=== PATIENT | female | born 1955 | race Caucasian/White ===

== ENCOUNTER → 2018-09-20 10:39 | Outpatient (CLI) | payer OTHER, SELFPAY ==
[2018-09-20 10:47] LABS: Bacteria 0 SEEN /hpf (None Seen); Mucous, Urine 0 SEEN /hpf (<or=2+); Red Blood Cells-Urine 0 SEEN /hpf (0-5); Squamous Epithelial Cells - UA 0 SEEN /hpf (5-10); White Blood Cells 0 SEEN /hpf (0-5)
[2018-09-20 12:37] LABS: Absolute Lymphocyte Count 2.64 X10^3/ul (0.83-4.51); Absolute Neutrophil Count 4.2 X10^3/uL (2.0-7.7); Basophil# 0.04 X10^3/uL; Basophil% 0.5 % (0-1); Eosinophil# 0.14 X10^3/uL; Eosinophils% 1.8 % (0-5); Hematocrit 36.3 % (37-47); Hemoglobin 11.7 g/dl (12.0-15.0); Lymphocyte # 2.64 X10^3/ul (4.0); Lymphocyte % 34.2 % (19-41); Mean Corp Hgb Conc 32.2 g/gl (32-36); Mean Corpuscular Hgb 26.8 pg (27.0-32.0); Mean Corpuscular Volume 83.3 fL (81-99); Mean Platelet Vol. 11.6 fl (6.2-12.0); Monocyte# 0.72 X10^3/uL; Monocyte% 9.3 % (0-10); Neutrophil # 4.15 X10^3/uL (2.7-7.7); Neutrophil % 53.8 % (47-70); Platelet Count 331 K/mm3 (150-450); RBC Distribution Width CV 14.8 % (11.6-14.6); RBC Distribution Width SD 44.4 fl (35.1-43.9); Red Blood Count 4.36 M/mm3 (4.2-5.4); White Blood Count 7.7 K/mm3 (4.4-11.0)
[2018-09-20 12:39] LABS: Color, Urine Yellow (Yellow); Glucose, Dipstick Normal (Normal); Ketone-Dipstick Negative (Negative); Leukocyte Esterase-Dipstick 25 /ul (Negative); Nitrite-Dipstick Negative (Negative); Occult Blood-Urine Negative /ul (Negative); Protein-Dipstick Negative (Negative); Specific Gravity, Urine 1.015 (1.002-1.030); Urine Bilirubin Dipstick Negative (Negative); Urine Clarity Clear (Clear); Urine Urobilinogen Normal (Normal)
[2018-09-20 12:41] LABS: POSITIVE COUNT NO; POSITIVE DIFFERENTIAL NO; POSITIVE MORPHOLOGY NO
[2018-09-20 12:50] LABS: Microalbumin,Random Urine 5.3 mg/L (NO RANGE EST.)
[2018-09-20 13:09] LABS: Hemoglobin A1c 6.9 % (4.2-6.3)
[2018-09-20 13:16] LABS: ALB/GLOB Ratio 1.2 RATIO (0.9-2.4); AST(SGOT) 19 U/L (15-37); Alanine Aminotransfer ALT/SGPT 30 U/L (13-56); Albumin, Serum 4.3 g/dL (3.2-5.0); Alkaline Phosphatase 41 U/L (45-117); Anion Gap 8 (5-15); BUN 19 mg/dL (7-18); BUN/Creat Ratio 22.9 RATIO (10-20); CPK Total, Creatine Kinase 103 U/L (26-192); Calcium,Total 9.3 mg/dL (8.5-10.1); Chloride 103 mmol/L (98-107); Cholesterol 169 mg/dL (200); Creatinine, Serum 0.83 mg/dL (0.55-1.02); EST Glomerular Filtration Rate 74 mL/min (>60); Est Glom Filt Rate - Afr Amer 90 mL/min (>60); Ferritin 6 ng/mL (8-252); Globulin 3.6 g/dL (2.2-4.2); Glucose 88 mg/dL (74-106); High Density Lipoprotein 55 mg/dL; Magnesium 1.6 mg/dL (1.6-2.6); Potassium 3.9 mmol/L (3.5-5.1); Protein, Total 7.9 g/dL (6.4-8.2); Sodium Level 137 mmol/L (136-145); T4 Free Direct 0.96 ng/dL (0.76-1.46); Thyroid Stim Hormone (TSH) 2.35 uIU/mL (0.358-3.74); Triglycerides 165 mg/dL; Very Low Density Lipoprotein 33 mg/dL (5-40)
[2018-09-20 14:16] LABS: Vitamin D,25 Hydroxy 43.2 ng/mL (29.95-100.01)
[2018-09-21 11:44] LABS: Iron 34 ug/dL (50-170); Iron Binding Capacity,Total 368 ug/dL (250-450); PERCENT IRON SATURATION 9.2 % (15.0-55.0)
== END ==
PROVIDERS: Family Provider Family Medicine; PCP Family Medicine; Referring Provider Family Medicine; Visit Provider Family Medicine
DX: I10 Essential (primary) hypertension (principal); E78.5 Hyperlipidemia, unspecified; E11.9 Type 2 diabetes mellitus without complications; E04.1 Nontoxic single thyroid nodule; D64.9 Anemia, unspecified; E55.9 Vitamin D deficiency, unspecified; R25.2 Cramp and spasm
CPT/HCPCS: 36415; 80053; 80061; 81001; 82043; 82306; 82550; 82570; 82728; 83036; 83540; 83550; 83735; 84439; 84443; 85025

== ENCOUNTER → 2018-10-11 10:19 | Outpatient (CLI) | payer OTHER, SELFPAY ==
[2018-10-11 12:39] LABS: Absolute Lymphocyte Count 2.48 X10^3/ul (0.83-4.51); Absolute Neutrophil Count 4.7 X10^3/uL (2.0-7.7); Basophil# 0.05 X10^3/uL; Basophil% 0.6 % (0-1); Eosinophil# 0.13 X10^3/uL; Eosinophils% 1.6 % (0-5); Hematocrit 35.5 % (37-47); Hemoglobin 11.4 g/dl (12.0-15.0); Lymphocyte # 2.48 X10^3/ul (4.0); Lymphocyte % 30.8 % (19-41); Mean Corp Hgb Conc 32.1 g/gl (32-36); Mean Corpuscular Hgb 27.1 pg (27.0-32.0); Mean Corpuscular Volume 84.3 fL (81-99); Mean Platelet Vol. 10.9 fl (6.2-12.0); Monocyte# 0.67 X10^3/uL; Monocyte% 8.3 % (0-10); Neutrophil % 58.6 % (47-70); Platelet Count 333 K/mm3 (150-450); RBC Distribution Width SD 46.3 fl (35.1-43.9); Red Blood Count 4.21 M/mm3 (4.2-5.4)
[2018-10-11 12:44] LABS: POSITIVE COUNT NO; POSITIVE DIFFERENTIAL NO; POSITIVE MORPHOLOGY NO
[2018-10-11 13:01] LABS: Ferritin 9 ng/mL (8-252); Iron 62 ug/dL (50-170); Iron Binding Capacity,Total 368 ug/dL (250-450)
== END ==
PROVIDERS: Family Provider Family Medicine; PCP Family Medicine; Referring Provider Family Medicine; Visit Provider Family Medicine
DX: D50.9 Iron deficiency anemia, unspecified (principal)
CPT/HCPCS: 36415; 82728; 83540; 83550; 85025

== ENCOUNTER → 2018-10-12 13:12 | Outpatient (CLI) | payer OTHER, SELFPAY ==
--- NOTE | 2018-10-12 13:18 | ECHOD_ITS ---
Reason For Study: Murmur Procedure This was a 2D Doppler, Color Flow transthoracic echocardiogram. Exam performed in department. Left Ventricle Normal size and thickness. Left ventricular systolic function is normal. The estimated ejection fraction is 60 %. No evidence for diastolic dysfunction. No regional wall motion abnormalities noted. Right Ventricle Normal RV size. Normal systolic function. Atria Normal left atrium. Normal right atrium. No doppler evidence for ASD. Mitral Valve Anterior leaflet diffuse mitral valve thickening. There is no mitral valve stenosis. No mitral valve insufficiency. Tricuspid Valve There is no tricuspid stenosis. Unable to estimate RV systolic pressure due to insufficient tricuspid regurgitant envelope. No tricuspid valve insufficiency. Aortic Valve Trisinus/trileaflet aortic valve. Mild diffuse aortic valve thickening. There is no aortic stenosis. No aortic valve insufficiency. Pulmonic Valve There is no pulmonic valvular stenosis. No pulmonic valve insufficiency. Great Vessels Normal aortic root. Pericardium/Pleural No pericardial effusion. MMode/2D Measurements & Calculations LVIDd: 4.4 cm IVSd: 0.84 cm LVOT diam: 2.1 cm LVIDs: 2.6 cm LVPWd: 0.99 cm LVOT area: 3.5 cm2 RVDd: 3.1 cm FS: 40.8 % Ao root diam: 3.4 cm LAV(MOD-bp): 28.2 ml LA A4 area: 11.9 cm2 LAV(MOD-bp) Indexed: 15.8 ml/m2 LAV(MOD-sp2): 31.7 ml LAV(MOD-sp4): 26.1 ml RA A4 area: 11.9 cm2 Doppler Measurements & Calculations MV E max anibal: 80.4 cm/sec Lat Peak E' Anibal: 11.7 cm/sec Med Peak E' Anibal: 8.9 cm/sec MV A max anibal: 92.3 cm/sec E/E' lat: 6.9 E/E' med: 9.1 MV E/A: 0.87 Ao V2 max: 201.5 cm/sec LV V1 max: 133.3 cm/sec SV(LVOT): 86.0 ml Ao max P.3 mmHg LV V1 max P.1 mmHg Ao V2 mean: 130.2 cm/sec LV V1 mean P.5 mmHg Ao mean P.7 mmHg LV V1 mean: 88.2 cm/sec Ao V2 VTI: 34.3 cm LV V1 VTI: 24.4 cm JOS(I,D): 2.5 cm2 JOS(V,D): 2.3 cm2 PA V2 max: 99.1 cm/sec Interpretation Summary Left ventricular systolic function is normal. The estimated ejection fraction is 60 %. No evidence for diastolic dysfunction. Mild diffuse aortic valve thickening. Anterior leaflet diffuse mitral valve thickening. Ordering Physician: Marcel Marina Referring Physician: Marcel Marina Performed By: Opal Gentile SURENDRA
--- NOTE | 2018-10-12 14:31 | US_ITS ---
STUDY: THYROID ULTRASOUND REASON FOR EXAM: Female, 63 years old. Thyroid nodules TECHNIQUE: Ultrasound evaluation of the thyroid was performed with real-time and static wallace-scale imaging. COMPARISON: None. FINDINGS: RIGHT LOBE: The right lobe of the thyroid gland measures 3.9 x 1.6 x 1.5 cm. There is a homogeneous echotexture. There are multiple solid nodules within the right lobe. The 3 largest measure. 5 x 3 x 4.4 mm. There is additional solid nodule measuring 1.1 x 0.76 x 0.7 cm. There is a third solid nodule measuring 3.8 x 2.7 x 3.4 mm. LEFT LOBE: The left lobe of the thyroid gland measures 3.3 x 1.2 x 1.6 cm. There is a homogeneous echotexture. There are multiple solid thyroid nodules. The largest 3 nodules measure. 6.3 x 4.7 x 6.6 mm. 5.7 x 3.6 x 6.3 mm. 4.8 x 3.6 x 3.3 mm. ISTHMUS: The isthmus measures 3 mm . The regional lymph nodes are normal. US/Thyroid IMPRESSION: Multinodular goiter, ultrasound follow-up in 6 months is recommended. Electronically Signed: Hamzah Braxton, at 22:18 EDT Tel , Service support ,
== END ==
PROVIDERS: Family Provider Family Medicine; PCP Family Medicine; Referring Provider Family Medicine; Visit Provider Family Medicine
DX: R01.1 Cardiac murmur, unspecified (principal); E04.1 Nontoxic single thyroid nodule
CPT/HCPCS: 76536; 93306

== ENCOUNTER → 2018-10-23 16:26 | Outpatient (CLI) | payer OTHER, SELFPAY ==
--- NOTE | 2018-10-23 09:00 | ASPS_PTH ---
PATIENT: MARTHA FABIAN [facility][id number] AGE/SX: 69/F ROOM: RE10/23/[address]: Dr. Deon Keita MD : 1955 BED: DIS: SPEC #: [id number] RECD: 10/23/18 15:10 STATUS: KATERYNA ANGELA #: [id number] MIKA: 10/23/18 09:[address]: Deon Kieta DEPT: CYTOLOGY RECD BY: Glo Stanley ENTERED: 10/24/18 10:07 SP TYPE: ASPIRATION OTHR DR: Dr. Marcel Marina MD Tissues: Thyroid gland, NOS Procedures: Special Stain Group II Cytology Other HEADER OPERATION: Ultrasound guided fine needle aspiration, right thyroid PRE-OP DIAGNOSIS: Multinodular goiter EO9.2 TISSUE SUBMITTED: Fine needle aspiration, right thyroid DIAGNOSIS CYTOLOGY Right thyroid, ultrasound-guided fine needle aspiration (smears): Consistent with benign follicular nodule. Adequate for evaluation. SJ:neeta 10/25/18 COMMENT Immediate cytologic evaluation to determine adequacy is not applicable. Correlation with clinical, radiologic findings and appropriate follow up are necessary. CYTOLOGY STUDY Slides are reviewed. CYTOLOGY GROSS Received are 12 smears labeled with the patient's name and designated per the requisition as FNA right thyroid. Submitted for staining. / CC:cc 10/24/18 TC:5 CPT: 41363
[2018-10-23 09:11] VITALS: BMI 31.1
== END ==
PROVIDERS: Family Provider Family Medicine; PCP Family Medicine; Referring Provider Surgery; Visit Provider Surgery
DX: E04.2 Nontoxic multinodular goiter (principal)
CPT/HCPCS: 88161; 88313

== ENCOUNTER 2018-12-10 10:00 | Outpatient (RCR) | payer OTHER, SELFPAY ==
[2018-10-23 09:11] VITALS: BMI 31.1
== END 2018-12-19 23:59 ==
LOC: DC 10:00
PROVIDERS: Family Provider Family Medicine; PCP Family Medicine; Visit Provider Family Medicine
DX: Z71.3 Dietary counseling and surveillance (principal); E11.9 Type 2 diabetes mellitus without complications
CPT/HCPCS: 97802; G0108

== ENCOUNTER → 2019-01-04 09:13 | Outpatient (CLI) | payer OTHER, SELFPAY ==
[2018-10-23 09:11] VITALS: BMI 31.1
[2019-01-04 10:19] LABS: Absolute Lymphocyte Count 1.94 X10^3/uL (0.83-4.51); Absolute Neutrophil Count 3.5 X10^3/uL (2.0-7.7); Basophil# 0.06 X10^3/uL; Eosinophil# 0.15 X10^3/uL; Eosinophils% 2.4 % (0-5); Hematocrit 35.2 % (37-47); Hemoglobin 11.3 g/dL (12.0-15.0); Lymphocyte # 1.94 X10^3/ul (4.0); Lymphocyte % 31.5 % (19-41); Mean Corp Hgb Conc 32.1 g/dL (32-36); Mean Corpuscular Volume 87.3 fL (81-99); Mean Platelet Vol. 11.2 fl (6.2-12.0); Monocyte# 0.46 X10^3/uL; Monocyte% 7.5 % (0-10); NRBC Flagged by Analyzer 0 % (0-5); Neutrophil # 3.53 X10^3/uL (2.7-7.7); Neutrophil % 57.3 % (47-70); Platelet Count 260 K/mm3 (150-450); RBC Distribution Width CV 14.3 % (11.6-14.6); RBC Distribution Width SD 46.2 fl (35.1-43.9); Red Blood Count 4.03 M/mm3 (4.2-5.4); White Blood Count 6.2 K/mm3 (4.4-11.0)
[2019-01-04 11:42] LABS: Ferritin 11 ng/mL (8-252); Iron 43 ug/dL (50-170); Iron Binding Capacity,Total 327 ug/dL (250-450); PERCENT IRON SATURATION 13.1 % (15.0-55.0)
== END ==
PROVIDERS: Family Provider Family Medicine; PCP Family Medicine; Referring Provider Family Medicine; Visit Provider Family Medicine
DX: D50.9 Iron deficiency anemia, unspecified (principal)
CPT/HCPCS: 36415; 82728; 83540; 83550; 85025

== ENCOUNTER → 2019-01-11 10:09 | Outpatient (CLI) | payer OTHER, SELFPAY ==
[2018-10-23 09:11] VITALS: BMI 31.1
[2019-01-11 12:39] LABS: Absolute Lymphocyte Count 2.09 X10^3/uL (0.83-4.51); Absolute Neutrophil Count 4.4 X10^3/uL (2.0-7.7); Basophil# 0.07 X10^3/uL; Basophil% 0.9 % (0-1); Eosinophil# 0.18 X10^3/uL; Eosinophils% 2.4 % (0-5); Hematocrit 35.3 % (37-47); Hemoglobin 11.2 g/dL (12.0-15.0); Lymphocyte # 2.09 X10^3/ul (4.0); Lymphocyte % 28.2 % (19-41); Mean Corp Hgb Conc 31.7 g/dL (32-36); Mean Corpuscular Hgb 27.7 pg (27.0-32.0); Mean Corpuscular Volume 87.2 fL (81-99); Mean Platelet Vol. 11.6 fl (6.2-12.0); Monocyte# 0.63 X10^3/uL; Monocyte% 8.5 % (0-10); NRBC Flagged by Analyzer 0 % (0-5); Neutrophil # 4.42 X10^3/uL (2.7-7.7); Neutrophil % 59.6 % (47-70); Platelet Count 284 K/mm3 (150-450); RBC Distribution Width CV 14.5 % (11.6-14.6); RBC Distribution Width SD 46.3 fl (35.1-43.9); Red Blood Count 4.05 M/mm3 (4.2-5.4); White Blood Count 7.4 K/mm3 (4.4-11.0)
[2019-01-11 12:52] LABS: ALB/GLOB Ratio 1.1 RATIO (0.9-2.4); AST(SGOT) 16 U/L (15-37); Alanine Aminotransfer ALT/SGPT 27 U/L (13-56); Albumin, Serum 4.1 g/dL (3.2-5.0); Alkaline Phosphatase 33 U/L (45-117); Anion Gap 9 (5-15); BUN 23 mg/dL (7-18); BUN/Creat Ratio 23.6 RATIO (10-20); Calcium,Total 9.4 mg/dL (8.5-10.1); Chloride 105 mmol/L (98-107); Cholesterol 147 mg/dL (200); Creatinine, Serum 0.98 mg/dL (0.55-1.02); EST Glomerular Filtration Rate 62 mL/min (>60); Est Glom Filt Rate - Afr Amer 75 mL/min (>60); Globulin 3.9 g/dL (2.2-4.2); Glucose 90 mg/dL (74-106); High Density Lipoprotein 45 mg/dL; Potassium 4.2 mmol/L (3.5-5.1); Sodium Level 140 mmol/L (136-145); Triglycerides 175 mg/dL; Very Low Density Lipoprotein 35 mg/dL (5-40)
[2019-01-11 13:01] LABS: Vitamin D,25 Hydroxy 50.8 ng/mL (29.95-100.01)
[2019-01-11 13:03] LABS: Hemoglobin A1c 6.3 % (4.2-6.3)
== END ==
PROVIDERS: Family Provider Family Medicine; PCP Family Medicine; Referring Provider Family Medicine; Visit Provider Family Medicine
DX: E11.9 Type 2 diabetes mellitus without complications (principal); I10 Essential (primary) hypertension; E78.5 Hyperlipidemia, unspecified; E55.9 Vitamin D deficiency, unspecified
CPT/HCPCS: 36415; 80053; 80061; 82306; 83036; 85025

== ENCOUNTER 2019-01-17 10:00 | Outpatient (RCR) | payer OTHER, SELFPAY ==
[2018-10-23 09:11] VITALS: BMI 31.1
== END 2019-01-19 23:59 ==
LOC: DC 10:00
PROVIDERS: Family Provider Family Medicine; PCP Family Medicine; Visit Provider Family Medicine
DX: E11.9 Type 2 diabetes mellitus without complications (principal); Z71.3 Dietary counseling and surveillance
CPT/HCPCS: 97803; G0108

== ENCOUNTER 2019-02-04 09:23 | Outpatient (RCR) | payer OTHER, SELFPAY ==
[2018-10-23 09:11] VITALS: BMI 31.1
[2019-01-22 13:06] VITALS: BMI 31.1
== END 2019-02-04 13:18 | disposition home or self-care (01) ==
LOC: DC 09:23
PROVIDERS: Family Provider Family Medicine; PCP Family Medicine; Visit Provider Family Medicine
DX: E11.9 Type 2 diabetes mellitus without complications (principal); Z71.3 Dietary counseling and surveillance
CPT/HCPCS: 97803

== ENCOUNTER 2019-02-06 07:13 | Day surgery (SDC) | payer OTHER, SELFPAY ==
--- NOTE | 2019-01-22 01:07 | HP_ITS ---
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 Required: No Is patient in pain?: No Allergies No Known Allergies Allergy (Unverified 01/22/19 13:04) Medications aspirin 81 mg tablet,delayed release 81 mg PO DAILY 10/19/18 [History Confirmed 01/22/19] lisinopril 5 mg tablet 5 mg PO DAILY 10/19/18 [History Confirmed 01/22/19] lovastatin 40 mg tablet 40 mg PO DAILY 10/19/18 [History Confirmed 01/22/19] metformin 500 mg tablet 500 mg PO BID 10/19/18 [History Confirmed 01/22/19] niacin 50 mg tablet 50 mg PO .qid tab 10/19/18 [History Confirmed 01/22/19] verapamil 40 mg tablet 40 mg PO BID 10/19/18 [History Confirmed 01/22/19] omeprazole 40 mg capsule,delayed release 40 mg PO DAILY 01/22/19 [History Confirmed 01/22/19] [facility] Medical History Anemia (Acute) Constipation (Acute) Diarrhea (Acute) Hemorrhoids (Acute) Nausea (Acute) Abdominal pain (Acute) Anxiety (Acute) Heart murmur (Acute) Arthritis (Acute) Rash (Acute) Thyroid disease (Acute) Fatigue (Acute) Multinodular goiter (Acute) Hypercholesterolemia (Acute) Hypertension (Chronic) Diabetes (Acute) Surgical History Hx of colonoscopy (Acute) Hx of biopsy (Acute) History of hysterectomy (Acute) History of (Acute) Family History Mother Cancer Hypertension Hypercholesterolemia CVA (cerebral vascular accident) Father Heart disease Hypercholesterolemia Hypertension Kidney disease Social History (Updated 01/22/19 @ 13:08 by Deon Keita MD) Smoking Status: Never smoker alcohol intake: never substance use type: does not use caffeine: Yes what type of physical activity do you participate in: walking frequency: 1-2 times per week HPI HPI HPI: MARTHA FABIAN, is a 63 F who presents to the office today for HPI HPI Surgical H&P: Yes HPI: MARTHA FABIAN, is a 63 F who presents to the office today for Evaluation for anemia. Patient has been started on Iron by her primary care physician, She had a Hemoccult test this past September which was negative. She is complaining of intermittent diarrhea off and on with constipation she also has epigastric discomfort and heartburn and the sensation of water brash taste in her mouth in the mornings particularly. Patient has had a colonoscopy back in 2013 which was negative. ROS General General: Yes fatigue; no weight change, appetite, colon cancer, breast cancer or weakness HEENT HEENT: No difficulty swallowing, eye injury, eye surgery, swollen glands or hoarseness Endo Endocrine: Yes thyroid disease and diabetes mellitus; no thyroid cancer, Hair loss, heat intolerance or cold intolerance Skin Skin: Yes rash; no changing moles Musc Musculoskeletal: Yes back problems and arthritis; no rheumatoid arthritis, gout or joint pain Cardio Cardiovascular: Yes murmur and high blood pressure; no pacemaker, heart disease, atrial fibrillation, heart attack, heart stent, palpitations, shortness of breat with exertion or chest pain Psych Psychiatric: Yes anxiety; no depression or hearing voices Resp Respiratory: No shortness of breath, No sleep apnea, No cough, No COPD, No asthma, No emphysema, No wheezing Gastro Gastrointestinal: Yes abdominal pain, Yes nausea or vomiting, Yes diarrhea, Yes constipation, No blood in stool, No acid reflux, Yes hemorrhoids, No ulcers, No gallbladder problem, No black,tarry stools [place]idal Hematologic: Yes blood thinners, No blood disorders, No bleeding, Yes anemia, No blood clots Neuro Neurologic: No system reviewed and no additional complaints, except as docu, No as per HPI, No abnormal walking, No abnormal hearing, No abnormal movements, No abnormal speech, No behavioral changes, No burning sensations, No confusion, No seizure-like activity, No unsteadiness, No dizziness, No localized weakness, No frequent falls, No headache(s), No lack of coordination, No loss of vision, No memory loss, No numbness, No other visual disturbances, No radiating pain, No restless legs, No sensory deficit, No fainting, No tingling, No tremor(s), No weakness, No other Exam Const General: no acute distress, well developed, well hydrated Orientation: oriented to person, oriented to place, oriented to time [facility] Head: normocephalic, atraumatic Ears: external ears normal Mouth: moist mucous membranes Eyes Sclera: sclerae normal Pupils: normal by confrontation Neck Neck: no lymphadenopathy noted Neck mass: No Thyroid: thyroid normal, symmetrical Chest Chest palpation & inspection: normal inspection of the chest Resp Effort & Inspection: normal respiratory effort Auscultation: clear to auscultation bilaterally Percussion: percussion normal Cardio Rate: regular rate Rhythm: regular rhythm Heart Sounds: murmur GI Palpation: soft, no hepatosplenomegaly, no masses, nontender Rectal Exam: other Other: Rectal exam deferred. Extrem General: normal to inspection, no clubbing, cyanosis or edema Assessment & Plan Problems 1. Iron deficiency anemia, unspecified iron deficiency anemia type D50.9 2. Heartburn R12 3. Epigastric pain R10.13 4. Diarrhea, unspecified type R19.7 Plan I have discussed the above with the patient. I have offered the patient colonoscopy As well as an EGD for evaluation. I have explained the risks/benefits of the procedure and described the procedure. I have discussed the risks with the patient, including but not limited to: infection, bleeding, perforation of the GI tract requiring emergency surgery, inability to complete the procedure, injury to any internal organs, complications of anesthesia, etc. - the patient understands and agrees to proceed. I have answered all the patient's questions to the patient's satisfaction and the patient has no further questions. The patient has been given instructions for the colon cleansing preparation. We will be doing random colon biopsies Coding Level of Care Code Off vis,est,level 3 Diagnoses Iron deficiency anemia, unspecified iron deficiency anemia type D50.9 ??Iron deficiency anemia type: unspecified iron deficiency Heartburn R12 Epigastric pain R10.13 Diarrhea, unspecified type R19.7 ??Diarrhea type: unspecified type 01/22/19 1308 <Electronically signed by Deon buckner MD> Date _ Deon Keita MD I have re-examined the patient. There are no clinical changes since date of exam.
[2019-01-22 13:06] VITALS: BMI 31.1
[2019-02-06 07:30] VITALS: BP 138/71; PULSE 68; RESP 16; TEMP 36.4; O2SAT 100; BMI 29.2
[2019-02-06] MEDS: Lactated Ringers 1,000 ML 75 ML IV (08:15)
--- NOTE | 2019-02-06 08:30 | IMM_PTH ---
PATIENT: MARTHA FABIAN LOC: [facility] U#:[id number] AGE/SX: 63/F ROOM: RE02/06/[address]: Dr. Deon Keita MD : 1955 BED: DIS: 02/06/2019 SPEC #: [id number] RECD: 02/06/19 12:53 STATUS: KATERYNA REMia #: [id number] MIKA: 02/06/19 08:[address]: Deon Keita DEPT: IMMUNOHISTOCHEMISTRY RECD BY: Mohini Alvarez ENTERED: 02/06/19 12:54 SP TYPE: IMMUNO OTHR DR: Dr. Marcel Marina MD Tissues: A - Stomach, NOS Procedures: H Pylori (initial) PHYSICIAN & INSTITUTION [place] [address] SPECIMEN INFORMATION: Tissue Source: A - Antral biopsy Clinical Info: Diarrhea, anemia, heartburn, epigastric pain Specimen Number: [id number] CPT code: 15481 METHODOLOGY: Deparaffinized sections of prefer/formalin-fixed tissue or PAP/DQ stained slides are incubated with monoclonal/polyclonal antibodies/oligonucleotide probes. Localization is made via biotin free immunoperoxidase method. Appropriate controls are performed and reacted as expected. Results on target cell population are indicated in the following table: RESULTS: ANTIBODY / CLONE RESULT Block A H Pylori (polyclonal) negative These tests were developed and their performance characteristics determined by [facility]. They may not have been cleared or approved by the U.S. Food and Drug Administration. The FDA has determined that such clearance or approval is not necessary. INTERPRETATION: A. Antral biopsy: Negative for Helicobacter pylori organisms. AM:neeta 02/07/19
--- NOTE | 2019-02-06 08:30 | EGD_PTH ---
PATIENT: MARTHA FABIAN LOC: [facility] U#:[id number] AGE/SX: 63/F ROOM: RE02/06/[address]: Dr. Deon Keita MD : 1955 BED: DIS: 02/06/2019 SPEC #: [id number] RECD: 02/06/19 10:44 STATUS: KATERYNA ANGELA #: [id number] MIKA: 02/06/19 08:[address]: Deon Keita DEPT: SURGICAL PATHOLOGY RECD BY: Glo Stanley ENTERED: 02/06/19 11:34 SP TYPE: EGD BIOPSY [facility] DR: Dr. Marcel Marina MD Tissues: A - Gastric mucous membrane B - COLON BIOPSY C - Cecum, NOS Procedures: Surgery Specimen Level IV HEADER OPERATION: Colonoscopy, EGD ([facility] [place]) PRE-OP DIAGNOSIS: Diarrhea, anemia, heartburn, epigastric pain TISSUE SUBMITTED: A. Antral biopsy for H. pylori, B. Random colonic biopsies, C. Cecal polyp MICROSCOPIC DIAGNOSIS A. Gastric antrum, biopsy: Mild chronic gastritis. See comment. B. Colon, random biopsy: No pathologic change. C. Cecal polyp, biopsy: Focal ulceration with associated granulation and acute and chronic inflammation. See comment. AM:neeta 02/07/19 COMMENT A. The results of immunohistochemistry for Helicobacter pylori will be reported separately ([id number]). C. Changes of inflammatory bowel disease are not present. Clinical correlation is suggested. MICROSCOPIC DESCRIPTION Slides are reviewed. GROSS DESCRIPTION A - Received in fixative is one container labeled with the patient's name and designated antral biopsy. The specimen consists of one irregular fragment of light otero soft tissue that measures 0.6 x 0.3 x 0.1 cm. The specimen is totally submitted in one cassette. B - Received in fixative is one container labeled with the patient's name and designated random colon biopsy. The specimen consists of multiple irregular fragments of light otero soft tissue that in aggregate measure 2 x 0.6 x 0.1 cm. The specimen is totally submitted in one cassette. C - Received in fixative is one container labeled with the patient's name and designated cecal polyp. The specimen consists of two irregular fragments of light otero soft tissue that in aggregate measure 0.6 x 0.3 x 0.1 cm. The specimen is totally submitted in one cassette. / SJ:rg 02/06/19 TC:2 CPT: 66086 x3
[2019-02-06 08:31] LABS: Bedside Glucose 117 mg/dL (70-110)
[2019-02-06 08:58] VITALS: BP 138/71; BP 99/60; PULSE 62; RESP 18; TEMP 36.3; O2SAT 95
[2019-02-06 09:05] VITALS: BP 107/60; BP 138/71; PULSE 64; RESP 18; O2SAT 95
[2019-02-06 09:10] VITALS: BP 138/71; BP 98/53; PULSE 60; RESP 17; O2SAT 96
--- NOTE | 2019-02-06 09:10 | OP.ENDO_ITS ---
02/06/2019 Marcel Marina [address] [place] [address] Re : Upper GI endoscopy procedure for Gayle Singh Dear Dr. Marina This procedure was performed on Wednesday, February 06, 2019. My impressions and recommendations are as follows: Impressions : - Normal esophagus. - Z-line regular, 37 cm from the incisors. - Erythematous mucosa in the prepyloric region of the stomach. Biopsied. - Normal examined duodenum. No specimens collected. Recommendations : - Discharge patient to home. - Resume previous diet. - Continue present medications. - Await pathology results. - Repeat upper endoscopy. - Return to my office in 1 week. My findings are described in the full procedure note, which is enclosed. If I can be of further assistance, please feel free to contact me at Doctor phone number(s): , Fax: [phone], Work: . Sincerely, MD Deon Romero MD 02/06/2019 9:09:38 AM This report has been signed electronically.
--- NOTE | 2019-02-06 09:12 | OP.ENDO_ITS ---
02/06/2019 Marcel Marina [address] [place] [address] Re : Colonoscopy procedure for Gayle Singh Dear Dr. Marina This procedure was performed on Wednesday, February 06, 2019. My impressions and recommendations are as follows: Impressions : - One 4 mm polyp in the cecum, removed with a jumbo cold forceps. Resected and retrieved. - The entire examined colon is normal. Biopsied. - The examination was otherwise normal. Recommendations : - Discharge patient to home. - Resume previous diet. - Continue present medications. - Await pathology results. - Repeat colonoscopy in 5 years for surveillance based on pathology results. - Return to my office in 1 week. My findings are described in the full procedure note, which is enclosed. If I can be of further assistance, please feel free to contact me at Doctor phone number(s): , Fax: [phone], Work: . Sincerely, MD Deon Romero MD 02/06/2019 9:12:29 AM This report has been signed electronically.
[2019-02-06 09:15] VITALS: BP 110/56; BP 138/71; PULSE 60; RESP 18; TEMP 36.5; O2SAT 99
[2019-02-06 09:46] VITALS: BP 138/71
== END 2019-02-06 09:47 | disposition home or self-care (01) ==
LOC: EN 07:13 → AC 07:14
PROVIDERS: Family Provider Family Medicine; PCP Family Medicine; Referring Provider Family Medicine; Visit Provider Surgery
PROC: 0DJD8ZZ Inspection of Lower Intestinal Tract, Via Natural or Artificial Opening Endoscopic (ICD-10-PCS; CPT 45378; principal; 2019-02-06 08:25)
DX: D12.0 Benign neoplasm of cecum (principal); D50.9 Iron deficiency anemia, unspecified; K29.50 Unspecified chronic gastritis without bleeding; K59.00 Constipation, unspecified; R19.7 Diarrhea, unspecified; E11.9 Type 2 diabetes mellitus without complications; E04.2 Nontoxic multinodular goiter; E78.00 Pure hypercholesterolemia, unspecified; M19.90 Unspecified osteoarthritis, unspecified site; F32.9 Major depressive disorder, single episode, unspecified; F41.9 Anxiety disorder, unspecified; K21.9 Gastro-esophageal reflux disease without esophagitis; Z78.0 Asymptomatic menopausal state; Z79.84 Long term (current) use of oral hypoglycemic drugs; Z79.82 Long term (current) use of aspirin; Z79.899 Other long term (current) drug therapy
CPT/HCPCS: 43239; 45380; 82962; 88305; 88342; J7120; J1610

== ENCOUNTER → 2019-04-04 10:26 | Outpatient (CLI) | payer OTHER, SELFPAY ==
[2019-04-04 12:29] LABS: Hemoglobin A1c 6.5 % (4.2-6.3)
[2019-04-04 12:30] LABS: Absolute Lymphocyte Count 2.61 X10^3/uL (0.83-4.51); Absolute Neutrophil Count 4.4 X10^3/uL (2.0-7.7); Basophil# 0.06 X10^3/uL; Basophil% 0.8 % (0-1); Eosinophil# 0.12 X10^3/uL; Eosinophils% 1.5 % (0-5); Hematocrit 41.7 % (37-47); Hemoglobin 13.2 g/dL (12.0-15.0); Lymphocyte # 2.61 X10^3/ul (4.0); Lymphocyte % 33.6 % (19-41); Mean Corp Hgb Conc 31.7 g/dL (32-36); Mean Corpuscular Hgb 27.7 pg (27.0-32.0); Mean Corpuscular Volume 87.4 fL (81-99); Mean Platelet Vol. 11.3 fl (6.2-12.0); Monocyte# 0.54 X10^3/uL; Monocyte% 6.9 % (0-10); NRBC Flagged by Analyzer 0 % (0-5); Neutrophil # 4.41 X10^3/uL (2.7-7.7); Neutrophil % 56.8 % (47-70); Platelet Count 320 K/mm3 (150-450); RBC Distribution Width CV 13.5 % (11.6-14.6); Red Blood Count 4.77 M/mm3 (4.2-5.4); White Blood Count 7.8 K/mm3 (4.4-11.0)
[2019-04-04 12:34] LABS: Vitamin D,25 Hydroxy 65.9 ng/mL (29.95-100.01)
[2019-04-04 12:46] LABS: AST(SGOT) 18 U/L (15-37); Alanine Aminotransfer ALT/SGPT 24 U/L (13-56); Albumin, Serum 4.3 g/dL (3.2-5.0); Alkaline Phosphatase 37 U/L (45-117); Anion Gap 9 (5-15); BUN 19 mg/dL (7-18); BUN/Creat Ratio 22.2 RATIO (10-20); Calcium,Total 9.5 mg/dL (8.5-10.1); Chloride 102 mmol/L (98-107); Cholesterol 178 mg/dL (200); Creatinine, Serum 0.86 mg/dL (0.55-1.02); EST Glomerular Filtration Rate 72 mL/min (>60); Est Glom Filt Rate - Afr Amer 87 mL/min (>60); Ferritin 14 ng/mL (8-252); Globulin 4.1 g/dL (2.2-4.2); Glucose 105 mg/dL (74-106); High Density Lipoprotein 45 mg/dL; Iron 49 ug/dL (50-170); Iron Binding Capacity,Total 343 ug/dL (250-450); Protein, Total 8.4 g/dL (6.4-8.2); Sodium Level 137 mmol/L (136-145); Triglycerides 141 mg/dL; Very Low Density Lipoprotein 28 mg/dL (5-40)
== END ==
PROVIDERS: Family Provider Family Medicine; PCP Family Medicine; Referring Provider Family Medicine; Visit Provider Family Medicine
DX: I10 Essential (primary) hypertension (principal); D50.9 Iron deficiency anemia, unspecified; E11.9 Type 2 diabetes mellitus without complications; E78.5 Hyperlipidemia, unspecified; E55.9 Vitamin D deficiency, unspecified
CPT/HCPCS: 36415; 80053; 80061; 82306; 82728; 83036; 83540; 83550; 85025

== ENCOUNTER → 2019-07-03 09:13 | Outpatient (CLI) | payer OTHER, SELFPAY ==
[2019-07-03 10:30] LABS: Absolute Lymphocyte Count 2.81 X10^3/uL (0.83-4.51); Absolute Neutrophil Count 4.3 X10^3/uL (2.0-7.7); Basophil# 0.06 X10^3/uL; Basophil% 0.8 % (0-1); Eosinophil# 0.15 X10^3/uL; Eosinophils% 1.9 % (0-5); Hematocrit 39.6 % (37-47); Hemoglobin 12.4 g/dL (12.0-15.0); Lymphocyte # 2.81 X10^3/ul (4.0); Lymphocyte % 35.9 % (19-41); Mean Corp Hgb Conc 31.3 g/dL (32-36); Mean Corpuscular Hgb 27.8 pg (27.0-32.0); Mean Corpuscular Volume 88.8 fL (81-99); Monocyte% 6.4 % (0-10); NRBC Flagged by Analyzer 0 % (0-5); Neutrophil # 4.27 X10^3/uL (2.7-7.7); Neutrophil % 54.6 % (47-70); Platelet Count 272 K/mm3 (150-450); RBC Distribution Width CV 14.3 % (11.6-14.6); RBC Distribution Width SD 46.1 fl (35.1-43.9); Red Blood Count 4.46 M/mm3 (4.2-5.4); White Blood Count 7.8 K/mm3 (4.4-11.0)
[2019-07-03 10:50] LABS: ALB/GLOB Ratio 1.1 RATIO (0.9-2.4); AST(SGOT) 18 U/L (15-37); Alanine Aminotransfer ALT/SGPT 27 U/L (13-56); Albumin, Serum 4.2 g/dL (3.2-5.0); Alkaline Phosphatase 37 U/L (45-117); Anion Gap 4 (5-15); BUN 16 mg/dL (7-18); BUN/Creat Ratio 18.1 RATIO (10-20); Calcium,Total 9.4 mg/dL (8.5-10.1); Chloride 103 mmol/L (98-107); Cholesterol 145 mg/dL (200); Creatinine, Serum 0.88 mg/dL (0.55-1.02); EST Glomerular Filtration Rate 69 mL/min (>60); Est Glom Filt Rate - Afr Amer 84 mL/min (>60); Ferritin 12 ng/mL (8-252); Globulin 3.8 g/dL (2.2-4.2); Glucose 125 mg/dL (74-106); High Density Lipoprotein 64 mg/dL; Iron 46 ug/dL (50-170); Iron Binding Capacity,Total 340 ug/dL (250-450); Potassium 4.2 mmol/L (3.5-5.1); Sodium Level 137 mmol/L (136-145); Triglycerides 95 mg/dL; Very Low Density Lipoprotein 19 mg/dL (5-40)
[2019-07-03 10:53] LABS: Vitamin D,25 Hydroxy 55.7 ng/mL (29.95-100.01)
== END ==
PROVIDERS: PCP Family Medicine; Referring Provider Family Medicine; Visit Provider Family Medicine
DX: I10 Essential (primary) hypertension (principal); D50.9 Iron deficiency anemia, unspecified; E78.5 Hyperlipidemia, unspecified; E11.9 Type 2 diabetes mellitus without complications; E55.9 Vitamin D deficiency, unspecified
CPT/HCPCS: 36415; 80053; 80061; 82306; 82728; 83036; 83540; 83550; 85025

== ENCOUNTER → 2019-08-06 11:34 | Outpatient (CLI) | payer OTHER, SELFPAY ==
[2019-08-06 15:46] LABS: CRP < 2.90 mg/L (0.0-3.0)
[2019-08-06 15:56] LABS: Erythrocyte Sedimentation Rate 12 mm/hr (0-30)
[2019-08-08 16:39] LABS: ANTINUCLEAR ANTIBODIES DIRECT Negative (Negative); Anti-dsDNA Ab <1 IU/mL (0-9)
[2019-08-08 16:41] LABS: Anti-Cardiolipin Ab, IgA, Qn < 9 APL U/mL (0-11); Anti-Cardiolipin Ab, IgG, Qn < 9 GPL U/mL (0-14); Anti-Cardiolipin Ab, IgM, Qn 30 MPL U/mL (0-12)
== END ==
PROVIDERS: PCP Family Medicine; Referring Provider Family Medicine; Visit Provider Family Medicine
DX: R21 Rash and other nonspecific skin eruption (principal)
CPT/HCPCS: 36415; 85652; 86038; 86140; 86147; 86225

== ENCOUNTER → 2019-11-29 09:11 | Outpatient (CLI) | payer OTHER, SELFPAY ==
[2019-11-29 10:01] LABS: Absolute Lymphocyte Count 2.61 X10^3/uL (0.83-4.51); Absolute Neutrophil Count 3.4 X10^3/uL (2.0-7.7); Basophil# 0.07 X10^3/uL; Eosinophils% 1.5 % (0-5); Hematocrit 39.8 % (37-47); Hemoglobin 12.9 g/dL (12.0-15.0); Lymphocyte # 2.61 X10^3/ul (4.0); Lymphocyte % 38.7 % (19-41); Mean Corp Hgb Conc 32.4 g/dL (32-36); Mean Corpuscular Hgb 29.1 pg (27.0-32.0); Mean Corpuscular Volume 89.8 fL (81-99); Mean Platelet Vol. 11.2 fl (6.2-12.0); Monocyte# 0.58 X10^3/uL; Monocyte% 8.6 % (0-10); NRBC Flagged by Analyzer 0 % (0-5); Neutrophil # 3.36 X10^3/uL (2.7-7.7); Neutrophil % 49.9 % (47-70); Platelet Count 261 K/mm3 (150-450); RBC Distribution Width CV 13.7 % (11.6-14.6); RBC Distribution Width SD 45.1 fl (35.1-43.9); Red Blood Count 4.43 M/mm3 (4.2-5.4); White Blood Count 6.7 K/mm3 (4.4-11.0)
[2019-11-29 10:32] LABS: Microalbumin,Random Urine 13.3 mg/L (NO RANGE EST.); Microalbumin:Creatinine Ratio 11.9 mg/g CRE (<30 mg/g CRE)
[2019-11-29 10:34] LABS: ALB/GLOB Ratio 1.1 RATIO (0.9-2.4); AST(SGOT) 17 U/L (15-37); Alanine Aminotransfer ALT/SGPT 26 U/L (13-56); Albumin, Serum 4.2 g/dL (3.2-5.0); Alkaline Phosphatase 35 U/L (45-117); Anion Gap 6 (5-15); BUN 14 mg/dL (7-18); Calcium,Total 9.2 mg/dL (8.5-10.1); Chloride 105 mmol/L (98-107); Cholesterol 143 mg/dL (200); Creatinine, Serum 0.82 mg/dL (0.55-1.02); EST Glomerular Filtration Rate 75 mL/min (>60); Est Glom Filt Rate - Afr Amer 90 mL/min (>60); Ferritin 17 ng/mL (8-252); Globulin 3.8 g/dL (2.2-4.2); Glucose 136 mg/dL (74-106); High Density Lipoprotein 53 mg/dL; Iron 76 ug/dL (50-170); Iron Binding Capacity,Total 335 ug/dL (250-450); Potassium 4.1 mmol/L (3.5-5.1); Sodium Level 140 mmol/L (136-145); Triglycerides 116 mg/dL; Very Low Density Lipoprotein 23 mg/dL (5-40)
== END ==
PROVIDERS: PCP Family Medicine; Referring Provider Family Medicine; Visit Provider Family Medicine
DX: I10 Essential (primary) hypertension (principal); D50.9 Iron deficiency anemia, unspecified; E11.9 Type 2 diabetes mellitus without complications; E78.5 Hyperlipidemia, unspecified; E55.9 Vitamin D deficiency, unspecified
CPT/HCPCS: 36415; 80053; 80061; 82043; 82306; 82570; 82728; 83036; 83540; 83550; 85025

== ENCOUNTER → 2019-12-09 09:33 | Outpatient (CLI) | payer OTHER, SELFPAY ==
--- NOTE | 2019-12-09 09:36 | BI_ITS ---
MAMMOGRAPHY - BILATERAL SCREENING 3-D TOMOSYNTHESIS REASON FOR EXAM: Female, 64 years old. Routine screening PERTINENT HISTORY: NO FM HX ,NO SURG ,GAIN 12#, BILAT AXILLARY SKIN TAGS MARKED. TECHNIQUE: 2-D mammograms and 3-D Tomosynthesis of the breast (s) were performed. CAD was performed. COMPARISON: 2018 FINDINGS: The breast composition is almost entirely fat. Scattered benign calcifications are seen. No dense spiculated masses or suspicious microcalcifications are identified. No architectural distortion is identified. There is no skin thickening or retraction. There has been no significant change since the prior study. BI/SCREEN MAMM (CAD) W/MONA BILAT IMPRESSION: No mammographic signs of malignancy. Routine yearly mammograms recommended. ASSESSMENT CATEGORY: BIRADS Category 1: Negative. A letter regarding these results will be sent to the patient by the facility within 30 days. FOLLOW UP RECOMMENDATION: Yearly follow up mammogram recommended. (A) Approximately 10% of breast cancers are not detected by mammography. A normal mammogram should not delay biopsy of a clinically suspicious abnormality. Electronically Signed: Miguel Guevara MD at 11:03 EDT , Service support ,
--- NOTE | 2019-12-09 09:43 | US_ITS ---
STUDY: THYROID ULTRASOUND REASON FOR EXAM: Female, 64 years old. Nodules TECHNIQUE: Ultrasound evaluation of the thyroid was performed with real-time and static wallace-scale imaging. COMPARISON: 10/12/2018 FINDINGS: RIGHT LOBE: The right lobe of the thyroid gland measures 4.3 x 1.6 x 1.3 cm. There is a homogeneous echotexture. 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 All have decreased in size since the previous study. LEFT LOBE: The left lobe of the thyroid gland measures 3.6 x 1.5 x 1.3 cm. There is a homogeneous echotexture. Multiple solid nodules again identified, largest 3 were measured, the largest measures 0.9 x 0.6 x 0.5 cm, all are essentially unchanged from the previous study. ISTHMUS: The isthmus measures 0.3 cm. The regional lymph nodes are normal. US/Thyroid IMPRESSION: Normal sized homogeneous thyroid gland with bilateral solid nodules. Nodules in the right lobe and decrease in size while nodules in the left lobe have remained stable. Findings are again suggestive of goiter. 6 month follow-up again recommended to assure stability Electronically Signed: Miguel Guevara MD at 11:37 EDT , Service support ,
== END ==
PROVIDERS: PCP Family Medicine; Referring Provider Family Medicine; Visit Provider Family Medicine
DX: Z12.31 Encounter for screening mammogram for malignant neoplasm of breast (principal); E04.2 Nontoxic multinodular goiter
CPT/HCPCS: 76536; 77063; 77067

== ENCOUNTER → 2020-03-30 09:27 | Outpatient (CLI) | payer OTHER, SELFPAY ==
[2020-03-30 10:10] LABS: Mucous, Urine 0 SEEN /hpf (<or=2+); Red Blood Cells-Urine 0 SEEN /hpf (0-5); Squamous Epithelial Cells - UA 0 SEEN /hpf (5-10); White Blood Cells 0 SEEN /hpf (0-5)
[2020-03-30 12:24] LABS: Absolute Lymphocyte Count 2.28 X10^3/uL (0.83-4.51); Absolute Neutrophil Count 4.3 X10^3/uL (2.0-7.7); Basophil# 0.04 X10^3/uL; Basophil% 0.5 % (0-1); Eosinophil# 0.13 X10^3/uL; Eosinophils% 1.8 % (0-5); Hematocrit 37.2 % (37-47); Hemoglobin 12.1 g/dL (12.0-15.0); Lymphocyte # 2.28 X10^3/ul (4.0); Lymphocyte % 31.1 % (19-41); Mean Corp Hgb Conc 32.5 g/dL (32-36); Mean Corpuscular Hgb 29.2 pg (27.0-32.0); Mean Corpuscular Volume 89.9 fL (81-99); Mean Platelet Vol. 11.8 fl (6.2-12.0); Monocyte# 0.56 X10^3/uL; Monocyte% 7.7 % (0-10); NRBC Flagged by Analyzer 0 % (0-5); Neutrophil # 4.28 X10^3/uL (2.7-7.7); Neutrophil % 58.5 % (47-70); Platelet Count 265 K/mm3 (150-450); RBC Distribution Width CV 13.3 % (11.6-14.6); RBC Distribution Width SD 43.7 fl (35.1-43.9); Red Blood Count 4.14 M/mm3 (4.2-5.4); White Blood Count 7.3 K/mm3 (4.4-11.0)
[2020-03-30 12:40] LABS: Vitamin D,25 Hydroxy 67.5 ng/mL
[2020-03-30 12:50] LABS: Hemoglobin A1c 7.6 % (3.8-5.6)
[2020-03-30 13:18] LABS: ALB/GLOB Ratio 1.1 RATIO (0.9-2.4); AST(SGOT) 21 U/L (15-37); Alanine Aminotransfer ALT/SGPT 36 U/L (13-56); Albumin, Serum 3.9 g/dL (3.2-5.0); Alkaline Phosphatase 36 U/L (45-117); Anion Gap 7 (5-15); BUN 11 mg/dL (7-18); BUN/Creat Ratio 12.5 RATIO (10-20); Calcium,Total 9.4 mg/dL (8.5-10.1); Chloride 105 mmol/L (98-107); Cholesterol 118 mg/dL (200); Color, Urine Yellow (Yellow); Creatinine, Serum 0.88 mg/dL (0.55-1.02); EST Glomerular Filtration Rate 69 mL/min (>60); Est Glom Filt Rate - Afr Amer 83 mL/min (>60); Ferritin 18 ng/mL (8-252); Globulin 3.7 g/dL (2.2-4.2); Glucose 139 mg/dL (74-106); Glucose, Dipstick Normal (Normal); High Density Lipoprotein 53 mg/dL; Iron 41 ug/dL (50-170); Iron Binding Capacity,Total 300 ug/dL (250-450); Ketone-Dipstick Negative (Negative); Leukocyte Esterase-Dipstick Negative /ul (Negative); Nitrite-Dipstick Negative (Negative); Occult Blood-Urine 10 /ul (Negative); Potassium 3.8 mmol/L (3.5-5.1); Protein, Total 7.6 g/dL (6.4-8.2); Protein-Dipstick Negative (Negative); Sodium Level 142 mmol/L (136-145); Triglycerides 93 mg/dL; Urine Bilirubin Dipstick Negative (Negative); Urine Clarity Clear (Clear); Urine Urobilinogen Normal (Normal); Urine pH 6.5 (5.0 - 8.0); Very Low Density Lipoprotein 19 mg/dL (5-40)
[2020-03-30 13:32] LABS: Bacteria RARE /hpf (None Seen)
== END ==
PROVIDERS: PCP Family Medicine; Referring Provider Family Medicine; Visit Provider Family Medicine
DX: D50.9 Iron deficiency anemia, unspecified (principal); E55.9 Vitamin D deficiency, unspecified; I10 Essential (primary) hypertension; E78.5 Hyperlipidemia, unspecified; E11.9 Type 2 diabetes mellitus without complications
CPT/HCPCS: 36415; 80053; 80061; 81001; 82306; 82728; 83036; 83540; 83550; 85025

== ENCOUNTER → 2020-07-22 09:27 | Outpatient (CLI) | payer OTHER, SELFPAY ==
[2020-07-22 12:17] LABS: Absolute Lymphocyte Count 2.58 X10^3/uL (0.83-4.51); Absolute Neutrophil Count 5.1 X10^3/uL (2.0-7.7); Basophil# 0.08 X10^3/uL; Basophil% 0.9 % (0-1); Eosinophil# 0.08 X10^3/uL; Eosinophils% 0.9 % (0-5); Hematocrit 40.1 % (37-47); Hemoglobin 12.6 g/dL (12.0-15.0); Lymphocyte # 2.58 X10^3/ul (4.0); Lymphocyte % 30.4 % (19-41); Mean Corp Hgb Conc 31.4 g/dL (32-36); Mean Corpuscular Hgb 28.1 pg (27.0-32.0); Mean Corpuscular Volume 89.5 fL (81-99); Mean Platelet Vol. 11.3 fl (6.2-12.0); Monocyte# 0.58 X10^3/uL; Monocyte% 6.8 % (0-10); NRBC Flagged by Analyzer 0 % (0-5); Neutrophil # 5.14 X10^3/uL (2.7-7.7); Neutrophil % 60.8 % (47-70); Platelet Count 283 K/mm3 (150-450); RBC Distribution Width CV 13.5 % (11.6-14.6); RBC Distribution Width SD 44.3 fl (35.1-43.9); Red Blood Count 4.48 M/mm3 (4.2-5.4); White Blood Count 8.5 K/mm3 (4.4-11.0)
[2020-07-22 12:45] LABS: Vitamin D,25 Hydroxy 74.6 ng/mL
[2020-07-22 12:47] LABS: ALB/GLOB Ratio 1.1 RATIO (0.9-2.4); AST(SGOT) 15 U/L (15-37); Alanine Aminotransfer ALT/SGPT 22 U/L (13-56); Albumin, Serum 4.1 g/dL (3.2-5.0); Alkaline Phosphatase 42 U/L (45-117); Anion Gap 8 (5-15); BUN 16 mg/dL (7-18); BUN/Creat Ratio 18.8 RATIO (10-20); Calcium,Total 9.3 mg/dL (8.5-10.1); Chloride 103 mmol/L (98-107); Cholesterol 138 mg/dL (200); Creatinine, Serum 0.85 mg/dL (0.55-1.02); EST Glomerular Filtration Rate 72 mL/min (>60); Est Glom Filt Rate - Afr Amer 87 mL/min (>60); Ferritin 19 ng/mL (8-252); Globulin 3.8 g/dL (2.2-4.2); Glucose 108 mg/dL (74-106); High Density Lipoprotein 54 mg/dL; Iron 49 ug/dL (50-170); Iron Binding Capacity,Total 326 ug/dL (250-450); Protein, Total 7.9 g/dL (6.4-8.2); Sodium Level 138 mmol/L (136-145); Triglycerides 122 mg/dL; Very Low Density Lipoprotein 24 mg/dL (5-40)
[2020-07-22 12:49] LABS: Microalbumin,Random Urine 11.5 mg/L (NO RANGE EST.); Microalbumin:Creatinine Ratio 12.5 mg/g CRE (<30 mg/g CRE)
[2020-07-22 13:03] LABS: Hemoglobin A1c 6.9 % (3.8-5.6)
== END ==
PROVIDERS: PCP Family Medicine; Referring Provider Family Medicine; Visit Provider Family Medicine
DX: E61.1 Iron deficiency (principal); E55.9 Vitamin D deficiency, unspecified; I10 Essential (primary) hypertension; E78.5 Hyperlipidemia, unspecified; E11.9 Type 2 diabetes mellitus without complications
CPT/HCPCS: 36415; 80053; 80061; 82043; 82306; 82570; 82728; 83036; 83540; 83550; 85025

== ENCOUNTER → 2020-11-03 09:24 | Outpatient (CLI) | payer OTHER, SELFPAY ==
[2020-11-03 10:24] LABS: Absolute Lymphocyte Count 2.45 X10^3/uL (0.83-4.51); Absolute Neutrophil Count 4.6 X10^3/uL (2.0-7.7); Basophil# 0.06 X10^3/uL; Basophil% 0.8 % (0-1); Eosinophils% 1.3 % (0-5); Hematocrit 38.9 % (37-47); Hemoglobin 12.6 g/dL (12.0-15.0); Lymphocyte # 2.45 X10^3/ul (0.83-4.51); Lymphocyte % 31.1 % (19-41); Mean Corp Hgb Conc 32.4 g/dL (32-36); Mean Corpuscular Hgb 28.8 pg (27.0-32.0); Mean Corpuscular Volume 88.8 fL (81-99); Mean Platelet Vol. 11.1 fl (6.2-12.0); Monocyte# 0.59 X10^3/uL; Monocyte% 7.5 % (0-10); NRBC Flagged by Analyzer 0 % (0-5); Neutrophil # 4.64 X10^3/uL (2.7-7.7); Neutrophil % 58.9 % (47-70); Platelet Count 298 K/mm3 (150-450); RBC Distribution Width CV 13.7 % (11.6-14.6); RBC Distribution Width SD 44.5 fl (35.1-43.9); Red Blood Count 4.38 M/mm3 (4.2-5.4); White Blood Count 7.9 K/mm3 (4.4-11.0)
[2020-11-03 10:52] LABS: Hemoglobin A1c 6.9 % (3.8-5.6)
[2020-11-03 11:15] LABS: Cholesterol 135 mg/dL (200); High Density Lipoprotein 53 mg/dL; Iron 69 ug/dL (50-170); Triglycerides 128 mg/dL; Very Low Density Lipoprotein 26 mg/dL (5-40)
== END ==
PROVIDERS: PCP Family Medicine; Referring Provider Family Medicine; Visit Provider Family Medicine
DX: E11.69 Type 2 diabetes mellitus with other specified complication (principal)
CPT/HCPCS: 36415; 80061; 83036; 83540; 85025

== ENCOUNTER → 2020-12-11 09:48 | Outpatient (CLI) | payer OTHER, SELFPAY ==
--- NOTE | 2020-12-11 09:51 | BI_ITS ---
MAMMOGRAPHY - BILATERAL SCREENING REASON FOR EXAM: Female, 65 years old. Routine annual screening examination. PERTINENT HISTORY: Non-contributory. TECHNIQUE: Digital bilateral breast mona (3D mammographic acquisition) in the CC and MLO projections. 2-D mediolateral oblique (MLO) and craniocaudad (CC) views of both breasts were obtained. CAD: Full Field Digital Mammography with Computer Added Detection was performed. COMPARISON: Comparison is made with prior study dated 12/09/2019. FINDINGS: Breast Composition: The breasts are almost entirely fatty. There are no dominant masses or suspicious calcifications. Stable benign-appearing bilateral axillary lymph nodes. No other significant abnormalities are identified. There has been no significant change since the prior study. BI/SCRN MAMM (CAD)W/MONA BILAT IMPRESSION: Stable bilateral screening mammogram. Yearly follow-up mammogram recommended. (A) ASSESSMENT CATEGORY: BIRADS Category 2: Benign. A letter regarding these results will be sent to the patient by the facility within 30 days. Approximately 10% of breast cancers are not detected by mammography. A normal mammogram should not delay biopsy of a clinically suspicious abnormality. [id number] Electronically Signed: Guero Whelan MD at 12:08 EDT , Service support ,
== END ==
PROVIDERS: PCP Family Medicine; Referring Provider Family Medicine; Visit Provider Family Medicine
DX: Z12.31 Encounter for screening mammogram for malignant neoplasm of breast (principal)
CPT/HCPCS: 77063; 77067

== ENCOUNTER → 2021-02-04 09:01 | Outpatient (CLI) | payer OTHER, SELFPAY ==
[2021-02-04 10:19] LABS: Absolute Lymphocyte Count 2.81 X10^3/uL (0.83-4.51); Absolute Neutrophil Count 5.6 X10^3/uL (2.0-7.7); Basophil# 0.07 X10^3/uL; Basophil% 0.7 % (0-1); Eosinophil# 0.16 X10^3/uL; Eosinophils% 1.7 % (0-5); Hematocrit 40.6 % (37-47); Hemoglobin 13.1 g/dL (12.0-15.0); Lymphocyte # 2.81 X10^3/ul (0.83-4.51); Mean Corp Hgb Conc 32.3 g/dL (32-36); Mean Corpuscular Hgb 28.9 pg (27.0-32.0); Mean Corpuscular Volume 89.6 fL (81-99); Mean Platelet Vol. 11.6 fl (6.2-12.0); Monocyte# 0.69 X10^3/uL; Monocyte% 7.4 % (0-10); NRBC Flagged by Analyzer 0 % (0-5); Neutrophil # 5.62 X10^3/uL (2.7-7.7); Neutrophil % 59.9 % (47-70); Platelet Count 279 K/mm3 (150-450); RBC Distribution Width CV 13.3 % (11.6-14.6); RBC Distribution Width SD 43.8 fl (35.1-43.9); Red Blood Count 4.53 M/mm3 (4.2-5.4); White Blood Count 9.4 K/mm3 (4.4-11.0)
[2021-02-04 10:47] LABS: AST(SGOT) 14 U/L (15-37); Alanine Aminotransfer ALT/SGPT 27 U/L (13-56); Alkaline Phosphatase 37 U/L (45-117); Anion Gap 6 (5-15); BUN 19 mg/dL (7-18); BUN/Creat Ratio 19.5 RATIO (10-20); Calcium,Total 9.3 mg/dL (8.5-10.1); Chloride 102 mmol/L (98-107); Cholesterol 145 mg/dL (200); Creatinine, Serum 0.97 mg/dL (0.55-1.02); EST Glomerular Filtration Rate 61 mL/min (>60); Est Glom Filt Rate - Afr Amer 74 mL/min (>60); Glucose 143 mg/dL (74-106); High Density Lipoprotein 53 mg/dL; Iron 56 ug/dL (50-170); Potassium 4.1 mmol/L (3.5-5.1); Sodium Level 138 mmol/L (136-145); Thyroid Stim Hormone (TSH) 2.14 uIU/mL (0.358-3.74); Triglycerides 164 mg/dL; Very Low Density Lipoprotein 33 mg/dL (5-40)
[2021-02-04 10:52] LABS: Hemoglobin A1c 6.8 % (3.8-5.6)
[2021-02-04 10:57] LABS: Vitamin D,25 Hydroxy 80.2 ng/mL
== END ==
PROVIDERS: PCP Family Medicine; Referring Provider Family Medicine; Visit Provider Family Medicine
DX: E11.69 Type 2 diabetes mellitus with other specified complication (principal); E55.9 Vitamin D deficiency, unspecified; E61.1 Iron deficiency
CPT/HCPCS: 36415; 80053; 80061; 82306; 83036; 83540; 84443; 85025

== ENCOUNTER → 2021-05-03 09:41 | Outpatient (CLI) | payer OTHER, SELFPAY ==
[2021-05-03 12:39] LABS: Absolute Lymphocyte Count 3.05 X10^3/uL (0.83-4.51); Absolute Neutrophil Count 7.2 X10^3/uL (2.0-7.7); Basophil# 0.08 X10^3/uL; Basophil% 0.7 % (0-1); Eosinophil# 0.17 X10^3/uL; Eosinophils% 1.5 % (0-5); Hematocrit 39.2 % (37-47); Hemoglobin 12.5 g/dL (12.0-15.0); Lymphocyte # 3.05 X10^3/ul (0.83-4.51); Lymphocyte % 27.2 % (19-41); Mean Corp Hgb Conc 31.9 g/dL (32-36); Mean Corpuscular Volume 87.9 fL (81-99); Mean Platelet Vol. 10.9 fl (6.2-12.0); Monocyte% 6.2 % (0-10); NRBC Flagged by Analyzer 0 % (0-5); Neutrophil # 7.17 X10^3/uL (2.7-7.7); Platelet Count 324 K/mm3 (150-450); RBC Distribution Width CV 14.2 % (11.6-14.6); Red Blood Count 4.46 M/mm3 (4.2-5.4); White Blood Count 11.2 K/mm3 (4.4-11.0)
[2021-05-03 12:54] LABS: Vitamin D,25 Hydroxy 88.8 ng/mL
[2021-05-03 13:01] LABS: Hemoglobin A1c 6.8 % (3.8-5.6)
[2021-05-03 13:03] LABS: ALB/GLOB Ratio 1.1 RATIO (0.9-2.4); AST(SGOT) 15 U/L (15-37); Alanine Aminotransfer ALT/SGPT 26 U/L (13-56); Alkaline Phosphatase 36 U/L (45-117); Anion Gap 7 (5-15); BUN 13 mg/dL (7-18); BUN/Creat Ratio 15.3 RATIO (10-20); Calcium,Total 9.7 mg/dL (8.5-10.1); Chloride 103 mmol/L (98-107); Cholesterol 104 mg/dL (200); Creatinine, Serum 0.85 mg/dL (0.55-1.02); EST Glomerular Filtration Rate 71 mL/min (>60); Est Glom Filt Rate - Afr Amer 86 mL/min (>60); Globulin 3.8 g/dL (2.2-4.2); Glucose 128 mg/dL (74-106); High Density Lipoprotein 46 mg/dL; Potassium 4.4 mmol/L (3.5-5.1); Protein, Total 7.8 g/dL (6.4-8.2); Sodium Level 137 mmol/L (136-145); Triglycerides 89 mg/dL; Very Low Density Lipoprotein 18 mg/dL (5-40)
[2021-05-03 13:11] LABS: Microalbumin,Random Urine 28.3 mg/L (NO RANGE EST.); Microalbumin:Creatinine Ratio 10.8 mg/g CRE (<30 mg/g CRE)
== END ==
PROVIDERS: PCP Family Medicine; Visit Provider Family Medicine
DX: E11.9 Type 2 diabetes mellitus without complications (principal); E55.9 Vitamin D deficiency, unspecified
CPT/HCPCS: 36415; 80053; 80061; 82043; 82306; 82570; 83036; 85025

== ENCOUNTER 2021-05-27 19:51 | Outpatient (CLI) | payer OTHER, SELFPAY | END 2021-05-27 23:59 | disposition short-term general hospital (02) | PROVIDERS: PCP Family Medicine; Visit Provider Internal Medicine Pulmonary Disease | DX: G47.10 Hypersomnia, unspecified (principal) | CPT/HCPCS: 95810 ==

== ENCOUNTER 2021-07-22 20:38 | Outpatient (CLI) | payer OTHER, SELFPAY | END 2021-07-22 23:59 | disposition home or self-care (01) | PROVIDERS: PCP Family Medicine; Visit Provider Internal Medicine Pulmonary Disease | DX: G47.33 Obstructive sleep apnea (adult) (pediatric) (principal) | CPT/HCPCS: 95811 ==

== ENCOUNTER 2021-08-27 10:37 | Outpatient (CLI) | payer OTHER, SELFPAY ==
[2021-08-27 12:17] LABS: Absolute Lymphocyte Count 2.66 X10^3/uL (0.83-4.51); Absolute Neutrophil Count 5.1 X10^3/uL (2.0-7.7); Basophil# 0.06 X10^3/uL; Basophil% 0.7 % (0-1); Eosinophil# 0.11 X10^3/uL; Eosinophils% 1.3 % (0-5); Hematocrit 38.3 % (37-47); Hemoglobin 12.3 g/dL (12.0-15.0); Lymphocyte # 2.66 X10^3/ul (0.83-4.51); Lymphocyte % 30.7 % (19-41); Mean Corp Hgb Conc 32.1 g/dL (32-36); Mean Corpuscular Hgb 27.5 pg (27.0-32.0); Mean Corpuscular Volume 85.7 fL (81-99); Mean Platelet Vol. 10.9 fl (6.2-12.0); Monocyte# 0.64 X10^3/uL; Monocyte% 7.4 % (0-10); NRBC Flagged by Analyzer 0 % (0-5); Neutrophil # 5.14 X10^3/uL (2.7-7.7); Neutrophil % 59.3 % (47-70); Platelet Count 344 K/mm3 (150-450); RBC Distribution Width CV 13.8 % (11.6-14.6); RBC Distribution Width SD 43.3 fl (35.1-43.9); Red Blood Count 4.47 M/mm3 (4.2-5.4); White Blood Count 8.7 K/mm3 (4.4-11.0)
[2021-08-27 12:41] LABS: Microalbumin,Random Urine 11.7 mg/L (NO RANGE EST.); Microalbumin:Creatinine Ratio 21.4 mg/g CRE (<30 mg/g CRE)
[2021-08-27 12:49] LABS: ALB/GLOB Ratio 1.1 RATIO (0.9-2.4); AST(SGOT) 16 U/L (15-37); Alanine Aminotransfer ALT/SGPT 26 U/L (13-56); Albumin, Serum 4.1 g/dL (3.2-5.0); Alkaline Phosphatase 39 U/L (45-117); Anion Gap 5 (5-15); BUN 20 mg/dL (7-18); BUN/Creat Ratio 21.1 RATIO (10-20); Calcium,Total 9.1 mg/dL (8.5-10.1); Chloride 104 mmol/L (98-107); Cholesterol 176 mg/dL (200); Creatinine, Serum 0.95 mg/dL (0.55-1.02); EST Glomerular Filtration Rate 63 mL/min (>60); Est Glom Filt Rate - Afr Amer 77 mL/min (>60); Globulin 3.8 g/dL (2.2-4.2); Glucose 139 mg/dL (74-106); High Density Lipoprotein 63 mg/dL; Potassium 4.3 mmol/L (3.5-5.1); Protein, Total 7.9 g/dL (6.4-8.2); Sodium Level 136 mmol/L (136-145); Triglycerides 127 mg/dL; Very Low Density Lipoprotein 25 mg/dL (5-40)
[2021-08-27 12:56] LABS: Hemoglobin A1c 7.4 % (3.8-5.6)
[2021-08-27 13:11] LABS: Vitamin D,25 Hydroxy 65.8 ng/mL
== END 2021-08-27 23:59 | disposition home or self-care (01) ==
LOC: MFPLAB 10:39
PROVIDERS: PCP Family Medicine; Referring Provider Family Medicine; Visit Provider Family Medicine
DX: E11.9 Type 2 diabetes mellitus without complications (principal); E55.9 Vitamin D deficiency, unspecified
CPT/HCPCS: 36415; 80053; 80061; 82043; 82306; 82570; 83036; 85025

== ENCOUNTER → 2021-09-09 | Outpatient (CLI) | payer OTHER, SELFPAY ==
--- NOTE | 2021-09-09 12:19 | US_ITS ---
INDICATION: MULTIPLE THYROID NODULES EXAMINATION: Ultrasound US Thyroid (eg thyroid, parathyroid, parotid) TECHNIQUE: Sesay scale and color doppler imaging was performed of the thyroid gland. COMPARISON: None. FINDINGS: RIGHT THYROID LOBE: The right lobe of the thyroid gland is prominent in size demonstrates homogeneous echogenicity is unremarkable vascularity, The right lobe of the thyroid gland measures 4.7 x 1.6 x 1.3 cm 2 nodules are visualized in the right lobe of the thyroid gland. #1- Location: Upper pole Size: 0.6 x 0.5 x 0.4 cm Composition: 2 Echogenicity: 2 Shape: 0 Margins: 0 Echogenic Foci: 0 Total points 4, TIRADS level TR4 #2- Location: Midpole Size: 1.3 x 1.0 x 0.8 cm Composition: 2 Echogenicity: 1 Shape: 0 Margins: 0 Echogenic Foci: 0 Total points 3, TIRADS level TR3 LEFT THYROID LOBE: The left lobe of the thyroid gland is unremarkable in size demonstrating homogenous echogenicity and unremarkable vascularity. The left lobe of the thyroid gland measures 4.7 x 1.6 x 1.1 cm. 3 nodules are visualized within the left lobe. #3- Location: Upper pole Size: 0.7 x 0.6 x 0.5 cm Composition: 2 Echogenicity: 1 Shape: 0 Margins: 0 Echogenic Foci: 0 Total points 3, TIRADS level TR3 #4- Location: Mid pole this nodule is visualized along the posterior aspect of the midpole dose could also represent a parathyroid gland Size: 0.6 x 0.6 x 0.6 cm Composition: 2 Echogenicity: 1 Shape: 0 Margins: 0 Echogenic Foci: 0 Total points 3, TIRADS level TR3 #5- Location: Lower pole Size: 0.6 x 0.5 x 0.4 cm Composition: 2 Echogenicity: 2 Shape: 0 Margins: 0 Echogenic Foci: 0 Total points 4, TIRADS level TR4 ISTHMUS: The isthmus demonstrates homogenous echogenicity and measures 0.2 cm in AP diameter. No evidence of nodules within the isthmus. IMPRESSION: Unremarkable size and echogenicity of the thyroid gland. 0.6 cm TR 4 nodule visualized in the upper pole of the right lobe. 1.3 cm TR 3 nodule visualized in the midpole of the right lobe. 0.7 cm TR 3 nodule visualized in the upper pole of the left lobe. 0.6 cm TR 3 nodule visualized in the midpole, this could represent a parathyroid gland. 0.6 cm TR 4 nodule visualized in the lower pole of the left lobe. TI-RADS follow up recommendations: TR1: Benign (0pts) No FNA biopsy. TR2: Not suspicious (2 pts) No FNA biopsy. TR3: Mildly suspicious (3 pts) FNA biopsy if nodule at least 2.5cm; follow if at least 1.5cm. TR4: Moderately suspicious (4-6 pts) FNA biopsy if nodule at least 1.5cm; follow if at least 1 cm. TR5: Highly suspicious (at least 7 pts) FNA if nodule at least 1cm; follow if at least 0.5cm. . Homogeneous echotexture with normal vascularity. [No thyroid nodules are present. LEFT THYROID LOBE: . Homogeneous echotexture with normal vascularity. [No thyroid nodules are present. ISTHMUS: . No thyroid nodules are present. US/Thyroid IMPRESSION: Negative thyroid ultrasound examination. Electronically Signed: Samson Navarro MD at 7:49 EDT ,
== END | disposition home or self-care (01) ==
PROVIDERS: PCP Family Medicine; Visit Provider Family Medicine
DX: E04.2 Nontoxic multinodular goiter (principal)
CPT/HCPCS: 76536

== ENCOUNTER → 2021-11-30 | Outpatient (CLI) | payer OTHER, SELFPAY ==
[2021-11-30 12:46] LABS: Microalbumin,Random Urine 15.9 mg/L (NO RANGE EST.); Microalbumin:Creatinine Ratio 22.8 mg/g CRE (<30 mg/g CRE)
[2021-11-30 13:17] LABS: ALB/GLOB Ratio 1.1 RATIO (0.9-2.4); AST(SGOT) 16 U/L (15-37); Alanine Aminotransfer ALT/SGPT 25 U/L (13-56); Albumin, Serum 4.2 g/dL (3.2-5.0); Alkaline Phosphatase 39 U/L (45-117); Anion Gap 9 (5-15); BUN 21 mg/dL (7-18); BUN/Creat Ratio 22.7 RATIO (10-20); Calcium,Total 9.7 mg/dL (8.5-10.1); Chloride 101 mmol/L (98-107); Cholesterol 149 mg/dL (200); Creatinine, Serum 0.92 mg/dL (0.55-1.02); EST Glomerular Filtration Rate 65 mL/min (>60); Est Glom Filt Rate - Afr Amer 79 mL/min (>60); Globulin 3.8 g/dL (2.2-4.2); Glucose 128 mg/dL (74-106); High Density Lipoprotein 57 mg/dL; Potassium 4.1 mmol/L (3.5-5.1); Sodium Level 135 mmol/L (136-145); Triglycerides 111 mg/dL; Very Low Density Lipoprotein 22 mg/dL (5-40)
[2021-11-30 14:36] LABS: Vitamin D,25 Hydroxy 64.1 ng/mL
[2021-11-30 21:16] LABS: Hemoglobin A1c 8.1 % (3.8-5.6)
== END | disposition home or self-care (01) ==
LOC: MFPLAB 10:07
PROVIDERS: PCP Family Medicine; Referring Provider Family Medicine; Visit Provider Family Medicine
DX: E11.69 Type 2 diabetes mellitus with other specified complication (principal); E55.9 Vitamin D deficiency, unspecified
CPT/HCPCS: 36415; 80053; 80061; 82043; 82306; 82570; 83036

== ENCOUNTER → 2022-01-19 | Outpatient (CLI) | payer OTHER, SELFPAY ==
--- NOTE | 2022-01-19 09:54 | BI_ITS ---
MAMMOGRAPHY - BILATERAL SCREENING REASON FOR EXAM: Female, 66 years old. Routine annual screening examination. PERTINENT HISTORY: Non-contributory. TECHNIQUE: Digital bilateral breast mona (3D mammographic acquisition) in the CC and MLO projections. 2-D mediolateral oblique (MLO) and craniocaudad (CC) views of both breasts were obtained. CAD: Full Field Digital Mammography with Computer Added Detection was performed. COMPARISON: Comparison is made with prior study dated 12/11/2020 and 12/09/2019. FINDINGS: Breast Composition: The breasts are almost entirely fatty. There are no dominant masses or suspicious calcifications. Stable small benign-appearing bilateral axillary lymph nodes. No other significant abnormalities are identified. There has been no significant change since the prior study. BI/SCRN MAMM (CAD)W/MONA BILAT IMPRESSION: Stable bilateral screening mammogram. Yearly follow-up mammogram recommended. (A) ASSESSMENT CATEGORY: BIRADS Category 2: Benign. A letter regarding these results will be sent to the patient by the facility within 30 days. Approximately 10% of breast cancers are not detected by mammography. A normal mammogram should not delay biopsy of a clinically suspicious abnormality. [id number] Electronically Signed: Guero Whelan MD at 10:53 EDT ,
== END | disposition home or self-care (01) ==
LOC: OPBI 09:52
PROVIDERS: PCP Family Medicine; Visit Provider Nurse Practitioner Family
DX: Z12.31 Encounter for screening mammogram for malignant neoplasm of breast (principal)
CPT/HCPCS: 77063; 77067

== ENCOUNTER → 2022-03-09 | Outpatient (CLI) | payer OTHER, SELFPAY ==
[2022-03-09 12:04] LABS: Absolute Lymphocyte Count 2.29 X10^3/uL (0.83-4.51); Absolute Neutrophil Count 5.7 X10^3/uL (2.0-7.7); Basophil# 0.07 X10^3/uL; Basophil% 0.8 % (0-1); Eosinophil# 0.17 X10^3/uL; Eosinophils% 1.9 % (0-5); Hematocrit 36.1 % (37-47); Hemoglobin 11.5 g/dL (12.0-15.0); Lymphocyte # 2.29 X10^3/ul (0.83-4.51); Lymphocyte % 25.6 % (19-41); Mean Corp Hgb Conc 31.9 g/dL (32-36); Mean Corpuscular Hgb 26.9 pg (27.0-32.0); Mean Corpuscular Volume 84.5 fL (81-99); Mean Platelet Vol. 10.7 fl (6.2-12.0); Monocyte# 0.72 X10^3/uL; NRBC Flagged by Analyzer 0 % (0-5); Neutrophil # 5.65 X10^3/uL (2.7-7.7); Neutrophil % 63.1 % (47-70); Platelet Count 399 K/mm3 (150-450); RBC Distribution Width CV 15.5 % (11.6-14.6); Red Blood Count 4.27 M/mm3 (4.2-5.4)
[2022-03-09 12:35] LABS: AST(SGOT) 16 U/L (15-37); Alanine Aminotransfer ALT/SGPT 22 U/L (13-56); Albumin, Serum 3.8 g/dL (3.2-5.0); Alkaline Phosphatase 42 U/L (45-117); Anion Gap 10 (5-15); BUN 17 mg/dL (7-18); BUN/Creat Ratio 16.5 RATIO (10-20); Calcium,Total 9.4 mg/dL (8.5-10.1); Chloride 103 mmol/L (98-107); Cholesterol 99 mg/dL (200); Creatinine, Serum 1.03 mg/dL (0.55-1.02); EST Glomerular Filtration Rate 57 mL/min (>60); Est Glom Filt Rate - Afr Amer 69 mL/min (>60); Globulin 3.9 g/dL (2.2-4.2); Glucose 123 mg/dL (74-106); High Density Lipoprotein 39 mg/dL; Potassium 4.3 mmol/L (3.5-5.1); Protein, Total 7.7 g/dL (6.4-8.2); Sodium Level 138 mmol/L (136-145); Triglycerides 158 mg/dL; Very Low Density Lipoprotein 32 mg/dL (5-40)
[2022-03-09 13:32] LABS: Hemoglobin A1c 7.4 % (3.8-5.6)
[2022-03-10 15:18] LABS: Ferritin 17 ng/mL (8-252); Iron 33 ug/dL (50-170); Iron Binding Capacity,Total 323 ug/dL (250-450); PERCENT IRON SATURATION 10.2 % (15.0-55.0)
[2022-03-10 15:19] LABS: Vitamin B12 202 pg/mL (211-911)
== END | disposition home or self-care (01) ==
LOC: MFPLAB 10:46
PROVIDERS: PCP Family Medicine; Referring Provider Family Medicine; Visit Provider Family Medicine
DX: E11.69 Type 2 diabetes mellitus with other specified complication (principal); E55.9 Vitamin D deficiency, unspecified
CPT/HCPCS: 36415; 80053; 80061; 82306; 82607; 82728; 83036; 83540; 83550; 85025

== ENCOUNTER → 2022-03-15 | Outpatient (CLI) | payer OTHER, SELFPAY ==
[2022-03-15 12:26] LABS: Anion Gap 6 (5-15); BUN 16 mg/dL (7-18); BUN/Creat Ratio 15.4 RATIO (10-20); Calcium,Total 9.8 mg/dL (8.5-10.1); Chloride 104 mmol/L (98-107); Creatinine, Serum 1.04 mg/dL (0.55-1.02); EST Glomerular Filtration Rate 57 mL/min (>60); Est Glom Filt Rate - Afr Amer 69 mL/min (>60); Glucose 179 mg/dL (74-106); Potassium 4.4 mmol/L (3.5-5.1); Sodium Level 136 mmol/L (136-145)
== END | disposition home or self-care (01) ==
LOC: MFPLAB 09:53
PROVIDERS: PCP Family Medicine; Referring Provider Family Medicine; Visit Provider Family Medicine
DX: D64.9 Anemia, unspecified (principal)
CPT/HCPCS: 36415; 80048

== ENCOUNTER → 2022-05-17 | Outpatient (CLI) | payer OTHER, SELFPAY ==
[2022-05-17 15:07] LABS: Absolute Lymphocyte Count 2.47 X10^3/uL (0.83-4.51); Absolute Neutrophil Count 4.7 X10^3/uL (2.0-7.7); Basophil# 0.07 X10^3/uL; Basophil% 0.9 % (0-1); Eosinophil# 0.18 X10^3/uL; Eosinophils% 2.2 % (0-5); Hematocrit 35.3 % (37-47); Hemoglobin 10.9 g/dL (12.0-15.0); Lymphocyte # 2.47 X10^3/ul (0.83-4.51); Lymphocyte % 30.1 % (19-41); Mean Corp Hgb Conc 30.9 g/dL (32-36); Mean Corpuscular Hgb 25.3 pg (27.0-32.0); Mean Corpuscular Volume 81.9 fL (81-99); Mean Platelet Vol. 11.3 fl (6.2-12.0); Monocyte# 0.77 X10^3/uL; Monocyte% 9.4 % (0-10); NRBC Flagged by Analyzer 0 % (0-5); Neutrophil # 4.66 X10^3/uL (2.7-7.7); Neutrophil % 56.7 % (47-70); Platelet Count 329 K/mm3 (150-450); RBC Distribution Width CV 15.9 % (11.6-14.6); RBC Distribution Width SD 47.2 fl (35.1-43.9); Red Blood Count 4.31 M/mm3 (4.2-5.4); White Blood Count 8.2 K/mm3 (4.4-11.0)
[2022-05-17 15:37] LABS: Anion Gap 8 (5-15); BUN 13 mg/dL (7-18); Calcium,Total 9.7 mg/dL (8.5-10.1); Chloride 101 mmol/L (98-107); EST Glomerular Filtration Rate 59 mL/min (>60); Est Glom Filt Rate - Afr Amer 72 mL/min (>60); Glucose 140 mg/dL (74-106); Potassium 4.4 mmol/L (3.5-5.1); Sodium Level 137 mmol/L (136-145)
[2022-05-19 14:09] LABS: QNTFERON TB Mitogen Value > 10.00 IU/mL (.); QNTFERON TB Nil Value 0.03 IU/mL (.); QNTFERON TB1+ Ag Value 0.02 IU/mL (.); QNTFERON TB2+ Ag Value 0.04 IU/mL (.)
[2022-05-19 21:04] LABS: Hepatitis B Core Ab Total Negative (Negative); QNTIFERON TB Positive Criteria Negative (Negative)
== END | disposition home or self-care (01) ==
LOC: MTLAB 14:00
PROVIDERS: PCP Family Medicine; Referring Provider Physician Assistant Medical; Visit Provider Physician Assistant Medical
DX: L40.0 Psoriasis vulgaris (principal)
CPT/HCPCS: 36415; 80048; 85025; 86480; 86704

== ENCOUNTER → 2022-06-20 | Outpatient (CLI) | payer OTHER, SELFPAY ==
[2022-06-20 15:37] LABS: Absolute Neutrophil Count 4.7 X10^3/uL (2.0-7.7); Basophil# 0.06 X10^3/uL; Basophil% 0.8 % (0-1); Eosinophil# 0.15 X10^3/uL; Eosinophils% 1.9 % (0-5); Hematocrit 35.7 % (37-47); Hemoglobin 10.9 g/dL (12.0-15.0); Lymphocyte % 28.2 % (19-41); Mean Corp Hgb Conc 30.5 g/dL (32-36); Mean Corpuscular Hgb 25.1 pg (27.0-32.0); Mean Corpuscular Volume 82.1 fL (81-99); Mean Platelet Vol. 11.8 fl (6.2-12.0); Monocyte# 0.64 X10^3/uL; Monocyte% 8.2 % (0-10); NRBC Flagged by Analyzer 0 % (0-5); Neutrophil # 4.73 X10^3/uL (2.7-7.7); Neutrophil % 60.5 % (47-70); Platelet Count 314 K/mm3 (150-450); RBC Distribution Width SD 48.1 fl (35.1-43.9); Red Blood Count 4.35 M/mm3 (4.2-5.4); White Blood Count 7.8 K/mm3 (4.4-11.0)
[2022-06-20 15:50] LABS: Anion Gap 12 (5-15); BUN 14 mg/dL (7-18); BUN/Creat Ratio 12.4 RATIO (10-20); Calcium,Total 9.3 mg/dL (8.5-10.1); Chloride 102 mmol/L (98-107); Creatinine, Serum 1.13 mg/dL (0.55-1.02); EST Glomerular Filtration Rate 51 mL/min (>60); Est Glom Filt Rate - Afr Amer 62 mL/min (>60); Glucose 256 mg/dL (74-106); Potassium 4.4 mmol/L (3.5-5.1); Sodium Level 138 mmol/L (136-145)
[2022-06-22 11:08] LABS: QNTFERON TB Mitogen Value > 10.00 IU/mL (.); QNTFERON TB Nil Value 0.03 IU/mL (.); QNTFERON TB1+ Ag Value 0.04 IU/mL (.); QNTFERON TB2+ Ag Value 0.03 IU/mL (.)
[2022-06-22 16:45] LABS: Hepatitis B Core Ab Total Negative (Negative); QNTIFERON TB Positive Criteria Negative (Negative)
== END | disposition home or self-care (01) ==
PROVIDERS: PCP Family Medicine; Referring Provider Physician Assistant; Visit Provider Physician Assistant
DX: L40.0 Psoriasis vulgaris (principal); L40.59 Other psoriatic arthropathy; I89.0 Lymphedema, not elsewhere classified; Z79.899 Other long term (current) drug therapy
CPT/HCPCS: 36415; 80048; 85025; 86480; 86704

== ENCOUNTER → 2022-07-28 | Outpatient (CLI) | payer MEDICARE, OTHER, SELFPAY ==
[2022-07-28 09:57] LABS: Absolute Lymphocyte Count 2.07 X10^3/uL (0.83-4.51); Absolute Neutrophil Count 3.5 X10^3/uL (2.0-7.7); Basophil# 0.07 X10^3/uL; Basophil% 1.1 % (0-1); Eosinophils% 1.6 % (0-5); Hematocrit 36.5 % (37-47); Hemoglobin 11.4 g/dL (12.0-15.0); Lymphocyte # 2.07 X10^3/ul (0.83-4.51); Lymphocyte % 32.2 % (19-41); Mean Corp Hgb Conc 31.2 g/dL (32-36); Mean Corpuscular Hgb 25.3 pg (27.0-32.0); Mean Corpuscular Volume 80.9 fL (81-99); Mean Platelet Vol. 11.1 fl (6.2-12.0); Monocyte% 9.3 % (0-10); NRBC Flagged by Analyzer 0 % (0-5); Neutrophil # 3.54 X10^3/uL (2.7-7.7); Platelet Count 283 K/mm3 (150-450); RBC Distribution Width CV 16.4 % (11.6-14.6); RBC Distribution Width SD 47.8 fl (35.1-43.9); Red Blood Count 4.51 M/mm3 (4.2-5.4); White Blood Count 6.4 K/mm3 (4.4-11.0)
[2022-07-28 10:31] LABS: Vitamin D,25 Hydroxy 55.9 ng/mL
[2022-07-28 10:46] LABS: ALB/GLOB Ratio 1.1 RATIO (0.9-2.4); AST(SGOT) 20 U/L (15-37); Alanine Aminotransfer ALT/SGPT 33 U/L (13-56); Albumin, Serum 3.9 g/dL (3.2-5.0); Alkaline Phosphatase 42 U/L (45-117); Anion Gap 9 (5-15); BUN 17 mg/dL (7-18); BUN/Creat Ratio 16.7 RATIO (10-20); Calcium,Total 9.4 mg/dL (8.5-10.1); Chloride 99 mmol/L (98-107); Cholesterol 129 mg/dL (200); Creatinine, Serum 1.02 mg/dL (0.55-1.02); EST Glomerular Filtration Rate 58 mL/min (>60); Est Glom Filt Rate - Afr Amer 70 mL/min (>60); Globulin 3.6 g/dL (2.2-4.2); Glucose 265 mg/dL (74-106); High Density Lipoprotein 49 mg/dL; Potassium 4.2 mmol/L (3.5-5.1); Protein, Total 7.5 g/dL (6.4-8.2); Sodium Level 134 mmol/L (136-145); Triglycerides 128 mg/dL; Very Low Density Lipoprotein 26 mg/dL (5-40)
[2022-07-28 10:48] LABS: Microalbumin,Random Urine 50.5 mg/L (NO RANGE EST.); Microalbumin:Creatinine Ratio 45.5 mg/g CRE (<30 mg/g CRE)
== END | disposition home or self-care (01) ==
LOC: MTLAB 09:06
PROVIDERS: PCP Family Medicine; Referring Provider Family Medicine; Visit Provider Family Medicine
DX: E11.69 Type 2 diabetes mellitus with other specified complication (principal); E55.9 Vitamin D deficiency, unspecified
CPT/HCPCS: 36415; 80053; 80061; 82043; 82306; 82570; 83036; 85025

== ENCOUNTER → 2022-09-15 | Outpatient (CLI) | payer MEDICARE, OTHER, SELFPAY ==
[2022-09-15 12:53] LABS: Anion Gap 6 (5-15); BUN 19 mg/dL (7-18); BUN/Creat Ratio 19.6 RATIO (10-20); Calcium,Total 9.9 mg/dL (8.5-10.1); Chloride 104 mmol/L (98-107); Creatinine, Serum 0.97 mg/dL (0.55-1.02); EST Glomerular Filtration Rate 61 mL/min (>60); Est Glom Filt Rate - Afr Amer 74 mL/min (>60); Ferritin 12 ng/mL (8-252); Glucose 111 mg/dL (74-106); Iron 36 ug/dL (50-170); Iron Binding Capacity,Total 354 ug/dL (250-450); Sodium Level 135 mmol/L (136-145)
[2022-09-15 12:56] LABS: Vitamin B12 317 pg/mL (211-911)
== END | disposition home or self-care (01) ==
LOC: MFPLAB 09:19
PROVIDERS: PCP Family Medicine; Visit Provider Family Medicine
DX: D64.9 Anemia, unspecified (principal)
CPT/HCPCS: 36415; 80048; 82607; 82728; 83540; 83550

== ENCOUNTER → 2022-09-21 | Outpatient (CLI) | payer MEDICARE, OTHER, SELFPAY ==
[2022-09-21 12:21] LABS: Absolute Lymphocyte Count 1.99 X10^3/uL (0.83-4.51); Absolute Neutrophil Count 4.8 X10^3/uL (2.0-7.7); Basophil# 0.05 X10^3/uL; Basophil% 0.7 % (0-1); Eosinophil# 0.08 X10^3/uL; Eosinophils% 1.1 % (0-5); Hemoglobin 11.5 g/dL (12.0-15.0); Lymphocyte # 1.99 X10^3/ul (0.83-4.51); Lymphocyte % 26.4 % (19-41); Mean Corp Hgb Conc 31.1 g/dL (32-36); Mean Corpuscular Hgb 26.1 pg (27.0-32.0); Mean Corpuscular Volume 83.9 fL (81-99); Mean Platelet Vol. 10.9 fl (6.2-12.0); Monocyte# 0.56 X10^3/uL; Monocyte% 7.4 % (0-10); NRBC Flagged by Analyzer 0 % (0-5); Neutrophil # 4.82 X10^3/uL (2.7-7.7); Platelet Count 311 K/mm3 (150-450); RBC Distribution Width CV 16.2 % (11.6-14.6); RBC Distribution Width SD 49.4 fl (35.1-43.9); Red Blood Count 4.41 M/mm3 (4.2-5.4); White Blood Count 7.5 K/mm3 (4.4-11.0)
[2022-09-21 12:40] LABS: Hemoglobin A1c 7.9 % (3.8-5.6)
[2022-09-21 12:50] LABS: Vitamin B12 284 pg/mL (211-911)
[2022-09-21 13:39] LABS: ALB/GLOB Ratio 1.1 RATIO (0.9-2.4); AST(SGOT) 20 U/L (15-37); Alanine Aminotransfer ALT/SGPT 29 U/L (13-56); Albumin, Serum 4.1 g/dL (3.2-5.0); Alkaline Phosphatase 41 U/L (45-117); Anion Gap 12 (5-15); BUN 19 mg/dL (7-18); BUN/Creat Ratio 18.8 RATIO (10-20); Calcium,Total 9.6 mg/dL (8.5-10.1); Chloride 105 mmol/L (98-107); Creatinine, Serum 1.01 mg/dL (0.55-1.02); EST Glomerular Filtration Rate 58 mL/min (>60); Est Glom Filt Rate - Afr Amer 71 mL/min (>60); Ferritin 10 ng/mL (8-252); Globulin 3.6 g/dL (2.2-4.2); Glucose 103 mg/dL (74-106); Iron 32 ug/dL (50-170); Iron Binding Capacity,Total 368 ug/dL (250-450); Potassium 4.3 mmol/L (3.5-5.1); Protein, Total 7.7 g/dL (6.4-8.2); Sodium Level 139 mmol/L (136-145)
== END | disposition home or self-care (01) ==
LOC: MFPLAB 10:24
PROVIDERS: PCP Family Medicine; Visit Provider Family Medicine
DX: D64.9 Anemia, unspecified (principal); E11.59 Type 2 diabetes mellitus with other circulatory complications
CPT/HCPCS: 36415; 80053; 82607; 82728; 82746; 83036; 83540; 83550; 85025

== ENCOUNTER → 2022-12-16 | Outpatient (CLI) | payer MEDICARE, OTHER, SELFPAY ==
[2022-12-16 12:22] LABS: Color, Urine Yellow (Yellow); Glucose, Dipstick 1000 mg/dl (Normal); Ketone-Dipstick Negative (Negative); Leukocyte Esterase-Dipstick Negative /ul (Negative); Nitrite-Dipstick Negative (Negative); Occult Blood-Urine Negative /ul (Negative); Protein-Dipstick Negative (Negative); Specific Gravity, Urine 1.015 (1.002-1.030); Urine Bilirubin Dipstick Negative (Negative); Urine Clarity Clear (Clear); Urine Urobilinogen Normal (Normal)
[2022-12-16 12:24] LABS: Absolute Lymphocyte Count 2.18 X10^3/uL (0.83-4.51); Absolute Neutrophil Count 5.5 X10^3/uL (2.0-7.7); Basophil# 0.05 X10^3/uL; Basophil% 0.6 % (0-1); Eosinophil# 0.11 X10^3/uL; Eosinophils% 1.3 % (0-5); Hematocrit 40.8 % (37-47); Hemoglobin 12.7 g/dL (12.0-15.0); Lymphocyte # 2.18 X10^3/ul (0.83-4.51); Lymphocyte % 25.9 % (19-41); Mean Corp Hgb Conc 31.1 g/dL (32-36); Mean Corpuscular Hgb 27.1 pg (27.0-32.0); Mean Corpuscular Volume 87.2 fL (81-99); Mean Platelet Vol. 11.7 fl (6.2-12.0); Monocyte# 0.61 X10^3/uL; Monocyte% 7.2 % (0-10); NRBC Flagged by Analyzer 0 % (0-5); Neutrophil # 5.45 X10^3/uL (2.7-7.7); Neutrophil % 64.6 % (47-70); Platelet Count 325 K/mm3 (150-450); RBC Distribution Width SD 50.5 fl (35.1-43.9); Red Blood Count 4.68 M/mm3 (4.2-5.4); White Blood Count 8.4 K/mm3 (4.4-11.0)
[2022-12-16 12:39] LABS: Bacteria 0 SEEN /hpf (None Seen); Mucous, Urine 0 SEEN /hpf (<or=2+); Red Blood Cells-Urine 0 SEEN /hpf (0-5); White Blood Cells 0 SEEN /hpf (0-5)
[2022-12-16 12:40] LABS: Squamous Epithelial Cells - UA 0-5 SEEN /hpf (5-10)
[2022-12-16 12:45] LABS: Microalbumin:Creatinine Ratio 12.9 mg/g CRE (<30 mg/g CRE); Protein, Urine (Random) < 6.0 mg/dL (<11.9)
[2022-12-16 12:54] LABS: Vitamin B12 289 pg/mL (211-911); Vitamin D,25 Hydroxy 67.9 ng/mL
[2022-12-16 12:55] LABS: Hemoglobin A1c 6.4 % (3.8-5.6)
[2022-12-16 13:47] LABS: AST(SGOT) 20 U/L (15-37); Alanine Aminotransfer ALT/SGPT 26 U/L (13-56); Alkaline Phosphatase 41 U/L (45-117); Anion Gap 7 (5-15); BUN 20 mg/dL (7-18); BUN/Creat Ratio 22.2 RATIO (10-20); Calcium,Total 9.7 mg/dL (8.5-10.1); Chloride 103 mmol/L (98-107); Cholesterol 143 mg/dL (200); EST Glomerular Filtration Rate 67 mL/min (>60); Est Glom Filt Rate - Afr Amer 81 mL/min (>60); Ferritin 17 ng/mL (8-252); Glucose 101 mg/dL (74-106); High Density Lipoprotein 54 mg/dL; Iron 38 ug/dL (50-170); Iron Binding Capacity,Total 360 ug/dL (250-450); Phosphorus 3.9 mg/dL (2.5-4.9); Potassium 4.4 mmol/L (3.5-5.1); Sodium Level 137 mmol/L (136-145); Triglycerides 157 mg/dL; Very Low Density Lipoprotein 31 mg/dL (5-40)
== END | disposition home or self-care (01) ==
LOC: MFPLAB 10:33
PROVIDERS: PCP Family Medicine; Visit Provider Family Medicine
DX: E11.22 Type 2 diabetes mellitus with diabetic chronic kidney disease (principal); N18.9 Chronic kidney disease, unspecified; D63.1 Anemia in chronic kidney disease
CPT/HCPCS: 36415; 80053; 80061; 81001; 82043; 82306; 82570; 82607; 82728; 82746; 83036; 83540; 83550; 84100; 84156; 85025

== ENCOUNTER → 2023-03-21 | Outpatient (CLI) | payer MEDICARE, OTHER, SELFPAY ==
[2023-03-21 10:43] LABS: Hemoglobin A1c 5.6 % (3.8-5.6)
[2023-03-21 10:49] LABS: Cholesterol 137 mg/dL (200); High Density Lipoprotein 54 mg/dL; Rheumatoid Factor < 10.0 IU/mL (<15); Triglycerides 95 mg/dL; Very Low Density Lipoprotein 19 mg/dL (5-40)
[2023-03-21 11:23] LABS: Hepatitis C Antibody Non-Reactive (Nonreactive)
[2023-03-23 13:07] LABS: Anti-Nuclear Antibody Test Negative (.)
[2023-03-24 17:07] LABS: Hepatitis A IgM Antibody Negative (Negative); Hepatitis B Core Ab Total Negative (Negative); Immunoglobulin A 199 mg/dL (87-352); Immunoglobulin E 30 IU/mL (6-495); Immunoglobulin G 806 mg/dL (586-1602); Immunoglobulin M 584 mg/dL (26-217); Thyroid Peroxidase AB 10 IU/mL (0-34)
== END | disposition home or self-care (01) ==
LOC: MFPLAB 08:36
PROVIDERS: PCP Family Medicine; Visit Provider Physician Assistant
DX: L92.0 Granuloma annulare (principal); L40.59 Other psoriatic arthropathy; L40.0 Psoriasis vulgaris; Z79.899 Other long term (current) drug therapy
CPT/HCPCS: 36415; 80061; 82784; 82785; 83036; 86038; 86376; 86431; 86704; 86709; 86803

== ENCOUNTER → 2023-04-21 | Outpatient (CLI) | payer MEDICARE, OTHER, SELFPAY ==
[2023-04-21 09:04] LABS: Bacteria 0 SEEN /hpf (None Seen); Mucous, Urine 0 SEEN /hpf (<or=2+); Red Blood Cells-Urine 0 SEEN /hpf (0-5); Squamous Epithelial Cells - UA 0 SEEN /hpf (5-10); White Blood Cells 0 SEEN /hpf (0-5)
[2023-04-21 10:16] LABS: Absolute Neutrophil Count 5.9 X10^3/uL (2.0-7.7); Basophil# 0.07 X10^3/uL; Basophil% 0.8 % (0-1); Eosinophils% 1.2 % (0-5); Hematocrit 41.2 % (37-47); Hemoglobin 13.2 g/dL (12.0-15.0); Mean Corpuscular Hgb 28.2 pg (27.0-32.0); Mean Platelet Vol. 10.8 fl (6.2-12.0); Monocyte# 0.61 X10^3/uL; Monocyte% 7.1 % (0-10); NRBC Flagged by Analyzer 0 % (0-5); Neutrophil # 5.94 X10^3/uL (2.7-7.7); Neutrophil % 68.6 % (47-70); Platelet Count 300 K/mm3 (150-450); RBC Distribution Width SD 47.7 fl (35.1-43.9); Red Blood Count 4.68 M/mm3 (4.2-5.4); White Blood Count 8.7 K/mm3 (4.4-11.0)
[2023-04-21 10:17] LABS: Color, Urine Yellow (Yellow); Glucose, Dipstick 1000 mg/dl (Normal); Ketone-Dipstick Negative (Negative); Leukocyte Esterase-Dipstick Negative /ul (Negative); Nitrite-Dipstick Negative (Negative); Occult Blood-Urine Negative /ul (Negative); Protein-Dipstick Negative (Negative); Specific Gravity, Urine 1.015 (1.002-1.030); Urine Bilirubin Dipstick Negative (Negative); Urine Clarity Clear (Clear); Urine Urobilinogen Normal (Normal)
[2023-04-21 10:45] LABS: Hemoglobin A1c 5.8 % (3.8-5.6); Vitamin B12 252 pg/mL (211-911); Vitamin D,25 Hydroxy 66.6 ng/mL
[2023-04-21 10:55] LABS: Hepatitis B Surface Antibody Non-Reactive; Hepatitis B Surface Antigen Non-Reactive (Nonreactive)
[2023-04-21 11:09] LABS: Microalbumin,Random Urine 10.1 mg/L (NO RANGE EST.); Microalbumin:Creatinine Ratio 19.7 mg/g CRE (<30 mg/g CRE); Protein, Urine (Random) < 6.0 mg/dL (<11.9); Protein:Creat Ratio 100 mg/g CRE (0-200)
[2023-04-21 12:01] LABS: AST(SGOT) 17 U/L (15-37); Alanine Aminotransfer ALT/SGPT 23 U/L (13-56); Albumin, Serum 3.9 g/dL (3.2-5.0); Alkaline Phosphatase 34 U/L (45-117); Anion Gap 8 (5-15); BUN 23 mg/dL (7-18); BUN/Creat Ratio 26.4 RATIO (10-20); Chloride 102 mmol/L (98-107); Cholesterol 134 mg/dL (200); Creatinine, Serum 0.87 mg/dL (0.55-1.02); EST Glomerular Filtration Rate 69 mL/min (>60); Est Glom Filt Rate - Afr Amer 84 mL/min (>60); Ferritin 23 ng/mL (8-252); Globulin 4.1 g/dL (2.2-4.2); Glucose 109 mg/dL (74-106); High Density Lipoprotein 57 mg/dL; Iron 49 ug/dL (50-170); Iron Binding Capacity,Total 329 ug/dL (250-450); Potassium 4.1 mmol/L (3.5-5.1); Sodium Level 136 mmol/L (136-145); Triglycerides 108 mg/dL; Very Low Density Lipoprotein 22 mg/dL (5-40)
[2023-04-22 06:08] LABS: Hepatitis B Core AB IgM Negative (Negative); Hepatitis B Core Ab Total Negative (Negative)
== END | disposition home or self-care (01) ==
LOC: MFPLAB 09:01
PROVIDERS: Physician Assistant; PCP Family Medicine; Visit Provider Family Medicine
DX: L40.0 Psoriasis vulgaris (principal); E11.22 Type 2 diabetes mellitus with diabetic chronic kidney disease; E55.9 Vitamin D deficiency, unspecified; E53.8 Deficiency of other specified B group vitamins; E61.1 Iron deficiency
CPT/HCPCS: 36415; 80053; 80061; 81001; 82043; 82306; 82570; 82607; 82728; 82746; 83036; 83540; 83550; 84100; 84156; 85025; 86704; 86705; 86706; 87340

== ENCOUNTER → 2023-06-13 | Outpatient (CLI) | payer MEDICARE, OTHER, SELFPAY ==
--- NOTE | 2023-06-13 10:02 | BI_ITS ---
MAMMOGRAPHY - BILATERAL SCREENING REASON FOR EXAM: Female, 67 years old. Routine annual screening examination. PERTINENT HISTORY: Non-contributory. TECHNIQUE: Digital bilateral breast mona (3D mammographic acquisition) in the CC and MLO projections. 2-D mediolateral oblique (MLO) and craniocaudad (CC) views of both breasts were obtained. CAD: Full Field Digital Mammography with Computer Added Detection was performed. COMPARISON: Comparison is made with prior study January 19, 2022 and December 11, 2020. FINDINGS: Breast Composition: The breasts are almost entirely fatty. There are no dominant masses or suspicious calcifications. Stable small bilateral axillary lymph nodes. No other significant abnormalities are identified. There has been no significant change since the prior study. BI/SCRN MAMM (CAD)W/MONA BILAT IMPRESSION: Stable bilateral screening mammogram. Yearly follow-up mammogram recommended. (A) ASSESSMENT CATEGORY: BIRADS Category 2: Benign. A letter regarding these results will be sent to the patient by the facility within 30 days. Approximately 10% of breast cancers are not detected by mammography. A normal mammogram should not delay biopsy of a clinically suspicious abnormality. [id number] Electronically Signed: Guero Whelan MD at 11:09 EST ,
--- NOTE | 2023-06-13 10:20 | BD_ITS ---
STUDY: DUAL ENERGY X-RAY ABSORPTIOMETRY / DXA REASON FOR EXAM: Female, 67 years old. [id number] TECHNIQUE: Bone Mineral Density (BMD) measurements of lumbar spine and bilateral hips were obtained. COMPARISON: None. FINDINGS: Lumbar Spine (L1-L4): g/cm2 (0.871) / T-score (-1.6) / Z-score (0.2) Findings are suggestive of osteopenia with a moderate fracture risk. Left Femur Total: g/cm2 (0.845) / T-score (-0.8) / Z-score (0.5) Left Femoral Neck: g/cm2 (0.678) / T-score (-1.5) / Z-score (0.0) Right Femur Total: g/cm2 (0.676) / T-score (-2.2) / Z-score (-0.9) Right Femoral Neck: g/cm2 (0.698) / T-score (-1.4) / Z-score (0.2) BD/Dexa Bone Density Study IMPRESSION: The patient is considered osteopenic as outlined below according to World Stan Organization (WHO) criteria with a high fracture risk. Reference Information: The T-score is the number of standard deviations above or below the standard which is normal for young adults at their peak bone mineral density. The World Health Organization (WHO) interprets the T-scores as follows: Above -1 Normal bone density Between -1 and -2.5 Osteopenia Equal to / or below -2.5 Osteoporosis As a practical clinical guideline, osteopenia may be graded as follows: Mild -1 through -1.5 Moderate -1.6 through -2.0 Severe -2.1 through -2.4 The Z-score is the number of standard deviations above or below age-matched controls. A Z-score of less than -1.5 would be considered abnormal. References: 1. NIH Osteoporosis and Related Bone Diseases www osteo.org 2. International Society for Clinical Densitometry www iscd.org 3. National Osteoporosis Foundation www nof.org Electronically Signed: Guero Whelan MD at 16:13 EST ,
== END | disposition home or self-care (01) ==
PROVIDERS: PCP Family Medicine; Referring Provider Family Medicine; Visit Provider Family Medicine
DX: Z12.31 Encounter for screening mammogram for malignant neoplasm of breast (principal); Z78.0 Asymptomatic menopausal state
CPT/HCPCS: 77063; 77067; 77080

== ENCOUNTER → 2023-08-23 | Outpatient (CLI) | payer MEDICARE, OTHER, SELFPAY ==
[2023-08-23 08:38] LABS: Bacteria 0 SEEN /hpf (None Seen); Mucous, Urine 0 SEEN /hpf (<or=2+); Red Blood Cells-Urine 0 SEEN /hpf (0-5); White Blood Cells 0 SEEN /hpf (0-5)
[2023-08-23 10:23] LABS: Absolute Lymphocyte Count 2.13 X10^3/uL (0.83-4.51); Absolute Neutrophil Count 5.5 X10^3/uL (2.0-7.7); Basophil# 0.09 X10^3/uL; Eosinophil# 0.14 X10^3/uL; Eosinophils% 1.6 % (0-5); Hematocrit 41.9 % (37-47); Hemoglobin 13.5 g/dL (12.0-15.0); Lymphocyte # 2.13 X10^3/ul (0.83-4.51); Lymphocyte % 24.7 % (19-41); Mean Corp Hgb Conc 32.2 g/dL (32-36); Mean Corpuscular Hgb 28.7 pg (27.0-32.0); Mean Platelet Vol. 12.2 fl (6.2-12.0); Monocyte# 0.74 X10^3/uL; Monocyte% 8.6 % (0-10); NRBC Flagged by Analyzer 0 % (0-5); Neutrophil # 5.48 X10^3/uL (2.7-7.7); Neutrophil % 63.6 % (47-70); Platelet Count 231 K/mm3 (150-450); RBC Distribution Width CV 14.2 % (11.6-14.6); RBC Distribution Width SD 45.9 fl (35.1-43.9); Red Blood Count 4.71 M/mm3 (4.2-5.4); White Blood Count 8.6 K/mm3 (4.4-11.0)
[2023-08-23 10:28] LABS: Color, Urine Straw (Yellow); Glucose, Dipstick 1000 mg/dl (Normal); Ketone-Dipstick Negative (Negative); Leukocyte Esterase-Dipstick Negative /ul (Negative); Nitrite-Dipstick Negative (Negative); Occult Blood-Urine Negative /ul (Negative); Protein-Dipstick Negative (Negative); Specific Gravity, Urine 1.005 (1.002-1.030); Urine Bilirubin Dipstick Negative (Negative); Urine Clarity Clear (Clear); Urine Urobilinogen Normal (Normal)
[2023-08-23 10:36] LABS: Squamous Epithelial Cells - UA 0-5 SEEN /hpf (5-10)
[2023-08-23 10:50] LABS: Hemoglobin A1c 5.7 % (3.8-5.6)
[2023-08-23 10:52] LABS: Creatinine, Urine (random) < 13.00 mg/dL (NO RANGE EST.); Protein, Urine (Random) < 6.0 mg/dL (<11.9)
[2023-08-23 10:54] LABS: Vitamin B12 288 pg/mL (211-911); Vitamin D,25 Hydroxy 70.6 ng/mL
[2023-08-23 10:57] LABS: AST(SGOT) 21 U/L (15-37); Alanine Aminotransfer ALT/SGPT 22 U/L (13-56); Albumin, Serum 4.1 g/dL (3.2-5.0); Alkaline Phosphatase 36 U/L (45-117); Anion Gap 6 (5-15); BUN 20 mg/dL (7-18); BUN/Creat Ratio 21.5 RATIO (10-20); Chloride 102 mmol/L (98-107); Cholesterol 151 mg/dL (200); Creatinine, Serum 0.93 mg/dL (0.55-1.02); EST Glomerular Filtration Rate 64 mL/min (>60); Est Glom Filt Rate - Afr Amer 78 mL/min (>60); Ferritin 23 ng/mL (8-252); Glucose 110 mg/dL (74-106); High Density Lipoprotein 66 mg/dL; Iron 62 ug/dL (50-170); Iron Binding Capacity,Total 373 ug/dL (250-450); Potassium 4.3 mmol/L (3.5-5.1); Protein, Total 8.1 g/dL (6.4-8.2); Sodium Level 136 mmol/L (136-145); Triglycerides 101 mg/dL; Very Low Density Lipoprotein 20 mg/dL (5-40)
== END | disposition home or self-care (01) ==
LOC: MFPLAB 08:35
PROVIDERS: PCP Family Medicine; Visit Provider Family Medicine
DX: E11.69 Type 2 diabetes mellitus with other specified complication (principal); E11.22 Type 2 diabetes mellitus with diabetic chronic kidney disease; E53.8 Deficiency of other specified B group vitamins; E55.9 Vitamin D deficiency, unspecified; E61.1 Iron deficiency; N18.9 Chronic kidney disease, unspecified
CPT/HCPCS: 36415; 80053; 80061; 81001; 82306; 82570; 82607; 82728; 83036; 83540; 83550; 84156; 85025

== ENCOUNTER → 2023-12-13 | Outpatient (CLI) | payer MEDICARE, OTHER, SELFPAY ==
[2023-12-13 10:15] LABS: Absolute Lymphocyte Count 1.94 X10^3/uL (0.83-4.51); Absolute Neutrophil Count 4.2 X10^3/uL (2.0-7.7); Basophil# 0.07 X10^3/uL; Eosinophil# 0.08 X10^3/uL; Eosinophils% 1.2 % (0-5); Hematocrit 40.5 % (37-47); Hemoglobin 12.8 g/dL (12.0-15.0); Lymphocyte # 1.94 X10^3/ul (0.83-4.51); Lymphocyte % 28.5 % (19-41); Mean Corp Hgb Conc 31.6 g/dL (32-36); Mean Corpuscular Hgb 28.1 pg (27.0-32.0); Mean Corpuscular Volume 88.8 fL (81-99); Mean Platelet Vol. 10.3 fl (6.2-12.0); Monocyte# 0.48 X10^3/uL; Monocyte% 7.1 % (0-10); NRBC Flagged by Analyzer 0 % (0-5); Neutrophil % 61.8 % (47-70); Platelet Count 295 K/mm3 (150-450); RBC Distribution Width CV 13.8 % (11.6-14.6); RBC Distribution Width SD 44.7 fl (35.1-43.9); Red Blood Count 4.56 M/mm3 (4.2-5.4); White Blood Count 6.8 K/mm3 (4.4-11.0)
[2023-12-13 11:46] LABS: Hemoglobin A1c 5.3 % (3.8-5.6)
[2023-12-13 12:33] LABS: Vitamin B12 216 pg/mL (211-911)
[2023-12-13 13:10] LABS: AST(SGOT) 19 U/L (15-37); Alanine Aminotransfer ALT/SGPT 17 U/L (13-56); Albumin, Serum 3.9 g/dL (3.2-5.0); Alkaline Phosphatase 35 U/L (45-117); Anion Gap 8 (5-15); BUN 12 mg/dL (7-18); BUN/Creat Ratio 14.1 RATIO (10-20); Calcium,Total 9.6 mg/dL (8.5-10.1); Chloride 103 mmol/L (98-107); Cholesterol 133 mg/dL (200); Creatinine, Serum 0.85 mg/dL (0.55-1.02); EST Glomerular Filtration Rate 71 mL/min (>60); Est Glom Filt Rate - Afr Amer 86 mL/min (>60); Ferritin 20 ng/mL (8-252); Glucose 90 mg/dL (74-106); High Density Lipoprotein 62 mg/dL; Iron 44 ug/dL (50-170); Iron Binding Capacity,Total 356 ug/dL (250-450); Protein, Total 7.9 g/dL (6.4-8.2); Sodium Level 139 mmol/L (136-145); Triglycerides 70 mg/dL; Very Low Density Lipoprotein 14 mg/dL (5-40)
== END | disposition home or self-care (01) ==
LOC: MFPLAB 09:30
PROVIDERS: PCP Family Medicine; Visit Provider Family Medicine
DX: E61.1 Iron deficiency (principal); E11.8 Type 2 diabetes mellitus with unspecified complications; E53.8 Deficiency of other specified B group vitamins; E55.9 Vitamin D deficiency, unspecified
CPT/HCPCS: 36415; 80053; 80061; 82306; 82607; 82728; 82746; 83036; 83540; 83550; 85025

== ENCOUNTER → 2024-03-12 | Outpatient (CLI) | payer MEDICARE, OTHER, SELFPAY ==
[2024-03-12 10:25] LABS: Ferritin 28 ng/mL (8-252); Iron 52 ug/dL (50-170)
[2024-03-13 12:09] LABS: Immunoglobulin M 559 mg/dL (26-217); PROEL- A/G Ratio 1.4 (0.7-1.7); PROEL- Albumin 4.4 g/dL (2.9-4.4); PROEL- Alpha-1 Globulin 0.2 g/dL (0.0-0.4); PROEL- Alpha-2 Globulin 0.8 g/dL (0.4-1.0); PROEL- Beta Globulin 0.9 g/dL (0.7-1.3); PROEL- Gamma Globulin 1.1 g/dL (0.4-1.8); PROEL- Globulin, Total 3.1 g/dL (2.2-3.9); PROEL- TOTAL PROTEIN 7.5 g/dL (6.0-8.5); PROEL-M-Spike 0.4 g/dL (Not Observed)
[2024-03-18 01:06] LABS: Immunoglobulin A 186 mg/dL (87-352); Immunoglobulin E 41 IU/mL (6-495); Immunoglobulin G 785 mg/dL (586-1602)
== END | disposition home or self-care (01) ==
LOC: MTLAB 09:11
PROVIDERS: Physician Assistant; PCP Family Medicine; Referring Provider Internal Medicine Pulmonary Disease; Visit Provider Internal Medicine Pulmonary Disease
DX: L92.0 Granuloma annulare (principal); G25.81 Restless legs syndrome; M12.9 Arthropathy, unspecified; Z79.899 Other long term (current) drug therapy
CPT/HCPCS: 36415; 82728; 82784; 82785; 83540; 84165

== ENCOUNTER → 2024-04-30 | Outpatient (CLI) | payer MEDICARE, OTHER, SELFPAY ==
[2024-04-30 09:21] LABS: Mucous, Urine 0 SEEN /hpf (<or=2+); Red Blood Cells-Urine 0 SEEN /hpf (0-5); Squamous Epithelial Cells - UA 0 SEEN /hpf (5-10)
[2024-04-30 10:10] LABS: Absolute Lymphocyte Count 2.03 X10^3/uL (0.83-4.51); Absolute Neutrophil Count 4.4 X10^3/uL (2.0-7.7); Basophil# 0.06 X10^3/uL; Basophil% 0.8 % (0-1); Eosinophil# 0.09 X10^3/uL; Eosinophils% 1.2 % (0-5); Hematocrit 41.1 % (37-47); Hemoglobin 13.2 g/dL (12.0-15.0); Lymphocyte # 2.03 X10^3/ul (0.83-4.51); Lymphocyte % 28.1 % (19-41); Mean Corp Hgb Conc 32.1 g/dL (32-36); Mean Corpuscular Hgb 28.4 pg (27.0-32.0); Mean Corpuscular Volume 88.6 fL (81-99); Mean Platelet Vol. 10.9 fl (6.2-12.0); Monocyte# 0.61 X10^3/uL; Monocyte% 8.4 % (0-10); NRBC Flagged by Analyzer 0 % (0-5); Neutrophil # 4.38 X10^3/uL (2.7-7.7); Neutrophil % 60.8 % (47-70); Platelet Count 288 K/mm3 (150-450); RBC Distribution Width CV 14.7 % (11.6-14.6); Red Blood Count 4.64 M/mm3 (4.2-5.4); White Blood Count 7.2 K/mm3 (4.4-11.0)
[2024-04-30 10:14] LABS: Color, Urine Straw (Yellow); Glucose, Dipstick 1000 mg/dl (Normal); Ketone-Dipstick Negative (Negative); Leukocyte Esterase-Dipstick 25 /ul (Negative); Nitrite-Dipstick Negative (Negative); Occult Blood-Urine Negative /ul (Negative); Protein-Dipstick Negative (Negative); Urine Bilirubin Dipstick Negative (Negative); Urine Clarity Clear (Clear); Urine Urobilinogen Normal (Normal); Urine pH 6.5 (5.0 - 8.0)
[2024-04-30 10:30] LABS: Bacteria RARE /hpf (None Seen); White Blood Cells 0-5 SEEN /hpf (0-5)
[2024-04-30 10:38] LABS: ALB/GLOB Ratio 1.1 RATIO (0.9-2.4); AST(SGOT) 16 U/L (15-37); Alanine Aminotransfer ALT/SGPT 25 U/L (13-56); Alkaline Phosphatase 34 U/L (45-117); Anion Gap 7 (5-15); BUN 17 mg/dL (7-18); Calcium,Total 9.7 mg/dL (8.5-10.1); Chloride 106 mmol/L (98-107); Cholesterol 156 mg/dL (200); Creatinine, Serum 0.77 mg/dL (0.55-1.02); EST Glomerular Filtration Rate 79 mL/min (>60); Est Glom Filt Rate - Afr Amer 96 mL/min (>60); Ferritin 15 ng/mL (8-252); Globulin 3.6 g/dL (2.2-4.2); Glucose 110 mg/dL (74-106); High Density Lipoprotein 76 mg/dL; Iron 59 ug/dL (50-170); Iron Binding Capacity,Total 340 ug/dL (250-450); Potassium 4.2 mmol/L (3.5-5.1); Protein, Total 7.6 g/dL (6.4-8.2); Sodium Level 140 mmol/L (136-145); Triglycerides 64 mg/dL; Very Low Density Lipoprotein 13 mg/dL (5-40)
[2024-04-30 11:11] LABS: Microalbumin,Random Urine 8.7 mg/L (NO RANGE EST.)
[2024-04-30 11:50] LABS: Hemoglobin A1c 5.9 % (3.8-5.6)
[2024-04-30 12:55] LABS: Vitamin B12 431 pg/mL (211-911); Vitamin D,25 Hydroxy 52.6 ng/mL
== END | disposition home or self-care (01) ==
PROVIDERS: PCP Family Medicine; Referring Provider Family Medicine; Visit Provider Family Medicine
DX: E61.1 Iron deficiency (principal); E11.8 Type 2 diabetes mellitus with unspecified complications; E55.9 Vitamin D deficiency, unspecified; E53.8 Deficiency of other specified B group vitamins
CPT/HCPCS: 36415; 80053; 80061; 81001; 82043; 82306; 82570; 82607; 82728; 83036; 83540; 83550; 85025

== ENCOUNTER 2024-09-04 09:16 | Day surgery (SDC) | payer MEDICARE, OTHER, SELFPAY ==
[2024-09-04] VITALS (8 sets, daily range): BP systolic 111–162; BP diastolic 58–74; PULSE 50–72; RESP 14–18; TEMP 36.3–37.6; O2SAT 94–99; BMI 29.2
--- NOTE | 2024-09-04 09:18 | PCM.PRE.AN2 ---
ASA Classification* ASA Classification ASA Classification: 2 Assessment & Plan Anesthesia* Anesthesia Assessment Anesthesia Assessment: Discussed sedation and/or anesthesia options, risks, benefits, and alternatives with patient/parents/legal guardian/POA. Questions invited. The patient/parents/legal guardian/POA seems to understand and agrees to proceed with anesthesia plan. Reviewed the physical assessment, medical history, allergy history and patient home medications list prior to surgery/procedure/anesthetic and documented any changes. Performed airway and anesthesia risk assessments. Anesthesia Type Anesthesia Type: MAC Anesthesia Focused Assessment* Airway Assessment Mouth opens: >3 cm Mallampati Score: II Focused Labs Anesthesia Preop lab: CBC WBC 7.2 K/mm3 (4.4-11.0) 04/30/24 09:17 04/30/24 RBC 4.64 M/mm3 (4.2-5.4) 04/30/24 09:17 04/30/24 Hgb 13.2 g/dL (12.0-15.0) 04/30/24 09:17 04/30/24 Hct 41.1 % (37-47) 04/30/24 09:17 04/30/24 Plt Count 288 K/mm3 (150-450) 04/30/24 09:17 04/30/24 CHEMISTRY Potassium 4.2 mmol/L (3.5-5.1) 04/30/24 09:17 04/30/24 Sodium 140 mmol/L (136-145) 04/30/24 09:17 04/30/24 Magnesium 1.6 mg/dL (1.6-2.6) 09/20/18 10:44 09/20/18 Phosphorus 4.0 mg/dL (2.5-4.9) 04/21/23 09:02 04/21/23 BUN 17 mg/dL (7-18) 04/30/24 09:17 04/30/24 Creatinine 0.77 mg/dL (0.55-1.02) 04/30/24 09:17 04/30/24 Glucose 110 mg/dL (74-106) H 04/30/24 09:17 04/30/24 POC Glucose 117 mg/dL (70-110) H 02/06/19 08:06 02/06/19 TSH 2.14 uIU/mL (0.358-3.74) 02/04/21 09:07 02/04/21 COAG Pre-Assessment Diagnosis/Proposed Procedure Planned Operative Procedure(s): COLONOSCOPY Anesthesia History 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 When Was Last Pacemaker Check QUESTION #4 FULL TEXT: You/Your Family Experience fever (hyperthermia) with Anesthesia Last Oral Intake Last Oral intake: Last Oral Intake NPO since Meds taken in AM with sips of water? Meds patient instructed to take am of surgery PONV PONV - server administrator: PONV - server administrator Female Yes 08/29/24 14:31 HX of Motion Sickness No 08/29/24 14:31 HX of N/V After Surgery Yes 08/29/24 14:31 Non-Smoker Yes 08/29/24 14:31 Duration of Surgery greater No 08/29/24 14:31 than 60 minutes Number of Risk Factors 3 08/29/24 14:31 PONV Score Moderate Risk 08/29/24 14:31 Respiratory Assessment Respiratory Assessment - server administrator: Respiratory Tract Infection Hx - server administrator Hx Respiratory Tract Infection No 08/29/24 14:31 STOP Sleep Apnea STOP Sleep Apnea - server administrator: STOP Sleep Apnea - server administrator Hx Hypertension Yes 08/29/24 14:31 Hx Sleep Apnea Yes 08/29/24 14:31 CPAP No 08/29/24 14:31 BIPAP No 08/29/24 14:31 Do you snore loudly (louder than talking or can be heard Do you often feel tired/ fatigued/ sleepy during daytime? Has anyone observed you stop breathing during sleep? STOP Results Positive 08/29/24 14:31 QUESTION #5 FULL TEXT : Do you snore loudly (louder than talking or can be heard through closed doors)? 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 Specify any problems FACE SWELLED WITH 2ND UNIT ( 08/29/24 14:31 40+ YRS AGO) Hx of Preganancy in last 3 No 08/29/24 14:31 Months Nurse Filling Out Transfusion [email or web address] 08/29/24 14:31 & Questions: Date: 08/29/24 08/29/24 14:31 Time: 14:40 08/29/24 14:31 Patient unable to answer at this time (ie. confused, unrespo /Reproduction History /Reproductive History - server administrator: /Reproductive Hx- server administrator Hx Now No 08/29/24 14:31 Gestational Age (in weeks): EDC: Hx Hx Para Hx Section SAB PFSH Medical History Wears dentures Wears glasses Cancer Walker as ambulation aid Low iron High cholesterol Back pain History of hiatal hernia Gastric reflux Non-smoker CPAP (continuous positive airway pressure) dependence Sleep apnea History of edema History of echocardiogram Anemia Constipation Diarrhea Hemorrhoids Nausea Abdominal pain Anxiety Heart murmur Arthritis Rash Thyroid disease Fatigue Multinodular goiter Hypercholesterolemia Hypertension Diabetes Home Medications ?Medication ?Instructions ?Recorded ?Last Taken ?Type aspirin 81 mg tablet,delayed 81 mg PO DAILY 10/19/18 Unknown History release (Adult Low Dose Aspirin) lisinopril 5 mg tablet 5 mg PO QHS 10/19/18 Unknown History metformin 500 mg tablet 500 mg PO BID 10/19/18 Unknown History omeprazole 40 mg capsule,delayed 40 mg PO DAILY 01/22/19 Unknown History release calcium carbonate 600 mg PO DAILY 02/05/19 Unknown History cholecalciferol (vitamin D3) 50 2,000 unit PO DAILY 02/05/19 Unknown History mcg (2,000 unit) capsule multivitamin with minerals 1 ea PO DAILY 02/05/19 Unknown History dapagliflozin propanediol 10 mg 10 mg PO QAM 06/28/24 Unknown History tablet (Farxiga) rosuvastatin 20 mg tablet 20 mg PO QDAY 06/28/24 Unknown History verapamil 40 mg tablet 40 mg PO DAILY 06/28/24 Unknown History Allergy/AdvReac Type Severity Reaction Status Date / Time No Known Allergies Allergy Verified 08/29/24 14:25 Family History Mother Cancer Hypertension Hypercholesterolemia CVA (cerebral vascular accident) Father Heart disease Hypercholesterolemia Hypertension Kidney disease Surgical History Hx of colonoscopy Hx of biopsy History of hysterectomy History of Social History Smoking Status: Never smoker alcohol intake: never substance use type: does not use caffeine: Yes what type of physical activity do you participate in: walking frequency: 1-2 times per week Review of Systems (Anesthesia) ROS Narrative System reviewed and no additional complaints, except as documented.
[2024-09-04 09:56] LABS: Bedside Glucose 117 mg/dL (74-106)
--- NOTE | 2024-09-04 10:43 | PCM.HP.STD ---
HPI - General General Date of Admission: 09/04/24 Date of Service: 09/04/24 Chief Complaint: Screening colonoscopy HPI Narrative MARTHA FABIAN, is a 68 F who presents today for screening colonoscopy. 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 This is caused her to have a macrocytic anemia. She arrives here for a screening colonoscopy. *BGI established 2.7.25 oscopy. She was explained alternatives, risk and benefits include not withstanding bleeding, infection, sepsis, perforation, need for emergent surgery and . She will have an ASA of 3. Coding [facility] Medical History Wears dentures Wears glasses Cancer Walker as ambulation aid Low iron High cholesterol Back pain History of hiatal hernia Gastric reflux Non-smoker CPAP (continuous positive airway pressure) dependence Sleep apnea History of edema History of echocardiogram Anemia Constipation Diarrhea Hemorrhoids Nausea Abdominal pain Anxiety Heart murmur Arthritis Rash Thyroid disease Fatigue Multinodular goiter Hypercholesterolemia Hypertension Diabetes Home Medications ?Medication ?Instructions ?Recorded ?Last Taken ?Type aspirin 81 mg tablet,delayed 81 mg PO DAILY 10/19/18 09/01/24 History release (Adult Low Dose Aspirin) lisinopril 5 mg tablet 5 mg PO QHS 10/19/18 09/03/24 History metformin 500 mg tablet 500 mg PO BID 10/19/18 09/03/24 History omeprazole 40 mg capsule,delayed 40 mg PO DAILY 01/22/19 09/04/24 History release calcium carbonate 600 mg PO DAILY 02/05/19 09/03/24 History cholecalciferol (vitamin D3) 50 2,000 unit PO DAILY 02/05/19 09/03/24 History mcg (2,000 unit) capsule multivitamin with minerals 1 ea PO DAILY 02/05/19 09/03/24 History dapagliflozin propanediol 10 mg 10 mg PO QAM 06/28/24 08/31/24 History tablet (Farxiga) rosuvastatin 20 mg tablet 20 mg PO QDAY 06/28/24 09/03/24 History verapamil 40 mg tablet 120 mg PO DAILY 06/28/24 09/04/24 History Allergy/AdvReac Type Severity Reaction Status Date / Time No Known Allergies Allergy Verified 09/04/24 09:27 Family History Mother Cancer Hypertension Hypercholesterolemia CVA (cerebral vascular accident) Father Heart disease Hypercholesterolemia Hypertension Kidney disease Surgical History Hx of colonoscopy Hx of biopsy History of hysterectomy History of Social History Smoking Status: Never smoker alcohol intake: never substance use type: does not use caffeine: Yes what type of physical activity do you participate in: walking frequency: 1-2 times per week ROS Constitutional Constitutional: Denies fatigue, fever(s), poor appetite, weight gain or weight loss Gastrointestinal Gastrointestinal: Denies belching, bloating, change in bowel habits, change in stool character, chewing difficulty, coffee ground emesis, constipation, cramping, diarrhea, dyspepsia, dysphagia, early satiety, excessive flatus, fecal incontinence, heartburn, hematemesis, hematochezia, hemorrhoids, loose stools, melena, nausea, odynophagia, rectal bleeding, tenesmus, vomiting or weight changes Vital Signs Vital Signs Vital Signs: 09/04/24 09:30 09/04/24 09:30 Temperature 97.4 F L Temperature Source Temporal Pulse Rate 72 Respiratory Rate 18 Respiratory Pattern Normal Blood Pressure 162/74 H Blood Pressure Mean 103 Blood Pressure Source Monitor Blood Pressure Position Semi-Fowlers Blood Pressure Location Left Arm Pulse Ox 99 Oxygen Delivery Method Room Air Weight Weight: 165 lb 5.547 oz Body Mass Index (BMI) 29.2 Physical Exam Const alert, oriented x3, no apparent distress and healthy appearing General Appearance: cooperative GI normal to inspection, nondistended, normoactive bowel sounds, soft to palpation, non-tender and non-distended Percussion: normal to percussion Rectal Exam: deferred Results Lab / Micro Data Labs: Laboratory Results - last 24 hr 09/04/24 09:31: POC Glucose 117 H Assessment & Plan Assessment/Plan (1) Encounter for screening colonoscopy: PLAN: Assessment and Plan Assessment and Plan (1) Encounter for screening colonoscopy: Status: Acute Plan: She will undergo screening colon. She was explained alternatives, risk and benefits include, study bleeding, infection, sepsis, perforation, need for emergent urgent . She will have an ASA of 3.
--- NOTE | 2024-09-04 11:08 | OP.COLON_ITS ---
Patient Name: Gayle Singh Procedure Date: 09/04/2024 10:46 AM Date of : 1955 Age: 69 Procedure: Colonoscopy Indications: Screening for colorectal malignant neoplasm Providers: Karri Banegas DO Medicines: Monitored Anesthesia Care Patient Profile: This is a 69 year old female. Refer to note in patient chart for documentation of history and physical. Last Colonoscopy: 5 years ago. Complications: No immediate complications. Procedure: Pre-Anesthesia Assessment: - Prior to the procedure, a History and Physical was performed, and patient medications and allergies were reviewed. The patient is competent. The risks and benefits of the procedure and the sedation options and risks were discussed with the patient. All questions were answered and informed consent was obtained. Patient identification and proposed procedure were verified by the physician in the pre-procedure area. Mental Status Examination: alert and oriented. Airway Examination: normal oropharyngeal airway and neck mobility. Respiratory Examination: clear to auscultation. CV Examination: normal. Prophylactic Antibiotics: The patient does not require prophylactic antibiotics. Prior Anticoagulants: The patient has taken no anticoagulant or antiplatelet agents except for NSAID medication. ASA Grade Assessment: II - A patient with mild systemic disease. After reviewing the risks and benefits, the patient was deemed in satisfactory condition to undergo the procedure. The anesthesia plan was to use monitored anesthesia care (MAC). Immediately prior to administration of medications, the patient was re-assessed for adequacy to receive sedatives. The heart rate, respiratory rate, oxygen saturations, blood pressure, adequacy of pulmonary ventilation, and response to care were monitored throughout the procedure. The physical status of the patient was re-assessed after the procedure. After I obtained informed consent, the scope was passed under direct vision. Throughout the procedure, the patient's blood pressure, pulse, and oxygen saturations were monitored continuously. The Colonoscope was introduced through the anus with the intention of advancing to the cecum. The scope was advanced to the splenic flexure before the procedure was aborted. Medications were given. The colonoscopy was performed without difficulty. The patient tolerated the procedure well. The quality of the bowel preparation was 90 percent obscured. The rectum, hepatic flexure and sigmoid colon were photographed. Scope In: 11:01:09 AM Scope Out: 11:02:57 AM Total Procedure Duration Time 0 hours 1 minute 48 seconds Findings: The perianal and digital rectal examinations were normal. Multiple small and large-mouthed diverticula were found in the recto-sigmoid colon, sigmoid colon and descending colon. Copious quantities of stool was found in the entire colon, precluding visualization. Impression: - Diverticulosis in the recto-sigmoid colon, in the sigmoid colon and in the descending colon. - Stool in the entire examined colon. - No specimens collected. Recommendation: - Discharge patient to home. - Resume previous diet. - Continue present medications. - Repeat colonoscopy because the bowel preparation was poor. Procedure Code(s): --- Professional --- 97754, 53, Colonoscopy, flexible; diagnostic, including collection of specimen(s) by brushing or washing, when performed (separate procedure) CPT copyright 2021 [employer]. All rights reserved. The codes documented in this report are preliminary and upon licensed mental health professional review may be revised to meet current compliance requirements. Karri Banegas DO 09/04/2024 11:08:30 AM This report has been signed electronically. Number of Addenda: 0 Note Initiated On: 09/04/2024 10:46 AM
--- NOTE | 2024-09-04 11:09 | OP.CCLET_ITS ---
09/04/2024 Marcel Marina [address] [place] [address] Re : Colonoscopy procedure for Gayle Singh Dear Dr. Marina This procedure was performed on Wednesday, September 04, 2024. My impressions and recommendations are as follows: Impressions : - Diverticulosis in the recto-sigmoid colon, in the sigmoid colon and in the descending colon. - Stool in the entire examined colon. - No specimens collected. Recommendations : - Discharge patient to home. - Resume previous diet. - Continue present medications. - Repeat colonoscopy because the bowel preparation was poor. My findings are described in the full procedure note, which is enclosed. If I can be of further assistance, please feel free to contact me at . Sincerely, Karri Banegas, 09/04/2024 11:08:30 AM This report has been signed electronically.
--- NOTE | 2024-09-04 11:12 | PCM.POST.ANE ---
Anesthesia: Postop Eval I Current Vital Signs Temperature: 98.7 F Pulse Rate: 51 Blood Pressure: 111/62 Respiratory Rate: 16 Pulse Ox: 95 Oxygen Delivery Method: Room Air Assessment Airway patent: Yes Spontaneous unlabored respirations: Yes Mental status: Asleep nausea: No Vomiting: No Anesthesia Complication: No Fluid Hydration Crystalloid volume administer (ml): 30 Total IV fluid infused: 30 Progress Note Anesthesia document: Postop Eval 1 completed: Yes
--- NOTE | 2024-09-04 11:26 | PCM.POSTANE2 ---
Anesthesia Postop Eval I Sum Postop Eval Completion status Anesthesia document: Postop Eval 1 completed: Yes Anesthesia Postop Eval I Summary Anesthesia Postop Eval I Summary: Anesthesia Postop Eval I: Assessment Summary Airway patent Yes 09/04/24 11:14 [email or web address] Spontaneous unlabored Yes 09/04/24 11:14 [email or web address] respirations Mental status Asleep 09/04/24 11:14 [email or web address] nausea No 09/04/24 11:14 [email or web address] Vomiting No 09/04/24 11:14 [email or web address] Anesthesia Postop Eval I: Fluid Summary Crystalloid volume administer 30 09/04/24 11:14 [email or web address] (ml) Colloids volume administered ( ml) Blood Product volume administered (ml) Total IV fluid infused 30 09/04/24 11:14 [email or web address] Anesthesia Postop Eval I: Summary Notes Anesthesia Complication No 09/04/24 11:14 [email or web address] Anesthesia Complication Comment: Post-operative progress note Anesthesia: Postop Eval II Evaluation Mental status: Awake Pain Level: 0 nausea: No Vomiting: No
== END 2024-09-04 12:16 | disposition home or self-care (01) ==
LOC: EN 09:17 → AC 09:18
PROVIDERS: PCP Family Medicine; Referring Provider Family Medicine; Visit Provider Internal Medicine Gastroenterology
PROC: 0DJD8ZZ Inspection of Lower Intestinal Tract, Via Natural or Artificial Opening Endoscopic (ICD-10-PCS; CPT 45378; principal; 2024-09-04 10:10)
DX: Z12.11 Encounter for screening for malignant neoplasm of colon (principal); E11.9 Type 2 diabetes mellitus without complications; K57.30 Diverticulosis of large intestine without perforation or abscess without bleeding; E78.00 Pure hypercholesterolemia, unspecified; K21.9 Gastro-esophageal reflux disease without esophagitis; I10 Essential (primary) hypertension; Z79.82 Long term (current) use of aspirin; Z79.84 Long term (current) use of oral hypoglycemic drugs; Z79.899 Other long term (current) drug therapy
CPT/HCPCS: 45378; 82962; A4216; J2405

== ENCOUNTER → 2024-10-09 | Outpatient (CLI) | payer MEDICARE, OTHER, SELFPAY ==
[2024-10-09 13:11] LABS: Hemoglobin A1c 6.8 % (<=5.6)
[2024-10-09 13:13] LABS: Microalbumin,Random Urine < 12.0 mg/L (NO RANGE EST.); Microalbumin:Creatinine Ratio UNABLE TO CALCULATE mg/g CRE
[2024-10-09 13:53] LABS: ALB/GLOB Ratio 1.4 RATIO (0.9-2.4); AST(SGOT) 23 U/L (<=31); Alanine Aminotransfer ALT/SGPT 18 U/L (<=34); Albumin, Serum 4.9 g/dL (3.4-4.8); Alkaline Phosphatase 42 U/L (35-104); Anion Gap 14 (5-15); BUN 17 mg/dL (4-19); BUN/Creat Ratio 19.5 RATIO (10-20); Calcium,Total 10.2 mg/dL (7.6-11.0); Carbon Dioxide 25.7 mmol/L (21.0-32.0); Chloride 102 mmol/L (98-108); Cholesterol 158 mg/dL (<=200); Creatinine, Serum 0.86 mg/dL (0.70-1.20); EST Glomerular Filtration Rate 74 (>60); Ferritin 20 ng/mL (22-378); Globulin 3.4 g/dL (2.2-4.2); Glucose 99 mg/dL (70-99); High Density Lipoprotein 64 mg/dL; Low Density Lipoprotein Calc. 72 mg/dL; Potassium 4.3 mmol/L (3.3-5.1); Protein, Total 8.3 g/dL (5.9-8.4); Sodium Level 141 mmol/L (133-145); Total Bilirubin 0.37 mg/dL (0.00-1.30); Triglycerides 106 mg/dL; Very Low Density Lipoprotein 21 mg/dL (5-40); Vitamin B12 561 pg/mL (180-914); cholesterol:hdl ratio screen 2.45
[2024-10-09 14:07] LABS: Iron 47 ug/dL (50-170); Iron Binding Capacity,Total 335 ug/dL (250-450); Iron Binding Capacity,Unsat 288 ug/dL (228-428)
[2024-10-12 11:08] LABS: Vitamin D 1,25-Dihydroxy 49.8 pg/mL (24.8-81.5)
== END | disposition home or self-care (01) ==
LOC: MFPLAB 10:30
PROVIDERS: PCP Family Medicine; Referring Provider Family Medicine; Visit Provider Family Medicine
DX: E11.8 Type 2 diabetes mellitus with unspecified complications (principal); E55.9 Vitamin D deficiency, unspecified; E53.8 Deficiency of other specified B group vitamins; E61.1 Iron deficiency
CPT/HCPCS: 36415; 80053; 80061; 82043; 82570; 82607; 82652; 82728; 83036; 83540; 83550

== ENCOUNTER → 2024-10-25 | Outpatient (CLI) | payer MEDICARE, OTHER, SELFPAY ==
--- NOTE | 2024-10-25 09:13 | RAD_ITS ---
EXAM: XR Right Hip With Pelvis When Performed, 2 or 3 Views CLINICAL INDICATION: PAIN TECHNIQUE: Two or three views of the right hip with pelvis when performed. COMPARISON: No relevant prior studies available. FINDINGS: BONES/JOINTS: Severe degenerative changes of the right hip joint with suggestion of avascular necrosis. No acute fracture. No dislocation. SOFT TISSUES: Soft tissue swelling. RAD/Hips B/L min 2 views w/ Pelvis IMPRESSION: Severe degenerative changes of the right hip joint with suggestion of avascular necrosis. Reading Location: [id number]
--- NOTE | 2024-10-25 09:13 | RAD_ITS ---
EXAM: XR Lumbosacral Spine, 2 or 3 Views CLINICAL INDICATION: PAIN TECHNIQUE: Frontal and lateral views of the lumbar spine and sacrum. COMPARISON: No relevant prior studies available. FINDINGS: VERTEBRAE: Mild multilevel endplate degenerative changes of L1-S1. Mild facet arthropathy of L3-S1. No acute fracture. Normal alignment. SACRUM/COCCYX: Unremarkable as visualized. No acute fracture. DISC SPACES: No acute findings. No significant narrowing. SOFT TISSUES: Unremarkable. RAD/Lumbar Spine 2 or 3 Views IMPRESSION: Degenerative changes as above. Reading Location: [id number]
== END | disposition home or self-care (01) ==
LOC: MTRAD 08:58
PROVIDERS: PCP Family Medicine; Referring Provider Family Medicine; Visit Provider Family Medicine
DX: M16.11 Unilateral primary osteoarthritis, right hip (principal); M54.50 Low back pain, unspecified
CPT/HCPCS: 72100; 73521

== ENCOUNTER → 2024-11-06 | Outpatient (CLI) | payer MEDICARE, OTHER, SELFPAY | END | disposition home or self-care (01) | LOC: LABSPEC 08:22 | PROVIDERS: PCP Family Medicine; Referring Provider Internal Medicine Medical Oncology; Visit Provider Internal Medicine Medical Oncology | DX: E61.1 Iron deficiency (principal); C88.00 Waldenstrom 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 | CPT/HCPCS: 82274 ==

== ENCOUNTER → 2024-11-12 | Outpatient (CLI) | payer MEDICARE, OTHER, SELFPAY ==
--- NOTE | 2024-11-12 09:30 | RAD_ITS ---
PROCEDURE: BONE SURVEY COMP(AXIAL APPEND) 11/12/2024 REASON FOR EXAM: MACROGLOBULINEMIA F, age 69 y/o . TECHNIQUE: BONE SURVEY COMP(AXIAL APPEND) COMPARISON: Radiographs on 10/25/2024. FINDINGS: No fracture or dislocation is seen. No lytic or blastic bone lesion is noted. No periosteal reaction is identified. Unremarkable lungs. Degenerative joint disease of the hips, more prominent on the right side. 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 RAD/Bone Survey Comp(Axial&Append) IMPRESSION: No suspicious bone lesion is identified. Reading [facility]
--- OUTSIDE RECORDS SUMMARY | 2024-11-12 20:42 | XMS RPT_ITS | CCD ---
[facility] Organization [facility] [place] [facility] Team Providers Care Trap Operator Name Role Phone Scott Steele MD Primary Care Provider Juan Ramon Purcell MD Unavailable Laina GREY, Dr. Scott Crump Primary Care Provider Dr. Scott Steele MD Referring Provider [phone] Dr. Karri Banegas DO Attending Provider Dr. Karri Banegas DO Other Provider [phone] Dr. Scott Steele MD Attending Provider SCOTT STEELE Primary Care Unavailable JUAN RAMON PURCELL Attending Unavailable JUAN RAMON PURCELL Referring Unavailable SCOTT STEELE Primary Care Unavailable JUAN RAMON PURCELL Referring Unavailable SCOTT STEELE Primary Care Unavailable Dr. Scott Steele MD Primary Care Provider Dr. Scott Steele MD Referring Provider [phone] Dr. Karri Banegas DO Attending Provider Theresa Serna Attending Provider Unavailable Dr. Kong Vieira MD Attending Provider Dr. Kong Vieira MD Referring Provider Scott Steele Primary Care Unavailable Scott Steele Attending Unavailable Scott Steele Referring Unavailable Scott Steele Primary Care Unavailable Karri Banegas Attending Unavailable Scott Steele Referring Unavailable Kong Vieira Referring Unavailable Kong Vieira Attending Unavailable Scott Steele Primary Care Unavailable Kong Vieira Attending Unavailable Kong Vieira Referring Unavailable Scott Steele Primary Care Unavailable Scott Steele Attending Unavailable Scott Steele Referring Unavailable Scott Steele Primary Care Unavailable Scott Steele Primary Care Unavailable Friend, Karri Attending Unavailable Scott Steele Referring Unavailable Kong Vieira Attending Unavailable Scott Steele Referring Unavailable Scott Steele Primary Care Unavailable Theresa Serna Attending Unavailable Scott Steele Primary Care Unavailable Scott Steele Primary Care Unavailable Friend, Karri Consulting Unavailable Friend, Karri Attending Unavailable Scott Steele Referring Unavailable Scott Steele Attending Unavailable Scott Steele Referring Unavailable Scott Steele Primary Care Unavailable Kong Vieira Referring Unavailable Kong Vieira Attending Unavailable Scott Steele Primary Care Unavailable Scott Steele Primary Care Unavailable Hamzah Guzman V Attending Unavailable Hamzah Guzman V Referring Unavailable Kiara Yarbrough Consulting Unavailable Scott Steele Primary Care Unavailable Scott Steele Attending Unavailable Allergies Allergy Classification Reported Allergen(s) Allergy Type Date of Onset Reaction(s) Facility (6 sources) empagliflozin; Translations: [EMPAGLIFLOZIN] Drug Allergy 4 Other: See Comments [facility] (1 source) empagliflozin Drug Allergy 5 [facility] Medications Current Medications Medication Drug Class(es) Dates Sig (Normalized) Sig (Original) acetaminophen 500 mg oral tablet (2 sources) take 2 tablets by mouth every eight hours as needed acetaminophen (TYLENOL EXTRA STRENGTH) 500 mg tablet Take 1,000 mg by mouth every 8 hours as needed. Active aspirin 81 mg delayed release oral tablet (20 sources) Platelet Aggregation Inhibitor, Nonsteroidal Anti-inflammatory Drug Start: 10-19-2018 Aspirin (Adult Low Dose Aspirin) 81 mg tablet,delayed release (DR/EC) Active 81 mg PO DAILY October 19, 2018 12:00am Start: 09-05-2013 take 1 tablet by noemi th once daily at mealtime Aspirin 81 mg tab Take 1 tablet by mouth once daily. Take with food. 30 tablet 11 09/05/2013 Active calcium carbonate 1500 mg oral tablet (20 sources) Start: 02-05-2019 take 1 tablet by mouth once daily Calcium Carbonate 600 MG tablet Active 600 mg PO DAILY February 05, 2019 12:00am Calcium Carbonate / vitamin D3 (2 sources) take 1 tablet by mouth twice daily calcium carbonate/vitamin D3 (CALCIUM + D ORAL) Take 1 tablet by mouth two times a day. Active cholecalciferol 0.05 mg oral capsule (20 sources) Vitamin D Start: 02-05-2019 take 1 capsule by mouth once daily Cholecalciferol (Vitamin D3) 2,000 UNIT capsule Active 2000 U PO DAILY February 05, 2019 12:00am Start: 08-30-2016 take 1 capsule by [facility] once daily Cholecalciferol, Vitamin D3, 5,000 unit cap Take 1 capsule by mouth once daily. 0 08/30/2016 Active take 2 tablets by [facility] once daily cholecalciferol (VITAMIN D) 1,000 unit tab tablet Take two tablets by mouth once daily. Active clobetasol propionate 0.0005 mg/mg topical ointment (2 sources) Corticosteroid Start: 02-22-2024 clobetasol (TEMOVATE) 0.05 % ointment Apply 1 application to affected area two times a day as needed. 02/22/2024 Active dapagliflozin 10 mg oral tablet (7 sources) Sodium-Glucose Cotransporter 2 Inhibitor Start: 06-28-2024 take 1 tablet by mouth once daily in the morning Dapagliflozin Propanediol (Farxiga) 10 mg tablet Active 10 mg PO EVERY MORNING June 28, 2024 1:00am take 1 tablet by mouth once christian y FARXIGA 10 mg tablet Take 10 mg by mouth once daily. Active ferrous sulfate 325 mg oral tablet (5 sources) Start: 10-17-2024 take 1 tablet by mouth once daily Ferrous Sulfate 325 mg (65 mg iron) tablet Active 325 mg PO daily October 17, 2024 12:00am take 1 tablet by mouth twice sukhdeep ly ferrous sulfate (IRON) 325 mg (65 mg iron) tablet Take 325 mg by mouth two times a day. Active lisinopril 20 mg oral tablet (20 sources) Angiotensin Converting Enzyme Inhibitor Start: 10-17-2024 take 1 tablet by mouth once daily Lisinopril 20 mg tablet Active 20 mg PO daily October 17, 2024 12:00am Start: 10-19-2018 End: 10-17-2024 take 1 tablet by mouth at bedtime Lisinopril 5 mg tablet Discontinued 5 mg PO AT BEDTIME October 19, 2018 12:00am October 17, 2024 10:29am Start: 08-09-2018 take 1 tablet by noemi th once daily lisinopril (ZESTRIL, PRINIVIL) 20 mg tablet Indications: Essential hypertension Take 1 tablet by mouth once daily. 90 tablet 1 08/09/2018 Active mecobalamin (3 sources) Start: 10-17-2024 Mecobalamin (V itamin B12) 500 mcg tablet,chewable Active ug PO October 17, 2024 12:00am metFORMIN hydrochloride 1000 mg oral tablet (20 sources) Biguanide Start: 10-17-2024 take 1 tablet by mouth twice daily Metformin 1,000 mg tablet Active 1000 mg PO TWICE A DAY October 17, 2024 12:00am Start: 10-19-2018 End: 10-17-2024 take 1 tablet by mouth twice daily Metformin 500 mg tablet Discontinued 500 mg PO TWICE A DAY October 19, 2018 12:00am October 17, 2024 10:29am Start: 05-07-2018 take 1 tablet by noemi th twice daily at mealtime metFORMIN (GLUCOPHAGE) 1,000 mg tablet Indications: Type 2 diabetes mellitus without complication, without long-term current use of insulin (HCC) Take 1 tablet by mouth twice daily with meals. 180 tablet 1 05/07/2018 Active multivitamin tablet (2 sources) Start: 08-30-2016 take 1 tablet by mouth once daily multivitamin tablet Take 1 tablet by mouth once daily. 0 08/30/2016 Active Multivitamin With Minerals (15 sources) Start: 02-05-2019 Multivitamin W ith Minerals Active 1 EACH PO DAILY February 05, 2019 10:46am Start: 02-05-2019 Multivitamin W ith Minerals Active 1 EACH PO DAILY February 04, 2019 11:00pm Start: 02-05-2019 Multivitamin W ith Minerals Active 1 EACH PO DAILY February 05, 2019 12:00am Multivitamin With Minerals 1 EACH tablet (5 sources) Start: 02-05-2019 take 1 tablet by mouth once daily Multivitamin With Minerals 1 EACH tablet Active 1 NMA PO DAILY February 05, 2019 12:00am omeprazole 20 mg delayed release oral capsule (20 sources) Proton Pump Inhibitor Start: 02-13-2024 take 1 capsule by mouth once daily omeprazole (PRILOSEC) 20 mg capsule Take 20 mg by mouth once daily. 02/13/2024 Active Start: 01-22-2019 take 1 capsule by mo [facility] once daily Omeprazole 40 mg capsule,delayed release(DR/EC) Active 40 mg PO DAILY January 22, 2019 12:00am rosuvastatin calcium 20 mg oral tablet (7 sources) HMG-CoA Reductase Inhibitor Start: 06-28-2024 take 1 tablet by mouth once daily Rosuvastatin 20 mg tablet Active 20 mg PO daily June 28, 2024 1:00am take 1 tablet by mouth once christian y rosuvastatin (CRESTOR) 20 mg tablet Take 20 mg by mouth once daily. Active urea 400 mg/ml topical cream (2 sources) Start: 05-31-2018 urea (CARMOL) 40 % crea Apply 1 application to affected area as needed. 1 Tube 5 05/31/2018 Active verapamil hydrochloride 40 mg oral tablet (20 sources) Calcium Channel Sergio Start: 06-28-2024 Verapamil 40 mg tabl et Active 120 mg PO DAILY June 28, 2024 11:19am 240 orally daily IN AM; 120 MG IN PM Start: 10-19-2018 End: 06-28-2024 take 1 tablet by mouth twice daily Verapamil 40 mg tablet Discontinued 40 mg PO TWICE A DAY October 19, 2018 12:00am June 28, 2024 11:19am Start: 05-07-2018 take 1 tablet by noemi th twice daily verapamil (CALAN, ISOPTIN) 120 mg tablet Indications: Essential hypertension Take 1 tablet by mouth twice daily. 180 tablet 1 05/07/2018 Active Completed/Discontinued Medications Medication Drug Class(es) Dates Sig (Normalized) Sig (Original) diclofenac sodium 25 mg delayed release oral tablet (20 sources) Nonsteroidal Anti-inflammatory Drug Start: 10-19-2018 End: 01-22-2019 take 1 tablet by mouth twice daily Diclofenac Sodium 25 mg tablet,delayed release (DR/EC) Discontinued 25 mg PO TWICE A DAY October 19, 2018 12:00am January 22, 2019 1:04pm Start: 08-09-2018 take 1 tablet by noemi th twice daily for pain diclofenac, EC, (VOLTAREN) 75 mg EC tablet Indications: Pain in right hip Take 1 tablet by mouth twice daily. For pain/inflammation. Take with food. 60 tablet 2 08/09/2018 Active lovastatin 40 mg oral tablet (20 sources) HMG-CoA Reductase Inhibitor Start: 08-09-2018 End: 06-28-2024 take 1 tablet by mouth once daily Lovastatin 40 mg tablet Discontinued 40 mg PO DAILY October 19, 2018 12:00am June 28, 2024 11:14am niacin 50 mg oral tablet (20 sources) Nicotinic Acid Start: 10-19-2018 End: 08-29-2024 take 1 tablet by mouth four times daily Niacin 50 mg tablet Discontinued 50 mg PO .qid October 19, 2018 12:00am August 29, 2024 2:27pm Start: 09-05-2013 take 1 tablet by noemi th twice daily niacin sustained release (NIASPAN) 1,000 mg CR tablet Take 1 tablet by mouth twice daily. 09/05/2013 Active Problems Active Problems Problem Classification Problem Date Documented Da te Episodic/Chronic Abdominal pain (20 sources) Abdominal pain; Translations: [Unspecified abdominal pain] 01-22-2019 Episodic Anxiety disorders (20 sources) Anxiety; Translations: [Anxiety disorder, unspecified] 01-22-2019 Chronic Deficiency and other anemia (20 sources) Anemia; Translations: [Anemia, unspecified] 01-22-2019 Episodic Diabetes mellitus with complications (1 source) Type 2 diabetes mellitus with unspecified complications; Translations: [Type 2 diabetes mellitus with unspecified complications] Onset: 5 Chronic Diabetes mellitus without complication (20 sources) Diabetes mellitus; Translations: [Type 2 diabetes mellitus without complications] Onset: 6 10-30-2018 Chronic Disorders of lipid metabolism (20 sources) Hypercholesterolemia; Translations: [Pure hypercholesterolemia, unspecified] Onset: 4 10-30-2018 Chronic Essential hypertension (20 sources) Hypertensive disorder; Translations: [Essential (primary) hypertension] Onset: 5 10-30-2018 Chronic Heart valve disorders (20 sources) Heart murmur; Translations: [Cardiac murmur, unspecified] 01-22-2019 Episodic Hemorrhoids (20 sources) Hemorrhoids; Translations: [Unspecified hemorrhoids] 01-22-2019 Episodic Malaise and fatigue (20 sources) Fatigue; Translations: [Other fatigue] 01-22-2019 Episodic Nausea and vomiting (20 sources) Nausea; Translations: [Nausea] 01-22-2019 Episodic Neoplasms of unspecified nature or uncertain behavior (3 sources) Monoclonal gammopathy (clinical); Translations: [Monoclonal gammopathy] Onset: 4 04-05-2024 Chronic Nutritional deficiencies (7 sources) Iron deficiency; Translations: [Iron deficiency] Onset: 5 10-28-2024 Episodic Comment on above: Has created history of chronic iron deficiency, has been taking iron for over 2 years, Osteoarthritis (20 sources) Arthritis; Translations: [Unspecified osteoarthritis, unspecified site] 01-22-2019 Chronic Other gastrointestinal disorders (20 sources) Diarrhea; Translations: [Diarrhea, unspecified] 01-22-2019 Episodic Other gastrointestinal disorders (20 sources) Constipation; Translations: [Constipation, unspecified] 01-22-2019 Episodic Other inflammatory condition of skin (2 sources) Psoriasis; Translations: [Psoriasis, unspecified] Onset: 4 12-08-2015 Chronic Other non-traumatic joint disorders (1 source) Pain in right hip; Translations: [Pain in right hip] Onset: 5 Episodic Other nutritional; endocrine; and metabolic disorders (6 sources) Macroglobulinemia; Translations: [Macroglobulinemia] 10-28-2024 Chronic Comment on above: Discussed causes of high IgM level including Lymphoma. Pt wants to continue with work up. Discussed causes of high IgM level including Lymphoma. Pt wants to continue with work up.She does not want to go back to [facility]. Other screening for suspected conditions (not mental disorders or infectious disease) (18 sources) Patient encounter status; Translations: [Encounter for screening for malignant neoplasm of colon] Onset: 6 Resolved: 7 08-30-2016 Episodic Other skin disorders (20 sources) Eruption; Translations: [Rash and other nonspecific skin eruption] 01-22-2019 Episodic Comment on above: PSORASIS RASH ON ELB OW Residual codes; unclassified (20 sources) History of colonoscopy; Translations: [Other specified postprocedural states] 01-22-2019 Episodic Comment on above: 2014 Residual codes; unclassified (20 sources) Past history of procedure; Translations: [Other specified postprocedural states] 10-30-2018 Episodic Comment on above: FNA Right thyroid- 0 10/23/18 Thyroid disorders (20 sources) Multinodular goiter; Translations: [Nontoxic multinodular goiter] 10-30-2018 Chronic Thyroid disorders (20 sources) Disorder of thyroid gland; Translations: [Disorder of thyroid, unspecified] 01-22-2019 Episodic Unclassified (1 source) Waldenstrom 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; Translations: [Waldenstrom 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] Onset: Past or Other Problems Problem Classification Problem Date Documented Da te Episodic/Chronic Diseases of mouth; excluding dental (2 sources) Angular cheilitis; Translations: [Diseases of lips] Onset: 04-19-2016 04-19-2016 Episodic Genitourinary symptoms and ill-defined conditions (2 sources) Blood in urine; Translations: [Hematuria, unspecified] Onset: 09-06-2013 Resolved: 06-08-2016 05-17-2021 Episodic Other connective tissue disease (2 sources) Triggering of digit; Translations: [Trigger finger, left middle finger] Onset: 01-19-2017 01-19-2017 Episodic Other inflammatory condition of skin (2 sources) Rosacea; Translations: [Rosacea, unspecified] Onset: 09-05-2013 Resolved: 06-08-2016 06-08-2016 Chronic Other inflammatory condition of skin (2 sources) Granuloma annulare; Translations: [Granuloma annulare] Onset: 09-05-2013 12-08-2015 Episodic Other inflammatory condition of skin (1 source) Granuloma annulare; Translations: [Granuloma annulare] Onset: 04-02-2024 Episodic Other non-traumatic joint disorders (2 sources) Pain in right knee; Translations: [Pain in joint, lower leg] Onset: 12-08-2015 04-19-2016 Episodic Other non-traumatic joint disorders (2 sources) Hip pain; Translations: [Pain in right hip] Onset: 12-08-2015 04-19-2016 Episodic Other skin disorders (4 sources) Callosity; Translations: [Corns and callosities] Onset: 07-22-2015 Resolved: 06-08-2016 08-30-2016 Episodic Results Test Name Value Interpretation Reference Range Facility Stool Occult Blood iFOBon STOB Negative Normal [facility] Comment on above: Performed By: #### L 503.3724, L501.9985, L506.1000, L503.0105, L500.4050, L500.4100, L100.0100, L503.6550, L502.0250, L503.6150 #### [facility] [address] [place], [place], [id number] Stool gastrointestinal hemog lobin detection by immunologic methodOrdered By: Kong Vieira on 11-06-2024 Lower GI hemoglobin IA Ql (Stl) [facility] Celiac AB,Comprehensiveon ANTIGLIADIN IGA 3 units Normal 0-19 [facility] Comment on above: Result Comment: Nega tive 0 - 19 Weak Positive 20 - 30 Moderate to Strong Positive >30 Performed By: #### L 503.6075, L501.9985, L506.1000, L503.0105, L500.4050, L500.4100, L100.0100, L503.6550, L502.0250, L503.6150 #### [facility] [address] [place], [address] ANTIGLIADIN IGG 1 units Normal 0-19 [facility] Comment on above: Result Comment: Nega tive 0 - 19 Weak Positive 20 - 30 Moderate to Strong Positive >30 Performed By: #### L 503.6075, L501.9985, L506.1000, L503.0105, L500.4050, L500.4100, L100.0100, L503.6550, L502.0250, L503.6150 #### [facility] [address] [place], [place], [id number] ENDOMYSIAL IGA Negative Normal Negative [facility] Comment on above: Performed By: #### L 503.6075, L501.9985, L506.1000, L503.0105, L500.4050, L500.4100, L100.0100, L503.6550, L502.0250, L503.6150 #### [facility] [address] [place], [place], [id number] tTG IGA <2 Normal 0-3 [facility] Comment on above: Result Comment: Nega tive 0 - 3 Weak Positive 4 - 10 Positive >10 Tissue Transglutaminase (tTG) has been identified as the endomysial antigen. Studies have demonstr- ated that endomysial IgA antibodies have over 99% specificity for gluten sensitive enteropathy. Performed By: #### L 503.6075, L501.9985, L506.1000, L503.0105, L500.4050, L500.4100, L100.0100, L503.6550, L502.0250, L503.6150 #### [facility] [address] [place], [place], [id number] tTG IGG <2 Normal 0-5 [facility] Comment on above: Result Comment: Nega tive 0 - 5 Weak Positive 6 - 9 Positive >9 Performed By: #### L 503.6075, L501.9985, L506.1000, L503.0105, L500.4050, L500.4100, L100.0100, L503.6550, L502.0250, L503.6150 #### [facility] [address] [place], [place], [id number] DEE + Protein Elect, Serumon 10-31-2024 Albumin [Mass/Vol] 4.1 g/dL Normal 2.9-4.4 [facility] Comment on above: Order Comment: Order Date: 01/18/24 Order Info: [id number] - CMP Order Info: [id number] - LIPID Order Info: [id number] - TIBC Order Info: [id number] - FE Order Info: [id number] - DARRYL Performed By: #### L 503.6075, L501.9985, L506.1000, L503.0105, L500.4050, L500.4100, L100.0100, L503.6550, L502.0250, L503.6150 #### [facility] [address] [place], [place], [id number] Albumin/Globulin [Mass ratio] 1.3 {ratio} Normal 0.7-1.7 [facility] Comment on above: Order Comment: Order Date: 01/18/24 Order Info: [id number] - CMP Order Info: - LIPID Order Info: [id number] TIBC Order Info: [id number] FE Order Info: [id number] - DARRYL Performed By: #### L 503.6075, L501.9985, L506.1000, L503.0105, L500.4050, L500.4100, L100.0100, L503.6550, L502.0250, L503.6150 #### [facility] [address] [place], [place], [id number] (400) [id number] 0.2 g/dL Normal 0.0-0.4 [facility] Comment on above: Order Comment: Order Date: 01/18/24 Order Info: [id number] - CMP Order Info: - LIPID Order Info: [id number] TIBC Order Info: [id number] FE Order Info: [id number] - DARRYL Performed By: #### L 503.6075, L501.9985, L506.1000, L503.0105, L500.4050, L500.4100, L100.0100, L503.6550, L502.0250, L503.6150 #### [facility] [address] [facility] [place], [place], [id number] (446) [id number] 0.9 g/dL Normal 0.4-1.0 [facility] Comment on above: Order Comment: Order Date: 01/18/24 Order Info: [id number] - CMP Order Info: - LIPID Order Info: [id number] TIBC Order Info: 2497-08 FE Order Info: [id number] - DARRYL Performed By: #### L 503.6075, L501.9985, L506.1000, L503.0105, L500.4050, L500.4100, L100.0100, L503.6550, L502.0250, L503.6150 #### [facility] [address] [facility] [place], [place], [id number] BETA GLOBULIN 1.0 g/dL Normal 0.7-1.3 [facility] Comment on above: Order Comment: Order Date: 01/18/24 Order Info: [id number] - CMP Order Info: - LIPID Order Info: [id number] TIBC Order Info: 2497-08 Order Info: [id number] - DARRYL Performed By: #### L 503.6075, L501.9985, L506.1000, L503.0105, L500.4050, L500.4100, L100.0100, L503.6550, L502.0250, L503.6150 #### [facility] [address] [place], [address] GAMMA GLOBULIN 1.1 g/dL Normal 0.4-1.8 [facility] Comment on above: Order Comment: Order Date: 01/18/24 Order Info: [id number] - CMP Order Info: - LIPID Order Info: [id number] TIBC Order Info: 2497-08 Order Info: [id number] - DARRYL Performed By: #### L 503.6075, L501.9985, L506.1000, L503.0105, L500.4050, L500.4100, L100.0100, L503.6550, L502.0250, L503.6150 #### [facility] [address] [place], [address] Globulin (S) [Mass/Vol] 3.3 g/dL Normal 2.2-3.9 [facility] Comment on above: Order Comment: Order Date: 01/18/24 Order Info: [id number] - CMP Order Info: - LIPID Order Info: [id number] TIBC Order Info: 2497-08 Order Info: [id number] - DARRYL Performed By: #### L 503.6075, L501.9985, L506.1000, L503.0105, L500.4050, L500.4100, L100.0100, L503.6550, L502.0250, L503.6150 #### [facility] [address] [place], [address] DEE RESULT,S Comment: Normal . [facility] Comment on above: Order Comment: Order Date: 01/18/24 Order Info: 07- - CMP Order Info: - LIPID Order Info: [id number] - TIBC Order Info: 2497-08 - FE Order Info: [id number] - DARRYL Result Comment: Pres ence of monoclonal protein is unclear at this time. Suggest repeat in 3 to 6 months if clinically indicated. Performed By: #### L 503.6075, L501.9985, L506.1000, L503.0105, L500.4050, L500.4100, L100.0100, L503.6550, L502.0250, L503.6150 #### [facility] [address] [place], [address] IMMUNOGLOB A QN 178 mg/dL Normal 87-352 [facility] Comment on above: Order Comment: Order Date: 01/18/24 Order Info: 785-05 - CMP Order Info: - LIPID Order Info: [id number] TIBC Order Info: 2497-08 FE Order Info: [id number] - DARRYL Performed By: #### L 503.6075, L501.9985, L506.1000, L503.0105, L500.4050, L500.4100, L100.0100, L503.6550, L502.0250, L503.6150 #### [facility] [address] [place], [address] IMMUNOGLOB G QN 772 mg/dL Normal 586-1602 [facility] Comment on above: Order Comment: Order Date: 01/18/24 Order Info: 785-05 - CMP Order Info: - LIPID Order Info: [id number] - TIBC Order Info: 2497-08 - FE Order Info: [id number] - DARRYL Performed By: #### L 503.6075, L501.9985, L506.1000, L503.0105, L500.4050, L500.4100, L100.0100, L503.6550, L502.0250, L503.6150 #### [facility] [address] [place], [place], [address] IMMUNOGLOB M QN 603 mg/dL High 26-217 [facility] Comment on above: Order Comment: Order Date: 01/18/24 Order Info: 785- - CMP Order Info: - LIPID Order Info: [id number] - TIBC Order Info: 2497-08 - FE Order Info: [id number] - DARRYL Performed By: #### L 503.6075, L501.9985, L506.1000, L503.0105, L500.4050, L500.4100, L100.0100, L503.6550, L502.0250, L503.6150 #### [facility] [address] [place], [place], [id number] M-Kris Comment: Normal Not Observed [facility] Comment on above: Order Comment: Order Date: 01/18/24 Order Info: 785-05 - CMP Order Info: - LIPID Order Info: [id number] TIBC Order Info: 2497-08 FE Order Info: [id number] - DARRYL Result Comment: ASYM METRICAL GAMMA Performed By: #### L 503.6075, L501.9985, L506.1000, L503.0105, L500.4050, L500.4100, L100.0100, L503.6550, L502.0250, L503.6150 #### [facility] [address] [place], [place], [id number] NOTE: Comment Normal . [facility] Comment on above: Order Comment: Order Date: 01/18/24 Order Info: 785- - CMP Order Info: - LIPID Order Info: [id number] - TIBC Order Info: 2497-08 - FE Order Info: [id number] - DARRYL Result Comment: Prot ein electrophoresis scan will follow via computer, mail, or options advisor delivery. Performed By: #### L 503.6075, L501.9985, L506.1000, L503.0105, L500.4050, L500.4100, L100.0100, L503.6550, L502.0250, L503.6150 #### [facility] [address] [place], [place], [id number] Protein [Mass/Vol] 7.4 g/dL Normal 6.0-8.5 [facility] [facility] Comment on above: Order Comment: Order Date: 01/18/24 Order Info: [id number] - CMP Order Info: [id number] - LIPID Order Info: [id number] - TIBC Order Info: [id number] - FE Order Info: [id number] - DARRYL Performed By: #### L 503.6075, L501.9985, L506.1000, L503.0105, L500.4050, L500.4100, L100.0100, L503.6550, L502.0250, L503.6150 #### [facility] [address] [place], [place], [id number] [phone] L501.5101on 10-31-2024 GGTP 18 IU/L Normal 0-60 [facility] Comment on above: Result Comment: Perf ormed at: [facility] [address] [id number] [employer] Worker: Han Das PhD, Phone: [phone] Performed By: #### L 503.6075, L501.9985, L506.1000, L503.0105, L500.4050, L500.4100, L100.0100, L503.6550, L502.0250, L503.6150 #### [facility] [address] [place], [place], [address] Immunoglobulins G/A/Mon 06- 0-2024 IMMUNOGLOB A QN 176 mg/dL Normal 87-352 [facility] Comment on above: Order Comment: Order Date: 01/18/24 Order Info: [id number] - CMP Order Info: - LIPID Order Info: [id number] TIBC Order Info: [id number] FE Order Info: [id number] - DARRYL Performed By: #### L 503.6075, L501.9985, L506.1000, L503.0105, L500.4050, L500.4100, L100.0100, L503.6550, L502.0250, L503.6150 #### [facility] [address] [place], [address] IMMUNOGLOB G QN 789 mg/dL Normal 586-1602 [facility] Comment on above: Order Comment: Order Date: 01/18/24 Order Info: [id number] - CMP Order Info: - LIPID Order Info: [id number] TIBC Order Info: [id number] Order Info: [id number] - DARRYL Performed By: #### L 503.6075, L501.9985, L506.1000, L503.0105, L500.4050, L500.4100, L100.0100, L503.6550, L502.0250, L503.6150 #### [facility] [address] [place], [address] IMMUNOGLOB M QN 598 mg/dL High 26-217 [facility] Comment on above: Order Comment: Order Date: 01/18/24 Order Info: [id number] - CMP Order Info: - LIPID Order Info: [id number] TIBC Order Info: [id number] FE Order Info: [id number] - DARRYL Performed By: #### L 503.6075, L501.9985, L506.1000, L503.0105, L500.4050, L500.4100, L100.0100, L503.6550, L502.0250, L503.6150 #### [facility] [address] [place], [address] Decordova Lambda Light Chainson 10-29-2024 FR KAPPA LT CHN 30.9 mg/L Abnormal 3.3-19.4 [facility] Comment on above: Performed By: #### L 503.6075, L501.9985, L506.1000, L503.0105, L500.4050, L500.4100, L100.0100, L503.6550, L502.0250, L503.6150 #### [facility] [address] [place], [place], [id number] FR LAMBDA LT CH 29.9 mg/L Abnormal 5.7-26.3 [facility] Comment on above: Performed By: #### L 503.6075, L501.9985, L506.1000, L503.0105, L500.4050, L500.4100, L100.0100, L503.6550, L502.0250, L503.6150 #### [facility] [address] [place], [place], [id number] KAPPA/LAMBDA % 1.03 Normal 0.26-1.65 [facility] Comment on above: Result Comment: Perf ormed at: - [facility] [address] [id number] Or[employer] Worker: Han Das PhD, Phone: [phone] Performed By: #### L 503.6075, L501.9985, L506.1000, L503.0105, L500.4050, L500.4100, L100.0100, L503.6550, L502.0250, L503.6150 #### [facility] [address] [place], [place], [id number] L3410.9992on 10-29-2024 [facility]. COMMENT Normal . [facility] Comment on above: Order Comment: Order Date: 01/18/24 Order Info: [id number] - CMP Order Info: [id number] - LIPID Order Info: [id number] - TIBC Order Info: [id number] - FE Order Info: [id number] - DARRYL Result Comment: Perf ormed at: CB - [facility] [address], [place], [place] [id number] Or[employer] Worker: Han Das PhD, Phone: [phone] Performed By: #### L 503.3977, L501.9985, L506.1000, L503.0105, L500.4050, L500.4100, L100.0100, L503.6550, L502.0250, L503.6150 #### [facility] [address] [place], [place], [id number] Absolute lymphocyte countOrd ered By: Kong Vieira on 10-28-2024 Lymphocytes Auto (Unsp spec) [#/Vol] 2.15 10*3/uL 0.83-4.51 [facility] Absolute neutrophil countOrd ered By: Kong Vieira on 10-28-2024 Neutrophils (Bld) [#/Vol] 6.5 10*3/uL 2.0-7.7 [facility] Albumin Elph [Mass/Vol]Order ed By: Kong Vieira on 10-28-2024 Albumin [Mass/Vol] 4.1 g/dL 2.9-4.4 [facility] Anion gap in Serum or Plasma Ordered By: Kong Vieira on 10-28-2024 Anion gap [Moles/Vol] 16 mmol/L High 5-15 [facility] Comment on above: Previous reported re sult: 15 Edited by: CELIO on 10/28/24:1215 AMENDED REPORT 10/28/24 1215 GAP previously reported as: 15 Automated lymphocyte count a s percentage of total leukocytesOrdered By: Kong Vieira on 10-28-2024 Lymphocytes/100 WBC Auto (Unsp spec) 22.7 % 19-41 [facility] BUN/creatinine ratioOrdered By: Kong Vieira on 10-28-2024 Urea nitrogen/Creatinine [Mass ratio] 19.6 mg/mg 10-20 [facility] Comment on above: Previous reported re sult: 20.3 RATIOEdited by: CELIO on 10/28/24:1215 AMENDED REPORT 10/28/24 1215 BUN/CRE previously reported as: 20.3 H RATIO Basophil percentageOrdered B y: Kong Vieira on 10-28-2024 Basophils/100 WBC (Bld) 0.6 % 0-1 [facility] Bilirubin, totalOrdered By: Kong Vieira on 10-28-2024 Bilirubin [Mass/Vol] 0.26 mg/dL 0.00-1.30 [facility] Comment on above: Previous reported re sult: 0.28 mg/dLEdited by: AUTOINS on 10/28/24:1215 AMENDED REPORT 10/28/24 1215 T BILI previously reported as: 0.28 mg/dL CBC W/Diff, Automatedon Absolute Lymph 2.15 X10 3/uL Normal 0.83-4.51 [facility] Comment on above: Performed By: #### L 503.6075, L501.9985, L506.1000, L503.0105, L500.4050, L500.4100, L100.0100, L503.6550, L502.0250, L503.6150 #### [facility] [address] [place], [address] Absolute Neut 6.5 X10 3/uL Normal 2.0-7.7 [facility] Comment on above: Performed By: #### L 503.6075, L501.9985, L506.1000, L503.0105, L500.4050, L500.4100, L100.0100, L503.6550, L502.0250, L503.6150 #### [facility] [address] [place], [address] Basophils/100 WBC (Bld) 0.6 % Normal 0-1 [facility] Comment on above: Performed By: #### L 503.6075, L501.9985, L506.1000, L503.0105, L500.4050, L500.4100, L100.0100, L503.6550, L502.0250, L503.6150 #### [facility] [address] [place], [address] Eosinophils/100 WBC (Bld) 0.4 % Normal 0-5 [facility] Comment on above: Performed By: #### L 503.6075, L501.9985, L506.1000, L503.0105, L500.4050, L500.4100, L100.0100, L503.6550, L502.0250, L503.6150 #### [facility] [address] [place], [address] Erythrocyte distribution width (RBC) [Ratio] 14.5 % Normal 11.6-14.6 [facility] Comment on above: Performed By: #### L 503.6075, L501.9985, L506.1000, L503.0105, L500.4050, L500.4100, L100.0100, L503.6550, L502.0250, L503.6150 #### [facility] [address] [place], [address] Hematocrit (Bld) [Volume fraction] 38.5 % Normal 37-47 [facility] Comment on above: Performed By: #### L 503.6075, L501.9985, L506.1000, L503.0105, L500.4050, L500.4100, L100.0100, L503.6550, L502.0250, L503.6150 #### [facility] [address] [place], [address] Hemoglobin (Bld) [Mass/Vol] 12.6 g/dL Normal 12.0-15.0 [facility] Comment on above: Performed By: #### L 503.6075, L501.9985, L506.1000, L503.0105, L500.4050, L500.4100, L100.0100, L503.6550, L502.0250, L503.6150 #### [facility] [address] [place], [address] IG% 0.400 Normal 0.0-0.9 [facility] Comment on above: Result Comment: IG% - Immature Granulocytes (promyelocytes, myelocytes and metamyelocytes) > 1% indicates that a LEFT SHIFT is Present. Performed By: #### L 503.6075, L501.9985, L506.1000, L503.0105, L500.4050, L500.4100, L100.0100, L503.6550, L502.0250, L503.6150 #### [facility] [address] [place], [address] Lymphocytes/100 WBC (Bld) 22.7 % Normal 19-41 [facility] Comment on above: Performed By: #### L 503.6075, L501.9985, L506.1000, L503.0105, L500.4050, L500.4100, L100.0100, L503.6550, L502.0250, L503.6150 #### [facility] [address] [place], [address] MCH (RBC) [Entitic mass] 28.9 pg Normal 27.0-32.0 [facility] Comment on above: Performed By: #### L 503.6075, L501.9985, L506.1000, L503.0105, L500.4050, L500.4100, L100.0100, L503.6550, L502.0250, L503.6150 #### [facility] [address] [place], [address] MCHC (RBC) [Mass/Vol] 32.7 g/dL Normal 32-36 [facility] Comment on above: Performed By: #### L 503.6075, L501.9985, L506.1000, L503.0105, L500.4050, L500.4100, L100.0100, L503.6550, L502.0250, L503.6150 #### [facility] [address] [place], [address] MCV (RBC) [Entitic vol] 88.3 fL Normal 81-99 [facility] Comment on above: Performed By: #### L 503.6075, L501.9985, L506.1000, L503.0105, L500.4050, L500.4100, L100.0100, L503.6550, L502.0250, L503.6150 #### [facility] [address] [place], [address] Monocytes/100 WBC (Bld) 7.7 % Normal 0-10 [facility] Comment on above: Performed By: #### L 503.6075, L501.9985, L506.1000, L503.0105, L500.4050, L500.4100, L100.0100, L503.6550, L502.0250, L503.6150 #### [facility] [address] [place], [address] Neutrophils/100 WBC (Bld) 68.2 % Normal 47-70 [facility] Comment on above: Performed By: #### L 503.6075, L501.9985, L506.1000, L503.0105, L500.4050, L500.4100, L100.0100, L503.6550, L502.0250, L503.6150 #### [facility] [address] [place], [address] Nucleated RBC (Bld) [#/Vol] 0 10*3/uL Normal 0-5 [facility] Comment on above: Performed By: #### L 503.6075, L501.9985, L506.1000, L503.0105, L500.4050, L500.4100, L100.0100, L503.6550, L502.0250, L503.6150 #### [facility] [address] [place], [address] Platelet mean volume (Bld) [Entitic vol] 10.5 fL Normal 6.2-12.0 [facility] Comment on above: Performed By: #### L 503.6075, L501.9985, L506.1000, L503.0105, L500.4050, L500.4100, L100.0100, L503.6550, L502.0250, L503.6150 #### [facility] [address] [place], [address] Platelets (Bld) [#/Vol] 300 10*3/uL Normal 150-450 [facility] Comment on above: Performed By: #### L 503.6075, L501.9985, L506.1000, L503.0105, L500.4050, L500.4100, L100.0100, L503.6550, L502.0250, L503.6150 #### [facility] [address] [place], [address] RBC (Bld) [#/Vol] 4.36 10*6/uL Normal 4.2-5.4 [facility] Comment on above: Performed By: #### L 503.6075, L501.9985, L506.1000, L503.0105, L500.4050, L500.4100, L100.0100, L503.6550, L502.0250, L503.6150 #### [facility] [address] [place], [address] RDW SD 46.7 fl High 35.1-43.9 [facility] Comment on above: Performed By: #### L 503.6075, L501.9985, L506.1000, L503.0105, L500.4050, L500.4100, L100.0100, L503.6550, L502.0250, L503.6150 #### [facility] [address] [place], [place], [address] WBC (Bld) [#/Vol] 9.5 10*3/uL Normal 4.4-11.0 [facility] Comment on above: Performed By: #### L 503.6075, L501.9985, L506.1000, L503.0105, L500.4050, L500.4100, L100.0100, L503.6550, L502.0250, L503.6150 #### [facility] [address] [place], [place], [id number] CRPon 10-28-2024 C-REACTIVE PROT < 3.00 Normal 0.0-3.0 [facility] Comment on above: Performed By: #### L 503.6075, L501.9985, L506.1000, L503.0105, L500.4050, L500.4100, L100.0100, L503.6550, L502.0250, L503.6150 #### [facility] [address] [place], [place], [phone] Carbon dioxide, total [Moles /volume] in Central venous bloodOrdered By: Kong Vieira on 10-28-2024 CO2 [Moles/Vol] 21.1 mmol/L 21.0-32.0 [facility] Comment on above: Previous reported re sult: 22.7 mmol/LEdited by: CELIO on 10/28/24:1215 AMENDED REPORT 10/28/24 1215 CO2 previously reported as: 22.7 mmol/L Chloride assayOrdered By: Kanwal Vieira on 10-28-2024 Chloride [Moles/Vol] 103 mmol/L 98-108 [facility] Comprehensive Metabolic Prof ilon 10-28-2024 Albumin [Mass/Vol] 4.6 g/dL Normal 3.4-4.8 [facility] Comment on above: Performed By: #### L 503.6075, L501.9985, L506.1000, L503.0105, L500.4050, L500.4100, L100.0100, L503.6550, L502.0250, L503.6150 #### [facility] [address] [place], [place], [id number] Albumin/Globulin [Mass ratio] 1.5 {ratio} Normal 0.9-2.4 [facility] Comment on above: Performed By: #### L 503.6075, L501.9985, L506.1000, L503.0105, L500.4050, L500.4100, L100.0100, L503.6550, L502.0250, L503.6150 #### [facility] [address] [place], [place], [id number] ALK PHOS 41 U/L Normal 35-104 [facility] Comment on above: Result Comment: AMENDED REPORT 10/28/24 1215 ALK P previously reported as: 42 U/L Performed By: #### L 503.6075, L501.9985, L506.1000, L503.0105, L500.4050, L500.4100, L100.0100, L503.6550, L502.0250, L503.6150 #### [facility] [address] [place], [address] ALT [Catalytic activity/Vol] 18 U/L Normal <=34 [facility] Comment on above: Performed By: #### L 503.6075, L501.9985, L506.1000, L503.0105, L500.4050, L500.4100, L100.0100, L503.6550, L502.0250, L503.6150 #### [facility] [address] [place], [place], [id number] AST [Catalytic activity/Vol] 22 U/L Normal <=31 [facility] Comment on above: Performed By: #### L 503.6075, L501.9985, L506.1000, L503.0105, L500.4050, L500.4100, L100.0100, L503.6550, L502.0250, L503.6150 #### [facility] [address] [place], [place], [address] Bilirubin [Mass/Vol] 0.26 mg/dL Normal 0.00-1.30 [facility] Comment on above: Result Comment: AMENDED REPORT 10/28/241214 T BILI previously reported as: 0.28 mg/dL Performed By: #### L 503.6075, L501.9985, L506.1000, L503.0105, L500.4050, L500.4100, L100.0100, L503.6550, L502.0250, L503.6150 #### [facility] [address] [place], [place], [id number] BUN/CRE 19.6 RATIO Normal 10-20 [facility] Comment on above: Result Comment: AMENDED REPORT 10/28/241214 BUN/CRE previously reported as: 20.3 H RATIO Performed By: #### L 503.6075, L501.9985, L506.1000, L503.0105, L500.4050, L500.4100, L100.0100, L503.6550, L502.0250, L503.6150 #### [facility] [address] [place], [place], [address] Calcium [Mass/Vol] 10.0 mg/dL Normal 7.6-11.0 [facility] Comment on above: Result Comment: AMENDED REPORT 10/28/241214 CA previously reported as: 10.2 mg/dL Performed By: #### L 503.6075, L501.9985, L506.1000, L503.0105, L500.4050, L500.4100, L100.0100, L503.6550, L502.0250, L503.6150 #### [facility] [address] [place], [address] Chloride [Moles/Vol] 103 mmol/L Normal 98-108 [facility] Comment on above: Performed By: #### L 503.6075, L501.9985, L506.1000, L503.0105, L500.4050, L500.4100, L100.0100, L503.6550, L502.0250, L503.6150 #### [facility] [address] [place], [address] CO2 [Moles/Vol] 21.1 mmol/L Normal 21.0-32.0 [facility] Comment on above: Result Comment: AMENDED REPORT 10/28/241214 CO2 previously reported as: 22.7 mmol/L Performed By: #### L 503.6075, L501.9985, L506.1000, L503.0105, L500.4050, L500.4100, L100.0100, L503.6550, L502.0250, L503.6150 #### [facility] [address] [place], [place], [phone] (412) Creatinine [Mass/Vol] 0.96 mg/dL Normal 0.70-1.20 [facility] Comment on above: Result Comment: AMENDED REPORT 10/28/241214 CREAT,SERUM previously reported as: 0.92 mg/dL Performed By: #### L 503.6075, L501.9985, L506.1000, L503.0105, L500.4050, L500.4100, L100.0100, L503.6550, L502.0250, L503.6150 #### [facility] [address] [place], [address] GAP 16 High 5-15 [facility] Comment on above: Result Comment: AMENDED REPORT 10/28/241214 GAP previously reported as: 15 Performed By: #### L 503.6075, L501.9985, L506.1000, L503.0105, L500.4050, L500.4100, L100.0100, L503.6550, L502.0250, L503.6150 #### [facility] [address] [place], [address] Globulin (S) [Mass/Vol] 3.1 g/dL Normal 2.2-4.2 [facility] Comment on above: Performed By: #### L 503.6075, L501.9985, L506.1000, L503.0105, L500.4050, L500.4100, L100.0100, L503.6550, L502.0250, L503.6150 #### [facility] [address] [place], [address] Glucose [Mass/Vol] 148 mg/dL High 70-99 [facility] Comment on above: Performed By: #### L 503.6075, L501.9985, L506.1000, L503.0105, L500.4050, L500.4100, L100.0100, L503.6550, L502.0250, L503.6150 #### [facility] [address] [place], [address] Potassium [Moles/Vol] 4.5 mmol/L Normal 3.3-5.1 [facility] Comment on above: Performed By: #### L 503.6075, L501.9985, L506.1000, L503.0105, L500.4050, L500.4100, L100.0100, L503.6550, L502.0250, L503.6150 #### [facility] [address] [place], [address] Sodium [Moles/Vol] 140 mmol/L Normal 133-145 [facility] Comment on above: Performed By: #### L 503.6075, L501.9985, L506.1000, L503.0105, L500.4050, L500.4100, L100.0100, L503.6550, L502.0250, L503.6150 #### [facility] [address] [place], [place], [phone] (667) T PROT 7.7 g/dL Normal 5.9-8.4 [facility] Comment on above: Performed By: #### L 503.6075, L501.9985, L506.1000, L503.0105, L500.4050, L500.4100, L100.0100, L503.6550, L502.0250, L503.6150 #### [facility] [address] [place], [address] Urea nitrogen [Mass/Vol] 19 mg/dL Normal 4-19 [facility] Comment on above: Performed By: #### L 503.6075, L501.9985, L506.1000, L503.0105, L500.4050, L500.4100, L100.0100, L503.6550, L502.0250, L503.6150 #### [facility] [address] [place], [place], [phone] (129) Eosinophil percentageOrdered By: Kong Vieira on 10-28-2024 Eosinophils/100 WBC (Bld) 0.4 % 0-5 [facility] Erythrocyte Sed Rateon 10-28 SED RATE 22 mm/hr Normal 0-30 [facility] Comment on above: Performed By: #### L 503.6075, L501.9985, L506.1000, L503.0105, L500.4050, L500.4100, L100.0100, L503.6550, L502.0250, L503.6150 #### [facility] [address] [place], [place], [id number] Erythrocyte distribution wid th ratioOrdered By: Kong Vieira on 10-28-2024 Erythrocyte distribution width (RBC) [Ratio] 14.5 % 11.6-14.6 [facility] Erythrocyte distribution wid th standard deviationOrdered By: Kong Vieira on 10-28-2024 Erythrocyte distribution width (RBC) [Ratio] 46.7 fl High 35.1-43.9 [facility] Erythrocyte sedimentation ra teOrdered By: Kong Vieira on 10-28-2024 ESR (Bld) [Velocity] 22 mm/h 0-30 [facility] Ferritinon 10-28-2024 Ferritin [Mass/Vol] 21 ng/mL Low 22-378 [facility] Comment on above: Performed By: #### L 503.6075, L501.9985, L506.1000, L503.0105, L500.4050, L500.4100, L100.0100, L503.6550, L502.0250, L503.6150 #### [facility] [address] [place] [address], [address] Gamma glutamyl transferase ( GGT) measurementOrdered By: Kong Vieira on 10-28-2024 Amylase [Catalytic activity/Vol] 18 U/L 0-60 [facility] Comment on above: Performed at: [address] [id number] Director: Han Das PhD, Phone: [phone] Glomerular filtration rate ( GFR) estimation/1.73 sq m using serum, plasma, or whole bOrdered By: Kong Vieira on 10-28-2024 GFR/1.73 sq M.predicted among non-blacks MDRD (S/P/Bld) [Vol rate/Area] 68 mL/min/{1.73_m2} >60 [facility] Comment on above: mL/min/1.73m2 CKD-EP I Creatinine Equation (2020) Hematocrit Auto (Bld) [Volum e fraction]Ordered By: Kong Vieira on 10-28-2024 Hematocrit (Bld) [Volume fraction] 38.5 % 37-47 [facility] Hemoglobin measurementOrdere d By: Kong Vieira on 10-28-2024 Hemoglobin (Bld) [Mass/Vol] 12.6 g/dL 12.0-15.0 [facility] Immature granulocytes/100 WB C Auto (Bld)Ordered By: Kong Vieira on 10-28-2024 Immature granulocytes/100 WBC (Bld) 0.400 % 0.0-0.9 [facility] Comment on above: IG% - Immature Granu locytes (promyelocytes, myelocytes and metamyelocytes) > 1% indicates that a LEFT SHIFT is Present. Interpretation of serum or p lasma protein pattern by immunofixation (narrative resultOrdered By: Kong Vieira on 10-28-2024 Protein Fractions Immunofixation Jose [Interp] Comment: g/dL Not Observed [facility] Comment on above: ASYMMETRICAL GAMMA Iron measurement (mass/mass) Ordered By: Kong Vieira on 10-28-2024 Iron (Unsp spec) [Mass/Mass] 37 ug/dL Low 50-170 [facility] Iron+Iron Binding Capacityon 10-28-2024 Iron [Mass/Vol] 37 ug/dL Low 50-170 [facility] Comment on above: Performed By: #### L 503.6075, L501.9985, L506.1000, L503.0105, L500.4050, L500.4100, L100.0100, L503.6550, L502.0250, L503.6150 #### [facility] [address] [place], [address] UIBC 276 ug/dL Normal 228-428 [facility] Comment on above: Performed By: #### L 503.6075, L501.9985, L506.1000, L503.0105, L500.4050, L500.4100, L100.0100, L503.6550, L502.0250, L503.6150 #### [facility] [address] [place], [address] LDHon 10-28-2024 LDH 158 U/L Normal 84-246 [facility] Comment on above: Order Comment: Order Date: 01/18/24 Order Info: [id number] - CMP Order Info: [id number] - LIPID Order Info: [id number] - TIBC Order Info: [id number] - FE Order Info: [id number] - DARRYL Performed By: #### L 503.6075, L501.9985, L506.1000, L503.0105, L500.4050, L500.4100, L100.0100, L503.6550, L502.0250, L503.6150 #### [facility] [address] [place], [place], [id number] Laboratory - Chemistry and C hemistry - challengeOrdered By: [facility] on 10-28-2024 AST [Catalytic activity/Vol] 22 U/L <32 [facility] Lactate dehydrogenase (LDH) measurementOrdered By: [facility] LDH [Catalytic activity/Vol] 158 U/L 84-246 [facility] MCV (mean corpuscular volume ) determinationOrdered By: Kong Vieira on 10-28-2024 MCV (RBC) [Entitic vol] 88.3 fL 81-99 [facility] Magnesiumon 10-28-2024 Magnesium [Mass/Vol] 1.9 mg/dL Normal 1.5-2.2 [facility] Comment on above: Performed By: #### L 503.6075, L501.9985, L506.1000, L503.0105, L500.4050, L500.4100, L100.0100, L503.6550, L502.0250, L503.6150 #### [facility] [address] [place], [place], [address] Magnesium measurement (mass/ volume)Ordered By: [facility] Magnesium (Unsp spec) [Mass/Vol] 1.9 mg/dL 1.5-2.2 [facility] Mean corpuscular hemoglobin (MCH) determinationOrdered By: Kong Vieira on 10-28-2024 MCH (RBC) [Entitic mass] 28.9 pg 27.0-32.0 [facility] Mean corpuscular hemoglobin concentration (MCHC) determinationOrdered By: Kong Vieira on 10-28-2024 MCHC (RBC) [Mass/Vol] 32.7 g/dL 32-36 [facility] Mean platelet volume determi nationOrdered By: Kong Vieira on 10-28-2024 Platelet mean volume (Bld) [Entitic vol] 10.5 fL 6.2-12.0 [facility] Monocyte percentageOrdered B y: Kong Vieira on 10-28-2024 Monocytes/100 WBC (Bld) 7.7 % 0-10 [facility] Neutrophil percentageOrdered By: Kong Vieira on 10-28-2024 Neutrophils/100 WBC (Bld) 68.2 % 47-70 [facility] No Panel InformationOrdered By: Kong Vieira on 10-28-2024 Addendum Document Comment . [facility] Comment on above: Protein electrophore sis scan will follow via computer,mail, or options advisor delivery. Tissue Transglutaminase IgG Ab <2 U/mL 0-5 [facility] Comment on above: Negative 0 - 5 Weak Positive 6 - 9 Positive >9 Unsaturated Iron Binding Capacity 276 ug/dL 228-428 [facility] Nucleated red blood cell per centageOrdered By: Kong Vieira on 10-28-2024 Nucleated RBC/100 WBC (Bld) [Ratio] 0 % 0-5 [facility] Oncology Visit Reporton Oncology Visit Report [facility] [place] [address] OFFICE VISIT Date of Service: 10/28/24 0900 MR#: [id number] Acct: [id number] Name: CARENMARTHA K Rep #: [id number] : 1955 From: Kong Vieira MD Age/Sex: 69/F Location: [facility] [place] Status: Signed HPI Subjective Date of Service 10/28/24 Chief Complaint Wants evaluation for abnormal serum protein. History of Present Illness 69-year-old woman was found to have high IgM level with Slight increase in IgG serum light chains at [facility]. She does not want to go back to [facility] so comes in for further evaluation. She denies pain, fever, weight loss or night sweats. She has been found to have iron deficiency and currently taking oral iron. She had colonoscopy on 09/04/2024 which showed diverticulosis with stool in the colon. REPLACED BY [facility] Medical History (Updated 10/31/24 @ 14:[address] Kong Vieira MD) Vitamin D deficiency Vitamin B deficiency CKD (chronic kidney disease) Iron deficiency MGUS (monoclonal gammopathy of unknown significance) Wears dentures Wears glasses Cancer Walker as ambulation aid Low iron High cholesterol Back pain History of hiatal hernia Gastric reflux Non-smoker CPAP (continuous positive airway pressure) dependence Sleep apnea History of edema History of echocardiogram Anemia Constipation Diarrhea Hemorrhoids Nausea Abdominal pain Anxiety Heart murmur Arthritis Rash Thyroid disease Fatigue Multinodular goiter Hypercholesterolemia Hypertension Diabetes Surgical History Hx of cataract extraction Hx of colonoscopy Hx of biopsy History of hysterectomy History of Family History Mother Cancer Hypertension Hypercholesterolemia CVA (cerebral vascular accident) Father Heart disease Hypercholesterolemia Hypertension Kidney disease Social History Smoking Status: Never smoker alcohol intake: never substance use type: does not use caffeine: Yes what type of physical activity do you participate in: walking frequency: 1-2 times per week ROS Constitutional Constitutional: Reports systems reviewed and no addt'l complaints, except as documented Eyes Eyes: Reports systems reviewed and no addt'l complaints, except as documented ENT HEENT: Reports systems reviewed and no addt'l complaints, except as documented Cardiovascular Cardiovascular: Reports systems reviewed and no addt'l complaints, except as documented Respiratory/Chest Respiratory/Chest: Reports systems reviewed and no addt'l complaints, except as documented Gastrointestinal Gastrointestinal: Reports systems reviewed and no addt'l complaints, except as documented Genitourinary Genitourinary: Reports systems reviewed and no addt'l complaints, except as documented Musculoskeletal Musculoskeletal: Reports systems reviewed and no addt'l complaints, except as documented Integumentary Integumentary: Reports systems reviewed and no addt'l complaints, except as documented Neurologic Neurologic: Reports systems reviewed and no addt'l complaints, except as documented Psychiatric Psychiatric: Reports systems reviewed and no addt'l complaints, except as documented Endocrine Endocrinology: Reports systems reviewed and no addt'l complaints, except as documented Hematologic/Lymphatic Hematologic/Lymphatic: Reports systems reviewed and no addt'l complaints, except as documented Allergic/Immunologic Allergic/Immunologic: Reports systems reviewed and no addt'l complaints, except as documented Intake Vital Signs 09/04/24 09:30 10/28/24 09:04 10/28/24 09:05 Height 5 ft 3 in 5 ft 3 in 5 ft 3 in Weight: 79.634 kg BMI 31.1 BP 135/74 H Blood Pressure Location Lt brachial Position Sitting Respiration 18 Pulse 73 Pulse Source Monitor Temp 98.7 F Temperature Source Temporal Artery Pulse Oximetry (%) 98 Oxygen Delivery Method room air Intake Is patient in pain?: Yes (back and hip) Pain scale (1-10): 5 Allergies empagliflozin (From Jardiance) Adverse Reaction (Unknown, Verified 10/28/24 09:02) yeast infection Medications ???Medication ???Instructions ???Recorded ???Confirmed ???Type aspirin 81 mg tablet,delayed 81 mg PO DAILY 10/19/18 10/28/24 H istory release (Adult Low Dose Aspirin) omeprazole 40 mg capsule,delayed 40 mg PO DAILY 01/22/19 10/28/24 H istory release calcium carbonate 600 mg PO DAILY 02/05/19 10/28/24 History cholecalciferol (vitamin D3) 50 2,000 unit PO DAILY 02/05/1910/28 History mcg (2,000 unit) capsule multivitamin with minerals 1 ea PO DAILY 02/05/19 10/28/24 Hi story dapagliflozin (more content not included)... Normal [facility] Phosphoruson 10-28-2024 Phosphate [Mass/Vol] 3.4 mg/dL Normal 2.7-4.5 [facility] Comment on above: Performed By: #### L 503.6075, L501.9985, L506.1000, L503.0105, L500.4050, L500.4100, L100.0100, L503.6550, L502.0250, L503.6150 #### [facility] [address] [place], [address] Platelet countOrdered By: Kanwal Vieira on 10-28-2024 Platelets (Bld) [#/Vol] 300 10*3/uL 150-450 [facility] Potassium measurement (mass/ volume)Ordered By: Kong Vieira on 10-28-2024 Potassium (Unsp spec) [Mass/Vol] 4.5 mmol/L 3.3-5.1 [facility] RBC Auto (Bld) [#/Vol]Ordere d By: Kong Vieira on 10-28-2024 RBC (Bld) [#/Vol] 4.36 10*6/uL 4.2-5.4 [facility] Retic Panelon 10-28-2024 IM RET FRACTION 13.60 Normal 3.00-15.90 [facility] Comment on above: Performed By: #### L 503.6075, L501.9985, L506.1000, L503.0105, L500.4050, L500.4100, L100.0100, L503.6550, L502.0250, L503.6150 #### [facility] [address] [place], [place], [id number] RET-HE 33.2 pg Normal 30-35 [facility] Comment on above: Performed By: #### L 503.6075, L501.9985, L506.1000, L503.0105, L500.4050, L500.4100, L100.0100, L503.6550, L502.0250, L503.6150 #### [facility] [address] [place], [address] Retic Count 1.75 High 0.5-1.5 [facility] Comment on above: Performed By: #### L 503.6075, L501.9985, L506.1000, L503.0105, L500.4050, L500.4100, L100.0100, L503.6550, L502.0250, L503.6150 #### [facility] [address] [place], [address] Reticulocyte hemoglobin equi valent (RET-He) measurementOrdered By: Kong Vieira on 10-28-2024 Hemoglobin (Reticulocytes) [Entitic mass] 33.2 pg 30-35 [facility] Reticulocytes Auto (Bld) [#/ Vol]Ordered By: Kong Vieira on 10-28-2024 Reticulocytes/100 RBC (Bld) 1.75 % High 0.5-1.5 [facility] Serum creatinine measurement (mass/volume)Ordered By: Kong Vieira on 10-28-2024 Creatinine [Mass/Vol] 0.96 mg/dL 0.70-1.20 [facility] Comment on above: Previous reported re sult: 0.92 mg/dLEdited by: AUTOINBrown on 10/28/24:1215 AMENDED REPORT 10/28/24 1215 CREAT,SERUM previously reported as: 0.92 mg/dL Serum globulin measurementOr dered By: Kong Vieira on 10-28-2024 Globulin (S) [Mass/Vol] 3.1 g/dL 2.2-4.2 [facility] Serum globulin measurement ( mass/volume)Ordered By: Kong Vieira on 10-28-2024 Globulin (S) [Mass/Vol] 3.3 g/dL 2.2-3.9 [facility] Serum glucose measurement (m ass/volume)Ordered By: Kong Vieira on 10-28-2024 Glucose [Mass/Vol] 148 mg/dL High 70-99 [facility] Serum immunoglobulin kappa l ight chains/immunoglobulin lambda light chains mass ratioOrdered By: Kong Vieira on 10-28-2024 Immunoglobulin light chains.kappa/Immunoglobul in light chains.lambda (S) [Mass ratio] 1.03 0.26-1.65 [facility] Comment on above: Performed at: - [place] [id number] Director: Han Das PhD, Phone: [phone] Serum or plasma C reactive p rotein measurement (mass/volume)Ordered By: Kong Vieira on 10-28-2024 CRP [Mass/Vol] mg/L 0.0-3.0 [facility] Serum or plasma IgA measurem ent (mass/volume)Ordered By: Knog Vieira on 10-28-2024 IgA [Mass/Vol] 176 mg/dL 87-352 [facility] IgA [Mass/Vol] 178 mg/dL 87-352 [facility] Serum or plasma IgG measurem ent (mass/volume)Ordered By: Kong Vieira on 10-28-2024 IgG [Mass/Vol] 789 mg/dL 586-1602 [facility] IgG [Mass/Vol] 772 mg/dL 586-1602 [facility] Serum or plasma alanine zhang otransferase (ALT) measurementOrdered By: Kong Vieira on 10-28-2024 ALT [Catalytic activity/Vol] 18 U/L <35 [facility] Serum or plasma albumin charlotte urement (mass/volume)Ordered By: Kong Vieira on 10-28-2024 Albumin [Mass/Vol] 4.6 g/dL 3.4-4.8 [facility] Serum or plasma albumin/glob ulin mass ratioOrdered By: Kong Vieira on 10-28-2024 Albumin/Globulin [Mass ratio] 1.5 {ratio} 0.9-2.4 [facility] Serum or plasma alkaline diana sphatase measurementOrdered By: Kong Vieira on 10-28-2024 ALP [Catalytic activity/Vol] 41 U/L 35-104 [facility] Comment on above: Previous reported re sult: 42 U/LEdited by: CELIO on 10/28/24:1215 AMENDED REPORT 10/28/24 1215 ALK P previously reported as: 42 U/L Serum or plasma alpha 1 glob ulin measurement by electrophoresis (mass/volume)Ordered By: Kong Vieira on 10-28-2024 Alpha 1 globulin Elph [Mass/Vol] 0.2 g/dL 0.0-0.4 [facility] Alpha 1 globulin Elph [Mass/Vol] 0.9 g/dL 0.4-1.0 [facility] Serum or plasma beta globuli n measurement by electrophoresis (mass/volume)Ordered By: Kong Vieira on 10-28-2024 Beta globulin Elph [Mass/Vol] 1.0 g/dL 0.7-1.3 [facility] Serum or plasma calcium charlotte urement (mass/volume)Ordered By: Kong Vieira on 06-09-2025 Calcium [Mass/Vol] 10.0 mg/dL 7.6-11.0 [facility] Comment on above: Previous reported re sult: 10.2 mg/dLEdited by: CELIO on 10/28/24:1215 AMENDED REPORT 10/28/24 1215 CA previously reported as: 10.2 mg/dL Serum or plasma ferritin mitzy surement (mass/volume)Ordered By: Kong Vieira on 10-28-2024 Ferritin [Mass/Vol] 21 ng/mL Low 22-378 [facility] Serum or plasma gamma globul in measurement by electrophoresis (mass/volume)Ordered By: Kong Vieira on 10-28-2024 Gamma globulin Elph [Mass/Vol] 1.1 g/dL 0.4-1.8 [facility] Serum or plasma immunoelectr ophoresis interpretation (nominal result)Ordered By: Kong Vieira on 10-28-2024 Interpretation IEP [Interp] Comment: . [facility] Comment on above: Presence of monoclon al protein is unclear at this time. Suggestrepeat in 3 to 6 months if clinically indicated. Serum or plasma immunoglobul in kappa light chains measurement (mass/volume)Ordered By: Kong Vieira on 10-28-2024 Immunoglobulin light chains.kappa [Mass/Vol] 30.9 mg/L High 3.3-19.4 [facility] Serum or plasma iron saturat ion measurement (mass fraction)Ordered By: Kong Vieira on 10-28-2024 Iron saturation [Mass fraction] 11.8 % Low 13-59 [facility] Comment on above: Previous reported re sult: 12.0 %Edited by: CELIO on 10/28/24:1218 AMENDED REPORT 10/28/24 1218 IRON SATURATION previously reported as: 12.0 L % Serum or plasma protein charlotte urement (mass/volume)Ordered By: Kong Vieira on 10-28-2024 Protein [Mass/Vol] 7.4 g/dL 6.0-8.5 [facility] Serum or plasma urea nitroge n measurement (mass/volume)Ordered By: Kong Vieira on 10-28-2024 Urea nitrogen [Mass/Vol] 19 mg/dL 4-19 [facility] Serum or plasma uric acid me asurement (mass/volume)Ordered By: Kong Vieira on 10-28-2024 Urate [Mass/Vol] 3.8 mg/dL 2.6-6.0 [facility] Comment on above: The drugs N-Acetylcy steine and Metamizole may falsely depress this assay. Serum tissue transglutaminas e (tTG) IgA antibody assay (units/volume)Ordered By: Kong Vieira on 10-28-2024 tTG IgA Qn (S) <2 U/mL 0-3 [facility] Comment on above: Negative 0 - 3 Weak Positive 4 - 10 Positive >10 Tissue Transglutaminase (tTG) has been identified as the endomysial antigen. Studies have demonstr- ated that endomysial IgA antibodies have over 99% specificity for gluten sensitive enteropathy. Sodium levelOrdered By: Chaim Vieira on 10-28-2024 Sodium [Moles/Vol] 140 mmol/L 133-145 [facility] Total proteinOrdered By: Temo Vieira on 10-28-2024 Protein [Mass/Vol] 7.7 g/dL 5.9-8.4 [facility] Uric Acidon 10-28-2024 URIC 3.8 mg/dL Normal 2.6-6.0 [facility] Comment on above: Result Comment: The drugs N-Acetylcysteine and Metamizole may falsely depress this assay. Performed By: #### L 503.6075, L501.9985, L506.1000, L503.0105, L500.4050, L500.4100, L100.0100, L503.6550, L502.0250, L503.6150 #### [facility] [address] [place], [address] Vitamin B12on 10-28-2024 Cobalamin (Vitamin B12) [Mass/Vol] 622 pg/mL Normal 180-914 [facility] Comment on above: Performed By: #### L 503.6075, L501.9985, L506.1000, L503.0105, L500.4050, L500.4100, L100.0100, L503.6550, L502.0250, L503.6150 #### [facility] [address] [place], [address] Vitamin B12 ser/plasOrdered By: Kong Vieira on 10-28-2024 Cobalamin (Vitamin B12) [Mass/Vol] 622 pg/mL 180-914 [facility] White blood cell (WBC) count Ordered By: Kong Vieira on 10-28-2024 WBC (Bld) [#/Vol] 9.5 10*3/uL 4.4-11.0 [facility] Hips B/L min 2 views w/ Pelv jennifer 10-25-2024 Hips B/L min 2 views w/ Pelvis [facility] [address] [place] [address] Hips B/L min 2 views w/ Pelvis MR#: [id number] Acct: [id number] Name: MARTHA FABIAN Rep #: [id number] : 1955 F 69 From: Jaydon Zarate MD PCP: Dr. Scott Steele MD Status: REG CLI Study: Hips B/L min 2 views w/ Pelvis Date of Exam: 0 10/25/24 Exam# [id number] Ordering Dr: Scott Steele MD EXAM: XR Right Hip With Pelvis When Performed, 2 or 3 Views CLINICAL INDICATION: PAIN TECHNIQUE: Two or three views of the right hip with pelvis when performed. COMPARISON: No relevant prior studies available. FINDINGS: BONES/JOINTS: Severe degenerative changes of the right hip joint with suggestion of avascular necrosis. No acute fracture. No dislocation. SOFT TISSUES: Soft tissue swelling. RAD/Hips B/L min 2 views w/ Pelvis IMPRESSION: Severe degenerative changes of the right hip joint with suggestion of avascular necrosis. Reading Location: [id number] CC: Dr. Scott Steele MD Brush Maker Machine: Signed Normal [facility] Lumbar Spine 2 or 3 Viewson 10-25-2024 Lumbar Spine 2 or 3 Views [facility] Services [address] [place] [address] Lumbar Spine 2 or 3 Views MR#: [id number] Acct: [id number] Name: MARTHA FABIAN Rep #: [id number] : 1955 F 69 From: Jaydon Zarate MD PCP: Dr. Scott Steele MD Status: REG CLI Study: Lumbar Spine 2 or 3 Views Date of Exam: Exam# [id number] Ordering Dr: Scott Steele MD EXAM: XR Lumbosacral Spine, 2 or 3 Views CLINICAL INDICATION: PAIN TECHNIQUE: Frontal and lateral views of the lumbar spine and sacrum. COMPARISON: No relevant prior studies available. FINDINGS: VERTEBRAE: Mild multilevel endplate degenerative changes of L1-S1. Mild facet arthropathy of L3- S1. No acute fracture. Normal alignment. SACRUM/COCCYX: Unremarkable as visualized. No acute fracture. DISC SPACES: No acute findings. No significant narrowing. SOFT TISSUES: Unremarkable. RAD/Lumbar Spine 2 or 3 Views IMPRESSION: Degenerative changes as above. Reading Location: [id number] CC: Dr. Scott Steele MD Brush Maker Machine: Signed Normal [facility] Vitamin D 1,25-Dihydroxyon 0 10-12-2024 VIT D 1,25 DIHY 49.8 pg/mL Normal 24.8-81.5 [facility] Comment on above: Result Comment: Perf ormed at: - [facility] [id number] Ornamental Metal Worker: Melissa Benavides MD, Phone: [phone] Performed By: #### L 503.1294, L501.9985, L506.1000, L503.0105, L500.4050, L500.4100, L100.0100, L503.6550, L502.0250, L503.6150 #### [facility] [address] [place], [address] Anion gap in Serum or Plasma Ordered By: Scott Steele on 10-09-2024 Anion gap [Moles/Vol] 14 mmol/L 10-03 [facility] BUN/creatinine ratioOrdered By: Scott Steele on 10-09-2024 Urea nitrogen/Creatinine [Mass ratio] 19.5 mg/mg 10-20 [facility] Bilirubin, totalOrdered By: Scott Steele on 10-09-2024 Bilirubin [Mass/Vol] 0.37 mg/dL 0.00-1.30 [facility] Calculated very low density lipoprotein (VLDL) cholesterol measurementOrdered By: Scott Steele on 10-09-2024 Calculated very low density lipoprotein (VLDL) cholesterol measurement 21 mg/dL 5-40 [facility] Carbon dioxide, total [Moles /volume] in Central venous bloodOrdered By: Scott Steele on 10-09-2024 CO2 [Moles/Vol] 25.7 mmol/L 21.0-32.0 [facility] Chloride assayOrdered By: Kanwal Steele on 10-09-2024 Chloride [Moles/Vol] 102 mmol/L 98-108 [facility] Comprehensive Metabolic Prof ilon 10-09-2024 Albumin [Mass/Vol] 4.9 g/dL High 3.4-4.8 [facility] Comment on above: Order Comment: Order Date: 01/18/24 Order Info: [id number] - CMP Order Info: [id number] - LIPID Order Info: 2499-11 TIBC Order Info: 2497-08 Order Info: [id number] - DARRYL Performed By: #### L 503.6075, L501.9985, L506.1000, L503.0105, L500.4050, L500.4100, L100.0100, L503.6550, L502.0250, L503.6150 #### [facility] [address] [facility] [place], [place], [id number] Albumin/Globulin [Mass ratio] 1.4 {ratio} Normal 0.9-2.4 [facility] Comment on above: Order Comment: Order Date: 01/18/24 Order Info: [id number] - CMP Order Info: [id number] - LIPID Order Info: 2499-11 - TIBC Order Info: 2497-08 - FE Order Info: 2275-08 - DARRYL Performed By: #### L 503.6075, L501.9985, L506.1000, L503.0105, L500.4050, L500.4100, L100.0100, L503.6550, L502.0250, L503.6150 #### [facility] [address] [place], [address] ALK PHOS 42 U/L Normal 35-104 [facility] Comment on above: Order Comment: Order Date: 01/18/24 Order Info: [id number] - CMP Order Info: - LIPID Order Info: 2499-11 TIBC Order Info: 2497-08 Order Info: [id number] - DARRYL Performed By: #### L 503.6075, L501.9985, L506.1000, L503.0105, L500.4050, L500.4100, L100.0100, L503.6550, L502.0250, L503.6150 #### [facility] [address] [place], [address] ALT [Catalytic activity/Vol] 18 U/L Normal <=34 [facility] Comment on above: Order Comment: Order Date: 01/18/24 Order Info: 785-05 - CMP Order Info: - LIPID Order Info: 2499-11 TIBC Order Info: 2497-08 Order Info: 2275-08 - DARRYL Performed By: #### L 503.6075, L501.9985, L506.1000, L503.0105, L500.4050, L500.4100, L100.0100, L503.6550, L502.0250, L503.6150 #### [facility] [address] [place], [address] AST [Catalytic activity/Vol] 23 U/L Normal <=31 [facility] Comment on above: Order Comment: Order Date: 01/18/24 Order Info: 785-05 - CMP Order Info: - LIPID Order Info: 2499-11 TIBC Order Info: 2497-08 Order Info: [id number] - DARRYL Performed By: #### L 503.6075, L501.9985, L506.1000, L503.0105, L500.4050, L500.4100, L100.0100, L503.6550, L502.0250, L503.6150 #### [facility] [address] [place], [place], [address] Bilirubin [Mass/Vol] 0.37 mg/dL Normal 0.00-1.30 [facility] Comment on above: Order Comment: Order Date: 01/18/24 Order Info: 0786 - CMP Order Info: [id number] - LIPID Order Info: 2499-11 TIBC Order Info: 2497-08 Order Info: [id number] - DARRYL Performed By: #### L 503.6075, L501.9985, L506.1000, L503.0105, L500.4050, L500.4100, L100.0100, L503.6550, L502.0250, L503.6150 #### [facility] [address] [place], [address] (237) BUN/CRE 19.5 RATIO Normal 10-20 [facility] Comment on above: Order Comment: Order Date: 01/18/24 Order Info: 0786- - CMP Order Info: [id number] - LIPID Order Info: 2499-11 TIBC Order Info: 2497-08 Order Info: 2275-08 - DARRYL Performed By: #### L 503.6075, L501.9985, L506.1000, L503.0105, L500.4050, L500.4100, L100.0100, L503.6550, L502.0250, L503.6150 #### [facility] [address] [place], [address] Calcium [Mass/Vol] 10.2 mg/dL Normal 7.6-11.0 [facility] Comment on above: Order Comment: Order Date: 01/18/24 Order Info: 785-05 - CMP Order Info: - LIPID Order Info: 2499-11 TIBC Order Info: 2497-08 FE Order Info: 2275-08 - DARRYL Performed By: #### L 503.6075, L501.9985, L506.1000, L503.0105, L500.4050, L500.4100, L100.0100, L503.6550, L502.0250, L503.6150 #### [facility] [address] [place], [place], [id number] (416) Chloride [Moles/Vol] 102 mmol/L Normal 98-108 [facility] Comment on above: Order Comment: Order Date: 01/18/24 Order Info: 785-05 - CMP Order Info: - LIPID Order Info: 2499-11 TIBC Order Info: 2497-08 FE Order Info: 2275-08 - DARRYL Performed By: #### L 503.6075, L501.9985, L506.1000, L503.0105, L500.4050, L500.4100, L100.0100, L503.6550, L502.0250, L503.6150 #### [facility] [address] [place], [place], [id number] (517) CO2 [Moles/Vol] 25.7 mmol/L Normal 21.0-32.0 [facility] Comment on above: Order Comment: Order Date: 01/18/24 Order Info: 785-05 - CMP Order Info: - LIPID Order Info: 2499-11 - TIBC Order Info: 2497-08 - FE Order Info: 2275-08 - DARRYL Performed By: #### L 503.6075, L501.9985, L506.1000, L503.0105, L500.4050, L500.4100, L100.0100, L503.6550, L502.0250, L503.6150 #### [facility] [address] [place], [place], [id number] (940) Creatinine [Mass/Vol] 0.86 mg/dL Normal 0.70-1.20 [facility] Comment on above: Order Comment: Order Date: 01/18/24 Order Info: 785-05 - CMP Order Info: - LIPID Order Info: 2499-11 - TIBC Order Info: 2497-08 Order Info: 2275-08 - DARRYL Performed By: #### L 503.6075, L501.9985, L506.1000, L503.0105, L500.4050, L500.4100, L100.0100, L503.6550, L502.0250, L503.6150 #### [facility] [address] [place], [address] GAP 14 Normal 5-15 [facility] Comment on above: Order Comment: Order Date: 01/18/24 Order Info: 785-05 - CMP Order Info: - LIPID Order Info: 2499-11 TIBC Order Info: 2497-08 Order Info: [id number] - DARRYL Performed By: #### L 503.6075, L501.9985, L506.1000, L503.0105, L500.4050, L500.4100, L100.0100, L503.6550, L502.0250, L503.6150 #### [facility] [address] [place], [address] GFR/1.73 sq M.predicted among non-blacks MDRD (S/P/Bld) [Vol rate/Area] 74 mL/min/{1.73_m2} Normal >60 [facility] Comment on above: Order Comment: Order Date: 01/18/24 Order Info: 785-05 - CMP Order Info: - LIPID Order Info: 2499-11 TIBC Order Info: 2497-08 FE Order Info: 2275-08 - DARRYL Result Comment: mL/m in/1.73m2 CKD-EPI Creatinine Equation (2020) Performed By: #### L 503.6075, L501.9985, L506.1000, L503.0105, L500.4050, L500.4100, L100.0100, L503.6550, L502.0250, L503.6150 #### [facility] [address] [place], [address] Globulin (S) [Mass/Vol] 3.4 g/dL Normal 2.2-4.2 [facility] Comment on above: Order Comment: Order Date: 01/18/24 Order Info: 785- - CMP Order Info: - LIPID Order Info: 2499-11 - TIBC Order Info: 2497-08 Order Info: 2275-08 - DARRYL Performed By: #### L 503.6075, L501.9985, L506.1000, L503.0105, L500.4050, L500.4100, L100.0100, L503.6550, L502.0250, L503.6150 #### [facility] [address] [place], [address] Glucose [Mass/Vol] 99 mg/dL Normal 70-99 [facility] Comment on above: Order Comment: Order Date: 01/18/24 Order Info: 785-05 - CMP Order Info: - LIPID Order Info: 2499-11 TIBC Order Info: 2497-08 Order Info: [id number] - DARRYL Performed By: #### L 503.6075, L501.9985, L506.1000, L503.0105, L500.4050, L500.4100, L100.0100, L503.6550, L502.0250, L503.6150 #### [facility] [address] [place], [address] Potassium [Moles/Vol] 4.3 mmol/L Normal 3.3-5.1 [facility] Comment on above: Order Comment: Order Date: 01/18/24 Order Info: [id number] - CMP Order Info: - LIPID Order Info: [id number] - TIBC Order Info: [id number] Order Info: [id number] - DARRYL Performed By: #### L 503.6075, L501.9985, L506.1000, L503.0105, L500.4050, L500.4100, L100.0100, L503.6550, L502.0250, L503.6150 #### [facility] [address] [place], [place], [id number] Sodium [Moles/Vol] 141 mmol/L Normal 133-145 [facility] Comment on above: Order Comment: Order Date: 01/18/24 Order Info: [id number] - CMP Order Info: [id number] - LIPID Order Info: [id number] Order Info: [id number] Order Info: [id number] - DARRYL Performed By: #### L 503.6075, L501.9985, L506.1000, L503.0105, L500.4050, L500.4100, L100.0100, L503.6550, L502.0250, L503.6150 #### [facility] [address] [place], [place], [id number] T PROT 8.3 g/dL Normal 5.9-8.4 [facility] Comment on above: Order Comment: Order Date: 01/18/24 Order Info: [id number] - CMP Order Info: [id number] - LIPID Order Info: [id number] Order Info: [id number] Order Info: [id number] - DARRYL Performed By: #### L 503.6075, L501.9985, L506.1000, L503.0105, L500.4050, L500.4100, L100.0100, L503.6550, L502.0250, L503.6150 #### [facility] [address] [place], [place], [id number] Urea nitrogen [Mass/Vol] 17 mg/dL Normal 4-19 [facility] Comment on above: Order Comment: Order Date: 01/18/24 Order Info: [id number] - CMP Order Info: [id number] - LIPID Order Info: [id number] - TIBC Order Info: [id number] - FE Order Info: [id number] - DARRYL Performed By: #### L 503.6075, L501.9985, L506.1000, L503.0105, L500.4050, L500.4100, L100.0100, L503.6550, L502.0250, L503.6150 #### [facility] [address] [place], [place], [id number] Ferritinon 10-09-2024 Ferritin [Mass/Vol] 20 ng/mL Low 22-378 [facility] Comment on above: Performed By: #### L 503.6075, L501.9985, L506.1000, L503.0105, L500.4050, L500.4100, L100.0100, L503.6550, L502.0250, L503.6150 #### [facility] [address] [place], [place], [id number] Glomerular filtration rate ( GFR) estimation/1.73 sq m using serum, plasma, or whole bOrdered By: Scott Steele on 10-09-2024 GFR/1.73 sq M.predicted among non-blacks MDRD (S/P/Bld) [Vol rate/Area] 74 mL/min/{1.73_m2} >60 [facility] Comment on above: mL/min/1.73m2 CKD-EP I Creatinine Equation (2020) Hemoglobin A1con 10-09-2024 HbA1c (Bld) [Mass fraction] 6.8 % High <=5.6 [facility] Comment on above: Result Comment: Norm al < 5.7 % Prediabetic 5.7 - 6.4 % Diabetic >or= 6.5 % Please note range changes. Performed By: #### L 503.6075, L501.9985, L506.1000, L503.0105, L500.4050, L500.4100, L100.0100, L503.6550, L502.0250, L503.6150 #### [facility] [address] [place], [address] Hemoglobin A1c percentageOrd ered By: Scott Steele on 10-09-2024 HbA1c (Bld) [Mass fraction] 6.8 % High <5.7 [facility] Comment on above: Normal < 5.7 % Predi abetic 5.7 - 6.4 % Diabetic >or= 6.5 % Please note range changes. Iron measurement (mass/mass) Ordered By: Scott Steele on 10-09-2024 Iron (Unsp spec) [Mass/Mass] 47 ug/dL Low 50-170 [facility] Iron+Iron Binding Capacityon 10-09-2024 Iron [Mass/Vol] 47 ug/dL Low 50-170 [facility] Comment on above: Order Comment: Order Date: 01/18/24 Order Info: [id number] - MIACRE Performed By: #### L 503.6075, L501.9985, L506.1000, L503.0105, L500.4050, L500.4100, L100.0100, L503.6550, L502.0250, L503.6150 #### [facility] [address] [place], [address] IRON SATURATION 14.0 Normal 13-59 [facility] Comment on above: Order Comment: Order Date: 01/18/24 Order Info: [id number] - MIACRE Performed By: #### L 503.6075, L501.9985, L506.1000, L503.0105, L500.4050, L500.4100, L100.0100, L503.6550, L502.0250, L503.6150 #### [facility] [address] [place], [address] TIBC 335 ug/dL Normal 250-450 [facility] Comment on above: Order Comment: Order Date: 01/18/24 Order Info: [id number] - MIACRE Performed By: #### L 503.6075, L501.9985, L506.1000, L503.0105, L500.4050, L500.4100, L100.0100, L503.6550, L502.0250, L503.6150 #### [facility] [address] [place], [address] UIBC 288 ug/dL Normal 228-428 [facility] Comment on above: Order Comment: Order Date: 01/18/24 Order Info: [id number] - MIACRE Performed By: #### L 503.6075, L501.9985, L506.1000, L503.0105, L500.4050, L500.4100, L100.0100, L503.6550, L502.0250, L503.6150 #### [facility] [address] [place], [address] LDL calc ser/plasOrdered By: Scott Steele on 10-09-2024 Cholesterol in LDL [Mass/Vol] 72 mg/dL [facility] Comment on above: Skhnfokrdk=305-729 m g/dL & Higher Udcp=537 mg/dL or greater Laboratory - Chemistry and C hemistry - challengeOrdered By: Scott Steele on 10-09-2024 AST [Catalytic activity/Vol] 23 U/L <32 [facility] Lipid Profileon 10-09-2024 CHOL:HDL 2.45 Normal [facility] Comment on above: Performed By: #### L 503.6075, L501.9985, L506.1000, L503.0105, L500.4050, L500.4100, L100.0100, L503.6550, L502.0250, L503.6150 #### [facility] [address] [place], [place], [id number] Cholesterol [Mass/Vol] 158 mg/dL Normal <=200 [facility] Comment on above: Result Comment: Chol esterol level, Desirable <200 mg/dL Borderline high cholesterol 200-239 mg/dL High cholesterol >=240 mg/dL Recommendations of the NCEP Adult Treatment Panel for the following risk-cutoff thresholds for the [place] population. Performed By: #### L 503.6075, L501.9985, L506.1000, L503.0105, L500.4050, L500.4100, L100.0100, L503.6550, L502.0250, L503.6150 #### [facility] [address] [place], [address] Cholesterol in HDL [Mass/Vol] 64 mg/dL Normal [facility] Comment on above: Result Comment: Mehreen onal Cholesterol Education Program (NCEP) guidelines: <40 mg/dL: Low HDL-cholesterol (major risk factor for CHD) >= 60 mg/dL: High HDL-cholesterol (negative risk factor for CHD) HDL-cholesterol is affected by a number of factors, e.g. smoking, exercise, hormones, sex and age. Performed By: #### L 503.6075, L501.9985, L506.1000, L503.0105, L500.4050, L500.4100, L100.0100, L503.6550, L502.0250, L503.6150 #### [facility] [address] [place], [address] Cholesterol in LDL [Mass/Vol] 72 mg/dL Normal [facility] Comment on above: Result Comment: Bord ogqnvx=205-271 mg/dL Higher Aouu=207 mg/dL or greater Performed By: #### L 503.6075, L501.9985, L506.1000, L503.0105, L500.4050, L500.4100, L100.0100, L503.6550, L502.0250, L503.6150 #### [facility] [address] [place], [address] Cholesterol in VLDL [Mass/Vol] 21 mg/dL Normal 5-40 [facility] Comment on above: Performed By: #### L 503.6075, L501.9985, L506.1000, L503.0105, L500.4050, L500.4100, L100.0100, L503.6550, L502.0250, L503.6150 #### [facility] [address] [place], [address] Triglyceride [Mass/Vol] 106 mg/dL Normal [facility] Comment on above: Result Comment: The drugs N-Acetylcysteine and Metamizole may falsely depress this assay. Normal range: <150 mg/dL Borderline High: 150-199 mg/dL High: 200-499 mg/dL Very High: >500 mg/dL Performed By: #### L 503.6075, L501.9985, L506.1000, L503.0105, L500.4050, L500.4100, L100.0100, L503.6550, L502.0250, L503.6150 #### [facility] [address] [place], [address] Microalb:Creat Ratio,Random URon 10-09-2024 Creatinine [Mass/Vol] 33.70 mg/dL Normal 28.00-217.00 [facility] Comment on above: Performed By: #### L 503.6075, L501.9985, L506.1000, L503.0105, L500.4050, L500.4100, L100.0100, L503.6550, L502.0250, L503.6150 #### [facility] [address] [place], [place], [id number] MALB:CREAT UNABLE TO CALCULATE Normal [facility] Comment on above: Performed By: #### L 503.6075, L501.9985, L506.1000, L503.0105, L500.4050, L500.4100, L100.0100, L503.6550, L502.0250, L503.6150 #### [facility] [address] [place], [place], [id number] MICROALBUMIN,UR < 12.0 Normal NO RANGE EST. [facility] Comment on above: Performed By: #### L 503.6075, L501.9985, L506.1000, L503.0105, L500.4050, L500.4100, L100.0100, L503.6550, L502.0250, L503.6150 #### [facility] [place], [address] Microalbumin/creat ratio urO rdered By: Scott Steele on 10-09-2024 Urine microalbumin/creatinine ratio measurement UNABLE TO CALCULATE mg/g CRE [facility] No Panel InformationOrdered By: Scott Steele on 10-09-2024 Unsaturated Iron Binding Capacity 288 ug/dL 228-428 [facility] Potassium measurement (mass/ volume)Ordered By: Scott Steele on 10-09-2024 Potassium (Unsp spec) [Mass/Vol] 4.3 mmol/L 3.3-5.1 [facility] Random urine creatinine charlotte urement (mass/volume)Ordered By: Scott Steele on 10-09-2024 Creatinine Unsp time (U) [Mass/Vol] 33.70 mg/dL 28.00-217.00 [facility] Screening total cholesterol/ high density lipoprotein (HDL) cholesterol ratioOrdered By: Scott Steele on 10-09-2024 Cholesterol.total/Cholest anila in HDL [Mass ratio] 2.45 {ratio} [facility] Serum creatinine measurement (mass/volume)Ordered By: Scott Steele on 10-09-2024 Creatinine [Mass/Vol] 0.86 mg/dL 0.70-1.20 [facility] Serum globulin measurementOr dered By: Scott Steele on 10-09-2024 Globulin (S) [Mass/Vol] 3.4 g/dL 2.2-4.2 [facility] Serum glucose measurement (m ass/volume)Ordered By: Scott Steele on 10-09-2024 Glucose [Mass/Vol] 99 mg/dL 70-99 [facility] Serum or plasma alanine zhang otransferase (ALT) measurementOrdered By: Scott Steele on 10-09-2024 ALT [Catalytic activity/Vol] 18 U/L <35 [facility] Serum or plasma albumin charlotte urement (mass/volume)Ordered By: Scott Steele on 10-09-2024 Albumin [Mass/Vol] 4.9 g/dL High 3.4-4.8 [facility] Serum or plasma albumin/glob ulin mass ratioOrdered By: Scott Steele on 10-09-2024 Albumin/Globulin [Mass ratio] 1.4 {ratio} 0.9-2.4 [facility] Serum or plasma alkaline diana sphatase measurementOrdered By: Scott Steele on 10-09-2024 ALP [Catalytic activity/Vol] 42 U/L 35-104 [facility] Serum or plasma calcitriol m easurement (mass/volume)Ordered By: Scott Steele on 10-09-2024 1,25-dihydroxyvitamin D3 [Mass/Vol] 49.8 pg/mL 24.8-81.5 [facility] Comment on above: Performed at: [address] [id number] Director: Melissa Benavides MD, Phone: [phone] Serum or plasma calcium charlotte urement (mass/volume)Ordered By: Scott Steele on 10-09-2024 Calcium [Mass/Vol] 10.2 mg/dL 7.6-11.0 [facility] Serum or plasma cholesterol in HDL measurement (mass/volume)Ordered By: Scott Steele on 10-09-2024 Cholesterol in HDL [Mass/Vol] 64 mg/dL >40 [facility] Comment on above: National Cholesterol Education Program (NCEP) guidelines:<40 mg/dL: Low HDL-cholesterol (major risk factor for CHD)>= 60 mg/dL: High HDL-cholesterol (negative risk factor for CHD)HDL-cholesterol is affected by a number of factors, e.g. smoking, exercise, hormones, sex and age. Serum or plasma cholesterol measurement (mass/volume)Ordered By: Scott Steele on 10-09-2024 Cholesterol [Mass/Vol] 158 mg/dL <201 [facility] Comment on above: Cholesterol level, D esirable <200 mg/dLBorderline high cholesterol 200-239 mg/dLHigh cholesterol >=240 mg/dLRecommendations of the NCEP Adult Treatment Panel for the following risk-cutoff thresholds for the [place] population. Serum or plasma ferritin mitzy surement (mass/volume)Ordered By: Scott Steele on 10-09-2024 Ferritin [Mass/Vol] 20 ng/mL Low 22-378 [facility] Serum or plasma iron saturat ion measurement (mass fraction)Ordered By: Scott Steele on 10-09-2024 Iron saturation [Mass fraction] 14.0 % 13-59 [facility] Serum or plasma urea nitroge n measurement (mass/volume)Ordered By: Scott Steele on 10-09-2024 Urea nitrogen [Mass/Vol] 17 mg/dL 4-19 [facility] Sodium levelOrdered By: Scott Steele on 10-09-2024 Sodium [Moles/Vol] 141 mmol/L 133-145 [facility] Total proteinOrdered By: Syed Steele on 10-09-2024 Protein [Mass/Vol] 8.3 g/dL 5.9-8.4 [facility] Triglycerides measurementOrd ered By: Scott Steele on 10-09-2024 Triglyceride [Mass/Vol] 106 mg/dL <199 [facility] Comment on above: The drugs N-Acetylcy steine and Metamizole may falsely depress this assay. Normal range: <150 mg/dLBorderline High: 150-199 mg/dLHigh: 200-499 mg/dLVery High: >500 mg/dL Urine albumin measurement wi th detection limit of 20 mg/L or less (mass/volume)Ordered By: Scott Steele on 10-09-2024 Albumin DL <= 20 mg/L (U) [Mass/Vol] < 12.0 mg/L NO RANGE EST. [facility] Vitamin B12on 10-09-2024 Cobalamin (Vitamin B12) [Mass/Vol] 561 pg/mL Normal 180-914 [facility] Comment on above: Performed By: #### L 503.6075, L501.9985, L506.1000, L503.0105, L500.4050, L500.4100, L100.0100, L503.6550, L502.0250, L503.6150 #### [facility] [address] [place] [id number] Vitamin B12 ser/plasOrdered By: Scott Steele on 10-09-2024 Cobalamin (Vitamin B12) [Mass/Vol] 561 pg/mL 180-914 [facility] Basic metabolic 2000 panelon 10-04-2024 Anion gap [Moles/Vol] 14 mmol/L Normal 8-15 [facility] Comment on above: Order Comment: Speci men Type: BLOOD SPECIMEN Ordering Facility: [facility] Address: [address] [place] [address] Performed By: #### 2 4321-2 #### [facility] CLIA [id number] [address] [place] [address] [place] Calcium [Mass/Vol] 9.7 mg/dL Normal 8.5-10.2 [facility] Comment on above: Order Comment: Speci men Type: BLOOD SPECIMEN Ordering Facility: [facility] Address: [address] [place] [address] Performed By: #### 2 4321-2 #### [facility] CLIA [id number] [address] [place] [address] [place] Chloride [Moles/Vol] 101 mmol/L Normal 98-107 [facility] Comment on above: Order Comment: Speci men Type: BLOOD SPECIMEN Ordering Facility: [facility] Address: [address] [place] [address] Performed By: #### 2 4321-2 #### [facility] CLIA [id number] [address] [place] [address] [place] CO2 [Moles/Vol] 23 mmol/L Normal 22-30 [facility] Comment on above: Order Comment: Speci men Type: BLOOD SPECIMEN Ordering Facility: [facility] Address: [address] [place] [address] Performed By: #### 2 4321-2 #### [facility] CLIA [id number] [address] [place], [place] [address] [place] Creatinine [Mass/Vol] 0.90 mg/dL Normal 0.58-0.96 [facility] Comment on above: Order Comment: Sulma ho Type: BLOOD SPECIMEN Ordering Facility: [facility] Address: [address] [place] [address] Performed By: #### 2 4321-2 #### [facility] [id number] [address] [place] [address] [place] Creatinine and Glomerular filtration rate.predicted panel (S/P/Bld) 70 mL/min/1.73m??? Normal >=60 [facility] Comment on above: Order Comment: Sulma ho Type: BLOOD SPECIMEN Ordering Facility: [facility] Address: [address] [place] [address] Result Comment: Keke mated Glomerular Filtration Rate (eGFR) is calculated using the 2020 CKD-EPI creatinine equation. This equation utilizes serum creatinine, sex, and age as parameters. The creatinine assay has traceable calibration to isotope dilution-mass spectrometry. Refer to KDIGO guidelines for clinical interpretation. In patients with unstable renal function, e.g. those with acute kidney injury, the eGFR may not accurately reflect actual GFR. Performed By: #### 2 4321-2 #### [facility] [id number] [address] [place] [address] [place] Glucose [Mass/Vol] 111 mg/dL High 74-99 [facility] Comment on above: Order Comment: Sulma ho Type: BLOOD SPECIMEN Ordering Facility: [facility] Address: [address] [place] [address] Result Comment: The [place] Diabetes Association (ADA) provides guidance for cutoff values for fasting glucose and random glucose. The ADA defines fasting as no caloric intake for at least 8 hours. Fasting plasma glucose results between 100 to 125 mg/dL indicate increased risk for diabetes (prediabetes). Fasting plasma glucose results greater than or equal to 126 mg/dL meet the criteria for diagnosis of diabetes. In the absence of unequivocal hyperglycemia, results should be confirmed by repeat testing. In a patient with classic symptoms of hyperglycemia or hyperglycemic crisis, random plasma glucose results greater than or equal to 200 mg/dL meet the criteria for diagnosis of diabetes. Reference: Standards of Medical Care in Diabetes 2016, [place] [employer]. Diabetes Care. 2016.39(Suppl 1). Performed By: #### 2 4321-2 #### [facility] CLIA [id number] [address] [place] [address] [place] Potassium [Moles/Vol] 4.2 mmol/L Normal 3.7-5.1 [facility] Comment on above: Order Comment: Speci men Type: BLOOD SPECIMEN Ordering Facility: [facility] Address: [address] [place] [address] Performed By: #### 2 4321-2 #### [facility] [id number] [address] [place] [address] [place] Sodium [Moles/Vol] 138 mmol/L Normal 136-144 [facility] Comment on above: Order Comment: Speci men Type: BLOOD SPECIMEN Ordering Facility: [facility] Address: [address] [place] [address] Performed By: #### 2 4321-2 #### [facility] [id number] [address] [place] [address] [place] Urea nitrogen [Mass/Vol] 17 mg/dL Normal 7-21 [facility] Comment on above: Order Comment: Speci men Type: BLOOD SPECIMEN Ordering Facility: [facility] Address: [address] [place] [address] Performed By: #### 2 4321-2 #### [facility] [id number] [address] [place] [address] [place] CBC W Auto Differential pane l (Bld)on 10-04-2024 Basophils (Bld) [#/Vol] 0.06 10*3/uL Normal <0.11 [facility] Comment on above: Order Comment: Speci men Type: URINE SPECIMEN Ordering Facility: [facility] Address: [address] [place] [address] Performed By: #### L [id number] #### [facility] CLIA [id number] [address] [place] [address] [place] Basophils/100 WBC (Bld) 0.9 % Normal [facility] Comment on above: Order Comment: Speci men Type: URINE SPECIMEN Ordering Facility: [facility] Address: [address] [place] [address] Performed By: #### L [id number] #### [facility] CLIA [id number] [address] [place] [address] [place] Differential cell count method Nom (Bld) Auto Normal [facility] Comment on above: Order Comment: Speci men Type: URINE SPECIMEN Ordering Facility: [facility] Address: [address] [place] [address] Performed By: #### L [id number] #### [facility] CLIA [id number] [address] [place] [address] [place] Eosinophils (Bld) [#/Vol] 0.09 10*3/uL Normal <0.46 [facility] Comment on above: Order Comment: Speci men Type: URINE SPECIMEN Ordering Facility: [facility] Address: [address] [place] [address] Performed By: #### L [id number] #### [facility] CLIA [id number] [address] [place] [address] [place] Eosinophils/100 WBC (Bld) 1.4 % Normal [facility] Comment on above: Order Comment: Speci men Type: URINE SPECIMEN Ordering Facility: [facility] Address: [address] [place] [address] Performed By: #### L [id number] #### [facility] CLIA [id number] [address] [place] [address] [place] Erythrocyte distribution width (RBC) [Ratio] 14.4 % Normal 11.5-15.0 [facility] Comment on above: Order Comment: Speci men Type: URINE SPECIMEN Ordering Facility: [facility] Address: [address] [place] [address] Performed By: #### L [id number] #### [facility] CLIA [id number] [address] [place] [address] [place] Hematocrit (Bld) [Volume fraction] 37.7 % Normal 36.0-46.0 [facility] Comment on above: Order Comment: Speci men Type: URINE SPECIMEN Ordering Facility: [facility] Address: [address] [place] [address] Performed By: #### L [id number] #### [facility] CLIA [id number] [address] [place] [address] [place] Hemoglobin (Bld) [Mass/Vol] 12.3 g/dL Normal 11.5-15.5 [facility] Comment on above: Order Comment: Speci men Type: URINE SPECIMEN Ordering Facility: [facility] Address: [address] [place] [address] Performed By: #### L [id number] #### [facility] CLIA [id number] [address] [place] [address] [place] Immature granulocytes (Bld) [#/Vol] 0.03 10*3/uL Normal <0.10 [facility] Comment on above: Order Comment: Speci men Type: URINE SPECIMEN Ordering Facility: [facility] Address: [address] [place] [address] Performed By: #### L [id number] #### [facility] CLIA [id number] [address] [place] [address] [place] Immature granulocytes/100 WBC (Bld) 0.5 % Normal [facility] Comment on above: Order Comment: Speci men Type: URINE SPECIMEN Ordering Facility: [facility] Address: [address] [place] [address] Performed By: #### L [id number] #### [facility] CLIA [id number] [address] [place] [address] [place] Lymphocytes (Bld) [#/Vol] 2.31 10*3/uL Normal 1.00-4.0 0 [facility] Comment on above: Order Comment: Speci men Type: URINE SPECIMEN Ordering Facility: [facility] Address: [address] [place] [address] Performed By: #### L [id number] #### [facility] CLIA [id number] [address] [place] [address] [place] Lymphocytes/100 WBC (Bld) 34.7 % Normal [facility] Comment on above: Order Comment: Speci men Type: URINE SPECIMEN Ordering Facility: [facility] Address: [address] [place] [address] Performed By: #### L [id number] #### [facility] CLIA [id number] [address] [place] [address] [place] MCH (RBC) [Entitic mass] 28.7 pg Normal 26.0-34.0 [facility] Comment on above: Order Comment: Speci men Type: URINE SPECIMEN Ordering Facility: [facility] Address: [address] [place] [address] Performed By: #### L [id number] #### [facility] CLIA [id number] [address] [place] [address] [place] MCHC (RBC) [Mass/Vol] 32.6 g/dL Normal 30.5-36.0 [facility] Comment on above: Order Comment: Speci men Type: URINE SPECIMEN Ordering Facility: [facility] Address: [address] [place] [address] Performed By: #### L [id number] #### [facility] CLIA [id number] [address] [place] [address] [place] MCV (RBC) [Entitic vol] 88.1 fL Normal 80.0-100.0 C [facility] Comment on above: Order Comment: Speci men Type: URINE SPECIMEN Ordering Facility: [facility] Address: [address] [place] [address] Performed By: #### L [id number] #### [facility] CLIA [id number] [address] [place] [address] [place] Monocytes (Bld) [#/Vol] 0.56 10*3/uL Normal <0.87 [facility] Comment on above: Order Comment: Speci men Type: URINE SPECIMEN Ordering Facility: [facility] Address: [address] [place] [address] Performed By: #### L [id number] #### [facility] CLIA [id number] [address] [place] [address] [place] Monocytes/100 WBC (Bld) 8.4 % Normal C [facility] Comment on above: Order Comment: Speci men Type: URINE SPECIMEN Ordering Facility: [facility] Address: [address] [place] [address] Performed By: #### L [id number] #### [facility] CLIA [id number] [address] [place] [address] [place] Neutrophils (Bld) [#/Vol] 3.60 10*3/uL Normal 1.45-7.5 0 [facility] Comment on above: Order Comment: Speci men Type: URINE SPECIMEN Ordering Facility: [facility] Address: [address] [place] [address] Performed By: #### L [id number] #### [facility] CLIA [id number] [address] [place] [address] [place] Neutrophils/100 WBC (Bld) 54.1 % Normal [facility] Comment on above: Order Comment: Speci men Type: URINE SPECIMEN Ordering Facility: [facility] Address: [address] [place] [address] Performed By: #### L [id number] #### [facility] CLIA [id number] [address] [place] [address] [place] Nucleated RBC (Bld) [#/Vol] 10*3/uL Normal <0.01 [facility] Comment on above: Order Comment: Speci men Type: URINE SPECIMEN Ordering Facility: [facility] Address: [address] [place] [address] Performed By: #### L [id number] #### [facility] CLIA [id number] [address] [place] [address] [place] Nucleated RBC/100 WBC (Bld) [Ratio] 0.0 /100 WBC Normal [facility] Comment on above: Order Comment: Speci men Type: URINE SPECIMEN Ordering Facility: [facility] Address: [address] [place] [address] Performed By: #### L [id number] #### [facility] CLIA [id number] [address] [place] [address] [place] Platelet mean volume (Bld) [Entitic vol] 10.6 fL Normal 9.0-12.7 [facility] Comment on above: Order Comment: Speci men Type: URINE SPECIMEN Ordering Facility: [facility] Address: [address] [place] [address] Performed By: #### L [id number] #### [facility] CLIA [id number] [address] [place] [address] [place] Platelets (Bld) [#/Vol] 253 10*3/uL Normal 150-400 [facility] Comment on above: Order Comment: Speci men Type: URINE SPECIMEN Ordering Facility: [facility] Address: [address] [place] [address] Performed By: #### L [id number] #### [facility] CLIA [id number] [address] [place] [address] [place] RBC (Bld) [#/Vol] 4.28 10*6/uL Normal 3.90-5.20 [facility] Comment on above: Order Comment: Speci men Type: URINE SPECIMEN Ordering Facility: [facility] Address: [address] [place] [address] Performed By: #### L [id number] #### [facility] CLIA [id number] [address] [place] [address] [place] WBC (Bld) [#/Vol] 6.65 10*3/uL Normal 3.70-11.00 [facility] Comment on above: Order Comment: Speci men Type: URINE SPECIMEN Ordering Facility: [facility] Address: [address] [place] [address] Performed By: #### L [id number] #### [facility] CLIA [id number] [address] [place] [address] [place] IMMUNOFIXATION SCREEN, SERUM on 10-04-2024 INTERPRETATION (MPA) Poorly defined agnes on of restricted mobility in IgG and kappa lanes. Pattern is less well defined or fainter than typically seen in monoclonal gammopathy. This could represent either an atypical presentation of polyclonal immunoglobulins or the presence of a low level IgG kappa monoclonal gammopathy. If clinically indicated, urine monoclonal protein analysis and serum free light chain measurements are recommended to evaluate further for monoclonal gammopathy. Clinical correlation is necessary. Normal [facility] Comment on above: Order Comment: Speci men Type: BLOOD SPECIMEN Ordering Facility: [facility] Address: [address] [place] [address] Performed By: #### I FESC #### [facility] CLIA [id number] [address] [place] [address] [place] MPA RESULT A poorly defined reg ion of restricted mobility is present that may represent an M protein. Abnormal No M protein is identified. [facility] Comment on above: Order Comment: Speci men Type: BLOOD SPECIMEN Ordering Facility: [facility] Address: [address] [place] [address] Performed By: #### I FESC #### [facility] CLIA [id number] [address] [place], [place] [id number] [place] STAFF REVIEW (MPA) Reviewed by Zulma Hugo MD Normal [facility] Comment on above: Order Comment: Speci men Type: BLOOD SPECIMEN Ordering Facility: [facility] Address: [address] [place] [address] Performed By: #### I [facility] #### [facility] CLIA [id number] [address] [place], [place] [address] [place] IMMUNOGLOBULINS,IGG,IGA,IGMo n 10-04-2024 IgA [Mass/Vol] 174 mg/dL Normal 70-400 [facility] Comment on above: Order Comment: Speci men Type: BLOOD SPECIMEN Ordering Facility: [facility] Address: [address] [place] [address] Performed By: #### S ERIMM #### [facility] CLIA [id number] [address] [place] [address] [place] IgG [Mass/Vol] 804 mg/dL Normal 700-1600 [facility] Comment on above: Order Comment: Speci men Type: BLOOD SPECIMEN Ordering Facility: [facility] Address: [address] [place] [address] Performed By: #### S ERIMM #### [facility] CLIA [id number] [address] [place] [address] [place] IgM [Mass/Vol] 602 mg/dL High 40-230 [facility] Comment on above: Order Comment: Speci men Type: BLOOD SPECIMEN Ordering Facility: [facility] Address: [address] [place] [address] Performed By: #### S ERIMM #### [facility] CLIA [id number] [address] [place], [place] [address] [place] KAPPA/LA,FREE,SERon 2024 Immunoglobulin light chains.kappa.free (S) [Mass/Vol] 37.5 mg/L High 3.3-19.4 [facility] Comment on above: Order Comment: Speci men Type: URINE SPECIMEN Ordering Facility: [facility] Address: [address] [place] [address] Result Comment: Rare ly, increased serum free light chains levels may not be detected or accurately quantified due to prozone phenomenon or in high viscosity samples using this immunoturbidimetric assay. Correlation with other laboratory results and clinical findings is recommended. The Decordova Free Light Chain was performed using the Binding Site Optilite immunoturbidimetric method. Result obtained with different assay methods or kits cannot be used interchangeably. Performed By: #### L [id number] #### [facility] CLIA [id number] [address] [place] [address] [place] Immunoglobulin light chains.kappa/Immunoglobul in light chains.lambda (S) [Mass ratio] 1.38 Normal 0.26-1.65 [facility] Comment on above: Order Comment: Speci men Type: URINE SPECIMEN Ordering Facility: [facility] Address: [address] [place] [address] Performed By: #### L [id number] #### [facility] CLIA [id number] [address] [place] [address] [place] Immunoglobulin light chains.lambda.free [Mass/Vol] 27.1 mg/L High 5.7-26.3 [facility] Comment on above: Order Comment: Speci men Type: URINE SPECIMEN Ordering Facility: [facility] Address: [address] [place] [address] Result Comment: Rare ly, increased serum free light chains levels may not be detected or accurately quantified due to prozone phenomenon or in high viscosity samples using this immunoturbidimetric assay. Correlation with other laboratory results and clinical findings is recommended. The Lambda Free Light Chain was performed using the Binding Site Optilite immunoturbidimetric method. Result obtained with different assay methods or kits cannot be used interchangeably. Performed By: #### L [id number] #### [facility] CLIA [id number] [address] [place] [address] [place] PROTEIN ELECTROPHORESIS SERU M (P)on 10-04-2024 Albumin [Mass/Vol] 4.59 g/dL Normal 3.43-5.41 [facility] Comment on above: Order Comment: Speci men Type: BLOOD SPECIMEN Ordering Facility: [facility] Address: [address] [place] [address] Performed By: #### L [id number] #### [facility] CLIA [id number] [address] [place] [address] [place] Alpha 1 globulin Elph [Mass/Vol] 0.27 g/dL Normal 0.18-0.43 [facility] Comment on above: Order Comment: Speci men Type: BLOOD SPECIMEN Ordering Facility: [facility] Address: [address] [place] [address] Performed By: #### L [id number] #### [facility] CLIA [id number] [address] [place] [address] [place] Alpha 2 globulin Elph [Mass/Vol] 0.74 g/dL Normal 0.42-0.98 [facility] Comment on above: Order Comment: Speci men Type: BLOOD SPECIMEN Ordering Facility: [facility] Address: [address] [place] [address] Performed By: #### L [id number] #### [facility] CLIA [id number] [address] [place] [address] [place] Beta globulin Elph [Mass/Vol] 0.87 g/dL Normal 0.61-1.17 [facility] Comment on above: Order Comment: Speci men Type: BLOOD SPECIMEN Ordering Facility: [facility] Address: [address] [place] [address] Performed By: #### L [id number] #### [facility] CLIA [id number] [address] [place] [address] [place] Gamma globulin Elph [Mass/Vol] 0.94 g/dL Normal 0.53-1.51 [facility] Comment on above: Order Comment: Speci men Type: BLOOD SPECIMEN Ordering Facility: [facility] Address: [address] [place] [address] Performed By: #### L [id number] #### [facility] CLIA [id number] [address] [place] [address] [place] M-PROTEIN LOCATION Normal [facility] Comment on above: Order Comment: Speci men Type: BLOOD SPECIMEN Ordering Facility: [facility] Address: [address] [place] [address] Result Comment: Not Applicable. Performed By: #### L [id number] #### [facility] CLIA [id number] [address] [place] [address] [place] Protein Fractions [Interp] No definitive M protein is identified on protein electrophoresis. Normal No definitive M protein is identified on protein electrophore sis. [facility] Comment on above: Order Comment: Speci men Type: BLOOD SPECIMEN Ordering Facility: [facility] Address: [address] [place] [address] Performed By: #### L [id number] #### [facility] CLIA [id number] [address] [place] [address] [place] Protein.monoclonal Elph [Mass/Vol] 0.00 g/dL Normal <=0.00 [facility] Comment on above: Order Comment: Speci men Type: BLOOD SPECIMEN Ordering Facility: [facility] Address: [address] [place], [place] [id number] Performed By: #### L [id number] #### [facility] CLIA [id number] [address] [place] [address] [place] SPE STAFF REVIEW Reviewed by Zulma Hugo MD Normal [facility] Comment on above: Order Comment: Speci men Type: BLOOD SPECIMEN Ordering Facility: [facility] Address: [address] [place] [address] Performed By: #### L [id number] #### [facility] CLIA [id number] [address] [place] [address] [place] [address] [place] Prot SerPl-mCncon 10-04-2024 Protein [Mass/Vol] 7.4 g/dL Normal 6.3-8.0 [facility] Comment on above: Order Comment: Speci men Type: BLOOD SPECIMEN Ordering Facility: [facility] Address: [address] [place] [address] Performed By: #### 2 [id number] #### [facility] CLIA [id number] [address] [place] [address] [place] [address] [place] Bedside Glucoseon 09-04-2024 FINGERSTICK GLU 117 mg/dL High 74-106 [facility] Comment on above: Result Comment: MARC GEMENT OF PATIENT CARE PER NURSING PROTOCOL Performed By: #### L 503.6075, L501.9985, L506.1000, L503.0105, L500.4050, L500.4100, L100.0100, L503.6550, L502.0250, L503.6150 #### [facility] [address] [place], [address] Colonoscopy Reporton 025 Colonoscopy Report [facility] Medical Records Department [address] [place] [address] Colonoscopy Report MR#: [id number] Acct: [id number] Name: MARTHA FABIAN Rep #: [id number] : 1955 69 From: Karri Banegas DO PCP: Dr. Scott Steele MD Status:[facility] Patient Name: Martha Fabian Procedure Date: 09/04/2024 10:46 AM Date of : 1955 Age: 69 Procedure: Colonoscopy Indications: Screening for colorectal malignant neoplasm Providers: Karri Banegas DO Medicines: Monitored Anesthesia Care Patient Profile: This is a 69 year old female. Refer to note in patient chart for documentation of history and physical. Last Colonoscopy: 5 years ago. Complications: No immediate complications. Procedure: Pre-Anesthesia Assessment: - Prior to the procedure, a History and Physical was performed, and patient medications and allergies were reviewed. The patient is competent. The risks and benefits of the procedure and the sedation options and risks were discussed with the patient. All questions were answered and informed consent was obtained. Patient identification and proposed procedure were verified by the physician in the pre-procedure area. Mental Status Examination: alert and oriented. Airway Examination: normal oropharyngeal airway and neck mobility. Respiratory Examination: clear to auscultation. CV Examination: normal. Prophylactic Antibiotics: The patient does not require prophylactic antibiotics. Prior Anticoagulants: The patient has taken no anticoagulant or antiplatelet agents except for NSAID medication. ASA Grade Assessment: II - A patient with mild systemic disease. After reviewing the risks and benefits, the patient was deemed in satisfactory condition to undergo the procedure. The anesthesia plan was to use monitored anesthesia care (MAC). Immediately prior to administration of medications, the patient was re-assessed for adequacy to receive sedatives. The heart rate, respiratory rate, oxygen saturations, blood pressure, adequacy of pulmonary ventilation, and response to care were monitored throughout the procedure. The physical status of the patient was re-assessed after the procedure. After I obtained informed consent, the scope was passed under direct vision. Throughout the procedure, the patient's blood pressure, pulse, and oxygen saturations were monitored continuously. The Colonoscope was introduced through the anus with the intention of advancing to the cecum. The scope was advanced to the splenic flexure before the procedure was aborted. Medications were given. The colonoscopy was performed without difficulty. The patient tolerated the procedure well. The quality of the bowel preparation was 90 percent obscured. The rectum, hepatic flexure and sigmoid colon were photographed. Scope In: 11:01:09 AM Scope Out: 11:02:57 AM Total Procedure Duration Time 0 hours 1 minute 48 seconds Findings: The perianal and digital rectal examinations were normal. Multiple small and large-mouthed diverticula were found in the recto-sigmoid colon, sigmoid colon and descending colon. Copious quantities of stool was found in the entire colon, precluding visualization. Impression: - Diverticulosis in the recto-sigmoid colon, in the sigmoid colon and in the descending colon. - Stool in the entire examined colon. - No specimens collected. Recommendation: - Discharge patient to home. - Resume previous diet. - Continue present medications. - Repeat colonoscopy because the bowel preparation was poor. Procedure Code(s): --- Professional --- 72234, 53, Colonoscopy, flexible; diagnostic, including collection of specimen(s) by brushing or washing, when performed (separate procedure) CPT copyright 2021 [employer]. All rights reserved. The codes documented in this report are preliminary and upon tank welder review may be revised to meet current compliance requirements. Karri Banegas DO 09/04/2024 11:08:30 AM This report has been signed electronically. Number of Addenda: 0 Note Initiated On: 09/04/2024 10:46 AM 09/04/24 1108 Date Karri Banegas DO Cosigner Signature: Date (if indicated) CC: Dr. Scott Steele MD; Karri Banegas DO Date Dictated: 09/04/24 1046 Date Transcribed: Brush Maker Machine: DOROTHEA Signed [facility] Glucose measurement at [facility] deOrdered By: Karri Banegas on 09-04-2024 Bedside Glucose (Misc Panel) 117 mg/dL High 74-106 [facility] Comment on above: MANAGEMENT OF PATIEN T CARE PER NURSING PROTOCOL Glucose [Mass/Vol] 117 mg/dL High 74-106 [facility] Comment on above: MANAGEMENT OF PATIEN T CARE PER NURSING PROTOCOL MR/POSTOP.ANEon 09-04-2024 MR/POSTOP.[facility] Medical Records Department [address] [place] [address] Anesthesia Postop Eval I 09/04/24 1112 MR#: [id number] Acct: [id number] Name: MARTHA FABIAN Rep #: [id number] : 1955 69 From: Tab Interiano PCP: Dr. Scott Steele MD Status:REG SD Y Race: C Location: [place] [address] Anesthesia: Postop Eval I Current Vital Signs Temperature: 98.7 F Pulse Rate: 51 Blood Pressure: 111/62 Respiratory Rate: 16 Pulse Ox: 95 Oxygen Delivery Method: Room Air Assessment Airway patent: Yes Spontaneous unlabored respirations: Yes Mental status: Asleep nausea: No Vomiting: No Anesthesia Complication: No Fluid Hydration Crystalloid volume administer (ml): 30 Total IV fluid infused: 30 Progress Note Anesthesia document: Postop Eval 1 completed: Yes 09/04/24 1114 Date Tab Branch Signature: Date CC: Signed Normal [facility] MR/[id number] 09-04-2024 [facility] Medical Records Department [address] [place] [address] Anesthesia Postop Eval II 09/04/24 1126 MR#: [id number] Acct: [id number] Name: MARTHA FABIAN Rep #: [id number] : 1955 69 From: Dennis Chandler MD PCP: Dr. Scott Steele MD Status:REG [facility] [place] Y Race: C Location: [place] [address] Anesthesia Postop Eval I Sum Postop Eval Completion status Anesthesia document: Postop Eval 1 completed: Yes Anesthesia Postop Eval I Summary Anesthesia Postop Eval I Summary: Anesthesia Postop Eval I: Assessment Summary Airway patent Yes 09/04/24 11:14 [email or web address] Spontaneous unlabored Yes 09/04/24 11:14 [email or web address] respirations Mental status Asleep 09/04/24 11:14 [email or web address] nausea No 09/04/24 11:14 [email or web address] Vomiting No 09/04/24 11:14 [email or web address] Anesthesia Postop Eval I: Fluid Summary Crystalloid volume administer 30 09/04/24 11:14 [email or web address] (ml) Colloids volume administered ( ml) Blood Product volume administered (ml) Total IV fluid infused 30 09/04/24 11:14 [email or web address] Anesthesia Postop Eval I: Summary Notes Anesthesia Complication No 09/04/24 11:14 [email or web address] Anesthesia Complication Comment: Post-operative progress note Anesthesia: Postop Eval II Evaluation Mental status: Awake Pain Level: 0 nausea: No Vomiting: No 09/04/24 1126 Date Dennis Branch Signature: Date CC: Signed Normal [facility] Gastroenterology Visit Repor ton 06-28-2024 Gastroenterology Visit Report [facility] Gastroenterology [address] [place] [address] OFFICE VISIT Date of Service: 06/28/24 MR#: [id number] Acct: [id number] Name: MARTHA FABIAN Sarthak Rep #: [id number] : 1955 Provider: Karri Banegas DO Age/Sex: 68/F Location: [facility] [place] [facility] Status: Signed Intake Intake Visit Reasons: PRE COLON Allergies No Known Allergies Allergy (Unverified 02/05/19 10:46) Medications ???Medication ???Instructions ???Recorded ???Confirmed ???Type aspirin 81 mg tablet,delayed 81 mg PO DAILY 10/19/18 06/28/24 H istory release (Adult Low Dose Aspirin) lisinopril 5 mg tablet 5 mg PO QHS 10/19/18 06/28/24 Hist ory metformin 500 mg tablet 500 mg PO BID 10/19/18 06/28/24 Hi story niacin 50 mg tablet 50 mg PO .qid 10/19/18 06/28/24 Hi story omeprazole 40 mg capsule,delayed 40 mg PO DAILY 01/22/19 06/28/24 H istory release calcium carbonate 600 mg PO DAILY 02/05/19 06/28/24 History cholecalciferol (vitamin D3) 50 2,000 unit PO DAILY 02/05/1906/28 History mcg (2,000 unit) capsule multivitamin with minerals 1 ea PO DAILY 02/05/19 06/28/24 Hi story dapagliflozin propanediol 10 mg 10 mg PO QAM 06/28/24 06/28/24 His tory tablet (Farxiga) rosuvastatin 20 mg tablet 20 mg PO QDAY 06/28/24 06/28/24 Hi story verapamil 40 mg tablet 120 mg PO BID 06/28/24 06/28/24 Hi story Have you fallen in the past year?: No PFSH Medical History (Updated 06/28/24 @ 12:[address] Zeng Friend, DO) Anemia Constipation Diarrhea Hemorrhoids Nausea Abdominal pain Anxiety Heart murmur Arthritis Rash Thyroid disease Fatigue Multinodular goiter Hypercholesterolemia Hypertension Diabetes Surgical History Hx of colonoscopy Hx of biopsy History of hysterectomy History of Family History Mother Cancer Hypertension Hypercholesterolemia CVA (cerebral vascular accident) Father Heart disease Hypercholesterolemia Hypertension Kidney disease Social History (Updated 02/20/19 @ 09:[address] Deon Keita MD) Smoking Status: Never smoker alcohol intake: never substance use type: does not use caffeine: Yes what type of physical activity do you participate in: walking frequency: 1-2 times per week HPI HPI Details: MARTHA FABIAN, is a 68 F who presents to the office today for initial consult. 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 This is caused her to have a macrocytic anemia. She arrives here for a screening colonoscopy. *BGI established 2.7.25 ROS Const Constitutional: Positive for weakness and weight change (weight gain); No fatigue or fever(s) ENT ENT: No difficulty swallowing Cardio Cardiology: Positive for leg pain with exertion Gastro GI: Positive for abdominal pain, bloating, constipation, diarrhea, heartburn and excessive flatus; No belching, change in bowel habits, change in stool character, coffee ground emesis, cramping, difficulty swallowing, feeling full early, incontinent of stools, Vomiting blood/hematemesis, Blood in stool, loose stools, Black,tarry stools, nausea/dyspepsia, pain with swallowing, vomiting or other Musc Musculoskeletal: Positive for abnormal gait, joint pain, back pain, joint swelling, numbness, stiffness, tingling, Arthritis and leg pain with exertion Skin Skin: Positive for dry skin and itchy eyes; No yellowing of the eye Neuro Neurology: Positive for abnormal gait, weakness, numbness and tingling Psych Psychiatric: Positive for anxiety and No depression Endo Endocrine: Positive for weight change (weight gain); No fatigue Aller/Imm Allergy/Immunologic: Positive for itchy eyes Vidal/Lymp Hematologic/Lymphatic: No easy bleeding or easy bruising Exam Const General: cooperative, healthy appearing and comfortable Nutritional Appearance: average body habitus Orientation: alert, awake and oriented x3 HENMT Head: normal to inspection Ears: hearing grossly normal bilaterally Nose: external nose normal Face and sinus: normal facial exam Mouth: oral mucosae normal Eyes General: appearance normal, both eyes and all related structures Neck Neck: normal visual inspection Chest Chest palpation inspection: normal inspection of the chest Resp Effort Inspection: normal respiratory effort Auscultation: Bilateral: Clear to Auscultation Cardio Palpation: normal PMI Rate: regular rate Rhythm: regular rhythm GI Inspection: normal to inspection Auscultation: normal bowel sounds Percussion: normal to percussion Palpation: soft Rectal Exam: visual inspection normal Assessment and Plan Assessment and Plan (1) Encounter for screening colonoscopy: Status: Acute Plan: She (more content not included)... Normal [facility] CBC W/Diff, Automatedon 12- 0-2023 Absolute Lymph 2.03 X10 3/uL Normal 0.83-4.51 [facility] Comment on above: Order Comment: Order Date: 01/18/24 Order Info: 0184-1 - CBCD Performed By: #### L 503.7585, L501.9985, L506.1000, L503.0105, L500.4050, L500.4100, L100.0100, L503.6550, L502.0250, L503.6150 #### [facility] [address] [place], [address] Absolute Neut 4.4 X10 3/uL Normal 2.0-7.7 [facility] Comment on above: Order Comment: Order Date: 01/18/24 Order Info: 018- - CBCD Performed By: #### L 503.6075, L501.9985, L506.1000, L503.0105, L500.4050, L500.4100, L100.0100, L503.6550, L502.0250, L503.6150 #### [facility] [address] [place], [address] Basophils/100 WBC (Bld) 0.8 % Normal 0-1 [facility] Comment on above: Order Comment: Order Date: 01/18/24 Order Info: 018- - CBCD Performed By: #### L 503.6075, L501.9985, L506.1000, L503.0105, L500.4050, L500.4100, L100.0100, L503.6550, L502.0250, L503.6150 #### [facility] [address] [place], [address] Eosinophils/100 WBC (Bld) 1.2 % Normal 0-5 [facility] Comment on above: Order Comment: Order Date: 01/18/24 Order Info: 0184- - CBCD Performed By: #### L 503.6075, L501.9985, L506.1000, L503.0105, L500.4050, L500.4100, L100.0100, L503.6550, L502.0250, L503.6150 #### [facility] [address] [place], [address] Erythrocyte distribution width (RBC) [Ratio] 14.7 % High 11.6-14.6 [facility] Comment on above: Order Comment: Order Date: 01/18/24 Order Info: 018- - CBCD Performed By: #### L 503.6075, L501.9985, L506.1000, L503.0105, L500.4050, L500.4100, L100.0100, L503.6550, L502.0250, L503.6150 #### [facility] [address] [place], [place], [phone] (366) Hematocrit (Bld) [Volume fraction] 41.1 % Normal 37-47 [facility] Comment on above: Order Comment: Order Date: 01/18/24 Order Info: 0184-1 - CBCD Performed By: #### L 503.6075, L501.9985, L506.1000, L503.0105, L500.4050, L500.4100, L100.0100, L503.6550, L502.0250, L503.6150 #### [facility] [address] [place], [place], [phone] (355) Hemoglobin (Bld) [Mass/Vol] 13.2 g/dL Normal 12.0-15.0 [facility] Comment on above: Order Comment: Order Date: 01/18/24 Order Info: 0184-1 - CBCD Performed By: #### L 503.6075, L501.9985, L506.1000, L503.0105, L500.4050, L500.4100, L100.0100, L503.6550, L502.0250, L503.6150 #### [facility] [address] [place], [place], [phone] (763) IG% 0.700 Normal 0.0-0.9 [facility] Comment on above: Order Comment: Order Date: 01/18/24 Order Info: 0184-1 - CBCD Result Comment: IG% - Immature Granulocytes (promyelocytes, myelocytes and metamyelocytes) > 1% indicates that a LEFT SHIFT is Present. Performed By: #### L 503.6075, L501.9985, L506.1000, L503.0105, L500.4050, L500.4100, L100.0100, L503.6550, L502.0250, L503.6150 #### [facility] [address] [place], [address] Lymphocytes/100 WBC (Bld) 28.1 % Normal 19-41 [facility] Comment on above: Order Comment: Order Date: 01/18/24 Order Info: 0184- - CBCD Performed By: #### L 503.6075, L501.9985, L506.1000, L503.0105, L500.4050, L500.4100, L100.0100, L503.6550, L502.0250, L503.6150 #### [facility] [address] [place], [address] MCH (RBC) [Entitic mass] 28.4 pg Normal 27.0-32.0 [facility] Comment on above: Order Comment: Order Date: 01/18/24 Order Info: 0184- - CBCD Performed By: #### L 503.6075, L501.9985, L506.1000, L503.0105, L500.4050, L500.4100, L100.0100, L503.6550, L502.0250, L503.6150 #### [facility] [address] [place], [address] MCHC (RBC) [Mass/Vol] 32.1 g/dL Normal 32-36 [facility] Comment on above: Order Comment: Order Date: 01/18/24 Order Info: 0184- - CBCD Performed By: #### L 503.6075, L501.9985, L506.1000, L503.0105, L500.4050, L500.4100, L100.0100, L503.6550, L502.0250, L503.6150 #### [facility] [address] [place], [address] MCV (RBC) [Entitic vol] 88.6 fL Normal 81-99 [facility] Comment on above: Order Comment: Order Date: 01/18/24 Order Info: 0184- - CBCD Performed By: #### L 503.6075, L501.9985, L506.1000, L503.0105, L500.4050, L500.4100, L100.0100, L503.6550, L502.0250, L503.6150 #### [facility] [address] [place], [address] Monocytes/100 WBC (Bld) 8.4 % Normal 0-10 [facility] Comment on above: Order Comment: Order Date: 01/18/24 Order Info: 018- - CBCD Performed By: #### L 503.6075, L501.9985, L506.1000, L503.0105, L500.4050, L500.4100, L100.0100, L503.6550, L502.0250, L503.6150 #### [facility] [address] [place], [address] Neutrophils/100 WBC (Bld) 60.8 % Normal 47-70 [facility] Comment on above: Order Comment: Order Date: 01/18/24 Order Info: 018- - CBCD Performed By: #### L 503.6075, L501.9985, L506.1000, L503.0105, L500.4050, L500.4100, L100.0100, L503.6550, L502.0250, L503.6150 #### [facility] [address] [place], [address] Nucleated RBC (Bld) [#/Vol] 0 10*3/uL Normal 0-5 [facility] Comment on above: Order Comment: Order Date: 01/18/24 Order Info: 0184- - CBCD Performed By: #### L 503.6075, L501.9985, L506.1000, L503.0105, L500.4050, L500.4100, L100.0100, L503.6550, L502.0250, L503.6150 #### [facility] [address] [place], [address] Platelet mean volume (Bld) [Entitic vol] 10.9 fL Normal 6.2-12.0 [facility] Comment on above: Order Comment: Order Date: 01/18/24 Order Info: 018- - CBCD Performed By: #### L 503.6075, L501.9985, L506.1000, L503.0105, L500.4050, L500.4100, L100.0100, L503.6550, L502.0250, L503.6150 #### [facility] [address] [place], [address] Platelets (Bld) [#/Vol] 288 10*3/uL Normal 150-450 [facility] Comment on above: Order Comment: Order Date: 01/18/24 Order Info: 018- - CBCD Performed By: #### L 503.6075, L501.9985, L506.1000, L503.0105, L500.4050, L500.4100, L100.0100, L503.6550, L502.0250, L503.6150 #### [facility] [address] [place], [place], [phone] (264) RBC (Bld) [#/Vol] 4.64 10*6/uL Normal 4.2-5.4 [facility] Comment on above: Order Comment: Order Date: 01/18/24 Order Info: 018- - CBCD Performed By: #### L 503.6075, L501.9985, L506.1000, L503.0105, L500.4050, L500.4100, L100.0100, L503.6550, L502.0250, L503.6150 #### [facility] [address] [place], [address] RDW SD 47.0 fl High 35.1-43.9 [facility] Comment on above: Order Comment: Order Date: 01/18/24 Order Info: 0184-1 - CBCD Performed By: #### L 503.6075, L501.9985, L506.1000, L503.0105, L500.4050, L500.4100, L100.0100, L503.6550, L502.0250, L503.6150 #### [facility] [address] [place], [place], [phone] WBC (Bld) [#/Vol] 7.2 10*3/uL Normal 4.4-11.0 [facility] Comment on above: Order Comment: Order Date: 01/18/24 Order Info: 0184-1 - CBCD Performed By: #### L 503.6075, L501.9985, L506.1000, L503.0105, L500.4050, L500.4100, L100.0100, L503.6550, L502.0250, L503.6150 #### [facility] [address] [place], [address] Comprehensive Metabolic Prof [facility] 04-30-2024 Albumin [Mass/Vol] 4.0 g/dL Normal 3.2-5.0 [facility] Comment on above: Order Comment: Order Date: 01/18/24 Order Info: 0786-1 - CMP Order Info: 06197-7 - LIPID Order Info: 2500-7 - TIBC Order Info: 2498-4 - FE Order Info: 2276-4 - DARRYL Performed By: #### L 503.6075, L501.9985, L506.1000, L503.0105, L500.4050, L500.4100, L100.0100, L503.6550, L502.0250, L503.6150 #### [facility] [address] [place], [place], [phone] Albumin/Globulin [Mass ratio] 1.1 {ratio} Normal 0.9-2.4 [facility] Comment on above: Order Comment: Order Date: 01/18/24 Order Info: 785-05 - CMP Order Info: - LIPID Order Info: 2499-11 TIBC Order Info: 2497-08 - FE Order Info: 2275-08 - DRARYL Performed By: #### L 503.6075, L501.9985, L506.1000, L503.0105, L500.4050, L500.4100, L100.0100, L503.6550, L502.0250, L503.6150 #### [facility] [address] [place], [address] ALK P 34 U/L Low 45-117 [facility] Comment on above: Order Comment: Order Date: 01/18/24 Order Info: 785-05 - CMP Order Info: - LIPID Order Info: 2499-11 TIBC Order Info: 2497-08 - FE Order Info: 2275-08 - DARRYL Performed By: #### L 503.6075, L501.9985, L506.1000, L503.0105, L500.4050, L500.4100, L100.0100, L503.6550, L502.0250, L503.6150 #### [facility] [address] [place], [place], [address] ALT [Catalytic activity/Vol] 25 U/L Normal 13-56 [facility] Comment on above: Order Comment: Order Date: 01/18/24 Order Info: 785-05 - CMP Order Info: - LIPID Order Info: 2499-11 TIBC Order Info: 2497-08 - FE Order Info: 2275-08 - DARRYL Performed By: #### L 503.6075, L501.9985, L506.1000, L503.0105, L500.4050, L500.4100, L100.0100, L503.6550, L502.0250, L503.6150 #### [facility] [address] [place], [place], [id number] AST [Catalytic activity/Vol] 16 U/L Normal 15-37 [facility] Comment on above: Order Comment: Order Date: 01/18/24 Order Info: 785-05 - CMP Order Info: - LIPID Order Info: 2499-11 TIBC Order Info: 2497-08 FE Order Info: 2275-08 - DARRYL Performed By: #### L 503.6075, L501.9985, L506.1000, L503.0105, L500.4050, L500.4100, L100.0100, L503.6550, L502.0250, L503.6150 #### [facility] [address] [place], [address] Bilirubin [Mass/Vol] 0.70 mg/dL Normal 0.20-1.00 [facility] Comment on above: Order Comment: Order Date: 01/18/24 Order Info: 785-05 - CMP Order Info: - LIPID Order Info: 2499-11 TIBC Order Info: 2497-08 - FE Order Info: 2275-08 - DARRYL Result Comment: For patients on eltrombopag therapy, use of Dimension [place] TBIL is not recommended. Performed By: #### L 503.6075, L501.9985, L506.1000, L503.0105, L500.4050, L500.4100, L100.0100, L503.6550, L502.0250, L503.6150 #### [facility] [address] [place], [address] BUN/CRE 22.0 RATIO High 10-20 [facility] Comment on above: Order Comment: Order Date: 01/18/24 Order Info: 785-05 - CMP Order Info: - LIPID Order Info: 2499-11 TIBC Order Info: 2497-08 FE Order Info: 2275-08 - DARRYL Performed By: #### L 503.6075, L501.9985, L506.1000, L503.0105, L500.4050, L500.4100, L100.0100, L503.6550, L502.0250, L503.6150 #### [facility] [address] [place], [place], [phone] ([phone]) CA,Total 9.7 mg/dL Normal 8.5-10.1 [facility] Comment on above: Order Comment: Order Date: 01/18/24 Order Info: 785-05 - CMP Order Info: - LIPID Order Info: 2499-11 - TIBC Order Info: 2497-08 - FE Order Info: 2275-08 - DARRYL Performed By: #### L 503.6075, L501.9985, L506.1000, L503.0105, L500.4050, L500.4100, L100.0100, L503.6550, L502.0250, L503.6150 #### [facility] [address] [place], [place], [phone] Chloride [Moles/Vol] 106 mmol/L Normal 98-107 [facility] Comment on above: Order Comment: Order Date: 01/18/24 Order Info: 785-05 - CMP Order Info: - LIPID Order Info: 2499-11 TIBC Order Info: 2497-08 - FE Order Info: 2275-08 - DARRYL Performed By: #### L 503.6075, L501.9985, L506.1000, L503.0105, L500.4050, L500.4100, L100.0100, L503.6550, L502.0250, L503.6150 #### [facility] [address] [place], [address] CO2 [Moles/Vol] 27.0 mmol/L Normal 21.0-32.0 [facility] Comment on above: Order Comment: Order Date: 01/18/24 Order Info: 785-05 - CMP Order Info: - LIPID Order Info: 2499-11 - TIBC Order Info: 2497-08 - FE Order Info: 2275-08 - DARRYL Performed By: #### L 503.6075, L501.9985, L506.1000, L503.0105, L500.4050, L500.4100, L100.0100, L503.6550, L502.0250, L503.6150 #### [facility] [address] [place], [address] Creatinine [Mass/Vol] 0.77 mg/dL Normal 0.55-1.02 [facility] Comment on above: Order Comment: Order Date: 01/18/24 Order Info: 0786- - CMP Order Info: 32279-5 - LIPID Order Info: 2499-11 TIBC Order Info: 2497-08 Order Info: 2275-08 - Result Comment: The validity of the calculated GFR GFRAA in patients over 70 years has not been determined. Clinical correlation is essential. Performed By: #### L 503.6075, L501.9985, L506.1000, L503.0105, L500.4050, L500.4100, L100.0100, L503.6550, L502.0250, L503.6150 #### [facility] [address] [place], [place], [phone] (337) EST GFR - AA 96 mL/min Normal >60 [facility] Comment on above: Order Comment: Order Date: 01/18/24 Order Info: 0786- - CMP Order Info: 34981-6 - LIPID Order Info: 2499-11 TIBC Order Info: 2497-08 Order Info: 2275-08 - Result Comment: Afri can [place] GFR Calc Performed By: #### L 503.6075, L501.9985, L506.1000, L503.0105, L500.4050, L500.4100, L100.0100, L503.6550, L502.0250, L503.6150 #### [facility] [address] [place], [address] GAP 7 Normal 5-15 [facility] Comment on above: Order Comment: Order Date: 01/18/24 Order Info: 785-05 - CMP Order Info: - LIPID Order Info: 2499-11 TIBC Order Info: 2497-08 FE Order Info: 2275-08 - DARRYL Performed By: #### L 503.6075, L501.9985, L506.1000, L503.0105, L500.4050, L500.4100, L100.0100, L503.6550, L502.0250, L503.6150 #### [facility] [address] [place], [place], [phone] GFR/1.73 sq M.predicted among non-blacks MDRD (S/P/Bld) [Vol rate/Area] 79 mL/min/{1.73_m2} Normal >60 [facility] Comment on above: Order Comment: Order Date: 01/18/24 Order Info: 785-05 - CMP Order Info: - LIPID Order Info: 2499-11 TIBC Order Info: 2497-08 Order Info: 2275-08 - DARRYL Result Comment: Non- GFR Calc Performed By: #### L 503.6075, L501.9985, L506.1000, L503.0105, L500.4050, L500.4100, L100.0100, L503.6550, L502.0250, L503.6150 #### [facility] [address] [place], [place], [phone] (048) Globulin (S) [Mass/Vol] 3.6 g/dL Normal 2.2-4.2 [facility] Comment on above: Order Comment: Order Date: 01/18/24 Order Info: 785-05 - CMP Order Info: - LIPID Order Info: 2499-11 TIBC Order Info: 2497-08 FE Order Info: 2275-08 - DARRYL Performed By: #### L 503.6075, L501.9985, L506.1000, L503.0105, L500.4050, L500.4100, L100.0100, L503.6550, L502.0250, L503.6150 #### [facility] [address] [place], [address] Glucose [Mass/Vol] 110 mg/dL High 74-106 [facility] Comment on above: Order Comment: Order Date: 01/18/24 Order Info: 07- - CMP Order Info: - LIPID Order Info: 2499-11 - TIBC Order Info: 2497-08 - FE Order Info: 2275-08 - DARRYL Result Comment: Fast ing Glucose result from 100 to 125 mg/dL suggests IMPAIRED HOMEOSTASIS per A.D.A. criteria. Performed By: #### L 503.6075, L501.9985, L506.1000, L503.0105, L500.4050, L500.4100, L100.0100, L503.6550, L502.0250, L503.6150 #### [facility] [address] [place], [address] Potassium [Moles/Vol] 4.2 mmol/L Normal 3.5-5.1 [facility] Comment on above: Order Comment: Order Date: 01/18/24 Order Info: 785-05 - CMP Order Info: - LIPID Order Info: 2499-11 TIBC Order Info: 2497-08 FE Order Info: 2275-08 - DARRYL Performed By: #### L 503.6075, L501.9985, L506.1000, L503.0105, L500.4050, L500.4100, L100.0100, L503.6550, L502.0250, L503.6150 #### [facility] [address] [place], [address] Sodium [Moles/Vol] 140 mmol/L Normal 136-145 [facility] Comment on above: Order Comment: Order Date: 01/18/24 Order Info: 07 - CMP Order Info: 63449-9 - LIPID Order Info: 2499-11 - TIBC Order Info: 2497-08 - FE Order Info: 2275-08 - DARRYL Performed By: #### L 503.6075, L501.9985, L506.1000, L503.0105, L500.4050, L500.4100, L100.0100, L503.6550, L502.0250, L503.6150 #### [facility] [address] [place], [place], [id number] T PROT 7.6 g/dL Normal 6.4-8.2 [facility] Comment on above: Order Comment: Order Date: 01/18/24 Order Info: 0786- - CMP Order Info: 01534-8 - LIPID Order Info: 2499-11 - TIBC Order Info: 2497-08 - FE Order Info: 2275-08 - DARRYL Performed By: #### L 503.6075, L501.9985, L506.1000, L503.0105, L500.4050, L500.4100, L100.0100, L503.6550, L502.0250, L503.6150 #### [facility] [address] [place], [address] Urea nitrogen [Mass/Vol] 17 mg/dL Normal 7-18 [facility] Comment on above: Order Comment: Order Date: 01/18/24 Order Info: 0786- - CMP Order Info: [id number] - LIPID Order Info: 2499-11 - TIBC Order Info: 2497-08 - FE Order Info: 2275-08 - DARRYL Performed By: #### L 503.6075, L501.9985, L506.1000, L503.0105, L500.4050, L500.4100, L100.0100, L503.6550, L502.0250, L503.6150 #### [facility] [address] [place], [place], [phone] Ferritinon 04-30-2024 Ferritin [Mass/Vol] 15 ng/mL Normal 8-252 [facility] Comment on above: Order Comment: Order Date: 01/18/24 Order Info: 0786- - CMP Order Info: 01335-5 - LIPID Order Info: 2499-11 - TIBC Order Info: 2497-08 - FE Order Info: 2275-08 - DARRYL Performed By: #### L 503.6075, L501.9985, L506.1000, L503.0105, L500.4050, L500.4100, L100.0100, L503.6550, L502.0250, L503.6150 #### [facility] [address] [place], [place], [phone] ([phone]) Hemoglobin A1con 04-30-2024 HbA1c (Bld) [Mass fraction] 5.9 % High 3.8-5.6 [facility] Comment on above: Order Comment: Order Date: 01/18/24 Order Info: 4548-4 - A1C Result Comment: Norm al < 5.7 % Prediabetic 5.7 - 6.4 % Diabetic >or= 6.5 % Please note range changes. Performed By: #### L 503.6075, L501.9985, L506.1000, L503.0105, L500.4050, L500.4100, L100.0100, L503.6550, L502.0250, L503.6150 #### [facility] [address] [place], [place], [id number] Ironon 04-30-2024 Iron [Mass/Vol] 59 ug/dL Normal 50-170 [facility] Comment on above: Order Comment: Order Date: 01/18/24 Order Info: 0786-1 - CMP Order Info: 97024-2 - LIPID Order Info: 2499-11 - TIBC Order Info: 2497-08 - FE Order Info: 2275-08 - DARRYL Performed By: #### L 503.6075, L501.9985, L506.1000, L503.0105, L500.4050, L500.4100, L100.0100, L503.6550, L502.0250, L503.6150 #### [facility] [address] [place], [address] Iron Binding Capacity,Totalo n 04-30-2024 TIBC 340 ug/dL Normal 250-450 [facility] Comment on above: Order Comment: Order Date: 01/18/24 Order Info: 07 - CMP Order Info: - LIPID Order Info: 2499-11 - TIBC Order Info: 2497-08 - FE Order Info: 2275-08 - DARRYL Performed By: #### L 503.6075, L501.9985, L506.1000, L503.0105, L500.4050, L500.4100, L100.0100, L503.6550, L502.0250, L503.6150 #### [facility] [address] [place], [address] Lipid Profileon 04-30-2024 Cholesterol [Mass/Vol] 156 mg/dL Normal 200 [facility] Comment on above: Order Comment: Order Date: 01/18/24 Order Info: 785-05 - CMP Order Info: - LIPID Order Info: 2499-11 - TIBC Order Info: 2497-08 - FE Order Info: 2275-08 - DARRYL Result Comment: <200 mg/dL Desirable 200-240 mg/dL Borderline >240 mg/dL High Risk Performed By: #### L 503.6075, L501.9985, L506.1000, L503.0105, L500.4050, L500.4100, L100.0100, L503.6550, L502.0250, L503.6150 #### [facility] [address] [place], [address] Cholesterol in HDL [Mass/Vol] 76 mg/dL Normal [facility] Comment on above: Order Comment: Order Date: 01/18/24 Order Info: 0786 - CMP Order Info: - LIPID Order Info: 2499-11 - TIBC Order Info: 2497-08 - FE Order Info: 2275-08 - DARRYL Result Comment: The drugs N-Acetylcysteine and Metamizole may falsely depress this assay. Reference Range HDL <40 mg/dL Low HDL Cholesterol HDL >or= 60 mg/dL High HDL Cholesterol Performed By: #### L 503.6075, L501.9985, L506.1000, L503.0105, L500.4050, L500.4100, L100.0100, L503.6550, L502.0250, L503.6150 #### [facility] [address] [place], [address] Cholesterol in LDL [Mass/Vol] 67 mg/dL Normal 0-130 [facility] Comment on above: Order Comment: Order Date: 01/18/24 Order Info: 0786- - CMP Order Info: [id number] - LIPID Order Info: 2499-11C Order Info: 2497-08 Order Info: 2275-08 - DARRYL Performed By: #### L 503.6075, L501.9985, L506.1000, L503.0105, L500.4050, L500.4100, L100.0100, L503.6550, L502.0250, L503.6150 #### [facility] [address] [place], [address] Cholesterol in VLDL [Mass/Vol] 13 mg/dL Normal 5-40 [facility] Comment on above: Order Comment: Order Date: 01/18/24 Order Info: 0786-1 - CMP Order Info: 76160-2 - LIPID Order Info: 2499-11C Order Info: 2497-08 Order Info: 2275-08 - DARRYL Performed By: #### L 503.6075, L501.9985, L506.1000, L503.0105, L500.4050, L500.4100, L100.0100, L503.6550, L502.0250, L503.6150 #### [facility] [address] [place], [address] Triglyceride [Mass/Vol] 64 mg/dL Normal [facility] Comment on above: Order Comment: Order Date: 01/18/24 Order Info: [id number] - CMP Order Info: [id number] - LIPID Order Info: 2500-7 - TIBC Order Info: 2498-4 - FE Order Info: 2276-4 - DARRYL Result Comment: The drugs N-Acetylcysteine and Metamizole may falsely depress this assay. Serum Triglycerides Reference Interval Normal <150 mg/dL Borderline high 150 - 199 mg/dL High 200 - 499 mg/dL Very High > or = 500 mg/dL Performed By: #### L 503.6075, L501.9985, L506.1000, L503.0105, L500.4050, L500.4100, L100.0100, L503.6550, L502.0250, L503.6150 #### [facility] [address] [place], [place], [id number] Microalb:Creat Ratio,Random URon 04-30-2024 Creatinine [Mass/Vol] 22.20 mg/dL Normal NO RAN GE EST. [facility] Comment on above: Order Comment: Order Date: 01/18/24 Order Info: [id number] - MIACRE Performed By: #### L 503.6075, L501.9985, L506.1000, L503.0105, L500.4050, L500.4100, L100.0100, L503.6550, L502.0250, L503.6150 #### [facility] [address] [place], [place], [id number] MALB:CRE 39.0 mg/g CRE High <30 mg/g CRE [facility] Comment on above: Order Comment: Order Date: 01/18/24 Order Info: 0779-1 - MIACRE Performed By: #### L 503.6075, L501.9985, L506.1000, L503.0105, L500.4050, L500.4100, L100.0100, L503.6550, L502.0250, L503.6150 #### [facility] [address] [place], [place], [id number] MICROALBUMIN,UR 8.7 mg/L Normal NO RANGE EST. [facility] Comment on above: Order Comment: Order Date: 01/18/24 Order Info: 0779-1 - MIACRE Performed By: #### L 503.6075, L501.9985, L506.1000, L503.0105, L500.4050, L500.4100, L100.0100, L503.6550, L502.0250, L503.6150 #### [facility] [address] [place], [place], [id number] Urinalysis, Completeon 04-30 BACTERIA RARE Normal None Seen [facility] Comment on above: Order Comment: Order Date: 01/18/24 Order Info: 0786-1 - CMP Order Info: 10663-5 - LIPID Order Info: 2499-11 - TIBC Order Info: 2497-08 - FE Order Info: 2275-08 - DARRYL Performed By: #### L 503.6075, L501.9985, L506.1000, L503.0105, L500.4050, L500.4100, L100.0100, L503.6550, L502.0250, L503.6150 #### [facility] [address] [place], [place], [id number] WBC 0-5 SEEN Normal 0-5 [facility] Comment on above: Order Comment: Order Date: 01/18/24 Order Info: 0786-1 - CMP Order Info: [id number] - LIPID Order Info: 2499-11 - TIBC Order Info: 2497-08 - FE Order Info: 2275-08 - DARRYL Performed By: #### L 503.6075, L501.9985, L506.1000, L503.0105, L500.4050, L500.4100, L100.0100, L503.6550, L502.0250, L503.6150 #### [facility] [address] [place], [place], [id number] BILIRUBIN URINE Negative Normal Negative [facility] Comment on above: Order Comment: Order Date: 01/18/24 Order Info: 785-05 - CMP Order Info: - LIPID Order Info: 2499-11 TIBC Order Info: 2497-08 FE Order Info: 2275-08 - DARRYL Performed By: #### L 503.6075, L501.9985, L506.1000, L503.0105, L500.4050, L500.4100, L100.0100, L503.6550, L502.0250, L503.6150 #### [facility] [address] [place], [place], [id number] Clarity (U) Clear Normal Clear [facility] Comment on above: Order Comment: Order Date: 01/18/24 Order Info: 785-05 - CMP Order Info: - LIPID Order Info: 2499-11 TIBC Order Info: 2497-08 FE Order Info: 2275-08 - DARRYL Performed By: #### L 503.6075, L501.9985, L506.1000, L503.0105, L500.4050, L500.4100, L100.0100, L503.6550, L502.0250, L503.6150 #### [facility] [address] [place], [place], [id number] Color (U) Straw Normal Yellow [facility] Comment on above: Order Comment: Order Date: 01/18/24 Order Info: 785-05 - CMP Order Info: - LIPID Order Info: 2499-11 TIBC Order Info: 2497-08 FE Order Info: 2275-08 - DARRYL Performed By: #### L 503.6075, L501.9985, L506.1000, L503.0105, L500.4050, L500.4100, L100.0100, L503.6550, L502.0250, L503.6150 #### [facility] [address] [place], [place], [id number] GLUCOSE, UR 1000 mg/dl Abnormal Normal [facility] Comment on above: Order Comment: Order Date: 01/18/24 Order Info: 785-05 - CMP Order Info: - LIPID Order Info: 2499-11 - TIBC Order Info: 2497-08 FE Order Info: 2275-08 - DARRYL Performed By: #### L 503.6075, L501.9985, L506.1000, L503.0105, L500.4050, L500.4100, L100.0100, L503.6550, L502.0250, L503.6150 #### [facility] [address] [place], [address] KETONE UR Negative Normal Negative [facility] Comment on above: Order Comment: Order Date: 01/18/24 Order Info: 785-05 - CMP Order Info: - LIPID Order Info: 2499-11 TIBC Order Info: 2497-08 FE Order Info: 2275-08 - DARRYL Performed By: #### L 503.6075, L501.9985, L506.1000, L503.0105, L500.4050, L500.4100, L100.0100, L503.6550, L502.0250, L503.6150 #### [facility] [address] [place], [place], [address] (420) LEUK ESTERASE 25 /ul Abnormal Negative [facility] Comment on above: Order Comment: Order Date: 01/18/24 Order Info: 785-05 - CMP Order Info: - LIPID Order Info: 2499-11 TIBC Order Info: 2497-08 FE Order Info: 2275-08 - DARRYL Performed By: #### L 503.6075, L501.9985, L506.1000, L503.0105, L500.4050, L500.4100, L100.0100, L503.6550, L502.0250, L503.6150 #### [facility] [address] [place], [place], [address] (746) Nitrite Ql (U) Negative Normal Negative [facility] Comment on above: Order Comment: Order Date: 01/18/24 Order Info: 785-05 - CMP Order Info: - LIPID Order Info: 2499-11 TIBC Order Info: 2497-08 FE Order Info: 2275-08 - DARRYL Performed By: #### L 503.6075, L501.9985, L506.1000, L503.0105, L500.4050, L500.4100, L100.0100, L503.6550, L502.0250, L503.6150 #### [facility] [address] [place], [place], [id number] (254) OCCULT BLOOD-UR Negative Normal Negative [facility] Comment on above: Order Comment: Order Date: 01/18/24 Order Info: 785-05 - CMP Order Info: - LIPID Order Info: 2499-11 TIBC Order Info: 2497-08 FE Order Info: 2275-08 - DARRYL Performed By: #### L 503.6075, L501.9985, L506.1000, L503.0105, L500.4050, L500.4100, L100.0100, L503.6550, L502.0250, L503.6150 #### [facility] [address] [facility] [place], [place], [address] pH UR 6.5 Normal 5.0 - 8.0 [facility] Comment on above: Order Comment: Order Date: 01/18/24 Order Info: 785-05 - CMP Order Info: - LIPID Order Info: 2499-11 TIBC Order Info: 2497-08 FE Order Info: 2275-08 - DARRYL Performed By: #### L 503.6075, L501.9985, L506.1000, L503.0105, L500.4050, L500.4100, L100.0100, L503.6550, L502.0250, L503.6150 #### [facility] [address] [place], [place], [phone] (993) PROT DIPSTX Negative Normal Negative [facility] Comment on above: Order Comment: Order Date: 01/18/24 Order Info: 785-05 - CMP Order Info: - LIPID Order Info: 2499-11 TIBC Order Info: 2497-08 FE Order Info: 2275-08 - DARRYL Performed By: #### L 503.6075, L501.9985, L506.1000, L503.0105, L500.4050, L500.4100, L100.0100, L503.6550, L502.0250, L503.6150 #### [facility] [address] [place], [place], [phone] (161) SP.GR. DIPSTX 1.010 Normal 1.002-1.030 [facility] Comment on above: Order Comment: Order Date: 01/18/24 Order Info: 785-05 - CMP Order Info: - LIPID Order Info: [id number] Order Info: 2497-08 - FE Order Info: 2275-08 - DARRYL Performed By: #### L 503.6075, L501.9985, L506.1000, L503.0105, L500.4050, L500.4100, L100.0100, L503.6550, L502.0250, L503.6150 #### [facility] [address] [place], [place], [id number] UROBILI Normal Normal Normal [facility] Comment on above: Order Comment: Order Date: 01/18/24 Order Info: 785-05 - CMP Order Info: - LIPID Order Info: 2499-11 TIBC Order Info: 2497-08 FE Order Info: 2275-08 - DARRYL Performed By: #### L 503.6075, L501.9985, L506.1000, L503.0105, L500.4050, L500.4100, L100.0100, L503.6550, L502.0250, L503.6150 #### [facility] [address] [place], [place], [phone] (790) EPI,SQUAMOUS 0 SEEN Normal 5-10 [facility] Comment on above: Order Comment: Order Date: 01/18/24 Order Info: 785-05 - CMP Order Info: - LIPID Order Info: 2499-11 TIBC Order Info: 2497-08 - FE Order Info: 2275-08 - DARRYL Performed By: #### L 503.6075, L501.9985, L506.1000, L503.0105, L500.4050, L500.4100, L100.0100, L503.6550, L502.0250, L503.6150 #### [facility] [address] [place], [address] Mucus Ql (Urine sed) 0 SEEN Normal [facility] Comment on above: Order Comment: Order Date: 01/18/24 Order Info: 785-05 - CMP Order Info: - LIPID Order Info: 2499-11 TIBC Order Info: 2497-08 - FE Order Info: 2275-08 - DARRYL Performed By: #### L 503.6075, L501.9985, L506.1000, L503.0105, L500.4050, L500.4100, L100.0100, L503.6550, L502.0250, L503.6150 #### [facility] [address] [place], [place], [address] RBC 0 SEEN Normal 0-5 [facility] Comment on above: Order Comment: Order Date: 01/18/24 Order Info: 785-05 - CMP Order Info: - LIPID Order Info: 2499-11 TIBC Order Info: 2497-08 - FE Order Info: 2275-08 - DARRYL Performed By: #### L 503.6075, L501.9985, L506.1000, L503.0105, L500.4050, L500.4100, L100.0100, L503.6550, L502.0250, L503.6150 #### [facility] [address] [place], [address] Vitamin B12on 12-10-2024 Cobalamin (Vitamin B12) [Mass/Vol] 431 pg/mL Normal 211-911 [facility] Comment on above: Order Comment: Order Date: 01/18/24 Order Info: 2132-01 - B12 Order Info: 63272-7 - VITD25 Performed By: #### L 503.6075, L501.9985, L506.1000, L503.0105, L500.4050, L500.4100, L100.0100, L503.6550, L502.0250, L503.6150 #### [facility] [address] [facility] [place], [address] Vitamin D,25 Hydroxyon 04-30 Vitamin D 25-OH 52.6 ng/mL Normal [facility] Comment on above: Order Comment: Order Date: 01/18/24 Order Info: 2132-01 - B12 Order Info: 12970-8 - VITD25 Result Comment: Salma min D 25(OH) Status Range Deficiency <20 ng/mL (50nmol/L) Insufficiency 20 - 30 ng/mL (50 - 75 nmol/L) Sufficiency 30 - 100 ng/mL (75 - 250 nmol/L) Toxicity >100 ng/mL (>250 nmol/L) Performed By: #### L 503.6075, L501.9985, L506.1000, L503.0105, L500.4050, L500.4100, L100.0100, L503.6550, L502.0250, L503.6150 #### [facility] [address] [place], [address] Basic metabolic 2000 panelOr dered By: Rocio Bai on 04-05-2024 Anion gap [Moles/Vol] 13 mmol/L 8 - 15 mmol/L [facility] Calcium [Mass/Vol] 10.6 mg/dL High 8.5 - 10. 2 mg/dL [facility] Chloride [Moles/Vol] 101 mmol/L 98 - 10 7 mmol/L [facility] CO2 [Moles/Vol] 26 mmol/L 22 - 30 mmol/L [facility] Creatinine [Mass/Vol] 0.79 mg/dL 0.58 - 0.96 mg/dL [facility] GFR/1.73 sq M.predicted among non-blacks MDRD (S/P/Bld) [Vol rate/Area] 83 mL/min/{1.73_m2} - PINF [facility] Comment on above: Estimated Glomerular Filtration Rate (eGFR) is calculated using the 2020 CKD-EPI creatinine equation. This equation utilizes serum creatinine, sex, and age as parameters. The creatinine assay has traceable calibration to isotope dilution-mass spectrometry. Refer to KDIGO guidelines for clinical interpretation. In patients with unstable renal function, e.g. those with acute kidney injury, the eGFR may not accurately reflect actual GFR. Glucose [Mass/Vol] 106 mg/dL High 74 - 99 mg/dL [facility] Comment on above: The [place] Di[employer] Association (ADA) provides guidance for cutoff values for fasting glucose and random glucose. The ADA defines fasting as no caloric intake for at least 8 hours. Fasting plasma glucose results between 100 to 125 mg/dL indicate increased risk for diabetes (prediabetes). Fasting plasma glucose results greater than or equal to 126 mg/dL meet the criteria for diagnosis of diabetes. In the absence of unequivocal hyperglycemia, results should be confirmed by repeat testing. In a patient with classic symptoms of hyperglycemia or hyperglycemic crisis, random plasma glucose results greater than or equal to 200 mg/dL meet the criteria for diagnosis of diabetes. Reference: Standards of Medical Care in Diabetes 2016, [place] [employer]. Diabetes Care. 2016.39(Suppl 1). Interpretation and review of laboratory results Abnormal [facility] Potassium [Moles/Vol] 3.9 mmol/L 3.7 - 5.1 mmol/L [facility] Sodium [Moles/Vol] 140 mmol/L 136 - 144 mmol/L [facility] Urea nitrogen [Mass/Vol] 17 mg/dL 7 - 21 mg/d L [facility] Basic metabolic 2000 panelon 04-05-2024 Anion gap [Moles/Vol] 13 mmol/L Normal -15 [facility] Comment on above: Order Comment: Speci men Type: URINE SPECIMEN Ordering Facility: [facility] Address: [address] [place], [place] [address] [address] Performed By: #### L [id number] #### [facility] CLIA [id number] [address] [place] [address] [place] Calcium [Mass/Vol] 10.6 mg/dL High 8.5-10.2 [facility] Comment on above: Order Comment: Speci men Type: URINE SPECIMEN Ordering Facility: [facility] Address: [address] [place] [address] Performed By: #### L [id number] #### [facility] CLIA [id number] [address] [place] [address] [place] Chloride [Moles/Vol] 101 mmol/L Normal 98-107 [facility] Comment on above: Order Comment: Speci men Type: URINE SPECIMEN Ordering Facility: [facility] Address: [address] [place] [address] Performed By: #### L [id number] #### [facility] CLIA [id number] [address] [place] [address] [place] CO2 [Moles/Vol] 26 mmol/L Normal 22-30 [facility] Comment on above: Order Comment: Speci men Type: URINE SPECIMEN Ordering Facility: [facility] Address: [address] [place] [address] Performed By: #### L [id number] #### [facility] CLIA [id number] [address] [place] [address] [place] Creatinine [Mass/Vol] 0.79 mg/dL Normal 0.58-0.96 [facility] Comment on above: Order Comment: Speci men Type: URINE SPECIMEN Ordering Facility: [facility] Address: [address] [place] [address] Performed By: #### L [id number] #### [facility] CLIA [id number] [address] [place] [address] [place] Creatinine and Glomerular filtration rate.predicted panel (S/P/Bld) 83 mL/min/1.73m??? Normal >=60 [facility] Comment on above: Order Comment: Speci men Type: URINE SPECIMEN Ordering Facility: [facility] Address: [address] [place] [address] Result Comment: Keke mated Glomerular Filtration Rate (eGFR) is calculated using the 2020 CKD-EPI creatinine equation. This equation utilizes serum creatinine, sex, and age as parameters. The creatinine assay has traceable calibration to isotope dilution-mass spectrometry. Refer to KDIGO guidelines for clinical interpretation. In patients with unstable renal function, e.g. those with acute kidney injury, the eGFR may not accurately reflect actual GFR. Performed By: #### L [id number] #### [facility] CLIA [id number] [address] [place] [address] [place] Glucose [Mass/Vol] 106 mg/dL High 74-99 [facility] Comment on above: Order Comment: Speci vic Type: URINE SPECIMEN Ordering Facility: [facility] Address: [address] [place] [address] Result Comment: The [place] Diabetes Association (ADA) provides guidance for cutoff values for fasting glucose and random glucose. The ADA defines fasting as no caloric intake for at least 8 hours. Fasting plasma glucose results between 100 to 125 mg/dL indicate increased risk for diabetes (prediabetes). Fasting plasma glucose results greater than or equal to 126 mg/dL meet the criteria for diagnosis of diabetes. In the absence of unequivocal hyperglycemia, results should be confirmed by repeat testing. In a patient with classic symptoms of hyperglycemia or hyperglycemic crisis, random plasma glucose results greater than or equal to 200 mg/dL meet the criteria for diagnosis of diabetes. Reference: Standards of Medical Care in Diabetes 2016, [place] [employer]. Diabetes Care. 2016.39(Suppl 1). Performed By: #### L [id number] #### [facility] CLIA [id number] [address] [place] [address] [place] Potassium [Moles/Vol] 3.9 mmol/L Normal 3.7-5.1 [facility] Comment on above: Order Comment: Sulma ho Type: URINE SPECIMEN Ordering Facility: [facility] Address: [address] [place] [address] Performed By: #### L [id number] #### [facility] CLIA [id number] [address] [place] [address] [place] Sodium [Moles/Vol] 140 mmol/L Normal 136-144 [facility] Comment on above: Order Comment: Speci men Type: URINE SPECIMEN Ordering Facility: [facility] Address: [address] [place] [address] Performed By: #### L [id number] #### [facility] CLIA [id number] [address] [place] [address] [place] Urea nitrogen [Mass/Vol] 17 mg/dL Normal 7-21 [facility] Comment on above: Order Comment: Speci men Type: URINE SPECIMEN Ordering Facility: [facility] Address: [address] [place] [address] Performed By: #### L [id number] #### [facility] CLIA [id number] [address] [place] [address] [place] CBC W Auto Differential pane l (Bld)on 04-05-2024 Basophils (Bld) [#/Vol] 0.04 10*3/uL [facility] Basophils/100 WBC (Bld) 0.5 % [facility] Differential cell count method Nom (Bld) Auto [facility] Eosinophils (Bld) [#/Vol] 0.07 10*3/uL [facility] Eosinophils/100 WBC (Bld) 0.8 % [facility] Erythrocyte distribution width (RBC) [Ratio] 14.6 % 11.5 - 15.0 % [facility] Hematocrit (Bld) [Volume fraction] 39.8 % 36.0 - 46.0 % [facility] Hemoglobin (Bld) [Mass/Vol] 12.9 g/dL 11.5 - 15.5 g/dL [facility] Immature granulocytes (Bld) [#/Vol] 0.04 10*3/uL [facility] Immature granulocytes/100 WBC (Bld) 0.5 % [facility] Lymphocytes (Bld) [#/Vol] 1.87 10*3/uL [facility] Lymphocytes/100 WBC (Bld) 22.6 % [facility] MCH (RBC) [Entitic mass] 28.5 pg 26. 0 - 34.0 pg [facility] MCHC (RBC) [Mass/Vol] 32.4 g/dL 30.5 - 36.0 g/dL [facility] MCV (RBC) [Entitic vol] 87.9 fL 80.0 - 100.0 fL [facility] Monocytes (Bld) [#/Vol] 0.53 10*3/uL [facility] Monocytes/100 WBC (Bld) 6.4 % C [facility] Neutrophils (Bld) [#/Vol] 5.71 10*3/uL [facility] Neutrophils/100 WBC (Bld) 69.2 % [facility] Nucleated [facility] (Bld) [#/Vol] [facility] Nucleated RBC/100 WBC (Bld) [Ratio] 0.0 % /100 WBC [facility] Platelet mean volume (Bld) [Entitic vol] 10.2 fL 9.0 - 12.7 fL [facility] Platelets (Bld) [#/Vol] 276 10*3/uL [facility] RBC (Bld) [#/Vol] 4.53 10*6/uL 3.90 - 5.2 0 m/uL [facility] WBC (Bld) [#/Vol] 8.26 10*3/uL [facility] Basophils (Bld) [#/Vol] 0.04 10*3/uL Normal <0.11 [facility] Comment on above: Order Comment: Speci men Type: BLOOD SPECIMEN Ordering Facility: [facility] Address: [address] [place] [address] Performed By: #### 5 7021-8 #### [facility] CLIA [id number] [address] [place] [address] [place] Basophils/100 WBC (Bld) 0.5 % Normal C [facility] Comment on above: Order Comment: Speci men Type: BLOOD SPECIMEN Ordering Facility: [facility] Address: [address] [place] [address] Performed By: #### 5 7021-8 #### [facility] CLIA [id number] [address] [place] [address] [place] Differential cell count method Nom (Bld) Auto Normal [facility] Comment on above: Order Comment: Speci men Type: BLOOD SPECIMEN Ordering Facility: [facility] Address: [address] [place] [address] Performed By: #### 5 7021-8 #### [facility] CLIA [id number] [address] [place] [address] [place] Eosinophils (Bld) [#/Vol] 0.07 10*3/uL Normal <0.46 [facility] Comment on above: Order Comment: Speci men Type: BLOOD SPECIMEN Ordering Facility: [facility] Address: [address] [place] [address] Performed By: #### 5 7021-8 #### [facility] CLIA [id number] [address] [place] [address] [place] Eosinophils/100 WBC (Bld) 0.8 % Normal [facility] Comment on above: Order Comment: Speci men Type: BLOOD SPECIMEN Ordering Facility: [facility] Address: [address] [place] [address] Performed By: #### 5 7021-8 #### [facility] CLIA [id number] [address] [place] [address] [place] Erythrocyte distribution width (RBC) [Ratio] 14.6 % Normal 11.5-15.0 [facility] Comment on above: Order Comment: Speci men Type: BLOOD SPECIMEN Ordering Facility: [facility] Address: [address] [place] [address] Performed By: #### 5 7021-8 #### [facility] CLIA [id number] [address] [place] [address] [place] Hematocrit (Bld) [Volume fraction] 39.8 % Normal 36.0-46.0 [facility] Comment on above: Order Comment: Speci men Type: BLOOD SPECIMEN Ordering Facility: [facility] Address: [address] [place], [place] [address] Performed By: #### 5 7021-8 #### [facility] CLIA [id number] [address] [place] [address] [place] Hemoglobin (Bld) [Mass/Vol] 12.9 g/dL Normal 11.5-15.5 [facility] Comment on above: Order Comment: Speci men Type: BLOOD SPECIMEN Ordering Facility: [facility] Address: [address] [place], [place] [address] Performed By: #### 5 7021-8 #### [facility] CLIA [id number] [address] [place] [address] [place] Immature granulocytes (Bld) [#/Vol] 0.04 10*3/uL Normal <0.10 [facility] Comment on above: Order Comment: Speci men Type: BLOOD SPECIMEN Ordering Facility: [facility] Address: [address] [place] [address] Performed By: #### 5 7021-8 #### [facility] CLIA [id number] [address] [place] [address] [place] Immature granulocytes/100 WBC (Bld) 0.5 % Normal [facility] Comment on above: Order Comment: Speci men Type: BLOOD SPECIMEN Ordering Facility: [facility] Address: [address] [place] [address] Performed By: #### 5 7021-8 #### [facility] CLIA [id number] [address] [place] [address] [place] Lymphocytes (Bld) [#/Vol] 1.87 10*3/uL Normal 1.00-4.0 0 [facility] Comment on above: Order Comment: Speci men Type: BLOOD SPECIMEN Ordering Facility: [facility] Address: [address] [place], [place] [address] Performed By: #### 5 7021-8 #### [facility] CLIA [id number] [address] [place] [address] [place] Lymphocytes/100 WBC (Bld) 22.6 % Normal [facility] Comment on above: Order Comment: Speci men Type: BLOOD SPECIMEN Ordering Facility: [facility] Address: [address] [place] [address] Performed By: #### 5 7021-8 #### [facility] CLIA [id number] [address] [place] [address] [place] MCH (RBC) [Entitic mass] 28.5 pg Normal 26.0-34.0 [facility] Comment on above: Order Comment: Speci men Type: BLOOD SPECIMEN Ordering Facility: [facility] Address: [address] [place] [address] Performed By: #### 5 7021-8 #### [facility] CLIA [id number] [address] [place] [address] [place] MCHC (RBC) [Mass/Vol] 32.4 g/dL Normal 30.5-36.[address] [facility] Comment on above: Order Comment: Speci men Type: BLOOD SPECIMEN Ordering Facility: [facility] Address: [address] [place] [address] Performed By: #### 5 7021-8 #### [facility] CLIA [id number] [address] [place] [address] [place] MCV (RBC) [Entitic vol] 87.9 fL Normal 80.0-100.0 [facility] Comment on above: Order Comment: Speci men Type: BLOOD SPECIMEN Ordering Facility: [facility] Address: [address] [place] [address] Performed By: #### 5 7021-8 #### [facility] [id number] [address] [place], [place] [address] [place] Monocytes (Bld) [#/Vol] 0.53 10*3/uL Normal <0.87 [facility] Comment on above: Order Comment: Speci men Type: BLOOD SPECIMEN Ordering Facility: [facility] Address: [address] [place] [address] Performed By: #### 5 7021-8 #### [facility] CLIA [id number] [address] [place] [address] [place] Monocytes/100 WBC (Bld) 6.4 % Normal [facility] Comment on above: Order Comment: Speci men Type: BLOOD SPECIMEN Ordering Facility: [facility] Address: [address] [place] [address] Performed By: #### 5 7021-8 #### [facility] CLIA [id number] [address] [place] [address] [place] Neutrophils (Bld) [#/Vol] 5.71 10*3/uL Normal 1.45-7.5 0 [facility] Comment on above: Order Comment: Speci men Type: BLOOD SPECIMEN Ordering Facility: [facility] Address: [address] [place] [address] Performed By: #### 5 7021-8 #### [facility] CLIA [id number] [address] [place] [address] [place] Neutrophils/100 WBC (Bld) 69.2 % Normal [facility] Comment on above: Order Comment: Speci men Type: BLOOD SPECIMEN Ordering Facility: [facility] Address: [address] [place] [address] Performed By: #### 5 7021-8 #### [facility] CLIA [id number] [address] [place] [address] [place] Nucleated RBC (Bld) [#/Vol] 10*3/uL Normal <0.01 [facility] Comment on above: Order Comment: Speci men Type: BLOOD SPECIMEN Ordering Facility: [facility] Address: [address] [place] [address] Performed By: #### 5 7021-8 #### [facility] CLIA [id number] [address] [place] [address] [place] Nucleated RBC/100 WBC (Bld) [Ratio] 0.0 /100 WBC Normal [facility] Comment on above: Order Comment: Speci men Type: BLOOD SPECIMEN Ordering Facility: [facility] Address: [address] [place] [address] Performed By: #### 5 7021-8 #### [facility] CLIA [id number] [address] [place] [address] [place] Platelet mean volume (Bld) [Entitic vol] 10.2 fL Normal 9.0-12.7 [facility] Comment on above: Order Comment: Speci men Type: BLOOD SPECIMEN Ordering Facility: [facility] Address: [address] [place] [address] Performed By: #### 5 7021-8 #### [facility] CLIA [id number] [address] [place] [address] [place] Platelets (Bld) [#/Vol] 276 10*3/uL Normal 150-400 [facility] Comment on above: Order Comment: Speci men Type: BLOOD SPECIMEN Ordering Facility: [facility] Address: [address] [place] [address] Performed By: #### 5 7021-8 #### [facility] CLIA [id number] [address] [place] [address] [place] RBC (Bld) [#/Vol] 4.53 10*6/uL Normal 3.90-5.20 [facility] Comment on above: Order Comment: Speci men Type: BLOOD SPECIMEN Ordering Facility: [facility] Address: [address] [place] [address] Performed By: #### 5 7021-8 #### [facility] CLIA [id number] [address] [place] [address] [place] WBC (Bld) [#/Vol] 8.26 10*3/uL Normal 3.70-11.00 [facility] Comment on above: Order Comment: Speci men Type: BLOOD SPECIMEN Ordering Facility: [facility] Address: [facility] [place] [address] Performed By: #### 5 7021-8 #### [facility] CLIA [id number] [address] [place] [place] [id number] [place] CNOVSPon 04-05-2024 CNOVSP Visit (SP) Office (HEMAWS) MARTHA FABIAN ([id number]) 1955 F Date Time Provider Department 04/05/24 10:30 AM JUAN RAMON PURCELL During your visit today, we recorded the following information about you: Temperature Pulse Blood pressure Weight 97.4 degrees 82/minute 133/86 69.4 kg Height 1.575 m Juan Ramon Purcell MD 04/05/2024 10:53 AM Signed HISTORY OF PRESENT ILLNESS: Martha Fabian is a 68 year old female referred for evaluation of monoclonal gammopathy, IgM subtype. Test was ordered by dermatology, was seeing them for psoriasis. No fevers or sweats. We reviewed available lab results, discussed possible significance of monoclonal gammopathy. CLINICAL IMPRESSION: IgM monoclonal gammopathy RECOMMENDATION/PLAN: 1. Will do full lab work up, follow up by phone. Possible CT scans in near future. Written and verbal health teaching given to patient, patient verbalizes understanding and agrees with treatment plan. PAST MEDICAL HISTORY Diagnosis Date DM (diabetes mellitus), type 2 (HCC) 09/05/2013 GERD (gastroesophageal reflux disease) HTN (hypertension) 09/05/2013 Hyperlipemia 09/05/2013 Low iron Osteopenia Psoriasis 09/05/2013 Rosacea 09/05/2013 PAST SURGICAL HISTORY Procedure Laterality Date CATARACT EXTRACTION HX Bilateral COLONOSCOPY FLX DX W/COLLJ SPEC WHEN PFRMD 02/24/2014 repeat 10 yrs D+C x 3 FECAL OCCULT BLOOD TEST 08/22/2017 negative PAST SURGICAL HISTORY OF 1996 TAWANDA BSO PAST SURGICAL HISTORY OF C/S x 2 FAMILY HISTORY Problem Relation Age of Onset Hypertension Mother Lipids Mother Stroke Mother Lung Cancer Mother Alzheimer's Disease Father Coronary Artery Disease Father 60's Hypertension Father Kidney Disease Father Lipids Father Cancer Maternal Grandmother Colon Cancer Maternal Grandfather 50's Alzheimer's Disease Paternal Grandmother Kidney Disease Paternal Uncle Social History Tobacco Use Smoking status: Never Smokeless tobacco: Never Substance Use Topics Alcohol use: No Drug use: No ALLERGIES: ALLERGIES Allergen Reactions Jardiance [Empaglif* Other: See Comments Recurrent yeast infection CURRENT OUTPATIENT MEDICATIONS: rosuvastatin (CRESTOR) 20 mg tablet Take 20 mg by mouth once daily. cholecalciferol (VITAMIN D) 1,000 unit tab tablet Take two tablets by mouth once daily. calcium carbonate/vitamin D3 (CALCIUM + D ORAL) Take 1 tablet by mouth two times a day. clobetasol (TEMOVATE) 0.05 % ointment Apply 1 application to affected area two times a day as needed. omeprazole (PRILOSEC) 20 mg capsule Take 20 mg by mouth once daily. FARXIGA 10 mg tablet Take 10 mg by mouth once daily. ferrous sulfate (IRON) 325 mg (65 mg iron) tablet Take 325 mg by mouth two times a day. acetaminophen (TYLENOL EXTRA STRENGTH) 500 mg tablet Take 1,000 mg by mouth every 8 hours as needed. lisinopril (ZESTRIL, PRINIVIL) 20 mg tablet Take 1 tablet by mouth once daily. (Patient taking differently: Take 20 mg by mouth two times a day.) verapamil (CALAN, ISOPTIN) 120 mg tablet Take 1 tablet by mouth twice daily. metFORMIN (GLUCOPHAGE) 1,000 mg tablet Take 1 tablet by mouth twice daily with meals. multivitamin tablet Take 1 tablet by mouth once daily. Aspirin 81 mg tab Take 1 tablet by mouth once daily. Take with food. Lovastatin 40 mg tablet Take 1 tablet by mouth daily at bedtime. For cholesterol. diclofenac, EC, (VOLTAREN) 75 mg EC tablet Take 1 tablet by mouth twice daily. For pain/inflammation. Take with food. urea (CARMOL) 40 % crea Apply 1 application to affected area as needed. Cholecalciferol, Vitamin D3, 5,000 unit cap Take 1 capsule by mouth once daily. niacin sustained release (NIASPAN) 1,000 mg CR tablet Take 1 tablet by mouth twice daily. REVIEW OF SYSTEMS: GENERAL: No fever, night sweats, weight loss or malaise. All other reviewed and negative other than HPI. PHYSICAL EXAMINATION: VITAL SIGNS: BP 133/86 Pulse 82 Temp (Src) 97.4 (Temporal) Ht 5' 2 (1.58m) Wt 153 lb (69.4kg) SpO2 99% BMI 27.98 kg/(m2). GENERAL APPEARANCE: Well appearing, in no acute distress, alert and oriented x3, well-hydrated, well nourished. No palpable adenopathy or splenomegaly. I spent a total of 45 minutes on the date of the service which included preparing to see the patient, [id number] patient care, completing clinical documentation, obtaining and/or reviewing separately obtained history, performing a medically appropriate examination, counseling and educating the patient/family/caregive r, ordering medications, tests, or procedures, independently interpreting results (not separately reported), and communicating results to the patient/family/caregive r. Electronically Signed: Juan Ramon Purcell MD April 05, 2024 10:20 AM Referring Provider: SCOTT STEELE [[id number]] Allergies As of Date: 04/05/ (more content not included)... Normal [facility] IMMUNOFIXATION SCREEN, SERUM on 04-05-2024 INTERPRETATION (MPA) Poorly defined agnes on of restricted mobility in IgG and kappa lanes. Pattern is less well defined or fainter than typically seen in monoclonal gammopathy. This could represent either an atypical presentation of polyclonal immunoglobulins or the presence of a low level IgG kappa monoclonal gammopathy. If clinically indicated, urine monoclonal protein analysis and serum free light chain measurements are recommended to evaluate further for monoclonal gammopathy. Clinical correlation is necessary. Normal [facility] Comment on above: Order Comment: Speci men Type: URINE SPECIMEN Ordering Facility: [facility] Address: [address] [id number] Performed By: #### L [id number] #### [facility] CLIA [id number] [address] [place] [address] [place] MPA RESULT A poorly defined reg ion of restricted mobility is present that may represent an M protein. Abnormal No M protein is identified. [facility] Comment on above: Order Comment: Speci men Type: URINE SPECIMEN Ordering Facility: [facility] Address: [address] [place] [address] Performed By: #### L [id number] #### [facility] CLIA [id number] [address] [place] [address] [place] STAFF REVIEW (MPA) Reviewed by Daniel Hannon MD, Ph.D ([id number]) Normal [facility] Comment on above: Order Comment: Speci men Type: URINE SPECIMEN Ordering Facility: [facility] Address: [address] [place] [address] Performed By: #### L [id number] #### [facility] CLIA [id number] [address] [place] [address] [place] IMMUNOGLOBULINS,IGG,IGA,IGMo n 04-05-2024 IgA [Mass/Vol] 171 mg/dL Normal 70-400 [facility] Comment on above: Order Comment: Speci men Type: BLOOD SPECIMEN Ordering Facility: [facility] Address: [address] [place] [address] Performed By: #### S ERIMM #### [facility] CLIA [id number] [address] [place] [address] [place] IgG [Mass/Vol] 730 mg/dL Normal 700-1600 [facility] Comment on above: Order Comment: Speci men Type: BLOOD SPECIMEN Ordering Facility: [facility] Address: [address] [place] [address] Performed By: #### S ERIMM #### [facility] CLIA [id number] [address] [place] [address] [place] IgM [Mass/Vol] 515 mg/dL High 40-230 [facility] Comment on above: Order Comment: Speci men Type: BLOOD SPECIMEN Ordering Facility: [facility] Address: [address] [place] [address] Performed By: #### S MELISA #### [facility] CLIA [id number] [address] [place] [address] [place] KAPPA/LA,FREE,SERon 2023 Immunoglobulin light chains.kappa.free (S) [Mass/Vol] 30.9 mg/L High 3.3-19.4 [facility] Comment on above: Order Comment: Speci men Type: BLOOD SPECIMEN Ordering Facility: [facility] Address: [address] [place] [address] Result Comment: Rare ly, increased serum free light chains levels may not be detected or accurately quantified due to prozone phenomenon or in high viscosity samples using this immunoturbidimetric assay. Correlation with other laboratory results and clinical findings is recommended. The Decordova Free Light Chain was performed using the Binding Site Optilite immunoturbidimetric method. Result obtained with different assay methods or kits cannot be used interchangeably. Performed By: #### K LFRS #### [facility] CLIA [id number] [address] [place] [address] [place] Immunoglobulin light chains.kappa/Immunoglobul in light chains.lambda (S) [Mass ratio] 1.22 Normal 0.26-1.65 [facility] Comment on above: Order Comment: Speci men Type: BLOOD SPECIMEN Ordering Facility: [facility] Address: [address] [place] [address] Performed By: #### K LFRS #### [facility] CLIA [id number] [address] [place] [address] [place] Immunoglobulin light chains.lambda.free [Mass/Vol] 25.4 mg/L Normal 5.7-26.3 [facility] Comment on above: Order Comment: Speci men Type: BLOOD SPECIMEN Ordering Facility: [facility] Address: [address] [place] [address] Result Comment: Rare ly, increased serum free light chains levels may not be detected or accurately quantified due to prozone phenomenon or in high viscosity samples using this immunoturbidimetric assay. Correlation with other laboratory results and clinical findings is recommended. The Lambda Free Light Chain was performed using the Binding Site Optilite immunoturbidimetric method. Result obtained with different assay methods or kits cannot be used interchangeably. Performed By: #### K LFRS #### [facility] CLIA [id number] [address] [place] [address] [place] PROTEIN ELECTROPHORESIS SERU M (P)on 04-05-2024 Albumin [Mass/Vol] 4.59 g/dL Normal 3.43-5.41 [facility] Comment on above: Order Comment: Speci men Type: URINE SPECIMEN Ordering Facility: [facility] Address: [address] [place] [address] Performed By: #### L [id number] #### [facility] CLIA [id number] [address] [place] [address] [place] Alpha 1 globulin Elph [Mass/Vol] 0.26 g/dL Normal 0.18-0.43 [facility] Comment on above: Order Comment: Speci men Type: URINE SPECIMEN Ordering Facility: [facility] Address: [address] [place] [address] Performed By: #### L [id number] #### [facility] CLIA [id number] [address] [place] [address] [place] Alpha 2 globulin Elph [Mass/Vol] 0.69 g/dL Normal 0.42-0.98 [facility] Comment on above: Order Comment: Speci men Type: URINE SPECIMEN Ordering Facility: [facility] Address: [address] [place] [address] Performed By: #### L [id number] #### [facility] CLIA [id number] [address] [place] [address] [place] Beta globulin Elph [Mass/Vol] 0.81 g/dL Normal 0.61-1.17 [facility] Comment on above: Order Comment: Speci men Type: URINE SPECIMEN Ordering Facility: [facility] Address: [address] [place] [address] Performed By: #### L [id number] #### [facility] CLIA [id number] [address] [place] [address] [place] Gamma globulin Elph [Mass/Vol] 0.85 g/dL Normal 0.53-1.51 [facility] Comment on above: Order Comment: Speci men Type: URINE SPECIMEN Ordering Facility: [facility] Address: [address] [place] [address] Performed By: #### L [id number] #### [facility] CLIA [id number] [address] [place] [address] [place] M-PROTEIN LOCATION Normal [facility] Comment on above: Order Comment: Speci men Type: URINE SPECIMEN Ordering Facility: [facility] Address: [address] [place] [address] Result Comment: Not Applicable. Performed By: #### L [id number] #### [facility] CLIA [id number] [address] [place] [address] [place] Protein Fractions [Interp] No definitive M protein is identified on protein electrophoresis. Normal No definitive M protein is identified on protein electrophore sis. [facility] Comment on above: Order Comment: Speci men Type: URINE SPECIMEN Ordering Facility: [facility] Address: [address] [place] [address] Performed By: #### L [id number] #### [facility] CLIA [id number] [address] [place] [address] [place] Protein.monoclonal Elph [Mass/Vol] 0.00 g/dL Normal <=0.00 [facility] Comment on above: Order Comment: Speci men Type: URINE SPECIMEN Ordering Facility: [facility] Address: [address] [place] [address] Performed By: #### L [id number] #### [facility] CLIA [id number] [address] [place] [address] [place] SPE STAFF REVIEW Reviewed by Daniel Hannon MD, Ph.D ([id number]) Normal [facility] Comment on above: Order Comment: Speci men Type: URINE SPECIMEN Ordering Facility: [facility] Address: [address] [place] [address] Performed By: #### L [id number] #### [facility] CLIA [id number] [address] [place] [address] [place] Prot SerPl-mCncon 04-05-2024 Protein [Mass/Vol] 7.2 g/dL Normal 6.3-8.0 [facility] Comment on above: Order Comment: Speci men Type: URINE SPECIMEN Ordering Facility: [facility] Address: [address] [place] [address] Performed By: #### L [id number] #### [facility] CLIA [id number] [address] [place] [address] [place] Prot Ur-mCncon 04-05-2024 Protein (U) [Mass/Vol] 6 mg/dL Normal 0-20 [facility] Comment on above: Order Comment: Speci men Type: URINE SPECIMEN Ordering Facility: [facility] Address: [address] [place] [address] Performed By: #### 2 888-6 #### [facility] CLIA [id number] [address] [place] [address] [place] URINE PROTEIN ELECTROPHORESI S RANDOM (P)on 04-05-2024 Albumin Elph (U) [Mass fraction] 51.02 % Normal [facility] Comment on above: Order Comment: Speci men Type: URINE SPECIMEN Ordering Facility: [facility] Address: [address] [place], [place] [address] Performed By: #### L [id number] #### [facility] CLIA [id number] [facility] [place] [address] [place] Alpha 1 globulin Elph (U) [Mass fraction] 2.93 % Normal [facility] Comment on above: Order Comment: Speci men Type: URINE SPECIMEN Ordering Facility: [facility] Address: [address] [place] [address] Performed By: #### L [id number] #### [facility] CLIA [id number] [address] [place] [address] [place] Alpha 2 globulin Elph (U) [Mass fraction] 14.72 % Normal [facility] Comment on above: Order Comment: Speci men Type: URINE SPECIMEN Ordering Facility: [facility] Address: [address] [place] [address] Performed By: #### L [id number] #### [facility] CLIA [id number] [address] [place] [address] [place] Beta globulin Elph (U) [Mass fraction] 15.45 % Normal [facility] Comment on above: Order Comment: Speci men Type: URINE SPECIMEN Ordering Facility: [facility] Address: [address] [place] [address] Performed By: #### L [id number] #### [facility] CLIA [id number] [address] [place] [address] [place] Gamma globulin Elph (U) [Mass fraction] 15.88 % Normal [facility] Comment on above: Order Comment: Speci men Type: URINE SPECIMEN Ordering Facility: [facility] Address: [address] [place] [address] Performed By: #### L [id number] #### [facility] CLIA [id number] [address] [place] [address] [place] Protein Fractions Elph Jose (U) [Interp] No definitive M protein is identified on protein electrophoresis. Normal No definitive M protein is identified on protein electrophore sis. [facility] Comment on above: Order Comment: Speci men Type: URINE SPECIMEN Ordering Facility: [facility] Address: [address] [place] [address] Performed By: #### L [id number] #### [facility] CLIA [id number] [address] [place] [address] [place] STAFF REVIEW (URINE ELECTRO) Reviewed by Daniel Hannon MD, Ph.D ([id number]) Normal [facility] Comment on above: Order Comment: Speci men Type: URINE SPECIMEN Ordering Facility: [facility] Address: [address] [place] [address] Performed By: #### L [id number] #### [facility] CLIA [id number] [address] [place] [address] [place] Immunoglobulin Aon 4 IMMUNOGLOB A QN 186 mg/dL Normal 87-352 [facility] Comment on above: Order Comment: Order Date: 01/18/24 Order Info: [id number] - CMP Order Info: [id number] - LIPID Order Info: [id number] TIBC Order Info: [id number] Order Info: [id number] - DARRYL Performed By: #### L 503.6075, L501.9985, L506.1000, L503.0105, L500.4050, L500.4100, L100.0100, L503.6550, L502.0250, L503.6150 #### [facility] [address] [place], [place], [address] Immunoglobulin Rjai 4 IMMUNOGLOB E QN 41 IU/mL Normal 6-495 [facility] Comment on above: Order Comment: Order Date: 01/18/24 Order Info: [id number] - CMP Order Info: [id number] - LIPID Order Info: [id number] - TIBC Order Info: [id number] Order Info: [id number] - DARRYL Performed By: #### L 503.6075, L501.9985, L506.1000, L503.0105, L500.4050, L500.4100, L100.0100, L503.6550, L502.0250, L503.6150 #### [facility] [address] [place], [address] Immunoglobulin Torrey 4 IMMUNOGLOB G QN 785 mg/dL Normal 586-1602 [facility] Comment on above: Order Comment: Order Date: 01/18/24 Order Info: [id number] - CMP Order Info: [id number] - LIPID Order Info: [id number] TIBC Order Info: [id number] Order Info: [id number] - DARRYL Performed By: #### L 503.6075, L501.9985, L506.1000, L503.0105, L500.4050, L500.4100, L100.0100, L503.6550, L502.0250, L503.6150 #### [facility] [address] [place], [place], [address] [phone] Immunoglobulin Mon 4 IMMUNOGLOB M QN 559 mg/dL High 26-217 [facility] Comment on above: Order Comment: Order Date: 01/18/24 Order Info: [id number] - CMP Order Info: [id number] - LIPID Order Info: [id number] Order Info: [id number] Order Info: [id number] - DARRYL Result Comment: Perf ormed at: - [facility] [address] [id number] [employer] Worker: Han Das PhD, Phone: [phone] Performed By: #### L 503.6075, L501.9985, L506.1000, L503.0105, L500.4050, L500.4100, L100.0100, L503.6550, L502.0250, L503.6150 #### [facility] [address] [place], [place], [address] [phone] Protein Electroph, Son 03-13 Albumin [Mass/Vol] 4.4 g/dL Normal 2.9-4.4 [facility] Comment on above: Order Comment: Order Date: 01/18/24 Order Info: [id number] - CMP Order Info: - LIPID Order Info: [id number] TIBC Order Info: [id number] Order Info: [id number] - DARRYL Performed By: #### L 503.6075, L501.9985, L506.1000, L503.0105, L500.4050, L500.4100, L100.0100, L503.6550, L502.0250, L503.6150 #### [facility] [address] [place], [address] Albumin/Globulin [Mass ratio] 1.4 {ratio} Normal 0.7-1.7 [facility] Comment on above: Order Comment: Order Date: 01/18/24 Order Info: 785-05 - CMP Order Info: - LIPID Order Info: 2499-11 TIBC Order Info: 2497-08 Order Info: 2275-08 - DARRYL Performed By: #### L 503.6075, L501.9985, L506.1000, L503.0105, L500.4050, L500.4100, L100.0100, L503.6550, L502.0250, L503.6150 #### [facility] [address] [place], [address] ALPHA-1 GLOBUL 0.2 g/dL Normal 0.0-0.4 [facility] Comment on above: Order Comment: Order Date: 01/18/24 Order Info: 785-05 - CMP Order Info: - LIPID Order Info: 2499-11 TIBC Order Info: 2497-08 FE Order Info: 2275-08 - DARRYL Performed By: #### L 503.6075, L501.9985, L506.1000, L503.0105, L500.4050, L500.4100, L100.0100, L503.6550, L502.0250, L503.6150 #### [facility] [address] [place], [place], [phone] (744) ALPHA-2 GLOBUL 0.8 g/dL Normal 0.4-1.0 [facility] Comment on above: Order Comment: Order Date: 01/18/24 Order Info: 785-05 - CMP Order Info: - LIPID Order Info: 2499-11 TIBC Order Info: 2497-08 Order Info: 2275-08 - DARRYL Performed By: #### L 503.6075, L501.9985, L506.1000, L503.0105, L500.4050, L500.4100, L100.0100, L503.6550, L502.0250, L503.6150 #### [facility] [address] [place], [place], [phone] (916) BETA GLOBULIN 0.9 g/dL Normal 0.7-1.3 [facility] Comment on above: Order Comment: Order Date: 01/18/24 Order Info: 785-05 - CMP Order Info: - LIPID Order Info: 2499-11 TIBC Order Info: 2497-08 Order Info: 2275-08 - DARRLY Performed By: #### L 503.6075, L501.9985, L506.1000, L503.0105, L500.4050, L500.4100, L100.0100, L503.6550, L502.0250, L503.6150 #### [facility] [address] [place], [place], [phone] (419) GAMMA GLOBULIN 1.1 g/dL Normal 0.4-1.8 [facility] Comment on above: Order Comment: Order Date: 01/18/24 Order Info: 785-05 - CMP Order Info: - LIPID Order Info: 2499-11 TIBC Order Info: 2497-08 Order Info: 2275-08 - DARRYL Performed By: #### L 503.6075, L501.9985, L506.1000, L503.0105, L500.4050, L500.4100, L100.0100, L503.6550, L502.0250, L503.6150 #### [facility] [address] [place], [place], [id number] Globulin (S) [Mass/Vol] 3.1 g/dL Normal 2.2-3.9 [facility] Comment on above: Order Comment: Order Date: 01/18/24 Order Info: 785-05 - CMP Order Info: - LIPID Order Info: 2499-11 - TIBC Order Info: 2497-08 Order Info: 2275-08 - DARRYL Performed By: #### L 503.6075, L501.9985, L506.1000, L503.0105, L500.4050, L500.4100, L100.0100, L503.6550, L502.0250, L503.6150 #### [facility] [address] [place], [place], [id number] INTERPRETATION Comment Normal . [facility] Comment on above: Order Comment: Order Date: 01/18/24 Order Info: 785-05 - CMP Order Info: - LIPID Order Info: 2499-11 - TIBC Order Info: 2497-08 FE Order Info: 2275-08 - DARRYL Result Comment: Prot ein electrophoresis scan will follow via computer, mail, or options advisor delivery. Performed By: #### L 503.6075, L501.9985, L506.1000, L503.0105, L500.4050, L500.4100, L100.0100, L503.6550, L502.0250, L503.6150 #### [facility] [address] [place], [place], [id number] M-SPIKE 0.4 g/dL Abnormal Not Observed [facility] Comment on above: Order Comment: Order Date: 01/18/24 Order Info: 785-05 - CMP Order Info: - LIPID Order Info: 2499-11 TIBC Order Info: 2497-08 Order Info: 2275-08 - DARRYL Performed By: #### L 503.6075, L501.9985, L506.1000, L503.0105, L500.4050, L500.4100, L100.0100, L503.6550, L502.0250, L503.6150 #### [facility] [address] [place], [place], [id number] NOTE: Comment Normal . [facility] Comment on above: Order Comment: Order Date: 01/18/24 Order Info: 07 - CMP Order Info: - LIPID Order Info: 2499-11 TIBC Order Info: 2497-08 Order Info: 2275-08 - DARRYL Result Comment: The SPE pattern demonstrates a single peak (M-spike) in the gamma region which may represent monoclonal protein. This peak may also be caused by circulating immune complexes, cryoglobulins, C-reactive protein, fibrinogen or hemolysis. If clinically indicated, the presence of a monoclonal gammopathy may be confirmed by immuno-fixation, as well as an evaluation of the urine for the presence of Bence-Lewis protein. Performed By: #### L 503.6075, L501.9985, L506.1000, L503.0105, L500.4050, L500.4100, L100.0100, L503.6550, L502.0250, L503.6150 #### [facility] [address] [place], [place], [id number] Protein [Mass/Vol] 7.5 g/dL Normal 6.0-8.5 [facility] Comment on above: Order Comment: Order Date: 01/18/24 Order Info: 0786- - CMP Order Info: 29147-4 - LIPID Order Info: 2499-11 TIBC Order Info: 2497-08 Order Info: 2275-08 DARRYL Performed By: #### L 503.6075, L501.9985, L506.1000, L503.0105, L500.4050, L500.4100, L100.0100, L503.6550, L502.0250, L503.6150 #### [facility] [address] [place], [place], [id number] Ferritinon 03-12-2024 Ferritin [Mass/Vol] 28 ng/mL Normal 8-252 [facility] Comment on above: Performed By: #### L 503.6075, L501.9985, L506.1000, L503.0105, L500.4050, L500.4100, L100.0100, L503.6550, L502.0250, L503.6150 #### [facility] [address] [place], [place], [phone] Ironon 03-12-2024 Iron [Mass/Vol] 52 ug/dL Normal 50-170 [facility] Comment on above: Performed By: #### L 503.6075, L501.9985, L506.1000, L503.0105, L500.4050, L500.4100, L100.0100, L503.6550, L502.0250, L503.6150 #### [facility] [address] [place], [place], [id number] CBC W/Diff, Automatedon - Absolute Lymph 1.94 X10 3/uL Normal 0.83-4.51 [facility] Comment on above: Order Comment: Order Date: 01/18/24 Order Info: 0786-1 - CMP Order Info: 05609-3 - LIPID Order Info: 2500-7 - TIBC Order Info: 2498-4 - FE Order Info: 2276-4 - DARRYL Performed By: #### L 503.6075, L501.9985, L506.1000, L503.0105, L500.4050, L500.4100, L100.0100, L503.6550, L502.0250, L503.6150 #### [facility] [address] [place], [address] Absolute Neut 4.2 X10 3/uL Normal 2.0-7.7 [facility] Comment on above: Order Comment: Order Date: 01/18/24 Order Info: 785-05 - CMP Order Info: - LIPID Order Info: 2499-11 TIBC Order Info: 2497-08 FE Order Info: 2275-08 - DARRYL Performed By: #### L 503.6075, L501.9985, L506.1000, L503.0105, L500.4050, L500.4100, L100.0100, L503.6550, L502.0250, L503.6150 #### [facility] [address] [place], [place], [phone] (451) Basophils/100 WBC (Bld) 1.0 % Normal 0-1 [facility] Comment on above: Order Comment: Order Date: 01/18/24 Order Info: 785-05 - CMP Order Info: - LIPID Order Info: 2499-11 TIBC Order Info: 2497-08 Order Info: 2275-08 - DARRYL Performed By: #### L 503.6075, L501.9985, L506.1000, L503.0105, L500.4050, L500.4100, L100.0100, L503.6550, L502.0250, L503.6150 #### [facility] [address] [place], [place], [phone] (611) Eosinophils/100 WBC (Bld) 1.2 % Normal 0-5 [facility] Comment on above: Order Comment: Order Date: 01/18/24 Order Info: 785-05 - CMP Order Info: - LIPID Order Info: 2499-11 TIBC Order Info: 2497-08 Order Info: 2275-08 - DARRYL Performed By: #### L 503.6075, L501.9985, L506.1000, L503.0105, L500.4050, L500.4100, L100.0100, L503.6550, L502.0250, L503.6150 #### [facility] [address] [place], [address] Erythrocyte distribution width (RBC) [Ratio] 13.8 % Normal 11.6-14.6 [facility] Comment on above: Order Comment: Order Date: 01/18/24 Order Info: 785-05 - CMP Order Info: - LIPID Order Info: 2499-11 - TIBC Order Info: 2497-08 FE Order Info: 2275-08 - DARRYL Performed By: #### L 503.6075, L501.9985, L506.1000, L503.0105, L500.4050, L500.4100, L100.0100, L503.6550, L502.0250, L503.6150 #### [facility] [address] [place], [address] Hematocrit (Bld) [Volume fraction] 40.5 % Normal 37-47 [facility] Comment on above: Order Comment: Order Date: 01/18/24 Order Info: 785-05 - CMP Order Info: - LIPID Order Info: 2499-11 - TIBC Order Info: 2497-08 FE Order Info: 2275-08 - DARRYL Performed By: #### L 503.6075, L501.9985, L506.1000, L503.0105, L500.4050, L500.4100, L100.0100, L503.6550, L502.0250, L503.6150 #### [facility] [address] [place], [address] Hemoglobin (Bld) [Mass/Vol] 12.8 g/dL Normal 12.0-15.0 [facility] Comment on above: Order Comment: Order Date: 01/18/24 Order Info: 785-05 - CMP Order Info: - LIPID Order Info: 7 - TIBC Order Info: 2497-08 - FE Order Info: 2275-08 - DARRYL Performed By: #### L 503.6075, L501.9985, L506.1000, L503.0105, L500.4050, L500.4100, L100.0100, L503.6550, L502.0250, L503.6150 #### [facility] [address] [place], [address] IG% 0.400 Normal 0.0-0.9 [facility] Comment on above: Order Comment: Order Date: 01/18/24 Order Info: 07- - CMP Order Info: - LIPID Order Info: 2499-11 - TIBC Order Info: 2497-08 FE Order Info: 2275-08 - DARRYL Result Comment: IG% - Immature Granulocytes (promyelocytes, myelocytes and metamyelocytes) > 1% indicates that a LEFT SHIFT is Present. Performed By: #### L 503.6075, L501.9985, L506.1000, L503.0105, L500.4050, L500.4100, L100.0100, L503.6550, L502.0250, L503.6150 #### [facility] [address] [place], [address] Lymphocytes/100 WBC (Bld) 28.5 % Normal 19-41 [facility] Comment on above: Order Comment: Order Date: 01/18/24 Order Info: 0786- - CMP Order Info: - LIPID Order Info: 2499-11 TIBC Order Info: 2497-08 FE Order Info: 2275-08 - DARRYL Performed By: #### L 503.6075, L501.9985, L506.1000, L503.0105, L500.4050, L500.4100, L100.0100, L503.6550, L502.0250, L503.6150 #### [facility] [address] [place], [address] MCH (RBC) [Entitic mass] 28.1 pg Normal 27.0-32.0 [facility] Comment on above: Order Comment: Order Date: 01/18/24 Order Info: 0786 - CMP Order Info: - LIPID Order Info: 2499-11 - TIBC Order Info: 2497-08 FE Order Info: 2275-08 - DARRYL Performed By: #### L 503.6075, L501.9985, L506.1000, L503.0105, L500.4050, L500.4100, L100.0100, L503.6550, L502.0250, L503.6150 #### [facility] [address] [place], [address] MCHC (RBC) [Mass/Vol] 31.6 g/dL Low 32-36 [facility] Comment on above: Order Comment: Order Date: 01/18/24 Order Info: 785-05 - CMP Order Info: - LIPID Order Info: 2499-11 - TIBC Order Info: 2497-08 FE Order Info: 2275-08 - DARRYL Performed By: #### L 503.6075, L501.9985, L506.1000, L503.0105, L500.4050, L500.4100, L100.0100, L503.6550, L502.0250, L503.6150 #### [facility] [address] [place], [address] MCV (RBC) [Entitic vol] 88.8 fL Normal 81-99 [facility] Comment on above: Order Comment: Order Date: 01/18/24 Order Info: 785-05 - CMP Order Info: - LIPID Order Info: 2499-11 - TIBC Order Info: 2497-08 - FE Order Info: 2275-08 - DARRYL Performed By: #### L 503.6075, L501.9985, L506.1000, L503.0105, L500.4050, L500.4100, L100.0100, L503.6550, L502.0250, L503.6150 #### [facility] [address] [place], [address] Monocytes/100 WBC (Bld) 7.1 % Normal 0-10 [facility] Comment on above: Order Comment: Order Date: 01/18/24 Order Info: 86- - CMP Order Info: - LIPID Order Info: 2499-11 - TIBC Order Info: 2497-08 FE Order Info: 2275-08 - DARRYL Performed By: #### L 503.6075, L501.9985, L506.1000, L503.0105, L500.4050, L500.4100, L100.0100, L503.6550, L502.0250, L503.6150 #### [facility] [address] [facility] [place], [place], [id number] Neutrophils/100 WBC (Bld) 61.8 % Normal 47-70 [facility] Comment on above: Order Comment: Order Date: 01/18/24 Order Info: 785-05 - CMP Order Info: - LIPID Order Info: 2499-11 TIBC Order Info: 2497-08 Order Info: 2275-08 - DARRYL Performed By: #### L 503.6075, L501.9985, L506.1000, L503.0105, L500.4050, L500.4100, L100.0100, L503.6550, L502.0250, L503.6150 #### [facility] [address] [place], [place], [phone] Nucleated RBC (Bld) [#/Vol] 0 10*3/uL Normal 0-5 [facility] Comment on above: Order Comment: Order Date: 01/18/24 Order Info: 785-05 - CMP Order Info: - LIPID Order Info: 2499-11 - TIBC Order Info: 2497-08 FE Order Info: 2275-08 - DARRYL Performed By: #### L 503.6075, L501.9985, L506.1000, L503.0105, L500.4050, L500.4100, L100.0100, L503.6550, L502.0250, L503.6150 #### [facility] [address] [place], [address] Platelet mean volume (Bld) [Entitic vol] 10.3 fL Normal 6.2-12.0 [facility] Comment on above: Order Comment: Order Date: 01/18/24 Order Info: 0786 - CMP Order Info: - LIPID Order Info: 2499-11 - TIBC Order Info: 2497-08 FE Order Info: 2275-08 - DARRYL Performed By: #### L 503.6075, L501.9985, L506.1000, L503.0105, L500.4050, L500.4100, L100.0100, L503.6550, L502.0250, L503.6150 #### [facility] [address] [place], [address] Platelets (Bld) [#/Vol] 295 10*3/uL Normal 150-450 [facility] Comment on above: Order Comment: Order Date: 01/18/24 Order Info: 785-05 - CMP Order Info: - LIPID Order Info: 2499-11 - TIBC Order Info: 2497-08 Order Info: 2275-08 - DARRYL Performed By: #### L 503.6075, L501.9985, L506.1000, L503.0105, L500.4050, L500.4100, L100.0100, L503.6550, L502.0250, L503.6150 #### [facility] [address] [place], [address] RBC (Bld) [#/Vol] 4.56 10*6/uL Normal 4.2-5.4 [facility] Comment on above: Order Comment: Order Date: 01/18/24 Order Info: 07 - CMP Order Info: 19153-0 - LIPID Order Info: 2499-11 - TIBC Order Info: 2497-08 FE Order Info: 2275-08 - DARRYL Performed By: #### L 503.6075, L501.9985, L506.1000, L503.0105, L500.4050, L500.4100, L100.0100, L503.6550, L502.0250, L503.6150 #### [facility] [address] [place], [place], [address] RDW SD 44.7 fl High 35.1-43.9 [facility] Comment on above: Order Comment: Order Date: 01/18/24 Order Info: 07- - CMP Order Info: - LIPID Order Info: 2499-11 - TIBC Order Info: 2497-08 - FE Order Info: 2275-08 - DARRYL Performed By: #### L 503.6075, L501.9985, L506.1000, L503.0105, L500.4050, L500.4100, L100.0100, L503.6550, L502.0250, L503.6150 #### [facility] [address] [place], [place], [id number] WBC (Bld) [#/Vol] 6.8 10*3/uL Normal 4.4-11.0 [facility] Comment on above: Order Comment: Order Date: 01/18/24 Order Info: 785-05 - CMP Order Info: - LIPID Order Info: 2499-11 - TIBC Order Info: 2497-08 - FE Order Info: 2275-08 - DARRYL Performed By: #### L 503.6075, L501.9985, L506.1000, L503.0105, L500.4050, L500.4100, L100.0100, L503.6550, L502.0250, L503.6150 #### [facility] [address] [place], [place], [id number] Comprehensive Metabolic Prof wion 12-13-2023 Albumin [Mass/Vol] 3.9 g/dL Normal 3.2-5.0 [facility] Comment on above: Order Comment: Order Date: 01/18/24 Order Info: 785-05 - CMP Order Info: - LIPID Order Info: 2499-11 TIBC Order Info: 2497-08 FE Order Info: 2275-08 - DARRYL Performed By: #### L 503.6075, L501.9985, L506.1000, L503.0105, L500.4050, L500.4100, L100.0100, L503.6550, L502.0250, L503.6150 #### [facility] [address] [place], [place], [address] Albumin/Globulin [Mass ratio] 1.0 {ratio} Normal 0.9-2.4 [facility] Comment on above: Order Comment: Order Date: 01/18/24 Order Info: 07 - CMP Order Info: - LIPID Order Info: 2499-11 TIBC Order Info: 2497-08 FE Order Info: 2275-08 - DARRYL Performed By: #### L 503.6075, L501.9985, L506.1000, L503.0105, L500.4050, L500.4100, L100.0100, L503.6550, L502.0250, L503.6150 #### [facility] [address] [place], [place], [id number] ALK P 35 U/L Low 45-117 [facility] Comment on above: Order Comment: Order Date: 01/18/24 Order Info: 0786- - CMP Order Info: - LIPID Order Info: 2499-11 TIBC Order Info: 2497-08 - FE Order Info: 2275-08 - DARRYL Performed By: #### L 503.6075, L501.9985, L506.1000, L503.0105, L500.4050, L500.4100, L100.0100, L503.6550, L502.0250, L503.6150 #### [facility] [address] [place], [address] ALT [Catalytic activity/Vol] 17 U/L Normal 13-56 [facility] Comment on above: Order Comment: Order Date: 01/18/24 Order Info: 785-05 - CMP Order Info: - LIPID Order Info: 2499-11 TIBC Order Info: 2497-08 FE Order Info: 2275-08 - DARRYL Performed By: #### L 503.6075, L501.9985, L506.1000, L503.0105, L500.4050, L500.4100, L100.0100, L503.6550, L502.0250, L503.6150 #### [facility] [address] [place], [place], [address] AST [Catalytic activity/Vol] 19 U/L Normal 15-37 [facility] Comment on above: Order Comment: Order Date: 01/18/24 Order Info: 785-05 - CMP Order Info: - LIPID Order Info: 2499-11 TIBC Order Info: 2497-08 Order Info: 2275-08 - DARRYL Performed By: #### L 503.6075, L501.9985, L506.1000, L503.0105, L500.4050, L500.4100, L100.0100, L503.6550, L502.0250, L503.6150 #### [facility] [address] [place], [place], [id number] Bilirubin [Mass/Vol] 0.40 mg/dL Normal 0.20-1.00 [facility] Comment on above: Order Comment: Order Date: 01/18/24 Order Info: 785-05 - CMP Order Info: - LIPID Order Info: 2499-11 TIBC Order Info: 2497-08 FE Order Info: 2275-08 - DARRYL Result Comment: For patients on eltrombopag therapy, use of Dimension [place] TBIL is not recommended. Performed By: #### L 503.6075, L501.9985, L506.1000, L503.0105, L500.4050, L500.4100, L100.0100, L503.6550, L502.0250, L503.6150 #### [facility] [address] [place], [place], [id number] BUN/CRE 14.1 RATIO Normal 10-20 [facility] Comment on above: Order Comment: Order Date: 01/18/24 Order Info: 785-05 - CMP Order Info: - LIPID Order Info: 2499-11 - TIBC Order Info: 2497-08 - FE Order Info: 2275-08 - DARRYL Performed By: #### L 503.6075, L501.9985, L506.1000, L503.0105, L500.4050, L500.4100, L100.0100, L503.6550, L502.0250, L503.6150 #### [facility] [address] [place], [place], [phone] (699) CA,Total 9.6 mg/dL Normal 8.5-10.1 [facility] Comment on above: Order Comment: Order Date: 01/18/24 Order Info: 785-05 - CMP Order Info: - LIPID Order Info: 2499-11 - TIBC Order Info: 2497-08 - FE Order Info: 2275-08 - DARRYL Performed By: #### L 503.6075, L501.9985, L506.1000, L503.0105, L500.4050, L500.4100, L100.0100, L503.6550, L502.0250, L503.6150 #### [facility] [address] [place], [place], [phone] (532) Chloride [Moles/Vol] 103 mmol/L Normal 98-107 [facility] Comment on above: Order Comment: Order Date: 01/18/24 Order Info: 785-05 - CMP Order Info: - LIPID Order Info: 2499-11 - TIBC Order Info: 2497-08 - FE Order Info: 2275-08 - DARRYL Performed By: #### L 503.6075, L501.9985, L506.1000, L503.0105, L500.4050, L500.4100, L100.0100, L503.6550, L502.0250, L503.6150 #### [facility] [address] [place], [place], [address] CO2 [Moles/Vol] 28.0 mmol/L Normal 21.0-32.0 [facility] Comment on above: Order Comment: Order Date: 01/18/24 Order Info: 785-05 - CMP Order Info: - LIPID Order Info: 2499-11 - TIBC Order Info: 2497-08 Order Info: 2275-08 - DARRYL Performed By: #### L 503.6075, L501.9985, L506.1000, L503.0105, L500.4050, L500.4100, L100.0100, L503.6550, L502.0250, L503.6150 #### [facility] [address] [place], [place], [id number] Creatinine [Mass/Vol] 0.85 mg/dL Normal 0.55-1.02 [facility] Comment on above: Order Comment: Order Date: 01/18/24 Order Info: 785-05 - CMP Order Info: - LIPID Order Info: 2499-11 TIBC Order Info: 2497-08 Order Info: 2275-08 - DARRYL Result Comment: The validity of the calculated GFR GFRAA in patients over 70 years has not been determined. Clinical correlation is essential. Performed By: #### L 503.6075, L501.9985, L506.1000, L503.0105, L500.4050, L500.4100, L100.0100, L503.6550, L502.0250, L503.6150 #### [facility] [address] [place], [address] EST GFR - AA 86 mL/min Normal >60 [facility] Comment on above: Order Comment: Order Date: 01/18/24 Order Info: 07 - CMP Order Info: - LIPID Order Info: 2499-11 TIBC Order Info: 2497-08 Order Info: 2275-08 - DARRYL Result Comment: Afri can [place] GFR Calc Performed By: #### L 503.6075, L501.9985, L506.1000, L503.0105, L500.4050, L500.4100, L100.0100, L503.6550, L502.0250, L503.6150 #### [facility] [address] [place], [place], [phone] (568) GAP 8 Normal 5-15 [facility] Comment on above: Order Comment: Order Date: 01/18/24 Order Info: 785-05 - CMP Order Info: - LIPID Order Info: 2499-11 TIBC Order Info: 2497-08 Order Info: 2275-08 - DARRYL Performed By: #### L 503.6075, L501.9985, L506.1000, L503.0105, L500.4050, L500.4100, L100.0100, L503.6550, L502.0250, L503.6150 #### [facility] [address] [place], [address] GFR/1.73 sq M.predicted among non-blacks MDRD (S/P/Bld) [Vol rate/Area] 71 mL/min/{1.73_m2} Normal >60 [facility] Comment on above: Order Comment: Order Date: 01/18/24 Order Info: 785-05 - CMP Order Info: - LIPID Order Info: 2499-11 TIBC Order Info: 2497-08 Order Info: 2275-08 - DARRYL Result Comment: Non- GFR Calc Performed By: #### L 503.6075, L501.9985, L506.1000, L503.0105, L500.4050, L500.4100, L100.0100, L503.6550, L502.0250, L503.6150 #### [facility] [address] [place], [address] Globulin (S) [Mass/Vol] 4.0 g/dL Normal 2.2-4.2 [facility] Comment on above: Order Comment: Order Date: 01/18/24 Order Info: 785- - CMP Order Info: - LIPID Order Info: 2499-11 - TIBC Order Info: 2497-08 FE Order Info: 2275-08 - DARRYL Performed By: #### L 503.6075, L501.9985, L506.1000, L503.0105, L500.4050, L500.4100, L100.0100, L503.6550, L502.0250, L503.6150 #### [facility] [address] [place], [address] Glucose [Mass/Vol] 90 mg/dL Normal 74-106 [facility] Comment on above: Order Comment: Order Date: 01/18/24 Order Info: 785-05 - CMP Order Info: - LIPID Order Info: 2499-11 TIBC Order Info: 2497-08 - FE Order Info: 2275-08 - DARRYL Performed By: #### L 503.6075, L501.9985, L506.1000, L503.0105, L500.4050, L500.4100, L100.0100, L503.6550, L502.0250, L503.6150 #### [facility] [address] [place], [place], [id number] Potassium [Moles/Vol] 4.0 mmol/L Normal 3.5-5.1 [facility] Comment on above: Order Comment: Order Date: 01/18/24 Order Info: 785-05 - CMP Order Info: - LIPID Order Info: 2499-11 - TIBC Order Info: 2497-08 - FE Order Info: 2275-08 - DARRYL Performed By: #### L 503.6075, L501.9985, L506.1000, L503.0105, L500.4050, L500.4100, L100.0100, L503.6550, L502.0250, L503.6150 #### [facility] [address] [place], [place], [id number] Sodium [Moles/Vol] 139 mmol/L Normal 136-145 [facility] Comment on above: Order Comment: Order Date: 01/18/24 Order Info: 785-05 - CMP Order Info: - LIPID Order Info: 2499-11 - TIBC Order Info: 2497-08 FE Order Info: 2275-08 - DARRYL Performed By: #### L 503.6075, L501.9985, L506.1000, L503.0105, L500.4050, L500.4100, L100.0100, L503.6550, L502.0250, L503.6150 #### [facility] [address] [place], [place], [id number] T PROT 7.9 g/dL Normal 6.4-8.2 [facility] Comment on above: Order Comment: Order Date: 01/18/24 Order Info: 785-05 - CMP Order Info: - LIPID Order Info: 2499-11 TIBC Order Info: 2497-08 FE Order Info: 2275-08 - DARRYL Performed By: #### L 503.6075, L501.9985, L506.1000, L503.0105, L500.4050, L500.4100, L100.0100, L503.6550, L502.0250, L503.6150 #### [facility] [address] [place], [place], [id number] Urea nitrogen [Mass/Vol] 12 mg/dL Normal 7-18 [facility] Comment on above: Order Comment: Order Date: 01/18/24 Order Info: 86 - CMP Order Info: - LIPID Order Info: [id number] - TIBC Order Info: 2497-08 FE Order Info: [id number] - DARRYL Performed By: #### L 503.6075, L501.9985, L506.1000, L503.0105, L500.4050, L500.4100, L100.0100, L503.6550, L502.0250, L503.6150 #### [facility] [address] [place], [place], [phone] ([phone]) Ferritinon 12-13-2023 Ferritin [Mass/Vol] 20 ng/mL Normal 8-252 [facility] Comment on above: Order Comment: Order Date: 01/18/24 Order Info: 0786- - CMP Order Info: [id number] - LIPID Order Info: [id number] - TIBC Order Info: 2497-08 - FE Order Info: [id number] - DARRYL Performed By: #### L 503.6075, L501.9985, L506.1000, L503.0105, L500.4050, L500.4100, L100.0100, L503.6550, L502.0250, L503.6150 #### [facility] [address] [place], [place], [phone] Folates, (Folic Acid)on 11-20 FOLATES 40.20 ng/mL Normal 3.1-55.4 [facility] Comment on above: Order Comment: Order Date: 01/18/24 Order Info: 0786- - CMP Order Info: [id number] - LIPID Order Info: [id number] - TIBC Order Info: [id number] - FE Order Info: [id number] - DARRYL Performed By: #### L 503.6075, L501.9985, L506.1000, L503.0105, L500.4050, L500.4100, L100.0100, L503.6550, L502.0250, L503.6150 #### [facility] [address] [place], [place], [phone] ([phone]) Hemoglobin A1con 12-13-2023 HbA1c (Bld) [Mass fraction] 5.3 % Normal 3.8-5.6 [facility] Comment on above: Order Comment: Order Date: 01/18/24 Order Info: 785- - CMP Order Info: - LIPID Order Info: [id number] - TIBC Order Info: [id number] - FE Order Info: [id number] - DARRYL Result Comment: Norm al < 5.7 % Prediabetic 5.7 - 6.4 % Diabetic >or= 6.5 % Please note range changes. Performed By: #### L 503.6075, L501.9985, L506.1000, L503.0105, L500.4050, L500.4100, L100.0100, L503.6550, L502.0250, L503.6150 #### [facility] [address] [place], [address] Ironon 12-13-2023 Iron [Mass/Vol] 44 ug/dL Low 50-170 [facility] Comment on above: Order Comment: Order Date: 01/18/24 Order Info: [id number] - CMP Order Info: - LIPID Order Info: [id number] - TIBC Order Info: 2497-08 - FE Order Info: [id number] - DARRYL Performed By: #### L 503.6075, L501.9985, L506.1000, L503.0105, L500.4050, L500.4100, L100.0100, L503.6550, L502.0250, L503.6150 #### [facility] [address] [place], [place], [id number] Iron Binding Capacity,Totalo n 12-13-2023 TIBC 356 ug/dL Normal 250-450 [facility] Comment on above: Order Comment: Order Date: 01/18/24 Order Info: [id number] - CMP Order Info: - LIPID Order Info: 7 - TIBC Order Info: [id number] - FE Order Info: [id number] - DARRYL Performed By: #### L 503.6075, L501.9985, L506.1000, L503.0105, L500.4050, L500.4100, L100.0100, L503.6550, L502.0250, L503.6150 #### [facility] [address] [place], [address] Lipid Profileon 12-13-2023 Cholesterol [Mass/Vol] 133 mg/dL Normal 200 [facility] Comment on above: Order Comment: Order Date: 01/18/24 Order Info: 0786- - CMP Order Info: [id number] - LIPID Order Info: [id number] TIBC Order Info: 2497-08 Order Info: [id number] - DARRYL Result Comment: <200 mg/dL Desirable 200-240 mg/dL Borderline >240 mg/dL High Risk Performed By: #### L 503.6075, L501.9985, L506.1000, L503.0105, L500.4050, L500.4100, L100.0100, L503.6550, L502.0250, L503.6150 #### [facility] [address] [place], [address] Cholesterol in HDL [Mass/Vol] 62 mg/dL Normal [facility] Comment on above: Order Comment: Order Date: 01/18/24 Order Info: 0786 - CMP Order Info: - LIPID Order Info: [id number] Order Info: 2497-08 Order Info: [id number] - DARRYL Result Comment: The drugs N-Acetylcysteine and Metamizole may falsely depress this assay. Reference Range HDL <40 mg/dL Low HDL Cholesterol HDL >or= 60 mg/dL High HDL Cholesterol Performed By: #### L 503.6075, L501.9985, L506.1000, L503.0105, L500.4050, L500.4100, L100.0100, L503.6550, L502.0250, L503.6150 #### [facility] [address] [place], [address] Cholesterol in LDL [Mass/Vol] 57 mg/dL Normal 0-130 [facility] Comment on above: Order Comment: Order Date: 01/18/24 Order Info: 785-05 - CMP Order Info: - LIPID Order Info: [id number] TIBC Order Info: 2497-08 Order Info: [id number] - DARRYL Performed By: #### L 503.6075, L501.9985, L506.1000, L503.0105, L500.4050, L500.4100, L100.0100, L503.6550, L502.0250, L503.6150 #### [facility] [address] [facility] [place], [address] Cholesterol in VLDL [Mass/Vol] 14 mg/dL Normal 5-40 [facility] Comment on above: Order Comment: Order Date: 01/18/24 Order Info: 785-05 - CMP Order Info: - LIPID Order Info: [id number] TIBC Order Info: 2497-08 Order Info: [id number] - DARRYL Performed By: #### L 503.6075, L501.9985, L506.1000, L503.0105, L500.4050, L500.4100, L100.0100, L503.6550, L502.0250, L503.6150 #### [facility] [address] [facility] [place], [place], [id number] Triglyceride [Mass/Vol] 70 mg/dL Normal [facility] Comment on above: Order Comment: Order Date: 01/18/24 Order Info: [id number] - CMP Order Info: - LIPID Order Info: [id number] TIBC Order Info: 2497-08 Order Info: [id number] - DARRYL Result Comment: The drugs N-Acetylcysteine and Metamizole may falsely depress this assay. Serum Triglycerides Reference Interval Normal <150 mg/dL Borderline high 150 - 199 mg/dL High 200 - 499 mg/dL Very High > or = 500 mg/dL Performed By: #### L 503.6075, L501.9985, L506.1000, L503.0105, L500.4050, L500.4100, L100.0100, L503.6550, L502.0250, L503.6150 #### [facility] [address] [place], [address] Vitamin B12on 12-13-2023 Cobalamin (Vitamin B12) [Mass/Vol] 216 pg/mL Normal 211-911 [facility] Comment on above: Order Comment: Order Date: 01/18/24 Order Info: 07 - CMP Order Info: - LIPID Order Info: [id number] - TIBC Order Info: 2497-08 FE Order Info: 2275-08 - DARRYL Performed By: #### L 503.6075, L501.9985, L506.1000, L503.0105, L500.4050, L500.4100, L100.0100, L503.6550, L502.0250, L503.6150 #### [facility] [address] [place], [address] Vitamin D,25 Hydroxyon 12-12 Vitamin D 25-OH 71.0 ng/mL Normal [facility] Comment on above: Order Comment: Order Date: 01/18/24 Order Info: [id number] - CMP Order Info: - LIPID Order Info: [id number] - TIBC Order Info: 2497-08 Order Info: [id number] - DARRYL Result Comment: Salma min D 25(OH) Status Range Deficiency <20 ng/mL (50nmol/L) Insufficiency 20 - 30 ng/mL (50 - 75 nmol/L) Sufficiency 30 - 100 ng/mL (75 - 250 nmol/L) Toxicity >100 ng/mL (>250 nmol/L) Performed By: #### L 503.6075, L501.9985, L506.1000, L503.0105, L500.4050, L500.4100, L100.0100, L503.6550, L502.0250, L503.6150 #### [facility] [address] [place], [address] Absolute lymphocyte countOrd ered By: Scott Steele on 08-23-2023 Lymphocytes Auto (Unsp spec) [#/Vol] 2.13 10*3/uL 0.83-4.51 [facility] Automated lymphocyte count a s percentage of total leukocytesOrdered By: Scott Steele on 08-23-2023 Lymphocytes/100 WBC Auto (Unsp spec) 24.7 % 19-41 [facility] Basophil percentageOrdered B y: Scott Steele on 08-23-2023 Basophil percentage 0 SEEN /hpf 0-5 [facility] Basophils/100 WBC (Bld) 1.0 % 0-1 [facility] Bilirubin [Mass/Vol] 0.50 mg/dL 0.20-1.00 [facility] Comment on above: For patients on eltr ombopag therapy, use of Dimension [place] TBIL is not recommended. Chloride [Moles/Vol] 102 mmol/L 98-107 [facility] Cholesterol [Mass/Vol] 151 mg/dL <200 [facility] Comment on above: <200 mg/dL Desirable 200-240 mg/dL Borderline >240 mg/dL High Risk Eosinophils/100 WBC (Bld) 1.6 % 0-5 [facility] Glucose [Mass/Vol] 110 mg/dL 74-106 [facility] Comment on above: Fasting Glucose resu lt from 100 to 125 mg/dL suggests IMPAIRED HOMEOSTASIS per A.D.A. criteria. Hemoglobin (Bld) [Mass/Vol] 13.5 g/dL 12.0-15.0 [facility] Monocytes/100 WBC (Bld) 8.6 % 0-10 [facility] Neutrophils (Bld) [#/Vol] 5.5 10*3/uL 2.0-7.7 [facility] Neutrophils/100 WBC (Bld) 63.6 % 47-70 [facility] Potassium [Moles/Vol] 4.3 mmol/L 3.5-5.1 [facility] Protein [Mass/Vol] 8.1 g/dL 6.4-8.2 [facility] Sodium [Moles/Vol] 136 mmol/L 136-145 [facility] Triglyceride [Mass/Vol] 101 mg/dL <199 [facility] Comment on above: The drugs N-Acetylcy steine and Metamizole may falsely depress this assay.Serum Triglycerides Reference Interval Normal <150 mg/dL Borderline high 150 - 199 mg/dL High 200 - 499 mg/dL Very High > or = 500 mg/dL WBC (Bld) [#/Vol] 8.6 10*3/uL 4.4-11.0 [facility] Bilirubin Test strip Ql (U)O rdered By: Scott Steele on 08-23-2023 Bilirubin Ql (U) Negative Negative [facility] Determination of erythrocyte mean corpuscular volume (MCV)Ordered By: Scott Steele on 08-23-2023 MCV (RBC) [Entitic vol] 89.0 fL 81-99 [facility] Erythrocyte distribution wid th ratioOrdered By: Scott Steele on 08-23-2023 Erythrocyte distribution width (RBC) [Ratio] 14.2 % 11.6-14.6 [facility] Erythrocyte distribution wid th standard deviationOrdered By: Scott Steele on 08-23-2023 Erythrocyte distribution width (RBC) [Entitic vol] 45.9 fL 35.1-43.9 [facility] Hematocrit Auto (Bld) [Volum e fraction]Ordered By: Scott Steele on 08-23-2023 Hematocrit (Bld) [Volume fraction] 41.9 % 37-47 [facility] Immature granulocytes/100 WB C Auto (Bld)Ordered By: Scott Steele on 08-23-2023 Immature granulocytes/100 WBC (Bld) 0.500 % 0.0-0.9 [facility] Comment on above: IG% - Immature Granu locytes (promyelocytes, myelocytes and metamyelocytes) > 1% indicates that a LEFT SHIFT is Present. Iron measurement (mass/mass) Ordered By: Scott Steele on 08-23-2023 Iron (Unsp spec) [Mass/Mass] 62 ug/dL 50-170 [facility] Ketones Test strip Ql (U)Ord ered By: Scott Steele on 08-23-2023 Ketones Ql (U) Negative Negative [facility] - Chemistry and C hemistry - challengeOrdered By: Scott Steele on 08-23-2023 Albumin/Globulin [Mass ratio] 1.0 {ratio} 0.9-2.4 [facility] ALP [Catalytic activity/Vol] 36 U/L 45-117 [facility] ALT [Catalytic activity/Vol] 22 U/L 13-56 [facility] Cholesterol in HDL [Mass/Vol] 66 mg/dL >40 [facility] Comment on above: The drugs N-Acetylcy steine and Metamizole may falsely depress this assay. Reference Range HDL <40 mg/dL Low HDL Cholesterol HDL >or= 60 mg/dL High HDL Cholesterol Cholesterol in LDL [Mass/Vol] 65 mg/dL 0-130 [facility] CO2 [Moles/Vol] 28.0 mmol/L 21.0-32.0 [facility] Cobalamin (Vitamin B12) [Mass/Vol] 288 pg/mL 211-911 [facility] Ferritin [Mass/Vol] 23 ng/mL 8-252 [facility] Globulin (S) [Mass/Vol] 4.0 g/dL 2.2-4.2 [facility] Urea nitrogen/Creatinine [Mass ratio] 21.5 mg/mg 10-20 [facility] - Hematology and Cell countsOrdered By: Scott Steele on 08-23-2023 MCH (RBC) [Entitic mass] 28.7 pg 27.0-32.0 [facility] MCHC (RBC) [Mass/Vol] 32.2 g/dL 32-36 [facility] Nucleated RBC/100 WBC (Bld) [Ratio] 0 % 0-5 [facility] Platelet mean volume (Bld) [Entitic vol] 12.2 fL 6.2-12.0 [facility] Platelets (Bld) [#/Vol] 231 10*3/uL 150-450 [facility] Mucus LM Ql (Urine sed)Order ed By: Scott Steele on 08-23-2023 Mucus Ql (Urine sed) 0 SEEN /hpf [facility] Nitrite Test strip Ql (U)Ord ered By: Scott Steele on 08-23-2023 Nitrite Ql (U) Negative Negative [facility] No Panel InformationOrdered By: Scott Steele on 08-23-2023 Estimated GFR (MDRD) Amer 78 mL/min >60 [facility] Comment on above: GFR Calc Estimated GFR (MDRD) Non-Af Amer 64 mL/min >60 [facility] Comment on above: Non- GFR Calc Total Iron Binding Capacity 373 ug/dL 250-450 [facility] Urine RBC 0 SEEN /hpf 0-5 [facility] Vitamin D 25-Hydroxy 70.6 ng/mL [facility] Comment on above: Vitamin D 25(OH) Sta tus Range Deficiency <20 ng/mL (50nmol/L) Insufficiency 20 - 30 ng/mL (50 - 75 nmol/L) Sufficiency 30 - 100 ng/mL (75 - 250 nmol/L) Toxicity >100 ng/mL (>250 nmol/L) VLDL Cholesterol 20 mg/dL 5-40 [facility] Protein Test strip Ql (U)Ord ered By: Scott Steele on 08-23-2023 Protein Ql (U) Negative Negative [facility] RBC Auto (Bld) [#/Vol]Ordere d By: Scott Steele on 08-23-2023 RBC (Bld) [#/Vol] 4.71 10*6/uL 4.2-5.4 [facility] Serum or plasma calcium charlotte urement (mass/volume)Ordered By: Scott Steele on 08-23-2023 Calcium [Mass/Vol] 10.0 mg/dL 8.5-10.1 [facility] Serum or plasma creatinine m easurement (mass/volume)Ordered By: Scott Steele on 08-23-2023 Creatinine [Mass/Vol] 0.93 mg/dL 0.55-1.02 [facility] Comment on above: The validity of the calculated GFR & GFRAA in patients over 70 years has not been determined. Clinical correlation is essential. Serum or plasma urea nitroge n measurement (mass/volume)Ordered By: Scott Steele on 08-23-2023 Urea nitrogen [Mass/Vol] 20 mg/dL 7-18 [facility] Squamous epithelial cells de tection in urine sediment by light microscopyOrdered By: Scott Steele on 08-23-2023 Epithelial cells.squamous LM Ql (Urine sed) 0-5 SEEN /hpf 5-10 [facility] Thin prep Papanicolaou smear with manual screeningOrdered By: Scott Steele on 08-23-2023 Thin prep Papanicolaou smear with manual screening < 6.0 mg/dL 0.0-11.8 [facility] Thin prep Papanicolaou smear with manual screening 4.1 g/dL 3.2-5.0 [facility] Thin prep Papanicolaou smear with manual screening 21 U/L 15-37 [facility] Thin prep Papanicolaou smear with manual screening 6 5-15 [facility] Urine blood detectionOrdered By: Scott Steele on 08-23-2023 RBC Ql (U) Negative Negative [facility] Urine clarityOrdered By: Syed Steele on 08-23-2023 Clarity (U) Clear Clear [facility] Urine color determinationOrd ered By: Scott Steele on 08-23-2023 Color (U) Straw Yellow [facility] Urine creatinine measurement (mass/volume)Ordered By: Scott Steele on 08-23-2023 Creatinine (U) [Mass/Vol] mg/dL NO RANGE EST. [facility] Urine glucose detectionOrder ed By: Scott Steele on 08-23-2023 Glucose Ql (U) 1000 mg/dl Normal [facility] Urine leukocyte esterase det ection by dipstickOrdered By: Scott Steele on 08-23-2023 Leukocyte esterase Test strip Ql (U) Negative Negative [facility] Urine pHOrdered By: Scott carter on 08-23-2023 pH (U) 7.0 [pH] 5.0 - 8.0 [facility] Urine protein/creatinine mas s ratioOrdered By: cSott Steele on 08-23-2023 Protein/Creatinine (U) [Mass ratio] TNP [facility] Comment on above: Test not performed Urine sediment bacteria coun t by microscopy (number/high power field)Ordered By: Scott Steele on 08-23-2023 Bacteria LM.HPF (Urine sed) [#/Area] 0 /[HPF] None Seen [facility] Urine specific gravity measu rementOrdered By: Scott Steele on 08-23-2023 Specific gravity (U) [Rel density] 1.005 1.002-1.030 [facility] Urine urobilinogen measureme ntOrdered By: Scott Steele on 08-23-2023 Urobilinogen Ql (U) Normal mg/dl Normal [facility] Whole blood hemoglobin A1c/t otal hemoglobin ratio (mass fraction)Ordered By: Scott Steele on 08-23-2023 HbA1c (Bld) [Mass fraction] 5.7 % 3.8-5.6 [facility] Comment on above: Normal < 5.7 % Predi abetic 5.7 - 6.4 % Diabetic >or= 6.5 % Please note range changes. Absolute lymphocyte countOrd ered By: Scott Steele on 04-21-2023 Lymphocytes Auto (Unsp spec) [#/Vol] 1.90 10*3/uL 0.83-4.51 [facility] Basophil percentageOrdered B y: Scott Steele on 04-21-2023 Basophil percentage 0 SEEN /hpf 0-5 [facility] Basophil percentage 4.0 mg/dL 2.5-4.9 [facility] Basophils/100 WBC (Bld) 0.8 % 0-1 [facility] Bilirubin [Mass/Vol] 0.40 mg/dL 0.20-1.00 [facility] Comment on above: For patients on eltr ombopag therapy, use of Dimension [place] TBIL is not recommended. Chloride [Moles/Vol] 102 mmol/L 98-107 [facility] Cholesterol [Mass/Vol] 134 mg/dL <200 [facility] Comment on above: <200 mg/dL Desirable 200-240 mg/dL Borderline >240 mg/dL High Risk Eosinophils/100 WBC (Bld) 1.2 % 0-5 [facility] Glucose [Mass/Vol] 109 mg/dL 74-106 [facility] Comment on above: Fasting Glucose resu lt from 100 to 125 mg/dL suggests IMPAIRED HOMEOSTASIS per A.D.A. criteria. Neutrophils (Bld) [#/Vol] 5.9 10*3/uL 2.0-7.7 [facility] Neutrophils/100 WBC (Bld) 68.6 % 47-70 [facility] Potassium [Moles/Vol] 4.1 mmol/L 3.5-5.1 [facility] Protein [Mass/Vol] 8.0 g/dL 6.4-8.2 [facility] Sodium [Moles/Vol] 136 mmol/L 136-145 [facility] Triglyceride [Mass/Vol] 108 mg/dL <199 [facility] Comment on above: The drugs N-Acetylcy steine and Metamizole may falsely depress this assay.Serum Triglycerides Reference Interval Normal <150 mg/dL Borderline high 150 - 199 mg/dL High 200 - 499 mg/dL Very High > or = 500 mg/dL WBC (Bld) [#/Vol] 8.7 10*3/uL 4.4-11.0 [facility] Bilirubin Test strip Ql (U)O rdered By: Scott Steele on 04-21-2023 Bilirubin Ql (U) Negative Negative [facility] Blood erythrocytes count (nu mber/volume)Ordered By: Scott Steele on 04-21-2023 RBC (Bld) [#/Vol] 4.68 10*6/uL 4.2-5.4 [facility] Blood hemoglobin measurement (mass/volume)Ordered By: Scott Steele on 04-21-2023 Hemoglobin (Bld) [Mass/Vol] 13.2 g/dL 12.0-15.0 [facility] Blood lymphocytes/100 leukoc ytesOrdered By: Scott Steele on 04-21-2023 Lymphocytes/100 WBC (Bld) 22.0 % 19-41 [facility] Blood monocytes/100 leukocyt esOrdered By: Scott Steele on 04-21-2023 Monocytes/100 WBC (Bld) 7.1 % 0-10 [facility] Blood platelet mean volumeOr dered By: Scott Steele on 04-21-2023 Platelet mean volume (Bld) [Entitic vol] 10.8 fL 6.2-12.0 [facility] Determination of erythrocyte mean corpuscular volume (MCV)Ordered By: Scott Steele on 04-21-2023 MCV (RBC) [Entitic vol] 88.0 fL 81-99 [facility] Hematocrit Auto (Bld) [Volum e fraction]Ordered By: Scott Steele on 04-21-2023 Hematocrit (Bld) [Volume fraction] 41.2 % 37-47 [facility] Iron measurement (mass/mass) Ordered By: Scott Steele on 04-21-2023 Iron (Unsp spec) [Mass/Mass] 49 ug/dL 50-170 [facility] Ketones Test strip Ql (U)Ord ered By: Scott Steele on 04-21-2023 Ketones Ql (U) Negative Negative [facility] - Chemistry and C hemistry - challengeOrdered By: Scott Steele on 04-21-2023 ALP [Catalytic activity/Vol] 34 U/L 45-117 [facility] ALT [Catalytic activity/Vol] 23 U/L 13-56 [facility] CO2 [Moles/Vol] 26.0 mmol/L 21.0-32.0 [facility] Cobalamin (Vitamin B12) [Mass/Vol] 252 pg/mL 211-911 [facility] Globulin (S) [Mass/Vol] 4.1 g/dL 2.2-4.2 [facility] Urea nitrogen/Creatinine [Mass ratio] 26.4 mg/mg 10-20 [facility] - Hematology and Cell countsOrdered By: Scott Steele on 04-21-2023 Erythrocyte distribution width (RBC) [Entitic vol] 47.7 fL 35.1-43.9 [facility] Erythrocyte distribution width (RBC) [Ratio] 15.0 % 11.6-14.6 [facility] Immature granulocytes/100 WBC (Bld) 0.300 % 0.0-0.9 [facility] Comment on above: IG% - Immature Granu locytes (promyelocytes, myelocytes and metamyelocytes) > 1% indicates that a LEFT SHIFT is Present. MCH (RBC) [Entitic mass] 28.2 pg 27.0-32.0 [facility] Nucleated RBC/100 WBC (Bld) [Ratio] 0 % 0-5 [facility] MCHC Auto (RBC) [Mass/Vol]Or dered By: Scott Steele on 04-21-2023 MCHC (RBC) [Mass/Vol] 32.0 g/dL 32-36 [facility] Mucus LM Ql (Urine sed)Order ed By: Scott Steele on 04-21-2023 Mucus Ql (Urine sed) 0 SEEN /hpf [facility] Nitrite Test strip Ql (U)Ord ered By: Scott Steele on 04-21-2023 Nitrite Ql (U) Negative Negative [facility] No Panel InformationOrdered By: Kiara Pearce on 04-21-2023 Hepatitis B Core IgM Antibody Negative Negative [facility] Comment on above: Performed at: [employer] [facility] [address] [id number] Director: Han Das PhD, Phone: [phone] Hepatitis B Surface Antigen Non-Reactive Nonreactive [facility] No Panel InformationOrdered By: Scott Steele on 04-21-2023 Estimated GFR (MDRD) Amer 84 mL/min >60 [facility] Comment on above: GFR Calc Estimated GFR (MDRD) Non-Af Amer 69 mL/min >60 [facility] Comment on above: Non- GFR Calc Total Iron Binding Capacity 329 ug/dL 250-450 [facility] Urine Microalbumin/Creatinine Ratio 19.7 mg/g CRE <30 [facility] Vitamin D 25-Hydroxy 66.6 ng/mL [facility] Comment on above: Vitamin D 25(OH) Sta tus Range Deficiency <20 ng/mL (50nmol/L) Insufficiency 20 - 30 ng/mL (50 - 75 nmol/L) Sufficiency 30 - 100 ng/mL (75 - 250 nmol/L) Toxicity >100 ng/mL (>250 nmol/L) Platelets bldOrdered By: Syed Steele on 04-21-2023 Platelets (Bld) [#/Vol] 300 10*3/uL 150-450 [facility] Protein Test strip Ql (U)Ord ered By: Scott Steele on 04-21-2023 Protein Ql (U) Negative Negative [facility] Serum hepatitis B virus core antibody detectionOrdered By: Kiara Pearce on 04-21-2023 HBV core Ab Ql (S) Negative Negative [facility] Serum hepatitis B virus surf ladonna antibody IgG detectionOrdered By: Kiara Pearce on 04-21-2023 HBV surface IgG Ql (S) Non-Reactive [facility] Comment on above: Non Reactive: Incons istent with immunity less than <10 mIU/mL Reactive: Consistent with immunity greater than or equal to 10 mIU/mL Serum or plasma albumin char[place] urement (mass/volume)Ordered By: Scott Steele on 04-21-2023 Albumin [Mass/Vol] 3.9 g/dL 3.2-5.0 [facility] Serum or plasma albumin/glob ulin mass ratioOrdered By: Scott Steele on 04-21-2023 Albumin/Globulin [Mass ratio] 1.0 {ratio} 0.9-2.4 [facility] Serum or plasma calcium charlotte urement (mass/volume)Ordered By: Scott Steele on 04-21-2023 Calcium [Mass/Vol] 10.0 mg/dL 8.5-10.1 [facility] Serum or plasma cholesterol in HDL measurement (mass/volume)Ordered By: Scott Steele on 04-21-2023 Cholesterol in HDL [Mass/Vol] 57 mg/dL >40 [facility] Comment on above: The drugs N-Acetylcy steine and Metamizole may falsely depress this assay. Reference Range HDL <40 mg/dL Low HDL Cholesterol HDL >or= 60 mg/dL High HDL Cholesterol Serum or plasma cholesterol in VLDL measurement (mass/volume)Ordered By: Scott Steele on 04-21-2023 Cholesterol in VLDL [Mass/Vol] 22 mg/dL 5-40 [facility] Serum or plasma creatinine m easurement (mass/volume)Ordered By: Scott Steele on 04-21-2023 Creatinine [Mass/Vol] 0.87 mg/dL 0.55-1.02 [facility] Comment on above: The validity of the calculated GFR & GFRAA in patients over 70 years has not been determined. Clinical correlation is essential. Serum or plasma ferritin mitzy surement (mass/volume)Ordered By: Scott Steele on 04-21-2023 Ferritin [Mass/Vol] 23 ng/mL 8-252 [facility] Serum or plasma folate measu rement (mass/volume)Ordered By: Scott Steele on 04-21-2023 Folate [Mass/Vol] 29.10 ng/mL 3.1-55.4 [facility] Serum or plasma low density lipoprotein (LDL) cholesterol measurement (mass/volume)Ordered By: Scott Steele on 04-21-2023 Cholesterol in LDL [Mass/Vol] 55 mg/dL 0-130 [facility] Serum or plasma urea nitroge n measurement (mass/volume)Ordered By: Scott Steele on 04-21-2023 Urea nitrogen [Mass/Vol] 23 mg/dL 7-18 [facility] Squamous epithelial cells de tection in urine sediment by light microscopyOrdered By: Scott Steele on 04-21-2023 Epithelial cells.squamous LM Ql (Urine sed) 0 SEEN /hpf 5-10 [facility] Thin prep Papanicolaou smear with manual screeningOrdered By: Scott Steele on 04-21-2023 Thin prep Papanicolaou smear with manual screening 17 U/L 15-37 [facility] Thin prep Papanicolaou smear with manual screening 8 5-15 [facility] Thin prep Papanicolaou smear with manual screening 10.1 mg/L NO RANGE EST. [facility] Urine blood detectionOrdered By: Scott Steele on 04-21-2023 RBC Ql (U) Negative Negative [facility] RBC Ql (U) 0 SEEN /hpf 0-5 [facility] Urine clarityOrdered By: Syed Steele on 04-21-2023 Clarity (U) Clear Clear [facility] Urine color determinationOrd ered By: Scott Steele on 04-21-2023 Color (U) Yellow Yellow [facility] Urine creatinine measurement (mass/volume)Ordered By: Scott Steele on 04-21-2023 Creatinine (U) [Mass/Vol] 51.20 mg/dL NO RANGE EST. [facility] Urine glucose detectionOrder ed By: Scott Steele on 04-21-2023 Glucose Ql (U) 1000 mg/dl Normal [facility] Urine leukocyte esterase det ection by dipstickOrdered By: Scott Steele on 04-21-2023 Leukocyte esterase Test strip Ql (U) Negative Negative [facility] Urine pHOrdered By: Scott carter on 04-21-2023 pH (U) 5.0 [pH] 5.0 - 8.0 [facility] Urine protein measurement (m ass/volume)Ordered By: Scott Steele on 04-21-2023 Protein (U) [Mass/Vol] mg/dL 0.0-11.8 [facility] Urine protein/creatinine mas s ratioOrdered By: Scott Steele on 04-21-2023 Protein/Creatinine (U) [Mass ratio] 100 mg/g CRE 0-200 [facility] Urine sediment bacteria coun t by microscopy (number/high power field)Ordered By: Scott Steele on 04-21-2023 Bacteria LM.HPF (Urine sed) [#/Area] 0 /[HPF] None Seen [facility] Urine specific gravity measu rementOrdered By: Scott Steele on 04-21-2023 Specific gravity (U) [Rel density] 1.015 1.002-1.030 [facility] Urobilinogen Auto test strip Ql (U)Ordered By: Scott Steele on 04-21-2023 Urobilinogen Ql (U) Normal mg/dl Normal [facility] Whole blood hemoglobin A1c/t otal hemoglobin ratio (mass fraction)Ordered By: Scott Steele on 04-21-2023 HbA1c (Bld) [Mass fraction] 5.8 % 3.8-5.6 [facility] Comment on above: Normal < 5.7 % Predi abetic 5.7 - 6.4 % Diabetic >or= 6.5 % Please note range changes. Basophil percentageOrdered B y: Kiara Pearce on 03-21-2023 Cholesterol [Mass/Vol] 137 mg/dL <200 [facility] Comment on above: <200 mg/dL Desirable 200-240 mg/dL Borderline >240 mg/dL High Risk Triglyceride [Mass/Vol] 95 mg/dL <199 [facility] Comment on above: The drugs N-Acetylcy steine and Metamizole may falsely depress this assay.Serum Triglycerides Reference Interval Normal <150 mg/dL Borderline high 150 - 199 mg/dL High 200 - 499 mg/dL Very High > or = 500 mg/dL Mitotic spindle apparatus Ab [Titer] in Serum or PlasmaOrdered By: Kiara Pearce on 03-21-2023 Mitotic spindle apparatus Ab [Titer] Not Reportable [facility] No Panel InformationOrdered By: Kiara Pearce on 03-21-2023 CHRISSY Nuclear Membrane Pattern Not Reportable [facility] Hepatitis A IgM Antibody Negative Negative [facility] Comment on above: Performed at: - [address] [id number] Director: Han Das PhD, Phone: [phone] at: [facility] Lab[address] [id number] Director: Melissa Benavides MD, Phone: [phone] Hepatitis C Antibody Non-Reactive Nonreactive [facility] Comment on above: Non Reactive: < 0.8 Equivocal: >/= 0.8 to < 1.0 Reactive: >/= 1.0The CDC recommends that a reactive/equivocal HCV antibody result be followed up by the HCV Nucleic Acid Amplificationtest (016239) Immunoglobulin E 30 IU/mL 6-495 [facility] Serum hepatitis B virus core antibody detectionOrdered By: Kiara Pearce on 03-21-2023 HBV core Ab Ql (S) Negative Negative [facility] Serum midbody antibody titer by immunofluorescenceOrdered By: Kiara Pearce on 03-21-2023 Midbody Ab IF (S) [Titer] Not Reportable [facility] Serum multiple nuclear dot p attern antinuclear IgG antibody (CHRISSY) titer by immunofluoOrdered By: Kiara Pearce on 03-21-2023 Multiple nuclear dots nuclear IgG pattern IF (S) [Titer] Not Reportable [facility] Serum neuronal nuclear antib hugo detection by immunofluorescenceOrdered By: Kiara Pearce on 03-21-2023 Neuronal nuclear Ab IF Ql (S) Not Reportable [facility] Serum nuclear antibody patte rn homogenous titer by immunofluorescenceOrdered By: Kiara Pearce on 03-21-2023 Homogenous nuclear Ab pattern IF (S) [Titer] Not Reportable [facility] Serum nuclear antibody titer by immunofluorescenceOrdered By: Kiara Pearce on 03-21-2023 Nuclear Ab IF (S) [Titer] Negative . [facility] Comment on above: Negative <1:80 Shanti carlson 1:80 Positive >1:80ICAP nomenclature: [id number] more information about Hep-2 cell patterns useANApatterns.org, the official website for theInternational Consensus on Antinuclear Antibody (CHRISSY)Patterns (ICAP).Performed at: [address] [id number] Director: Han Das PhD, Phone: [phone] Serum or plasma IgA measurem ent (mass/volume)Ordered By: Kiara Pearce on 03-21-2023 IgA [Mass/Vol] 199 mg/dL 87-352 [facility] Serum or plasma IgG measurem ent (mass/volume)Ordered By: Kiara Pearce on 03-21-2023 IgG [Mass/Vol] 806 mg/dL [id number] [facility] Serum or plasma IgM measurem ent (mass/volume)Ordered By: Kiara Pearce on 03-21-2023 IgM [Mass/Vol] 584 mg/dL 26-217 [facility] Serum or plasma cholesterol in HDL measurement (mass/volume)Ordered By: Kiara Pearce on 03-21-2023 Cholesterol in HDL [Mass/Vol] 54 mg/dL >40 [facility] Comment on above: The drugs N-Acetylcy steine and Metamizole may falsely depress this assay. Reference Range HDL <40 mg/dL Low HDL Cholesterol HDL >or= 60 mg/dL High HDL Cholesterol Serum or plasma cholesterol in VLDL measurement (mass/volume)Ordered By: Kiara Pearce on 03-21-2023 Cholesterol in VLDL [Mass/Vol] 19 mg/dL 5-40 [facility] Serum or plasma low density lipoprotein (LDL) cholesterol measurement (mass/volume)Ordered By: Kiara Pearce on 03-21-2023 Cholesterol in LDL [Mass/Vol] 64 mg/dL 0-130 [facility] Serum or plasma thyroperoxid ase antibody assay (units/volume)Ordered By: Kiara Pearce on 03-21-2023 TPO Ab Qn 10 [IU]/mL 0-34 [facility] Serum proliferating cell nuc lear antigen (PCNA) antibody titer by immunofluorescenceOrdered By: Kiara Pearce on 03-21-2023 PCNA extractable nuclear Ab IF (S) [Titer] Not Reportable [facility] Serum rheumatoid factor dete ctionOrdered By: Kiara Pearce on 03-21-2023 Rheumatoid factor Ql (S) < 10.0 IU/mL <15 [facility] Serum speckled nuclear antib hugo pattern titerOrdered By: Kiara Pearce on 03-21-2023 Speckled nuclear Ab pattern (S) [Titer] Not Reportable [facility] Thin prep Papanicolaou smear with manual screeningOrdered By: Kiara Pearce on 03-21-2023 Thin prep Papanicolaou smear with manual screening Not Reportable [facility] Whole blood hemoglobin A1c/t otal hemoglobin ratio (mass fraction)Ordered By: Kiara Pearce on 03-21-2023 HbA1c (Bld) [Mass fraction] 5.6 % 3.8-5.6 [facility] Comment on above: Normal < 5.7 % Predi abetic 5.7 - 6.4 % Diabetic >or= 6.5 % Please note range changes. Absolute lymphocyte countOrd ered By: Scott Steele on 12-16-2022 Lymphocytes Auto (Unsp spec) [#/Vol] 2.18 10*3/uL 0.83-4.51 [facility] Basophil percentageOrdered B y: Scott Steele on 12-16-2022 Basophil percentage 0 SEEN /hpf 0-5 [facility] Basophil percentage 3.9 mg/dL 2.5-4.9 [facility] Basophils/100 WBC (Bld) 0.6 % 0-1 [facility] Bilirubin [Mass/Vol] 0.40 mg/dL 0.20-1.00 [facility] Comment on above: For patients on eltr ombopag therapy, use of Dimension [place] TBIL is not recommended. Chloride [Moles/Vol] 103 mmol/L 98-107 [facility] Cholesterol [Mass/Vol] 143 mg/dL <200 [facility] Comment on above: <200 mg/dL Desirable 200-240 mg/dL Borderline >240 mg/dL High Risk Eosinophils/100 WBC (Bld) 1.3 % 0-5 [facility] Glucose [Mass/Vol] 101 mg/dL 74-106 [facility] Comment on above: Fasting Glucose resu lt from 100 to 125 mg/dL suggests IMPAIRED HOMEOSTASIS per A.D.A. criteria. Neutrophils (Bld) [#/Vol] 5.5 10*3/uL 2.0-7.7 [facility] Neutrophils/100 WBC (Bld) 64.6 % 47-70 [facility] Potassium [Moles/Vol] 4.4 mmol/L 3.5-5.1 [facility] Protein [Mass/Vol] 8.0 g/dL 6.4-8.2 [facility] Sodium [Moles/Vol] 137 mmol/L 136-145 [facility] Triglyceride [Mass/Vol] 157 mg/dL <199 [facility] Comment on above: The drugs N-Acetylcy steine and Metamizole may falsely depress this assay.Serum Triglycerides Reference Interval Normal <150 mg/dL Borderline high 150 - 199 mg/dL High 200 - 499 mg/dL Very High > or = 500 mg/dL WBC (Bld) [#/Vol] 8.4 10*3/uL 4.4-11.0 [facility] Bilirubin Test strip Ql (U)O rdered By: Scott Steele on 12-16-2022 Bilirubin Ql (U) Negative Negative [facility] Blood erythrocytes count (nu mber/volume)Ordered By: Scott Steele on 12-16-2022 RBC (Bld) [#/Vol] 4.68 10*6/uL 4.2-5.4 [facility] Blood hemoglobin measurement (mass/volume)Ordered By: Scott Steele on 12-16-2022 Hemoglobin (Bld) [Mass/Vol] 12.7 g/dL 12.0-15.0 [facility] Blood lymphocytes/100 leukoc ytesOrdered By: Scott Steele on 12-16-2022 Lymphocytes/100 WBC (Bld) 25.9 % 19-41 [facility] Blood monocytes/100 leukocyt esOrdered By: Scott Steele on 12-16-2022 Monocytes/100 WBC (Bld) 7.2 % 0-10 [facility] Blood platelet mean volumeOr dered By: Scott Steele on 12-16-2022 Platelet mean volume (Bld) [Entitic vol] 11.7 fL 6.2-12.0 [facility] Determination of erythrocyte mean corpuscular volume (MCV)Ordered By: Scott Steele on 12-16-2022 MCV (RBC) [Entitic vol] 87.2 fL 81-99 [facility] Hematocrit Auto (Bld) [Volum e fraction]Ordered By: Scott Steele on 12-16-2022 Hematocrit (Bld) [Volume fraction] 40.8 % 37-47 [facility] Iron measurement (mass/mass) Ordered By: Scott Steele on 12-16-2022 Iron (Unsp spec) [Mass/Mass] 38 ug/dL 50-170 [facility] Ketones Test strip Ql (U)Ord ered By: Scott Steele on 12-16-2022 Ketones Ql (U) Negative Negative [facility] Laboratory - Chemistry and C hemistry - challengeOrdered By: Scott Steele on 12-16-2022 ALP [Catalytic activity/Vol] 41 U/L 45-117 [facility] ALT [Catalytic activity/Vol] 26 U/L 13-56 [facility] CO2 [Moles/Vol] 27.0 mmol/L 21.0-32.0 [facility] Cobalamin (Vitamin B12) [Mass/Vol] 289 pg/mL 211-911 [facility] Globulin (S) [Mass/Vol] 4.0 g/dL 2.2-4.2 [facility] Urea nitrogen/Creatinine [Mass ratio] 22.2 mg/mg 10-20 [facility] - Hematology and Cell countsOrdered By: Scott Steele on 12-16-2022 Erythrocyte distribution width (RBC) [Entitic vol] 50.5 fL 35.1-43.9 [facility] Erythrocyte distribution width (RBC) [Ratio] 16.0 % 11.6-14.6 [facility] Immature granulocytes/100 WBC (Bld) 0.400 % 0.0-0.9 [facility] Comment on above: IG% - Immature Granu locytes (promyelocytes, myelocytes and metamyelocytes) > 1% indicates that a LEFT SHIFT is Present. MCH (RBC) [Entitic mass] 27.1 pg 27.0-32.0 [facility] Nucleated RBC/100 WBC (Bld) [Ratio] 0 % 0-5 [facility] MCHC Auto (RBC) [Mass/Vol]Or dered By: Scott Steele on 12-16-2022 MCHC (RBC) [Mass/Vol] 31.1 g/dL 32-36 [facility] Mucus LM Ql (Urine sed)Order ed By: Scott Steele on 12-16-2022 Mucus Ql (Urine sed) 0 SEEN /hpf [facility] Nitrite Test strip Ql (U)Ord ered By: Scott Steele on 12-16-2022 Nitrite Ql (U) Negative Negative [facility] No Panel InformationOrdered By: Scott Steele on 12-16-2022 Estimated GFR (MDRD) Amer 81 mL/min >60 [facility] Comment on above: GFR Calc Estimated GFR (MDRD) Non-Af Amer 67 mL/min >60 [facility] Comment on above: Non- GFR Calc Total Iron Binding Capacity 360 ug/dL 250-450 [facility] Urine Microalbumin/Creatinine Ratio 12.9 mg/g CRE <30 [facility] Vitamin D 25-Hydroxy 67.9 ng/mL [facility] Comment on above: Vitamin D 25(OH) Sta tus Range Deficiency <20 ng/mL (50nmol/L) Insufficiency 20 - 30 ng/mL (50 - 75 nmol/L) Sufficiency 30 - 100 ng/mL (75 - 250 nmol/L) Toxicity >100 ng/mL (>250 nmol/L) Platelets bldOrdered By: Syed Steele on 12-16-2022 Platelets (Bld) [#/Vol] 325 10*3/uL 150-450 [facility] Protein Test strip Ql (U)Ord ered By: Scott Steele on 12-16-2022 Protein Ql (U) Negative Negative [facility] Serum or plasma albumin [place] urement (mass/volume)Ordered By: Scott Steele on 12-16-2022 Albumin [Mass/Vol] 4.0 g/dL 3.2-5.0 [facility] Serum or plasma albumin/glob ulin mass ratioOrdered By: Scott Steele on 12-16-2022 Albumin/Globulin [Mass ratio] 1.0 {ratio} 0.9-2.4 [facility] Serum or plasma calcium [place] urement (mass/volume)Ordered By: Scott Steele on 12-16-2022 Calcium [Mass/Vol] 9.7 mg/dL 8.5-10.1 [facility] Serum or plasma cholesterol in HDL measurement (mass/volume)Ordered By: Scott Steele on 12-16-2022 Cholesterol in HDL [Mass/Vol] 54 mg/dL >40 [facility] Comment on above: The drugs N-Acetylcy steine and Metamizole may falsely depress this assay. Reference Range HDL <40 mg/dL Low HDL Cholesterol HDL >or= 60 mg/dL High HDL Cholesterol Serum or plasma cholesterol in VLDL measurement (mass/volume)Ordered By: Scott Steele on 12-16-2022 Cholesterol in VLDL [Mass/Vol] 31 mg/dL 5-40 [facility] Serum or plasma creatinine m easurement (mass/volume)Ordered By: Scott Steele on 12-16-2022 Creatinine [Mass/Vol] 0.90 mg/dL 0.55-1.02 [facility] Comment on above: The validity of the calculated GFR & GFRAA in patients over 70 years has not been determined. Clinical correlation is essential. Serum or plasma ferritin mitzy surement (mass/volume)Ordered By: Scott Steele on 12-16-2022 Ferritin [Mass/Vol] 17 ng/mL 8-252 [facility] Serum or plasma folate measu rement (mass/volume)Ordered By: Scott Steele on 12-16-2022 Folate [Mass/Vol] 25.90 ng/mL 3.1-55.4 [facility] Serum or plasma low density lipoprotein (LDL) cholesterol measurement (mass/volume)Ordered By: Scott Steele on 12-16-2022 Cholesterol in LDL [Mass/Vol] 58 mg/dL 0-130 [facility] Serum or plasma urea nitroge n measurement (mass/volume)Ordered By: Scott Steele on 12-16-2022 Urea nitrogen [Mass/Vol] 20 mg/dL 7-18 [facility] Squamous epithelial cells de tection in urine sediment by light microscopyOrdered By: Scott Steele on 12-16-2022 Epithelial cells.squamous LM Ql (Urine sed) 0-5 SEEN /hpf 5-10 [facility] Thin prep Papanicolaou smear with manual screeningOrdered By: Scott Steele on 12-16-2022 Thin prep Papanicolaou smear with manual screening 20 U/L 15-37 [facility] Thin prep Papanicolaou smear with manual screening 7 5-15 [facility] Thin prep Papanicolaou smear with manual screening 9.0 mg/L NO RANGE EST. [facility] Urine blood detectionOrdered By: Scott Steele on 12-16-2022 RBC Ql (U) Negative Negative [facility] RBC Ql (U) 0 SEEN /hpf 0-5 [facility] Urine clarityOrdered By: Syed Steele on 12-16-2022 Clarity (U) Clear Clear [facility] Urine color determinationOrd ered By: Scott Steele on 12-16-2022 Color (U) Yellow Yellow [facility] Urine creatinine measurement (mass/volume)Ordered By: Scott Steele on 12-16-2022 Creatinine (U) [Mass/Vol] 69.80 mg/dL NO RANGE EST. [facility] Urine glucose detectionOrder ed By: Scott Steele on 12-16-2022 Glucose Ql (U) 1000 mg/dl Normal [facility] Urine leukocyte esterase det ection by dipstickOrdered By: Scott Steele on 12-16-2022 Leukocyte esterase Test strip Ql (U) Negative Negative [facility] Urine pHOrdered By: Scott carter on 12-16-2022 pH (U) 5.0 [pH] 5.0 - 8.0 [facility] Urine protein measurement (m ass/volume)Ordered By: Scott Steele on 12-16-2022 Protein (U) [Mass/Vol] mg/dL 0.0-11.8 [facility] Urine protein/creatinine mas s ratioOrdered By: Scott Steele on 12-16-2022 Protein/Creatinine (U) [Mass ratio] TNP [facility] Comment on above: Test not performed Urine sediment bacteria coun t by microscopy (number/high power field)Ordered By: Scott Steele on 12-16-2022 Bacteria LM.HPF (Urine sed) [#/Area] 0 /[HPF] None Seen [facility] Urine specific gravity measu rementOrdered By: Scott Steele on 12-16-2022 Specific gravity (U) [Rel density] 1.015 1.002-1.030 [facility] Urobilinogen Auto test strip Ql (U)Ordered By: Scott Steele on 12-16-2022 Urobilinogen Ql (U) Normal mg/dl Normal [facility] Whole blood hemoglobin A1c/t otal hemoglobin ratio (mass fraction)Ordered By: Scott Steele on 12-16-2022 HbA1c (Bld) [Mass fraction] 6.4 % 3.8-5.6 [facility] Comment on above: Normal < 5.7 % Predi abetic 5.7 - 6.4 % Diabetic >or= 6.5 % Please note range changes. Absolute lymphocyte countOrd ered By: Dr. Steele on 09-21-2022 Lymphocytes Auto (Unsp spec) [#/Vol] 1.99 10*3/uL 0.83-4.51 [facility] Basophil percentageOrdered B y: Dr. Steele on 09-21-2022 Basophils/100 WBC (Bld) 0.7 % 0-1 [facility] Bilirubin [Mass/Vol] 0.40 mg/dL 0.20-1.00 [facility] Comment on above: For patients on eltr ombopag therapy, use of Dimension [place] TBIL is not recommended. Chloride [Moles/Vol] 105 mmol/L 98-107 [facility] Eosinophils/100 WBC (Bld) 1.1 % 0-5 [facility] Glucose [Mass/Vol] 103 mg/dL 74-106 [facility] Comment on above: Fasting Glucose resu lt from 100 to 125 mg/dL suggests IMPAIRED HOMEOSTASIS per A.D.A. criteria. Neutrophils (Bld) [#/Vol] 4.8 10*3/uL 2.0-7.7 [facility] Neutrophils/100 WBC (Bld) 64.0 % 47-70 [facility] Potassium [Moles/Vol] 4.3 mmol/L 3.5-5.1 [facility] Protein [Mass/Vol] 7.7 g/dL 6.4-8.2 [facility] Sodium [Moles/Vol] 139 mmol/L 136-145 [facility] WBC (Bld) [#/Vol] 7.5 10*3/uL 4.4-11.0 [facility] Blood erythrocytes count (nu mber/volume)Ordered By: Dr. Steele on 09-21-2022 RBC (Bld) [#/Vol] 4.41 10*6/uL 4.2-5.4 [facility] Blood hemoglobin measurement (mass/volume)Ordered By: Dr. Steele on 09-21-2022 Hemoglobin (Bld) [Mass/Vol] 11.5 g/dL 12.0-15.0 [facility] Blood lymphocytes/100 leukoc ytesOrdered By: Dr. Steele on 09-21-2022 Lymphocytes/100 WBC (Bld) 26.4 % 19-41 [facility] Blood monocytes/100 leukocyt esOrdered By: Dr. Steele on 09-21-2022 Monocytes/100 WBC (Bld) 7.4 % 0-10 [facility] Blood platelet mean volumeOr dered By: Dr. Steele on 09-21-2022 Platelet mean volume (Bld) [Entitic vol] 10.9 fL 6.2-12.0 [facility] Determination of erythrocyte mean corpuscular volume (MCV)Ordered By: Dr. Steele on 09-21-2022 MCV (RBC) [Entitic vol] 83.9 fL 81-99 [facility] Hematocrit Auto (Bld) [Volum e fraction]Ordered By: Dr. Steele on 09-21-2022 Hematocrit (Bld) [Volume fraction] 37.0 % 37-47 [facility] Iron measurement (mass/mass) Ordered By: Dr. Steele on 09-21-2022 Iron (Unsp spec) [Mass/Mass] 32 ug/dL 50-170 [facility] - Chemistry and C hemistry - challengeOrdered By: Dr. Steele on 09-21-2022 ALP [Catalytic activity/Vol] 41 U/L 45-117 [facility] ALT [Catalytic activity/Vol] 29 U/L 13-56 [facility] CO2 [Moles/Vol] 22.0 mmol/L 21.0-32.0 [facility] Cobalamin (Vitamin B12) [Mass/Vol] 284 pg/mL 211-911 [facility] Globulin (S) [Mass/Vol] 3.6 g/dL 2.2-4.2 [facility] Urea nitrogen/Creatinine [Mass ratio] 18.8 mg/mg 10-20 [facility] - Hematology and Cell countsOrdered By: Dr. Steele on 09-21-2022 Erythrocyte distribution width (RBC) [Entitic vol] 49.4 fL 35.1-43.9 [facility] Erythrocyte distribution width (RBC) [Ratio] 16.2 % 11.6-14.6 [facility] Immature granulocytes/100 WBC (Bld) 0.400 % 0.0-0.9 [facility] Comment on above: IG% - Immature Granu locytes (promyelocytes, myelocytes and metamyelocytes) > 1% indicates that a LEFT SHIFT is Present. MCH (RBC) [Entitic mass] 26.1 pg 27.0-32.0 [facility] Nucleated RBC/100 WBC (Bld) [Ratio] 0 % 0-5 [facility] MCHC Auto (RBC) [Mass/Vol]Or dered By: Dr. Steele on 09-21-2022 MCHC (RBC) [Mass/Vol] 31.1 g/dL 32-36 [facility] No Panel InformationOrdered By: Dr. Steele on 09-21-2022 Estimated GFR (MDRD) Amer 71 mL/min >60 [facility] Comment on above: GFR Calc Estimated GFR (MDRD) Non-Af Amer 58 mL/min >60 [facility] Comment on above: Non- GFR Calc Total Iron Binding Capacity 368 ug/dL 250-450 [facility] Platelets bldOrdered By: Dr. Steele on 09-21-2022 Platelets (Bld) [#/Vol] 311 10*3/uL 150-450 [facility] Serum or plasma albumin [place] urement (mass/volume)Ordered By: Dr. Steele on 09-21-2022 Albumin [Mass/Vol] 4.1 g/dL 3.2-5.0 [facility] Serum or plasma albumin/glob ulin mass ratioOrdered By: Dr. Steele on 09-21-2022 Albumin/Globulin [Mass ratio] 1.1 {ratio} 0.9-2.4 [facility] Serum or plasma calcium [place] urement (mass/volume)Ordered By: Dr. Steele on 09-21-2022 Calcium [Mass/Vol] 9.6 mg/dL 8.5-10.1 [facility] Serum or plasma creatinine m easurement (mass/volume)Ordered By: Dr. Steele on 09-21-2022 Creatinine [Mass/Vol] 1.01 mg/dL 0.55-1.02 [facility] Comment on above: The validity of the calculated GFR & GFRAA in patients over 70 years has not been determined. Clinical correlation is essential. Serum or plasma ferritin mitzy surement (mass/volume)Ordered By: Dr. Steele on 09-21-2022 Ferritin [Mass/Vol] 10 ng/mL 8-252 [facility] Serum or plasma folate measu rement (mass/volume)Ordered By: Dr. Steele on 09-21-2022 Folate [Mass/Vol] 32.80 ng/mL 3.1-55.4 [facility] Serum or plasma urea nitroge n measurement (mass/volume)Ordered By: Dr. Steele on 09-21-2022 Urea nitrogen [Mass/Vol] 19 mg/dL 7-18 [facility] Thin prep Papanicolaou smear with manual screeningOrdered By: Dr. Steele on 09-21-2022 Thin prep Papanicolaou smear with manual screening 20 U/L 15-37 [facility] Thin prep Papanicolaou smear with manual screening 12 5-15 [facility] Whole blood hemoglobin A1c/t otal hemoglobin ratio (mass fraction)Ordered By: Dr. Steele on 09-21-2022 HbA1c (Bld) [Mass fraction] 7.9 % 3.8-5.6 [facility] Comment on above: Normal < 5.7 % Predi abetic 5.7 - 6.4 % Diabetic >or= 6.5 % Please note range changes. Basophil percentageOrdered B y: Dr. Steele on 09-15-2022 Chloride [Moles/Vol] 104 mmol/L 98-107 [facility] Glucose [Mass/Vol] 111 mg/dL 74-106 [facility] Comment on above: Fasting Glucose resu lt from 100 to 125 mg/dL suggests IMPAIRED HOMEOSTASIS per A.D.A. criteria. Potassium [Moles/Vol] 4.0 mmol/L 3.5-5.1 [facility] Sodium [Moles/Vol] 135 mmol/L 136-145 [facility] [facility] measurement (mass/mass) Ordered By: Dr. Steele on 09-15-2022 Iron (Unsp spec) [Mass/Mass] 36 ug/dL 50-170 [facility] - Chemistry and C hemistry - challengeOrdered By: Dr. Steele on 09-15-2022 CO2 [Moles/Vol] 25.0 mmol/L 21.0-32.0 [facility] Cobalamin (Vitamin B12) [Mass/Vol] 317 pg/mL 211-911 [facility] Urea nitrogen/Creatinine [Mass ratio] 19.6 mg/mg 10-20 [facility] No Panel InformationOrdered By: Dr. Steele on 09-15-2022 Estimated GFR (MDRD) Amer 74 mL/min >60 [facility] Comment on above: GFR Calc Estimated GFR (MDRD) Non-Af Amer 61 mL/min >60 [facility] Comment on above: Non- GFR Calc Total Iron Binding Capacity 354 ug/dL 250-450 [facility] Serum or plasma calcium charlotte urement (mass/volume)Ordered By: Dr. Steele on 09-15-2022 Calcium [Mass/Vol] 9.9 mg/dL 8.5-10.1 [facility] Serum or plasma creatinine m easurement (mass/volume)Ordered By: Dr. Steele on 09-15-2022 Creatinine [Mass/Vol] 0.97 mg/dL 0.55-1.02 [facility] Comment on above: The validity of the calculated GFR & GFRAA in patients over 70 years has not been determined. Clinical correlation is essential. Serum or plasma ferritin mitzy surement (mass/volume)Ordered By: Dr. Steele on 09-15-2022 Ferritin [Mass/Vol] 12 ng/mL 8-252 [facility] Serum or plasma urea nitroge n measurement (mass/volume)Ordered By: Dr. Steele on 09-15-2022 Urea nitrogen [Mass/Vol] 19 mg/dL 7-18 [facility] Thin prep Papanicolaou smear with manual screeningOrdered By: Dr. Steele on 09-15-2022 Thin prep Papanicolaou smear with manual screening 6 5-15 [facility] Absolute lymphocyte countOrd ered By: Dr. Steele on 07-28-2022 Lymphocytes Auto (Unsp spec) [#/Vol] 2.07 10*3/uL 0.83-4.51 [facility] Basophil percentageOrdered B y: Dr. Steele on 07-28-2022 Basophils/100 WBC (Bld) 1.1 % 0-1 [facility] Bilirubin [Mass/Vol] 0.40 mg/dL 0.20-1.00 [facility] Comment on above: For patients on eltr ombopag therapy, use of Dimension [place] TBIL is not recommended. Chloride [Moles/Vol] 99 mmol/L 98-107 [facility] Cholesterol [Mass/Vol] 129 mg/dL <200 [facility] Comment on above: <200 mg/dL Desirable 200-240 mg/dL Borderline >240 mg/dL High Risk Eosinophils/100 WBC (Bld) 1.6 % 0-5 [facility] Glucose [Mass/Vol] 265 mg/dL 74-106 [facility] Comment on above: Glucose result great er than or equal to 200 mg/dLsuggests DIABETES MELLITUS per A.D.A. criteria. Neutrophils (Bld) [#/Vol] 3.5 10*3/uL 2.0-7.7 [facility] Neutrophils/100 WBC (Bld) 55.0 % 47-70 [facility] Potassium [Moles/Vol] 4.2 mmol/L 3.5-5.1 [facility] Protein [Mass/Vol] 7.5 g/dL 6.4-8.2 [facility] Sodium [Moles/Vol] 134 mmol/L 136-145 [facility] Triglyceride [Mass/Vol] 128 mg/dL <199 [facility] Comment on above: The drugs N-Acetylcy steine and Metamizole may falsely depress this assay.Serum Triglycerides Reference Interval Normal <150 mg/dL Borderline high 150 - 199 mg/dL High 200 - 499 mg/dL Very High > or = 500 mg/dL WBC (Bld) [#/Vol] 6.4 10*3/uL 4.4-11.0 [facility] Blood erythrocytes count (nu mber/volume)Ordered By: Dr. Steele on 07-28-2022 RBC (Bld) [#/Vol] 4.51 10*6/uL 4.2-5.4 [facility] Blood hemoglobin measurement (mass/volume)Ordered By: Dr. Steele on 07-28-2022 Hemoglobin (Bld) [Mass/Vol] 11.4 g/dL 12.0-15.0 [facility] Blood lymphocytes/100 leukoc ytesOrdered By: Dr. Steele on 07-28-2022 Lymphocytes/100 WBC (Bld) 32.2 % 19-41 [facility] Blood monocytes/100 leukocyt esOrdered By: Dr. Steele on 07-28-2022 Monocytes/100 WBC (Bld) 9.3 % 0-10 [facility] Blood platelet mean volumeOr dered By: Dr. Steele on 07-28-2022 Platelet mean volume (Bld) [Entitic vol] 11.1 fL 6.2-12.0 [facility] Determination of erythrocyte mean corpuscular volume (MCV)Ordered By: Dr. Steele on 07-28-2022 MCV (RBC) [Entitic vol] 80.9 fL 81-99 [facility] Hematocrit Auto (Bld) [Volum e fraction]Ordered By: Dr. Steele on 07-28-2022 Hematocrit (Bld) [Volume fraction] 36.5 % 37-47 [facility] - Chemistry and C hemistry - challengeOrdered By: Dr. Steele on 07-28-2022 ALP [Catalytic activity/Vol] 42 U/L 45-117 [facility] ALT [Catalytic activity/Vol] 33 U/L 13-56 [facility] CO2 [Moles/Vol] 26.0 mmol/L 21.0-32.0 [facility] Globulin (S) [Mass/Vol] 3.6 g/dL 2.2-4.2 [facility] Urea nitrogen/Creatinine [Mass ratio] 16.7 mg/mg 10-20 [facility] - Hematology and Cell countsOrdered By: Dr. Steele on 07-28-2022 Erythrocyte distribution width (RBC) [Entitic vol] 47.8 fL 35.1-43.9 [facility] Erythrocyte distribution width (RBC) [Ratio] 16.4 % 11.6-14.6 [facility] Immature granulocytes/100 WBC (Bld) 0.800 % 0.0-0.9 [facility] Comment on above: IG% - Immature Granu locytes (promyelocytes, myelocytes and metamyelocytes) > 1% indicates that a LEFT SHIFT is Present. MCH (RBC) [Entitic mass] 25.3 pg 27.0-32.0 [facility] Nucleated RBC/100 WBC (Bld) [Ratio] 0 % 0-5 [facility] MCHC Auto (RBC) [Mass/Vol]Or dered By: Dr. Steele on 07-28-2022 MCHC (RBC) [Mass/Vol] 31.2 g/dL 32-36 [facility] No Panel InformationOrdered By: Dr. Steele on 07-28-2022 Estimated GFR (MDRD) Amer 70 mL/min >60 [facility] Comment on above: GFR Calc Estimated GFR (MDRD) Non-Af Amer 58 mL/min >60 [facility] Comment on above: Non- GFR Calc Urine Microalbumin/Creatinine Ratio 45.5 mg/g CRE <30 [facility] Vitamin D 25-Hydroxy 55.9 ng/mL [facility] Comment on above: Vitamin D 25(OH) Sta tus Range Deficiency <20 ng/mL (50nmol/L) Insufficiency 20 - 30 ng/mL (50 - 75 nmol/L) Sufficiency 30 - 100 ng/mL (75 - 250 nmol/L) Toxicity >100 ng/mL (>250 nmol/L) Platelets bldOrdered By: Dr. Steele on 07-28-2022 Platelets (Bld) [#/Vol] 283 10*3/uL 150-450 [facility] Serum or plasma albumin charlotte urement (mass/volume)Ordered By: Dr. Steele on 07-28-2022 Albumin [Mass/Vol] 3.9 g/dL 3.2-5.0 [facility] Serum or plasma albumin/glob ulin mass ratioOrdered By: Dr. Steele on 07-28-2022 Albumin/Globulin [Mass ratio] 1.1 {ratio} 0.9-2.4 [facility] Serum or plasma calcium charlotte urement (mass/volume)Ordered By: Dr. Steele on 07-28-2022 Calcium [Mass/Vol] 9.4 mg/dL 8.5-10.1 [facility] Serum or plasma cholesterol in HDL measurement (mass/volume)Ordered By: Dr. Steele on 07-28-2022 Cholesterol in HDL [Mass/Vol] 49 mg/dL >40 [facility] Comment on above: The drugs N-Acetylcy steine and Metamizole may falsely depress this assay. Reference Range HDL <40 mg/dL Low HDL Cholesterol HDL >or= 60 mg/dL High HDL Cholesterol Serum or plasma cholesterol in VLDL measurement (mass/volume)Ordered By: Dr. Steele on 07-28-2022 Cholesterol in VLDL [Mass/Vol] 26 mg/dL 5-40 [facility] Serum or plasma creatinine m easurement (mass/volume)Ordered By: Dr. Steele on 07-28-2022 Creatinine [Mass/Vol] 1.02 mg/dL 0.55-1.02 [facility] Comment on above: The validity of the calculated GFR & GFRAA in patients over 70 years has not been determined. Clinical correlation is essential. Serum or plasma low density lipoprotein (LDL) cholesterol measurement (mass/volume)Ordered By: Dr. Steele on 07-28-2022 Cholesterol in LDL [Mass/Vol] 54 mg/dL 0-130 [facility] Serum or plasma urea nitroge n measurement (mass/volume)Ordered By: Dr. Steele on 07-28-2022 Urea nitrogen [Mass/Vol] 17 mg/dL 7-18 [facility] Thin prep Papanicolaou smear with manual screeningOrdered By: Dr. Steele on 07-28-2022 Thin prep Papanicolaou smear with manual screening 20 U/L 15-37 [facility] Thin prep Papanicolaou smear with manual screening 9 5-15 [facility] Thin prep Papanicolaou smear with manual screening 50.5 mg/L NO RANGE EST. [facility] Urine creatinine measurement (mass/volume)Ordered By: Dr. Steele on 07-28-2022 Creatinine (U) [Mass/Vol] 111.00 mg/dL NO RANGE EST. [facility] Whole blood hemoglobin A1c/t otal hemoglobin ratio (mass fraction)Ordered By: Dr. Steele on 07-28-2022 HbA1c (Bld) [Mass fraction] 11.0 % 3.8-5.6 [facility] Comment on above: Normal < 5.7 % Predi abetic 5.7 - 6.4 % Diabetic >or= 6.5 % Please note range changes. Absolute lymphocyte countOrd ered By: Kiara Pearce on 06-20-2022 Lymphocytes Auto (Unsp spec) [#/Vol] 2.20 10*3/uL 0.83-4.51 [facility] Basophil percentageOrdered B y: Kiara Pearce on 06-20-2022 Basophils/100 WBC (Bld) 0.8 % 0-1 [facility] Chloride [Moles/Vol] 102 mmol/L 98-107 [facility] Eosinophils/100 WBC (Bld) 1.9 % 0-5 [facility] Glucose [Mass/Vol] 256 mg/dL 74-106 [facility] Comment on above: Glucose result great er than or equal to 200 mg/dLsuggests DIABETES MELLITUS per A.D.A. criteria. Neutrophils (Bld) [#/Vol] 4.7 10*3/uL 2.0-7.7 [facility] Neutrophils/100 WBC (Bld) 60.5 % 47-70 [facility] Potassium [Moles/Vol] 4.4 mmol/L 3.5-5.1 [facility] Sodium [Moles/Vol] 138 mmol/L 136-145 [facility] WBC (Bld) [#/Vol] 7.8 10*3/uL 4.4-11.0 [facility] Blood erythrocytes count (nu mber/volume)Ordered By: Kiara Pearce on 06-20-2022 RBC (Bld) [#/Vol] 4.35 10*6/uL 4.2-5.4 [facility] Blood hemoglobin measurement (mass/volume)Ordered By: Kiara Pearce on 06-20-2022 Hemoglobin (Bld) [Mass/Vol] 10.9 g/dL 12.0-15.0 [facility] Blood lymphocytes/100 leukoc ytesOrdered By: Kiara Pearce on 06-20-2022 Lymphocytes/100 WBC (Bld) 28.2 % 19-41 [facility] Blood monocytes/100 leukocyt esOrdered By: Kiara Pearce on 06-20-2022 Monocytes/100 WBC (Bld) 8.2 % 0-10 [facility] Blood platelet mean volumeOr dered By: Kiara Pearce on 06-20-2022 Platelet mean volume (Bld) [Entitic vol] 11.8 fL 6.2-12.0 [facility] Determination of erythrocyte mean corpuscular volume (MCV)Ordered By: Kiara Pearce on 06-20-2022 MCV (RBC) [Entitic vol] 82.1 fL 81-99 [facility] Hematocrit Auto (Bld) [Volum e fraction]Ordered By: Kiara Pearce on 06-20-2022 Hematocrit (Bld) [Volume fraction] 35.7 % 37-47 [facility] - Chemistry and C hemistry - challengeOrdered By: Kiara Pearce on 06-20-2022 CO2 [Moles/Vol] 24.0 mmol/L 21.0-32.0 [facility] Urea nitrogen/Creatinine [Mass ratio] 12.4 mg/mg 10-20 [facility] - Hematology and Cell countsOrdered By: Kiara Pearce on 06-20-2022 Erythrocyte distribution width (RBC) [Entitic vol] 48.1 fL 35.1-43.9 [facility] Erythrocyte distribution width (RBC) [Ratio] 16.0 % 11.6-14.6 [facility] Immature granulocytes/100 WBC (Bld) 0.400 % 0.0-0.9 [facility] Comment on above: IG% - Immature Granu locytes (promyelocytes, myelocytes and metamyelocytes) > 1% indicates that a LEFT SHIFT is Present. MCH (RBC) [Entitic mass] 25.1 pg 27.0-32.0 [facility] Nucleated RBC/100 WBC (Bld) [Ratio] 0 % 0-5 [facility] MCHC Auto (RBC) [Mass/Vol]Or dered By: Kiara Pearce on 06-20-2022 MCHC (RBC) [Mass/Vol] 30.5 g/dL 32-36 [facility] No Panel InformationOrdered By: Kiara Pearce on 06-20-2022 Estimated GFR (MDRD) Amer 62 mL/min >60 [facility] Comment on above: GFR Calc Estimated GFR (MDRD) Non-Af Amer 51 mL/min >60 [facility] Comment on above: Non- GFR Calc Platelets bldOrdered By: Felton Pearce on 06-20-2022 Platelets (Bld) [#/Vol] 314 10*3/uL 150-450 [facility] Qualitative QuantiFERON-TB g old in tube testOrdered By: Kiara Pearce on 06-20-2022 M. tuberculosis tuberculin stim IFN-g Ql (Bld) 0.04 IU/mL . [facility] Serum hepatitis B virus core antibody detectionOrdered By: Kiara Pearce on 06-20-2022 HBV core Ab Ql (S) Negative Negative [facility] Comment on above: Performed at: [facility] [address] [id number] Director: Han Das PhD, Phone: [phone] Serum or plasma calcium charlotte urement (mass/volume)Ordered By: Kiara Pearce on 06-20-2022 Calcium [Mass/Vol] 9.3 mg/dL 8.5-10.1 [facility] Serum or plasma creatinine m easurement (mass/volume)Ordered By: Kiara Pearce on 06-20-2022 Creatinine [Mass/Vol] 1.13 mg/dL 0.55-1.02 [facility] Comment on above: The validity of the calculated GFR & GFRAA in patients over 70 years has not been determined. Clinical correlation is essential. Serum or plasma urea nitroge n measurement (mass/volume)Ordered By: Kiara Pearce on 06-20-2022 Urea nitrogen [Mass/Vol] 14 mg/dL 7-18 [facility] Thin prep Papanicolaou smear with manual screeningOrdered By: Kiara Pearce on 06-20-2022 Thin prep Papanicolaou smear with manual screening 12 5-15 [facility] Thin prep Papanicolaou smear with manual screening Comment . [facility] Comment on above: QuantiFERON-TB Gold Plus is a qualitative indirect test forM tuberculosis infection (including disease) and isintended for use in conjunction with risk assessment,radiography, and other medical and diagnostic evaluations.The QuantiFERON-TB Gold Plus result is determined bysubtracting the Nil value from either TB antigen (Ag)value. The Mitogen tube serves as a control for the test. Thin prep Papanicolaou smear with manual screening 0.03 IU/mL . [facility] Thin prep Papanicolaou smear with manual screening > 10.00 IU/mL . [facility] Thin prep Papanicolaou smear with manual screening Negative Negative [facility] Comment on above: No response to M tub erculosis antigens detected.Infection with M tuberculosis is unlikely, but high riskindividuals should be considered for additional testing(ATS/IDSA/CDC Clinical Practice Guidelines, 2017). Thereference range is an Antigen minus Nil result of <0.35IU/mL.The specimen received for QuantiFERON testing was incubatedby the ordering institution. Specific procedures outlinedin our Directory of Services and in the package insert forthe QuantiFERON Gold (In Tube) test must be followed toenable for proper stimulation of cells for the productionof interferon gamma. Chemiluminescence immunoassaymethodology Absolute lymphocyte countOrd ered By: Miles Meza on 05-17-2022 Lymphocytes Auto (Unsp spec) [#/Vol] 2.47 10*3/uL 0.83-4.51 [facility] Basophil percentageOrdered B y: Miles Meza on 05-17-2022 Basophils/100 WBC (Bld) 0.9 % 0-1 [facility] Chloride [Moles/Vol] 101 mmol/L 98-107 [facility] Eosinophils/100 WBC (Bld) 2.2 % 0-5 [facility] Glucose [Mass/Vol] 140 mg/dL 74-106 [facility] Comment on above: Fasting Glucose resu lt greater than or equal to 126 mg/dL suggests DIABETES MELLITUS per A.D.A. criteria. Neutrophils (Bld) [#/Vol] 4.7 10*3/uL 2.0-7.7 [facility] Neutrophils/100 WBC (Bld) 56.7 % 47-70 [facility] Potassium [Moles/Vol] 4.4 mmol/L 3.5-5.1 [facility] Sodium [Moles/Vol] 137 mmol/L 136-145 [facility] WBC (Bld) [#/Vol] 8.2 10*3/uL 4.4-11.0 [facility] Blood erythrocytes count (nu mber/volume)Ordered By: Miles Meza on 05-17-2022 RBC (Bld) [#/Vol] 4.31 10*6/uL 4.2-5.4 [facility] Blood hemoglobin measurement (mass/volume)Ordered By: Miles Susana on 05-17-2022 Hemoglobin (Bld) [Mass/Vol] 10.9 g/dL 12.0-15.0 [facility] Blood lymphocytes/100 leukoc ytesOrdered By: [place] Susana on 05-17-2022 Lymphocytes/100 WBC (Bld) 30.1 % 19-41 [facility] Blood monocytes/100 leukocyt esOrdered By: [place] Susana on 05-17-2022 Monocytes/100 WBC (Bld) 9.4 % 0-10 [facility] Blood platelet mean volumeOr dered By: [place] Hernando on 05-17-2022 Platelet mean volume (Bld) [Entitic vol] 11.3 fL 6.2-12.0 [facility] Determination of erythrocyte mean corpuscular volume (MCV)Ordered By: Miles Susana on 05-17-2022 MCV (RBC) [Entitic vol] 81.9 fL 81-99 [facility] Hematocrit Auto (Bld) [Volum e fraction]Ordered By: [place] Susana on 05-17-2022 Hematocrit (Bld) [Volume fraction] 35.3 % 37-47 [facility] - Chemistry and C hemistry - challengeOrdered By: Miles Susana on 05-17-2022 CO2 [Moles/Vol] 28.0 mmol/L 21.0-32.0 [facility] Urea nitrogen/Creatinine [Mass ratio] 13.0 mg/mg 10-20 [facility] - Hematology and Cell countsOrdered By: Miles Susana on 05-17-2022 Erythrocyte distribution width (RBC) [Entitic vol] 47.2 fL 35.1-43.9 [facility] Erythrocyte distribution width (RBC) [Ratio] 15.9 % 11.6-14.6 [facility] Immature granulocytes/100 WBC (Bld) 0.700 % 0.0-0.9 [facility] Comment on above: IG% - Immature Granu locytes (promyelocytes, myelocytes and metamyelocytes) > 1% indicates that a LEFT SHIFT is Present. MCH (RBC) [Entitic mass] 25.3 pg 27.0-32.0 [facility] Nucleated RBC/100 [facility] (Bld) [[facility]] 0 [facility] [[facility]/Vol]Or dered By: Miles Meza on 05-17-2022 MCHC (RBC) [Mass/Vol] 30.9 g/dL 32-36 [facility] No Panel InformationOrdered By: Miles Meza on 05-17-2022 Estimated GFR (MDRD) Amer 72 mL/min >60 [facility] Comment on above: GFR Calc Estimated GFR (MDRD) Non-Af Amer 59 mL/min >60 [facility] Comment on above: Non- GFR Calc Platelets bldOrdered By: Jose Meza on 05-17-2022 Platelets (Bld) [#/Vol] 329 10*3/uL 150-450 [facility] Qualitative QuantiFERON-TB g old in tube testOrdered By: Miles Meza on 05-17-2022 M. tuberculosis tuberculin stim IFN-g Ql (Bld) 0.02 IU/mL . [facility] Serum hepatitis B virus core antibody detectionOrdered By: Miles Meza on 05-17-2022 HBV core Ab Ql (S) Negative Negative [facility] Comment on above: Performed at: [address] Director: Han Das PhD, Phone: [phone] Serum or plasma calcium charlotte urement (mass/volume)Ordered By: Miles Meza on 05-17-2022 Calcium [Mass/Vol] 9.7 mg/dL 8.5-10.1 [facility] Serum or plasma creatinine m easurement (mass/volume)Ordered By: Miles Meza on 05-17-2022 Creatinine [Mass/Vol] 1.00 mg/dL 0.55-1.02 [facility] Comment on above: The validity of the calculated GFR & GFRAA in patients over 70 years has not been determined. Clinical correlation is essential. Serum or plasma urea nitroge n measurement (mass/volume)Ordered By: Miles Meza on 05-17-2022 Urea nitrogen [Mass/Vol] 13 mg/dL 7-18 [facility] Thin prep Papanicolaou smear with manual screeningOrdered By: Miles Meza on 05-17-2022 Thin prep Papanicolaou smear with manual screening 8 5-15 [facility] Thin prep Papanicolaou smear with manual screening Comment . [facility] Comment on above: QuantiFERON-TB Gold Plus is a qualitative indirect test forM tuberculosis infection (including disease) and isintended for use in conjunction with risk assessment,radiography, and other medical and diagnostic evaluations.The QuantiFERON-TB Gold Plus result is determined bysubtracting the Nil value from either TB antigen (Ag)value. The Mitogen tube serves as a control for the test. Thin prep Papanicolaou smear with manual screening 0.04 IU/mL . [facility] Thin prep Papanicolaou smear with manual screening 0.03 IU/mL . [facility] Thin prep Papanicolaou smear with manual screening > 10.00 IU/mL . [facility] Thin prep Papanicolaou smear with manual screening Negative Negative [facility] Comment on above: No response to M tub erculosis antigens detected.Infection with M tuberculosis is unlikely, but high riskindividuals should be considered for additional testing(ATS/IDSA/CDC Clinical Practice Guidelines, 2017). Thereference range is an Antigen minus Nil result of <0.35IU/mL.The specimen received for QuantiFERON testing was incubatedby the ordering institution. Specific procedures outlinedin our Directory of Services and in the package insert forthe QuantiFERON Gold (In Tube) test must be followed toenable for proper stimulation of cells for the productionof interferon gamma. Chemiluminescence immunoassaymethodology Basophil percentageOrdered B y: Dr. Steele on 03-15-2022 Chloride [Moles/Vol] 104 mmol/L 98-107 [facility] Glucose [Mass/Vol] 179 mg/dL 74-106 [facility] Comment on above: Fasting Glucose resu lt greater than or equal to 126 mg/dL suggests DIABETES MELLITUS per A.D.A. criteria. Potassium [Moles/Vol] 4.4 mmol/L 3.5-5.1 [facility] Sodium [Moles/Vol] 136 mmol/L 136-145 [facility] Laboratory - Chemistry and C hemistry - challengeOrdered By: Dr. Steele on 03-15-2022 CO2 [Moles/Vol] 26.0 mmol/L 21.0-32.0 [facility] Urea nitrogen/Creatinine [Mass ratio] 15.4 mg/mg 10-20 [facility] No Panel InformationOrdered By: Dr. Steele on 03-15-2022 Estimated GFR (MDRD) Amer 69 mL/min >60 [facility] Comment on above: GFR Calc Estimated GFR (MDRD) Non-Af Amer 57 mL/min >60 [facility] Comment on above: Non- GFR Calc Serum or plasma calcium charlotte urement (mass/volume)Ordered By: Dr. Steele on 03-15-2022 Calcium [Mass/Vol] 9.8 mg/dL 8.5-10.1 [facility] Serum or plasma creatinine m easurement (mass/volume)Ordered By: Dr. Steele on 03-15-2022 Creatinine [Mass/Vol] 1.04 mg/dL 0.55-1.02 [facility] Comment on above: The validity of the calculated GFR & GFRAA in patients over 70 years has not been determined. Clinical correlation is essential. Serum or plasma urea nitroge n measurement (mass/volume)Ordered By: Dr. Steele on 03-15-2022 Urea nitrogen [Mass/Vol] 16 mg/dL 7-18 [facility] Thin prep Papanicolaou smear with manual screeningOrdered By: Dr. Steele on 03-15-2022 Thin prep Papanicolaou smear with manual screening 6 5-15 [facility] Absolute lymphocyte countOrd ered By: Dr. Steele on 03-09-2022 Lymphocytes Auto (Unsp spec) [#/Vol] 2.29 10*3/uL 0.83-4.51 [facility] Basophil percentageOrdered B y: Dr. Steele on 03-09-2022 Basophils/100 WBC (Bld) 0.8 % 0-1 [facility] Bilirubin [Mass/Vol] 0.40 mg/dL 0.20-1.00 [facility] Comment on above: For patients on eltr ombopag therapy, use of Dimension [place] TBIL is not recommended. Chloride [Moles/Vol] 103 mmol/L 98-[address] [facility] Cholesterol [Mass/Vol] 99 mg/dL <200 [facility] Comment on above: <200 mg/dL Desirable 200-240 mg/dL Borderline >240 mg/dL High Risk Eosinophils/100 WBC (Bld) 1.9 % 0-5 [facility] Glucose [Mass/Vol] 123 mg/dL 74-106 [facility] Comment on above: Fasting Glucose resu lt from 100 to 125 mg/dL suggests IMPAIRED HOMEOSTASIS per A.D.A. criteria. Neutrophils (Bld) [#/Vol] 5.7 10*3/uL 2.0-7.7 [facility] Neutrophils/100 WBC (Bld) 63.1 % 47-70 [facility] Potassium [Moles/Vol] 4.3 mmol/L 3.5-5.1 [facility] Protein [Mass/Vol] 7.7 g/dL 6.4-8.2 [facility] Sodium [Moles/Vol] 138 mmol/L 136-145 [facility] Triglyceride [Mass/Vol] 158 mg/dL <199 [facility] Comment on above: The drugs N-Acetylcy steine and Metamizole may falsely depress this assay.Serum Triglycerides Reference Interval Normal <150 mg/dL Borderline high 150 - 199 mg/dL High 200 - 499 mg/dL Very High > or = 500 mg/dL WBC (Bld) [#/Vol] 9.0 10*3/uL 4.4-11.0 [facility] Blood erythrocytes count (nu mber/volume)Ordered By: Dr. Steele on 03-09-2022 RBC (Bld) [#/Vol] 4.27 10*6/uL 4.2-5.4 [facility] Blood hemoglobin measurement (mass/volume)Ordered By: Dr. Steele on 03-09-2022 Hemoglobin (Bld) [Mass/Vol] 11.5 g/dL 12.0-15.0 [facility] Blood lymphocytes/100 leukoc ytesOrdered By: Dr. Steele on 03-09-2022 Lymphocytes/100 WBC (Bld) 25.6 % 19-41 [facility] Blood monocytes/100 leukocyt esOrdered By: Dr. Steele on 03-09-2022 Monocytes/100 WBC (Bld) 8.0 % 0-10 [facility] Blood platelet mean volumeOr dered By: Dr. Steele on 03-09-2022 Platelet mean volume (Bld) [Entitic vol] 10.7 fL 6.2-12.0 [facility] Determination of erythrocyte mean corpuscular volume (MCV)Ordered By: Dr. Steele on 03-09-2022 MCV (RBC) [Entitic vol] 84.5 fL 81-99 [facility] Hematocrit Auto (Bld) [Volum e fraction]Ordered By: Dr. tSeele on 03-09-2022 Hematocrit (Bld) [Volume fraction] 36.1 % 37-47 [facility] Iron measurement (mass/mass) Ordered By: Dr. Steele on 03-09-2022 Iron (Unsp spec) [Mass/Mass] 33 ug/dL 50-170 [facility] Laboratory - Chemistry and C hemistry - challengeOrdered By: Dr. Steele on 03-09-2022 ALP [Catalytic activity/Vol] 42 U/L 45-117 [facility] ALT [Catalytic activity/Vol] 22 U/L 13-56 [facility] CO2 [Moles/Vol] 25.0 mmol/L 21.0-32.0 [facility] Cobalamin (Vitamin B12) [Mass/Vol] 202 pg/mL 211-911 [facility] Globulin (S) [Mass/Vol] 3.9 g/dL 2.2-4.2 [facility] Urea nitrogen/Creatinine [Mass ratio] 16.5 mg/mg 10-20 [facility] Laboratory - Hematology and Cell countsOrdered By: Dr. Steele on 03-09-2022 Erythrocyte distribution width (RBC) [Entitic vol] 47.0 fL 35.1-43.9 [facility] Erythrocyte distribution width (RBC) [Ratio] 15.5 % 11.6-14.6 [facility] Immature granulocytes/100 WBC (Bld) 0.600 % 0.0-0.9 [facility] Comment on above: IG% - Immature Granu locytes (promyelocytes, myelocytes and metamyelocytes) > 1% indicates that a LEFT SHIFT is Present. MCH (RBC) [Entitic mass] 26.9 pg 27.0-32.0 [facility] Nucleated RBC/100 WBC (Bld) [Ratio] 0 % 0-5 [facility] MCHC Auto (RBC) [Mass/Vol]Or dered By: Dr. Steele on 03-09-2022 MCHC (RBC) [Mass/Vol] 31.9 g/dL 32-36 [facility] No Panel InformationOrdered By: Dr. Steele on 03-09-2022 Estimated GFR (MDRD) Amer 69 mL/min >60 [facility] Comment on above: GFR Calc Estimated GFR (MDRD) Non-Af Amer 57 mL/min >60 [facility] Comment on above: Non- GFR Calc Total Iron Binding Capacity 323 ug/dL 250-450 [facility] Vitamin D 25-Hydroxy 74.0 ng/mL [facility] Comment on above: Vitamin D 25(OH) Sta tus Range Deficiency <20 ng/mL (50nmol/L) Insufficiency 20 - 30 ng/mL (50 - 75 nmol/L) Sufficiency 30 - 100 ng/mL (75 - 250 nmol/L) Toxicity >100 ng/mL (>250 nmol/L) Platelets bldOrdered By: Dr. Steele on 03-09-2022 Platelets (Bld) [#/Vol] 399 10*3/uL 150-450 [facility] Serum or plasma albumin [place] urement (mass/volume)Ordered By: Dr. Steele on 03-09-2022 Albumin [Mass/Vol] 3.8 g/dL 3.2-5.0 [facility] Serum or plasma albumin/glob ulin mass ratioOrdered By: Dr. Steele on 03-09-2022 Albumin/Globulin [Mass ratio] 1.0 {ratio} 0.9-2.4 [facility] Serum or plasma calcium [place] urement (mass/volume)Ordered By: Dr. Steele on 03-09-2022 Calcium [Mass/Vol] 9.4 mg/dL 8.5-10.1 [facility] Serum or plasma cholesterol in HDL measurement (mass/volume)Ordered By: Dr. Steele on 03-09-2022 Cholesterol in HDL [Mass/Vol] 39 mg/dL >40 [facility] Comment on above: The drugs N-Acetylcy steine and Metamizole may falsely depress this assay. Reference Range HDL <40 mg/dL Low HDL Cholesterol HDL >or= 60 mg/dL High HDL Cholesterol Serum or plasma cholesterol in VLDL measurement (mass/volume)Ordered By: Dr. Steele on 03-09-2022 Cholesterol in VLDL [Mass/Vol] 32 mg/dL 5-40 [facility] Serum or plasma creatinine m easurement (mass/volume)Ordered By: Dr. Steele on 03-09-2022 Creatinine [Mass/Vol] 1.03 mg/dL 0.55-1.02 [facility] Comment on above: The validity of the calculated GFR & GFRAA in patients over 70 years has not been determined. Clinical correlation is essential. Serum or plasma ferritin mitzy surement (mass/volume)Ordered By: Dr. Steele on 03-09-2022 Ferritin [Mass/Vol] 17 ng/mL 8-252 [facility] Serum or plasma iron saturat ion measurement (mass fraction)Ordered By: Dr. Steele on 03-09-2022 Iron saturation [Mass fraction] 10.2 % 15.0-55.0 [facility] Serum or plasma low density lipoprotein (LDL) cholesterol measurement (mass/volume)Ordered By: Dr. Steele on 03-09-2022 Cholesterol in LDL [Mass/Vol] 28 mg/dL 0-130 [facility] Serum or plasma urea nitroge n measurement (mass/volume)Ordered By: Dr. Steele on 03-09-2022 Urea nitrogen [Mass/Vol] 17 mg/dL 7-18 [facility] Thin prep Papanicolaou smear with manual screeningOrdered By: Dr. Steele on 03-09-2022 Thin prep Papanicolaou smear with manual screening 16 U/L 15-37 [facility] Thin prep Papanicolaou smear with manual screening 10 5-15 [facility] Whole blood hemoglobin A1c/t otal hemoglobin ratio (mass fraction)Ordered By: Dr. Steele on 03-09-2022 HbA1c (Bld) [Mass fraction] 7.4 % 3.8-5.6 [facility] Comment on above: Normal < 5.7 % Predi abetic 5.7 - 6.4 % Diabetic >or= 6.5 % Please note range changes. Basophil percentageon 2021 Bilirubin [Mass/Vol] 0.40 mg/dL 0.20-1.00 [facility] Work Phone: Comment on above: For patients on eltr ombopag therapy, use of Dimension [place] TBIL is not recommended. Chloride [Moles/Vol] 101 mmol/L 98-107 [facility] Work Phone: Cholesterol [Mass/Vol] 149 mg/dL <200 [facility] Work Phone: Comment on above: <200 mg/dL Desirable 200-240 mg/dL Borderline >240 mg/dL High Risk Glucose [Mass/Vol] 128 mg/dL 74-106 [facility] Work Phone: Comment on above: Fasting Glucose resu lt greater than or equal to 126 mg/dL suggests DIABETES MELLITUS per A.D.A. criteria. Potassium [Moles/Vol] 4.1 mmol/L 3.5-5.1 [facility] Work Phone: Protein [Mass/Vol] 8.0 g/dL 6.4-8.2 [facility] Work Phone: Sodium [Moles/Vol] 135 mmol/L 136-145 [facility] Work Phone: Triglyceride [Mass/Vol] 111 mg/dL <199 [facility] Work Phone: Comment on above: The drugs N-Acetylcy steine and Metamizole may falsely depress this assay.Serum Triglycerides Reference Interval Normal <150 mg/dL Borderline high 150 - 199 mg/dL High 200 - 499 mg/dL Very High > or = 500 mg/dL Laboratory - Chemistry and C hemistry - challengeon 11-30-2021 ALP [Catalytic activity/Vol] 39 U/L 45-117 [facility] Work Phone: ALT [Catalytic activity/Vol] 25 U/L 13-56 [facility] Work Phone: CO2 [Moles/Vol] 25.0 mmol/L 21.0-32.0 [facility] Work Phone: Globulin (S) [Mass/Vol] 3.8 g/dL 2.2-4.2 [facility] Work Phone: Urea nitrogen/Creatinine [Mass ratio] 22.7 mg/mg 10-20 [facility] Work Phone: No Panel Informationon 11-30 Estimated GFR (MDRD) Amer 79 mL/min >60 [facility] Work Phone: Comment on above: GFR Calc Estimated GFR (MDRD) Non-Af Amer 65 mL/min >60 [facility] Work Phone: Comment on above: Non- GFR Calc Urine Microalbumin/Creatinine Ratio 22.8 mg/g CRE <30 [facility] Work Phone: Vitamin D 25-Hydroxy 64.1 ng/mL [facility] Work Phone: Comment on above: Vitamin D 25(OH) Sta tus Range Deficiency <20 ng/mL (50nmol/L) Insufficiency 20 - 30 ng/mL (50 - 75 nmol/L) Sufficiency 30 - 100 ng/mL (75 - 250 nmol/L) Toxicity >100 ng/mL (>250 nmol/L) Serum or plasma albumin [place] urement (mass/volume)on 11-30-2021 Albumin [Mass/Vol] 4.2 g/dL 3.2-5.0 [facility] Work Phone: Serum or plasma albumin/glob ulin mass ratioon 11-30-2021 Albumin/Globulin [Mass ratio] 1.1 {ratio} 0.9-2.4 [facility] Work Phone: Serum or plasma calcium [place] urement (mass/volume)on 11-30-2021 Calcium [Mass/Vol] 9.7 mg/dL 8.5-10.1 [facility] Work Phone: Serum or plasma cholesterol in HDL measurement (mass/volume)on 11-30-2021 Cholesterol in HDL [Mass/Vol] 57 mg/dL >40 [facility] Work Phone: Comment on above: The drugs N-Acetylcy steine and Metamizole may falsely depress this assay. Reference Range HDL <40 mg/dL Low HDL Cholesterol HDL >or= 60 mg/dL High HDL Cholesterol Serum or plasma cholesterol in VLDL measurement (mass/volume)on 11-30-2021 Cholesterol in VLDL [Mass/Vol] 22 mg/dL 5-40 [facility] Work Phone: Serum or plasma creatinine m easurement (mass/volume)on 11-30-2021 Creatinine [Mass/Vol] 0.92 mg/dL 0.55-1.02 [facility] Work Phone: Comment on above: The validity of the calculated GFR & GFRAA in patients over 70 years has not been determined. Clinical correlation is essential. Serum or plasma low density lipoprotein (LDL) cholesterol measurement (mass/volume)on 11-30-2021 Cholesterol in LDL [Mass/Vol] 70 mg/dL 0-130 [facility] Work Phone: Serum or plasma urea nitroge n measurement (mass/volume)on 11-30-2021 Urea nitrogen [Mass/Vol] 21 mg/dL 7-18 [facility] Work Phone: Thin prep Papanicolaou smear with manual screeningon 11-30-2021 Thin prep Papanicolaou smear with manual screening 16 U/L 15-37 [facility] Work Phone: Thin prep Papanicolaou smear with manual screening 9 5-15 [facility] Work Phone: Thin prep Papanicolaou smear with manual screening 15.9 mg/L NO RANGE EST. [facility] Work Phone: Urine creatinine measurement (mass/volume)on 11-30-2021 Creatinine (U) [Mass/Vol] 69.60 mg/dL NO RANGE EST. [facility] Work Phone: Whole blood hemoglobin A1c/t otal hemoglobin ratio (mass fraction)on 11-30-2021 HbA1c (Bld) [Mass fraction] 8.1 % 3.8-5.6 [facility] Work Phone: Comment on above: Normal < 5.7 % Predi abetic 5.7 - 6.4 % Diabetic >or= 6.5 % Please note range changes. Absolute lymphocyte counton 08-27-2021 Lymphocytes Auto (Unsp spec) [#/Vol] 2.66 10*3/uL 0.83-4.51 [facility] Work Phone: Basophil percentageon 2021 Basophils/100 WBC (Bld) 0.7 % 0-1 [facility] Work Phone: Bilirubin [Mass/Vol] 0.40 mg/dL 0.20-1.00 [facility] Work Phone: Comment on above: For patients on eltr ombopag therapy, use of Dimension [place] TBIL is not recommended. Chloride [Moles/Vol] 104 mmol/L 98-107 [facility] Work Phone: Cholesterol [Mass/Vol] 176 mg/dL <200 [facility] Work Phone: Comment on above: <200 mg/dL Desirable 200-240 mg/dL Borderline >240 mg/dL High Risk Eosinophils/100 WBC (Bld) 1.3 % 0-5 [facility] Work Phone: Glucose [Mass/Vol] 139 mg/dL 74-106 [facility] Work Phone: Comment on above: Fasting Glucose resu lt greater than or equal to 126 mg/dL suggests DIABETES MELLITUS per A.D.A. criteria. Neutrophils (Bld) [#/Vol] 5.1 10*3/uL 2.0-7.7 [facility] Work Phone: Neutrophils/100 WBC (Bld) 59.3 % 47-70 [facility] Work Phone: Potassium [Moles/Vol] 4.3 mmol/L 3.5-5.1 [facility] Work Phone: Protein [Mass/Vol] 7.9 g/dL 6.4-8.2 [facility] Work Phone: Sodium [Moles/Vol] 136 mmol/L 136-145 [facility] Work Phone: Triglyceride [Mass/Vol] 127 mg/dL <199 [facility] Work Phone: [phone] Comment on above: The drugs N-Acetylcy steine and Metamizole may falsely depress this assay.Serum Triglycerides Reference Interval Normal <150 mg/dL Borderline high 150 - 199 mg/dL High 200 - 499 mg/dL Very High > or = 500 mg/dL WBC (Bld) [#/Vol] 8.7 10*3/uL 4.4-11.0 [facility] Work Phone: [phone] Blood erythrocytes count (nu mber/volume)on 08-27-2021 RBC (Bld) [#/Vol] 4.47 10*6/uL 4.2-5.4 [facility] Work Phone: Blood hemoglobin measurement (mass/volume)on 08-27-2021 Hemoglobin (Bld) [Mass/Vol] 12.3 g/dL 12.0-15.0 [facility] Work Phone: Blood lymphocytes/100 leukoc yteson 08-27-2021 Lymphocytes/100 WBC (Bld) 30.7 % 19-41 [facility] Work Phone: Blood monocytes/100 leukocyt eson 08-27-2021 Monocytes/100 WBC (Bld) 7.4 % 0-10 [facility] Work Phone: [phone] Blood platelet mean volumeon 08-27-2021 Platelet mean volume (Bld) [Entitic vol] 10.9 fL 6.2-12.0 [facility] Work Phone: Determination of erythrocyte mean corpuscular volume (MCV)on 08-27-2021 MCV (RBC) [Entitic vol] 85.7 fL 81-99 [facility] Work Phone: [phone] Hematocrit Auto (Bld) [Volum e fraction]on 08-27-2021 Hematocrit (Bld) [Volume fraction] 38.3 % 37-47 [facility] Work Phone: Laboratory - Chemistry and C hemistry - challengeon 08-27-2021 ALP [Catalytic activity/Vol] 39 U/L 45-117 [facility] Work Phone: [phone] ALT [Catalytic activity/Vol] 26 U/L 13-56 [facility] Work Phone: [phone] CO2 [Moles/Vol] 27.0 mmol/L 21.0-32.0 [facility] Work Phone: [phone] Globulin (S) [Mass/Vol] 3.8 g/dL 2.2-4.2 [facility] Work Phone: Urea nitrogen/Creatinine [Mass ratio] 21.1 mg/mg 10-20 [facility] Work Phone: Laboratory - Hematology and Cell countson 08-27-2021 Erythrocyte distribution width (RBC) [Entitic vol] 43.3 fL 35.1-43.9 [facility] Work Phone: Erythrocyte distribution width (RBC) [Ratio] 13.8 % 11.6-14.6 [facility] Work Phone: [phone] Immature granulocytes/100 WBC (Bld) 0.600 % 0.0-0.9 [facility] Work Phone: Comment on above: IG% - Immature Granu locytes (promyelocytes, myelocytes and metamyelocytes) > 1% indicates that a LEFT SHIFT is Present. MCH (RBC) [Entitic mass] 27.5 pg 27.0-32.0 [facility] Work Phone: [phone] Nucleated RBC/100 WBC (Bld) [Ratio] 0 % 0-5 [facility] Work Phone: [phone] MCHC Auto (RBC) [Mass/Vol]on 08-27-2021 MCHC (RBC) [Mass/Vol] 32.1 g/dL 32-36 [facility] Work Phone: No Panel Informationon 08-27 Estimated GFR (MDRD) Amer 77 mL/min >60 [facility] Work Phone: Comment on above: GFR Calc Estimated GFR (MDRD) Non-Af Amer 63 mL/min >60 [facility] Work Phone: Comment on above: Non- GFR Calc Urine Microalbumin/Creatinine Ratio 21.4 mg/g CRE <30 [facility] Work Phone: Vitamin D 25-Hydroxy 65.8 ng/mL [facility] Work Phone: Comment on above: Vitamin D 25(OH) Sta tus Range Deficiency <20 ng/mL (50nmol/L) Insufficiency 20 - 30 ng/mL (50 - 75 nmol/L) Sufficiency 30 - 100 ng/mL (75 - 250 nmol/L) Toxicity >100 ng/mL (>250 nmol/L) Platelets bldon 08-27-2021 Platelets (Bld) [#/Vol] 344 10*3/uL 150-450 [facility] Work Phone: Serum or plasma albumin [place] urement (mass/volume)on 08-27-2021 Albumin [Mass/Vol] 4.1 g/dL 3.2-5.0 [facility] Work Phone: Serum or plasma albumin/glob ulin mass ratioon 08-27-2021 Albumin/Globulin [Mass ratio] 1.1 {ratio} 0.9-2.4 [facility] Work Phone: Serum or plasma calcium [place] urement (mass/volume)on 08-27-2021 Calcium [Mass/Vol] 9.1 mg/dL 8.5-10.1 [facility] Work Phone: Serum or plasma cholesterol in HDL measurement (mass/volume)on 08-27-2021 Cholesterol in HDL [Mass/Vol] 63 mg/dL >40 [facility] Work Phone: Comment on above: The drugs N-Acetylcy steine and Metamizole may falsely depress this assay. Reference Range HDL <40 mg/dL Low HDL Cholesterol HDL >or= 60 mg/dL High HDL Cholesterol Serum or plasma cholesterol in VLDL measurement (mass/volume)on 08-27-2021 Cholesterol in VLDL [Mass/Vol] 25 mg/dL 5-40 [facility] Work Phone: Serum or plasma creatinine m easurement (mass/volume)on 08-27-2021 Creatinine [Mass/Vol] 0.95 mg/dL 0.55-1.02 [facility] Work Phone: Comment on above: The validity of the calculated GFR & GFRAA in patients over 70 years has not been determined. Clinical correlation is essential. Serum or plasma low density lipoprotein (LDL) cholesterol measurement (mass/volume)on 08-27-2021 Cholesterol in LDL [Mass/Vol] 88 mg/dL 0-130 [facility] Work Phone: Serum or plasma urea nitroge n measurement (mass/volume)on 08-27-2021 Urea nitrogen [Mass/Vol] 20 mg/dL 7-18 [facility] Work Phone: Thin prep Papanicolaou smear with manual screeningon 08-27-2021 Thin prep Papanicolaou smear with manual screening 16 U/L 15-37 [facility] Work Phone: Thin prep Papanicolaou smear with manual screening 5 5-15 [facility] Work Phone: Thin prep Papanicolaou smear with manual screening 11.7 mg/L NO RANGE EST. [facility] Work Phone: Urine creatinine measurement (mass/volume)on 08-27-2021 Creatinine (U) [Mass/Vol] 54.80 mg/dL NO RANGE EST. [facility] Work Phone: Whole blood hemoglobin A1c/t otal hemoglobin ratio (mass fraction)on 08-27-2021 HbA1c (Bld) [Mass fraction] 7.4 % 3.8-5.6 [facility] Work Phone: Comment on above: Normal < 5.7 % Predi abetic 5.7 - 6.4 % Diabetic >or= 6.5 % Please note range changes. Vital Signs Date Time Vital Sign Value Performing Clinician Facility 10-28-2024 09:05-0400 Body height 160.[address] Scott Steele MD Work Phone: [facility] 10-28-2024 09:04-0400 Body mass index (BMI) [Ratio] 31.1 kg/m2 Dr. Scott Steele MD Work Phone: [facility] 10-28-2024 09:04-0400 Body temperature 98.7 [degF] Dr. Scott Steele MD Work Phone: [facility] 10-28-2024 09:04-0400 Body weight 79.[address] Scott Steele MD Work Phone: [facility] 10-28-2024 09:04-0400 Diastolic blood pressure 74 mm[Hg] Dr. Scott Steele MD Work Phone: [facility] 10-28-2024 09:04-0400 Heart rate 73 /min Dr. Scott Steele MD Work Phone: [facility] 10-28-2024 09:04-0400 Respiratory rate 18 /min Dr. Scott Steele MD Work Phone: [facility] 10-28-2024 09:04-0400 SaO2% (BldA) [Mass fraction] 98 % Dr. Scott Steele MD Work Phone: [facility] 10-28-2024 09:04-0400 Systolic blood pressure 135 mm[Hg] Dr. Scott Steele MD Work Phone: [facility] 09-04-2024 11:50-0400 Body temperature 99.6 [degF] Dr. Scott Steele MD Work Phone: [facility] 09-04-2024 11:50-0400 Diastolic blood pressure 61 mm[Hg] Dr. Scott Steele MD Work Phone: [facility] 09-04-2024 11:50-0400 Heart rate 60 /min Dr. Scott Steele MD Work Phone: [facility] 09-04-2024 11:50-0400 Respiratory rate 16 /min Dr. Scott Steele MD Work Phone: [facility] 09-04-2024 11:50-0400 SaO2% (BldA) [Mass fraction] 97 % Dr. Scott Steele MD Work Phone: [facility] 09-04-2024 11:50-0400 Systolic blood pressure 132 mm[Hg] Dr. Scott Steele MD Work Phone: [facility] 09-04-2024 09:30-0400 Body height 160.[address] Scott Steele MD Work Phone: [facility] 09-04-2024 09:30-0400 Body mass index (BMI) [Ratio] 29.2 kg/m2 Dr. Scott Steele MD Work Phone: [facility] 09-04-2024 09:30-0400 Body weight [address] Scott Steele MD Work Phone: [facility] 04-05-2024 10:06-0500 Body height 157.5 cm Juan Ramon Purcell MD Work Phone: [facility] 04-05-2024 10:06-0500 Body mass index (BMI) [Ratio] 27.98 kg/m2 Juan Ramon Purcell MD Work Phone: [facility] 04-05-2024 10:06-0500 Body temperature 97.39 [degF] Juan Ramon Purcell MD Work Phone: [facility] 04-05-2024 10:06-0500 Body weight 69.4 kg Juan Ramon Purcell MD Work Phone: [facility] 04-05-2024 10:06-0500 Diastolic blood pressure 86 mm[Hg] Juan Ramon Purcell MD Work Phone: [facility] 04-05-2024 10:06-0500 Heart rate 82 /min Juan Ramon Purcell MD Work Phone: [facility] 04-05-2024 10:06-0500 SaO2% (BldA) [Mass fraction] 99 % Juan Ramon Purcell MD Work Phone: [facility] 04-05-2024 10:050 Systolic blood pressure 133 mm[Hg] Juan Ramon Purcell MD Work Phone: [facility] Encounters Encounter Date Encounter Type Care Provider Facility Start: 11-12-2024 ambulatory [facility] Facility:[facility] Start: 11-06-2024 End: 11-06-[address] Scott Steele MD Work Phone: [facility] Work Phone: Start: 11-06-2024 End: 11-06-[address] Kong Vieira MD -Laboratory Specimen Work Phone: Start: 11-06-2024 End: 11-06-2024 ambulatory [facility] Facility:[facility] Start: 10-28-[address] Kong Vieira MD -[facility] Start: 10-28-2024 ambulatory [facility] Facility:[facility] Start: 10-28-2024 End: 10-28-[address] Kong Vieira MD -[facility] Work Phone: Start: 10-28-2024 End: 10-28-[address] Scott Steele MD Work Phone: [facility] Work Phone: Start: 10-25-2024 End: 10-25-[address] Scott Steele MD Work Phone: [facility] Work Phone: Start: 10-25-2024 End: 10-25-[address] Scott Steele MD -[facility] [place] Work Phone: Start: 10-25-2024 End: 10-25-2024 ambulatory Scott Steele Facility:[facility] Start: 10-17-2024 Non-patient / Non-visit Theersa Serna [facility] Work Phone: Start: 10-17-2024 ambulatory Theresa Serna Facility :[facility] Start: 10-09-2024 End: 10-09-[address] Scott Steele MD Work Phone: [facility] Work Phone: Start: 10-09-2024 End: 10-09-[address] Scott Steele MD -Laboratory [facility] Start: 10-09-2024 End: 10-09-2024 ambulatory Scott Steele Facility:[facility] Start: 10-04-2024 End: 10-04-2024 ambulatory JUAN RAMON PURCELL Facility:[facility] Start: 09-04-2024 ambulatory Scott Steele Facilit y:[facility] Start: 09-04-2024 Non-patient / Non-visit Karri Banegas DO [facility] Start: 09-04-2024 End: 09-04-2024 Admission to same day surgery center Karri Banegas DO Endoscopy Work Phone: Start: 09-04-2024 End: 09-04-[address] Scott Steele MD Work Phone: [facility] Work Phone: Start: 06-28-2024 End: 06-28-2024 Patient encounter procedure Karri Banegas DO [facility] Work Phone: Start: 06-28-2024 End: 06-28-2024 ambulatory Scott Steele Facility:[facility] Start: 05-07-2024 End: 05-08-2024 ambulatory Juan Ramon Purcell MD Work Phone: Hematology/Oncology Comment on above: Blood tests Start: 04-30-2024 End: 04-30-2024 ambulatory Scott Steele Facility:[facility] Start: 04-05-2024 End: 04-05-2024 ambulatory Juan Ramon Purcell MD Work Phone: Hematology/Oncology Comment on above: Monoclonal gammopath y (Primary Dx) Start: 04-05-2024 End: 04-05-2024 Patient encounter procedure Juan Ramon Purcell MD Work Phone: Hematology/Oncology Start: 03-12-2024 End: 03-12-2024 ambulatory Scott Laina Facility:[facility] Start: 12-13-2023 End: 12-13-2023 [facility] Start: 08-23-2023 End: 08-23-2023 ambulatory [facility] Work Phone: Start: 08-23-2023 End: 08-23-2023 Patient encounter procedure [facility] Start: 06-13-2023 End: 06-13-2023 ambulatory [facility] Work Phone: Start: 06-13-2023 End: 06-13-2023 Patient encounter procedure [facility] Work Phone: Start: 04-21-2023 End: 04-21-2023 ambulatory [facility] Work Phone: Start: 04-21-2023 End: 04-21-2023 Patient encounter procedure [facility] Start: 03-21-2023 End: 03-21-2023 Patient encounter procedure [facility] Start: 12-16-2022 End: 12-16-2022 ambulatory [facility] Work Phone: Start: 12-16-2022 End: 12-16-2022 Patient encounter procedure [facility] Start: 09-21-2022 End: 09-21-2022 ambulatory [facility] Work Phone: Start: 09-21-2022 End: 09-21-2022 Patient encounter procedure [facility] Start: 09-15-2022 End: 09-15-2022 ambulatory [facility] Work Phone: Start: 09-15-2022 End: 09-15-2022 Patient encounter procedure [facility] Start: 07-28-2022 End: 07-28-2022 ambulatory [facility] Work Phone: Start: 07-28-2022 End: 07-28-2022 Patient encounter procedure [facility] Start: 06-20-2022 End: 06-20-2022 ambulatory [facility] Work Phone: Start: 06-20-2022 End: 06-20-2022 Patient encounter procedure [facility] Start: 05-17-2022 End: 05-17-2022 ambulatory [facility] Work Phone: Start: 05-17-2022 End: 05-17-2022 Patient encounter procedure [facility] Start: 03-15-2022 End: 03-15-2022 ambulatory [facility] Work Phone: Start: 03-15-2022 End: 03-15-2022 Patient encounter procedure [facility] Start: 03-09-2022 End: 03-09-2022 ambulatory [facility] Work Phone: Start: 03-09-2022 End: 03-09-2022 Patient encounter procedure [facility] Start: 01-19-2022 End: 01-19-2022 ambulatory [facility] Work Phone: Start: 01-19-2022 End: 01-19-2022 Patient encounter procedure [facility] Start: 11-30-2021 End: 11-30-2021 Patient encounter procedure [facility] Start: 09-09-2021 End: 09-09-2021 Patient encounter procedure [facility] Start: 08-27-2021 End: 08-27-2021 Patient encounter procedure [facility] Start: 07-22-2021 End: 07-22-2021 Patient encounter procedure [facility] Start: 05-27-2021 End: 05-27-2021 Patient encounter procedure [facility] Start: 07-27-2017 Patient encounter status Juan Ramon Purcell MD Work Phone: [facility] Start: 01-06-2014 End: 06-08-2016 Ophthalmic examination and evaluation Juan Ramon Purcell MD Work Phone: [facility] Procedures Date Procedure Procedure Detail Performing Clinician Start: 11-06-2024 Measurement of occul t blood in stool specimen using immunoassay Dr. Scott Steele MD Work Phone: Start: 10-28-2024 Albumin/Globulin ratio Dr. Scott Steele MD Work Phone: Start: 10-28-2024 Endomysial antibody IgA level Dr. Scott Steele MD Work Phone: Start: 10-28-2024 Gliadin antibody, Ig A measurement Dr. Scott Steele MD Work Phone: Comment on above: Negative 0 - 19 Weak Positive 20 - 30 Moderate to Strong Positive >30 Start: 10-28-2024 Gliadin antibody, Ig G measurement Dr. Scott Steele MD Work Phone: Comment on above: Negative 0 - 19 Weak Positive 20 - 30 Moderate to Strong Positive >30 Start: 10-28-[address]24 Imm[address] reticulocyt e fraction Dr. Scott Steele MD Work Phone: Start: 10-28-[address] measurement Dr[address] Scott Steele MD Work Phone: Start: 10-28-[address] Scott mcginnis MD Work Phone: Comment on above: Performed at: [address] [id number] Director: Han Das PhD, Phone: [phone] Start: 10-28-2024 Serum inorganic phos phate measurement Dr. Scott Steele MD Work Phone: Start: 10-28-2024 Total iron binding capacity measurement Dr. Scott Steele MD Work Phone: Start: 10-28-2024 Urine lambda light c victor manuel measurement Dr. Scott Steele MD Work Phone: Start: 10-25-2024 Plain x-ray of pelvi s and lower extremity Dr. Scott Steele MD Work Phone: Start: 10-25-2024 X-ray of lumbar spin e, two or three views Dr. Scott Steele MD Work Phone: Start: 10-09-2024 Total iron binding capacity measurement Dr. Scott Steele MD Work Phone: Start: 09-04-[address] Scott mcginnis MD Work Phone: Start: 06-13-2023 Dual energy X-ray absorptiometry Start: 06-13-2023 Screening mammography Start: 01-19-2022 Screening mammography Start: 09-09-2021 US scan of thyroid Start: 02-24-2014 Colonoscopy Juan Ramon rivera MD Work Phone: H/O: section History of C-sectio n H/O: hysterectomy History of hysterectomy Plan of Treatment Date Care Activity Detail Author Start: 11-05-2029 Urine microalbumin profile DTaP,Tdap,Td Vaccine (3 - Td or Tdap) [facility] Start: 10-28-2024 C reactive protein [Mass/volume] in Serum or Plasma [facility] Start: 10-28-2024 CBC W Auto Different ial panel - Blood [facility] Start: 10-28-2024 Cobalamin (Vitamin B 12) [Mass/volume] in Serum or Plasma [facility] Start: 10-28-2024 Comprehensive metabo lic 2000 panel - Serum or Plasma [facility] Start: 10-28-2024 Erythrocyte sediment ation rate [facility] Start: 10-28-2024 Ferritin [Mass/volum e] in Serum or Plasma [facility] Start: 10-28-2024 End: 10-28-2024 Gamma glutamyl transferase measurement [facility] Start: 10-28-2024 Immunoglobulin measurement [facility] Start: 10-28-2024 Iron and Iron bindin g capacity panel - Serum or Plasma [facility] Start: 10-28-2024 End: 10-28-2024 Laboratory test [facility] Start: 10-28-2024 Lactate dehydrogenas e measurement [facility] Start: 10-28-2024 Magnesium measurement [facility] Start: 10-28-2024 Procedure [facility] Start: 10-28-2024 Reticulocyte count [facility] Start: 10-28-2024 End: 10-28-2024 Serum immunofixation [facility] Start: 10-28-2024 Serum inorganic phos phate measurement [facility] Start: 10-28-2024 Urate [Mass/volume] in Serum or Plasma [facility] Start: 10-28-2024 [facility] Start: 09-04-2024 Colonoscopy flx dx w/collj spec when pfrmd DIAGNOSTIC COLONOSCOPY [facility] Start: 09-04-2024 Patient discharge [facility] Start: 04-05-2024 End: 07-05-2024 PROTEIN ELECT RND UR W/INTERP [facility] Comment on above: Expected: 04/05/2024 , Expires: 07/05/2024 Start: 02-25-2024 Screening for malign ant neoplasm of colon [facility] Start: 05-22-2023 Advance Directive Discussion Advance Directive Discussion [facility] Start: 2022 Screening for osteoporosis Bone Density Screening [facility] Start: 08-03-2019 Hepatitis B screening Urine Al bumin:Creatinine Ratio [facility] Start: 05-31-2019 Diabetic foot examination Diabetic F oot Exam [facility] Start: 05-17-2019 Glaucoma screening Dilated Retinal E xam [facility] Start: 02-02-2019 Hemoglobin A1c measurement HbA1C [facility] Start: 01-29-2019 Hepatitis B surface antibody level LDL Cholesterol [facility] Start: 08-22-2018 Screening for malign ant neoplasm of breast Mammogram Screening [facility] Start: 08-21-2018 Screening for malign ant neoplasm of colon Fecal Occult Blood [facility] Start: 2002 Screening for malign ant neoplasm of colon [facility] Start: 1975 Annual PCP Team Behavioral Health Worker bella Disease Visit Annual PCP Team Chronic Disease Visit [facility] Start: 1975 Anxiety Screening Anxiety Screening [facility] Start: 1975 BP Controlled (<130/80) BP Controlle d (<130/80) [facility] Start: 1975 Depression Screening Depression Scre ening [facility] Alanine aminotransfe rase [Enzymatic activity/volume] in Serum or Plasma [facility] Albumin [Mass/volume ] in Serum or Plasma [facility] Albumin [Moles/volum e] in Serum or Plasma [facility] Albumin/Globulin ratio [facility] Alkaline phosphatase [Enzymatic activity/volume] in Serum or Plasma [facility] Anion gap in Serum o r Plasma [facility] End: 04-05-2025 Basic metabolic 2000 panel - Serum or Plasma BASIC METABOLIC PANEL Lab Routine Monoclonal gammopathy Every 6 months for 2 Occurrences starting 04/05/2024 until 04/05/2025, 1 completed [facility] Comment on above: Every 6 months for 2 Occurrences starting 04/05/2024 until 04/05/2025, 1 completed Bilirubin, total measurement [facility] BUN/Creatinine ratio [facility] Calcium [Mass/volume ] in Serum or Plasma [facility] Carbon dioxide, tota l [Moles/volume] in Central venous blood [facility] End: 04-05-2025 CBC W Auto Differential panel - Blood COMPLETE BLOOD COUNT AND DIFFERENTIAL Lab Routine Monoclonal gammopathy Every 6 months for 2 Occurrences starting 04/05/2024 until 04/05/2025, 1 completed [facility] Work Phone: Comment on above: Every 6 months for 2 Occurrences starting 04/05/2024 until 04/05/2025, 1 completed Creatinine [Mass/vol ume] in Serum or Plasma [facility] CT Abdomen and Pelvi s W contrast IV [facility] CT Neck W contrast IV [facility] Electrophoresis: [id number] [facility] Electrophoresis: jaime ma globulin [facility] Erythrocyte mean corpuscular volume determination [facility] Folate [Moles/volume ] in Serum or Plasma [facility] Gliadin peptide IgA Ab [Units/volume] in Serum [facility] Gliadin peptide IgG Ab [Units/volume] in Serum [facility] Globulin measurement [facility] Glucose [Mass/volume ] in Serum or Plasma [facility] Hematocrit [Volume Fraction] of Blood [facility] Hemoglobin [Mass/vol ume] in Blood [facility] Hepatitis B virus co re Ab [Presence] in Serum [facility] Work Phone: IgA [Mass/volume] in Serum or Plasma [facility] IgG [Mass/volume] in Serum or Plasma [facility] IgM [Mass/volume] in Serum or Plasma [facility] In-vitro immunologic test [facility] Work Phone: Iron [Mass/mass] in Unspecified specimen [facility] Iron saturation [Mas s Fraction] in Serum or Plasma [facility] End: 04-05-2025 KAPPA/LA,FREE,SER KAPPA/LA,FREE,SER Lab Routine Monoclonal gammopathy Every 6 months for 2 Occurrences starting 04/05/2024 until 04/05/2025 [facility] Comment on above: Every 6 months for 2 Occurrences starting 04/05/2024 until 04/05/2025 Decordova/lambda light c victor manuel ratio [facility] Laboratory data interpretation [facility] Lambda light chains. free [Mass/volume] in Serum or Plasma [facility] Leukocytes [#/volume ] in Blood [facility] Mean corpuscular hemoglobin concentration determination [facility] Mean corpuscular hemoglobin determination [facility] Measurement of immunoglobulin A in serum specimen [facility] Measurement of occul t blood in stool specimen using immunoassay [facility] Measurement of renal function [facility] End: 04-05-2025 MONOCLONAL PROTEIN, SERUM (BLOOD) MONOCLONAL PROTEIN, SERUM (BLOOD) Lab Routine Monoclonal gammopathy Every 6 months for 2 Occurrences starting 04/05/2024 until 04/05/2025 [facility] Comment on above: Every 6 months for 2 Occurrences starting 04/05/2024 until 04/05/2025 MONOCLONAL PROTEIN, SERUM (BLOOD) MONOCLONAL PROTEIN, SERUM (BLOOD) Lab Routine Monoclonal gammopathy 04/05/2024 10:52 AM EST [facility] Mycobacterium tuberculosis tuberculin stimulated gamma interferon [Presence] in Blood [facility] Work Phone: Neutrophil count [facility] Neutrophil percent differential count [facility] Patient referral [facility] Work Phone: Platelets [#/volume] in Blood [facility] Potassium measurement [facility] Protein electrophore sis panel - Serum or Plasma [facility] End: 04-05-2025 PROTEIN ELECTROPHORESIS SERUM W/INTERP PROTEIN ELECTROPHORESIS SERUM W/INTERP Lab Routine Monoclonal gammopathy Every 6 months for 2 Occurrences starting 04/05/2024 until 04/05/2025 [facility] Comment on above: Every 6 months for 2 Occurrences starting 04/05/2024 until 04/05/2025 PROTEIN ELECTROPHORE SIS SERUM W/INTERP PROTEIN ELECTROPHORESIS SERUM W/INTERP Lab Routine Monoclonal gammopathy 04/05/2024 10:52 AM EST [facility] Red blood cell count [facility] Red cell distributio n width determination [facility] Serum chloride measurement [facility] Sodium measurement [facility] Tissue transglutamin ase IgA Ab [Units/volume] in Serum [facility] Total iron binding capacity measurement [facility] Total protein measurement [facility] Urea nitrogen [Mass/volume] in Serum or Plasma [facility] Urine kappa light ch ain measurement [facility] XR Bones Survey Views [facility] Immunizations Immunization Date Immunization Notes Care Provider Fa [facility] 03-14-2018 influenza, seasonal, injectable Juan Ramon Purcell MD Work Phone: [facility] 01-18-2017 influenza, injectabl e, quadrivalent, preservative free Juan Ramon Purcell MD Work Phone: [facility] 04-19-2016 influenza, injectabl e, quadrivalent, contains preservative Juan Ramon Purcell MD Work Phone: [facility] 07-22-2015 pneumococcal polysaccharide vaccine, 23 valent Juan Ramon Purcell MD Work Phone: [facility] Work Phone: 01-08-2015 tetanus toxoid, redu jose manuel diphtheria toxoid, and acellular pertussis vaccine, adsorbed Juan Ramon Purcell MD Work Phone: [facility] 05-09-2014 influenza, seasonal, injectable Juan Ramon Purcell MD Work Phone: [facility] 05-09-2014 pneumococcal conjuga te vaccine, 13 valgregg Purcell MD Work Phone: [facility] Payers Date Payer Category Payer Self-pay [id number] 2023 Private Health Insurance [facility] AARP SUPPLEMENT [id number] 2023-Present [phone] [address] [place] [address] Indemnity [id number] 2023 Unknown [id number] 2022 Medicare MEDICARE MEDICAR E A AND B [id number] 2022-Present [phone] [place] [address] Medicare [id number] 2022 Medicare [id number] Unknown [id number] Unknown [id number] Unknown [id number] Unknown [id number] Unknown [id number] Unknown [id number] Unknown [id number] Unknown [id number] Unknown [id number] Unknown [id number] Unknown [id number] Unknown [id number] Unknown [id number] Unknown [id number] Social History Date Type Detail Facility Start: 02-20-2019 End: 02-20-2019 Tobacco smoking status MDIS Unknown if ever smoked [facility] Start: 02-05-2019 Non-smoker [facility] Start: 1955 Sex Assigned At Female W [facility] Start: 02-12-2014 End: 08-29-2024 Tobacco smoking status MDIS Never smoked tobacco [facility] Start: 02-12-2014 Tobacco use and exposure Smokeless tobacco non-user [facility] Start: 04-05-2024 Alcoholic beverage intake Current non-drinker of alcohol (finding) [facility] Start: 02-02-2018 End: 04-05-2024 History of Social function [facility] Start: 02-02-2018 End: 04-05-2024 Tobacco use panel [facility] Adult Depression Screening Assessment 0 [facility] Start: 1955 Sex assigned at Not on file [facility] Start: 09-04-2024 Sex Female (finding) [facility] NEGATED: Highlighted row Not [facility] Goals Date Patient Goal Desired Activity /State Mental Status Date Assessment Result Facility 09-04-2024 Cognitive function Voice/Name [facility] Work Phone: Clinical Notes 04-05-2024 to 10-25-2024 Note Date & Type Note Facility 10-25-2024 Radiology Diagnostic study note [facility] Imaging Services [address] [place], [place] [id number] Hips B/L min 2 views w/ Pelvis MR#: [id number] Acct: [id number] Name: MARTHA FABAIN Rep #: [id number] : 1955 From: Fadia Zarate MD PCP: Dr. 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 COMPARISON: No relevant prior studies available. FINDINGS: BONES/JOINTS: Severe degenerative changes of the right hip joint with suggestion of avascular necrosis. No acute fracture. No dislocation. SOFT TISSUES: Soft tissue swelling. RAD/Hips B/L min 2 views w/ Pelvis IMPRESSION: Severe degenerative changes of the right hip joint with suggestion of avascular necrosis. Reading Location: [facility] CC: Dr. Scott Steele MD ~ Brush Maker Machine: Signed [facility] 10-25-2024 Radiology Diagnostic study note [facility] Imaging Services [address] [place] [id number] Lumbar Spine 2 or 3 Views MR#: [id number] Acct: [id number] Name: MARTHA FABIAN Rep #: [id number] : 1955 From: Fadia Zarate MD PCP: Dr. Scott Steele MD Status: ZACK Crowder [facility] Study:Lumbar Spine 2 or 3 Views Date of Exam: 10/25/24 Exam# [id number] Ordering Dr: Scott Steele MD EXAM: XR Lumbosacral Spine, 2 or 3 Views CLINICAL INDICATION: PAIN TECHNIQUE: Frontal and lateral views of the lumbar spine and sacrum. COMPARISON: No relevant prior studies available. FINDINGS: VERTEBRAE: Mild multilevel endplate degenerative changes of L1-S1. Mild facet arthropathy of L3-S1. No acute fracture. Normal alignment. SACRUM/COCCYX: Unremarkable as visualized. No acute fracture. DISC SPACES: No acute findings. No significant narrowing. SOFT TISSUES: Unremarkable. RAD/Lumbar Spine 2 or 3 Views IMPRESSION: Degenerative changes as above. Reading Location: [id number] CC: Dr. Scott Steele MD ~ Brush Maker Machine: Signed [facility] 09-04-2024 Consult note [facility] 09-04-2024 Consult note Note Date/Time September 04, 2024 9:19am [facility] Medical Records Department [address] [place] [address] Pre-Anesthesia Evaluation 09/04/24917 MR#: [id number] Acct: [id number] Name: MARTHA FABIAN Rep #:[id number] : 1955 69 From: Dennis Chandler MD PCP: Dr. Scott Steele MD Status:RE G SD Y Race: C Location: [place] [address] ASA Classification* ASA Classification ASA Classification: 2 Assessment & Plan Anesthesia* Anesthesia Assessment Anesthesia Assessment: Discussed sedation and/or anesthesia options, risks, benefits, and alternatives with patient/parents/legal guardian/POA. Questions invited. The patient/parents/legal guardian/POA seems to understand and agrees to proceedwith anesthesia plan. Reviewed the physical assessment, medical history, allergy history and patient home medications list prior to surgery/procedure/anesthetic and documented any changes. Performed airway and anesthesia risk assessments. Anesthesia Type Anesthesia Type: MAC Anesthesia Focused Assessment* Airway Assessment Mouth opens: >3 cm Mallampati Score: II Focused Labs Anesthesia Preop lab: CBC WBC 7.2 K/mm3 (4.4-11.0) 04/30/24 09:17 04/30/24 RBC 4.64 M/mm3 (4.2-5.4) 04/30/24 09:17 04/30/24 Hgb 13.2 g/dL (12.0-15.0) 04/30/24 09:17 04/30/24 Hct 41.1 % (37-47) 04/30/24 09:17 04/30/24 Plt Count 288 K/mm3 (150-450) 04/30/24 09:17 04/30/24 CHEMISTRY Potassium 4.2 mmol/L (3.5-5.1) 04/30/24 09:17 04/30/24 Sodium 140 mmol/L (136-145) 04/30/24 09:17 04/30/24 Magnesium 1.6 mg/dL (1.6-2.6) 09/20/18 10:44 09/20/18 Phosphorus 4.0 mg/dL (2.5-4.9) 04/21/23 09:02 04/21/23 BUN 17 mg/dL (7-18) 04/30/24 09:17 04/30/24 Creatinine 0.77 mg/dL (0.55-1.02) 04/30/24 09:17 04/30/24 Glucose 110 mg/dL (74-106) H 04/30/24 09:17 04/30/24 POC Glucose 117 mg/dL (70-110) H 02/06/19 08:06 02/06/19 TSH 2.14 uIU/mL (0.358-3.74) 02/04/21 09:07 COAG Pre-Assessment Diagnosis/Proposed Procedure Planned Operative Procedure(s): COLONOSCOPY Anesthesia History 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 When Was Last Pacemaker Check QUESTION #4 FULL TEXT: You/Your Family Experience fever (hyperthermia) with Anesthesia Last Oral Intake Last Oral intake: Last Oral Intake NPO since Meds taken in AM with sips of water? Meds patient instructed to take am of surgery PONV PONV - landscaper: PONV - landscaper Female Yes 08/29/24 14:31 HX of Motion Sickness No 08/29/24 14:31 HX of N/V After Surgery Yes 08/29/24 14:31 Non-Smoker Yes 08/29/24 14:31 Duration of Surgery greater No 08/29/24 14:31 than 60 minutes Number of Risk Factors 3 08/29/24 14:31 PONV Score Moderate Risk 08/29/24 14:31 Respiratory Assessment Respiratory Assessment - landscaper: Respiratory Tract Infection Hx - landscaper Hx Respiratory Tract Infection No 08/29/24 14:31 STOP Sleep Apnea STOP Sleep Apnea - landscaper: STOP Sleep Apnea - landscaper Hx Hypertension Yes 08/29/24 14:31 Hx Sleep Apnea Yes 08/29/24 14:31 CPAP No 08/29/24 14:31 BIPAP No 08/29/24 14:31 Do you snore loudly (louder than talking or can be heard Do you often feel tired/ fatigued/ sleepy during daytime? Has anyone observed you stop breathing during sleep? STOP Results Positive 08/29/24 14:31 QUESTION #5 FULL TEXT : Do you snore loudly (louder than talking or can be heard through closed doors)? 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 Specify any problems FACE SWELLED WITH 2ND UNIT ( 08/29/24 14:31 40+ YRS AGO) Hx of Preganancy in last 3 No 08/29/24 14:31 Months Nurse Filling Out Transfusion [facility] 08/29/24 14:31 & Questions: Date: 08/29/24 08/29/24 14:31 Time: 14:40 08/29/24 14:31 Patient unable to answer at this time (ie. confused, unrespo /Reproduction History /Reproductive History - landscaper: /Reproductive Hx- landscaper Hx Now No 08/29/24 14:31 Gestational Age (in weeks): EDC: Hx Hx Para Hx Section SAB PFSH Medical History Wears dentures Wears glasses Cancer Walker as ambulation aid Low iron High cholesterol Back pain History of hiatal hernia Gastric reflux Non-smoker CPAP (continuous positive airway pressure) dependence Sleep apnea History of edema History of echocardiogram Anemia Constipation Diarrhea Hemorrhoids Nausea Abdominal pain Anxiety Heart murmur Arthritis Rash Thyroid disease Fatigue Multinodular goiter Hypercholesterolemia Hypertension Diabetes Home Medications ?Medication ?Instructions ?Recorded ?Last Taken ?Type aspirin 81 mg tablet,delayed 81 mg PO DAILY 10/19/18 U nknown History release (Adult Low Dose Aspirin) lisinopril 5 mg tablet 5 mg PO QHS 10/19/18 Unknown History metformin 500 mg tablet 500 mg PO BID 10/19/18 Unkno wn History omeprazole 40 mg capsule,delayed 40 mg PO DAILY Unknown History release calcium carbonate 600 mg PO DAILY 02/05/19 Unk nown History cholecalciferol (vitamin D3) 50 2,000 unit PO DAILY Unknown History mcg (2,000 unit) capsule multivitamin with minerals 1 ea PO DAILY 02/05/19 Unkn own History dapagliflozin propanediol 10 mg 10 mg PO QAM 06/28/24 Unknown History tablet (Farxiga) rosuvastatin 20 mg tablet 20 mg PO QDAY 06/28/24 Unkno wn History verapamil 40 mg tablet 40 mg PO DAILY 06/28/24 Unkn own History Allergy/AdvReac Type Severity Reaction Status Date / Time No Known Allergies Allergy Verified 08/29/24 14:25 Family History Mother Cancer Hypertension Hypercholesterolemia CVA (cerebral vascular accident) Father Heart disease Hypercholesterolemia Hypertension Kidney disease Surgical History Hx of colonoscopy Hx of biopsy History of hysterectomy History of Social History Smoking Status: Never smoker alcohol intake: never substance use type: does not use caffeine: Yes what type of physical activity do you participate in: walking frequency: 1-2 times per week Review of Systems (Anesthesia) ROS Narrative System reviewed and no additional complaints, except as documented. 09/04/24 0919 <Electronically signed by Dennis Chandler MD > Date _ Dennis Chandler MD Cosigner Signature: Date CC: ~ Signed [facility] Work Phone: 1(418) 461-533004-16-2025 Evaluation note* Diagnosis Onset Date Resolution Status Admit Date Encounter for screening colonoscopy acute September 04, 2024 9:16am Macroglobulinemia acute October 8:11am Iron deficiency chronic October 28, 2024 8:11am [facility] Work Phone: 1(567) 415-688204-16-2025 Evaluation note* Diagnosis Onset Date Resolution Status Admit Date Encounter for screening colonoscopy acute September 04, 2024 9:16am Iron deficiency chronic October 28, 2024 8:11am Macroglobulinemia chronic October 8:11am [facility] Work Phone: 1(660) 793-817904-16-2025 Consult note [facility] Medical Records Department [address] [place] [address] Anesthesia Postop Eval I 09/04/24 1112 MR#: [id number] Acct: [id number] Name: MARTHA FABIAN Rep #:[id number] : 1955 69 From: Tab Interiano PCP: Dr. Scott Steele MD Status:RE G [facility] [place] Race: C Location: [place] [address] Anesthesia: Postop Eval I Current Vital Signs Temperature: 98.7 F Pulse Rate: 51 Blood Pressure: 111/62 Respiratory Rate: 16 Pulse Ox: 95 Oxygen Delivery Method: Room Air Assessment Airway patent: Yes Spontaneous unlabored respirations: Yes Mental status: Asleep nausea: No Vomiting: No Anesthesia Complication: No Fluid Hydration Crystalloid volume administer (ml): 30 Total IV fluid infused: 30 Progress Note Anesthesia document: Postop Eval 1 completed: Yes 09/04/24 1114 > Date _ Tab Interiano Sarina Signature: Date CC: ~ Signed [facility]04-16-2025 Procedure note [facility] Medical Records Department [address] [place] [address] Operative Report - CC Letter MR#: [id number] Acct: [id number] Name: MARTHA FABIAN Rep #:[id number] : 1955 69 From: Karri Banegas DO PCP: Dr. Scott Steele MD Status:RE G [facility] [place] 09/04/2024 Scott Steele [address] [place] [address] Re : Colonoscopy procedure for Martha Fabian Dear Dr. Steele This procedure was performed on Wednesday, September 04, 2024. My impressions and recommendations are as follows: Impressions : - Diverticulosis in the recto-sigmoid colon, in the sigmoid colon and in the descending colon. - Stool in the entire examined colon. - No specimens collected. Recommendations : - Discharge patient to home. - Resume previous diet. - Continue present medications. - Repeat colonoscopy because the bowel preparation was poor. My findings are described in the full procedure note, which is enclosed. If I can be of further assistance, please feel free to contact me at . Sincerely, Karri Banegas DO 09/04/2024 11:08:30 AM This report has been signed electronically. 09/04/24 1108 Date _ Karri Mattson Signature: Date (if indicated) CC: Dr. Scott Steele MD; Karri Banegas DO ~ Date Dictated: 09/04/24 1046 Date Transcribed: Brush Maker Machine: RF Signed [facility]04-16-2025 Procedure note [facility] Medical Records Department [address] [place] [address] Colonoscopy Report MR#: [id number] Acct: [id number] Name: MARTHA FABIAN Rep #:[id number] : 1955 69 From: Karri Banegas DO PCP: Dr. Scott Steele MD Status:[facility] Patient Name: Martha Fabian Procedure Date: 09/04/2024 10:46 AM Date of : 1955 Age: 69 Procedure: Colonoscopy Indications: Screening for colorectal malignant neoplasm Providers: Karri Banegas DO Medicines: Monitored Anesthesia Care Patient Profile: This is a 69 year old female. Refer to note in patient chart for documentation of history and physical. Last Colonoscopy: 5 years ago. Complications: No immediate complications. Procedure: Pre-Anesthesia Assessment: - Prior to the procedure, a History and Physical was performed, and patient medications and allergies were reviewed. The patient is competent. The risks and benefits of the procedure and the sedation options and risks were discussed with the patient. All questions were answered and informed consent was obtained. Patient identification and proposed procedure were verified by the physician in the pre-procedure area. Mental Status Examination: alert and oriented. Airway Examination: normal oropharyngeal airway and neck mobility. Respiratory Examination: clear to auscultation. CV Examination: normal. Prophylactic Antibiotics: The patient does not require prophylactic antibiotics. Prior Anticoagulants: The patient has taken no anticoagulant or antiplatelet agents except for NSAID medication. ASA Grade Assessment: II - A patient with mild systemic disease. After reviewing the risks and benefits, the patient was deemed in satisfactory condition to undergo the procedure. The anesthesia plan was to use monitored anesthesia care (MAC). Immediately prior to administration of medications, the patient was re-assessed for adequacy to receive sedatives. The heart rate, respiratory rate, oxygen saturations, blood pressure, adequacy of pulmonary ventilation, and response to care were monitored throughout the procedure. The physical status of the patient was re-assessed after the procedure. After I obtained informed consent, the scope was passed under direct vision. Throughout the procedure, the patient's blood pressure, pulse, and oxygen saturations were monitored continuously. The Colonoscope was introduced through the anus with the intention of advancing to the cecum. The scope was advanced to the splenic flexure before the procedure was aborted. Medications were given. The colonoscopy was performed without difficulty. The patient tolerated the procedure well. The quality of the bowel preparation was 90 percent obscured. The rectum, hepatic flexure and sigmoid colon were photographed. Scope In: 11:01:09 AM Scope Out: 11:02:57 AM Total Procedure Duration Time 0 hours 1 minute 48 seconds Findings: The perianal and digital rectal examinations were normal. Multiple small and large-mouthed diverticula were found in the recto-sigmoid colon, sigmoid colon and descending colon. Copious quantities of stool was found in the entire colon, precluding visualization. Impression: - Diverticulosis in the recto-sigmoid colon, in the sigmoid colon and in the descending colon. - Stool in the entire examined colon. - No specimens collected. Recommendation: - Discharge patient to home. - Resume previous diet. - Continue present medications. - Repeat colonoscopy because the bowel preparation was poor. Procedure Code(s): --- Professional --- 03969, 53, Colonoscopy, flexible; diagnostic, including collection of specimen(s) by brushing or washing, when performed (separate procedure) CPT copyright 2021 [employer]. All rights reserved. The codes documented in this report are preliminary and upon tank welder review may be revised to meet current compliance requirements. Karri Banegas DO 09/04/2024 11:08:30 AM This report has been signed electronically. Number of Addenda: 0 Note Initiated On: 09/04/2024 10:46 AM 09/04/24 1108 Date _ Karri Mattson Signature: Date (if indicated) CC: Dr. Scott Steele MD; Karri Banegas DO ~ Date Dictated: 09/04/24 1046 Date Transcribed: Brush Maker Machine: DOROTHEA Signed [facility]04-16-2025 History and physical note [facility] Medical Records Department [address] [place] [address] History & Physical Exam 09/04/24 1043 MR#: [id number] Acct: [id number] Name: MARTHA FABIAN Rep #:[id number] : 1955 69 From: Karri Banegas DO PCP: Dr. Scott Steele MD Status:[facility] Location: [place] [address] HPI - General General Date of Admission: 09/04/24 Date of Service: 09/04/24 Chief Complaint: Screening colonoscopy HPI Narrative MARTHA FABIAN, is a 68 F who presents today for screening colonoscopy. 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 This is caused her to have a macrocytic anemia. She arrives herefor a screening colonoscopy. *[facility] established 2.7.25 oscopy. She was explained alternatives, risk and benefits include not withstanding bleeding, infection, sepsis, perforation, need for emergent surgeryand . She will have an ASA of 3. 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 Low iron High cholesterol Back pain History of hiatal hernia Gastric reflux Non-smoker CPAP (continuous positive airway pressure) dependence Sleep apnea History of edema History of echocardiogram Anemia Constipation Diarrhea Hemorrhoids Nausea Abdominal pain Anxiety Heart murmur Arthritis Rash Thyroid disease Fatigue Multinodular goiter Hypercholesterolemia Hypertension Diabetes Home Medications ?Medication ?Instructions ?Recorded ?Last Taken ?Type aspirin 81 mg tablet,delayed 81 mg PO DAILY 10/19/18 0 09/01/24 History release (Adult Low Dose Aspirin) lisinopril 5 mg tablet 5 mg PO QHS 10/19/18 5 History metformin 500 mg tablet 500 mg PO BID 10/19/1809/03 History omeprazole 40 mg capsule,delayed 40 mg PO DAILY 09/04/24 History release calcium carbonate 600 mg PO DAILY 02/05/19 History cholecalciferol (vitamin D3) 50 2,000 unit PO DAILY 09/03/24 History mcg (2,000 unit) capsule multivitamin with minerals 1 ea PO DAILY 02/05/1908/20 History dapagliflozin propanediol 10 mg 10 mg PO QAM 06/28/24 08/31/24 History tablet (Farxiga) rosuvastatin 20 mg tablet 20 mg PO QDAY 06/28/2409/03 History verapamil 40 mg tablet 120 mg PO DAILY 06/28/24 History Allergy/AdvReac Type Severity Reaction Status Date / Time No Known Allergies Allergy Verified 09/04/24 09:27 Family History Mother Cancer Hypertension Hypercholesterolemia CVA (cerebral vascular accident) Father Heart disease Hypercholesterolemia Hypertension Kidney disease Surgical History Hx of colonoscopy Hx of biopsy History of hysterectomy History of Social History Smoking Status: Never smoker alcohol intake: never substance use type: does not use caffeine: Yes what type of physical activity do you participate in: walking frequency: 1-2 times per week ROS Constitutional Constitutional: Denies fatigue, fever(s), poor appetite, weight gain or weight loss Gastrointestinal Gastrointestinal: Denies belching, bloating, change in bowel habits, change in stool character, chewing difficulty, coffee ground emesis, constipation, cramping, diarrhea, dyspepsia, dysphagia, earlysatiety, excessive flatus, fecalincontinence, heartburn, hematemesis, hematochezia, hemorrhoids, loose stools, melena, nausea, odynophagia, rectal bleeding, tenesmus, vomiting or weight changes Vital Signs Vital Signs Vital Signs: 09/04/24 09:30 09/04/24 09:30 Temperature 97.4 F L Temperature Source Temporal Pulse Rate 72 Respiratory Rate 18 Respiratory Pattern Normal Blood Pressure 162/74 H Blood Pressure Mean 103 Blood Pressure Source Monitor Blood Pressure Position Semi-Fowlers Blood Pressure Location Left Arm Pulse Ox 99 Oxygen Delivery Method Room Air Weight Weight: 165 lb 5.547 oz Body Mass Index (BMI) 29.2 Physical Exam Const alert, oriented x3, no apparent distress and healthy appearing General Appearance: cooperative GI normal to inspection, nondistended, normoactive bowel sounds, soft to palpation,non-tender and non-distended Percussion: normal to percussion Rectal Exam: deferred Results Lab / Micro Data Labs: Laboratory Results - last 24 hr 09/04/24 09:31: POC Glucose 117 H Assessment & Plan Assessment/Plan (1) Encounter for screening colonoscopy: PLAN: Assessment and Plan Assessment and Plan (1) Encounter for screening colonoscopy: Status: Acute Plan: She will undergo screening colon. She was explained alternatives, risk and benefits include, study bleeding, infection, sepsis, perforation, need for emergent urgent . She will have an ASA of 3. 09/04/24 1045 Cosigner Signature (if applicable): CC: Dr. Scott Steele MD; Karri Banegas DO~ Signed [facility]04-16-2025 [facility] Medical Records Department [address] [place] [address] History Physical Exam 09/04/24 1043 MR#: [id number] Acct: [id number] Name: MARTHA FABIAN Rep #: [id number] : 1955 69 From: Karri Banegas DO PCP: Dr. Scott Steele MD Status:[facility] Location: [place] [address] HPI - General General Date of Admission: 09/04/24 Date of Service: 09/04/24 Chief Complaint: Screening colonoscopy HPI Narrative MARTHA FABIAN, is a 68 F who presents today for screening colonoscopy. 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 This is caused her to have a macrocytic anemia. She arrives here for a screening colonoscopy. *[facility] established 2.7.25 oscopy. She was explained alternatives, risk and benefits include not withstanding bleeding, infection, sepsis, perforation, need for emergent surgery and . She will have an ASA of 3. 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 Low iron High cholesterol Back pain History of hiatal hernia Gastric reflux Non-smoker CPAP (continuous positive airway pressure) dependence Sleep apnea History of edema History of echocardiogram Anemia Constipation Diarrhea Hemorrhoids Nausea Abdominal pain Anxiety Heart murmur Arthritis Rash Thyroid disease Fatigue Multinodular goiter Hypercholesterolemia Hypertension Diabetes Home Medications ???Medication ???Instructions ???Recorded ???Last Taken ???Type aspirin 81 mg tablet,delayed 81 mg PO DAILY 10/19/18 09/01/24 H istory release (Adult Low Dose Aspirin) lisinopril 5 mg tablet 5 mg PO QHS 10/19/18 09/03/24 Hist ory metformin 500 mg tablet 500 mg PO BID 10/19/18 09/03/24 Hi story omeprazole 40 mg capsule,delayed 40 mg PO DAILY 01/22/19 09/04/24 H istory release calcium carbonate 600 mg PO DAILY 02/05/19 09/03/24 History cholecalciferol (vitamin D3) 50 2,000 unit PO DAILY 02/05/1909/03 History mcg (2,000 unit) capsule multivitamin with minerals 1 ea PO DAILY 02/05/19 09/03/24 Hi story dapagliflozin propanediol 10 mg 10 mg PO QAM 06/28/24 08/31/24 His tory tablet (Farxiga) rosuvastatin 20 mg tablet 20 mg PO QDAY 06/28/24 09/03/24 Hi story verapamil 40 mg tablet 120 mg PO DAILY 06/28/24 09/04/24 History Allergy/AdvReac Type Severity Reaction Status Date / Time No Known Allergies Allergy Verified 09/04/24 09:27 Family History Mother Cancer Hypertension Hypercholesterolemia CVA (cerebral vascular accident) Father Heart disease Hypercholesterolemia Hypertension Kidney disease Surgical History Hx of colonoscopy Hx of biopsy History of hysterectomy History of Social History Smoking Status: Never smoker alcohol intake: never substance use type: does not use caffeine: Yes what type of physical activity do you participate in: walking frequency: 1-2 times per week ROS Constitutional Constitutional: Denies fatigue, fever(s), poor appetite, weight gain or weight loss Gastrointestinal Gastrointestinal: Denies belching, bloating, change in bowel habits, change in stool character, chewing difficulty, coffee ground emesis, constipation, cramping, diarrhea, dyspepsia, dysphagia, early satiety, excessive flatus, fecal incontinence, heartburn, hematemesis, hematochezia, hemorrhoids, loose stools, melena, nausea, odynophagia, rectal bleeding, tenesmus, vomiting or weight changes Vital Signs Vital Signs Vital Signs: 09/04/24 09:30 09/04/24 09:30 Temperature 97.4 F L Temperature Source Temporal Pulse Rate 72 Respiratory Rate 18 Respiratory Pattern Normal Blood Pressure 162/74 H Blood Pressure Mean 103 Blood Pressure Source Monitor Blood Pressure Position Semi-Fowlers Blood Pressure Location Left Arm Pulse Ox 99 Oxygen Delivery Method Room Air Weight Weight: 165 lb 5.547 oz Body Mass Index (BMI) 29.2 Physical Exam Const alert, oriented x3, no apparent distress and healthy appearing General Appearance: cooperative GI normal to inspection, nondistended, normoactive bowel sounds, soft to palpation, non-tender and non- distended Percussion: normal to percussion Rectal Exam: deferred Results Lab / Micro Data Labs: Laboratory Results - last 24 hr 09/04/24 09:31: POC Glucose 117 H Assessment Plan Assessment/Plan (1) Encounter for screening colonoscopy: PLAN: Assessment and Plan Assessment and Plan (1) Encounter for screening colonoscopy: Status: Acute Plan: She will undergo (more content not included)...[facility] 09-04-2024 Consult note [facility] Medical Records Department [address] [place] [address] Pre-Anesthesia Evaluation 09/04/24917 MR#: [id number] Acct: [id number] Name: MARTHA FABIAN Rep #:[id number] : 1955 69 From: Dennis Chandler MD PCP: Dr. Scott Steele MD Status:RE G [facility] Y Race: C Location: [place] [address] ASA Classification* ASA Classification ASA Classification: 2 Assessment & Plan Anesthesia* Anesthesia Assessment Anesthesia Assessment: Discussed sedation and/or anesthesia options, risks, benefits, and alternatives with patient/parents/legal guardian/POA. Questions invited. The patient/parents/legal guardian/POA seems to understand and agrees to proceedwith anesthesia plan. Reviewed the physical assessment, medical history, allergy history and patient home medications list prior to surgery/procedure/anesthetic and documented any changes. Performed airway and anesthesia risk assessments. Anesthesia Type Anesthesia Type: MAC Anesthesia Focused Assessment* Airway Assessment Mouth opens: >3 cm Mallampati Score: II Focused Labs Anesthesia Preop lab: CBC WBC 7.2 K/mm3 (4.4-11.0) 04/30/24 09:17 04/30/24 RBC 4.64 M/mm3 (4.2-5.4) 04/30/24 09:17 04/30/24 Hgb 13.2 g/dL (12.0-15.0) 04/30/24 09:17 04/30/24 Hct 41.1 % (37-47) 04/30/24 09:17 04/30/24 Plt Count 288 K/mm3 (150-450) 04/30/24 09:17 04/30/24 CHEMISTRY Potassium 4.2 mmol/L (3.5-5.1) 04/30/24 09:17 04/30/24 Sodium 140 mmol/L (136-145) 04/30/24 09:17 04/30/24 Magnesium 1.6 mg/dL (1.6-2.6) 09/20/18 10:44 09/20/18 Phosphorus 4.0 mg/dL (2.5-4.9) 04/21/23 09:02 04/21/23 BUN 17 mg/dL (7-18) 04/30/24 09:17 04/30/24 Creatinine 0.77 mg/dL (0.55-1.02) 04/30/24 09:17 04/30/24 Glucose 110 mg/dL (74-106) H 04/30/24 09:17 04/30/24 POC Glucose 117 mg/dL (70-110) H 02/06/19 08:06 02/06/19 TSH 2.14 uIU/mL (0.358-3.74) 02/04/21 09:07 COAG Pre-Assessment Diagnosis/Proposed Procedure Planned Operative Procedure(s): COLONOSCOPY Anesthesia History 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 When Was Last Pacemaker Check QUESTION #4 FULL TEXT: You/Your Family Experience fever (hyperthermia) with Anesthesia Last Oral Intake Last Oral intake: Last Oral Intake NPO since Meds taken in AM with sips of water? Meds patient instructed to take am of surgery PONV PONV - landscaper: PONV - landscaper Female Yes 08/29/24 14:31 HX of Motion Sickness No 08/29/24 14:31 HX of N/V After Surgery Yes 08/29/24 14:31 Non-Smoker Yes 08/29/24 14:31 Duration of Surgery greater No 08/29/24 14:31 than 60 minutes Number of Risk Factors 3 08/29/24 14:31 PONV Score Moderate Risk 08/29/24 14:31 Respiratory Assessment Respiratory Assessment - landscaper: Respiratory Tract Infection Hx - landscaper Hx Respiratory Tract Infection No 08/29/24 14:31 STOP Sleep Apnea STOP Sleep Apnea - landscaper: STOP Sleep Apnea - landscaper Hx Hypertension Yes 08/29/24 14:31 Hx Sleep Apnea Yes 08/29/24 14:31 CPAP No 08/29/24 14:31 BIPAP No 08/29/24 14:31 Do you snore loudly (louder than talking or can be heard Do you often feel tired/ fatigued/ sleepy during daytime? Has anyone observed you stop breathing during sleep? STOP Results Positive 08/29/24 14:31 QUESTION #5 FULL TEXT : Do you snore loudly (louder than talking or can be heard through closeddoors)? 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 Specify any problems FACE SWELLED WITH 2ND UNIT ( 08/29/24 14:31 40+ YRS AGO) Hx of Preganancy in last 3 No 08/29/24 14:31 Months Nurse Filling Out Transfusion [place] 08/29/24 14:31 & Questions: Date: 08/29/24 08/29/24 14:31 Time: 14:40 08/29/24 14:31 Patient unable to answer at this time (ie. confused, unrespo /Reproduction History /Reproductive History - landscaper: /Reproductive Hx- landscaper Hx Now No 08/29/24 14:31 Gestational Age (in weeks): EDC: Hx Hx Para Hx Section SAB PFSH Medical History Wears dentures Wears glasses Cancer Walker as ambulation aid Low iron High cholesterol Back pain History of hiatal hernia Gastric reflux Non-smoker CPAP (continuous positive airway pressure) dependence Sleep apnea History of edema History of echocardiogram Anemia Constipation Diarrhea Hemorrhoids Nausea Abdominal pain Anxiety Heart murmur Arthritis Rash Thyroid disease Fatigue Multinodular goiter Hypercholesterolemia Hypertension Diabetes Home Medications ?Medication ?Instructions ?Recorded ?Last Taken ?Type aspirin 81 mg tablet,delayed 81 mg PO DAILY 10/19/18 U nknown History release (Adult Low Dose Aspirin) lisinopril 5 mg tablet 5 mg PO QHS 10/19/18 Unknown History metformin 500 mg tablet 500 mg PO BID 10/19/18 Unkno wn History omeprazole 40 mg capsule,delayed 40 mg PO DAILY Unknown History release calcium carbonate 600 mg PO DAILY 02/05/19 Unk nown History cholecalciferol (vitamin D3) 50 2,000 unit PO DAILY Unknown History mcg (2,000 unit) capsule multivitamin with minerals 1 ea PO DAILY 02/05/19 Unkn own History dapagliflozin propanediol 10 mg 10 mg PO QAM 06/28/24 Unknown History tablet (Farxiga) rosuvastatin 20 mg tablet 20 mg PO QDAY 06/28/24 Unkno wn History verapamil 40 mg tablet 40 mg PO DAILY 06/28/24 Unkn own History Allergy/AdvReac Type Severity Reaction Status Date / Time No Known Allergies Allergy Verified 08/29/24 14:25 Family History Mother Cancer Hypertension Hypercholesterolemia CVA (cerebral vascular accident) Father Heart disease Hypercholesterolemia Hypertension Kidney disease Surgical History Hx of colonoscopy Hx of biopsy History of hysterectomy History of Social History Smoking Status: Never smoker alcohol intake: never substance use type: does not use caffeine: Yes what type of physical activity do you participate in: walking frequency: 1-2 times per week Review of Systems (Anesthesia) ROS Narrative System reviewed and no additional complaints, except as documented. 09/04/24918 > Date _ Dennis Chandler MD Cosign Signature: Date CC: ~ Signed [facility]02-08-2025 Consult note Author Tab Interiano [facility] Note Date/Time September 04, 2024 11: 14am [facility] Medical Records Department [address] [place] [address] Anesthesia Postop Eval I 09/04/24 1112 MR#: [id number] Acct: [id number] Name: MARTHA FABIAN Rep #:[id number] : 1955 69 From: Tab Interiano PCP: Dr. Scott Steele MD Status:RE G SDC Y Race: C Location: [place] [address] Anesthesia: Postop Eval I Current Vital Signs Temperature: 98.7 F Pulse Rate: 51 Blood Pressure: 111/62 Respiratory Rate: 16 Pulse Ox: 95 Oxygen Delivery Method: Room Air Assessment Airway patent: Yes Spontaneous unlabored respirations: Yes Mental status: Asleep nausea: No Vomiting: No Anesthesia Complication: No Fluid Hydration Crystalloid volume administer (ml): 30 Total IV fluid infused: 30 Progress Note Anesthesia document: Postop Eval 1 completed: Yes 09/04/24 111 <Electronically signed by Tab Interiano > Date _ Tab Cooleyigner Signature: Date CC: ~ Signed [facility] Work Phone: 1(790) 324-958802-07-2025 Evaluation note* Diagnosis Onset Date Resolution Status Admit Date Encounter for screening colonoscopy acute June 28 9:51am Encounter for screening colonoscopy acute September 04, 2024 9:16am [facility] Work Phone: 1(509) 437-402812-17-2024 Telephone encounter Note* Telephone Encounter - Roxi Gutierrez RN - 05/07/2024 3:51 PM EST Per brody Reyes in 6mo. Lucero Gutierrez RN [facility] Work Phone: 1(533) 774-663012-17-2024 Miscellaneous Notes* Telephone Encounter - Roxi Gutierrez RN - 05/07/2024 3:51 PM EST Per brody Reyes in 6mo. Lucero Gutierrez RN [facility] NoteHNO ID: [id number] Author: JUAN RAMON PURCELL MD Service: ? Author Type: Physician Type: Progress Notes Filed: 04/05/2024 10:53 Note Text: HISTORY OF PRESENT ILLNESS: Martha Fabian is a 68 year old female referred for evaluation of monoclonal gammopathy, IgM subtype. Test was ordered by dermatology, was seeing them for psoriasis. No fevers or sweats. We reviewed available lab results, discussed possible significance of monoclonal gammopathy. CLINICAL IMPRESSION: IgM monoclonal gammopathy RECOMMENDATION/PLAN: 1. Will do full lab work up, follow up by phone. Possible CT scans in near future. Written and verbal health teaching given to patient, patient verbalizes understanding and agrees with treatment plan. PAST MEDICAL HISTORY Diagnosis Date DM (diabetes mellitus), type 2 (HCC) 09/05/2013 GERD (gastroesophageal reflux disease) HTN (hypertension) 09/05/2013 Hyperlipemia 09/05/2013 Low iron Osteopenia Psoriasis 09/05/2013 Rosacea 09/05/2013 PAST SURGICAL HISTORY Procedure Laterality Date CATARACT EXTRACTION HX Bilateral COLONOSCOPY FLX DX W/COLLJ SPEC WHEN PFRMD 02/24/2014 repeat 10 yrs D+C x 3 FECAL OCCULT BLOOD TEST 08/22/2017 negative PAST SURGICAL HISTORY OF 1996 TAWANDA BSO PAST SURGICAL HISTORY OF C/S x 2 FAMILY HISTORY Problem Relation Age of Onset Hypertension Mother Lipids Mother Stroke Mother Lung Cancer Mother Alzheimer's Disease Father Coronary Artery Disease Father 60's Hypertension Father Kidney Disease Father Lipids Father Cancer Maternal Grandmother Colon Cancer Maternal Grandfather 50's Alzheimer's Disease Paternal Grandmother Kidney Disease Paternal Uncle Social History Tobacco Use Smoking status: Never Smokeless tobacco: Never Substance Use Topics Alcohol use: No Drug use: No ALLERGIES: ALLERGIES Allergen Reactions Jardiance [Empaglif* Other: See Comments Recurrent yeast infection CURRENT OUTPATIENT MEDICATIONS: rosuvastatin (CRESTOR) 20 mg tablet Take 20 mg by mouth once daily. cholecalciferol (VITAMIN D) 1,000 unit tab tablet Take two tablets by mouth once daily. calcium carbonate/vitamin D3 (CALCIUM + D ORAL) Take 1 tablet by mouth two times a day. clobetasol (TEMOVATE) 0.05 % ointment Apply 1 application to affected area two times a day as needed. omeprazole (PRILOSEC) 20 mg capsule Take 20 mg by mouth once daily. FARXIGA 10 mg tablet Take 10 mg by mouth once daily. ferrous sulfate (IRON) 325 mg (65 mg iron) tablet Take 325 mg by mouth two times a day. acetaminophen (TYLENOL EXTRA STRENGTH) 500 mg tablet Take 1,000 mg by mouth every 8 hours as needed. lisinopril (ZESTRIL, PRINIVIL) 20 mg tablet Take 1 tablet by mouth once daily. (Patient taking differently: Take 20 mg by mouth two times a day.) verapamil (CALAN, ISOPTIN) 120 mg tablet Take 1 tablet by mouth twice daily. metFORMIN (GLUCOPHAGE) 1,000 mg tablet Take 1 tablet by mouth twice daily with meals. multivitamin tablet Take 1 tablet by mouth once daily. Aspirin 81 mg tab Take 1 tablet by mouth once daily. Take with food. Lovastatin 40 mg tablet Take 1 tablet by mouth daily at bedtime. For cholesterol. diclofenac, EC, (VOLTAREN) 75 mg EC tablet Take 1 tablet by mouth twice daily. For pain/inflammation. Take with food. urea (CARMOL) 40 % crea Apply 1 application to affected area as needed. Cholecalciferol, Vitamin D3, 5,000 unit cap Take 1 capsule by mouth once daily. niacin sustained release (NIASPAN) 1,000 mg CR tablet Take 1 tablet by mouth twice daily. REVIEW OF SYSTEMS: GENERAL: No fever, night sweats, weight loss or malaise. All other reviewed and negative other than HPI. PHYSICAL EXAMINATION: VITAL SIGNS: BP 133/86 Pulse 82 Temp (Src) 97.4 (Temporal) Ht 5' 2 (1.58m) Wt 153 lb (69.4kg) SpO2 99% BMI 27.98 kg/(m2). GENERAL APPEARANCE: Well appearing, in no acute distress, alert and oriented x3, well-hydrated, well nourished. No palpable adenopathy or splenomegaly. I spent a total of 45 minutes on the date of the service which included preparing to see the patient, [id number] patient care, completing clinical documentation, obtaining and/or reviewing separately obtained history, performing a medically appropriate examination, counseling and educating the patient/family/caregiver, ordering medications, tests, or procedures, independently interpreting results (not separately reported), and communicating results to the patient/family/caregiver. Electronically Signed: Juan Ramon Purcell MD April 05, 2024 10:20 [facility]11-15-2024 History of Present illness Narrative* Juan Ramon Purcell MD - 04/05/2024 10:20 AM EST HISTORY OF PRESENT ILLNESS: Martha Fabian is a 68 year old female referred for evaluation of monoclonal gammopathy, IgM subtype. Test was ordered by dermatology, was seeing them for psoriasis. No fevers or sweats. We reviewed available lab results, discussed possible significance of monoclonal gammopathy. CLINICAL IMPRESSION: IgM monoclonal gammopathy RECOMMENDATION/PLAN: 1. Will do full lab work up, follow up by phone. Possible CT scans in near future. Written and verbal health teaching given to patient, patient verbalizes understanding and agrees with treatment plan. PAST MEDICAL HISTORY Diagnosis Date DM (diabetes mellitus), type 2 (HCC) 09/05/2013 GERD (gastroesophageal reflux disease) HTN (hypertension) 09/05/2013 Hyperlipemia 09/05/2013 Low iron Osteopenia Psoriasis 09/05/2013 Rosacea 09/05/2013 PAST SURGICAL HISTORY Procedure Laterality Date CATARACT EXTRACTION HX Bilateral COLONOSCOPY FLX DX W/COLLJ SPEC WHEN PFRMD 02/24/2014 repeat 10 yrs D+C x 3 FECAL OCCULT BLOOD TEST 08/22/2017 negative PAST SURGICAL HISTORY OF 1996 TAWANDA BSO PAST SURGICAL HISTORY OF C/S x 2 FAMILY HISTORY Problem Relation Age of Onset Hypertension Mother Lipids Mother Stroke Mother Lung Cancer Mother Alzheimer's Disease Father Coronary Artery Disease Father 60's Hypertension Father Kidney Disease Father Lipids Father Cancer Maternal Grandmother Colon Cancer Maternal Grandfather 50's Alzheimer's Disease Paternal Grandmother Kidney Disease Paternal Uncle Social History Tobacco Use Smoking status: Never Smokeless tobacco: Never Substance Use Topics Alcohol use: No Drug use: No ALLERGIES: ALLERGIES Allergen Reactions Jardiance [Empaglif* Other: See Comments Recurrent yeast infection CURRENT OUTPATIENT MEDICATIONS: rosuvastatin (CRESTOR) 20 mg tablet Take 20 mg by mouth once daily. cholecalciferol (VITAMIN D) 1,000 unit tab tablet Take two tablets by mouth once daily. calcium carbonate/vitamin D3 (CALCIUM + D ORAL) Take 1 tablet by mouth two times a day. clobetasol (TEMOVATE) 0.05 % ointment Apply 1 application to affected area two times a day as needed. omeprazole (PRILOSEC) 20 mg capsule Take 20 mg by mouth once daily. FARXIGA 10 mg tablet Take 10 mg by mouth once daily. ferrous sulfate (IRON) 325 mg (65 mg iron) tablet Take 325 mg by mouth two times a day. acetaminophen (TYLENOL EXTRA STRENGTH) 500 mg tablet Take 1,000 mg by mouth every 8 hours as needed. lisinopril (ZESTRIL, PRINIVIL) 20 mg tablet Take 1 tablet by mouth once daily. (Patient taking differently: Take 20 mg by mouth two times a day.) verapamil (CALAN, ISOPTIN) 120 mg tablet Take 1 tablet by mouth twice daily. metFORMIN (GLUCOPHAGE) 1,000 mg tablet Take 1 tablet by mouth twice daily with meals. multivitamin tablet Take 1 tablet by mouth once daily. Aspirin 81 mg tab Take 1 tablet by mouth once daily. Take with food. Lovastatin 40 mg tablet Take 1 tablet by mouth daily at bedtime. For cholesterol. diclofenac, EC, (VOLTAREN) 75 mg EC tablet Take 1 tablet by mouth twice daily. For pain/inflammation. Take with food. urea (CARMOL) 40 % crea Apply 1 application to affected area as needed. Cholecalciferol, Vitamin D3, 5,000 unit cap Take 1 capsule by mouth once daily. niacin sustained release (NIASPAN) 1,000 mg CR tablet Take 1 tablet by mouth twice daily. REVIEW OF SYSTEMS: GENERAL: No fever, night sweats, weight loss or malaise. All other reviewed and negative other than HPI. PHYSICAL EXAMINATION: VITAL SIGNS: BP 133/86 Pulse 82 Temp (Src) 97.4 (Temporal) Ht 5' 2 (1.58m) Wt 153 lb (69.4kg) SpO2 99% BMI 27.98 kg/(m^2). GENERAL APPEARANCE: Well appearing, in no acute distress, alert and oriented x3, well-hydrated, well nourished. No palpable adenopathy or splenomegaly. I spent a total of 45 minutes on the date of the service which included preparing to see the patient, [id number] patient care, completing clinical documentation, obtaining and/or reviewing separately obtained history, performing a medically appropriate examination, counseling and educating the pat ient/family/caregiver, ordering medications, tests, or procedures, independently interpreting results (not separately reported), and communicating results to the patient/family/caregiver. Electronically Signed: Juan Ramon Purcell MD April 05, 2024 10:20 AM [facility] Author Dennis Chandler [facility] Note Date/Time September 04, 2024 12: 16pm [facility] Medical Records Department [address] [place] [address] Anesthesia Postop Eval II 09/04/24 1126 MR#: [id number] Acct: [id number] Name: MARTHA FABIAN Rep #:[id number] : 1955 69 From: Dennis Chandler MD PCP: Dr. Scott Steele MD Status:RE G [facility] [place] Race: C Location: [place] [address] Anesthesia Postop Eval I Sum Postop Eval Completion status Anesthesia document: Postop Eval 1 completed: Yes Anesthesia Postop Eval I Summary Anesthesia Postop Eval I Summary: Anesthesia Postop Eval I: Assessment Summary Airway patent Yes 09/04/24 11:14 [email or web address] Spontaneous unlabored Yes 09/04/24 11:14 [email or web address] respirations Mental status Asleep 09/04/24 11:14 [email or web address] nausea No 09/04/24 11:14 [email or web address] Vomiting No 09/04/24 11:14 [email or web address] Anesthesia Postop Eval I: Fluid Summary Crystalloid volume administer 30 09/04/24 11:14 [email or web address] (ml) Colloids volume administered ( ml) Blood Product volume administered (ml) Total IV fluid infused 30 09/04/24 11:14 [email or web address] Anesthesia Postop Eval I: Summary Notes Anesthesia Complication No 09/04/24 11:14 [email or web address] Anesthesia Complication Comment: Post-operative progress note Anesthesia: Postop Eval II Evaluation Mental status: Awake Pain Level: 0 nausea: No Vomiting: No 09/04/24 1126 <Electronically signed by Dennis Chandler MD > Date _ Dennis Branch Signature: Date CC: ~ Signed [facility] Work Phone: Evaluation noteNo assessment information available [facility] Work Phone: Evaluation note* Diagnosis Monoclonal gammopathy- Primary Monoclonal paraproteinemia documented in this encounter [facility] Author Karri Banegas [facility] Note Date/Time September 04, 2024 10: 45am [facility] Medical Records Department [address] [place] [address] History & Physical Exam 09/04/24 1043 MR#: [id number] Acct: [id number] Name: MARTHA FABIAN Rep #:[id number] : 1955 69 From: Karri Banegas DO PCP: Dr. Scott Steele MD Status:[facility] Location: [place] [address] HPI - General General Date of Admission: 09/04/24 Date of Service: 09/04/24 Chief Complaint: Screening colonoscopy HPI Narrative MARTHA FABIAN, is a 68 F who presents today for screening colonoscopy. 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 This is caused her to have a macrocytic anemia. She arrives here for a screening colonoscopy. *BGI established 2.7.25 oscopy. She was explained alternatives, risk and benefits include not withstanding bleeding, infection, sepsis, perforation, need for emergent surgeryand . She will have an ASA of 3. 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 Low iron High cholesterol Back pain History of hiatal hernia Gastric reflux Non-smoker CPAP (continuous positive airway pressure) dependence Sleep apnea History of edema History of echocardiogram Anemia Constipation Diarrhea Hemorrhoids Nausea Abdominal pain Anxiety Heart murmur Arthritis Rash Thyroid disease Fatigue Multinodular goiter Hypercholesterolemia Hypertension Diabetes Home Medications ?Medication ?Instructions ?Recorded ?Last Taken ?Type aspirin 81 mg tablet,delayed 81 mg PO DAILY 10/19/18 0 09/01/24 History release (Adult Low Dose Aspirin) lisinopril 5 mg tablet 5 mg PO QHS 10/19/18 5 History metformin 500 mg tablet 500 mg PO BID 10/19/1809/03 History omeprazole 40 mg capsule,delayed 40 mg PO DAILY 09/04/24 History release calcium carbonate 600 mg PO DAILY 02/05/19 History cholecalciferol (vitamin D3) 50 2,000 unit PO DAILY 09/03/24 History mcg (2,000 unit) capsule multivitamin with minerals 1 ea PO DAILY 02/05/1908/20 History dapagliflozin propanediol 10 mg 10 mg PO QAM 06/28/24 08/31/24 History tablet (Farxiga) rosuvastatin 20 mg tablet 20 mg PO QDAY 06/28/2409/03 History verapamil 40 mg tablet 120 mg PO DAILY 06/28/24 History Allergy/AdvReac Type Severity Reaction Status Date / Time No Known Allergies Allergy Verified 09/04/24 09:27 Family History Mother Cancer Hypertension Hypercholesterolemia CVA (cerebral vascular accident) Father Heart disease Hypercholesterolemia Hypertension Kidney disease Surgical History Hx of colonoscopy Hx of biopsy History of hysterectomy History of Social History Smoking Status: Never smoker alcohol intake: never substance use type: does not use caffeine: Yes what type of physical activity do you participate in: walking frequency: 1-2 times per week ROS Constitutional Constitutional: Denies fatigue, fever(s), poor appetite, weight gain or weight loss Gastrointestinal Gastrointestinal: Denies belching, bloating, change in bowel habits, change in stool character, chewing difficulty, coffee ground emesis, constipation, cramping, diarrhea, dyspepsia, dysphagia, early satiety, excessive flatus, fecalincontinence, heartburn, hematemesis, hematochezia, hemorrhoids, loose stools, melena, nausea, odynophagia, rectal bleeding, tenesmus, vomiting or weight changes Vital Signs Vital Signs Vital Signs: 09/04/24 09:30 09/04/24 09:30 Temperature 97.4 F L Temperature Source Temporal Pulse Rate 72 Respiratory Rate 18 Respiratory Pattern Normal Blood Pressure 162/74 H Blood Pressure Mean 103 Blood Pressure Source Monitor Blood Pressure Position Semi-Fowlers Blood Pressure Location Left Arm Pulse Ox 99 Oxygen Delivery Method Room Air Weight Weight: 165 lb 5.547 oz Body Mass Index (BMI) 29.2 Physical Exam Const alert, oriented x3, no apparent distress and healthy appearing General Appearance: cooperative GI normal to inspection, nondistended, normoactive bowel sounds, soft to palpation,non-tender and non-distended Percussion: normal to percussion Rectal Exam: deferred Results Lab / Micro Data Labs: Laboratory Results - last 24 hr 09/04/24 09:31: POC Glucose 117 H Assessment & Plan Assessment/Plan (1) Encounter for screening colonoscopy: PLAN: Assessment and Plan Assessment and Plan (1) Encounter for screening colonoscopy: Status: Acute Plan: She will undergo screening colon. She was explained alternatives, risk and benefits include, study bleeding, infection, sepsis, perforation, need for emergent urgent . She will have an ASA of 3. 09/04/24 1045 <Electronically signed by Karri Banegas DO> Cosigner Signature (if applicable): CC: Dr. Scott Steele MD; Karri Bnaegas DO~ Signed [facility] Work Phone: Reason for referral (narrative)No reason for referral information availableWMercy Health Will[facility] Work Phone: Chief Complaint and Reason for Visit Chief Complaint HYPERSOMNIA [place]; LM 3/2 Chief Complaint HYPERSOMNIA [place]; LM 3/2 MULTIPLE THYROID NODULES Chief Complaint MULTIPLE THYROID NOD ULES Chief Complaint SCREENING Chief Complaint SCREENING SKIN Chief Complaint SKIN Chief Complaint SKIN EORDER Chief Complaint EORDER Chief Complaint Encounter for other screening for malignant neopla Chief Complaint Admit Date PRE COLON June 28, 2024 9 :51am Reason for Visit Admit Date Encounter for screening colonoscopy Febr uary 2024 9:51am Encounter for screening colonoscopy Apri l 16th, 2025 9:16am Chief Complaint Admit Date Amb Documentation October 17, 2024 10:25 am EORDER BILATERAL HIPS/ LUMBAR October 25, 2024 8:56am MGUS October 28, 2024 8:11a m MED ONC October 28, 2024 10:31 am Reason for Visit Admit Date Encounter for screening colonoscopy Apri l 2024 9:16am Macroglobulinemia October 28, 2024 8:11a m Iron deficiency October 28, 2024 8:11a m Chief Complaint Admit Date Amb Documentation October 17, 2024 10:25 am EORDER BILATERAL HIPS/ LUMBAR October 25, 2024 8:56am MGUS October 28, 2024 8:11a m MED ONC October 28, 2024 10:31 am E ORDER November 06, 2024 8:20 am Reason for Visit Admit Date Encounter for screening colonoscopy Apri l 2024 9:16am Iron deficiency October 28, 2024 8:11a m Macroglobulinemia October 28, 2024 8:11a m Family History No Family History Records Found Relationship Condition Age at Onset Recorded Date/T raciel mother Malignant neoplasm Unknown Hypertension Unknown Hypercholesterolemia Unknown Cerebrovascular accident (CVA) Unknown father Cardiac disease Unknown Kidney disorder Unknown Advance Directives No Advanced Directives Records Found Advance Directive Response Recorded Date/ Time Living Will Yes February 05, 2019 10:48am Power of Extractor Operator Solvent Process Yes January 10:48am Advance Directive Response Recorded Date/ Time Living Will Yes February 05, 2019 9:48am Power of Extractor Operator Solvent Process Yes January 9:48am Advance Directive Response Recorded Date/ Time Living Will Yes August 29, 2024 2:31pm Do you have a Healthcare Power of Extractor Operator Solvent Process? Yes August 29, 2024 2:31pm Name of Medical Power of Extractor Operator Solvent Process [place] August 29, 2024 2:31pm Summary Purpose Additional Source Comments Goals (unrecognized section and content) Goals may be documented in a n alternate sectionGoals may be documented in an alternate sectionGoals may be documented in an alternate sectionGoals may be documented in an alternate sectionGoals may be documented in an alternate sectionGoals may be documented in an alternate sectionGoals may be documented in an alternate sectionGoals may be documented in an alternate sectionGoals may be documented in an alternate sectionGoals may be documented in an alternate sectionGoals may be documented in an alternate sectionGoals may be documented in an alternate sectionGoals may be documented in an alternate sectionGoals may be documented in an alternate sectionGoals may be documented in an alternate section Care Teams (unrecognized sec tion and content) Team Status: Active Member Role Status Dates Dr. Scott Steele MD Family Provider Active Dr. Scott Steele MD Primary Care Provider Active Team Status: Inactive Member Role Status Dates Dr. Scott Steele MD Primary Care Pr ovider, Attending Provider, Referring Provider Active Team Status: Inactive Member Role Status Dates Dr. Scott Steele MD Primary Care Provider Active Miles AUGUSTIN, PA Attending Provider, Referring Provi rochelle Active Team Status: Inactive Member Role Status Dates Dr. Scott Steele MD Primary Care Provider Active Kiara AUGUSTNI, [place] Attending Provider, Referring Pr ovider Active Team Status: Inactive Member Role Status Dates Dr. Scott Steele MD Primary Care Provider, Attend ing Provider Active Team Status: Inactive Member Role Status Dates Dr. Scott Steele MD Primary Care Provider Active Kiara AUGUSTIN PA Attending Provider Active Team Status: Inactive Member Role Status Dates Dr. Scott Steele MD Primary Care Provider, Attend ing Provider Active Kiara AUGUSTIN PA Other Provider Active Trap Operator Relationship Specialty Start Date End Date Scott Steele MD [address] [address] PCP - General Family Medicine 03/22/24 Trap Operator Relationship Specialty Start Date End Date Scott Steele MD [address] [address] PCP - General Family Medicine 03/22/24 Juan Ramon Purcell MD [address] [place] [address] Hematology/Oncology 05/07/24 Team Status: Active Member Role Status Dates Dr. Scott Steele MD Primary Care Provider Active Team Status: Inactive Member Role Status Dates Dr. Scott Steele MD Primary Care Provider Active Start: June 28, 2024 End: June 28, 2024 Dr. Scott Steele MD Referring Provider Active Start: June 28, 2024 End: June 28, 2024 Dr. Karri Banegas DO Attending Provider Active Start: June 28, 2024 End: June 28, 2024 Team Status: Inactive Member Role Status Dates Dr. Scott Steele MD Primary Care Provider Active Start: September 04, 2024 End: September 04, 2024 Dr. Scott Steele MD Referring Provider Active Start: September 04, 2024 End: September 04, 2024 Dr. Karri Banegas DO Attending Provider Active Start: September 04, 2024 End: September 04, 2024 Team Status: Active Member Role Status Dates Dr. Scott Steele MD Primary Care Provider Active Start: September 04, 2024 Dr. Scott Steele MD Referring Provider Active Start: September 04, 2024 Dr. Karri Banegas DO Attending Provider Active Start: September 04, 2024 Dr. Karri Banegas DO Other Provider Active St art: September 04, 2024 Team Status: Inactive Member Role Status Dates Dr. Scott Steele MD Primary Care Provider Active Start: October 09, 2024 End: October 09, 2024 Dr. Scott Steele MD Attending Provider Active Start: October 09, 2024 End: October 09, 2024 Dr. Scott Steele MD Referring Provider Active Start: October 09, 2024 End: October 09, 2024 Team Status: Active Member Role Status Dates Dr. Scott Steele MD Primary Care Provider Active Start: October 17, 2024 Theresa Serna Attending Provider Active Start: October 17, 2024 Team Status: Active Member Role Status Dates Dr. Scott Steele MD Primary Care Provider Active Start: October 25, 2024 Dr. Scott Steele MD Attending Provider Active Start: October 25, 2024 Dr. Scott Steele MD Referring Provider Active Start: October 25, 2024 Team Status: Inactive Member Role Status Dates Dr. Scott Steele MD Primary Care Provider Active Start: October 28, 2024 End: October 28, 2024 Dr. Scott Steele MD Referring Provider Active Start: October 28, 2024 End: October 28, 2024 Dr. Kong Vieira MD Attending Provider Active S tart: October 28, 2024 End: October 28, 2024 Team Status: Active Member Role Status Dates Dr. Scott Steele MD Primary Care Provider Active Start: October 28, 2024 Dr. Kong Vieira MD Attending Provider Active S tart: October 28, 2024 Dr. Kong Vieira MD Referring Provider Active S tart: October 28, 2024 Team Status: Inactive Member Role Status Dates Dr. Scott Steele MD Primary Care Provider Active Start: October 25, 2024 End: October 25, 2024 Dr. Scott Steele MD Attending Provider Active Start: October 25, 2024 End: October 25, 2024 Dr. Scott Steele MD Referring Provider Active Start: October 25, 2024 End: October 25, 2024 Team Status: Inactive Member Role Status Dates Dr. Scott Steele MD Primary Care Provider Active Start: November 06, 2024 End: November 06, 2024 Dr. Kong Vieira MD Attending Provider Active S tart: November 06, 2024 End: November 06, 2024 Dr. Kong Vieira MD Referring Provider Active S tart: November 06, 2024 End: November 06, 2024 Source Comments (unrecognize d section and content) In the event this informatio n is protected by the Federal Confidentiality of Alcohol and Drug Abuse Patient Records regulations: The Federal rules restrict any use of the information to criminally investigate or prosecute any alcohol or drug abuse patient.[facility] the event this information is protected by the Federal Confidentiality of Alcohol and Drug Abuse Patient Records regulations: The Federal rules restrict any use of the information to criminally investigate or prosecute any alcohol or drug abuse patient.[facility] Reason for Visit (unrecogniz ed section and content) Reason Comments New Patient Evaluation INFORMATION SOURCE (unrecogn ized section and content) DATE CREATED AUTHOR 10/16/2024 [facility] DATE CREATED AUTHOR AUTHOR'S ORGANIZ ATION 11/12/2024 [facility] [place] FOR RECORDS PERTAINING TO PATIENTS WHO ARE OR HAVE BEEN ENROLLED IN A CHEMICAL DEPENDENCY/SUBSTANCEABUSE PROGRAM, SOME INFORMATION MAY BE OMITTED. This clinical summary was aggregated from multiple sources. Caution should be exercised in using it in the provision of clinical care. This summary normalizes information from multiple sources, and as a consequence, information in this document may materially change the coding, format and clinical context of patient data. In addition, data may be omitted in some cases. CLINICAL DECISIONS SHOULD BE BASED ON THE PRIMARY CLINICAL RECORDS. [employer] provides no warranty or guarantee of the accuracy or completeness of information in this document.
== END | disposition home or self-care (01) ==
LOC: RAD 09:20
PROVIDERS: PCP Family Medicine; Referring Provider Internal Medicine Medical Oncology; Visit Provider Internal Medicine Medical Oncology
DX: C88.00 Waldenstrom 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 (principal); D47.2 Monoclonal gammopathy
CPT/HCPCS: 77075

== ENCOUNTER → 2024-11-20 | Outpatient (CLI) | payer MEDICARE, OTHER, SELFPAY ==
--- NOTE | 2024-11-20 13:24 | CT_ITS ---
PROCEDURE: SOFT TISSUE NECK WITH CONTRAST 11/20/2024 REASON FOR EXAM: MACROGLOBULINEMIA TECHNIQUE: SOFT TISSUE NECK WITH CONTRAST CONTRAST: The amount of contrast given is not specified. One or more dose reduction techniques were used (e.g., Automated exposure control, adjustment of the mA and/or kV according to patient size, use of iterative reconstruction technique). RADIATION DOSE SUMMARY: CTDlvol: 15.20 mGy DLP: 1776 dot 3 9 mGycm FINDINGS: Symmetric appearance of the orbits. Normal nasopharynx and pterygoid palatine fossa. Normal parotid glands are noted. The oral cavity including the tongue appear symmetric. Normal submandibular glands. No mucosal asymmetry of the palatine tonsils. Normal aryepiglottic folds and epiglottis. Normal vocal folds and thyroid. Intact thoracic inlet. No enlarged cervical lymph nodes. No bony destructive or lucent changes. CT/Soft Tissue Neck WITH Contrast IMPRESSION: Study within normal limits Reading [facility]
--- NOTE | 2024-11-20 13:24 | CT_ITS ---
PROCEDURE: CT CHEST, ABD, PEL W/CONTRAST 11/20/2024 REASON FOR EXAM: IV ONLY-MACROGLOBULINEMIA TECHNIQUE: Chest, abdomen and pelvis CT with intravenous contrast. Coronal and Sagittal reconstruction series were provided. One or more dose reduction techniques were used (e.g., Automated exposure control, adjustment of the mA and/or kV according to patient size, use of iterative reconstruction technique. PATIENT PREPARATION: Per protocol ORAL CONTRAST TYPE: None. AMOUNT: mL CONTRAST: Isovue 370 VOLUME: 98mL Gauge IV RADIATION DOSE SUMMARY: CTDlvol: 70 mGy DLP: 1776 mGycm COMPARISON: Bone survey 11/13/2024 FINDINGS: Unremarkable base of neck and axilla. Thoracic spine degeneration. Normal esophagus. Upper limits of normal heart size. No acute vascular pathology. No acute chest wall findings. Central airways patent. Dependent atelectasis. No consolidation, effusion, or pneumothorax. No suspicious lung nodule. Normal gallbladder. Upper abdominal solid organs show no acute findings. There is diffuse hepatic steatosis. Periportal adenopathy, often related to medical liver disease. No hydronephrosis or ureteral stone. Normal bladder. Status post hysterectomy. No retroperitoneal or pelvic adenopathy. No free air. Nondistended bowel. Normal appendix. No acute large bowel findings. Lumbar spine degeneration. No acute abdominal wall findings. Advanced right hip osteoarthritis possibly on a posttraumatic basis. CT/CT Chest, Abd, Pel w/Contrast IMPRESSION: No evidence for chest, abdomen, or pelvic metastatic disease. Reading Location: [place] [id number]
--- OUTSIDE RECORDS SUMMARY | 2024-11-20 22:29 | XMS RPT_ITS | CCD ---
Author Organization [facility] [employer] Care Team Providers Care Casino Porter Name Role Phone Scott Steele MD Primary Care Provider Juan Ramon Purcell MD Unavailable Laina GREY, Dr. Scott Crump Primary Care Provider [phone] Dr. Scott Steele MD Referring Provider Dr. Karri Banegas DO Attending Provider Dr. Karri Banegas DO Other Provider Laina GREY, Dr. Scott Crump Attending Provider SCOTT STEELE Primary Care Unavailable JUAN RAMON PURCELL Attending Unavailable JUAN RAMON PURCELL Referring Unavailable SCOTT STEELE Primary Care Unavailable JUAN RAMON PURCELL Referring Unavailable SCOTT STEELE Primary Care Unavailable Dr. Scott Steele MD Primary Care Provider Dr. Scott Steele MD Referring Provider Dr. Karri Banegas DO Attending Provider Theresa Serna Attending Provider Unavailable Dr. Kong Vieira MD Attending Provider [phone] Dr. Kong Vieira MD Referring Provider Scott Steele Primary Care Unavailable Scott Steele Referring Unavailable Scott Steele Attending Unavailable Scott Steele Primary Care Unavailable Scott Steele Referring Unavailable Scott Steele Attending Unavailable Scott Steele Primary Care Unavailable Kong Vieira Referring Unavailable Kong Vieira Attending Unavailable Scott Steele Primary Care Unavailable Kong Vieira Attending Unavailable Kong Vieira Referring Unavailable Scott Steele Primary Care Unavailable Theresa Serna Attending Unavailable Scott Steele Primary Care Unavailable Scott Steele Referring Unavailable Friend, Karri Attending Unavailable Friend, Karri Consulting Unavailable Scott Steele Referring Unavailable Friend, Karri Attending Unavailable Scott Steele Primary Care Unavailable Scott Steele Primary Care Unavailable Scott Steele Referring Unavailable Kong Vieira Attending Unavailable Scott Steele Primary Care Unavailable Kong Vieira Attending Unavailable Kong Vieira Referring Unavailable Scott Steele Primary Care Unavailable Kong Vieira Attending Unavailable Kong Vieira Referring Unavailable Kiara Yarbrough Consulting Unavailable Sibilia Hamzah V Referring Unavailable Sibilia Hamzah V Attending Unavailable Scott Steele Primary Care Unavailable Scott Steele Attending Unavailable Laina, Scott Crump Primary Care Unavailable Scott Steele Referring Unavailable Scott Steele Attending Unavailable Scott Steele Primary Care Unavailable Scott Steele Primary Care Unavailable Scott Steele Referring Unavailable Friend, Karri Attending Unavailable Allergies Allergy Classification Reported Allergen(s) Allergy Type Date of Onset Reaction(s) Facility (7 sources) empagliflozin; Translations: [EMPAGLIFLOZIN] Drug Allergy 4 Other: See Comments [facility] (1 source) empagliflozin Drug Allergy 5 [facility] Repository Medications Current Medications Medication Drug Class(es) [...] 12:00am Start: 08-30-2016 take 1 capsule by [facility] once daily Cholecalciferol, Vitamin D3, 5,000 unit cap Take 1 capsule by mouth once daily. 0 08/30/2016 Active take 2 tablets by mo ut once daily cholecalciferol (VITAMIN D) 1,000 unit tab tablet Take two tablets by mouth once daily. Active clobetasol propionate 0.0005 mg/mg topical ointment (2 sources) Corticosteroid Start: 02-22-2024 clobetasol (TEMOVATE) 0.05 % ointment Apply 1 application to affected area two times a day as needed. 02/22/2024 Active dapagliflozin 10 mg oral tablet (8 sources) Sodium-Glucose Cotransporter 2 Inhibitor Start: 06-28-2024 take 1 tablet by mouth once daily in the morning Dapagliflozin Propanediol (Farxiga) 10 mg tablet Active 10 mg PO EVERY MORNING June 28, 2024 1:00am take 1 tablet by mouth once christian y FARXIGA 10 mg tablet Take 10 mg by mouth once daily. Active ferrous sulfate 325 mg oral tablet (6 sources) Start: 10-17-2024 take 1 tablet by [...] daily. 90 tablet 1 08/09/2018 Active mecobalamin (4 sources) Start: 10-17-2024 Mecobalamin (V itamin B12) [...] 12:00am Multivitamin With Minerals 1 EACH tablet (6 sources) Start: 02-05-2019 take 1 tablet by [...] Start: 01-22-2019 take 1 capsule by mo [facility] once daily Omeprazole 40 mg capsule,delayed release(DR/EC) Active 40 mg PO DAILY January 22, 2019 12:00am rosuvastatin calcium 20 mg oral tablet (8 sources) HMG-CoA Reductase Inhibitor Start: 06-28-2024 take [...] 11:19am Start: 05-07-2018 [facility] verapamil (CALAN, ISOPTIN) 120 mg [...] Start: 08-09-2018 take 1 tablet by noemi twice daily for pain diclofenac, EC, (VOLTAREN) [...] gammopathy] Onset: 4 04-05-2024 Chronic Nutritional deficiencies (9 sources) Iron deficiency; Translations: [Iron deficiency] Onset: [...] Episodic Other nutritional; endocrine; and metabolic disorders (8 sources) Macroglobulinemia; Translations: [Macroglobulinemia] 10-28-2024 Chronic Comment on above: Discussed causes of high IgM level including Lymphoma. Pt wants to continue with work up. Discussed causes of high IgM level including Lymphoma. Pt wants to continue with work up.She does not want to go back to [facility]. Other screening for suspected conditions (not mental disorders or infectious disease) (20 sources) Patient encounter status; Translations: [Encounter for screening for malignant neoplasm of colon] Onset: 6 Resolved: 7 08-30-2016 Episodic Other skin disorders (20 sources) Eruption; Translations: [Rash and other nonspecific skin eruption] 01-22-2019 Episodic Comment on above: PSORASIS RASH ON ELB OW Residual codes; unclassified (20 sources) History of colonoscopy; Translations: [Other specified postprocedural states] 01-22-2019 Episodic Comment on above: 2013 Residual codes; unclassified (20 sources) Past history of procedure; Translations: [Other specified postprocedural states] 10-30-2018 Episodic Comment on above: FNA Right thyroid- 0 10/23/18 Thyroid disorders (20 sources) Multinodular goiter; Translations: [Nontoxic multinodular goiter] 10-30-2018 Chronic Thyroid disorders (20 sources) Disorder of thyroid gland; Translations: [Disorder of thyroid, unspecified] 01-22-2019 Episodic Unclassified (2 sources) 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 Scott Steele MD Status: REG CLI Study: Bone Survey Comp(Axial Append) Date of Exam: 0 11/12/24 Exam# [id number] Ordering Dr: Kong Vieira MD PROCEDURE: BONE SURVEY COMP(AXIAL APPEND) 11/12/2024 REASON FOR EXAM: MACROGLOBULINEMIA F, age 69 y/o . TECHNIQUE: BONE SURVEY COMP(AXIAL APPEND) COMPARISON: Radiographs on 10/25/2024. FINDINGS: No fracture or dislocation is seen. No lytic or blastic bone lesion is noted. No periosteal reaction is identified. Unremarkable lungs. Degenerative joint disease of the hips, more prominent on the right side. 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 RAD/Bone Survey Comp(Axial Append) IMPRESSION: No suspicious bone lesion is identified. Reading Location: [place] [address] CC: Dr. Scott Steele MD; Dr. 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, [address] Stool gastrointestinal hemog lobin detection by immunologic methodOrdered By: Kong Vieira on 11-06-2024 Lower GI hemoglobin IA Ql (Stl) [facility] Celiac AB,Comprehensiveon ANTIGLIADIN IGA 3 units Normal 0-19 [facility] Comment on above: Result Comment: Nega tive 0 - 19 Weak Positive 20 - 30 Moderate to Strong Positive >30 Performed By: #### L 500.4050, L503.6150, L503.0105, L506.0250, L100.0100, L500.4100, L501.9985, L503.6075, L503.6550, L506.1000 #### [facility] [address] [place], [address] ANTIGLIADIN IGG 1 units Normal 0-19 [facility] Comment on above: Result Comment: Nega tive 0 - 19 Weak Positive 20 - 30 Moderate to Strong Positive >30 Performed By: #### L 500.4050, L503.6150, L503.0105, L506.0250, L100.0100, L500.4100, L501.9985, L503.6075, L503.6550, L506.1000 #### [facility] [address] [place], [place], [id number] ENDOMYSIAL IGA Negative Normal Negative [facility] Comment on above: Performed By: #### L 500.4050, L503.6150, L503.0105, L506.0250, L100.0100, L500.4100, L501.9985, L503.6075, L503.6550, L506.1000 #### [facility] [address] [place], [place], [id number] tTG IGA <2 Normal 0-3 [facility] Comment on above: Result Comment: Nega tive 0 - 3 Weak Positive 4 - 10 Positive >10 Tissue Transglutaminase (tTG) has been identified as the endomysial antigen. Studies have demonstr- ated that endomysial IgA antibodies have over 99% specificity for gluten sensitive enteropathy. Performed By: #### L 500.4050, L503.6150, L503.0105, L506.0250, L100.0100, L500.4100, L501.9985, L503.6075, L503.6550, L506.1000 #### [facility] [address] [place], [place], [id number] tTG IGG <2 Normal 0-5 [facility] Comment on above: Result Comment: Nega tive 0 - 5 Weak Positive 6 - 9 Positive >9 Performed By: #### L 500.4050, L503.6150, L503.0105, L506.0250, L100.0100, L500.4100, L501.9985, L503.6075, L503.6550, L506.1000 #### [facility] [address] [place], [place], [id number] DEE + Protein Elect, Serumon 10-31-2024 Albumin [Mass/Vol] 4.1 g/dL Normal 2.9-4.4 [facility] Comment on above: Order Comment: Order Date: 08/30/23 Order Info: 4548-4 - A1C Performed By: #### L 500.4050, L503.6150, L503.0105, L506.0250, L100.0100, L500.4100, L501.9985, L503.6075, L503.6550, L506.1000 #### [facility] [address] [place], [place], [id number] Albumin/Globulin [Mass ratio] 1.3 {ratio} Normal 0.7-1.7 [facility] Comment on above: Order Comment: Order Date: 08/30/23 Order Info: 4548-4 - A1C Performed By: #### L 500.4050, L503.6150, L503.0105, L506.0250, L100.0100, L500.4100, L501.9985, L503.6075, L503.6550, L506.1000 #### [facility] [address] [place], [place], [id number] NZPEV-6-SAKD 0.2 g/dL Normal 0.0-0.4 [facility] Comment on above: Order Comment: Order Date: 08/30/23 Order Info: 4548-4 - A1C Performed By: #### L 500.4050, L503.6150, L503.0105, L506.0250, L100.0100, L500.4100, L501.9985, L503.6075, L503.6550, L506.1000 #### [facility] [address] [place], [address] VJSYI-5-MQNI 0.9 g/dL Normal 0.4-1.0 [facility] Comment on above: Order Comment: Order Date: 08/30/23 Order Info: 4548-4 - A1C Performed By: #### L 500.4050, L503.6150, L503.0105, L506.0250, L100.0100, L500.4100, L501.9985, L503.6075, L503.6550, L506.1000 #### [facility] [address] [facility] [address] [place], [place], [id number] (876) BETA GLOBULIN 1.0 g/dL Normal 0.7-1.3 [facility] Comment on above: Order Comment: Order Date: 08/30/23 Order Info: 4548-4 - A1C Performed By: #### L 500.4050, L503.6150, L503.0105, L506.0250, L100.0100, L500.4100, L501.9985, L503.6075, L503.6550, L506.1000 #### [facility] [address] [place], [place], [id number] (596) GAMMA GLOBULIN 1.1 g/dL Normal 0.4-1.8 [facility] Comment on above: Order Comment: Order Date: 08/30/23 Order Info: 4548-4 - A1C Performed By: #### L 500.4050, L503.6150, L503.0105, L506.0250, L100.0100, L500.4100, L501.9985, L503.6075, L503.6550, L506.1000 #### [facility] [address] [place], [address] Globulin (S) [Mass/Vol] 3.3 g/dL Normal 2.2-3.9 [facility] Comment on above: Order Comment: Order Date: 08/30/23 Order Info: 4548-4 - A1C Performed By: #### L 500.4050, L503.6150, L503.0105, L506.0250, L100.0100, L500.4100, L501.9985, L503.6075, L503.6550, L506.1000 #### [facility] [address] [place], [address] DEE RESULT,S Comment: Normal . [facility] Comment on above: Order Comment: Order Date: 08/30/23 Order Info: 4548-4 - A1C Result Comment: Pres ence of monoclonal protein is unclear at this time. Suggest repeat in 3 to 6 months if clinically indicated. Performed By: #### L 500.4050, L503.6150, L503.0105, L506.0250, L100.0100, L500.4100, L501.9985, L503.6075, L503.6550, L506.1000 #### [facility] [address] [place], [address] IMMUNOGLOB A QN 178 mg/dL Normal 87-352 [facility] Comment on above: Order Comment: Order Date: 08/30/23 Order Info: 4548-4 - A1C Performed By: #### L 500.4050, L503.6150, L503.0105, L506.0250, L100.0100, L500.4100, L501.9985, L503.6075, L503.6550, L506.1000 #### [facility] [address] [place], [address] IMMUNOGLOB G QN 772 mg/dL Normal 586-1602 [facility] Comment on above: Order Comment: Order Date: 08/30/23 Order Info: 4548-4 - A1C Performed By: #### L 500.4050, L503.6150, L503.0105, L506.0250, L100.0100, L500.4100, L501.9985, L503.6075, L503.6550, L506.1000 #### [facility] [address] [place], [address] IMMUNOGLOB M QN 603 mg/dL High 26-217 [facility] Comment on above: Order Comment: Order Date: 08/30/23 Order Info: 4548-4 - A1C Performed By: #### L 500.4050, L503.6150, L503.0105, L506.0250, L100.0100, L500.4100, L501.9985, L503.6075, L503.6550, L506.1000 #### [facility] [address] [place], [place], [id number] (944) M-Kris Comment: Normal Not Observed [facility] Comment on above: Order Comment: Order Date: 08/30/23 Order Info: 4548-4 - A1C Result Comment: ASYM METRICAL GAMMA Performed By: #### L 500.4050, L503.6150, L503.0105, L506.0250, L100.0100, L500.4100, L501.9985, L503.6075, L503.6550, L506.1000 #### [facility] [address] [place], [address] NOTE: Comment Normal . [facility] Comment on above: Order Comment: Order Date: 08/30/23 Order Info: 4548-4 - A1C Result Comment: Prot ein electrophoresis scan will follow via computer, mail, or crusher dry ground mica delivery. Performed By: #### L 500.4050, L503.6150, L503.0105, L506.0250, L100.0100, L500.4100, L501.9985, L503.6075, L503.6550, L506.1000 #### [facility] [address] [place], [address] Protein [Mass/Vol] 7.4 g/dL Normal 6.0-8.5 [facility] Comment on above: Order Comment: Order Date: 08/30/23 Order Info: 4548-4 - A1C Performed By: #### L 500.4050, L503.6150, L503.0105, L506.0250, L100.0100, L500.4100, L501.9985, L503.6075, L503.6550, L506.1000 #### [facility] [address] [place], [address] L501.5101on 10-31-2024 GGTP 18 IU/L Normal 0-60 [facility] Comment on above: Result Comment: Perf ormed at: [facility] [address] [id number] [employer] Advisor: Han Das PhD, Phone: [phone] Performed By: #### L 500.4050, L503.6150, L503.0105, L506.0250, L100.0100, L500.4100, L501.9985, L503.6075, L503.6550, L506.1000 #### [facility] [address] [place], [address] Immunoglobulins G/A/Mon 06- 0-2024 IMMUNOGLOB A QN 176 mg/dL Normal 87-352 [facility] Comment on above: Order Comment: Order Date: 08/30/23 Order Info: 0184-1 - CBCD Performed By: #### L 500.4050, L503.6150, L503.0105, L506.0250, L100.0100, L500.4100, L501.9985, L503.6075, L503.6550, L506.1000 #### [facility] [address] [place], [address] IMMUNOGLOB G QN 789 mg/dL Normal 586-1602 [facility] Comment on above: Order Comment: Order Date: 08/30/23 Order Info: 0184-1 - CBCD Performed By: #### L 500.4050, L503.6150, L503.0105, L506.0250, L100.0100, L500.4100, L501.9985, L503.6075, L503.6550, L506.1000 #### [facility] [address] [place], [address] IMMUNOGLOB M QN 598 mg/dL High 26-217 [facility] Comment on above: Order Comment: Order Date: 08/30/23 Order Info: 0184-1 - CBCD Performed By: #### L 500.4050, L503.6150, L503.0105, L506.0250, L100.0100, L500.4100, L501.9985, L503.6075, L503.6550, L506.1000 #### [facility] [address] [place], [address] [place] Lambda Light Chainson 10-29-2024 FR KAPPA LT CHN 30.9 mg/L Abnormal 3.3-19.4 [facility] Comment on above: Performed By: #### L 500.4050, L503.6150, L503.0105, L506.0250, L100.0100, L500.4100, L501.9985, L503.6075, L503.6550, L506.1000 #### [facility] [address] [place], [address] FR LAMBDA LT CH 29.9 mg/L Abnormal 5.7-26.3 [facility] Comment on above: Performed By: #### L 500.4050, L503.6150, L503.0105, L506.0250, L100.0100, L500.4100, L501.9985, L503.6075, L503.6550, L506.1000 #### [facility] [address] [place], [place], [id number] KAPPA/LAMBDA % 1.03 Normal 0.26-1.65 [facility] Comment on above: Result Comment: Perf ormed at: [place] [id number] [place], [place] [id number] [employer] Advisor: Han Das PhD, Phone: [phone] Performed By: #### L 500.4050, L503.6150, L503.0105, L506.0250, L100.0100, L500.4100, L501.9985, L503.6075, L503.6550, L506.1000 #### [facility] [address] [place], [place], [id number] L3410.9992on 10-29-2024 [facility] Misc. COMMENT Normal . [facility] Comment on above: Order Comment: Order Date: 08/30/23 Order Info: 4548-4 - A1C Result Comment: Perf ormed at: [place] [id number] [place], [place] [id number] [employer] Advisor: Han Das PhD, Phone: [phone] Performed By: #### L 500.4050, L503.6150, L503.0105, L506.0250, L100.0100, L500.4100, L501.9985, L503.6075, L503.6550, L506.1000 #### [facility] [address] [place], [place], [id number] Absolute lymphocyte countOrd ered By: Kong Vieira on 10-28-2024 Lymphocytes Auto (Unsp spec) [#/Vol] 2.15 10*3/uL 0.83-4.51 [facility] Absolute neutrophil countOrd ered By: Kong Vieira on 10-28-2024 Neutrophils (Bld) [#/Vol] 6.5 10*3/uL 2.0-7.7 [facility] Albumin Elph [Mass/Vol]Order ed By: Kong Vieira on 10-28-2024 Albumin [Mass/Vol] 4.1 g/dL 2.9-4.4 [facility] Anion gap in Serum or Plasma Ordered By: Kong Vieira on 10-28-2024 Anion gap [Moles/Vol] 16 mmol/L High 5-15 [facility] Comment on above: Previous reported re sult: 15 Edited by: CELIO on 10/28/24:1215 AMENDED REPORT 10/28/241214 GAP previously reported as: 15 Automated lymphocyte count a s percentage of total leukocytesOrdered By: Kong Vieira on 10-28-2024 Lymphocytes/100 WBC Auto (Unsp spec) 22.7 % 19- [facility] BUN/creatinine ratioOrdered By: Kong Vieira on 10-28-2024 Urea nitrogen/Creatinine [Mass ratio] 19.6 mg/mg 10- [facility] Comment on above: Previous reported re sult: 20.3 RATIOEdited by: CELIO on 10/28/24:1215 AMENDED REPORT 10/28/245 BUN/CRE previously reported as: 20.3 H RATIO Basophil percentageOrdered B y: Kong Vieira on 10-28-2024 Basophils/100 WBC (Bld) 0.6 % 0-1 [facility] Bilirubin, totalOrdered By: Kong Vieira on 10-28-2024 Bilirubin [Mass/Vol] 0.26 mg/dL 0.00-1.30 [facility] Comment on above: Previous reported re sult: 0.28 mg/dLEdited by: CELIO on 10/28/24:1215 AMENDED REPORT 10/28/241214 T BILI previously reported as: 0.28 mg/dL CBC W/Diff, Automatedon Absolute Lymph 2.15 X10 3/uL Normal 0.83-4.51 [facility] Comment on above: Performed By: #### L 500.4050, L503.6150, L503.0105, L506.0250, L100.0100, L500.4100, L501.9985, L503.6075, L503.6550, L506.1000 #### [facility] [address] [place], [address] Absolute Neut 6.5 X10 3/uL Normal 2.0-7.7 [facility] Comment on above: Performed By: #### L 500.4050, L503.6150, L503.0105, L506.0250, L100.0100, L500.4100, L501.9985, L503.6075, L503.6550, L506.1000 #### [facility] [address] [place], [place], [phone] (925) Basophils/100 WBC (Bld) 0.6 % Normal 0-1 [facility] Comment on above: Performed By: #### L 500.4050, L503.6150, L503.0105, L506.0250, L100.0100, L500.4100, L501.9985, L503.6075, L503.6550, L506.1000 #### [facility] [address] [place], [address] (435) Eosinophils/100 WBC (Bld) 0.4 % Normal 0-5 [facility] Comment on above: Performed By: #### L 500.4050, L503.6150, L503.0105, L506.0250, L100.0100, L500.4100, L501.9985, L503.6075, L503.6550, L506.1000 #### [facility] [address] [place], [place], [phone] (473) Erythrocyte distribution width (RBC) [Ratio] 14.5 % Normal 11.6-14.6 [facility] Comment on above: Performed By: #### L 500.4050, L503.6150, L503.0105, L506.0250, L100.0100, L500.4100, L501.9985, L503.6075, L503.6550, L506.1000 #### [facility] [address] [place], [address] (400) Hematocrit (Bld) [Volume fraction] 38.5 % Normal 37-47 [facility] Comment on above: Performed By: #### L 500.4050, L503.6150, L503.0105, L506.0250, L100.0100, L500.4100, L501.9985, L503.6075, L503.6550, L506.1000 #### [facility] [address] [place], [address] Hemoglobin (Bld) [Mass/Vol] 12.6 g/dL Normal 12.0-15.0 [facility] Comment on above: Performed By: #### L 500.4050, L503.6150, L503.0105, L506.0250, L100.0100, L500.4100, L501.9985, L503.6075, L503.6550, L506.1000 #### [facility] [address] [place], [address] IG% 0.400 Normal 0.0-0.9 [facility] Comment on above: Result Comment: IG% - Immature Granulocytes (promyelocytes, myelocytes and metamyelocytes) > 1% indicates that a LEFT SHIFT is Present. Performed By: #### L 500.4050, L503.6150, L503.0105, L506.0250, L100.0100, L500.4100, L501.9985, L503.6075, L503.6550, L506.1000 #### [facility] [address] [place], [address] Lymphocytes/100 WBC (Bld) 22.7 % Normal 19-41 [facility] Comment on above: Performed By: #### L 500.4050, L503.6150, L503.0105, L506.0250, L100.0100, L500.4100, L501.9985, L503.6075, L503.6550, L506.1000 #### [facility] [address] [place], [address] MCH (RBC) [Entitic mass] 28.9 pg Normal 27.0-32.0 [facility] Comment on above: Performed By: #### L 500.4050, L503.6150, L503.0105, L506.0250, L100.0100, L500.4100, L501.9985, L503.6075, L503.6550, L506.1000 #### [facility] [address] [facility] [place], [address] MCHC (RBC) [Mass/Vol] 32.7 g/dL Normal 32-36 [facility] Comment on above: Performed By: #### L 500.4050, L503.6150, L503.0105, L506.0250, L100.0100, L500.4100, L501.9985, L503.6075, L503.6550, L506.1000 #### [facility] [address] [facility] [place], [address] MCV (RBC) [Entitic vol] 88.3 fL Normal 81-99 [facility] Comment on above: Performed By: #### L 500.4050, L503.6150, L503.0105, L506.0250, L100.0100, L500.4100, L501.9985, L503.6075, L503.6550, L506.1000 #### [facility] [facility] [address] [place], [address] Monocytes/100 WBC (Bld) 7.7 % Normal 0-10 [facility] Comment on above: Performed By: #### L 500.4050, L503.6150, L503.0105, L506.0250, L100.0100, L500.4100, L501.9985, L503.6075, L503.6550, L506.1000 #### [facility] [address] [place] [place], [address] (286) Neutrophils/100 WBC (Bld) 68.2 % Normal 47-70 [facility] Comment on above: Performed By: #### L 500.4050, L503.6150, L503.0105, L506.0250, L100.0100, L500.4100, L501.9985, L503.6075, L503.6550, L506.1000 #### [facility] [address] [place], [address] (050) Nucleated RBC (Bld) [#/Vol] 0 10*3/uL Normal 0-5 [facility] Comment on above: Performed By: #### L 500.4050, L503.6150, L503.0105, L506.0250, L100.0100, L500.4100, L501.9985, L503.6075, L503.6550, L506.1000 #### [facility] [address] [place] [place], [address] (699) Platelet mean volume (Bld) [Entitic vol] 10.5 fL Normal 6.2-12.0 [facility] Comment on above: Performed By: #### L 500.4050, L503.6150, L503.0105, L506.0250, L100.0100, L500.4100, L501.9985, L503.6075, L503.6550, L506.1000 #### [facility] [address] [place], [address] (090) Platelets (Bld) [#/Vol] 300 10*3/uL Normal 150-450 [facility] Comment on above: Performed By: #### L 500.4050, L503.6150, L503.0105, L506.0250, L100.0100, L500.4100, L501.9985, L503.6075, L503.6550, L506.1000 #### [facility] [address] [facility] [address] [place], [place], [id number] RBC (Bld) [#/Vol] 4.36 10*6/uL Normal 4.2-5.4 [facility] Comment on above: Performed By: #### L 500.4050, L503.6150, L503.0105, L506.0250, L100.0100, L500.4100, L501.9985, L503.6075, L503.6550, L506.1000 #### [facility] [address] [place], [place], [id number] RDW SD 46.7 fl High 35.1-43.9 [facility] Comment on above: Performed By: #### L 500.4050, L503.6150, L503.0105, L506.0250, L100.0100, L500.4100, L501.9985, L503.6075, L503.6550, L506.1000 #### [facility] [address] [place], [place], [id number] WBC (Bld) [#/Vol] 9.5 10*3/uL Normal 4.4-11.0 [facility] Comment on above: Performed By: #### L 500.4050, L503.6150, L503.0105, L506.0250, L100.0100, L500.4100, L501.9985, L503.6075, L503.6550, L506.1000 #### [facility] [address] [place], [place], [id number] CRPon 10-28-2024 C-REACTIVE PROT < 3.00 Normal 0.0-3.0 [facility] Comment on above: Performed By: #### L 500.4050, L503.6150, L503.0105, L506.0250, L100.0100, L500.4100, L501.9985, L503.6075, L503.6550, L506.1000 #### [facility] [address] [facility] [place], [place], [id number] Carbon dioxide, total [Moles /volume] in Central venous bloodOrdered By: Kong Vieira on 10-28-2024 CO2 [Moles/Vol] 21.1 mmol/L 21.0-32.0 [facility] Comment on above: Previous reported re sult: 22.7 mmol/LEdited by: AUTOINS on 10/28/24:1215 AMENDED REPORT 10/28/241214 CO2 previously reported as: 22.7 mmol/L Chloride assayOrdered By: Kanwal Vieira on 10-28-2024 Chloride [Moles/Vol] 103 mmol/L 98-108 [facility] Comprehensive Metabolic Prof ilon 10-28-2024 Albumin [Mass/Vol] 4.6 g/dL Normal 3.4-4.8 [facility] Comment on above: Performed By: #### L 500.4050, L503.6150, L503.0105, L506.0250, L100.0100, L500.4100, L501.9985, L503.6075, L503.6550, L506.1000 #### [facility] [address] [place] [place], [address] Albumin/Globulin [Mass ratio] 1.5 {ratio} Normal 0.9-2.4 [facility] Comment on above: Performed By: #### L 500.4050, L503.6150, L503.0105, L506.0250, L100.0100, L500.4100, L501.9985, L503.6075, L503.6550, L506.1000 #### [facility] [address] [facility] [place], [address] ALK PHOS 41 U/L Normal 35-104 [facility] Comment on above: Result Comment: AMENDED REPORT 10/28/241214 ALK P previously reported as: 42 U/L Performed By: #### L 500.4050, L503.6150, L503.0105, L506.0250, L100.0100, L500.4100, L501.9985, L503.6075, L503.6550, L506.1000 #### [facility] [address] [place], [address] ALT [Catalytic activity/Vol] 18 U/L Normal <=34 [facility] Comment on above: Performed By: #### L 500.4050, L503.6150, L503.0105, L506.0250, L100.0100, L500.4100, L501.9985, L503.6075, L503.6550, L506.1000 #### [facility] [address] [facility] [place], [address] (176) AST [Catalytic activity/Vol] 22 U/L Normal <=31 [facility] Comment on above: Performed By: #### L 500.4050, L503.6150, L503.0105, L506.0250, L100.0100, L500.4100, L501.9985, L503.6075, L503.6550, L506.1000 #### [facility] [address] [place], [place], [id number] Bilirubin [Mass/Vol] 0.26 mg/dL Normal 0.00-1.30 [facility] Comment on above: Result Comment: AMENDED REPORT 10/28/245 T BILI previously reported as: 0.28 mg/dL Performed By: #### L 500.4050, L503.6150, L503.0105, L506.0250, L100.0100, L500.4100, L501.9985, L503.6075, L503.6550, L506.1000 #### [facility] [address] [place], [place], [phone] (666) BUN/CRE 19.6 RATIO Normal 10-20 [facility] Comment on above: Result Comment: AMENDED REPORT 10/28/245 BUN/CRE previously reported as: 20.3 H RATIO Performed By: #### L 500.4050, L503.6150, L503.0105, L506.0250, L100.0100, L500.4100, L501.9985, L503.6075, L503.6550, L506.1000 #### [facility] [address] [place], [address] Calcium [Mass/Vol] 10.0 mg/dL Normal 7.6-11.0 [facility] Comment on above: Result Comment: AMENDED REPORT 10/28/241214 CA previously reported as: 10.2 mg/dL Performed By: #### L 500.4050, L503.6150, L503.0105, L506.0250, L100.0100, L500.4100, L501.9985, L503.6075, L503.6550, L506.1000 #### [facility] [address] [place], [address] Chloride [Moles/Vol] 103 mmol/L Normal 98-108 [facility] Comment on above: Performed By: #### L 500.4050, L503.6150, L503.0105, L506.0250, L100.0100, L500.4100, L501.9985, L503.6075, L503.6550, L506.1000 #### [facility] [address] [place], [address] CO2 [Moles/Vol] 21.1 mmol/L Normal 21.0-32.0 [facility] Comment on above: Result Comment: AMENDED REPORT 10/28/241214 CO2 previously reported as: 22.7 mmol/L Performed By: #### L 500.4050, L503.6150, L503.0105, L506.0250, L100.0100, L500.4100, L501.9985, L503.6075, L503.6550, L506.1000 #### [facility] [address] [place], [address] Creatinine [Mass/Vol] 0.96 mg/dL Normal 0.70-1.20 [facility] Comment on above: Result Comment: AMENDED REPORT 10/28/241214 CREAT,SERUM previously reported as: 0.92 mg/dL Performed By: #### L 500.4050, L503.6150, L503.0105, L506.0250, L100.0100, L500.4100, L501.9985, L503.6075, L503.6550, L506.1000 #### [facility] [address] [place], [address] GAP 16 High 5-15 [facility] Comment on above: Result Comment: AMENDED REPORT 10/28/241214 GAP previously reported as: 15 Performed By: #### L 500.4050, L503.6150, L503.0105, L506.0250, L100.0100, L500.4100, L501.9985, L503.6075, L503.6550, L506.1000 #### [facility] [address] [place], [address] Globulin (S) [Mass/Vol] 3.1 g/dL Normal 2.2-4.2 [facility] Comment on above: Performed By: #### L 500.4050, L503.6150, L503.0105, L506.0250, L100.0100, L500.4100, L501.9985, L503.6075, L503.6550, L506.1000 #### [facility] [address] [place], [address] Glucose [Mass/Vol] 148 mg/dL High 70-99 [facility] Comment on above: Performed By: #### L 500.4050, L503.6150, L503.0105, L506.0250, L100.0100, L500.4100, L501.9985, L503.6075, L503.6550, L506.1000 #### [facility] [address] [place], [place], [id number] (349) Potassium [Moles/Vol] 4.5 mmol/L Normal 3.3-5.1 [facility] Comment on above: Performed By: #### L 500.4050, L503.6150, L503.0105, L506.0250, L100.0100, L500.4100, L501.9985, L503.6075, L503.6550, L506.1000 #### [facility] [address] [place], [place], [phone] (466) Sodium [Moles/Vol] 140 mmol/L Normal 133-145 [facility] Comment on above: Performed By: #### L 500.4050, L503.6150, L503.0105, L506.0250, L100.0100, L500.4100, L501.9985, L503.6075, L503.6550, L506.1000 #### [facility] [address] [place], [place], [phone] (656) T PROT 7.7 g/dL Normal 5.9-8.4 [facility] Comment on above: Performed By: #### L 500.4050, L503.6150, L503.0105, L506.0250, L100.0100, L500.4100, L501.9985, L503.6075, L503.6550, L506.1000 #### [facility] [address] [facility] [place], [place], [phone] (376) Urea nitrogen [Mass/Vol] 19 mg/dL Normal 4-19 [facility] Comment on above: Performed By: #### L 500.4050, L503.6150, L503.0105, L506.0250, L100.0100, L500.4100, L501.9985, L503.6075, L503.6550, L506.1000 #### [facility] [address] [place], [address] Eosinophil percentageOrdered By: Kong Vieira on 10-28-2024 Eosinophils/100 WBC (Bld) 0.4 % 0-5 [facility] Erythrocyte Sed Rateon 10-28 SED RATE 22 mm/hr Normal 0-30 [facility] Comment on above: Performed By: #### L 500.4050, L503.6150, L503.0105, L506.0250, L100.0100, L500.4100, L501.9985, L503.6075, L503.6550, L506.1000 #### [facility] [address] [place], [address] Erythrocyte distribution wid th ratioOrdered By: Kong Vieira on 10-28-2024 Erythrocyte distribution width (RBC) [Ratio] 14.5 % 11.6-14.6 [facility] Erythrocyte distribution wid th standard deviationOrdered By: Kong Vieira on 10-28-2024 Erythrocyte distribution width (RBC) [Ratio] 46.7 fl High 35.1-43.9 [facility] Erythrocyte sedimentation ra teOrdered By: Kong Vieira on 10-28-2024 ESR (Bld) [Velocity] 22 mm/h 0-30 [facility] Ferritinon 10-28-2024 Ferritin [Mass/Vol] 21 ng/mL Low 22-378 [facility] Comment on above: Performed By: #### L 503.6550, L503.6150 #### [facility] [address] [place], [address] Gamma glutamyl transferase ( GGT) measurementOrdered By: Kong Vieira on 10-28-2024 Amylase [Catalytic activity/Vol] 18 U/L 0-60 [facility] Comment on above: Performed at: [address] [id number] Director: Han Das PhD, Phone: [phone] Glomerular filtration rate ( GFR) estimation/1.73 sq m using serum, plasma, or whole bOrdered By: Kong Vieira on 10-28-2024 GFR/1.73 sq M.predicted among non-blacks MDRD (S/P/Bld) [Vol rate/Area] 68 mL/min/{1.73_m2} >60 [facility] Comment on above: mL/min/1.73m2 CKD-EP I Creatinine Equation (2020) Hematocrit Auto (Bld) [Volum e fraction]Ordered By: Kong Vieira on 10-28-2024 Hematocrit (Bld) [Volume fraction] 38.5 % 37-47 [facility] Hemoglobin measurementOrdere d By: Kong Vieira on 10-28-2024 Hemoglobin (Bld) [Mass/Vol] 12.6 g/dL 12.0-15.0 [facility] Immature granulocytes/100 WB C Auto (Bld)Ordered By: Kong Vieira on 10-28-2024 Immature granulocytes/100 WBC (Bld) 0.400 % 0.0-0.9 [facility] Comment on above: IG% - Immature Granu locytes (promyelocytes, myelocytes and metamyelocytes) > 1% indicates that a LEFT SHIFT is Present. Interpretation of serum or p lasma protein pattern by immunofixation (narrative resultOrdered By: Kong Vieira on 10-28-2024 Protein Fractions Immunofixation Jose [Interp] Comment: g/dL Not Observed [facility] Comment on above: ASYMMETRICAL GAMMA Iron measurement (mass/mass) Ordered By: Kong Vieira on 10-28-2024 Iron (Unsp spec) [Mass/Mass] 37 ug/dL Low 50-170 [facility] Iron+Iron Binding Capacityon 10-28-2024 Iron [Mass/Vol] 37 ug/dL Low 50-170 [facility] Comment on above: Performed By: #### L 500.4050, L503.6150, L503.0105, L506.0250, L100.0100, L500.4100, L501.9985, L503.6075, L503.6550, L506.1000 #### [facility] [address] [place], [place], [address] UIBC 276 ug/dL Normal 228-428 [facility] Comment on above: Performed By: #### L 500.4050, L503.6150, L503.0105, L506.0250, L100.0100, L500.4100, L501.9985, L503.6075, L503.6550, L506.1000 #### [facility] [address] [place], [address] LDHon 10-28-2024 LDH 158 U/L Normal 84-246 [facility] Comment on above: Order Comment: Order Date: 08/30/23 Order Info: [id number] - CBCD Performed By: #### L 500.4050, L503.6150, L503.0105, L506.0250, L100.0100, L500.4100, L501.9985, L503.6075, L503.6550, L506.1000 #### [facility] [address] [place], [place], [address] Laboratory - Chemistry and C hemistry - challengeOrdered By: Kong Vieira on 10-28-2024 AST [Catalytic activity/Vol] 22 U/L <32 [facility] Lactate dehydrogenase (LDH) measurementOrdered By: Kong Vieira on 10-28-2024 LDH [Catalytic activity/Vol] 158 U/L 84-246 [facility] MCV (mean corpuscular volume ) determinationOrdered By: Kong Vieira on 10-28-2024 MCV (RBC) [Entitic vol] 88.3 fL 81-99 [facility] Magnesiumon 10-28-2024 Magnesium [Mass/Vol] 1.9 mg/dL Normal 1.5-2.2 [facility] Comment on above: Performed By: #### L 500.4050, L503.6150, L503.0105, L506.0250, L100.0100, L500.4100, L501.9985, L503.6075, L503.6550, L506.1000 #### [facility] [address] [place], [address] Magnesium measurement (mass/ volume)Ordered By: Kong Vieira on 10-28-2024 Magnesium (Unsp spec) [Mass/Vol] 1.9 mg/dL 1.5-2.2 [facility] Mean corpuscular hemoglobin (MCH) determinationOrdered By: Kong Vieira on 10-28-2024 MCH (RBC) [Entitic mass] 28.9 pg 27.0-32.0 [facility] Mean corpuscular hemoglobin concentration (MCHC) determinationOrdered By: Kong Vieira on 10-28-2024 MCHC (RBC) [Mass/Vol] 32.7 g/dL 32-36 [facility] Mean platelet volume determi nationOrdered By: Kong Vieira on 10-28-2024 Platelet mean volume (Bld) [Entitic vol] 10.5 fL 6.2-12.0 [facility] Monocyte percentageOrdered B y: Kong Vieira on 10-28-2024 Monocytes/100 WBC (Bld) 7.7 % 0-10 [facility] Neutrophil percentageOrdered By: Kong Vieira on 10-28-2024 Neutrophils/100 WBC (Bld) 68.2 % 47-70 [facility] No Panel InformationOrdered By: Kong Vieira on 10-28-2024 Addendum Document Comment . [facility] Comment on above: Protein electrophore sis scan will follow via computer,mail, or crusher dry ground mica delivery. Tissue Transglutaminase IgG Ab <2 U/mL 0-5 [facility] Comment on above: Negative 0 - 5 Weak Positive 6 - 9 Positive >9 Unsaturated Iron Binding Capacity 276 ug/dL 228-428 [facility] Nucleated red blood cell per centageOrdered By: Kong Vieira on 10-28-2024 Nucleated RBC/100 WBC (Bld) [Ratio] 0 % 0-5 [facility] Oncology Visit Reporton Oncology Visit Report [facility] [address] [place] [address] OFFICE VISIT Date of Service: 10/28/24 0900 MR#: [id number] Acct: [id number] Name: MARTHA FABIAN #: [id number] : 1955 From: Kong Vieira MD Age/Sex: 69/F Location: [facility] Status: Signed HPI Subjective Date of Service 10/28/24 Chief Complaint Wants evaluation for abnormal serum protein. History of Present Illness 69-year-old woman was found to have high IgM level with Slight increase in IgG serum light chains at [facility]. She does not want to go back to [facility] so comes in for further evaluation. She denies pain, fever, weight loss or night sweats. She has been found to have iron deficiency and currently taking oral iron. She had colonoscopy on 09/04/2024 which showed diverticulosis with stool in the colon. [facility] Medical History (Updated 10/31/24 @ 14:50 by [...] story dapagliflozin (more content not included)... Normal [facility] Phosphoruson 10-28-2024 Phosphate [Mass/Vol] 3.4 mg/dL Normal 2.7-4.5 [facility] Comment on above: Performed By: #### L 500.4050, L503.6150, L503.0105, L506.0250, L100.0100, L500.4100, L501.9985, L503.6075, L503.6550, L506.1000 #### [facility] [address] [place], [address] Platelet countOrdered By: Kanwal Vieira on 10-28-2024 Platelets (Bld) [#/Vol] 300 10*3/uL 150-450 [facility] Potassium measurement (mass/ volume)Ordered By: Kong Vieira on 10-28-2024 Potassium (Unsp spec) [Mass/Vol] 4.5 mmol/L 3.3-5.1 [facility] RBC Auto (Bld) [#/Vol]Ordere d By: Kong Vieira on 10-28-2024 RBC (Bld) [#/Vol] 4.36 10*6/uL 4.2-5.4 [facility] Retic Panelon 10-28-2024 IM RET FRACTION 13.60 Normal 3.00-15.90 [facility] Comment on above: Performed By: #### L 500.4050, L503.6150, L503.0105, L506.0250, L100.0100, L500.4100, L501.9985, L503.6075, L503.6550, L506.1000 #### [facility] [address] [place], [address] RET-HE 33.2 pg Normal 30-35 [facility] Comment on above: Performed By: #### L 500.4050, L503.6150, L503.0105, L506.0250, L100.0100, L500.4100, L501.9985, L503.6075, L503.6550, L506.1000 #### [facility] [address] [place], [address] Retic Count 1.75 High 0.5-1.5 [facility] Comment on above: Performed By: #### L 500.4050, L503.6150, L503.0105, L506.0250, L100.0100, L500.4100, L501.9985, L503.6075, L503.6550, L506.1000 #### [facility] [address] [place], [place], [address] Reticulocyte hemoglobin equi valent (RET-He) measurementOrdered By: Kong Vieira on 10-28-2024 Hemoglobin (Reticulocytes) [Entitic mass] 33.2 pg 30-35 [facility] Reticulocytes Auto (Bld) [#/ Vol]Ordered By: Kong Vieira on 10-28-2024 Reticulocytes/100 RBC (Bld) 1.75 % High 0.5-1.5 [facility] Serum creatinine measurement (mass/volume)Ordered By: Kong Vieira on 10-28-2024 Creatinine [Mass/Vol] 0.96 mg/dL 0.70-1.20 [facility] Comment on above: Previous reported re sult: 0.92 mg/dLEdited by: CELIO on 10/28/24:1215 AMENDED REPORT 10/28/24 1215 CREAT,SERUM previously reported as: 0.92 mg/dL Serum globulin measurementOr dered By: Kong Vieira on 10-28-2024 Globulin (S) [Mass/Vol] 3.1 g/dL 2.2-4.2 [facility] Serum globulin measurement ( mass/volume)Ordered By: Kong Vieira on 10-28-2024 Globulin (S) [Mass/Vol] 3.3 g/dL 2.2-3.9 [facility] Serum glucose measurement (m ass/volume)Ordered By: Kong Vieira on 10-28-2024 Glucose [Mass/Vol] 148 mg/dL High 70-99 [facility] Serum immunoglobulin kappa l ight chains/immunoglobulin lambda light chains mass ratioOrdered By: Kong Vieira on 10-28-2024 Immunoglobulin light chains.kappa/Immunoglobul in light chains.lambda (S) [Mass ratio] 1.03 0.26-1.65 [facility] Comment on above: Performed at: [address] [id number] Director: Han Das PhD, Phone: [phone] Serum or plasma C reactive p rotein measurement (mass/volume)Ordered By: Kong Vieira on 10-28-2024 CRP [Mass/Vol] mg/L 0.0-3.0 [facility] Serum or plasma IgA measurem ent (mass/volume)Ordered By: Kong Vieira on 10-28-2024 IgA [Mass/Vol] 176 mg/dL 87-352 [facility] IgA [Mass/Vol] 178 mg/dL 87-352 [facility] Serum or plasma IgG measurem ent (mass/volume)Ordered By: Kong Vieira on 10-28-2024 IgG [Mass/Vol] 789 mg/dL 586-1602 [facility] IgG [Mass/Vol] 772 mg/dL 586-1602 [facility] Serum or plasma alanine zhang otransferase (ALT) measurementOrdered By: Kong Vieira on 10-28-2024 ALT [Catalytic activity/Vol] 18 U/L <35 [facility] Serum or plasma albumin charlotte urement (mass/volume)Ordered By: Kong Vieira on 10-28-2024 Albumin [Mass/Vol] 4.6 g/dL 3.4-4.8 [facility] Serum or plasma albumin/glob ulin mass ratioOrdered By: Kong Vieira on 10-28-2024 Albumin/Globulin [Mass ratio] 1.5 {ratio} 0.9-2.4 [facility] Serum or plasma alkaline diana sphatase measurementOrdered By: Kong Vieira on 10-28-2024 ALP [Catalytic activity/Vol] 41 U/L 35-104 [facility] Comment on above: Previous reported re sult: 42 U/LEdited by: CELIO on 10/28/24:1215 AMENDED REPORT 10/28/24 1215 ALK P previously reported as: 42 U/L Serum or plasma alpha 1 glob ulin measurement by electrophoresis (mass/volume)Ordered By: Kong Vieira on 10-28-2024 Alpha 1 globulin Elph [Mass/Vol] 0.2 g/dL 0.0-0.4 [facility] Alpha 1 globulin Elph [Mass/Vol] 0.9 g/dL 0.4-1.0 [facility] Serum or plasma beta globuli n measurement by electrophoresis (mass/volume)Ordered By: Kong Vieira on 10-28-2024 Beta globulin Elph [Mass/Vol] 1.0 g/dL 0.7-1.3 [facility] Serum or plasma calcium charlotte urement (mass/volume)Ordered By: Kong Vieira on 10-28-2024 Calcium [Mass/Vol] 10.0 mg/dL 7.6-11.0 [facility] Comment on above: Previous reported re sult: 10.2 mg/dLEdited by: CEILO on 10/28/24:1215 AMENDED REPORT 10/28/24 1215 CA previously reported as: 10.2 mg/dL Serum or plasma ferritin mitzy surement (mass/volume)Ordered By: Kong Vieira on 10-28-2024 Ferritin [Mass/Vol] 21 ng/mL Low 22-378 [facility] Serum or plasma gamma globul in measurement by electrophoresis (mass/volume)Ordered By: Kong Vieira on 10-28-2024 Gamma globulin Elph [Mass/Vol] 1.1 g/dL 0.4-1.8 [facility] Serum or plasma immunoelectr ophoresis interpretation (nominal result)Ordered By: Kong Vieira on 10-28-2024 Interpretation IEP [Interp] Comment: . [facility] Comment on above: Presence of monoclon al protein is unclear at this time. Suggestrepeat in 3 to 6 months if clinically indicated. Serum or plasma immunoglobul in kappa light chains measurement (mass/volume)Ordered By: Kong Vieira on 10-28-2024 Immunoglobulin light chains.kappa [Mass/Vol] 30.9 mg/L High 3.3-19.4 [facility] Serum or plasma iron saturat ion measurement (mass fraction)Ordered By: Kong Vieira on 10-28-2024 Iron saturation [Mass fraction] 11.8 % Low 13-59 [facility] Comment on above: Previous reported re sult: 12.0 %Edited by: CELIO on 10/28/24:1218 AMENDED REPORT 10/28/24 1218 IRON SATURATION previously reported as: 12.0 L % Serum or plasma protein charlotte urement (mass/volume)Ordered By: Kong Vieira on 10-28-2024 Protein [Mass/Vol] 7.4 g/dL 6.0-8.5 [facility] Serum or plasma urea nitroge n measurement (mass/volume)Ordered By: Kong Vieira on 10-28-2024 Urea nitrogen [Mass/Vol] 19 mg/dL 4-19 [facility] Serum or plasma uric acid me asurement (mass/volume)Ordered By: Kong Vieira on 10-28-2024 Urate [Mass/Vol] 3.8 mg/dL 2.6-6.0 [facility] Comment on above: The drugs N-Acetylcy steine and Metamizole may falsely depress this assay. Serum tissue transglutaminas e (tTG) IgA antibody assay (units/volume)Ordered By: Kong Vieira on 10-28-2024 tTG IgA Qn (S) <2 U/mL 0-3 [facility] Comment on above: Negative 0 - 3 Weak Positive 4 - 10 Positive >10 Tissue Transglutaminase (tTG) has been identified as the endomysial antigen. Studies have demonstr- ated that endomysial IgA antibodies have over 99% specificity for gluten sensitive enteropathy. Sodium levelOrdered By: Chaim Vieira on 10-28-2024 Sodium [Moles/Vol] 140 mmol/L 133-145 [facility] Total proteinOrdered By: Temo Vieira on 10-28-2024 Protein [Mass/Vol] 7.7 g/dL 5.9-8.4 [facility] Uric Acidon 10-28-2024 URIC 3.8 mg/dL Normal 2.6-6.0 [facility] Comment on above: Result Comment: The drugs N-Acetylcysteine and Metamizole may falsely depress this assay. Performed By: #### L 503.6550, L503.6150 #### [facility] [address] [place], [address] Vitamin B12on 10-28-2024 Cobalamin (Vitamin B12) [Mass/Vol] 622 pg/mL Normal 180-914 [facility] Comment on above: Performed By: #### L 500.4050, L503.6150, L503.0105, L506.0250, L100.0100, L500.4100, L501.9985, L503.6075, L503.6550, L506.1000 #### [facility] [address] [place], [address] Vitamin B12 ser/plasOrdered By: Kong Allyson on 10-28-2024 Cobalamin (Vitamin B12) [Mass/Vol] 622 pg/mL 180-914 [facility] White blood cell (WBC) count Ordered By: Kong Dariel on 10-28-2024 WBC (Bld) [#/Vol] 9.5 10*3/uL 4.4-11.0 [facility] Hips B/L min 2 views w/ Pelv jennifer 10-25-2024 Hips B/L min 2 views w/ Pelvis [facility] [address] [place] [address] Hips B/L min 2 views w/ Pelvis MR#: [id number] Acct: [id number] Name: MARTHA FABIAN Rep #: [id number] : 1955 F 69 From: Jaydon Zarate MD PCP: Dr. Scott Steele MD Status: REG CLI Study: Hips B/L min 2 views w/ Pelvis Date of Exam: 0 10/25/24 Exam# [id number] Ordering Dr: Scott Steele MD EXAM: XR [...] with suggestion of avascular necrosis. Reading Location: [facility] CC: Dr. 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 Scott Steele MD Status: REG CLI Study: Lumbar Spine 2 or 3 Views Date of Exam: Exam# [id number] Ordering Dr: Scott Steele MD EXAM: XR [...] IMPRESSION: Degenerative changes as above. Reading Location: [facility] CC: Dr. Scott Steele MD Auto Mechanic Supervisor: Signed Normal [facility] Vitamin D 1,25-Dihydroxyon 0 10-12-2024 VIT D 1,25 DIHY 49.8 pg/mL Normal 24.8-81.5 [facility] Comment on above: Result Comment: Perf ormed at: - [facility] [id number] [employer] Advisor: Melissa Benavides MD, Phone: [phone] Performed By: #### L 503.7021, L560.2130 #### [facility] [address] [place], [place], [id number] Anion gap in Serum or Plasma Ordered By: Scott Steele on 10-09-2024 Anion gap [Moles/Vol] 14 mmol/L 5-15 [facility] BUN/creatinine ratioOrdered By: Scott Steele on 10-09-2024 Urea nitrogen/Creatinine [Mass ratio] 19.5 mg/mg 10-20 [facility] Bilirubin, totalOrdered By: Scott Steele on 10-09-2024 Bilirubin [Mass/Vol] 0.37 mg/dL 0.00-1.30 [facility] Calculated very low density lipoprotein (VLDL) cholesterol measurementOrdered By: Scott Steele on 10-09-2024 Calculated very low density lipoprotein (VLDL) cholesterol measurement 21 mg/dL 5-40 [facility] Carbon dioxide, total [Moles /volume] in Central venous bloodOrdered By: Scott Steele on 10-09-2024 CO2 [Moles/Vol] 25.7 mmol/L 21.0-32.0 [facility] Chloride assayOrdered By: Kanwal Steele on 10-09-2024 Chloride [Moles/Vol] 102 mmol/L 98-108 [facility] Comprehensive Metabolic Prof ilon 10-09-2024 Albumin [Mass/Vol] 4.9 g/dL High 3.4-4.8 [facility] Comment on above: Order Comment: DARRYL Performed By: #### L 5036550, L503.9350 #### [facility] [address] [place], [place], [address] Albumin/Globulin [Mass ratio] 1.4 {ratio} Normal 0.9-2.4 [facility] Comment on above: Order Comment: DARRYL Performed By: #### L 503.6550, L503.6150 #### [facility] [address] [place], [address] ALK PHOS 42 U/L Normal 35-104 [facility] Comment on above: Order Comment: DARRYL Performed By: #### L 503.6550, L503.6150 #### [facility] [address] [place], [address] ALT [Catalytic activity/Vol] 18 U/L Normal <=34 [facility] Comment on above: Order Comment: DARRYL Performed By: #### L 503.6550, L503.6150 #### [facility] [address] [place], [address] AST [Catalytic activity/Vol] 23 U/L Normal <=31 [facility] Comment on above: Order Comment: DARRYL Performed By: #### L 503.6550, L503.6150 #### [facility] [address] [place], [address] Bilirubin [Mass/Vol] 0.37 mg/dL Normal 0.00-1.30 [facility] Comment on above: Order Comment: DARRYL Performed By: #### L 503.6550, L503.6150 #### [facility] [address] [place], [address] BUN/CRE 19.5 RATIO Normal 10-20 [facility] Comment on above: Order Comment: DARRYL Performed By: #### L 503.6550, L503.6150 #### [facility] [address] [place], [address] Calcium [Mass/Vol] 10.2 mg/dL Normal 7.6-11.0 [facility] Comment on above: Order Comment: DARRYL Performed By: #### L 503.6550, L503.6150 #### [facility] [address] [place], [address] Chloride [Moles/Vol] 102 mmol/L Normal 98-108 [facility] Comment on above: Order Comment: DARRYL Performed By: #### L 503.6550, L503.6150 #### [facility] [address] [place], [address] CO2 [Moles/Vol] 25.7 mmol/L Normal 21.0-32.0 [facility] Comment on above: Order Comment: DARRYL Performed By: #### L 503.6550, L503.6150 #### [facility] [address] [place], [address] Creatinine [Mass/Vol] 0.86 mg/dL Normal 0.70-1.20 [facility] Comment on above: Order Comment: DARRYL Performed By: #### L 503.6550, L503.6150 #### [facility] [address] [place], [address] GAP 14 Normal 5-15 [facility] Comment on above: Order Comment: DARRYL Performed By: #### L 503.6550, L503.6150 #### [facility] [address] [place], [address] GFR/1.73 sq M.predicted among non-blacks MDRD (S/P/Bld) [Vol rate/Area] 74 mL/min/{1.73_m2} Normal >60 [facility] Comment on above: Order Comment: DARRYL Result Comment: mL/m in/1.73m2 CKD-EPI Creatinine Equation (2020) Performed By: #### L 503.6550, L503.6150 #### [facility] [address] [place], [address] Globulin (S) [Mass/Vol] 3.4 g/dL Normal 2.2-4.2 [facility] Comment on above: Order Comment: DARRYL Performed By: #### L 503.6550, L503.6150 #### [facility] [address] [place], [address] Glucose [Mass/Vol] 99 mg/dL Normal 70-99 [facility] Comment on above: Order Comment: DARRYL Performed By: #### L 503.6550, L503.6150 #### [facility] [address] [place], [address] Potassium [Moles/Vol] 4.3 mmol/L Normal 3.3-5.1 [facility] Comment on above: Order Comment: DARRYL Performed By: #### L 503.6550, L503.6150 #### [facility] [address] [place], [address] Sodium [Moles/Vol] 141 mmol/L Normal 133-145 [facility] Comment on above: Order Comment: DARRYL Performed By: #### L 503.6550, L503.6150 #### [facility] [address] [place], [address] T PROT 8.3 g/dL Normal 5.9-8.4 [facility] Comment on above: Order Comment: DARRYL Performed By: #### L 503.6550, L503.6150 #### [facility] [address] [place], [address] Urea nitrogen [Mass/Vol] 17 mg/dL Normal 4-19 [facility] Comment on above: Order Comment: DARRYL Performed By: #### L 503.6550, L503.6150 #### [facility] [address] [place], [address] Ferritinon 10-09-2024 Ferritin [Mass/Vol] 20 ng/mL Low 22-378 [facility] Comment on above: Performed By: #### L 503.6550, L503.6150 #### [facility] [address] [place], [address] Glomerular filtration rate ( GFR) estimation/1.73 sq m using serum, plasma, or whole bOrdered By: Scott Steele on 10-09-2024 GFR/1.73 sq M.predicted among non-blacks MDRD (S/P/Bld) [Vol rate/Area] 74 mL/min/{1.73_m2} >60 [facility] Comment on above: mL/min/1.73m2 CKD-EP I Creatinine Equation (2020) Hemoglobin A1con 10-09-2024 HbA1c (Bld) [Mass fraction] 6.8 % High <=5.6 [facility] Comment on above: Result Comment: Norm al < 5.7 % Prediabetic 5.7 - 6.4 % Diabetic >or= 6.5 % Please note range changes. Performed By: #### L 503.6550, L503.6150 #### [facility] [address] [place], [address] Hemoglobin A1c percentageOrd ered By: Scott Steele on 10-09-2024 HbA1c (Bld) [Mass fraction] 6.8 % High <5.7 [facility] Comment on above: Normal < 5.7 % Predi abetic 5.7 - 6.4 % Diabetic >or= 6.5 % Please note range changes. Iron measurement (mass/mass) Ordered By: Scott Steele on 10-09-2024 Iron (Unsp spec) [Mass/Mass] 47 ug/dL Low 50-170 [facility] Iron+Iron Binding Capacityon 10-09-2024 Iron [Mass/Vol] 47 ug/dL Low 50-170 [facility] Comment on above: Order Comment: DARRYL Performed By: #### L 503.6550, L503.6150 #### [facility] [address] [place], [address] IRON SATURATION 14.0 Normal 13-59 [facility] Comment on above: Order Comment: DARRYL Performed By: #### L 503.6550, L503.6150 #### [facility] [address] [place], [address] TIBC 335 ug/dL Normal 250-450 [facility] Comment on above: Order Comment: DARRYL Performed By: #### L 503.6550, L503.6150 #### [facility] [address] [place], [address] UIBC 288 ug/dL Normal 228-428 [facility] Comment on above: Order Comment: DARRYL Performed By: #### L 503.6550, L503.6150 #### [facility] [address] [place], [address] LDL calc ser/plasOrdered By: Scott Steele on 10-09-2024 Cholesterol in LDL [Mass/Vol] 72 mg/dL [facility] Comment on above: Mymlnxvcne=106-754 m g/dL & Higher Mlvp=852 mg/dL or greater Laboratory - Chemistry and C hemistry - challengeOrdered By: Scott Steele on 10-09-2024 AST [Catalytic activity/Vol] 23 U/L <32 [facility] Lipid Profileon 10-09-2024 CHOL:HDL 2.45 Normal [facility] Comment on above: Performed By: #### L 503.6550, L503.6150 #### [facility] [address] [place], [address] Cholesterol [Mass/Vol] 158 mg/dL Normal <=200 [facility] Comment on above: Result Comment: Chol esterol level, Desirable <200 mg/dL Borderline high cholesterol 200-239 mg/dL High cholesterol >=240 mg/dL Recommendations of the NCEP Adult Treatment Panel for the following risk-cutoff thresholds for the [place] population. Performed By: #### L 503.6550, L503.6150 #### [facility] [address] [place], [address] Cholesterol in HDL [Mass/Vol] 64 mg/dL Normal [facility] Comment on above: Result Comment: Mehreen onal Cholesterol Education Program (NCEP) guidelines: <40 mg/dL: Low HDL-cholesterol (major risk factor for CHD) >= 60 mg/dL: High HDL-cholesterol (negative risk factor for CHD) HDL-cholesterol is affected by a number of factors, e.g. smoking, exercise, hormones, sex and age. Performed By: #### L 503.6550, L503.6150 #### [facility] [address] [place], [address] Cholesterol in LDL [Mass/Vol] 72 mg/dL Normal [facility] Comment on above: Result Comment: Bord cynvjf=761-247 mg/dL Higher Lxbp=858 mg/dL or greater Performed By: #### L 503.6550, L503.6150 #### [facility] [address] [place], [address] Cholesterol in VLDL [Mass/Vol] 21 mg/dL Normal 5-40 [facility] Comment on above: Performed By: #### L 503.6550, L503.6150 #### [facility] [address] [place], [address] Triglyceride [Mass/Vol] 106 mg/dL Normal [facility] Comment on above: Result Comment: The drugs N-Acetylcysteine and Metamizole may falsely depress this assay. Normal range: <150 mg/dL Borderline High: 150-199 mg/dL High: 200-499 mg/dL Very High: >500 mg/dL Performed By: #### L 503.6550, L503.6150 #### [facility] [address] [place], [address] Microalb:Creat Ratio,Random URon 10-09-2024 Creatinine [Mass/Vol] 33.70 mg/dL Normal 28.00-217.00 [facility] Comment on above: Performed By: #### L 503.6550, L503.6150 #### [facility] [address] [place], [address] MALB:CREAT UNABLE TO CALCULATE Normal [facility] Comment on above: Performed By: #### L 503.6550, L503.6150 #### [facility] [address] [place], [address] MICROALBUMIN,UR < 12.0 Normal NO RANGE EST. [facility] Comment on above: Performed By: #### L 503.6550, L503.6150 #### [facility] [address] [place], [address] Microalbumin/creat ratio urO rdered By: Scott Steele on 10-09-2024 Urine microalbumin/creatinine ratio measurement UNABLE TO CALCULATE mg/g CRE [facility] No Panel InformationOrdered By: Scott Steele on 10-09-2024 Unsaturated Iron Binding Capacity 288 ug/dL 228-428 [facility] Potassium measurement (mass/ volume)Ordered By: Scott Steele on 10-09-2024 Potassium (Unsp spec) [Mass/Vol] 4.3 mmol/L 3.3-5.1 [facility] Random urine creatinine charlotte urement (mass/volume)Ordered By: Scott Steele on 10-09-2024 Creatinine Unsp time (U) [Mass/Vol] 33.70 mg/dL 28.00-217.00 [facility] Screening total cholesterol/ high density lipoprotein (HDL) cholesterol ratioOrdered By: Scott Steele on 10-09-2024 Cholesterol.total/Cholest anila in HDL [Mass ratio] 2.45 {ratio} [facility] Serum creatinine measurement (mass/volume)Ordered By: Scott Steele on 10-09-2024 Creatinine [Mass/Vol] 0.86 mg/dL 0.70-1.20 [facility] Serum globulin measurementOr dered By: Scott Steele on 10-09-2024 Globulin (S) [Mass/Vol] 3.4 g/dL 2.2-4.2 [facility] Serum glucose measurement (m ass/volume)Ordered By: Scott Steele on 10-09-2024 Glucose [Mass/Vol] 99 mg/dL 70-99 [facility] Serum or plasma alanine zhang otransferase (ALT) measurementOrdered By: Scott Steele on 10-09-2024 ALT [Catalytic activity/Vol] 18 U/L <35 [facility] Serum or plasma albumin charlotte urement (mass/volume)Ordered By: Scott Steele on 10-09-2024 Albumin [Mass/Vol] 4.9 g/dL High 3.4-4.8 [facility] Serum or plasma albumin/glob ulin mass ratioOrdered By: Scott Steele on 10-09-2024 Albumin/Globulin [Mass ratio] 1.4 {ratio} 0.9-2.4 [facility] Serum or plasma alkaline diana sphatase measurementOrdered By: Scott Steele on 10-09-2024 ALP [Catalytic activity/Vol] 42 U/L 35-104 [facility] Serum or plasma calcitriol m easurement (mass/volume)Ordered By: Scott Steele on 10-09-2024 1,25-dihydroxyvitamin D3 [Mass/Vol] 49.8 pg/mL 24.8-81.5 [facility] Comment on above: Performed at: [address] [id number] Director: Melissa Benavides MD, Phone: [phone] Serum or plasma calcium charlotte urement (mass/volume)Ordered By: Scott Steele on 10-09-2024 Calcium [Mass/Vol] 10.2 mg/dL 7.6-11.0 [facility] Serum or plasma cholesterol in HDL measurement (mass/volume)Ordered By: Scott Steele on 10-09-2024 Cholesterol in HDL [Mass/Vol] 64 mg/dL >40 [facility] Comment on above: National Cholesterol Education Program (NCEP) guidelines:<40 mg/dL: Low HDL-cholesterol (major risk factor for CHD)>= 60 mg/dL: High HDL-cholesterol (negative risk factor for CHD)HDL-cholesterol is affected by a number of factors, e.g. smoking, exercise, hormones, sex and age. Serum or plasma cholesterol measurement (mass/volume)Ordered By: Scott Steele on 10-09-2024 Cholesterol [Mass/Vol] 158 mg/dL <201 [facility] Comment on above: Cholesterol level, D esirable <200 mg/dLBorderline high cholesterol 200-239 mg/dLHigh cholesterol >=240 mg/dLRecommendations of the NCEP Adult Treatment Panel for the following risk-cutoff thresholds for the [place] population. Serum or plasma ferritin mitzy surement (mass/volume)Ordered By: Scott Steele on 10-09-2024 Ferritin [Mass/Vol] 20 ng/mL Low 22-378 [facility] Serum or plasma iron saturat ion measurement (mass fraction)Ordered By: Scott Steele on 10-09-2024 Iron saturation [Mass fraction] 14.0 % 13-59 [facility] Serum or plasma urea nitroge n measurement (mass/volume)Ordered By: Scott Steele on 10-09-2024 Urea nitrogen [Mass/Vol] 17 mg/dL 4-19 [facility] Sodium levelOrdered By: Scott Steele on 10-09-2024 Sodium [Moles/Vol] 141 mmol/L 133-145 [facility] Total proteinOrdered By: Syed Steele on 10-09-2024 Protein [Mass/Vol] 8.3 g/dL 5.9-8.4 [facility] Triglycerides measurementOrd ered By: Scott Steele on 10-09-2024 Triglyceride [Mass/Vol] 106 mg/dL <199 [facility] Comment on above: The drugs N-Acetylcy steine and Metamizole may falsely depress this assay. Normal range: <150 mg/dLBorderline High: 150-199 mg/dLHigh: 200-499 mg/dLVery High: >500 mg/dL Urine albumin measurement [facility] detection limit of 20 mg/L or less (mass/volume)Ordered By: Scott Steele on 10-09-2024 Albumin DL <= 20 mg/L (U) [Mass/Vol] < 12.0 mg/L NO RANGE EST. [facility] Vitamin B12on 10-09-2024 Cobalamin (Vitamin B12) [Mass/Vol] 561 pg/mL Normal 180-914 [facility] Comment on above: Performed By: #### L 503.6550, L503.6150 #### [facility] [address] [place] [address]. [place], [place], [id number] Vitamin B12 ser/plasOrdered By: Scott Steele on 10-09-2024 Cobalamin (Vitamin B12) [Mass/Vol] 561 pg/mL 180-914 [facility] Basic metabolic 2000 panelon 10-04-2024 Anion gap [Moles/Vol] 14 mmol/L Normal 8-15 [facility] Comment on above: Order Comment: Speci men Type: BLOOD SPECIMEN Ordering Facility: [facility] Address: [address] [place] [address] Performed By: #### 2 4321-2 #### [facility] CLIA [id number] [address] [place] [address] [place] Calcium [Mass/Vol] 9.7 mg/dL Normal 8.5-10.2 [facility] Comment on above: Order Comment: Speci men Type: BLOOD SPECIMEN Ordering Facility: [facility] Address: [address] [place] [address] Performed By: #### 2 4321-2 #### [facility] CLIA [id number] [address] [place] [address] [place] Chloride [Moles/Vol] 101 mmol/L Normal 98-107 [facility] Comment on above: Order Comment: Speci men Type: BLOOD SPECIMEN Ordering Facility: [facility] Address: [address] [place], [place] [address] Performed By: #### 2 4321-2 #### [id number] [address] [place] [address] [place] CO2 [Moles/Vol] 23 mmol/L Normal 22-30 [facility] Comment on above: Order Comment: Speci men Type: BLOOD SPECIMEN Ordering Facility: [facility] Address: [address] [place] [address] Performed By: #### 2 4321-2 #### [facility] [id number] [address] [place] [address] [place] Creatinine [Mass/Vol] 0.90 mg/dL Normal 0.58-0.96 [facility] Comment on above: Order Comment: Speci men Type: BLOOD SPECIMEN Ordering Facility: [facility] Address: [address] [place] [address] Performed By: #### 2 4321-2 #### [facility] CLIA [id number] [address] [place] [address] [place] Creatinine and Glomerular filtration rate.predicted panel (S/P/Bld) 70 mL/min/1.73m??? Normal >=60 [facility] Comment on above: Order Comment: Sulma ho Type: BLOOD SPECIMEN Ordering Facility: [facility] Address: [address] [place] [address] Result Comment: Keke mated Glomerular Filtration Rate [...] GFR. Performed By: #### 2 4321-2 #### [facility] [id number] [address] [place] [address] [place] Glucose [Mass/Vol] 111 mg/dL High 74-99 [facility] Comment on above: Order Comment: Sulma ho Type: BLOOD SPECIMEN Ordering Facility: [facility] Address: [address] [place] [address] Result Comment: [place] Diabetes Association (ADA) provides guidance for cutoff [...] Standards of Medical Care in Diabetes 2016, [place] Diabetes Association. Diabetes Care. 2016.39(Suppl 1). Performed By: #### 2 4321-2 #### [facility] [id number] [address] [place] [address] [place] Potassium [Moles/Vol] 4.2 mmol/L Normal 3.7-5.1 [facility] Comment on above: Order Comment: Sulma ho Type: BLOOD SPECIMEN Ordering Facility: [facility] Address: [address] [place] [address] Performed By: #### 2 4321-2 #### [facility] CLIA [id number] [address] [place] [address] [place] Sodium [Moles/Vol] 138 mmol/L Normal 136-144 [facility] Comment on above: Order Comment: Speci men Type: BLOOD SPECIMEN Ordering Facility: [facility] Address: [address] [place] [address] Performed By: #### 2 4321-2 #### [facility] CLIA [id number] [address] [place] [address] [place] Urea nitrogen [Mass/Vol] 17 mg/dL Normal 7-21 [facility] Comment on above: Order Comment: Speci men Type: BLOOD SPECIMEN Ordering Facility: [facility] Address: [address] [place] [address] Performed By: #### 2 4321-2 #### [facility] CLIA [id number] [address] [place] [address] [place] CBC W Auto Differential pane l (Bld)on 10-04-2024 Basophils (Bld) [#/Vol] 0.06 10*3/uL Normal <0.11 [facility] Comment on above: Order Comment: Speci men Type: URINE SPECIMEN Ordering Facility: [facility] Address: [address] [place] [address] Performed By: #### L [id number] #### [facility] CLIA [id number] [address] [place] [address] [place] Basophils/100 WBC (Bld) 0.9 % Normal [facility] Comment on above: Order Comment: Speci men Type: URINE SPECIMEN Ordering Facility: [facility] Address: [address] [place] [address] Performed By: #### L [id number] #### [facility] CLIA [id number] [address] [place], [place] [id number] [place] Differential cell count method Nom (Bld) Auto Normal [facility] Comment on above: Order Comment: Speci men Type: URINE SPECIMEN Ordering Facility: [facility] Address: [address] [place] [address] Performed By: #### L [id number] #### [facility] CLIA [id number] [address] [place] [address] [place] Eosinophils (Bld) [#/Vol] 0.09 10*3/uL Normal <0.46 [facility] Comment on above: Order Comment: Speci men Type: URINE SPECIMEN Ordering Facility: [facility] Address: [address] [place] [address] Performed By: #### L [id number] #### [facility] CLIA [id number] [address] [place] [address] [place] Eosinophils/100 WBC (Bld) 1.4 % Normal [facility] Comment on above: Order Comment: Speci men Type: URINE SPECIMEN Ordering Facility: [facility] Address: [address] [place] [address] Performed By: #### L [id number] #### [facility] CLIA [id number] [address] [place] [address] [place] Erythrocyte distribution width (RBC) [Ratio] 14.4 % Normal 11.5-15.0 [facility] Comment on above: Order Comment: Speci men Type: URINE SPECIMEN Ordering Facility: [facility] Address: [address] [place] [address] Performed By: #### L [id number] #### [facility] CLIA [id number] [address] [place] [address] [place] Hematocrit (Bld) [Volume fraction] 37.7 % Normal 36.0-46.0 [facility] Comment on above: Order Comment: Speci men Type: URINE SPECIMEN Ordering Facility: [facility] Address: [address] [place] [address] Performed By: #### L [id number] #### [facility] CLIA [id number] [address] [place] [address] [place] Hemoglobin (Bld) [Mass/Vol] 12.3 g/dL Normal 11.5-15.5 [facility] Comment on above: Order Comment: Speci men Type: URINE SPECIMEN Ordering Facility: [facility] Address: [address] [place] [address] Performed By: #### L [id number] #### [facility] CLIA [id number] [address] [place] [address] [place] Immature granulocytes (Bld) [#/Vol] 0.03 10*3/uL Normal <0.10 [facility] Comment on above: Order Comment: Speci men Type: URINE SPECIMEN Ordering Facility: [facility] Address: [address] [place] [address] Performed By: #### L [id number] #### [facility] CLIA [id number] [address] [place] [address] [place] Immature granulocytes/100 WBC (Bld) 0.5 % Normal [facility] Comment on above: Order Comment: Speci men Type: URINE SPECIMEN Ordering Facility: [facility] Address: [address] [place] [address] Performed By: #### L [id number] #### [facility] CLIA [id number] [address] [place] [address] [place] Lymphocytes (Bld) [#/Vol] 2.31 10*3/uL Normal 1.00-4.0 0 [facility] Comment on above: Order Comment: Speci men Type: URINE SPECIMEN Ordering Facility: [facility] Address: [address] [place] [address] Performed By: #### L [id number] #### [facility] CLIA [id number] [address] [place] [address] [place] Lymphocytes/100 WBC (Bld) 34.7 % Normal [facility] Comment on above: Order Comment: Speci men Type: URINE SPECIMEN Ordering Facility: [facility] Address: [address] [place] [address] Performed By: #### L [id number] #### [facility] CLIA [id number] [address] [place] [address] [place] MCH (RBC) [Entitic mass] 28.7 pg Normal 26.0-34.0 [facility] Comment on above: Order Comment: Speci men Type: URINE SPECIMEN Ordering Facility: [facility] Address: [address] [place] [address] Performed By: #### L [id number] #### [facility] CLIA [id number] [address] [place] [address] [place] MCHC (RBC) [Mass/Vol] 32.6 g/dL Normal 30.5-36.0 [facility] Comment on above: Order Comment: Speci men Type: URINE SPECIMEN Ordering Facility: [facility] Address: [address] [place] [address] Performed By: #### L [id number] #### [facility] CLIA [id number] [address] [place] [address] [place] MCV (RBC) [Entitic vol] 88.1 fL Normal 80.0-100.0 [facility] Comment on above: Order Comment: Speci men Type: URINE SPECIMEN Ordering Facility: [facility] Address: [address] [place] [address] Performed By: #### L [id number] #### [facility] CLIA [id number] [address] [place] [address] [place] Monocytes (Bld) [#/Vol] 0.56 10*3/uL Normal <0.87 [facility] Comment on above: Order Comment: Speci men Type: URINE SPECIMEN Ordering Facility: [facility] Address: [address] [place] [address] Performed By: #### L [id number] #### [facility] CLIA [id number] [address] [place] [address] [place] Monocytes/100 WBC (Bld) 8.4 % Normal [facility] Comment on above: Order Comment: Speci men Type: URINE SPECIMEN Ordering Facility: [facility] Address: [address] [place] [address] Performed By: #### L [id number] #### [facility] CLIA [id number] [address] [place] [address] [place] Neutrophils (Bld) [#/Vol] 3.60 10*3/uL Normal 1.45-7.5 0 [facility] Comment on above: Order Comment: Speci men Type: URINE SPECIMEN Ordering Facility: [facility] Address: [address] [place] [address] Performed By: #### L [id number] #### [facility] CLIA [id number] [address] [place] [address] [place] Neutrophils/100 WBC (Bld) 54.1 % Normal [facility] Comment on above: Order Comment: Speci men Type: URINE SPECIMEN Ordering Facility: [facility] Address: [address] [place] [address] Performed By: #### L [id number] #### [facility] CLIA [id number] [address] [place] [address] [place] Nucleated RBC (Bld) [#/Vol] 10*3/uL Normal <0.01 [facility] Comment on above: Order Comment: Speci men Type: URINE SPECIMEN Ordering Facility: [facility] Address: [address] [place] [address] Performed By: #### L [id number] #### [facility] CLIA [id number] [address] [place] [address] [place] Nucleated RBC/100 WBC (Bld) [Ratio] 0.0 /100 WBC Normal [facility] Comment on above: Order Comment: Speci men Type: URINE SPECIMEN Ordering Facility: [facility] Address: [address] [place] [address] Performed By: #### L [id number] #### [facility] CLIA [id number] [address] [place] [address] [place] Platelet mean volume (Bld) [Entitic vol] 10.6 fL Normal 9.0-12.7 [facility] Comment on above: Order Comment: Speci men Type: URINE SPECIMEN Ordering Facility: [facility] Address: [address] [place] [address] Performed By: #### L [id number] #### [facility] CLIA [id number] [address] [place] [address] [place] Platelets (Bld) [#/Vol] 253 10*3/uL Normal 150-400 [facility] Comment on above: Order Comment: Speci men Type: URINE SPECIMEN Ordering Facility: [facility] Address: [address] [place] [address] Performed By: #### L [id number] #### [facility] CLIA [id number] [address] [place] [address] [place] RBC (Bld) [#/Vol] 4.28 10*6/uL Normal 3.90-5.20 [facility] Comment on above: Order Comment: Speci men Type: URINE SPECIMEN Ordering Facility: [facility] Address: [address] [place] [address] Performed By: #### L [id number] #### [facility] CLIA [id number] [address] [place] [address] [place] WBC (Bld) [#/Vol] 6.65 10*3/uL Normal 3.70-11.00 [facility] Comment on above: Order Comment: Speci men Type: URINE SPECIMEN Ordering Facility: [facility] Address: [address] [place] [address] Performed By: #### L [id number] #### [facility] CLIA [id number] [address] [place] [address] [place] IMMUNOFIXATION SCREEN, SERUM on 10-04-2024 [...] monoclonal gammopathy. Clinical correlation is necessary. Normal [facility] Comment on above: Order Comment: Speci men Type: BLOOD SPECIMEN Ordering Facility: [facility] Address: [address] [place] [address] Performed By: #### I FESC #### [facility] CLIA [id number] [address] [place] [address] MPA RESULT A poorly defined reg ion of restricted mobility is present that may represent an M protein. Abnormal No M protein is identified. [facility] Comment on above: Order Comment: Speci men Type: BLOOD SPECIMEN Ordering Facility: [facility] Address: [address] [place] [address] Performed By: #### I FESC #### [facility] CLIA [id number] [address] [place] [address] [place] STAFF REVIEW (MPA) Reviewed by Zulma Hugo MD Normal [facility] Comment on above: Order Comment: Speci men Type: BLOOD SPECIMEN Ordering Facility: [facility] Address: [address] [place] [address] Performed By: #### I FESC #### [facility] CLIA [id number] [address] [place] [address] [place] IMMUNOGLOBULINS,IGG,IGA,IGMo n 10-04-2024 IgA [Mass/Vol] 174 mg/dL Normal 70-400 [facility] Comment on above: Order Comment: Speci men Type: BLOOD SPECIMEN Ordering Facility: [facility] Address: [address] [place] [address] Performed By: #### S ERIMM #### [facility] CLIA [id number] [address] [place] [address] [place] IgG [Mass/Vol] 804 mg/dL Normal 700-1600 [facility] Comment on above: Order Comment: Speci men Type: BLOOD SPECIMEN Ordering Facility: [facility] Address: [address] [place] [address] Performed By: #### S ERIMM #### [facility] CLIA [id number] [address] [place] [address] [place] IgM [Mass/Vol] 602 mg/dL High 40-230 [facility] Comment on above: Order Comment: Speci men Type: BLOOD SPECIMEN Ordering Facility: [facility] Address: [address] [place] [address] Performed By: #### S ERIMM #### [facility] CLIA [id number] [address] [place] [address] [place] KAPPA/LA,FREE,SERon 2024 Immunoglobulin light chains.kappa.free (S) [Mass/Vol] 37.5 mg/L High 3.3-19.4 [facility] Comment on above: Order Comment: Speci men Type: URINE SPECIMEN Ordering Facility: [facility] Address: [address] [place] [address] Result Comment: Rare ly, increased serum free light chains levels may not be detected or accurately quantified due to prozone phenomenon or in high viscosity samples using this immunoturbidimetric assay. Correlation with other laboratory results and clinical findings is recommended. The [place] Free Light Chain was performed using the Binding Site Optilite immunoturbidimetric method. Result obtained with different assay methods or kits cannot be used interchangeably. Performed By: #### L [id number] #### [facility] CLIA [id number] [address] [place] [address] [place] Immunoglobulin light chains.kappa/Immunoglobul in light chains.lambda (S) [Mass ratio] 1.38 Normal 0.26-1.65 [facility] Comment on above: Order Comment: Speci men Type: URINE SPECIMEN Ordering Facility: [facility] Address: [address] [place] [address] Performed By: #### L [id number] #### [facility] CLIA [id number] [address] [place] [address] [place] Immunoglobulin light chains.lambda.free [Mass/Vol] 27.1 mg/L High 5.7-26.3 [facility] Comment on above: Order Comment: Speci men Type: URINE SPECIMEN Ordering Facility: [facility] Address: [address] [place] [address] Result Comment: Rare ly, increased serum free [...] be used interchangeably. Performed By: #### L [id number] #### [facility] CLIA [id number] [address] [place] [address] [place] PROTEIN ELECTROPHORESIS SERU M (P)on 10-04-2024 Albumin [Mass/Vol] 4.59 g/dL Normal 3.43-5.41 [facility] Comment on above: Order Comment: Speci men Type: BLOOD SPECIMEN Ordering Facility: [facility] Address: [address] [place] [address] Performed By: #### L [id number] #### [facility] CLIA [id number] [address] [place] [address] [place] Alpha 1 globulin Elph [Mass/Vol] 0.27 g/dL Normal 0.18-0.43 [facility] Comment on above: Order Comment: Speci men Type: BLOOD SPECIMEN Ordering Facility: [facility] Address: [address] [place] [address] Performed By: #### L [id number] #### [facility] CLIA [id number] [address] [place] [address] [place] Alpha 2 globulin Elph [Mass/Vol] 0.74 g/dL Normal 0.42-0.98 [facility] Comment on above: Order Comment: Speci men Type: BLOOD SPECIMEN Ordering Facility: [facility] Address: [address] [place] [address] Performed By: #### L [id number] #### [facility] CLIA [id number] [address] [place] [address] [place] Beta globulin Elph [Mass/Vol] 0.87 g/dL Normal 0.61-1.17 [facility] Comment on above: Order Comment: Speci men Type: BLOOD SPECIMEN Ordering Facility: [facility] Address: [address] [place] [address] Performed By: #### L [id number] #### [facility] CLIA [id number] [address] [place] [address] [place] Gamma globulin Elph [Mass/Vol] 0.94 g/dL Normal 0.53-1.51 [facility] Comment on above: Order Comment: Speci men Type: BLOOD SPECIMEN Ordering Facility: [facility] Address: [address] [place] [address] Performed By: #### L [id number] #### [facility] CLIA [id number] [address] [place] [address] [place] M-PROTEIN LOCATION Normal [facility] Comment on above: Order Comment: Speci men Type: BLOOD SPECIMEN Ordering Facility: [facility] Address: [address] [place] [address] Result Comment: Not Applicable. Performed By: #### L [id number] #### [facility] CLIA [id number] [address] [place] [address] [place] Protein Fractions [Interp] No definitive M protein is identified on protein electrophoresis. Normal No definitive M protein is identified on protein electrophore sis. [facility] Comment on above: Order Comment: Speci men Type: BLOOD SPECIMEN Ordering Facility: [facility] Address: [address] [place] [address] Performed By: #### L [id number] #### [facility] CLIA [id number] [address] [place] [address] [place] Protein.monoclonal Elph [Mass/Vol] 0.00 g/dL Normal <=0.00 [facility] Comment on above: Order Comment: Speci men Type: BLOOD SPECIMEN Ordering Facility: [facility] Address: [address] [place] [address] Performed By: #### L [id number] #### [facility] CLIA [id number] [address] [place] [address] [place] SPE STAFF REVIEW Reviewed by Zulma Hugo MD Normal [facility] Comment on above: Order Comment: Speci men Type: BLOOD SPECIMEN Ordering Facility: [facility] Address: [address] [place] [address] Performed By: #### L [id number] #### [facility] CLIA [id number] [address] [place] [address] [place] Prot SerPl-mCncon 10-04-2024 Protein [Mass/Vol] 7.4 g/dL Normal 6.3-8.0 [facility] Comment on above: Order Comment: Speci men Type: BLOOD SPECIMEN Ordering Facility: [facility] Address: [address] [place] [address] Performed By: #### 2 885-2 #### [facility] CLIA [id number] [address] [place], [place] [address] [address] [place] Bedside Glucoseon 09-04-2024 FINGERSTICK GLU 117 mg/dL High 74-106 [facility] Comment on above: Result Comment: MARC CASPER OF PATIENT CARE PER NURSING PROTOCOL Performed By: #### L 503.6550, L503.6150 #### [facility] [address] [place], [address] Colonoscopy Reporton 025 Colonoscopy Report [facility] Medical Records Department [address] [place] [address] Colonoscopy Report MR#: [id number] Acct: [id number] Name: MARTHA FABIAN Rep #: [id number] : 1955 69 From: Karri Banegas DO [...] was poor. Procedure Code(s): --- Professional --- 73789, 53, Colonoscopy, flexible; diagnostic, including collection of specimen(s) by brushing or washing, when performed (separate procedure) CPT copyright 2021 [employer] [employer]. All rights reserved. The codes documented in this report are preliminary and upon structures assembler review may be revised to meet current compliance requirements. Karri Banegas DO 09/04/2024 11:08:30 AM This report has been signed electronically. Number of Addenda: 0 Note Initiated On: 09/04/2024 10:46 AM 09/04/24 1108 Date Karri Mattson Signature: Date (if indicated) CC: Dr. Scott Steele MD; Karri Banegas DO Date Dictated: 09/04/24 1046 Date Transcribed: Auto Mechanic Supervisor: RF Signed Normal [facility] Glucose [facility] at [facility] deOrdered By: Karri Banegas on 09-04-2024 Bedside Glucose (Misc Panel) 117 mg/dL High 74-106 [facility] Comment on above: MANAGEMENT OF PATIEN T CARE PER NURSING PROTOCOL Glucose [Mass/Vol] 117 mg/dL High 74-106 [facility] Comment on above: MANAGEMENT OF PATIEN T CARE PER NURSING PROTOCOL MR/POSTOP.ANEon 09-04-2024 MR/POSTOP.[facility] Medical Records Department [address] [place] [address] Anesthesia Postop Eval I 09/04/24 1112 MR#: [id number] Acct: [id number] Name: MARTHA FABIAN Rep #: [id number] : 1955 69 From: Tab Interiano PCP: Dr. Scott Steele MD Status:REG SDC Y Race: C Location: [place] [address] Anesthesia: Postop Eval I Current Vital Signs [...] Tab Branch Signature: Date CC: Signed Normal [facility] MR/[id number] 09-04-2024 MR/POSTOPAN2 [facility] Medical Records Department [address] [place] [address] Anesthesia Postop Eval II 09/04/24 1126 MR#: [id number] Acct: [id number] Name: MARTHA FABIAN Rep #: [id number] : 1955 69 From: Dennis Chandler MD PCP: Dr. Scott Steele MD Status:REG SDC Y Race: C Location: [place] [address] Anesthesia Postop Eval I Sum Postop Eval [...] Level: 0 nausea: No Vomiting: No 09/04/24 112 Date Dennis Chandler MD Cosigner Signature: Date CC: Signed Normal [facility] Gastroenterology Visit Repor ton 06-28-2024 Gastroenterology Visit Report [facility] Gastroenterology [address] [place] [address] OFFICE VISIT Date of Service: 06/28/24 MR#: [id number] Acct: [id number] Name: MARTHA FAIBAN Rep #: [id number] : 1955 Provider: Karri Banegas DO Age/Sex: 68/F Location: [facility] Status: Signed Intake Intake Visit Reasons: [...] 06/28/24 @ 12:[address] Zeng Friend, ) Anemia Constipation Diarrhea Hemorrhoids Nausea Abdominal pain [...] Plan: She (more content not included)... Normal [facility] CBC W/Diff, Automatedon 04-21 0-2023 Absolute Lymph 2.03 X10 3/uL Normal 0.83-4.51 [facility] Comment on above: Order Comment: Order Date: 01/18/24Order Info: 0184-1 - CBCD Performed By: #### L 503.6075, L501.9985, L506.1000, L503.0105, L500.4050, L500.4100, L100.0100, L503.6550, L502.0250, L503.6150 ####[facility] [address] [facility] [place], [place], [phone](238) Absolute Neut 4.4 X10 3/uL Normal 2.0-7.7 [facility] Comment on above: Order Comment: Order Date: 01/18/24Order Info: 0184-1 - CBCD Performed By: #### L 503.6075, L501.9985, L506.1000, L503.0105, L500.4050, L500.4100, L100.0100, L503.6550, L502.0250, L503.6150 ####[facility] [address] [facility] [place], [place], [phone](914) Basophils/100 WBC (Bld) 0.8 % Normal 0-1 [facility] Comment on above: Order Comment: Order Date: 01/18/24Order Info: 0184-1 - CBCD Performed By: #### L 503.6075, L501.9985, L506.1000, L503.0105, L500.4050, L500.4100, L100.0100, L503.6550, L502.0250, L503.6150 ####[facility] [address] [place], [place], [phone](587) Eosinophils/100 WBC (Bld) 1.2 % Normal 0-5 [facility] Comment on above: Order Comment: Order Date: 01/18/24Order Info: 018- - CBCD Performed By: #### L 503.6075, L501.9985, L506.1000, L503.0105, L500.4050, L500.4100, L100.0100, L503.6550, L502.0250, L503.6150 ####[facility] [address] [facility] [place], [place], [phone](298) Erythrocyte distribution width (RBC) [Ratio] 14.7 % High 11.6-14.6 [facility] Comment on above: Order Comment: Order Date: 01/18/24Order Info: 018- - CBCD Performed By: #### L 503.6075, L501.9985, L506.1000, L503.0105, L500.4050, L500.4100, L100.0100, L503.6550, L502.0250, L503.6150 ####[facility] [address] [place], [place], [phone]) Hematocrit (Bld) [Volume fraction] 41.1 % Normal 37-47 [facility] Comment on above: Order Comment: Order Date: 01/18/24Order Info: 018- - CBCD Performed By: #### L 503.6075, L501.9985, L506.1000, L503.0105, L500.4050, L500.4100, L100.0100, L503.6550, L502.0250, L503.6150 ####[facility] [address] [place], [address] Hemoglobin (Bld) [Mass/Vol] 13.2 g/dL Normal 12.0-15.0 [facility] Comment on above: Order Comment: Order Date: 01/18/24Order Info: 018- - CBCD Performed By: #### L 503.6075, L501.9985, L506.1000, L503.0105, L500.4050, L500.4100, L100.0100, L503.6550, L502.0250, L503.6150 ####[facility] [address] [place], [address] IG% 0.700 Normal 0.0-0.9 [facility] Comment on above: Order Comment: Order Date: 01/18/24Order Info: 183- - CBCD Result Comment: IG% - Immature Granulocytes (promyelocytes, myelocytes and metamyelocytes) > 1% indicates that a LEFT SHIFT is Present. Performed By: #### L 503.6075, L501.9985, L506.1000, L503.0105, L500.4050, L500.4100, L100.0100, L503.6550, L502.0250, L503.6150 ####[facility] [address] [place], [address] Lymphocytes/100 WBC (Bld) 28.1 % Normal 19-41 [facility] Comment on above: Order Comment: Order Date: 01/18/24Order Info: 018-1 - CBCD Performed By: #### L 503.6075, L501.9985, L506.1000, L503.0105, L500.4050, L500.4100, L100.0100, L503.6550, L502.0250, L503.6150 ####[facility] [address] [place], [address] MCH (RBC) [Entitic mass] 28.4 pg Normal 27.0-32.0 [facility] Comment on above: Order Comment: Order Date: 01/18/24Order Info: 018- - CBCD Performed By: #### L 503.6075, L501.9985, L506.1000, L503.0105, L500.4050, L500.4100, L100.0100, L503.6550, L502.0250, L503.6150 ####[facility] [address] [place], [address] MCHC (RBC) [Mass/Vol] 32.1 g/dL Normal 32-36 [facility] Comment on above: Order Comment: Order Date: 01/18/24Order Info: 183- - CBCD Performed By: #### L 503.6075, L501.9985, L506.1000, L503.0105, L500.4050, L500.4100, L100.0100, L503.6550, L502.0250, L503.6150 ####[facility] [address] [place], [address] MCV (RBC) [Entitic vol] 88.6 fL Normal 81-99 [facility] [facility] [place] Comment on above: Order Comment: Order Date: 01/18/24Order Info: 018- - CBCD Performed By: #### L 503.6075, L501.9985, L506.1000, L503.0105, L500.4050, L500.4100, L100.0100, L503.6550, L502.0250, L503.6150 ####[facility] [address] [place], [address] Monocytes/100 WBC (Bld) 8.4 % Normal 0-10 [facility] Comment on above: Order Comment: Order Date: 01/18/24Order Info: 018- - CBCD Performed By: #### L 503.6075, L501.9985, L506.1000, L503.0105, L500.4050, L500.4100, L100.0100, L503.6550, L502.0250, L503.6150 ####[facility] [address] [place], [address] Neutrophils/100 WBC (Bld) 60.8 % Normal 47-70 [facility] Comment on above: Order Comment: Order Date: 01/18/24Order Info: 0184-1 - CBCD Performed By: #### L 503.6075, L501.9985, L506.1000, L503.0105, L500.4050, L500.4100, L100.0100, L503.6550, L502.0250, L503.6150 ####[facility] [address] [place], [address] Nucleated RBC (Bld) [#/Vol] 0 10*3/uL Normal 0-5 [facility] Comment on above: Order Comment: Order Date: 01/18/24Order Info: 018- - CBCD Performed By: #### L 503.6075, L501.9985, L506.1000, L503.0105, L500.4050, L500.4100, L100.0100, L503.6550, L502.0250, L503.6150 ####[facility] [address] [place], [place], [phone] Platelet mean volume (Bld) [Entitic vol] 10.9 fL Normal 6.2-12.0 [facility] Comment on above: Order Comment: Order Date: 01/18/24Order Info: 0184-1 - CBCD Performed By: #### L 503.6075, L501.9985, L506.1000, L503.0105, L500.4050, L500.4100, L100.0100, L503.6550, L502.0250, L503.6150 ####[facility] [address] [place], [address] Platelets (Bld) [#/Vol] 288 10*3/uL Normal 150-450 [facility] Comment on above: Order Comment: Order Date: 01/18/24Order Info: 018- - CBCD Performed By: #### L 503.6075, L501.9985, L506.1000, L503.0105, L500.4050, L500.4100, L100.0100, L503.6550, L502.0250, L503.6150 ####[facility] [address] [place], [address] RBC (Bld) [#/Vol] 4.64 10*6/uL Normal 4.2-5.4 [facility] Comment on above: Order Comment: Order Date: 01/18/24Order Info: 018- - CBCD Performed By: #### L 503.6075, L501.9985, L506.1000, L503.0105, L500.4050, L500.4100, L100.0100, L503.6550, L502.0250, L503.6150 ####[facility] [address] [place], [address] RDW SD 47.0 fl High 35.1-43.9 [facility] Comment on above: Order Comment: Order Date: 01/18/24Order Info: 018- - CBCD Performed By: #### L 503.6075, L501.9985, L506.1000, L503.0105, L500.4050, L500.4100, L100.0100, L503.6550, L502.0250, L503.6150 ####[facility] [address] [place], [address] WBC (Bld) [#/Vol] 7.2 10*3/uL Normal 4.4-11.0 [facility] Comment on above: Order Comment: Order Date: 01/18/24Order Info: 018- - CBCD Performed By: #### L 503.6075, L501.9985, L506.1000, L503.0105, L500.4050, L500.4100, L100.0100, L503.6550, L502.0250, L503.6150 ####[facility] [address] [place], [address] Comprehensive Metabolic Prof ilon 04-30-2024 Albumin [Mass/Vol] 4.0 g/dL Normal 3.2-5.0 [facility] Comment on above: Order Comment: Order Date: 01/18/24Order Info: 0786- - CMPOrder Info: [id number] - LIPIDOrder Info: [id number] - TIBCOrder Info: 2497-08 - FEOrder Info: [id number] - DARRYL Performed By: #### L 503.6075, L501.9985, L506.1000, L503.0105, L500.4050, L500.4100, L100.0100, L503.6550, L502.0250, L503.6150 ####[facility] [address] [place], [address] Albumin/Globulin [Mass ratio] 1.1 {ratio} Normal 0.9-2.4 [facility] Comment on above: Order Comment: Order Date: 01/18/24Order Info: 0786- - CMPOrder Info: [id number] - LIPIDOrder Info: [id number] - TIBCOrder Info: 2497-08 - FEOrder Info: [id number] - DARRYL Performed By: #### L 503.6075, L501.9985, L506.1000, L503.0105, L500.4050, L500.4100, L100.0100, L503.6550, L502.0250, L503.6150 ####[facility] [address] [place], [address] ALK P 34 U/L Low 45-117 [facility] Comment on above: Order Comment: Order Date: 01/18/24Order Info: 07- - CMPOrder Info: - LIPIDOrder Info: [id number] - TIBCOrder Info: 2497-08 - FEOrder Info: [id number] - DARRYL Performed By: #### L 503.6075, L501.9985, L506.1000, L503.0105, L500.4050, L500.4100, L100.0100, L503.6550, L502.0250, L503.6150 ####[facility] [address] [place], [place], [phone] ALT [Catalytic activity/Vol] 25 U/L Normal 13-56 [facility] Comment on above: Order Comment: Order Date: 01/18/24Order Info: 07 - CMPOrder Info: - LIPIDOrder Info: [id number] - TIBCOrder Info: 2497-08 - FEOrder Info: [id number] - DARRYL Performed By: #### L 503.6075, L501.9985, L506.1000, L503.0105, L500.4050, L500.4100, L100.0100, L503.6550, L502.0250, L503.6150 ####[facility] [address] [place], [place], [phone] AST [Catalytic activity/Vol] 16 U/L Normal 15-37 [facility] Comment on above: Order Comment: Order Date: 01/18/24Order Info: 0786 - CMPOrder Info: - LIPIDOrder Info: [id number] - TIBCOrder Info: 2497-08 - FEOrder Info: [id number] - DARRYL Performed By: #### L 503.6075, L501.9985, L506.1000, L503.0105, L500.4050, L500.4100, L100.0100, L503.6550, L502.0250, L503.6150 ####[facility] [address] [place], [place], [phone] Bilirubin [Mass/Vol] 0.70 mg/dL Normal 0.20-1.00 [facility] Comment on above: Order Comment: Order Date: 01/18/24Order Info: 0786- - CMPOrder Info: [id number] - LIPIDOrder Info: [id number] - TIBCOrder Info: 2497-08 - FEOrder Info: 2275-08 - DARRYL Result Comment: For patients on eltrombopag therapy, use of Dimension [place] TBIL is not recommended. Performed By: #### L 503.6075, L501.9985, L506.1000, L503.0105, L500.4050, L500.4100, L100.0100, L503.6550, L502.0250, L503.6150 ####[facility] [address] [place], [place], [phone] BUN/CRE 22.0 RATIO High 10-20 [facility] Comment on above: Order Comment: Order Date: 01/18/24Order Info: 785-05 - CMPOrder Info: [id number] - LIPIDOrder Info: [id number] - TIBCOrder Info: 2497-08 - FEOrder Info: 2275-08 - DARRYL Performed By: #### L 503.6075, L501.9985, L506.1000, L503.0105, L500.4050, L500.4100, L100.0100, L503.6550, L502.0250, L503.6150 ####[facility] [address] [place], [place], [phone] CA,Total 9.7 mg/dL Normal 8.5-10.1 [facility] Comment on above: Order Comment: Order Date: 01/18/24Order Info: 0786- - CMPOrder Info: [id number] - LIPIDOrder Info: [id number] - TIBCOrder Info: 2497-08 - FEOrder Info: 2275-08 - DARRYL Performed By: #### L 503.6075, L501.9985, L506.1000, L503.0105, L500.4050, L500.4100, L100.0100, L503.6550, L502.0250, L503.6150 ####[facility] [address] [place], [address] Chloride [Moles/Vol] 106 mmol/L Normal 98-107 [facility] Comment on above: Order Comment: Order Date: 01/18/24Order Info: 86-1 - CMPOrder Info: [id number] - LIPIDOrder Info: [id number] - TIBCOrder Info: 2497-08 - FEOrder Info: [id number] - DARRYL Performed By: #### L 503.6075, L501.9985, L506.1000, L503.0105, L500.4050, L500.4100, L100.0100, L503.6550, L502.0250, L503.6150 ####[facility] [address] [place], [address] CO2 [Moles/Vol] 27.0 mmol/L Normal 21.0-32.0 [facility] Comment on above: Order Comment: Order Date: 01/18/24Order Info: 785- - CMPOrder Info: [id number] - LIPIDOrder Info: [id number] - TIBCOrder Info: 2497-08 - FEOrder Info: 2275-08 - DARRYL Performed By: #### L 503.6075, L501.9985, L506.1000, L503.0105, L500.4050, L500.4100, L100.0100, L503.6550, L502.0250, L503.6150 ####[facility] [address] [place], [address] Creatinine [Mass/Vol] 0.77 mg/dL Normal 0.55-1.02 [facility] Comment on above: Order Comment: Order Date: 01/18/24Order Info: 86-1 - CMPOrder Info: [id number] - LIPIDOrder Info: [id number] - TIBCOrder Info: 2497-08 - FEOrder Info: 2275-08 - DARRYL Result Comment: The validity of the calculated GFR GFRAA in patients over 70 years has not been determined. Clinical correlation is essential. Performed By: #### L 503.6075, L501.9985, L506.1000, L503.0105, L500.4050, L500.4100, L100.0100, L503.6550, L502.0250, L503.6150 ####[facility] [address] [place], [place], [phone] EST GFR - AA 96 mL/min Normal >60 [facility] Comment on above: Order Comment: Order Date: 01/18/24Order Info: 0786-1 - CMPOrder Info: [id number] - LIPIDOrder Info: [id number] - TIBCOrder Info: 2497-08 - FEOrder Info: 2275-08 - DARRYL Result Comment: Afri can Citizen Of [place] GFR Calc Performed By: #### L 503.6075, L501.9985, L506.1000, L503.0105, L500.4050, L500.4100, L100.0100, L503.6550, L502.0250, L503.6150 ####[facility] [address] [place], [place], [phone] GAP 7 Normal 5-15 [facility] Comment on above: Order Comment: Order Date: 01/18/24Order Info: 0786-1 - CMPOrder Info: [id number] - LIPIDOrder Info: [id number] - TIBCOrder Info: 2497-08 - FEOrder Info: 2275-08 - DARRYL Performed By: #### L 503.6075, L501.9985, L506.1000, L503.0105, L500.4050, L500.4100, L100.0100, L503.6550, L502.0250, L503.6150 ####[facility] [address] [place], [place], [phone] GFR/1.73 sq M.predicted among non-blacks MDRD (S/P/Bld) [Vol rate/Area] 79 mL/min/{1.73_m2} Normal >60 [facility] Comment on above: Order Comment: Order Date: 01/18/24Order Info: 07 - CMPOrder Info: [id number] - LIPIDOrder Info: [id number] - TIBCOrder Info: 2497-08 - FEOrder Info: 2275-08 - DARRYL Result Comment: Non- GFR Calc Performed By: #### L 503.6075, L501.9985, L506.1000, L503.0105, L500.4050, L500.4100, L100.0100, L503.6550, L502.0250, L503.6150 ####[facility] [address] [place], [place], [phone] Globulin (S) [Mass/Vol] 3.6 g/dL Normal 2.2-4.2 [facility] Comment on above: Order Comment: Order Date: 01/18/24Order Info: 785-05 - CMPOrder Info: - LIPIDOrder Info: [id number] - TIBCOrder Info: 2497-08 - FEOrder Info: 2275-08 - DARRYL Performed By: #### L 503.6075, L501.9985, L506.1000, L503.0105, L500.4050, L500.4100, L100.0100, L503.6550, L502.0250, L503.6150 ####[facility] [address] [place], [place], [phone] Glucose [Mass/Vol] 110 mg/dL High 74-106 [facility] Comment on above: Order Comment: Order Date: 01/18/24Order Info: 07 - CMPOrder Info: [id number] - LIPIDOrder Info: [id number] - TIBCOrder Info: 2497-08 - FEOrder Info: 2275-08 - DARRYL Result Comment: Fast ing Glucose result from 100 to 125 mg/dL suggests IMPAIRED HOMEOSTASIS per A.D.A. criteria. Performed By: #### L 503.6075, L501.9985, L506.1000, L503.0105, L500.4050, L500.4100, L100.0100, L503.6550, L502.0250, L503.6150 ####[facility] [address] [place], [address] Potassium [Moles/Vol] 4.2 mmol/L Normal 3.5-5.1 [facility] Comment on above: Order Comment: Order Date: 01/18/24Order Info: 785- - CMPOrder Info: - LIPIDOrder Info: [id number] - TIBCOrder Info: 2497-08 - FEOrder Info: 2275-08 - DARRYL Performed By: #### L 503.6075, L501.9985, L506.1000, L503.0105, L500.4050, L500.4100, L100.0100, L503.6550, L502.0250, L503.6150 ####[facility] [address] [place], [address] Sodium [Moles/Vol] 140 mmol/L Normal 136-145 [facility] Comment on above: Order Comment: Order Date: 01/18/24Order Info: 785-05 - CMPOrder Info: - LIPIDOrder Info: [id number] - TIBCOrder Info: 2497-08 - FEOrder Info: 2275-08 - DARRYL Performed By: #### L 503.6075, L501.9985, L506.1000, L503.0105, L500.4050, L500.4100, L100.0100, L503.6550, L502.0250, L503.6150 ####[facility] [address] [place], [address] T PROT 7.6 g/dL Normal 6.4-8.2 [facility] Comment on above: Order Comment: Order Date: 01/18/24Order Info: 785- - CMPOrder Info: - LIPIDOrder Info: [id number] - TIBCOrder Info: 2497-08 - FEOrder Info: 2275-08 - DARRYL Performed By: #### L 503.6075, L501.9985, L506.1000, L503.0105, L500.4050, L500.4100, L100.0100, L503.6550, L502.0250, L503.6150 ####[facility] [address] [place], [place], [phone] Urea nitrogen [Mass/Vol] 17 mg/dL Normal 7-18 [facility] Comment on above: Order Comment: Order Date: 01/18/24Order Info: 0786-1 - CMPOrder Info: [id number] - LIPIDOrder Info: [id number] - TIBCOrder Info: 2497-08 - FEOrder Info: 2275-08 - DARRYL Performed By: #### L 503.6075, L501.9985, L506.1000, L503.0105, L500.4050, L500.4100, L100.0100, L503.6550, L502.0250, L503.6150 ####[facility] [address] [place], [place], [phone] Ferritinon 04-30-2024 Ferritin [Mass/Vol] 15 ng/mL Normal 8-252 [facility] Comment on above: Order Comment: Order Date: 01/18/24Order Info: 0786-1 - CMPOrder Info: [id number] - LIPIDOrder Info: [id number] - TIBCOrder Info: 2497-08 - FEOrder Info: 2275-08 - DARRYL Performed By: #### L 503.6075, L501.9985, L506.1000, L503.0105, L500.4050, L500.4100, L100.0100, L503.6550, L502.0250, L503.6150 ####[facility] [address] [place], [place], [phone] Hemoglobin A1con 04-30-2024 HbA1c (Bld) [Mass fraction] 5.9 % High 3.8-5.6 [facility] Comment on above: Order Comment: Order Date: 01/18/24Order Info: 4548-4 - A1C Result Comment: Norm al < 5.7 % Prediabetic 5.7 - 6.4 % Diabetic >or= 6.5 % Please note range changes. Performed By: #### L 503.6550, L503.6150 #### [facility] [address] [place], [address] Ironon 04-30-2024 Iron [Mass/Vol] 59 ug/dL Normal 50-170 [facility] Comment on above: Order Comment: Order Date: 01/18/24Order Info: 0786- - CMPOrder Info: [id number] - LIPIDOrder Info: [id number] - TIBCOrder Info: 2497-08 - FEOrder Info: 2275-08 - DARRYL Performed By: #### L 503.6075, L501.9985, L506.1000, L503.0105, L500.4050, L500.4100, L100.0100, L503.6550, L502.0250, L503.6150 ####[facility] [address] [place], [address] Iron Binding Capacity,Totalo n 04-30-2024 TIBC 340 ug/dL Normal 250-450 [facility] Comment on above: Order Comment: Order Date: 01/18/24Order Info: 0786- - CMPOrder Info: [id number] - LIPIDOrder Info: [id number] - TIBCOrder Info: 2497-08 - FEOrder Info: 2275-08 - DARRYL Performed By: #### L 503.6075, L501.9985, L506.1000, L503.0105, L500.4050, L500.4100, L100.0100, L503.6550, L502.0250, L503.6150 ####[facility] [address] [place], [address] Lipid Profileon 04-30-2024 Cholesterol [Mass/Vol] 156 mg/dL Normal 200 [facility] Comment on above: Order Comment: Order Date: 01/18/24Order Info: 785- - CMPOrder Info: [id number] - LIPIDOrder Info: [id number] - TIBCOrder Info: 2497-08 - FEOrder Info: 2275-08 - DARRYL Result Comment: <200 mg/dL Desirable 200-240 mg/dL Borderline >240 mg/dL High Risk Performed By: #### L 503.6075, L501.9985, L506.1000, L503.0105, L500.4050, L500.4100, L100.0100, L503.6550, L502.0250, L503.6150 ####[facility] [address] [facility] [place], [address] Cholesterol in HDL [Mass/Vol] 76 mg/dL Normal [facility] Comment on above: Order Comment: Order Date: 01/18/24Order Info: 785-05 - CMPOrder Info: - LIPIDOrder Info: [id number] - TIBCOrder Info: 2497-08 - FEOrder Info: 2275-08 - DARRYL Result Comment: The drugs N-Acetylcysteine and Metamizole may falsely depress this assay. Reference Range HDL <40 mg/dL Low HDL Cholesterol HDL >or= 60 mg/dL High HDL Cholesterol Performed By: #### L 503.6075, L501.9985, L506.1000, L503.0105, L500.4050, L500.4100, L100.0100, L503.6550, L502.0250, L503.6150 ####[facility] [address] [facility] [place], [place], [phone] Cholesterol in LDL [Mass/Vol] 67 mg/dL Normal 0-130 [facility] Comment on above: Order Comment: Order Date: 01/18/24Order Info: 785-05 - CMPOrder Info: - LIPIDOrder Info: [id number] - TIBCOrder Info: 2497-08 - FEOrder Info: 2275-08 - DARRYL Performed By: #### L 503.6075, L501.9985, L506.1000, L503.0105, L500.4050, L500.4100, L100.0100, L503.6550, L502.0250, L503.6150 ####[facility] [address] [place], [place], [phone] Cholesterol in VLDL [Mass/Vol] 13 mg/dL Normal 5-40 [facility] Comment on above: Order Comment: Order Date: 01/18/24Order Info: 0786- - CMPOrder Info: [id number] - LIPIDOrder Info: [id number] - TIBCOrder Info: 2497-08 - FEOrder Info: 2275-08 - DARRYL Performed By: #### L 503.6075, L501.9985, L506.1000, L503.0105, L500.4050, L500.4100, L100.0100, L503.6550, L502.0250, L503.6150 ####[facility] [address] [place], [place], [phone] Triglyceride [Mass/Vol] 64 mg/dL Normal [facility] Comment on above: Order Comment: Order Date: 01/18/24Order Info: 0786 - CMPOrder Info: [id number] - LIPIDOrder Info: [id number] - TIBCOrder Info: 2497-08 - FEOrder Info: 2275-08 - DARRYL Result Comment: The drugs N-Acetylcysteine and Metamizole may falsely depress this assay. Serum Triglycerides Reference Interval Normal <150 mg/dL Borderline high 150 - 199 mg/dL High 200 - 499 mg/dL Very High > or = 500 mg/dL Performed By: #### L 503.6075, L501.9985, L506.1000, L503.0105, L500.4050, L500.4100, L100.0100, L503.6550, L502.0250, L503.6150 ####[facility] [address] [place], [place], [phone] Microalb:Creat Ratio,Random URon 04-30-2024 Creatinine [Mass/Vol] 22.20 mg/dL Normal NO RAN GE EST. [facility] Comment on above: Order Comment: Order Date: 01/18/24Order Info: 0779-1 - MIACRE Performed By: #### L 503.6550, L503.6150 #### [facility] [address] [place], [address] MALB:CRE 39.0 mg/g CRE High <30 mg/g CRE [facility] Comment on above: Order Comment: Order Date: 01/18/24Order Info: 0779-1 - MIACRE Performed By: #### L 503.6550, L503.6150 #### [facility] [address] [place], [address] MICROALBUMIN,UR 8.7 mg/L Normal NO RANGE EST. [facility] Comment on above: Order Comment: Order Date: 01/18/24Order Info: 0779- - MIACRE Performed By: #### L 503.6550, L503.6150 #### [facility] [address] [place], [address] Urinalysis, Completeon 04-30 BACTERIA RARE Normal None Seen [facility] Comment on above: Order Comment: Order Date: 08/30/23 Order Info: 4548-4 - A1C Performed By: #### L 500.4050, L503.6150, L503.0105, L506.0250, L100.0100, L500.4100, L501.9985, L503.6075, L503.6550, L506.1000 #### [facility] [address] [place], [address] WBC 0-5 SEEN Normal 0-5 [facility] Comment on above: Order Comment: Order Date: 08/30/23 Order Info: 4548-4 - A1C Performed By: #### L 500.4050, L503.6150, L503.0105, L506.0250, L100.0100, L500.4100, L501.9985, L503.6075, L503.6550, L506.1000 #### [facility] [address] [place], [address] BILIRUBIN URINE Negative Normal Negative [facility] Comment on above: Order Comment: Order Date: 08/30/23 Order Info: 4548-4 - A1C Performed By: #### L 500.4050, L503.6150, L503.0105, L506.0250, L100.0100, L500.4100, L501.9985, L503.6075, L503.6550, L506.1000 #### [facility] [address] [place], [address] Clarity (U) Clear Normal Clear [facility] Comment on above: Order Comment: Order Date: 08/30/23 Order Info: 4548-4 - A1C Performed By: #### L 500.4050, L503.6150, L503.0105, L506.0250, L100.0100, L500.4100, L501.9985, L503.6075, L503.6550, L506.1000 #### [facility] [address] [place], [address] Color (U) Straw Normal Yellow [facility] Comment on above: Order Comment: Order Date: 08/30/23 Order Info: 4548-4 - A1C Performed By: #### L 500.4050, L503.6150, L503.0105, L506.0250, L100.0100, L500.4100, L501.9985, L503.6075, L503.6550, L506.1000 #### [facility] [address] [place], [address] GLUCOSE, UR 1000 mg/dl Abnormal Normal [facility] Comment on above: Order Comment: Order Date: 08/30/23 Order Info: 4548-4 - A1C Performed By: #### L 500.4050, L503.6150, L503.0105, L506.0250, L100.0100, L500.4100, L501.9985, L503.6075, L503.6550, L506.1000 #### [facility] [address] [place], [address] KETONE UR Negative Normal Negative [facility] Comment on above: Order Comment: Order Date: 08/30/23 Order Info: 4548-4 - A1C Performed By: #### L 500.4050, L503.6150, L503.0105, L506.0250, L100.0100, L500.4100, L501.9985, L503.6075, L503.6550, L506.1000 #### [facility] [address] [place], [place], [phone] LEUK ESTERASE 25 /ul Abnormal Negative [facility] Comment on above: Order Comment: Order Date: 08/30/23 Order Info: 4548-4 - A1C Performed By: #### L 500.4050, L503.6150, L503.0105, L506.0250, L100.0100, L500.4100, L501.9985, L503.6075, L503.6550, L506.1000 #### [facility] [address] [facility] [address] [place], [place], [phone] Nitrite Ql (U) Negative Normal Negative [facility] Comment on above: Order Comment: Order Date: 08/30/23 Order Info: 4548-4 - A1C Performed By: #### L 500.4050, L503.6150, L503.0105, L506.0250, L100.0100, L500.4100, L501.9985, L503.6075, L503.6550, L506.1000 #### [facility] [address] [place], [place], [id number] OCCULT BLOOD-UR Negative Normal Negative [facility] Comment on above: Order Comment: Order Date: 08/30/23 Order Info: 4548-4 - A1C Performed By: #### L 500.4050, L503.6150, L503.0105, L506.0250, L100.0100, L500.4100, L501.9985, L503.6075, L503.6550, L506.1000 #### [facility] [address] [place], [address] pH UR 6.5 Normal 5.0 - 8.0 [facility] Comment on above: Order Comment: Order Date: 08/30/23 Order Info: 4548-4 - A1C Performed By: #### L 500.4050, L503.6150, L503.0105, L506.0250, L100.0100, L500.4100, L501.9985, L503.6075, L503.6550, L506.1000 #### [facility] [address] [place], [place], [id number] PROT DIPSTX Negative Normal Negative [facility] Comment on above: Order Comment: Order Date: 08/30/23 Order Info: 4548-4 - A1C Performed By: #### L 500.4050, L503.6150, L503.0105, L506.0250, L100.0100, L500.4100, L501.9985, L503.6075, L503.6550, L506.1000 #### [facility] [address] [place], [place], [id number] SP.GR. DIPSTX 1.010 Normal 1.002-1.030 [facility] Comment on above: Order Comment: Order Date: 08/30/23 Order Info: 4548-4 - A1C Performed By: #### L 500.4050, L503.6150, L503.0105, L506.0250, L100.0100, L500.4100, L501.9985, L503.6075, L503.6550, L506.1000 #### [facility] [address] [place], [address] UROBILI Normal Normal Normal [facility] Comment on above: Order Comment: Order Date: 08/30/23 Order Info: 4548-4 - A1C Performed By: #### L 500.4050, L503.6150, L503.0105, L506.0250, L100.0100, L500.4100, L501.9985, L503.6075, L503.6550, L506.1000 #### [facility] [address] [place], [address] EPI,SQUAMOUS 0 SEEN Normal 5-10 [facility] Comment on above: Order Comment: Order Date: 08/30/23 Order Info: 4548-4 - A1C Performed By: #### L 500.4050, L503.6150, L503.0105, L506.0250, L100.0100, L500.4100, L501.9985, L503.6075, L503.6550, L506.1000 #### [facility] [address] [place], [place], [id number] Mucus Ql (Urine sed) 0 SEEN Normal [place] [facility] Comment on above: Order Comment: Order Date: 08/30/23 Order Info: [id number] - A1C Performed By: #### L 500.4050, L503.6150, L503.0105, L506.0250, L100.0100, L500.4100, L501.9985, L503.6075, L503.6550, L506.1000 #### [facility] [address] [place], [place], [id number] RBC 0 SEEN Normal 0-5 [facility] Comment on above: Order Comment: Order Date: 08/30/23 Order Info: 4548-4 - A1C Performed By: #### L 500.4050, L503.6150, L503.0105, L506.0250, L100.0100, L500.4100, L501.9985, L503.6075, L503.6550, L506.1000 #### [facility] [address] [place], [id number] Vitamin B12on 04-30-2024 Cobalamin (Vitamin B12) [Mass/Vol] 431 pg/mL Normal 211-911 [facility] Comment on above: Order Comment: Order Date: 01/18/24Order Info: [id number] - [id number] Info: [id number] - VITD25 Performed By: #### L 503.6550, L503.6150 #### [facility] [address] [place], [address] Vitamin D,25 Hydroxyon 04-30 Vitamin D 25-OH 52.6 ng/mL Normal [facility] Comment on above: Order Comment: Order Date: 01/18/24Order Info: [id number] - [id number] Info: [id number] - [id number] Result Comment: Salma min D 25(OH) Status Range Deficiency <20 ng/mL (50nmol/L) Insufficiency 20 - 30 ng/mL (50 - 75 nmol/L) Sufficiency 30 - 100 ng/mL (75 - 250 nmol/L) Toxicity >100 ng/mL (>250 nmol/L) Performed By: #### L 503.6550, L503.6150 #### [facility] [address] [place], [id number] Basic metabolic 2000 panelOr dered By: Rocio Bai on 04-05-2024 Anion gap [Moles/Vol] 13 mmol/L 8 - 15 mmol/L [facility] Calcium [Mass/Vol] 10.6 mg/dL High 8.5 - 10. 2 mg/dL [facility] Chloride [Moles/Vol] 101 mmol/L 98 - 10 7 mmol/L [facility] CO2 [Moles/Vol] 26 mmol/L 22 - 30 mmol/L [facility] Creatinine [Mass/Vol] 0.79 mg/dL 0.58 - 0.96 mg/dL [facility] GFR/1.73 sq M.predicted among non-blacks MDRD (S/P/Bld) [Vol rate/Area] 83 mL/min/{1.73_m2} - PINF [facility] Comment on above: Estimated Glomerular Filtration Rate [...] 106 mg/dL High 74 - 99 mg/dL [facility] Comment on above: The [place] Diabete s Association (ADA) provides guidance for [...] Standards of Medical Care in Diabetes 2016, [place] Diabetes Association. Diabetes Care. 2016.39(Suppl 1). Interpretation and review of laboratory results Abnormal [facility] Potassium [Moles/Vol] 3.9 mmol/L 3.7 - 5.1 mmol/L [facility] Sodium [Moles/Vol] 140 mmol/L 136 - 144 mmol/L [facility] Urea nitrogen [Mass/Vol] 17 mg/dL 7 - 21 mg/d L [facility] Basic metabolic 2000 panelon 04-05-2024 Anion gap [Moles/Vol] 13 mmol/L Normal 8-15 [facility] Comment on above: Order Comment: Speci men Type: URINE SPECIMEN Ordering Facility: [facility] Address: [address] [place] [address] Performed By: #### L [id number] #### [facility] CLIA [id number] [address] [place] [address] [place] [address] [place] Calcium [Mass/Vol] 10.6 mg/dL High 8.5-10.2 [facility] Comment on above: Order Comment: Speci men Type: URINE SPECIMEN Ordering Facility: [facility] Address: [address] [place] [address] Performed By: #### L [id number] #### [facility] CLIA [id number] [address] [place] [address] [place] Chloride [Moles/Vol] 101 mmol/L Normal 98-107 [facility] Comment on above: Order Comment: Speci men Type: URINE SPECIMEN Ordering Facility: [facility] Address: [address] [place] [address] Performed By: #### L [id number] #### [facility] CLIA [id number] [address] [place] [address] [place] CO2 [Moles/Vol] 26 mmol/L Normal 22-30 [facility] Comment on above: Order Comment: Speci men Type: URINE SPECIMEN Ordering Facility: [facility] Address: [address] [place] [address] Performed By: #### L [id number] #### [facility] CLIA [id number] [address] [place] [address] [place] Creatinine [Mass/Vol] 0.79 mg/dL Normal 0.58-0.96 [facility] Comment on above: Order Comment: Speci men Type: URINE SPECIMEN Ordering Facility: [facility] Address: [address] [place] [address] Performed By: #### L [id number] #### [facility] CLIA [id number] [address] [place] [address] [place] Creatinine and Glomerular filtration rate.predicted panel (S/P/Bld) 83 mL/min/1.73m??? Normal >=60 [facility] Comment on above: Order Comment: Speci men Type: URINE SPECIMEN Ordering Facility: [facility] Address: [address] [place] [address] Result Comment: Keke mated Glomerular Filtration Rate [...] reflect actual GFR. Performed By: #### L [id number] #### [facility] CLIA [id number] [address] [place] [address] [place] Glucose [Mass/Vol] 106 mg/dL High 74-99 [facility] Comment on above: Order Comment: Speci men Type: URINE SPECIMEN Ordering Facility: [facility] Address: [address] [place] [address] Result Comment: The [place] Diabetes Association (ADA) provides guidance for cutoff [...] Standards of Medical Care in Diabetes 2016, [place] Diabetes Association. Diabetes Care. 2016.39(Suppl 1). Performed By: #### L [id number] #### [facility] CLIA [id number] [address] [place] [address] [place] Potassium [Moles/Vol] 3.9 mmol/L Normal 3.7-5.1 [facility] Comment on above: Order Comment: Speci men Type: URINE SPECIMEN Ordering Facility: [facility] Address: [address] [place] [address] Performed By: #### L [id number] #### [facility] CLIA [id number] [address] [place] [address] [place] Sodium [Moles/Vol] 140 mmol/L Normal 136-144 [facility] Comment on above: Order Comment: Speci men Type: URINE SPECIMEN Ordering Facility: [facility] Address: [address] [place] [address] Performed By: #### L [id number] #### [facility] CLIA [id number] [address] [place] [address] [place] Urea nitrogen [Mass/Vol] 17 mg/dL Normal 7-21 [facility] Comment on above: Order Comment: Speci men Type: URINE SPECIMEN Ordering Facility: [facility] Address: [address] [place] [address] Performed By: #### L [id number] #### [facility] CLIA [id number] [address] [place] [address] [place] CBC W Auto Differential pane l (Bld)on 04-05-2024 Basophils (Bld) [#/Vol] 0.04 10*3/uL [facility] Basophils/100 WBC (Bld) 0.5 % [facility] Differential cell count method Nom (Bld) Auto [facility] Eosinophils (Bld) [#/Vol] 0.07 10*3/uL [facility] Eosinophils/100 WBC (Bld) 0.8 % [facility] Erythrocyte distribution width (RBC) [Ratio] 14.6 % 11.5 - 15.0 % [facility] Hematocrit (Bld) [Volume fraction] 39.8 % 36.0 - 46.0 % [facility] Hemoglobin (Bld) [Mass/Vol] 12.9 g/dL 11.5 - 15.5 g/dL [facility] Immature granulocytes (Bld) [#/Vol] 0.04 10*3/uL [facility] Immature granulocytes/100 WBC (Bld) 0.5 % [facility] Lymphocytes (Bld) [#/Vol] 1.87 10*3/uL [facility] Lymphocytes/100 WBC (Bld) 22.6 % [facility] MCH (RBC) [Entitic mass] 28.5 pg 26. 0 - 34.0 pg [facility] MCHC (RBC) [Mass/Vol] 32.4 g/dL 30.5 - 36.0 g/dL [facility] MCV (RBC) [Entitic vol] 87.9 fL 80.0 - 100.0 fL [facility] Monocytes (Bld) [#/Vol] 0.53 10*3/uL [facility] Monocytes/100 WBC (Bld) 6.4 % [facility] Neutrophils (Bld) [#/Vol] 5.71 10*3/uL [facility] Neutrophils/100 WBC (Bld) 69.2 % [facility] Nucleated RBC (Bld) [#/Vol] NINF [facility] Nucleated RBC/100 WBC (Bld) [Ratio] 0.0 % /100 WBC [facility] Platelet mean volume (Bld) [Entitic vol] 10.2 fL 9.0 - 12.7 fL [facility] Platelets (Bld) [#/Vol] 276 10*3/uL [facility] RBC (Bld) [#/Vol] 4.53 10*6/uL 3.90 - 5.2 0 m/uL [facility] WBC (Bld) [#/Vol] 8.26 10*3/uL [facility] Basophils (Bld) [#/Vol] 0.04 10*3/uL Normal <0.11 [facility] Comment on above: Order Comment: Speci men Type: BLOOD SPECIMEN Ordering Facility: [facility] Address: [address] [place] [address] Performed By: #### 5 7021-8 #### [id number] [address] [place] [address] [place] Basophils/100 WBC (Bld) 0.5 % Normal [facility] Comment on above: Order Comment: Speci men Type: BLOOD SPECIMEN Ordering Facility: [facility] Address: [address] [place] [address] Performed By: #### 5 7021-8 #### [facility] CLIA [id number] [address] [place] [address] [place] Differential cell count method Nom (Bld) Auto Normal [facility] Comment on above: Order Comment: Speci men Type: BLOOD SPECIMEN Ordering Facility: [facility] Address: [address] [place] [address] Performed By: #### 5 7021-8 #### [facility] CLIA [id number] [address] [place] [address] [place] Eosinophils (Bld) [#/Vol] 0.07 10*3/uL Normal <0.46 [facility] Comment on above: Order Comment: Speci men Type: BLOOD SPECIMEN Ordering Facility: [facility] Address: [address] [place] [address] Performed By: #### 5 7021-8 #### [facility] CLIA [id number] [address] [place] [address] [place] Eosinophils/100 WBC (Bld) 0.8 % Normal [facility] Comment on above: Order Comment: Speci men Type: BLOOD SPECIMEN Ordering Facility: [facility] Address: [address] [place] [address] Performed By: #### 5 7021-8 #### [facility] CLIA [id number] [address] [place] [address] [place] Erythrocyte distribution width (RBC) [Ratio] 14.6 % Normal 11.5-15.0 [facility] Comment on above: Order Comment: Speci men Type: BLOOD SPECIMEN Ordering Facility: [facility] Address: [address] [place] [address] Performed By: #### 5 7021-8 #### [facility] CLIA [id number] [address] [place] [address] [place] Hematocrit (Bld) [Volume fraction] 39.8 % Normal 36.0-46.0 [facility] Comment on above: Order Comment: Speci men Type: BLOOD SPECIMEN Ordering Facility: [facility] Address: [address] [place] [address] Performed By: #### 5 7021-8 #### [facility] CLIA [id number] [address] [place] [address] [place] Hemoglobin (Bld) [Mass/Vol] 12.9 g/dL Normal 11.5-15.5 [facility] Comment on above: Order Comment: Speci men Type: BLOOD SPECIMEN Ordering Facility: [facility] Address: [address] [place] [address] Performed By: #### 5 7021-8 #### [facility] CLIA [id number] [address] [place] [address] [place] Immature granulocytes (Bld) [#/Vol] 0.04 10*3/uL Normal <0.10 [facility] Comment on above: Order Comment: Speci men Type: BLOOD SPECIMEN Ordering Facility: [facility] Address: [address] [place] [address] Performed By: #### 5 7021-8 #### [facility] CLIA [id number] [address] [place] [address] [place] Immature granulocytes/100 WBC (Bld) 0.5 % Normal [facility] Comment on above: Order Comment: Speci men Type: BLOOD SPECIMEN Ordering Facility: [facility] Address: [address] [place] [address] Performed By: #### 5 7021-8 #### [facility] CLIA [id number] [address] [place] [address] [place] Lymphocytes (Bld) [#/Vol] 1.87 10*3/uL Normal 1.00-4.0 0 [facility] Comment on above: Order Comment: Speci men Type: BLOOD SPECIMEN Ordering Facility: [facility] Address: [address] [place] [address] Performed By: #### 5 7021-8 #### [facility] CLIA [id number] [address] [place] [address] [place] Lymphocytes/100 WBC (Bld) 22.6 % Normal [facility] Comment on above: Order Comment: Speci men Type: BLOOD SPECIMEN Ordering Facility: [facility] Address: [address] [place] [address] Performed By: #### 5 7021-8 #### [facility] CLIA [id number] [address] [place] [address] [place] MCH (RBC) [Entitic mass] 28.5 pg Normal 26.0-34.0 [facility] Comment on above: Order Comment: Speci men Type: BLOOD SPECIMEN Ordering Facility: [facility] Address: [address] [place] [address] Performed By: #### 5 7021-8 #### [facility] CLIA [id number] [address] [place] [address] [place] MCHC (RBC) [Mass/Vol] 32.4 g/dL Normal 30.5-36.0 [facility] Comment on above: Order Comment: Speci men Type: BLOOD SPECIMEN Ordering Facility: [facility] Address: [address] [place] [address] Performed By: #### 5 7021-8 #### [facility] CLIA [id number] [address] [place] [address] [place] MCV (RBC) [Entitic vol] 87.9 fL Normal 80.0-100.0 [facility] Comment on above: Order Comment: Speci men Type: BLOOD SPECIMEN Ordering Facility: [facility] Address: [address] [place] [address] Performed By: #### 5 7021-8 #### [facility] CLIA [id number] [address] [place] [address] [place] Monocytes (Bld) [#/Vol] 0.53 10*3/uL Normal <0.87 [facility] Comment on above: Order Comment: Speci men Type: BLOOD SPECIMEN Ordering Facility: [facility] Address: [address] [place] [address] Performed By: #### 5 7021-8 #### [facility] CLIA [id number] [address] [place] [address] [place] Monocytes/100 WBC (Bld) 6.4 % Normal [facility] Comment on above: Order Comment: Speci men Type: BLOOD SPECIMEN Ordering Facility: [facility] Address: [facility] [place] [address] Performed By: #### 5 7021-8 #### [facility] CLIA [id number] [address] [place] [address] [place] Neutrophils (Bld) [#/Vol] 5.71 10*3/uL Normal 1.45-7.5 0 [facility] Comment on above: Order Comment: Speci men Type: BLOOD SPECIMEN Ordering Facility: [facility] Address: [address] [place] [address] Performed By: #### 5 7021-8 #### [facility] CLIA [id number] [address] [place] [address] [place] Neutrophils/100 WBC (Bld) 69.2 % Normal [facility] Comment on above: Order Comment: Speci men Type: BLOOD SPECIMEN Ordering Facility: [facility] Address: [address] [place] [address] Performed By: #### 5 7021-8 #### [facility] CLIA [id number] [address] [place] [address] [place] Nucleated RBC (Bld) [#/Vol] 10*3/uL Normal <0.01 [facility] Comment on above: Order Comment: Speci men Type: BLOOD SPECIMEN Ordering Facility: [facility] Address: [facility] [place] [address] Performed By: #### 5 7021-8 #### [facility] CLIA [id number] [address] [place] [address] [place] Nucleated RBC/100 WBC (Bld) [Ratio] 0.0 /100 WBC Normal [facility] Comment on above: Order Comment: Speci men Type: BLOOD SPECIMEN Ordering Facility: [facility] Address: [address] [place] [address] Performed By: #### 5 7021-8 #### [facility] CLIA [id number] [address] [place] [address] [place] Platelet mean volume (Bld) [Entitic vol] 10.2 fL Normal 9.0-12.7 [facility] Comment on above: Order Comment: Speci men Type: BLOOD SPECIMEN Ordering Facility: [facility] Address: [address] [place], [place] [address] Performed By: #### 5 7021-8 #### [facility] CLIA [id number] [address] [place] [address] [place] Platelets (Bld) [#/Vol] 276 10*3/uL Normal 150-400 [facility] Comment on above: Order Comment: Speci men Type: BLOOD SPECIMEN Ordering Facility: [facility] Address: [address] [place] [address] Performed By: #### 5 7021-8 #### [facility] CLIA [id number] [address] [place] [address] [place] RBC (Bld) [#/Vol] 4.53 10*6/uL Normal 3.90-5.20 [facility] Comment on above: Order Comment: Speci men Type: BLOOD SPECIMEN Ordering Facility: [facility] Address: [address] [place] [address] Performed By: #### 5 7021-8 #### [facility] CLIA [id number] [address] [place] [address] [place] WBC (Bld) [#/Vol] 8.26 10*3/uL Normal 3.70-11.00 [facility] Comment on above: Order Comment: Speci men Type: BLOOD SPECIMEN Ordering Facility: [facility] Address: [address] [place] [place] [id number] Performed By: #### 5 7021-8 #### [facility] VICENTA [id number] [address] [place] [address] [place] CNOVSPon 04-05-2024 CNOVSP Visit (SP) Office ([facility]) MARTHA FABIAN ([id number]) 1955 F Date Time Provider Department 04/05/24 [...] which included preparing to see the patient, [id number] patient care, completing clinical documentation, obtaining and/or reviewing separately obtained history, performing a medically appropriate examination, counseling and educating the patient/family/caregive r, ordering medications, tests, or procedures, independently interpreting results (not separately reported), and communicating results to the patient/family/caregive r. Electronically Signed: Juan Ramon Purcell MD April 05, 2024 10:20 AM Referring Provider: SCOTT STEELE [[id number]] Allergies As of Date: 04/05/ (more content not included)... Normal [facility] IMMUNOFIXATION SCREEN, SERUM on 04-05-2024 INTERPRETATION (MPA) [...] monoclonal gammopathy. Clinical correlation is necessary. Normal [facility] Comment on above: Order Comment: Speci men Type: URINE SPECIMEN Ordering Facility: [facility] Address: [address] [place] [address] Performed By: #### L [id number] #### [facility] CLIA [id number] [address] [place] [address] [place] [address] [place] MPA RESULT A poorly defined reg ion of restricted mobility is present that may represent an M protein. Abnormal No M protein is identified. [facility] Comment on above: Order Comment: Speci men Type: URINE SPECIMEN Ordering Facility: [facility] Address: [address] [place] [address] Performed By: #### L [id number] #### [facility] CLIA [id number] [address] [place] [address] [place] STAFF REVIEW (MPA) Reviewed by Daniel Hannon MD, Ph.D ([id number]) Normal [facility] Comment on above: Order Comment: Speci men Type: URINE SPECIMEN Ordering Facility: [facility] Address: [address] [place] [address] Performed By: #### L [id number] #### [facility] CLIA [id number] [address] [place] [address] [place] IMMUNOGLOBULINS,IGG,IGA,IGMo n 04-05-2024 IgA [Mass/Vol] 171 mg/dL Normal 70-400 [facility] Comment on above: Order Comment: Speci men Type: BLOOD SPECIMEN Ordering Facility: [facility] Address: [address] [place] [address] Performed By: #### S ERIMM #### [facility] CLIA [id number] [address] [place] [address] [place] IgG [Mass/Vol] 730 mg/dL Normal 700-1600 [facility] Comment on above: Order Comment: Speci men Type: BLOOD SPECIMEN Ordering Facility: [facility] Address: [address] [place] [address] Performed By: #### S ERIMM #### [facility] CLIA [id number] [address] [place] [address] [place] IgM [Mass/Vol] 515 mg/dL High 40-230 [facility] Comment on above: Order Comment: Speci men Type: BLOOD SPECIMEN Ordering Facility: [facility] Address: [address] [place] [address] Performed By: #### S ERIMM #### [facility] CLIA [id number] [address] [place] [address] [place] KAPPA/LA,FREE,SERon 2023 Immunoglobulin light chains.kappa.free (S) [Mass/Vol] 30.9 mg/L High 3.3-19.4 [facility] Comment on above: Order Comment: Speci men Type: BLOOD SPECIMEN Ordering Facility: [facility] Address: [address] [place] [address] Result Comment: Rare ly, increased serum free light chains levels may not be detected or accurately quantified due to prozone phenomenon or in high viscosity samples using this immunoturbidimetric assay. Correlation with other laboratory results and clinical findings is recommended. The [place] Free Light Chain was performed using the Binding Site Optilite immunoturbidimetric method. Result obtained with different assay methods or kits cannot be used interchangeably. Performed By: #### K LFRS #### [facility] CLIA [id number] [address] [place] [address] [place] Immunoglobulin light chains.kappa/Immunoglobul in light chains.lambda (S) [Mass ratio] 1.22 Normal 0.26-1.65 [facility] Comment on above: Order Comment: Speci men Type: BLOOD SPECIMEN Ordering Facility: [facility] Address: [address] [place] [address] Performed By: #### K LFRS #### [facility] CLIA [id number] [address] [place] [address] [place] Immunoglobulin light chains.lambda.free [Mass/Vol] 25.4 mg/L Normal 5.7-26.3 [facility] Comment on above: Order Comment: Speci men Type: BLOOD SPECIMEN Ordering Facility: [facility] Address: [address] [place] [address] Result Comment: Rare ly, increased serum free [...] interchangeably. Performed By: #### K LFRS #### [facility] CLIA [id number] [address] [place] [address] [place] PROTEIN ELECTROPHORESIS SERU M (P)on 04-05-2024 Albumin [Mass/Vol] 4.59 g/dL Normal 3.43-5.41 [facility] Comment on above: Order Comment: Speci men Type: URINE SPECIMEN Ordering Facility: [facility] Address: [address] [place] [address] Performed By: #### L [id number] #### [facility] [place] [id number] [address] [place] [address] [place] Alpha 1 globulin Elph [Mass/Vol] 0.26 g/dL Normal 0.18-0.43 [facility] Comment on above: Order Comment: Speci men Type: URINE SPECIMEN Ordering Facility: [facility] Address: [address] [place] [address] Performed By: #### L [id number] #### [facility] [place] [id number] [address] [place] [address] [place] Alpha 2 globulin Elph [Mass/Vol] 0.69 g/dL Normal 0.42-0.98 [facility] Comment on above: Order Comment: Speci men Type: URINE SPECIMEN Ordering Facility: [facility] Address: [address] [place] [address] Performed By: #### L [id number] #### [facility] CLIA [id number] [address] [place] [address] [place] Beta globulin Elph [Mass/Vol] 0.81 g/dL Normal 0.61-1.17 [facility] Comment on above: Order Comment: Speci men Type: URINE SPECIMEN Ordering Facility: [facility] Address: [address] [place] [address] Performed By: #### L [id number] #### [facility] CLIA [id number] [address] [place] [address] [place] Gamma globulin Elph [Mass/Vol] 0.85 g/dL Normal 0.53-1.51 [facility] Comment on above: Order Comment: Speci men Type: URINE SPECIMEN Ordering Facility: [facility] Address: [address] [place] [address] Performed By: #### L [id number] #### [facility] CLIA [id number] [address] [place] [address] [place] M-PROTEIN LOCATION Normal [facility] Comment on above: Order Comment: Speci men Type: URINE SPECIMEN Ordering Facility: [facility] Address: [address] [place] [address] Result Comment: Not Applicable. Performed By: #### L [id number] #### [facility] CLIA [id number] [address] [place] [address] [place] Protein Fractions [Interp] No definitive M protein is identified on protein electrophoresis. Normal No definitive M protein is identified on protein electrophore sis. [facility] Comment on above: Order Comment: Speci men Type: URINE SPECIMEN Ordering Facility: [facility] Address: [address] [place] [address] Performed By: #### L [id number] #### [facility] CLIA [id number] [address] [place] [address] [place] Protein.monoclonal Elph [Mass/Vol] 0.00 g/dL Normal <=0.00 [facility] Comment on above: Order Comment: Speci men Type: URINE SPECIMEN Ordering Facility: [facility] Address: [address] [place] [address] Performed By: #### L [id number] #### [facility] CLIA [id number] [address] [place] [address] [place] SPE STAFF REVIEW Reviewed by Daniel Hannon MD, Ph.D ([id number]) Normal [facility] Comment on above: Order Comment: Speci men Type: URINE SPECIMEN Ordering Facility: [facility] Address: [address] [place] [address] Performed By: #### L [id number] #### [facility] CLIA [id number] [address] [place] [address] [place] Prot SerPl-mCncon 04-05-2024 Protein [Mass/Vol] 7.2 g/dL Normal 6.3-8.0 [facility] Comment on above: Order Comment: Speci men Type: URINE SPECIMEN Ordering Facility: [facility] Address: [address] [place] [address] Performed By: #### L [id number] #### [facility] CLIA [id number] [address] [place] [address] [place] Prot Ur-mCncon 04-05-2024 Protein (U) [Mass/Vol] 6 mg/dL Normal 0-20 [place] Comment on above: Order Comment: Speci men Type: URINE SPECIMEN Ordering Facility: [facility] Address: [address] [place] [address] Performed By: #### 2 888-6 #### [facility] CLIA [id number] [address] [place] [address] [place] URINE PROTEIN ELECTROPHORESI S RANDOM (P)on 04-05-2024 Albumin Elph (U) [Mass fraction] 51.02 % Normal [facility] Comment on above: Order Comment: Speci men Type: URINE SPECIMEN Ordering Facility: [facility] Address: [address] [place] [address] Performed By: #### L [id number] #### [facility] CLIA [id number] [address] [place] [address] [place] Alpha 1 globulin Elph (U) [Mass fraction] 2.93 % Normal [facility] Comment on above: Order Comment: Speci men Type: URINE SPECIMEN Ordering Facility: [facility] Address: [address] [place] [address] Performed By: #### L [id number] #### [facility] CLIA [id number] [address] [place] [address] [place] Alpha 2 globulin Elph (U) [Mass fraction] 14.72 % Normal [facility] Comment on above: Order Comment: Speci men Type: URINE SPECIMEN Ordering Facility: [facility] Address: [address] [place] [address] Performed By: #### L [id number] #### [facility] CLIA [id number] [address] [place] [address] [place] Beta globulin Elph (U) [Mass fraction] 15.45 % Normal [facility] Comment on above: Order Comment: Speci men Type: URINE SPECIMEN Ordering Facility: [facility] Address: [address] [place] [address] Performed By: #### L [id number] #### [facility] CLIA [id number] [address] [place] [address] [place] Gamma globulin Elph (U) [Mass fraction] 15.88 % Normal [facility] Comment on above: Order Comment: Speci men Type: URINE SPECIMEN Ordering Facility: [facility] Address: [address] [place] [address] Performed By: #### L [id number] #### [facility] CLIA [id number] [address] [place], [place] [id number] [place] Protein Fractions Elph Jose (U) [Interp] No definitive M protein is identified on protein electrophoresis. Normal No definitive M protein is identified on protein electrophore sis. [facility] Comment on above: Order Comment: Speci men Type: URINE SPECIMEN Ordering Facility: [facility] Address: [address] [place] [address] Performed By: #### L [id number] #### [facility] CLIA [id number] [address] [place] [address] [place] STAFF REVIEW (URINE ELECTRO) Reviewed by Daniel Hannon MD, Ph.D ([id number]) Normal [facility] Comment on above: Order Comment: Speci men Type: URINE SPECIMEN Ordering Facility: [facility] Address: [address] [place] [address] Performed By: #### L [id number] #### [facility] CLIA [id number] [address] [place] [address] [place] Immunoglobulin Aon 4 IMMUNOGLOB A QN 186 mg/dL Normal 87-352 [facility] Comment on above: Order Comment: Y Performed By: #### L 503.6550, L503.6150 #### [facility] [address] [place], [address] Immunoglobulin Raji 4 IMMUNOGLOB E QN 41 IU/mL Normal 6-495 [facility] Comment on above: Order Comment: Y Performed By: #### L 503.6550, L503.6150 #### [facility] [address] [place], [address] Immunoglobulin Torrey 4 IMMUNOGLOB G QN 785 mg/dL Normal 586-1602 [facility] Comment on above: Order Comment: Y Performed By: #### L 503.6550, L503.6150 #### [facility] [address] [place], [address] Immunoglobulin Mon 4 IMMUNOGLOB M QN 559 mg/dL High 26-217 [facility] Comment on above: Order Comment: Y Result Comment: Perf ormed at: - [facility] [address] [id number] [employer] Advisor: Han Das PhD, Phone: [phone] Performed By: #### L 503.6550, L503.6150 #### [facility] [address] [place], [address] Protein Electroph, Son 03-13 Albumin [Mass/Vol] 4.4 g/dL Normal 2.9-4.4 [facility] Comment on above: Order Comment: Y Performed By: #### L 503.6550, L503.6150 #### [facility] [address] [place], [address] Albumin/Globulin [Mass ratio] 1.4 {ratio} Normal 0.7-1.7 [facility] Comment on above: Order Comment: Y Performed By: #### L 503.6550, L503.6150 #### [facility] [address] [place], [address] ALPHA-1 GLOBUL 0.2 g/dL Normal 0.0-0.4 [facility] Comment on above: Order Comment: Y Performed By: #### L 503.6550, L503.6150 #### [facility] [address] [place], [address] ALPHA-2 GLOBUL 0.8 g/dL Normal 0.4-1.0 [facility] Comment on above: Order Comment: Y Performed By: #### L 503.6550, L503.6150 #### [facility] [address] [place], [address] BETA GLOBULIN 0.9 g/dL Normal 0.7-1.3 [facility] Comment on above: Order Comment: Y Performed By: #### L 503.6550, L503.6150 #### [facility] [address] [place], [address] GAMMA GLOBULIN 1.1 g/dL Normal 0.4-1.8 [facility] Comment on above: Order Comment: Y Performed By: #### L 503.6550, L503.6150 #### [facility] [address] [place], [address] Globulin (S) [Mass/Vol] 3.1 g/dL Normal 2.2-3.9 [facility] Comment on above: Order Comment: Y Performed By: #### L 503.6550, L503.6150 #### [facility] [address] [place], [address] INTERPRETATION Comment Normal . [facility] Comment on above: Order Comment: Y Result Comment: Prot ein electrophoresis scan will follow via computer, mail, or crusher dry ground mica delivery. Performed By: #### L 503.6550, L503.6150 #### [facility] [address] [place], [address] M-SPIKE 0.4 g/dL Abnormal Not Observed [facility] Comment on above: Order Comment: Y Performed By: #### L 503.6550, L503.6150 #### [facility] [address] [place], [address] NOTE: Comment Normal . [facility] Comment on above: Order Comment: Y Result Comment: The SPE pattern demonstrates a [...] of Bence-Lewis protein. Performed By: #### L 503.6550, L503.6150 #### [facility] [address] [place], [address] Protein [Mass/Vol] 7.5 g/dL Normal 6.0-8.5 [facility] Comment on above: Order Comment: Y Performed By: #### L 503.6550, L503.6150 #### [facility] [address] [place], [address] Ferritinon 03-12-2024 Ferritin [Mass/Vol] 28 ng/mL Normal 8-252 [facility] Comment on above: Performed By: #### L 503.6550, L503.6150 #### [facility] [address] [place], [address] Ironon 03-12-2024 Iron [Mass/Vol] 52 ug/dL Normal 50-170 [facility] Comment on above: Performed By: #### L 503.6550, L503.6150 #### [facility] [address] [place], [address] CBC W/Diff, Automatedon 11-20 Absolute Lymph 1.94 X10 3/uL Normal 0.83-4.51 [facility] Comment on above: Order Comment: Order Date: 08/30/23 Order Info: 0184-1 - CBCD Performed By: #### L 500.4050, L503.6150, L503.0105, L506.0250, L100.0100, L500.4100, L501.9985, L503.6075, L503.6550, L506.1000 #### [facility] [address] [place], [address] Absolute Neut 4.2 X10 3/uL Normal 2.0-7.7 [facility] Comment on above: Order Comment: Order Date: 08/30/23 Order Info: 0184-1 - CBCD Performed By: #### L 500.4050, L503.6150, L503.0105, L506.0250, L100.0100, L500.4100, L501.9985, L503.6075, L503.6550, L506.1000 #### [facility] [address] [place], [address] Basophils/100 WBC (Bld) 1.0 % Normal 0-1 [facility] Comment on above: Order Comment: Order Date: 08/30/23 Order Info: 0184-1 - CBCD Performed By: #### L 500.4050, L503.6150, L503.0105, L506.0250, L100.0100, L500.4100, L501.9985, L503.6075, L503.6550, L506.1000 #### [facility] [address] [place], [address] Eosinophils/100 WBC (Bld) 1.2 % Normal 0-5 [facility] Comment on above: Order Comment: Order Date: 08/30/23 Order Info: 0184-1 - CBCD Performed By: #### L 500.4050, L503.6150, L503.0105, L506.0250, L100.0100, L500.4100, L501.9985, L503.6075, L503.6550, L506.1000 #### [facility] [address] [place], [address] Erythrocyte distribution width (RBC) [Ratio] 13.8 % Normal 11.6-14.6 [facility] Comment on above: Order Comment: Order Date: 08/30/23 Order Info: 018- - CBCD Performed By: #### L 500.4050, L503.6150, L503.0105, L506.0250, L100.0100, L500.4100, L501.9985, L503.6075, L503.6550, L506.1000 #### [facility] [address] [facility] [place], [address] Hematocrit (Bld) [Volume fraction] 40.5 % Normal 37-47 [facility] Comment on above: Order Comment: Order Date: 08/30/23 Order Info: 0184-1 - CBCD Performed By: #### L 500.4050, L503.6150, L503.0105, L506.0250, L100.0100, L500.4100, L501.9985, L503.6075, L503.6550, L506.1000 #### [facility] [address] [place], [address] Hemoglobin (Bld) [Mass/Vol] 12.8 g/dL Normal 12.0-15.0 [facility] Comment on above: Order Comment: Order Date: 08/30/23 Order Info: 018- - CBCD Performed By: #### L 500.4050, L503.6150, L503.0105, L506.0250, L100.0100, L500.4100, L501.9985, L503.6075, L503.6550, L506.1000 #### [facility] [address] [place], [address] IG% 0.400 Normal 0.0-0.9 [facility] Comment on above: Order Comment: Order Date: 08/30/23 Order Info: 183- - CBCD Result Comment: IG% - Immature Granulocytes (promyelocytes, myelocytes and metamyelocytes) > 1% indicates that a LEFT SHIFT is Present. Performed By: #### L 500.4050, L503.6150, L503.0105, L506.0250, L100.0100, L500.4100, L501.9985, L503.6075, L503.6550, L506.1000 #### [facility] [address] [place], [address] Lymphocytes/100 WBC (Bld) 28.5 % Normal 19-41 [facility] Comment on above: Order Comment: Order Date: 08/30/23 Order Info: 018- - CBCD Performed By: #### L 500.4050, L503.6150, L503.0105, L506.0250, L100.0100, L500.4100, L501.9985, L503.6075, L503.6550, L506.1000 #### [facility] [address] [place], [address] MCH (RBC) [Entitic mass] 28.1 pg Normal 27.0-32.0 [facility] Comment on above: Order Comment: Order Date: 08/30/23 Order Info: 018-1 - CBCD Performed By: #### L 500.4050, L503.6150, L503.0105, L506.0250, L100.0100, L500.4100, L501.9985, L503.6075, L503.6550, L506.1000 #### [facility] [address] [place], [address] MCHC (RBC) [Mass/Vol] 31.6 g/dL Low 32-36 [facility] Comment on above: Order Comment: Order Date: 08/30/23 Order Info: 018- - CBCD Performed By: #### L 500.4050, L503.6150, L503.0105, L506.0250, L100.0100, L500.4100, L501.9985, L503.6075, L503.6550, L506.1000 #### [facility] [address] [place], [address] MCV (RBC) [Entitic vol] 88.8 fL Normal 81-99 [facility] Comment on above: Order Comment: Order Date: 08/30/23 Order Info: 018- - CBCD Performed By: #### L 500.4050, L503.6150, L503.0105, L506.0250, L100.0100, L500.4100, L501.9985, L503.6075, L503.6550, L506.1000 #### [facility] [address] [place], [address] Monocytes/100 WBC (Bld) 7.1 % Normal 0-10 [facility] Comment on above: Order Comment: Order Date: 08/30/23 Order Info: 0184-1 - CBCD Performed By: #### L 500.4050, L503.6150, L503.0105, L506.0250, L100.0100, L500.4100, L501.9985, L503.6075, L503.6550, L506.1000 #### [facility] [address] [place], [address] Neutrophils/100 WBC (Bld) 61.8 % Normal 47-70 [facility] Comment on above: Order Comment: Order Date: 08/30/23 Order Info: 0184-1 - CBCD Performed By: #### L 500.4050, L503.6150, L503.0105, L506.0250, L100.0100, L500.4100, L501.9985, L503.6075, L503.6550, L506.1000 #### [facility] [address] [place], [address] Nucleated RBC (Bld) [#/Vol] 0 10*3/uL Normal 0-5 [facility] Comment on above: Order Comment: Order Date: 08/30/23 Order Info: 0184- - CBCD Performed By: #### L 500.4050, L503.6150, L503.0105, L506.0250, L100.0100, L500.4100, L501.9985, L503.6075, L503.6550, L506.1000 #### [facility] [address] [place], [address] Platelet mean volume (Bld) [Entitic vol] 10.3 fL Normal 6.2-12.0 [facility] Comment on above: Order Comment: Order Date: 08/30/23 Order Info: 0184-1 - CBCD Performed By: #### L 500.4050, L503.6150, L503.0105, L506.0250, L100.0100, L500.4100, L501.9985, L503.6075, L503.6550, L506.1000 #### [facility] [address] [place], [address] Platelets (Bld) [#/Vol] 295 10*3/uL Normal 150-450 [facility] Comment on above: Order Comment: Order Date: 08/30/23 Order Info: 0184-1 - CBCD Performed By: #### L 500.4050, L503.6150, L503.0105, L506.0250, L100.0100, L500.4100, L501.9985, L503.6075, L503.6550, L506.1000 #### [facility] [address] [place], [address] RBC (Bld) [#/Vol] 4.56 10*6/uL Normal 4.2-5.4 [facility] Comment on above: Order Comment: Order Date: 08/30/23 Order Info: 0184- - CBCD Performed By: #### L 500.4050, L503.6150, L503.0105, L506.0250, L100.0100, L500.4100, L501.9985, L503.6075, L503.6550, L506.1000 #### [facility] [address] [place], [address] RDW SD 44.7 fl High 35.1-43.9 [facility] Comment on above: Order Comment: Order Date: 08/30/23 Order Info: 0184-1 - CBCD Performed By: #### L 500.4050, L503.6150, L503.0105, L506.0250, L100.0100, L500.4100, L501.9985, L503.6075, L503.6550, L506.1000 #### [facility] [address] [place], [address] WBC (Bld) [#/Vol] 6.8 10*3/uL Normal 4.4-11.0 [facility] Comment on above: Order Comment: Order Date: 08/30/23 Order Info: 0184-1 - CBCD Performed By: #### L 500.4050, L503.6150, L503.0105, L506.0250, L100.0100, L500.4100, L501.9985, L503.6075, L503.6550, L506.1000 #### [facility] [address] [place], [place], [address] Comprehensive Metabolic Prof ilon 12-13-2023 Albumin [Mass/Vol] 3.9 g/dL Normal 3.2-5.0 [facility] Comment on above: Order Comment: Order Date: 08/30/23 Order Info: 785-05 - CMP Order Info: - LIPID Order Info: 2499-11 - TIBC Order Info: 2497-08 - FE Order Info: 2275-08 - DARRYL Order Info: 2283-12 - FOLS N Performed By: #### L 500.4050, L503.6150, L503.0105, L506.0250, L100.0100, L500.4100, L501.9985, L503.6075, L503.6550, L506.1000 #### [facility] [address] [place], [place], [address] [phone] Albumin/Globulin [Mass ratio] 1.0 {ratio} Normal 0.9-2.4 [facility] Comment on above: Order Comment: Order Date: 08/30/23 Order Info: 785-05 - CMP Order Info: - LIPID Order Info: 2499-11 TIBC Order Info: 2497-08 - FE Order Info: 2275-08 - DARRYL Order Info: 2283-12 - FOLS N Performed By: #### L 500.4050, L503.6150, L503.0105, L506.0250, L100.0100, L500.4100, L501.9985, L503.6075, L503.6550, L506.1000 #### [facility] [address] [place], [place], [address] ALK P 35 U/L Low 45-117 [facility] Comment on above: Order Comment: Order Date: 08/30/23 Order Info: 0786 - CMP Order Info: [id number] - LIPID Order Info: 2499-11 TIBC Order Info: 2497-08 FE Order Info: 2275-08 DARRYL Order Info: 2283-12 - FOLS N Performed By: #### L 500.4050, L503.6150, L503.0105, L506.0250, L100.0100, L500.4100, L501.9985, L503.6075, L503.6550, L506.1000 #### [facility] [address] [place], [place], [address] ALT [Catalytic activity/Vol] 17 U/L Normal 13-56 [facility] Comment on above: Order Comment: Order Date: 08/30/23 Order Info: 785-05 - CMP Order Info: - LIPID Order Info: [id number] Order Info: 2497-08 FE Order Info: 2275-08 DARRYL Order Info: 2283-12 - FOLS N Performed By: #### L 500.4050, L503.6150, L503.0105, L506.0250, L100.0100, L500.4100, L501.9985, L503.6075, L503.6550, L506.1000 #### [facility] [address] [place], [place], [address] AST [Catalytic activity/Vol] 19 U/L Normal 15-37 [facility] Comment on above: Order Comment: Order Date: 08/30/23 Order Info: 0786 - CMP Order Info: 64744-0 - LIPID Order Info: 2499-11 TIBC Order Info: 2497-08 - FE Order Info: 2275-08 - DARRYL Order Info: 2283-12 - FOLS N Performed By: #### L 500.4050, L503.6150, L503.0105, L506.0250, L100.0100, L500.4100, L501.9985, L503.6075, L503.6550, L506.1000 #### [facility] [address] [place], [address] Bilirubin [Mass/Vol] 0.40 mg/dL Normal 0.20-1.00 [facility] Comment on above: Order Comment: Order Date: 08/30/23 Order Info: 785- - CMP Order Info: - LIPID Order Info: 2499-11 - TIBC Order Info: 2497-08 - FE Order Info: 2275-08 - DARRYL Order Info: 2283-12 - FOLS N Result Comment: For patients on eltrombopag therapy, use of Dimension [place] TBIL is not recommended. Performed By: #### L 500.4050, L503.6150, L503.0105, L506.0250, L100.0100, L500.4100, L501.9985, L503.6075, L503.6550, L506.1000 #### [facility] [address] [place], [address] BUN/CRE 14.1 RATIO Normal 10-20 [facility] Comment on above: Order Comment: Order Date: 08/30/23 Order Info: 785-05 - CMP Order Info: - LIPID Order Info: 2499-11 - TIBC Order Info: 2497-08 - FE Order Info: 2275-08 - DARRYL Order Info: 2283-12 - FOLS N Performed By: #### L 500.4050, L503.6150, L503.0105, L506.0250, L100.0100, L500.4100, L501.9985, L503.6075, L503.6550, L506.1000 #### [facility] [address] [place], [address] CA,Total 9.6 mg/dL Normal 8.5-10.1 [facility] Comment on above: Order Comment: Order Date: 08/30/23 Order Info: 785- - CMP Order Info: - LIPID Order Info: 2499-11 - TIBC Order Info: 2497-08 - FE Order Info: 2275-08 - DARRYL Order Info: 228-8 - FOLS N Performed By: #### L 500.4050, L503.6150, L503.0105, L506.0250, L100.0100, L500.4100, L501.9985, L503.6075, L503.6550, L506.1000 #### [facility] [address] [place], [address] Chloride [Moles/Vol] 103 mmol/L Normal 98-107 [facility] Comment on above: Order Comment: Order Date: 08/30/23 Order Info: 785-05 - CMP Order Info: - LIPID Order Info: 2499-11 TIBC Order Info: 2497-08 - FE Order Info: 2275-08 - DARRYL Order Info: 8 - FOLS N Performed By: #### L 500.4050, L503.6150, L503.0105, L506.0250, L100.0100, L500.4100, L501.9985, L503.6075, L503.6550, L506.1000 #### [facility] [address] [place], [place], [id number] (517) CO2 [Moles/Vol] 28.0 mmol/L Normal 21.0-32.0 [facility] Comment on above: Order Comment: Order Date: 08/30/23 Order Info: 785-05 - CMP Order Info: - LIPID Order Info: 2499-11 - TIBC Order Info: 2497-08 - FE Order Info: 2275-08 - DARRYL Order Info: 228-8 - FOLS N Performed By: #### L 500.4050, L503.6150, L503.0105, L506.0250, L100.0100, L500.4100, L501.9985, L503.6075, L503.6550, L506.1000 #### [facility] [address] [place], [address] Creatinine [Mass/Vol] 0.85 mg/dL Normal 0.55-1.02 [facility] Comment on above: Order Comment: Order Date: 08/30/23 Order Info: 785-05 - CMP Order Info: - LIPID Order Info: [id number] - TIBC Order Info: 2497-08 - FE Order Info: [id number] - DARRYL Order Info: 2283-12 - FOLS N Result Comment: The validity of the calculated GFR GFRAA in patients over 70 years has not been determined. Clinical correlation is essential. Performed By: #### L 500.4050, L503.6150, L503.0105, L506.0250, L100.0100, L500.4100, L501.9985, L503.6075, L503.6550, L506.1000 #### [facility] [address] [place], [place], [id number] EST GFR - AA 86 mL/min Normal >60 [facility] Comment on above: Order Comment: Order Date: 08/30/23 Order Info: 785-05 - CMP Order Info: - LIPID Order Info: 2499-11 TIBC Order Info: 2497-08 FE Order Info: 2275-08 - DARRYL Order Info: 2283-12 - FOLS N Result Comment: Afri can Citizen Of [place] GFR Calc Performed By: #### L 500.4050, L503.6150, L503.0105, L506.0250, L100.0100, L500.4100, L501.9985, L503.6075, L503.6550, L506.1000 #### [facility] [address] [place], [place], [address] GAP 8 Normal 5-15 [facility] Comment on above: Order Comment: Order Date: 08/30/23 Order Info: 785-05 - CMP Order Info: - LIPID Order Info: 2499-11 - TIBC Order Info: 2497-08 - FE Order Info: 2275-08 - DARRYL Order Info: 2283-12 - FOLS N Performed By: #### L 500.4050, L503.6150, L503.0105, L506.0250, L100.0100, L500.4100, L501.9985, L503.6075, L503.6550, L506.1000 #### [facility] [address] [place], [address] GFR/1.73 sq M.predicted among non-blacks MDRD (S/P/Bld) [Vol rate/Area] 71 mL/min/{1.73_m2} Normal >60 [facility] Comment on above: Order Comment: Order Date: 08/30/23 Order Info: 07 - CMP Order Info: [id number] - LIPID Order Info: 2499-11 - TIBC Order Info: 2497-08 Order Info: 2275-08 - DARRYL Order Info: 2283-12 - FOLS N Result Comment: Non- GFR Calc Performed By: #### L 500.4050, L503.6150, L503.0105, L506.0250, L100.0100, L500.4100, L501.9985, L503.6075, L503.6550, L506.1000 #### [facility] [address] [facility] [place], [address] Globulin (S) [Mass/Vol] 4.0 g/dL Normal 2.2-4.2 [facility] Comment on above: Order Comment: Order Date: 08/30/23 Order Info: 785-05 - CMP Order Info: [id number] - LIPID Order Info: 2499-11 - TIBC Order Info: 2497-08 - Order Info: 2275-08 - DARRYL Order Info: 2283-12 - FOLS N Performed By: #### L 500.4050, L503.6150, L503.0105, L506.0250, L100.0100, L500.4100, L501.9985, L503.6075, L503.6550, L506.1000 #### [facility] [address] [place], [place], [id number] Glucose [Mass/Vol] 90 mg/dL Normal 74-106 [facility] Comment on above: Order Comment: Order Date: 08/30/23 Order Info: 785-05 - CMP Order Info: - LIPID Order Info: 2499-11 - TIBC Order Info: 2497-08 - FE Order Info: 2275-08 - DARRYL Order Info: 2283-12 - FOLS N Performed By: #### L 500.4050, L503.6150, L503.0105, L506.0250, L100.0100, L500.4100, L501.9985, L503.6075, L503.6550, L506.1000 #### [facility] [address] [place], [place], [phone] Potassium [Moles/Vol] 4.0 mmol/L Normal 3.5-5.1 [facility] Comment on above: Order Comment: Order Date: 08/30/23 Order Info: 785-05 - CMP Order Info: - LIPID Order Info: 2499-11 - TIBC Order Info: 2497-08 - FE Order Info: 2275-08 DARRYL Order Info: 2283-12 - FOLS N Performed By: #### L 500.4050, L503.6150, L503.0105, L506.0250, L100.0100, L500.4100, L501.9985, L503.6075, L503.6550, L506.1000 #### [facility] [address] [place], [place], [address] [phone] Sodium [Moles/Vol] 139 mmol/L Normal 136-145 [facility] Comment on above: Order Comment: Order Date: 08/30/23 Order Info: 785-05 - CMP Order Info: - LIPID Order Info: 2499-11 - TIBC Order Info: 2497-08 - FE Order Info: 2275-08 - DARRYL Order Info: 2283-12 - FOLS N Performed By: #### L 500.4050, L503.6150, L503.0105, L506.0250, L100.0100, L500.4100, L501.9985, L503.6075, L503.6550, L506.1000 #### [facility] [address] [place], [place], [id number] T PROT 7.9 g/dL Normal 6.4-8.2 [facility] Comment on above: Order Comment: Order Date: 08/30/23 Order Info: 07- - CMP Order Info: - LIPID Order Info: 2499-11 - TIBC Order Info: 4 - FE Order Info: 2275-08 - DARRYL Order Info: 2283-12 - FOLS N Performed By: #### L 500.4050, L503.6150, L503.0105, L506.0250, L100.0100, L500.4100, L501.9985, L503.6075, L503.6550, L506.1000 #### [facility] [address] [facility] [address] [place], [place], [id number] [phone] Urea nitrogen [Mass/Vol] 12 mg/dL Normal 7-18 [facility] Comment on above: Order Comment: Order Date: 08/30/23 Order Info: 785-05 - CMP Order Info: [id number] - LIPID Order Info: 2499-11 - TIBC Order Info: 2497-08 - FE Order Info: 2275-08 - DARRYL Order Info: 2283-12 - FOLS N Performed By: #### L 500.4050, L503.6150, L503.0105, L506.0250, L100.0100, L500.4100, L501.9985, L503.6075, L503.6550, L506.1000 #### [facility] [address] [facility] [place], [place], [address] [phone] Ferritinon 12-13-2023 Ferritin [Mass/Vol] 20 ng/mL Normal 8-252 [facility] Comment on above: Order Comment: Order Date: 08/30/23Order Info: 0786-1 - CMPOrder Info: [id number] - LIPIDOrder Info: 2499-11 - TIBCOrder Info: 2497-08 - FEOrder Info: 2275-08 - FEROrder Info: 2283-12 - FOLSN Performed By: #### L 500.4050, L503.6150, L503.0105, L506.0250, L100.0100, L500.4100, L501.9985, L503.6075, L503.6550, L506.1000 ####[facility] [address] [place], [place], [phone] Folates, (Folic Acid)on 11-20 FOLATES 40.20 ng/mL Normal 3.1-55.4 [facility] Comment on above: Order Comment: Order Date: 08/30/23Order Info: 0786-1 - CMPOrder Info: [id number] - LIPIDOrder Info: 2499-11 - TIBCOrder Info: 2497-08 - FEOrder Info: 2275-08 - FEROrder Info: 2283-12 - FOLSN Performed By: #### L 500.4050, L503.6150, L503.0105, L506.0250, L100.0100, L500.4100, L501.9985, L503.6075, L503.6550, L506.1000 ####[facility] [address] [place], [place], [phone]) Hemoglobin A1con 12-13-2023 HbA1c (Bld) [Mass fraction] 5.3 % Normal 3.8-5.6 [facility] Comment on above: Order Comment: Order Date: 08/30/23 Order Info: [id number] - A1C Result Comment: Norm al < 5.7 % Prediabetic 5.7 - 6.4 % Diabetic >or= 6.5 % Please note range changes. Performed By: #### L 500.4050, L503.6150, L503.0105, L506.0250, L100.0100, L500.4100, L501.9985, L503.6075, L503.6550, L506.1000 #### [facility] [address] [place], [place], [id number] Ironon 12-13-2023 Iron [Mass/Vol] 44 ug/dL Low 50-170 [facility] Comment on above: Order Comment: Order Date: 08/30/23Order Info: 86- - CMPOrder Info: [id number] - LIPIDOrder Info: 7 - TIBCOrder Info: 2497-08 - FEOrder Info: 2275-08 - FEROrder Info: 8 - FOLSN Performed By: #### L 500.4050, L503.6150, L503.0105, L506.0250, L100.0100, L500.4100, L501.9985, L503.6075, L503.6550, L506.1000 ####[facility] [address] [place], [place], [phone] Iron Binding Capacity,Totalo n 12-13-2023 TIBC 356 ug/dL Normal 250-450 [facility] Comment on above: Order Comment: Order Date: 08/30/23Order Info: 785-05 - CMPOrder Info: - LIPIDOrder Info: [id number] - TIBCOrder Info: 2497-08 - FEOrder Info: 2275-08 - FEROrder Info: 2283-12 - FOLSN Performed By: #### L 500.4050, L503.6150, L503.0105, L506.0250, L100.0100, L500.4100, L501.9985, L503.6075, L503.6550, L506.1000 ####[facility] [address] [place], [place], [phone] Lipid Profileon 12-13-2023 Cholesterol [Mass/Vol] 133 mg/dL Normal 200 [facility] Comment on above: Order Comment: Order Date: 08/30/23 Order Info: 785- - CMP Order Info: [id number] - LIPID Order Info: 7 - TIBC Order Info: 2498-4 - FE Order Info: 2275-08 DARRYL Order Info: 2283-12 - FOLS N Result Comment: <200 mg/dL Desirable 200-240 mg/dL Borderline >240 mg/dL High Risk Performed By: #### L 500.4050, L503.6150, L503.0105, L506.0250, L100.0100, L500.4100, L501.9985, L503.6075, L503.6550, L506.1000 #### [facility] [address] [place], [address] Cholesterol in HDL [Mass/Vol] 62 mg/dL Normal [facility] Comment on above: Order Comment: Order Date: 08/30/23 Order Info: 0786- - CMP Order Info: [id number] - LIPID Order Info: [id number] Order Info: 2497-08 Order Info: 2275-08 Order Info: 2283-12 - FOLS N Result Comment: The drugs N-Acetylcysteine and Metamizole may falsely depress this assay. Reference Range HDL <40 mg/dL Low HDL Cholesterol HDL >or= 60 mg/dL High HDL Cholesterol Performed By: #### L 500.4050, L503.6150, L503.0105, L506.0250, L100.0100, L500.4100, L501.9985, L503.6075, L503.6550, L506.1000 #### [facility] [address] [place], [address] Cholesterol in LDL [Mass/Vol] 57 mg/dL Normal 0-130 [facility] Comment on above: Order Comment: Order Date: 08/30/23 Order Info: 0786- - CMP Order Info: [id number] - LIPID Order Info: 2499-11 TIBC Order Info: 2497-08 Order Info: 2275-08 DARRYL Order Info: 2283-12 - FOLS N Performed By: #### L 500.4050, L503.6150, L503.0105, L506.0250, L100.0100, L500.4100, L501.9985, L503.6075, L503.6550, L506.1000 #### [facility] [address] [place], [address] Cholesterol in VLDL [Mass/Vol] 14 mg/dL Normal 5-40 [facility] Comment on above: Order Comment: Order Date: 08/30/23 Order Info: 0786- - CMP Order Info: [id number] - LIPID Order Info: 2499-11 - TIBC Order Info: 2497-08 - FE Order Info: 2275-08 - DARRYL Order Info: 2283-12 - FOLS N Performed By: #### L 500.4050, L503.6150, L503.0105, L506.0250, L100.0100, L500.4100, L501.9985, L503.6075, L503.6550, L506.1000 #### [facility] [address] [place], [address] Triglyceride [Mass/Vol] 70 mg/dL Normal [facility] Comment on above: Order Comment: Order Date: 08/30/23 Order Info: 0786- - CMP Order Info: [id number] - LIPID Order Info: 2499-11 - TIBC Order Info: 2497-08 - FE Order Info: 2275-08 - DARRYL Order Info: 2283-12 - FOLS N Result Comment: The drugs N-Acetylcysteine and Metamizole may falsely depress this assay. Serum Triglycerides Reference Interval Normal <150 mg/dL Borderline high 150 - 199 mg/dL High 200 - 499 mg/dL Very High > or = 500 mg/dL Performed By: #### L 500.4050, L503.6150, L503.0105, L506.0250, L100.0100, L500.4100, L501.9985, L503.6075, L503.6550, L506.1000 #### [facility] [address] [place], [address] Vitamin B12on 12-13-2023 Cobalamin (Vitamin B12) [Mass/Vol] 216 pg/mL Normal 211-911 [facility] Comment on above: Order Comment: Order Date: 08/30/23 Order Info: 2131-9 - B12 Order Info: [id number] - VITD25 Performed By: #### L 500.4050, L503.6150, L503.0105, L506.0250, L100.0100, L500.4100, L501.9985, L503.6075, L503.6550, L506.1000 #### [facility] [address] [place], [place], [id number] Vitamin D,25 Hydroxyon 12-12 Vitamin D 25-OH 71.0 ng/mL Normal [facility] Comment on above: Order Comment: Order Date: 08/30/23 Order Info: 2131-9 - B12 Order Info: [id number] - VITD25 Result Comment: Salma min D 25(OH) Status Range Deficiency <20 ng/mL (50nmol/L) Insufficiency 20 - 30 ng/mL (50 - 75 nmol/L) Sufficiency 30 - 100 ng/mL (75 - 250 nmol/L) Toxicity >100 ng/mL (>250 nmol/L) Performed By: #### L 500.4050, L503.6150, L503.0105, L506.0250, L100.0100, L500.4100, L501.9985, L503.6075, L503.6550, L506.1000 #### [facility] [address] [place], [place], [id number] Absolute lymphocyte countOrd ered By: Scott Steele on 08-23-2023 Lymphocytes Auto (Unsp spec) [#/Vol] 2.13 10*3/uL 0.83-4.51 [facility] Automated lymphocyte count a s percentage of total leukocytesOrdered By: Scott Steele on 08-23-2023 Lymphocytes/100 WBC Auto (Unsp spec) 24.7 % 19-41 [facility] Basophil percentageOrdered B y: Scott Steele on 08-23-2023 Basophil percentage 0 SEEN /hpf 0-5 [facility] Basophils/100 WBC (Bld) 1.0 % 0-1 [facility] Bilirubin [Mass/Vol] 0.50 mg/dL 0.20-1.00 [facility] Comment on above: For patients on eltr ombopag therapy, use of Dimension [place] TBIL is not recommended. Chloride [Moles/Vol] 102 mmol/L 98-107 [facility] Cholesterol [Mass/Vol] 151 mg/dL <200 [facility] Comment on above: <200 mg/dL Desirable 200-240 mg/dL Borderline >240 mg/dL High Risk Eosinophils/100 WBC (Bld) 1.6 % 0-5 [facility] Glucose [Mass/Vol] 110 mg/dL 74-106 [facility] Comment on above: Fasting Glucose resu lt from 100 to 125 mg/dL suggests IMPAIRED HOMEOSTASIS per A.D.A. criteria. Hemoglobin (Bld) [Mass/Vol] 13.5 g/dL 12.0-15.0 [facility] Monocytes/100 WBC (Bld) 8.6 % 0-10 [facility] Neutrophils (Bld) [#/Vol] 5.5 10*3/uL 2.0-7.7 [facility] Neutrophils/100 WBC (Bld) 63.6 % 47-70 [facility] Potassium [Moles/Vol] 4.3 mmol/L 3.5-5.1 [facility] Protein [Mass/Vol] 8.1 g/dL 6.4-8.2 [facility] Sodium [Moles/Vol] 136 mmol/L 136-145 [facility] Triglyceride [Mass/Vol] 101 mg/dL <199 [facility] Comment on above: The drugs N-Acetylcy steine and Metamizole may falsely depress this assay.Serum Triglycerides Reference Interval Normal <150 mg/dL Borderline high 150 - 199 mg/dL High 200 - 499 mg/dL Very High > or = 500 mg/dL WBC (Bld) [#/Vol] 8.6 10*3/uL 4.4-11.0 [facility] Bilirubin Test strip Ql (U)O rdered By: Scott Steele on 08-23-2023 Bilirubin Ql (U) Negative Negative [facility] Determination of erythrocyte mean corpuscular volume (MCV)Ordered By: Scott Steele on 08-23-2023 MCV (RBC) [Entitic vol] 89.0 fL 81-99 [facility] Erythrocyte distribution wid th ratioOrdered By: Scott Steele on 08-23-2023 Erythrocyte distribution width (RBC) [Ratio] 14.2 % 11.6-14.6 [facility] Erythrocyte distribution wid th standard deviationOrdered By: Scott Steele on 08-23-2023 Erythrocyte distribution width (RBC) [Entitic vol] 45.9 fL 35.1-43.9 [facility] Hematocrit Auto (Bld) [Volum e fraction]Ordered By: Scott Steele on 08-23-2023 Hematocrit (Bld) [Volume fraction] 41.9 % 37-47 [facility] Immature granulocytes/100 WB C Auto (Bld)Ordered By: Scott Steele on 08-23-2023 Immature granulocytes/100 WBC (Bld) 0.500 % 0.0-0.9 [facility] Comment on above: IG% - Immature Granu locytes (promyelocytes, myelocytes and metamyelocytes) > 1% indicates that a LEFT SHIFT is Present. Iron measurement (mass/mass) Ordered By: Scott Steele on 08-23-2023 Iron (Unsp spec) [Mass/Mass] 62 ug/dL 50-170 [facility] Ketones Test strip Ql (U)Ord ered By: Scott Steele on 08-23-2023 Ketones Ql (U) Negative Negative [facility] - Chemistry and C hemistry - challengeOrdered By: Scott Steele on 08-23-2023 Albumin/Globulin [Mass ratio] 1.0 {ratio} 0.9-2.4 [facility] ALP [Catalytic activity/Vol] 36 U/L 45-117 [facility] ALT [Catalytic activity/Vol] 22 U/L 13-56 [facility] Cholesterol in HDL [Mass/Vol] 66 mg/dL >40 [facility] Comment on above: The drugs N-Acetylcy steine and Metamizole may falsely depress this assay. Reference Range HDL <40 mg/dL Low HDL Cholesterol HDL >or= 60 mg/dL High HDL Cholesterol Cholesterol in LDL [Mass/Vol] 65 mg/dL 0-130 [facility] CO2 [Moles/Vol] 28.0 mmol/L 21.0-32.0 [facility] Cobalamin (Vitamin B12) [Mass/Vol] 288 pg/mL 211-911 [facility] Ferritin [Mass/Vol] 23 ng/mL 8-252 [facility] Globulin (S) [Mass/Vol] 4.0 g/dL 2.2-4.2 [facility] Urea nitrogen/Creatinine [Mass ratio] 21.5 mg/mg 10-20 [facility] - Hematology and Cell countsOrdered By: Scott Steele on 08-23-2023 MCH (RBC) [Entitic mass] 28.7 pg 27.0-32.0 [facility] MCHC (RBC) [Mass/Vol] 32.2 g/dL 32-36 [facility] Nucleated RBC/100 WBC (Bld) [Ratio] 0 % 0-5 [facility] Platelet mean volume (Bld) [Entitic vol] 12.2 fL 6.2-12.0 [facility] Platelets (Bld) [#/Vol] 231 10*3/uL 150-450 [facility] Mucus LM Ql (Urine sed)Order ed By: Scott Steele on 08-23-2023 Mucus Ql (Urine sed) 0 SEEN /hpf [facility] Nitrite Test strip Ql (U)Ord ered By: Scott Steele on 08-23-2023 Nitrite Ql (U) Negative Negative [facility] No Panel InformationOrdered By: Scott Steele on 08-23-2023 Estimated GFR (MDRD) Amer 78 mL/min >60 [facility] Comment on above: GFR Calc Estimated GFR (MDRD) Non-Af Amer 64 mL/min >60 [facility] Comment on above: Non- GFR Calc Total Iron Binding Capacity 373 ug/dL 250-450 [facility] Urine RBC 0 SEEN /hpf 0-5 [facility] Vitamin D 25-Hydroxy 70.6 ng/mL [facility] Comment on above: Vitamin D 25(OH) Sta tus Range Deficiency <20 ng/mL (50nmol/L) Insufficiency 20 - 30 ng/mL (50 - 75 nmol/L) Sufficiency 30 - 100 ng/mL (75 - 250 nmol/L) Toxicity >100 ng/mL (>250 nmol/L) VLDL Cholesterol 20 mg/dL 5-40 [facility] Protein Test strip Ql (U)Ord ered By: Scott Steele on 08-23-2023 Protein Ql (U) Negative Negative [facility] RBC Auto (Bld) [#/Vol]Ordere d By: Scott Steele on 08-23-2023 RBC (Bld) [#/Vol] 4.71 10*6/uL 4.2-5.4 [facility] Serum or plasma calcium char[place] urement (mass/volume)Ordered By: Scott Steele on 08-23-2023 Calcium [Mass/Vol] 10.0 mg/dL 8.5-10.1 [facility] Serum or plasma creatinine m easurement (mass/volume)Ordered By: Scott Steele on 08-23-2023 Creatinine [Mass/Vol] 0.93 mg/dL 0.55-1.02 [facility] Comment on above: The validity of the calculated GFR & GFRAA in patients over 70 years has not been determined. Clinical correlation is essential. Serum or plasma urea nitroge n measurement (mass/volume)Ordered By: Scott Steele on 08-23-2023 Urea nitrogen [Mass/Vol] 20 mg/dL 7-18 [facility] Squamous epithelial cells de tection in urine sediment by light microscopyOrdered By: Scott Steele on 08-23-2023 Epithelial cells.squamous LM Ql (Urine sed) 0-5 SEEN /hpf 5-10 [facility] Thin prep Papanicolaou smear with manual screeningOrdered By: Scott Steele on 08-23-2023 Thin prep Papanicolaou smear with manual screening < 6.0 mg/dL 0.0-11.8 [facility] Thin prep Papanicolaou smear with manual screening 4.1 g/dL 3.2-5.0 [facility] Thin prep Papanicolaou smear with manual screening 21 U/L 15-37 [facility] Thin prep Papanicolaou smear with manual screening 6 5-15 [facility] Urine blood detectionOrdered By: Scott Steele on 08-23-2023 RBC Ql (U) Negative Negative [facility] Urine clarityOrdered By: ySed Steele on 08-23-2023 Clarity (U) Clear Clear [facility] Urine color determinationOrd ered By: Scott Steele on 08-23-2023 Color (U) Straw Yellow [facility] Urine creatinine measurement (mass/volume)Ordered By: Scott Steele on 08-23-2023 Creatinine (U) [Mass/Vol] mg/dL NO RANGE EST. [facility] Urine glucose detectionOrder ed By: Scott Steele on 08-23-2023 Glucose Ql (U) 1000 mg/dl Normal [facility] Urine leukocyte esterase det ection by dipstickOrdered By: Scott Steele on 08-23-2023 Leukocyte esterase Test strip Ql (U) Negative Negative [facility] Urine pHOrdered By: Scott carter on 08-23-2023 pH (U) 7.0 [pH] 5.0 - 8.0 [facility] Urine protein/creatinine mas s ratioOrdered By: Scott Steele on 08-23-2023 Protein/Creatinine (U) [Mass ratio] TNP [facility] Comment on above: Test not performed Urine sediment bacteria coun t by microscopy (number/high power field)Ordered By: Scott Steele on 08-23-2023 Bacteria LM.HPF (Urine sed) [#/Area] 0 /[HPF] None Seen [facility] Urine specific gravity measu rementOrdered By: Scott Steele on 08-23-2023 Specific gravity (U) [Rel density] 1.005 1.002-1.030 [facility] Urine urobilinogen measureme ntOrdered By: Scott Steele on 08-23-2023 Urobilinogen Ql (U) Normal mg/dl Normal [facility] Whole blood hemoglobin A1c/t otal hemoglobin ratio (mass fraction)Ordered By: Scott Steele on 08-23-2023 HbA1c (Bld) [Mass fraction] 5.7 % 3.8-5.6 [facility] Comment on above: Normal < 5.7 % Predi abetic 5.7 - 6.4 % Diabetic >or= 6.5 % Please note range changes. Absolute lymphocyte countOrd ered By: Scott Steele on 04-21-2023 Lymphocytes Auto (Unsp spec) [#/Vol] 1.90 10*3/uL 0.83-4.51 [facility] Basophil percentageOrdered B y: Scott Steele on 04-21-2023 Basophil percentage 0 SEEN /hpf 0-5 [facility] Basophil percentage 4.0 mg/dL 2.5-4.9 [facility] Basophils/100 WBC (Bld) 0.8 % 0-1 [facility] Bilirubin [Mass/Vol] 0.40 mg/dL 0.20-1.00 [facility] Comment on above: For patients on eltr ombopag therapy, use of Dimension [place] TBIL is not recommended. Chloride [Moles/Vol] 102 mmol/L 98-107 [facility] Cholesterol [Mass/Vol] 134 mg/dL <200 [facility] Comment on above: <200 mg/dL Desirable 200-240 mg/dL Borderline >240 mg/dL High Risk Eosinophils/100 WBC (Bld) 1.2 % 0-5 [facility] Glucose [Mass/Vol] 109 mg/dL 74-106 [facility] Comment on above: Fasting Glucose resu lt from 100 to 125 mg/dL suggests IMPAIRED HOMEOSTASIS per A.D.A. criteria. Neutrophils (Bld) [#/Vol] 5.9 10*3/uL 2.0-7.7 [facility] Neutrophils/100 WBC (Bld) 68.6 % 47-70 [facility] Potassium [Moles/Vol] 4.1 mmol/L 3.5-5.1 [facility] Protein [Mass/Vol] 8.0 g/dL 6.4-8.2 [facility] Sodium [Moles/Vol] 136 mmol/L 136-145 [facility] Triglyceride [Mass/Vol] 108 mg/dL <199 [facility] Comment on above: The drugs N-Acetylcy steine and Metamizole may falsely depress this assay.Serum Triglycerides Reference Interval Normal <150 mg/dL Borderline high 150 - 199 mg/dL High 200 - 499 mg/dL Very High > or = 500 mg/dL WBC (Bld) [#/Vol] 8.7 10*3/uL 4.4-11.0 [facility] Bilirubin Test strip Ql (U)O rdered By: Scott Steele on 04-21-2023 Bilirubin Ql (U) Negative Negative [facility] Blood erythrocytes count (nu mber/volume)Ordered By: Scott Steele on 04-21-2023 RBC (Bld) [#/Vol] 4.68 10*6/uL 4.2-5.4 [facility] Blood hemoglobin measurement (mass/volume)Ordered By: Scott Steele on 04-21-2023 Hemoglobin (Bld) [Mass/Vol] 13.2 g/dL 12.0-15.0 [facility] Blood lymphocytes/100 leukoc ytesOrdered By: Scott Steele on 04-21-2023 Lymphocytes/100 WBC (Bld) 22.0 % 19-41 [facility] Blood monocytes/100 leukocyt esOrdered By: Scott Steele on 04-21-2023 Monocytes/100 WBC (Bld) 7.1 % 0-10 [facility] Blood platelet mean volumeOr dered By: Scott Steele on 04-21-2023 Platelet mean volume (Bld) [Entitic vol] 10.8 fL 6.2-12.0 [facility] Determination of erythrocyte mean corpuscular volume (MCV)Ordered By: Scott Steele on 04-21-2023 MCV (RBC) [Entitic vol] 88.0 fL 81-99 [facility] Hematocrit Auto (Bld) [Volum e fraction]Ordered By: Scott Steele on 04-21-2023 Hematocrit (Bld) [Volume fraction] 41.2 % 37-47 [facility] Iron measurement (mass/mass) Ordered By: Scott Steele on 04-21-2023 Iron (Unsp spec) [Mass/Mass] 49 ug/dL 50-170 [facility] Ketones Test strip Ql (U)Ord ered By: Scott Steele on 04-21-2023 Ketones Ql (U) Negative Negative [facility] - Chemistry and C hemistry - challengeOrdered By: Scott Steele on 04-21-2023 ALP [Catalytic activity/Vol] 34 U/L 45-117 [facility] ALT [Catalytic activity/Vol] 23 U/L 13-56 [facility] CO2 [Moles/Vol] 26.0 mmol/L 21.0-32.0 [facility] Cobalamin (Vitamin B12) [Mass/Vol] 252 pg/mL 211-911 [facility] Globulin (S) [Mass/Vol] 4.1 g/dL 2.2-4.2 [facility] Urea nitrogen/Creatinine [Mass ratio] 26.4 mg/mg 10-20 [facility] Laboratory - Hematology and Cell countsOrdered By: Scott Steele on 04-21-2023 Erythrocyte distribution width (RBC) [Entitic vol] 47.7 fL 35.1-43.9 [facility] Erythrocyte distribution width (RBC) [Ratio] 15.0 % 11.6-14.6 [facility] Immature granulocytes/100 WBC (Bld) 0.300 % 0.0-0.9 [facility] Comment on above: IG% - Immature Granu locytes (promyelocytes, myelocytes and metamyelocytes) > 1% indicates that a LEFT SHIFT is Present. MCH (RBC) [Entitic mass] 28.2 pg 27.0-32.0 [facility] Nucleated RBC/100 WBC (Bld) [Ratio] 0 % 0-5 [facility] MCHC Auto (RBC) [Mass/Vol]Or dered By: Scott Steele on 04-21-2023 MCHC (RBC) [Mass/Vol] 32.0 g/dL 32-36 [facility] Mucus LM Ql (Urine sed)Order ed By: Scott Steele on 04-21-2023 Mucus Ql (Urine sed) 0 SEEN /hpf [facility] Nitrite Test strip Ql (U)Ord ered By: Scott Steele on 04-21-2023 Nitrite Ql (U) Negative Negative [facility] No Panel InformationOrdered By: Kiara Pearce on 04-21-2023 Hepatitis B Core IgM Antibody Negative Negative [facility] Comment on above: Performed at: [address] [id number] Director: Han Das PhD, Phone: [phone] Hepatitis B Surface Antigen Non-Reactive Nonreactive [facility] No Panel InformationOrdered By: Scott Steele on 04-21-2023 Estimated GFR (MDRD) Amer 84 mL/min >60 [facility] Comment on above: GFR Calc Estimated GFR (MDRD) Non-Af Amer 69 mL/min >60 [facility] Comment on above: Non- GFR Calc Total Iron Binding Capacity 329 ug/dL 250-450 [facility] Urine Microalbumin/Creatinine Ratio 19.7 mg/g CRE <30 [facility] Vitamin D 25-Hydroxy 66.6 ng/mL [facility] Comment on above: Vitamin D 25(OH) Sta tus Range Deficiency <20 ng/mL (50nmol/L) Insufficiency 20 - 30 ng/mL (50 - 75 nmol/L) Sufficiency 30 - 100 ng/mL (75 - 250 nmol/L) Toxicity >100 ng/mL (>250 nmol/L) Platelets bldOrdered By: Syed Steele on 04-21-2023 Platelets (Bld) [#/Vol] 300 10*3/uL 150-450 [facility] Protein Test strip Ql (U)Ord ered By: Scott Steele on 04-21-2023 Protein Ql (U) Negative Negative [facility] Serum hepatitis B virus core antibody detectionOrdered By: Kiara Pearce on 04-21-2023 HBV core Ab Ql (S) Negative Negative [facility] Serum hepatitis B virus surf ladonna antibody IgG detectionOrdered By: Kiara Pearce on 04-21-2023 HBV surface IgG Ql (S) Non-Reactive [facility] Comment on above: Non Reactive: Incons istent with immunity less than <10 mIU/mL Reactive: Consistent with immunity greater than or equal to 10 mIU/mL Serum or plasma albumin charlotte urement (mass/volume)Ordered By: Scott Steele on 04-21-2023 Albumin [Mass/Vol] 3.9 g/dL 3.2-5.0 [facility] Serum or plasma albumin/glob ulin mass ratioOrdered By: Scott Steele on 04-21-2023 Albumin/Globulin [Mass ratio] 1.0 {ratio} 0.9-2.4 [facility] Serum or plasma calcium charlotte urement (mass/volume)Ordered By: Scott Steele on 04-21-2023 Calcium [Mass/Vol] 10.0 mg/dL 8.5-10.1 [facility] Serum or plasma cholesterol in HDL measurement (mass/volume)Ordered By: Scott Steele on 04-21-2023 Cholesterol in HDL [Mass/Vol] 57 mg/dL >40 [facility] Comment on above: The drugs N-Acetylcy steine and Metamizole may falsely depress this assay. Reference Range HDL <40 mg/dL Low HDL Cholesterol HDL >or= 60 mg/dL High HDL Cholesterol Serum or plasma cholesterol in VLDL measurement (mass/volume)Ordered By: Scott Steele on 04-21-2023 Cholesterol in VLDL [Mass/Vol] 22 mg/dL 5-40 [facility] Serum or plasma creatinine m easurement (mass/volume)Ordered By: Scott Steele on 04-21-2023 Creatinine [Mass/Vol] 0.87 mg/dL 0.55-1.02 [facility] Comment on above: The validity of the calculated GFR & GFRAA in patients over 70 years has not been determined. Clinical correlation is essential. Serum or plasma ferritin mitzy surement (mass/volume)Ordered By: Scott Steele on 04-21-2023 Ferritin [Mass/Vol] 23 ng/mL 8-252 [facility] Serum or plasma folate measu rement (mass/volume)Ordered By: Scott Steele on 04-21-2023 Folate [Mass/Vol] 29.10 ng/mL 3.1-55.4 [facility] Serum or plasma low density lipoprotein (LDL) cholesterol measurement (mass/volume)Ordered By: Scott Steele on 04-21-2023 Cholesterol in LDL [Mass/Vol] 55 mg/dL 0-130 [facility] Serum or plasma urea nitroge n measurement (mass/volume)Ordered By: Scott Steele on 04-21-2023 Urea nitrogen [Mass/Vol] 23 mg/dL 7-18 [facility] Squamous epithelial cells de tection in urine sediment by light microscopyOrdered By: Scott Steele on 04-21-2023 Epithelial cells.squamous LM Ql (Urine sed) 0 SEEN /hpf 5-10 [facility] Thin prep Papanicolaou smear with manual screeningOrdered By: Scott Steele on 04-21-2023 Thin prep Papanicolaou smear with manual screening 17 U/L 15-37 [facility] Thin prep Papanicolaou smear with manual screening 8 5-15 [facility] Thin prep Papanicolaou smear with manual screening 10.1 mg/L NO RANGE EST. [facility] Urine blood detectionOrdered By: Scott Steele on 04-21-2023 RBC Ql (U) Negative Negative [facility] RBC Ql (U) 0 SEEN /hpf 0-5 [facility] Urine clarityOrdered By: Syed Steele on 04-21-2023 Clarity (U) Clear Clear [facility] Urine color determinationOrd ered By: Scott Steele on 04-21-2023 Color (U) Yellow Yellow [facility] Urine creatinine measurement (mass/volume)Ordered By: Scott Steele on 04-21-2023 Creatinine (U) [Mass/Vol] 51.20 mg/dL NO RANGE EST. [facility] Urine glucose detectionOrder ed By: Scott Steele on 04-21-2023 Glucose Ql (U) 1000 mg/dl Normal [facility] Urine leukocyte esterase det ection by dipstickOrdered By: Scott Steele on 04-21-2023 Leukocyte esterase Test strip Ql (U) Negative Negative [facility] Urine pHOrdered By: Scott carter on 04-21-2023 pH (U) 5.0 [pH] 5.0 - 8.0 [facility] Urine protein measurement (m ass/volume)Ordered By: Scott Steele on 04-21-2023 Protein (U) [Mass/Vol] mg/dL 0.0-11.8 [facility] Urine protein/creatinine mas s ratioOrdered By: Scott Steele on 04-21-2023 Protein/Creatinine (U) [Mass ratio] 100 mg/g CRE 0-200 [facility] Urine sediment bacteria coun t by microscopy (number/high power field)Ordered By: Scott Steele on 04-21-2023 Bacteria LM.HPF (Urine sed) [#/Area] 0 /[HPF] None Seen [facility] Urine specific gravity measu rementOrdered By: Scott Steele on 04-21-2023 Specific gravity (U) [Rel density] 1.015 1.002-1.030 [facility] Urobilinogen Auto test strip Ql (U)Ordered By: Scott Steele on 04-21-2023 Urobilinogen Ql (U) Normal mg/dl Normal [facility] Whole blood hemoglobin A1c/t otal hemoglobin ratio (mass fraction)Ordered By: Scott Steele on 04-21-2023 HbA1c (Bld) [Mass fraction] 5.8 % 3.8-5.6 [facility] Comment on above: Normal < 5.7 % Predi abetic 5.7 - 6.4 % Diabetic >or= 6.5 % Please note range changes. Basophil percentageOrdered B y: Kiara Pearce on 03-21-2023 Cholesterol [Mass/Vol] 137 mg/dL <200 [facility] Comment on above: <200 mg/dL Desirable 200-240 mg/dL Borderline >240 mg/dL High Risk Triglyceride [Mass/Vol] 95 mg/dL <199 [facility] Comment on above: The drugs N-Acetylcy steine and Metamizole may falsely depress this assay.Serum Triglycerides Reference Interval Normal <150 mg/dL Borderline high 150 - 199 mg/dL High 200 - 499 mg/dL Very High > or = 500 mg/dL Mitotic spindle apparatus Ab [Titer] in Serum or PlasmaOrdered By: Kiara Pearce on 03-21-2023 Mitotic spindle apparatus Ab [Titer] Not Reportable [facility] No Panel InformationOrdered By: Kiara Pearce on 03-21-2023 CHRISSY Nuclear Membrane Pattern Not Reportable [facility] Hepatitis A IgM Antibody Negative Negative [facility] Comment on above: Performed at: - [address] [id number] Director: Han Das PhD, Phone: [phone] at: - [facility] [id number] Director: Melissa Benavides MD, Phone: [phone] Hepatitis C Antibody Non-Reactive Nonreactive [facility] Comment on above: Non Reactive: < 0.8 Equivocal: >/= 0.8 to < 1.0 Reactive: >/= 1.0The CDC recommends that a reactive/equivocal HCV antibody result be followed up by the HCV Nucleic Acid Amplificationtest (358140) Immunoglobulin E 30 IU/mL 6-495 [facility] Serum hepatitis B virus core antibody detectionOrdered By: Kiara Pearce on 03-21-2023 HBV core Ab Ql (S) Negative Negative [facility] Serum midbody antibody titer by immunofluorescenceOrdered By: Kiara Pearce on 03-21-2023 Midbody Ab IF (S) [Titer] Not Reportable [facility] Serum multiple nuclear dot p attern antinuclear IgG antibody (CHRISSY) titer by immunofluoOrdered By: Kiara Pearce on 03-21-2023 Multiple nuclear dots nuclear IgG pattern IF (S) [Titer] Not Reportable [facility] Serum neuronal nuclear antib hugo detection by immunofluorescenceOrdered By: Kiara Pearce on 03-21-2023 Neuronal nuclear Ab IF Ql (S) Not Reportable [facility] Serum nuclear antibody patte rn homogenous titer by immunofluorescenceOrdered By: Kiara Pearce on 03-21-2023 Homogenous nuclear Ab pattern IF (S) [Titer] Not Reportable [facility] Serum nuclear antibody titer by immunofluorescenceOrdered By: Kiara Pearce on 03-21-2023 Nuclear Ab IF (S) [Titer] Negative . [facility] Comment on above: Negative <1:80 Borde rline 1:80 Positive >1:80ICAP nomenclature: [id number] more information about Hep-2 cell patterns useANApatterns.org, the official website for theInternational Consensus on Antinuclear Antibody (CHRISSY)Patterns (ICAP).Performed at: [facility] [id number] Director: Han Das PhD, Phone: [phone] Serum or plasma IgA measurem ent (mass/volume)Ordered By: Kiara Pearce on 03-21-2023 IgA [Mass/Vol] 199 mg/dL 87-352 [facility] Serum or plasma IgG measurem ent (mass/volume)Ordered By: Kiara Pearce on 03-21-2023 IgG [Mass/Vol] 806 mg/dL [phone] [facility] Serum or plasma IgM measurem ent (mass/volume)Ordered By: Kiara Pearce on 03-21-2023 IgM [Mass/Vol] 584 mg/dL 26-217 [facility] Serum or plasma cholesterol in HDL measurement (mass/volume)Ordered By: Kiara Pearce on 03-21-2023 Cholesterol in HDL [Mass/Vol] 54 mg/dL >40 [facility] Comment on above: The drugs N-Acetylcy steine and Metamizole may falsely depress this assay. Reference Range HDL <40 mg/dL Low HDL Cholesterol HDL >or= 60 mg/dL High HDL Cholesterol Serum or plasma cholesterol in VLDL measurement (mass/volume)Ordered By: Kiara Pearce on 03-21-2023 Cholesterol in VLDL [Mass/Vol] 19 mg/dL 5-40 [facility] Serum or plasma low density lipoprotein (LDL) cholesterol measurement (mass/volume)Ordered By: Kiara Pearce on 03-21-2023 Cholesterol in LDL [Mass/Vol] 64 mg/dL 0-130 [facility] Serum or plasma thyroperoxid ase antibody assay (units/volume)Ordered By: Kiara Pearce on 03-21-2023 TPO Ab Qn 10 [IU]/mL 0-34 [facility] Serum proliferating cell nuc lear antigen (PCNA) antibody titer by immunofluorescenceOrdered By: Kiara Pearce on 03-21-2023 PCNA extractable nuclear Ab IF (S) [Titer] Not Reportable [facility] Serum rheumatoid factor dete ctionOrdered By: Kiara Pearce on 03-21-2023 Rheumatoid factor Ql (S) < 10.0 IU/mL <15 [facility] Serum speckled nuclear antib hugo pattern titerOrdered By: Kiara Pearce on 03-21-2023 Speckled nuclear Ab pattern (S) [Titer] Not Reportable [facility] Thin prep Papanicolaou smear with manual screeningOrdered By: Kiara Pearce on 03-21-2023 Thin prep Papanicolaou smear with manual screening Not Reportable [facility] Whole blood hemoglobin A1c/t otal hemoglobin ratio (mass fraction)Ordered By: Kiara Pearce on 03-21-2023 HbA1c (Bld) [Mass fraction] 5.6 % 3.8-5.6 [facility] Comment on above: Normal < 5.7 % Predi abetic 5.7 - 6.4 % Diabetic >or= 6.5 % Please note range changes. Absolute lymphocyte countOrd ered By: Scott Steele on 12-16-2022 Lymphocytes Auto (Unsp spec) [#/Vol] 2.18 10*3/uL 0.83-4.51 [facility] Basophil percentageOrdered B y: Scott Steele on 12-16-2022 Basophil percentage 0 SEEN /hpf 0-5 [facility] Basophil percentage 3.9 mg/dL 2.5-4.9 [facility] Basophils/100 WBC (Bld) 0.6 % 0-1 [facility] Bilirubin [Mass/Vol] 0.40 mg/dL 0.20-1.00 [facility] Comment on above: For patients on eltr ombopag therapy, use of Dimension [employer] [place] TBIL is not recommended. Chloride [Moles/Vol] 103 mmol/L 98-107 [facility] Cholesterol [Mass/Vol] 143 mg/dL <200 [facility] Comment on above: <200 mg/dL Desirable 200-240 mg/dL Borderline >240 mg/dL High Risk Eosinophils/100 WBC (Bld) 1.3 % 0-5 [facility] Glucose [Mass/Vol] 101 mg/dL 74-106 [facility] Comment on above: Fasting Glucose resu lt from 100 to 125 mg/dL suggests IMPAIRED HOMEOSTASIS per A.D.A. criteria. Neutrophils (Bld) [#/Vol] 5.5 10*3/uL 2.0-7.7 [facility] Neutrophils/100 WBC (Bld) 64.6 % 47-70 [facility] Potassium [Moles/Vol] 4.4 mmol/L 3.5-5.1 [facility] Protein [Mass/Vol] 8.0 g/dL 6.4-8.2 [facility] Sodium [Moles/Vol] 137 mmol/L 136-145 [facility] Triglyceride [Mass/Vol] 157 mg/dL <199 [facility] Comment on above: The drugs N-Acetylcy steine and Metamizole may falsely depress this assay.Serum Triglycerides Reference Interval Normal <150 mg/dL Borderline high 150 - 199 mg/dL High 200 - 499 mg/dL Very High > or = 500 mg/dL WBC (Bld) [#/Vol] 8.4 10*3/uL 4.4-11.0 [facility] Bilirubin Test strip Ql (U)O rdered By: Scott Steele on 12-16-2022 Bilirubin Ql (U) Negative Negative [facility] Blood erythrocytes count (nu mber/volume)Ordered By: Scott Steele on 12-16-2022 RBC (Bld) [#/Vol] 4.68 10*6/uL 4.2-5.4 [facility] Blood hemoglobin measurement (mass/volume)Ordered By: Scott Steele on 12-16-2022 Hemoglobin (Bld) [Mass/Vol] 12.7 g/dL 12.0-15.0 [facility] Blood lymphocytes/100 leukoc ytesOrdered By: Scott Steele on 12-16-2022 Lymphocytes/100 WBC (Bld) 25.9 % 19-41 [facility] Blood monocytes/100 leukocyt esOrdered By: Scott Steele on 12-16-2022 Monocytes/100 WBC (Bld) 7.2 % 0-10 [facility] Blood platelet mean volumeOr dered By: Scott Steele on 12-16-2022 Platelet mean volume (Bld) [Entitic vol] 11.7 fL 6.2-12.0 [facility] Determination of erythrocyte mean corpuscular volume (MCV)Ordered By: Scott Steele on 12-16-2022 MCV (RBC) [Entitic vol] 87.2 fL 81-99 [facility] Hematocrit Auto (Bld) [Volum e fraction]Ordered By: Scott Steele on 12-16-2022 Hematocrit (Bld) [Volume fraction] 40.8 % 37-47 [facility] Iron measurement (mass/mass) Ordered By: Scott Steele on 12-16-2022 Iron (Unsp spec) [Mass/Mass] 38 ug/dL 50-170 [facility] Ketones Test strip Ql (U)Ord ered By: Scott Steele on 12-16-2022 Ketones Ql (U) Negative Negative [facility] Laboratory - Chemistry and C hemistry - challengeOrdered By: Scott Steele on 12-16-2022 ALP [Catalytic activity/Vol] 41 U/L 45-117 [facility] ALT [Catalytic activity/Vol] 26 U/L 13-56 [facility] CO2 [Moles/Vol] 27.0 mmol/L 21.0-32.0 [facility] Cobalamin (Vitamin B12) [Mass/Vol] 289 pg/mL 211-911 [facility] Globulin (S) [Mass/Vol] 4.0 g/dL 2.2-4.2 [facility] Urea nitrogen/Creatinine [Mass ratio] 22.2 mg/mg 10-20 [facility] Laboratory - Hematology and Cell countsOrdered By: Scott Steele on 12-16-2022 Erythrocyte distribution width (RBC) [Entitic vol] 50.5 fL 35.1-43.9 [facility] Erythrocyte distribution width (RBC) [Ratio] 16.0 % 11.6-14.6 [facility] Immature granulocytes/100 WBC (Bld) 0.400 % 0.0-0.9 [facility] Comment on above: IG% - Immature Granu locytes (promyelocytes, myelocytes and metamyelocytes) > 1% indicates that a LEFT SHIFT is Present. MCH (RBC) [Entitic mass] 27.1 pg 27.0-32.0 [facility] Nucleated RBC/100 WBC (Bld) [Ratio] 0 % 0-5 [facility] MCHC Auto (RBC) [Mass/Vol]Or dered By: Scott Steele on 12-16-2022 MCHC (RBC) [Mass/Vol] 31.1 g/dL 32-36 [facility] Mucus LM Ql (Urine sed)Order ed By: Scott Steele on 12-16-2022 Mucus Ql (Urine sed) 0 SEEN /hpf [facility] Nitrite Test strip Ql (U)Ord ered By: Scott Steele on 12-16-2022 Nitrite Ql (U) Negative Negative [facility] No Panel InformationOrdered By: Scott Steele on 12-16-2022 Estimated GFR (MDRD) Amer 81 mL/min >60 [facility] Comment on above: GFR Calc Estimated GFR (MDRD) Non-Af Amer 67 mL/min >60 [facility] Comment on above: Non- GFR Calc Total Iron Binding Capacity 360 ug/dL 250-450 [facility] Urine Microalbumin/Creatinine Ratio 12.9 mg/g CRE <30 [facility] Vitamin D 25-Hydroxy 67.9 ng/mL [facility] Comment on above: Vitamin D 25(OH) Sta tus Range Deficiency <20 ng/mL (50nmol/L) Insufficiency 20 - 30 ng/mL (50 - 75 nmol/L) Sufficiency 30 - 100 ng/mL (75 - 250 nmol/L) Toxicity >100 ng/mL (>250 nmol/L) Platelets bldOrdered By: Syed Steele on 12-16-2022 Platelets (Bld) [#/Vol] 325 10*3/uL 150-450 [facility] Protein Test strip Ql (U)Ord ered By: Scott Steele on 12-16-2022 Protein Ql (U) Negative Negative [facility] Serum or plasma albumin charlotte urement (mass/volume)Ordered By: Scott Steele on 12-16-2022 Albumin [Mass/Vol] 4.0 g/dL 3.2-5.0 [facility] Serum or plasma albumin/glob ulin mass ratioOrdered By: Scott Steele on 12-16-2022 Albumin/Globulin [Mass ratio] 1.0 {ratio} 0.9-2.4 [facility] Serum or plasma calcium charlotte urement (mass/volume)Ordered By: Scott Steele on 12-16-2022 Calcium [Mass/Vol] 9.7 mg/dL 8.5-10.1 [facility] Serum or plasma cholesterol in HDL measurement (mass/volume)Ordered By: Scott Steele on 12-16-2022 Cholesterol in HDL [Mass/Vol] 54 mg/dL >40 [facility] Comment on above: The drugs N-Acetylcy steine and Metamizole may falsely depress this assay. Reference Range HDL <40 mg/dL Low HDL Cholesterol HDL >or= 60 mg/dL High HDL Cholesterol Serum or plasma cholesterol in VLDL measurement (mass/volume)Ordered By: Scott Steele on 12-16-2022 Cholesterol in VLDL [Mass/Vol] 31 mg/dL 5-40 [facility] Serum or plasma creatinine m easurement (mass/volume)Ordered By: Scott Steele on 12-16-2022 Creatinine [Mass/Vol] 0.90 mg/dL 0.55-1.02 [facility] Comment on above: The validity of the calculated GFR & GFRAA in patients over 70 years has not been determined. Clinical correlation is essential. Serum or plasma ferritin mitzy surement (mass/volume)Ordered By: Scott Steele on 12-16-2022 Ferritin [Mass/Vol] 17 ng/mL 8-252 [facility] Serum or plasma folate measu rement (mass/volume)Ordered By: Scott Steele on 12-16-2022 Folate [Mass/Vol] 25.90 ng/mL 3.1-55.4 [facility] Serum or plasma low density lipoprotein (LDL) cholesterol measurement (mass/volume)Ordered By: Scott Steele on 12-16-2022 Cholesterol in LDL [Mass/Vol] 58 mg/dL 0-130 [facility] Serum or plasma urea nitroge n measurement (mass/volume)Ordered By: Scott Steele on 12-16-2022 Urea nitrogen [Mass/Vol] 20 mg/dL 7-18 [facility] Squamous epithelial cells de tection in urine sediment by light microscopyOrdered By: Scott Steele on 12-16-2022 Epithelial cells.squamous LM Ql (Urine sed) 0-5 SEEN /hpf 5-10 [facility] Thin prep Papanicolaou smear with manual screeningOrdered By: Scott Steele on 12-16-2022 Thin prep Papanicolaou smear with manual screening 20 U/L 15-37 [facility] Thin prep Papanicolaou smear with manual screening 7 5-15 [facility] Thin prep Papanicolaou smear with manual screening 9.0 mg/L NO RANGE EST. [facility] Urine blood detectionOrdered By: Scott Steele on 12-16-2022 RBC Ql (U) Negative Negative [facility] RBC Ql (U) 0 SEEN /hpf 0-5 [facility] Urine clarityOrdered By: Syed Steele on 12-16-2022 Clarity (U) Clear Clear [facility] Urine color determinationOrd ered By: Scott Steele on 12-16-2022 Color (U) Yellow Yellow [facility] Urine creatinine measurement (mass/volume)Ordered By: Scott Steele on 12-16-2022 Creatinine (U) [Mass/Vol] 69.80 mg/dL NO RANGE EST. [facility] Urine glucose detectionOrder ed By: Scott Steele on 12-16-2022 Glucose Ql (U) 1000 mg/dl Normal [facility] Urine leukocyte esterase det ection by dipstickOrdered By: Scott Steele on 12-16-2022 Leukocyte esterase Test strip Ql (U) Negative Negative [facility] Urine pHOrdered By: Scott carter on 12-16-2022 pH (U) 5.0 [pH] 5.0 - 8.0 [facility] Urine protein measurement (m ass/volume)Ordered By: Scott Steele on 12-16-2022 Protein (U) [Mass/Vol] mg/dL 0.0-11.8 [facility] Urine protein/creatinine mas s ratioOrdered By: Scott Steele on 12-16-2022 Protein/Creatinine (U) [Mass ratio] TNP [facility] Comment on above: Test not performed Urine sediment bacteria coun t by microscopy (number/high power field)Ordered By: Scott Steele on 12-16-2022 Bacteria LM.HPF (Urine sed) [#/Area] 0 /[HPF] None Seen [facility] Urine specific gravity measu rementOrdered By: Scott Steele on 12-16-2022 Specific gravity (U) [Rel density] 1.015 1.002-1.030 [facility] Urobilinogen Auto test strip Ql (U)Ordered By: Scott Steele on 12-16-2022 Urobilinogen Ql (U) Normal mg/dl Normal [facility] Whole blood hemoglobin A1c/t otal hemoglobin ratio (mass fraction)Ordered By: Scott Steele on 12-16-2022 HbA1c (Bld) [Mass fraction] 6.4 % 3.8-5.6 [facility] Comment on above: Normal < 5.7 % Predi abetic 5.7 - 6.4 % Diabetic >or= 6.5 % Please note range changes. Absolute lymphocyte countOrd ered By: Dr. Steele on 09-21-2022 Lymphocytes Auto (Unsp spec) [#/Vol] 1.99 10*3/uL 0.83-4.51 [facility] Basophil percentageOrdered B y: Dr. Steele on 09-21-2022 Basophils/100 WBC (Bld) 0.7 % 0-1 [facility] Bilirubin [Mass/Vol] 0.40 mg/dL 0.20-1.00 [facility] Comment on above: For patients on eltr ombopag therapy, use of Dimension [employer] [place] TBIL is not recommended. Chloride [Moles/Vol] 105 mmol/L 98-107 [facility] Eosinophils/100 WBC (Bld) 1.1 % 0-5 [facility] Glucose [Mass/Vol] 103 mg/dL 74-106 [facility] Comment on above: Fasting Glucose resu lt from 100 to 125 mg/dL suggests IMPAIRED HOMEOSTASIS per A.D.A. criteria. Neutrophils (Bld) [#/Vol] 4.8 10*3/uL 2.0-7.7 [facility] Neutrophils/100 WBC (Bld) 64.0 % 47-70 [facility] Potassium [Moles/Vol] 4.3 mmol/L 3.5-5.1 [facility] Protein [Mass/Vol] 7.7 g/dL 6.4-8.2 [facility] Sodium [Moles/Vol] 139 mmol/L 136-145 [facility] WBC (Bld) [#/Vol] 7.5 10*3/uL 4.4-11.0 [facility] Blood erythrocytes count (nu mber/volume)Ordered By: Dr. Steele on 09-21-2022 RBC (Bld) [#/Vol] 4.41 10*6/uL 4.2-5.4 [facility] Blood hemoglobin measurement (mass/volume)Ordered By: Dr. Steele on 09-21-2022 Hemoglobin (Bld) [Mass/Vol] 11.5 g/dL 12.0-15.0 [facility] Blood lymphocytes/100 leukoc ytesOrdered By: Dr. Steele on 09-21-2022 Lymphocytes/100 WBC (Bld) 26.4 % 19-41 [facility] Blood monocytes/100 leukocyt esOrdered By: Dr. Steele on 09-21-2022 Monocytes/100 WBC (Bld) 7.4 % 0-10 [facility] Blood platelet mean volumeOr dered By: Dr. tSeele on 09-21-2022 Platelet mean volume (Bld) [Entitic vol] 10.9 fL 6.2-12.0 [facility] Determination of erythrocyte mean corpuscular volume (MCV)Ordered By: Dr. Steele on 09-21-2022 MCV (RBC) [Entitic vol] 83.9 fL 81-99 [facility] Hematocrit Auto (Bld) [Volum e fraction]Ordered By: Dr. Steele on 09-21-2022 Hematocrit (Bld) [Volume fraction] 37.0 % 37-47 [facility] Iron measurement (mass/mass) Ordered By: Dr. Steele on 09-21-2022 Iron (Unsp spec) [Mass/Mass] 32 ug/dL 50-170 [facility] Laboratory - Chemistry and C hemistry - challengeOrdered By: Dr. Steele on 09-21-2022 ALP [Catalytic activity/Vol] 41 U/L 45-117 [facility] ALT [Catalytic activity/Vol] 29 U/L 13-56 [facility] CO2 [Moles/Vol] 22.0 mmol/L 21.0-32.0 [facility] Cobalamin (Vitamin B12) [Mass/Vol] 284 pg/mL 211-911 [facility] Globulin (S) [Mass/Vol] 3.6 g/dL 2.2-4.2 [facility] Urea nitrogen/Creatinine [Mass ratio] 18.8 mg/mg 10-20 [facility] Laboratory - Hematology and Cell countsOrdered By: Dr. Steele on 09-21-2022 Erythrocyte distribution width (RBC) [Entitic vol] 49.4 fL 35.1-43.9 [facility] Erythrocyte distribution width (RBC) [Ratio] 16.2 % 11.6-14.6 [facility] Immature granulocytes/100 WBC (Bld) 0.400 % 0.0-0.9 [facility] Comment on above: IG% - Immature Granu locytes (promyelocytes, myelocytes and metamyelocytes) > 1% indicates that a LEFT SHIFT is Present. MCH (RBC) [Entitic mass] 26.1 pg 27.0-32.0 [facility] Nucleated RBC/100 WBC (Bld) [Ratio] 0 % 0-5 [facility] MCHC Auto (RBC) [Mass/Vol]Or dered By: Dr. Steele on 09-21-2022 MCHC (RBC) [Mass/Vol] 31.1 g/dL 32-36 [facility] No Panel InformationOrdered By: Dr. Steele on 09-21-2022 Estimated GFR (MDRD) Amer 71 mL/min >60 [facility] Comment on above: GFR Calc Estimated GFR (MDRD) Non-Af Amer 58 mL/min >60 [facility] Comment on above: Non- GFR Calc Total Iron Binding Capacity 368 ug/dL 250-450 [facility] Platelets bldOrdered By: Dr. Steele on 09-21-2022 Platelets (Bld) [#/Vol] 311 10*3/uL 150-450 [facility] Serum or plasma albumin charlotte urement (mass/volume)Ordered By: Dr. Steele on 09-21-2022 Albumin [Mass/Vol] 4.1 g/dL 3.2-5.0 [facility] Serum or plasma albumin/glob ulin mass ratioOrdered By: Dr. Steele on 09-21-2022 Albumin/Globulin [Mass ratio] 1.1 {ratio} 0.9-2.4 [facility] Serum or plasma calcium charlotte urement (mass/volume)Ordered By: Dr. Steele on 09-21-2022 Calcium [Mass/Vol] 9.6 mg/dL 8.5-10.1 [facility] Serum or plasma creatinine m easurement (mass/volume)Ordered By: Dr. Steele on 09-21-2022 Creatinine [Mass/Vol] 1.01 mg/dL 0.55-1.02 [facility] Comment on above: The validity of the calculated GFR & GFRAA in patients over 70 years has not been determined. Clinical correlation is essential. Serum or plasma ferritin mitzy surement (mass/volume)Ordered By: Dr. Steele on 09-21-2022 Ferritin [Mass/Vol] 10 ng/mL 8-252 [facility] Serum or plasma folate measu rement (mass/volume)Ordered By: Dr. Steele on 09-21-2022 Folate [Mass/Vol] 32.80 ng/mL 3.1-55.4 [facility] Serum or plasma urea nitroge n measurement (mass/volume)Ordered By: Dr. Steele on 09-21-2022 Urea nitrogen [Mass/Vol] 19 mg/dL 7-18 [facility] Thin prep Papanicolaou smear with manual screeningOrdered By: Dr. Steele on 09-21-2022 Thin prep Papanicolaou smear with manual screening 20 U/L 15-37 [facility] Thin prep Papanicolaou smear with manual screening 12 5-15 [facility] Whole blood hemoglobin A1c/t otal hemoglobin ratio (mass fraction)Ordered By: Dr. Steele on 09-21-2022 HbA1c (Bld) [Mass fraction] 7.9 % 3.8-5.6 [facility] Comment on above: Normal < 5.7 % Predi abetic 5.7 - 6.4 % Diabetic >or= 6.5 % Please note range changes. Basophil percentageOrdered B y: Dr. Steele on 09-15-2022 Chloride [Moles/Vol] 104 mmol/L 98-107 [facility] Glucose [Mass/Vol] 111 mg/dL 74-106 [facility] Comment on above: Fasting Glucose resu lt from 100 to 125 mg/dL suggests IMPAIRED HOMEOSTASIS per A.D.A. criteria. Potassium [Moles/Vol] 4.0 mmol/L 3.5-5.1 [facility] Sodium [Moles/Vol] 135 mmol/L 136-145 [facility] Iron measurement (mass/mass) Ordered By: Dr. Steele on 09-15-2022 Iron (Unsp spec) [Mass/Mass] 36 ug/dL 50-170 [facility] Laboratory - Chemistry and C hemistry - challengeOrdered By: Dr. Steele on 09-15-2022 CO2 [Moles/Vol] 25.0 mmol/L 21.0-32.0 [facility] Cobalamin (Vitamin B12) [Mass/Vol] 317 pg/mL 211-911 [facility] Urea nitrogen/Creatinine [Mass ratio] 19.6 mg/mg 10-20 [facility] No Panel InformationOrdered By: Dr. Steele on 09-15-2022 Estimated GFR (MDRD) Amer 74 mL/min >60 [facility] Comment on above: GFR Calc Estimated GFR (MDRD) Non-Af Amer 61 mL/min >60 [facility] Comment on above: Non- GFR Calc Total Iron Binding Capacity 354 ug/dL 250-450 [facility] Serum or plasma calcium charlotte urement (mass/volume)Ordered By: Dr. Steele on 09-15-2022 Calcium [Mass/Vol] 9.9 mg/dL 8.5-10.1 [facility] Serum or plasma creatinine m easurement (mass/volume)Ordered By: Dr. Steele on 09-15-2022 Creatinine [Mass/Vol] 0.97 mg/dL 0.55-1.02 [facility] Comment on above: The validity of the calculated GFR & GFRAA in patients over 70 years has not been determined. Clinical correlation is essential. Serum or plasma ferritin mitzy surement (mass/volume)Ordered By: Dr. Steele on 09-15-2022 Ferritin [Mass/Vol] 12 ng/mL 8-252 [facility] Serum or plasma urea nitroge n measurement (mass/volume)Ordered By: Dr. Steele on 09-15-2022 Urea nitrogen [Mass/Vol] 19 mg/dL 7-18 [facility] Thin prep Papanicolaou smear with manual screeningOrdered By: Dr. Steele on 09-15-2022 Thin prep Papanicolaou smear with manual screening 6 5-15 [facility] Absolute lymphocyte countOrd ered By: Dr. Steele on 07-28-2022 Lymphocytes Auto (Unsp spec) [#/Vol] 2.07 10*3/uL 0.83-4.51 [facility] Basophil percentageOrdered B y: Dr. Steele on 07-28-2022 Basophils/100 WBC (Bld) 1.1 % 0-1 [facility] Bilirubin [Mass/Vol] 0.40 mg/dL 0.20-1.00 [facility] Comment on above: For patients on eltr ombopag therapy, use of Dimension [place] TBIL is not recommended. Chloride [Moles/Vol] 99 mmol/L 98-107 [facility] Cholesterol [Mass/Vol] 129 mg/dL <200 [facility] Comment on above: <200 mg/dL Desirable 200-240 mg/dL Borderline >240 mg/dL High Risk Eosinophils/100 WBC (Bld) 1.6 % 0-5 [facility] Glucose [Mass/Vol] 265 mg/dL 74-106 [facility] Comment on above: Glucose result great er than or equal to 200 mg/dLsuggests DIABETES MELLITUS per A.D.A. criteria. Neutrophils (Bld) [#/Vol] 3.5 10*3/uL 2.0-7.7 [facility] Neutrophils/100 WBC (Bld) 55.0 % 47-70 [facility] Potassium [Moles/Vol] 4.2 mmol/L 3.5-5.1 [facility] Protein [Mass/Vol] 7.5 g/dL 6.4-8.2 [facility] Sodium [Moles/Vol] 134 mmol/L 136-145 [facility] Triglyceride [Mass/Vol] 128 mg/dL <199 [facility] Comment on above: The drugs N-Acetylcy steine and Metamizole may falsely depress this assay.Serum Triglycerides Reference Interval Normal <150 mg/dL Borderline high 150 - 199 mg/dL High 200 - 499 mg/dL Very High > or = 500 mg/dL WBC (Bld) [#/Vol] 6.4 10*3/uL 4.4-11.0 [facility] Blood erythrocytes count (nu mber/volume)Ordered By: Dr. Steele on 07-28-2022 RBC (Bld) [#/Vol] 4.51 10*6/uL 4.2-5.4 [facility] Blood hemoglobin measurement (mass/volume)Ordered By: Dr. Steele on 07-28-2022 Hemoglobin (Bld) [Mass/Vol] 11.4 g/dL 12.0-15.0 [facility] Blood lymphocytes/100 leukoc ytesOrdered By: Dr. Steele on 07-28-2022 Lymphocytes/100 WBC (Bld) 32.2 % 19-41 [facility] Blood monocytes/100 leukocyt esOrdered By: Dr. Steele on 07-28-2022 Monocytes/100 WBC (Bld) 9.3 % 0-10 [facility] Blood platelet mean volumeOr dered By: Dr. Steele on 07-28-2022 Platelet mean volume (Bld) [Entitic vol] 11.1 fL 6.2-12.0 [facility] Determination of erythrocyte mean corpuscular volume (MCV)Ordered By: Dr. Steele on 07-28-2022 MCV (RBC) [Entitic vol] 80.9 fL 81-99 [facility] Hematocrit Auto (Bld) [Volum e fraction]Ordered By: Dr. Steele on 07-28-2022 Hematocrit (Bld) [Volume fraction] 36.5 % 37-47 [facility] Laboratory - Chemistry and C hemistry - challengeOrdered By: Dr. Steele on 07-28-2022 ALP [Catalytic activity/Vol] 42 U/L 45-117 [facility] ALT [Catalytic activity/Vol] 33 U/L 13-56 [facility] CO2 [Moles/Vol] 26.0 mmol/L 21.0-32.0 [facility] Globulin (S) [Mass/Vol] 3.6 g/dL 2.2-4.2 [facility] Urea nitrogen/Creatinine [Mass ratio] 16.7 mg/mg 10-20 [facility] Laboratory - Hematology and Cell countsOrdered By: Dr. Steele on 07-28-2022 Erythrocyte distribution width (RBC) [Entitic vol] 47.8 fL 35.1-43.9 [facility] Erythrocyte distribution width (RBC) [Ratio] 16.4 % 11.6-14.6 [facility] Immature granulocytes/100 WBC (Bld) 0.800 % 0.0-0.9 [facility] Comment on above: IG% - Immature Granu locytes (promyelocytes, myelocytes and metamyelocytes) > 1% indicates that a LEFT SHIFT is Present. MCH (RBC) [Entitic mass] 25.3 pg 27.0-32.0 [facility] Nucleated RBC/100 WBC (Bld) [Ratio] 0 % 0-5 [facility] MCHC Auto (RBC) [Mass/Vol]Or dered By: Dr. Steele on 07-28-2022 MCHC (RBC) [Mass/Vol] 31.2 g/dL 32-36 [facility] No Panel InformationOrdered By: Dr. Steele on 07-28-2022 Estimated GFR (MDRD) Amer 70 mL/min >60 [facility] Comment on above: GFR Calc Estimated GFR (MDRD) Non-Af Amer 58 mL/min >60 [facility] Comment on above: Non- GFR Calc Urine Microalbumin/Creatinine Ratio 45.5 mg/g CRE <30 [facility] Vitamin D 25-Hydroxy 55.9 ng/mL [facility] Comment on above: Vitamin D 25(OH) Sta tus Range Deficiency <20 ng/mL (50nmol/L) Insufficiency 20 - 30 ng/mL (50 - 75 nmol/L) Sufficiency 30 - 100 ng/mL (75 - 250 nmol/L) Toxicity >100 ng/mL (>250 nmol/L) Platelets bldOrdered By: Dr. Steele on 07-28-2022 Platelets (Bld) [#/Vol] 283 10*3/uL 150-450 [facility] Serum or plasma albumin charlotte urement (mass/volume)Ordered By: Dr. Steele on 07-28-2022 Albumin [Mass/Vol] 3.9 g/dL 3.2-5.0 [facility] Serum or plasma albumin/glob ulin mass ratioOrdered By: Dr. Steele on 07-28-2022 Albumin/Globulin [Mass ratio] 1.1 {ratio} 0.9-2.4 [facility] Serum or plasma calcium charlotte urement (mass/volume)Ordered By: Dr. Steele on 07-28-2022 Calcium [Mass/Vol] 9.4 mg/dL 8.5-10.1 [facility] Serum or plasma cholesterol in HDL measurement (mass/volume)Ordered By: Dr. Steele on 07-28-2022 Cholesterol in HDL [Mass/Vol] 49 mg/dL >40 [facility] Comment on above: The drugs N-Acetylcy steine and Metamizole may falsely depress this assay. Reference Range HDL <40 mg/dL Low HDL Cholesterol HDL >or= 60 mg/dL High HDL Cholesterol Serum or plasma cholesterol in VLDL measurement (mass/volume)Ordered By: Dr. Steele on 07-28-2022 Cholesterol in VLDL [Mass/Vol] 26 mg/dL 5-40 [facility] Serum or plasma creatinine m easurement (mass/volume)Ordered By: Dr. Steele on 07-28-2022 Creatinine [Mass/Vol] 1.02 mg/dL 0.55-1.02 [facility] Comment on above: The validity of the calculated GFR & GFRAA in patients over 70 years has not been determined. Clinical correlation is essential. Serum or plasma low density lipoprotein (LDL) cholesterol measurement (mass/volume)Ordered By: Dr. Steele on 07-28-2022 Cholesterol in LDL [Mass/Vol] 54 mg/dL 0-130 [facility] Serum or plasma urea nitroge n measurement (mass/volume)Ordered By: Dr. Steele on 07-28-2022 Urea nitrogen [Mass/Vol] 17 mg/dL 7-18 [facility] Thin prep Papanicolaou smear with manual screeningOrdered By: Dr. Steele on 07-28-2022 Thin prep Papanicolaou smear with manual screening 20 U/L 15-37 [facility] Thin prep Papanicolaou smear with manual screening 9 5-15 [facility] Thin prep Papanicolaou smear with manual screening 50.5 mg/L NO RANGE EST. [facility] Urine creatinine measurement (mass/volume)Ordered By: Dr. Steele on 07-28-2022 Creatinine (U) [Mass/Vol] 111.00 mg/dL NO RANGE EST. [facility] Whole blood hemoglobin A1c/t otal hemoglobin ratio (mass fraction)Ordered By: Dr. Steele on 07-28-2022 HbA1c (Bld) [Mass fraction] 11.0 % 3.8-5.6 [facility] Comment on above: Normal < 5.7 % Predi abetic 5.7 - 6.4 % Diabetic >or= 6.5 % Please note range changes. Absolute lymphocyte countOrd ered By: Kiara Pearce on 06-20-2022 Lymphocytes Auto (Unsp spec) [#/Vol] 2.20 10*3/uL 0.83-4.51 [facility] Basophil percentageOrdered B y: Kiara Pearce on 06-20-2022 Basophils/100 WBC (Bld) 0.8 % 0-1 [facility] Chloride [Moles/Vol] 102 mmol/L 98-107 [facility] Eosinophils/100 WBC (Bld) 1.9 % 0-5 [facility] Glucose [Mass/Vol] 256 mg/dL 74-106 [facility] Comment on above: Glucose result great er than or equal to 200 mg/dLsuggests DIABETES MELLITUS per A.D.A. criteria. Neutrophils (Bld) [#/Vol] 4.7 10*3/uL 2.0-7.7 [facility] Neutrophils/100 WBC (Bld) 60.5 % 47-70 [facility] Potassium [Moles/Vol] 4.4 mmol/L 3.5-5.1 [facility] Sodium [Moles/Vol] 138 mmol/L 136-145 [facility] WBC (Bld) [#/Vol] 7.8 10*3/uL 4.4-11.0 [facility] Blood erythrocytes count (nu mber/volume)Ordered By: Kiara Pearce on 06-20-2022 RBC (Bld) [#/Vol] 4.35 10*6/uL 4.2-5.4 [facility] Blood hemoglobin measurement (mass/volume)Ordered By: Kiara Pearce on 06-20-2022 Hemoglobin (Bld) [Mass/Vol] 10.9 g/dL 12.0-15.0 [facility] Blood lymphocytes/100 leukoc ytesOrdered By: Kiara Pearce on 06-20-2022 Lymphocytes/100 WBC (Bld) 28.2 % 19-41 [facility] Blood monocytes/100 leukocyt esOrdered By: Kiara Pearce on 06-20-2022 Monocytes/100 WBC (Bld) 8.2 % 0-10 [facility] Blood platelet mean volumeOr dered By: Kiara Pearce on 06-20-2022 Platelet mean volume (Bld) [Entitic vol] 11.8 fL 6.2-12.0 [facility] Determination of erythrocyte mean corpuscular volume (MCV)Ordered By: Kiara Pearce on 06-20-2022 MCV (RBC) [Entitic vol] 82.1 fL 81-99 [facility] Hematocrit Auto (Bld) [Volum e fraction]Ordered By: Kiara Pearce on 06-20-2022 Hematocrit (Bld) [Volume fraction] 35.7 % 37-47 [facility] Laboratory - Chemistry and C hemistry - challengeOrdered By: Kiara Pearce on 06-20-2022 CO2 [Moles/Vol] 24.0 mmol/L 21.0-32.0 [facility] Urea nitrogen/Creatinine [Mass ratio] 12.4 mg/mg 10-20 [facility] Laboratory - Hematology and Cell countsOrdered By: Kiara Pearce on 06-20-2022 Erythrocyte distribution width (RBC) [Entitic vol] 48.1 fL 35.1-43.9 [facility] Erythrocyte distribution width (RBC) [Ratio] 16.0 % 11.6-14.6 [facility] Immature granulocytes/100 WBC (Bld) 0.400 % 0.0-0.9 [facility] Comment on above: IG% - Immature Granu locytes (promyelocytes, myelocytes and metamyelocytes) > 1% indicates that a LEFT SHIFT is Present. MCH (RBC) [Entitic mass] 25.1 pg 27.0-32.0 [facility] Nucleated RBC/100 WBC (Bld) [Ratio] 0 % 0-5 [facility] MCHC Auto (RBC) [Mass/Vol]Or dered By: Kiara Pearce on 06-20-2022 MCHC (RBC) [Mass/Vol] 30.5 g/dL 32-36 [facility] No Panel InformationOrdered By: Kiara Pearce on 06-20-2022 Estimated GFR (MDRD) Amer 62 mL/min >60 [facility] Comment on above: GFR Calc Estimated GFR (MDRD) Non-Af Amer 51 mL/min >60 [facility] Comment on above: Non- GFR Calc Platelets bldOrdered By: Felton Pearce on 06-20-2022 Platelets (Bld) [#/Vol] 314 10*3/uL 150-450 [facility] Qualitative QuantiFERON-TB g old in tube testOrdered By: Kiara Pearce on 06-20-2022 M. tuberculosis tuberculin stim IFN-g Ql (Bld) 0.04 IU/mL . [facility] Serum hepatitis B virus core antibody detectionOrdered By: Kiara Pearce on 06-20-2022 HBV core Ab Ql (S) Negative Negative [facility] Comment on above: Performed at: - [facility] [address] [id number] Director: Han Das PhD, Phone: [phone] Serum or plasma calcium charlotte urement (mass/volume)Ordered By: Kiara Pearce on 06-20-2022 Calcium [Mass/Vol] 9.3 mg/dL 8.5-10.1 [facility] Serum or plasma creatinine m easurement (mass/volume)Ordered By: Kiara Pearce on 06-20-2022 Creatinine [Mass/Vol] 1.13 mg/dL 0.55-1.02 [facility] Comment on above: The validity of the calculated GFR & GFRAA in patients over 70 years has not been determined. Clinical correlation is essential. Serum or plasma urea nitroge n measurement (mass/volume)Ordered By: Kiara Pearce on 06-20-2022 Urea nitrogen [Mass/Vol] 14 mg/dL 7-18 [facility] Thin prep Papanicolaou smear with manual screeningOrdered By: Kiara Pearce on 06-20-2022 Thin prep Papanicolaou smear with manual screening 12 5-15 [facility] Thin prep Papanicolaou smear with manual screening Comment . [facility] Comment on above: QuantiFERON-TB Gold Plus is [...] smear with manual screening 0.03 IU/mL . [facility] Thin prep Papanicolaou smear with manual screening > 10.00 IU/mL . [facility] Thin prep Papanicolaou smear with manual screening Negative Negative [facility] Comment on above: No response to M [...] Auto (Unsp spec) [#/Vol] 2.47 10*3/uL 0.83-4.51 [facility] Basophil percentageOrdered B y: Miles Meza on 05-17-2022 Basophils/100 WBC (Bld) 0.9 % 0-1 [facility] Chloride [Moles/Vol] 101 mmol/L 98-107 [facility] Eosinophils/100 WBC (Bld) 2.2 % 0-5 [facility] Glucose [Mass/Vol] 140 mg/dL 74-106 [facility] Comment on above: Fasting Glucose resu lt greater than or equal to 126 mg/dL suggests DIABETES MELLITUS per A.D.A. criteria. Neutrophils (Bld) [#/Vol] 4.7 10*3/uL 2.0-7.7 [facility] Neutrophils/100 WBC (Bld) 56.7 % 47-70 [facility] Potassium [Moles/Vol] 4.4 mmol/L 3.5-5.1 [facility] Sodium [Moles/Vol] 137 mmol/L 136-145 [facility] WBC (Bld) [#/Vol] 8.2 10*3/uL 4.4-11.0 [facility] Blood erythrocytes count (nu mber/volume)Ordered By: Miles Meza on 05-17-2022 RBC (Bld) [#/Vol] 4.31 10*6/uL 4.2-5.4 [facility] Blood hemoglobin measurement (mass/volume)Ordered By: Miles Meza on 05-17-2022 Hemoglobin (Bld) [Mass/Vol] 10.9 g/dL 12.0-15.0 [facility] Blood lymphocytes/100 leukoc ytesOrdered By: Miles Meza on 05-17-2022 Lymphocytes/100 WBC (Bld) 30.1 % 19-41 [facility] Blood monocytes/100 leukocyt esOrdered By: Miles Meza on 05-17-2022 Monocytes/100 WBC (Bld) 9.4 % 0-10 [facility] Blood platelet mean volumeOr dered By: Miles Meza on 05-17-2022 Platelet mean volume (Bld) [Entitic vol] 11.3 fL 6.2-12.0 [facility] Determination of erythrocyte mean corpuscular volume (MCV)Ordered By: Miles Meza on 05-17-2022 MCV (RBC) [Entitic vol] 81.9 fL 81-99 [facility] Hematocrit Auto (Bld) [Volum e fraction]Ordered By: Miles Susana on 05-17-2022 Hematocrit (Bld) [Volume fraction] 35.3 % 37-47 [facility] Laboratory - Chemistry and C hemistry - challengeOrdered By: Harvard Susana on 05-17-2022 CO2 [Moles/Vol] 28.0 mmol/L 21.0-32.0 [facility] Urea nitrogen/Creatinine [Mass ratio] 13.0 mg/mg 10-20 [facility] Laboratory - Hematology and Cell countsOrdered By: Miles Meza on 05-17-2022 Erythrocyte distribution width (RBC) [Entitic vol] 47.2 fL 35.1-43.9 [facility] Erythrocyte distribution width (RBC) [Ratio] 15.9 % 11.6-14.6 [facility] Immature granulocytes/100 WBC (Bld) 0.700 % 0.0-0.9 [facility] Comment on above: IG% - Immature Granu locytes (promyelocytes, myelocytes and metamyelocytes) > 1% indicates that a LEFT SHIFT is Present. MCH (RBC) [Entitic mass] 25.3 pg 27.0-32.0 [facility] Nucleated RBC/100 WBC (Bld) [Ratio] 0 % 0-5 [facility] MCHC Auto (RBC) [Mass/Vol]Or dered By: Miles Meza on 05-17-2022 MCHC (RBC) [Mass/Vol] 30.9 g/dL 32-36 [facility] No Panel InformationOrdered By: Miles Meza on 05-17-2022 Estimated GFR (MDRD) Amer 72 mL/min >60 [facility] Comment on above: GFR Calc Estimated GFR (MDRD) Non-Af Amer 59 mL/min >60 [facility] Comment on above: Non- GFR Calc Platelets bldOrdered By: Jose Meza on 05-17-2022 Platelets (Bld) [#/Vol] 329 10*3/uL 150-450 [facility] Qualitative QuantiFERON-TB g old in tube testOrdered By: Miles Meza on 05-17-2022 M. tuberculosis tuberculin stim IFN-g Ql (Bld) 0.02 IU/mL . [facility] Serum hepatitis B virus core antibody detectionOrdered By: Miles Meza on 05-17-2022 HBV core Ab Ql (S) Negative Negative [facility] Comment on above: Performed at: [address] [id number] Director: Han Das PhD, Phone: [phone] Serum or plasma calcium charlotte urement (mass/volume)Ordered By: Miles Meza on 05-17-2022 Calcium [Mass/Vol] 9.7 mg/dL 8.5-10.1 [facility] Serum or plasma creatinine m easurement (mass/volume)Ordered By: Miles Meza on 05-17-2022 Creatinine [Mass/Vol] 1.00 mg/dL 0.55-1.02 [facility] Comment on above: The validity of the calculated GFR & GFRAA in patients over 70 years has not been determined. Clinical correlation is essential. Serum or plasma urea nitroge n measurement (mass/volume)Ordered By: Miles Meza on 05-17-2022 Urea nitrogen [Mass/Vol] 13 mg/dL 7-18 [facility] Thin prep Papanicolaou smear with manual screeningOrdered By: Miles Meza on 05-17-2022 Thin prep Papanicolaou smear with manual screening 8 5-15 [facility] Thin prep Papanicolaou smear with manual screening Comment . [facility] Comment on above: QuantiFERON-TB Gold Plus is [...] smear with manual screening 0.04 IU/mL . [facility] Thin prep Papanicolaou smear with manual screening 0.03 IU/mL . [facility] Thin prep Papanicolaou smear with manual screening > 10.00 IU/mL . [facility] Thin prep Papanicolaou smear with manual screening Negative Negative [facility] Comment on above: No response to M [...] on 03-15-2022 Chloride [Moles/Vol] 104 mmol/L 98-107 [facility] Glucose [Mass/Vol] 179 mg/dL 74-106 [facility] Comment on above: Fasting Glucose resu lt greater than or equal to 126 mg/dL suggests DIABETES MELLITUS per A.D.A. criteria. Potassium [Moles/Vol] 4.4 mmol/L 3.5-5.1 [facility] Sodium [Moles/Vol] 136 mmol/L 136-145 [facility] Laboratory - Chemistry and C hemistry - challengeOrdered By: Dr. Steele on 03-15-2022 CO2 [Moles/Vol] 26.0 mmol/L 21.0-32.0 [facility] Urea nitrogen/Creatinine [Mass ratio] 15.4 mg/mg - [facility] No Panel InformationOrdered By: Dr. Steele on 03-15-2022 Estimated GFR (MDRD) Amer 69 mL/min >60 [facility] Comment on above: GFR Calc Estimated GFR (MDRD) Non-Af Amer 57 mL/min >60 [facility] Comment on above: Non- GFR Calc Serum or plasma calcium charlotte urement (mass/volume)Ordered By: Dr. Steele on 03-15-2022 Calcium [Mass/Vol] 9.8 mg/dL 8.5-10.1 [facility] Serum or plasma creatinine m easurement (mass/volume)Ordered By: Dr. Steele on 03-15-2022 Creatinine [Mass/Vol] 1.04 mg/dL 0.55-1.02 [facility] Comment on above: The validity of the calculated GFR & GFRAA in patients over 70 years has not been determined. Clinical correlation is essential. Serum or plasma urea nitroge n measurement (mass/volume)Ordered By: Dr. Steele on 03-15-2022 Urea nitrogen [Mass/Vol] 16 mg/dL 7-18 [facility] Thin prep Papanicolaou smear with manual screeningOrdered By: Dr. Steele on 03-15-2022 Thin prep Papanicolaou smear with manual screening 6 5-15 [facility] Absolute lymphocyte countOrd ered By: Dr. Steele on 03-09-2022 Lymphocytes Auto (Unsp spec) [#/Vol] 2.29 10*3/uL 0.83-4.51 [facility] Basophil percentageOrdered B y: Dr. Steele on 03-09-2022 Basophils/100 WBC (Bld) 0.8 % 0-1 [facility] Bilirubin [Mass/Vol] 0.40 mg/dL 0.20-1.00 [facility] Comment on above: For patients on eltr ombopag therapy, use of [employer] [place] TBIL is not recommended. Chloride [Moles/Vol] 103 mmol/L 98-107 [facility] Cholesterol [Mass/Vol] 99 mg/dL <200 [facility] Comment on above: <200 mg/dL Desirable 200-240 mg/dL Borderline >240 mg/dL High Risk Eosinophils/100 WBC (Bld) 1.9 % 0-5 [facility] Glucose [Mass/Vol] 123 mg/dL 74-106 [facility] Comment on above: Fasting Glucose resu lt from 100 to 125 mg/dL suggests IMPAIRED HOMEOSTASIS per A.D.A. criteria. Neutrophils (Bld) [#/Vol] 5.7 10*3/uL 2.0-7.7 [facility] Neutrophils/100 WBC (Bld) 63.1 % 47-70 [facility] Potassium [Moles/Vol] 4.3 mmol/L 3.5-5.1 [facility] Protein [Mass/Vol] 7.7 g/dL 6.4-8.2 [facility] Sodium [Moles/Vol] 138 mmol/L 136-145 [facility] Triglyceride [Mass/Vol] 158 mg/dL <199 [facility] Comment on above: The drugs N-Acetylcy steine and Metamizole may falsely depress this assay.Serum Triglycerides Reference Interval Normal <150 mg/dL Borderline high 150 - 199 mg/dL High 200 - 499 mg/dL Very High > or = 500 mg/dL WBC (Bld) [#/Vol] 9.0 10*3/uL 4.4-11.0 [facility] Blood erythrocytes count (nu mber/volume)Ordered By: Dr. Steele on 03-09-2022 RBC (Bld) [#/Vol] 4.27 10*6/uL 4.2-5.4 [facility] Blood hemoglobin measurement (mass/volume)Ordered By: Dr. Steele on 03-09-2022 Hemoglobin (Bld) [Mass/Vol] 11.5 g/dL 12.0-15.0 [facility] Blood lymphocytes/100 leukoc ytesOrdered By: Dr. Steele on 03-09-2022 Lymphocytes/100 WBC (Bld) 25.6 % 19-41 [facility] Blood monocytes/100 leukocyt esOrdered By: Dr. Steele on 03-09-2022 Monocytes/100 WBC (Bld) 8.0 % 0-10 [facility] Blood platelet mean volumeOr dered By: Dr. Steele on 03-09-2022 Platelet mean volume (Bld) [Entitic vol] 10.7 fL 6.2-12.0 [facility] Determination of erythrocyte mean corpuscular volume (MCV)Ordered By: Dr. Steele on 03-09-2022 MCV (RBC) [Entitic vol] 84.5 fL 81-99 [facility] Hematocrit Auto (Bld) [Volum e fraction]Ordered By: Dr. Steele on 03-09-2022 Hematocrit (Bld) [Volume fraction] 36.1 % 37-47 [facility] Iron measurement (mass/mass) Ordered By: Dr. Steele on 03-09-2022 Iron (Unsp spec) [Mass/Mass] 33 ug/dL 50-170 [facility] Laboratory - Chemistry and C hemistry - challengeOrdered By: Dr. Steele on 03-09-2022 ALP [Catalytic activity/Vol] 42 U/L 45-117 [facility] ALT [Catalytic activity/Vol] 22 U/L 13-56 [facility] CO2 [Moles/Vol] 25.0 mmol/L 21.0-32.0 [facility] Cobalamin (Vitamin B12) [Mass/Vol] 202 pg/mL 211-911 [facility] Globulin (S) [Mass/Vol] 3.9 g/dL 2.2-4.2 [facility] Urea nitrogen/Creatinine [Mass ratio] 16.5 mg/mg 10-20 [facility] Laboratory - Hematology and Cell countsOrdered By: Dr. Steele on 03-09-2022 Erythrocyte distribution width (RBC) [Entitic vol] 47.0 fL 35.1-43.9 [facility] Erythrocyte distribution width (RBC) [Ratio] 15.5 % 11.6-14.6 [facility] Immature granulocytes/100 WBC (Bld) 0.600 % 0.0-0.9 [facility] Comment on above: IG% - Immature Granu locytes (promyelocytes, myelocytes and metamyelocytes) > 1% indicates that a LEFT SHIFT is Present. MCH (RBC) [Entitic mass] 26.9 pg 27.0-32.0 [facility] Nucleated RBC/100 WBC (Bld) [Ratio] 0 % 0-5 [facility] MCHC Auto (RBC) [Mass/Vol]Or dered By: Dr. Steele on 03-09-2022 MCHC (RBC) [Mass/Vol] 31.9 g/dL 32-36 [facility] No Panel InformationOrdered By: Dr. Steele on 03-09-2022 Estimated GFR (MDRD) Amer 69 mL/min >60 [facility] Comment on above: GFR Calc Estimated GFR (MDRD) Non-Af Amer 57 mL/min >60 [facility] Comment on above: Non- GFR Calc Total Iron Binding Capacity 323 ug/dL 250-450 [facility] Vitamin D 25-Hydroxy 74.0 ng/mL [facility] Comment on above: Vitamin D 25(OH) Sta tus Range Deficiency <20 ng/mL (50nmol/L) Insufficiency 20 - 30 ng/mL (50 - 75 nmol/L) Sufficiency 30 - 100 ng/mL (75 - 250 nmol/L) Toxicity >100 ng/mL (>250 nmol/L) Platelets bldOrdered By: Dr. Steele on 03-09-2022 Platelets (Bld) [#/Vol] 399 10*3/uL 150-450 [facility] Serum or plasma albumin charlotte urement (mass/volume)Ordered By: Dr. Steele on 03-09-2022 Albumin [Mass/Vol] 3.8 g/dL 3.2-5.0 [facility] Serum or plasma albumin/glob ulin mass ratioOrdered By: Dr. Steele on 03-09-2022 Albumin/Globulin [Mass ratio] 1.0 {ratio} 0.9-2.4 [facility] Serum or plasma calcium charlotte urement (mass/volume)Ordered By: Dr. Steele on 03-09-2022 Calcium [Mass/Vol] 9.4 mg/dL 8.5-10.1 [facility] Serum or plasma cholesterol in HDL measurement (mass/volume)Ordered By: Dr. Steele on 03-09-2022 Cholesterol in HDL [Mass/Vol] 39 mg/dL >40 [facility] Comment on above: The drugs N-Acetylcy steine and Metamizole may falsely depress this assay. Reference Range HDL <40 mg/dL Low HDL Cholesterol HDL >or= 60 mg/dL High HDL Cholesterol Serum or plasma cholesterol in VLDL measurement (mass/volume)Ordered By: Dr. Steele on 03-09-2022 Cholesterol in VLDL [Mass/Vol] 32 mg/dL 5-40 [facility] Serum or plasma creatinine m easurement (mass/volume)Ordered By: Dr. Steele on 03-09-2022 Creatinine [Mass/Vol] 1.03 mg/dL 0.55-1.02 [facility] Comment on above: The validity of the calculated GFR & GFRAA in patients over 70 years has not been determined. Clinical correlation is essential. Serum or plasma ferritin mitzy surement (mass/volume)Ordered By: Dr. Steele on 03-09-2022 Ferritin [Mass/Vol] 17 ng/mL 8-252 [facility] Serum or plasma iron saturat ion measurement (mass fraction)Ordered By: Dr. Steele on 03-09-2022 Iron saturation [Mass fraction] 10.2 % 15.0-55.0 [facility] Serum or plasma low density lipoprotein (LDL) cholesterol measurement (mass/volume)Ordered By: Dr. Steele on 03-09-2022 Cholesterol in LDL [Mass/Vol] 28 mg/dL 0-130 [facility] Serum or plasma urea nitroge n measurement (mass/volume)Ordered By: Dr. Steele on 03-09-2022 Urea nitrogen [Mass/Vol] 17 mg/dL 7-18 [facility] Thin prep Papanicolaou smear with manual screeningOrdered By: Dr. Steele on 03-09-2022 Thin prep Papanicolaou smear with manual screening 16 U/L 15-37 [facility] Thin prep Papanicolaou smear with manual screening 10 5-15 [facility] Whole blood hemoglobin A1c/t otal hemoglobin ratio (mass fraction)Ordered By: Dr. Steele on 03-09-2022 HbA1c (Bld) [Mass fraction] 7.4 % 3.8-5.6 [facility] Comment on above: Normal < 5.7 % Predi abetic 5.7 - 6.4 % Diabetic >or= 6.5 % Please note range changes. Basophil percentageon 2021 Bilirubin [Mass/Vol] 0.40 mg/dL 0.20-1.00 [facility] Work Phone: Comment on above: For patients on eltr ombopag therapy, use of [employer] [place] TBIL is not recommended. Chloride [Moles/Vol] 101 mmol/L 98-107 [facility] Work Phone: Cholesterol [Mass/Vol] 149 mg/dL <200 [facility] Work Phone: Comment on above: <200 mg/dL Desirable 200-240 mg/dL Borderline >240 mg/dL High Risk Glucose [Mass/Vol] 128 mg/dL 74-106 [facility] Work Phone: Comment on above: Fasting Glucose resu lt greater than or equal to 126 mg/dL suggests DIABETES MELLITUS per A.D.A. criteria. Potassium [Moles/Vol] 4.1 mmol/L 3.5-5.1 [facility] Work Phone: Protein [Mass/Vol] 8.0 g/dL 6.4-8.2 [facility] Work Phone: Sodium [Moles/Vol] 135 mmol/L 136-145 [facility] Work Phone: Triglyceride [Mass/Vol] 111 mg/dL <199 [facility] Work Phone: Comment on above: The drugs N-Acetylcy steine and Metamizole may falsely depress this assay.Serum Triglycerides Reference Interval Normal <150 mg/dL Borderline high 150 - 199 mg/dL High 200 - 499 mg/dL Very High > or = 500 mg/dL Laboratory - Chemistry and C hemistry - challengeon 11-30-2021 ALP [Catalytic activity/Vol] 39 U/L 45-117 [facility] Work Phone: ALT [Catalytic activity/Vol] 25 U/L 13-56 [facility] Work Phone: CO2 [Moles/Vol] 25.0 mmol/L 21.0-32.0 [facility] Work Phone: Globulin (S) [Mass/Vol] 3.8 g/dL 2.2-4.2 [facility] Work Phone: Urea nitrogen/Creatinine [Mass ratio] 22.7 mg/mg 10-20 [facility] Work Phone: No Panel Informationon 11-30 Estimated GFR (MDRD) Amer 79 mL/min >60 [facility] Work Phone: Comment on above: GFR Calc Estimated GFR (MDRD) Non-Af Amer 65 mL/min >60 [facility] Work Phone: Comment on above: Non- GFR Calc Urine Microalbumin/Creatinine Ratio 22.8 mg/g CRE <30 [facility] Work Phone: Vitamin D 25-Hydroxy 64.1 ng/mL [facility] Work Phone: Comment on above: Vitamin D 25(OH) Sta tus Range Deficiency <20 ng/mL (50nmol/L) Insufficiency 20 - 30 ng/mL (50 - 75 nmol/L) Sufficiency 30 - 100 ng/mL (75 - 250 nmol/L) Toxicity >100 ng/mL (>250 nmol/L) Serum or plasma albumin charlotte urement (mass/volume)on 11-30-2021 Albumin [Mass/Vol] 4.2 g/dL 3.2-5.0 [facility] Work Phone: Serum or plasma albumin/glob ulin mass ratioon 11-30-2021 Albumin/Globulin [Mass ratio] 1.1 {ratio} 0.9-2.4 [facility] Work Phone: Serum or plasma calcium charlotte urement (mass/volume)on 11-30-2021 Calcium [Mass/Vol] 9.7 mg/dL 8.5-10.1 [facility] Work Phone: Serum or plasma cholesterol in HDL measurement (mass/volume)on 11-30-2021 Cholesterol in HDL [Mass/Vol] 57 mg/dL >40 [facility] Work Phone: Comment on above: The drugs N-Acetylcy steine and Metamizole may falsely depress this assay. Reference Range HDL <40 mg/dL Low HDL Cholesterol HDL >or= 60 mg/dL High HDL Cholesterol Serum or plasma cholesterol in VLDL measurement (mass/volume)on 11-30-2021 Cholesterol in VLDL [Mass/Vol] 22 mg/dL 5-40 [facility] Work Phone: Serum or plasma creatinine m easurement (mass/volume)on 11-30-2021 Creatinine [Mass/Vol] 0.92 mg/dL 0.55-1.02 [facility] Work Phone: Comment on above: The validity of the calculated GFR & GFRAA in patients over 70 years has not been determined. Clinical correlation is essential. Serum or plasma low density lipoprotein (LDL) cholesterol measurement (mass/volume)on 11-30-2021 Cholesterol in LDL [Mass/Vol] 70 mg/dL 0-130 [facility] Work Phone: Serum or plasma urea nitroge n measurement (mass/volume)on 11-30-2021 Urea nitrogen [Mass/Vol] 21 mg/dL 7-18 [facility] Work Phone: Thin prep Papanicolaou smear with manual screeningon 11-30-2021 Thin prep Papanicolaou smear with manual screening 16 U/L 15-37 [facility] Work Phone: Thin prep Papanicolaou smear with manual screening 9 5-15 [facility] Work Phone: Thin prep Papanicolaou smear with manual screening 15.9 mg/L NO RANGE EST. [facility] Work Phone: Urine creatinine measurement (mass/volume)on 11-30-2021 Creatinine (U) [Mass/Vol] 69.60 mg/dL NO RANGE EST. [facility] Work Phone: Whole blood hemoglobin A1c/t otal hemoglobin ratio (mass fraction)on 11-30-2021 HbA1c (Bld) [Mass fraction] 8.1 % 3.8-5.6 [facility] Work Phone: Comment on above: Normal < 5.7 % Predi abetic 5.7 - 6.4 % Diabetic >or= 6.5 % Please note range changes. Absolute lymphocyte counton 08-27-2021 Lymphocytes Auto (Unsp spec) [#/Vol] 2.66 10*3/uL 0.83-4.51 [facility] Work Phone: Basophil percentageon 2021 Basophils/100 WBC (Bld) 0.7 % 0-1 [facility] Work Phone: Bilirubin [Mass/Vol] 0.40 mg/dL 0.20-1.00 [facility] Work Phone: Comment on above: For patients on eltr ombopag therapy, use of [employer] [place] TBIL is not recommended. Chloride [Moles/Vol] 104 mmol/L 98-107 [facility] Work Phone: [phone] Cholesterol [Mass/Vol] 176 mg/dL <200 [facility] Work Phone: Comment on above: <200 mg/dL Desirable 200-240 mg/dL Borderline >240 mg/dL High Risk Eosinophils/100 WBC (Bld) 1.3 % 0-5 [facility] Work Phone: Glucose [Mass/Vol] 139 mg/dL 74-106 [facility] Work Phone: Comment on above: Fasting Glucose resu lt greater than or equal to 126 mg/dL suggests DIABETES MELLITUS per A.D.A. criteria. Neutrophils (Bld) [#/Vol] 5.1 10*3/uL 2.0-7.7 [facility] Work Phone: Neutrophils/100 WBC (Bld) 59.3 % 47-70 [facility] Work Phone: Potassium [Moles/Vol] 4.3 mmol/L 3.5-5.1 [facility] Work Phone: Protein [Mass/Vol] 7.9 g/dL 6.4-8.2 [facility] Work Phone: [phone] Sodium [Moles/Vol] 136 mmol/L 136-145 [facility] Work Phone: Triglyceride [Mass/Vol] 127 mg/dL <199 [facility] Work Phone: Comment on above: The drugs N-Acetylcy steine and Metamizole may falsely depress this assay.Serum Triglycerides Reference Interval Normal <150 mg/dL Borderline high 150 - 199 mg/dL High 200 - 499 mg/dL Very High > or = 500 mg/dL WBC (Bld) [#/Vol] 8.7 10*3/uL 4.4-11.0 [facility] Work Phone: Blood erythrocytes count (nu mber/volume)on 08-27-2021 RBC (Bld) [#/Vol] 4.47 10*6/uL 4.2-5.4 [facility] Work Phone: Blood hemoglobin measurement (mass/volume)on 08-27-2021 Hemoglobin (Bld) [Mass/Vol] 12.3 g/dL 12.0-15.0 [facility] Work Phone: Blood lymphocytes/100 leukoc yteson 08-27-2021 Lymphocytes/100 WBC (Bld) 30.7 % 19-41 [facility] Work Phone: Blood monocytes/100 leukocyt eson 08-27-2021 Monocytes/100 WBC (Bld) 7.4 % 0-10 [facility] Work Phone: Blood platelet mean volumeon 08-27-2021 Platelet mean volume (Bld) [Entitic vol] 10.9 fL 6.2-12.0 [facility] Work Phone: [phone] Determination of erythrocyte mean corpuscular volume (MCV)on 08-27-2021 MCV (RBC) [Entitic vol] 85.7 fL 81-99 [facility] Work Phone: Hematocrit Auto (Bld) [Volum e fraction]on 08-27-2021 Hematocrit (Bld) [Volume fraction] 38.3 % 37-47 [facility] Work Phone: [phone] Laboratory - Chemistry and C hemistry - challengeon 08-27-2021 ALP [Catalytic activity/Vol] 39 U/L 45-117 [facility] Work Phone: ALT [Catalytic activity/Vol] 26 U/L 13-56 [facility] Work Phone: CO2 [Moles/Vol] 27.0 mmol/L 21.0-32.0 [facility] Work Phone: Globulin (S) [Mass/Vol] 3.8 g/dL 2.2-4.2 [facility] Work Phone: Urea nitrogen/Creatinine [Mass ratio] 21.1 mg/mg 10-20 [facility] Work Phone: Laboratory - Hematology and Cell countson 08-27-2021 Erythrocyte distribution width (RBC) [Entitic vol] 43.3 fL 35.1-43.9 [facility] Work Phone: Erythrocyte distribution width (RBC) [Ratio] 13.8 % 11.6-14.6 [facility] Work Phone: Immature granulocytes/100 WBC (Bld) 0.600 % 0.0-0.9 [facility] Work Phone: Comment on above: IG% - Immature Granu locytes (promyelocytes, myelocytes and metamyelocytes) > 1% indicates that a LEFT SHIFT is Present. MCH (RBC) [Entitic mass] 27.5 pg 27.0-32.0 [facility] Work Phone: Nucleated RBC/100 WBC (Bld) [Ratio] 0 % 0-5 [facility] Work Phone: MCHC Auto (RBC) [Mass/Vol]on 08-27-2021 MCHC (RBC) [Mass/Vol] 32.1 g/dL 32-36 [facility] Work Phone: No Panel Informationon 08-27 Estimated GFR (MDRD) Amer 77 mL/min >60 [facility] Work Phone: Comment on above: GFR Calc Estimated GFR (MDRD) Non-Af Amer 63 mL/min >60 [facility] Work Phone: Comment on above: Non- GFR Calc Urine Microalbumin/Creatinine Ratio 21.4 mg/g CRE <30 [facility] Work Phone: Vitamin D 25-Hydroxy 65.8 ng/mL [facility] Work Phone: Comment on above: Vitamin D 25(OH) Sta tus Range Deficiency <20 ng/mL (50nmol/L) Insufficiency 20 - 30 ng/mL (50 - 75 nmol/L) Sufficiency 30 - 100 ng/mL (75 - 250 nmol/L) Toxicity >100 ng/mL (>250 nmol/L) Platelets bldon 08-27-2021 Platelets (Bld) [#/Vol] 344 10*3/uL 150-450 [facility] Work Phone: Serum or plasma albumin char[place] urement (mass/volume)on 08-27-2021 Albumin [Mass/Vol] 4.1 g/dL 3.2-5.0 [facility] Work Phone: Serum or plasma albumin/glob ulin mass ratioon 08-27-2021 Albumin/Globulin [Mass ratio] 1.1 {ratio} 0.9-2.4 [facility] Work Phone: Serum or plasma calcium charlotte urement (mass/volume)on 08-27-2021 Calcium [Mass/Vol] 9.1 mg/dL 8.5-10.1 [facility] Work Phone: Serum or plasma cholesterol in HDL measurement (mass/volume)on 08-27-2021 Cholesterol in HDL [Mass/Vol] 63 mg/dL >40 [facility] Work Phone: Comment on above: The drugs N-Acetylcy steine and Metamizole may falsely depress this assay. Reference Range HDL <40 mg/dL Low HDL Cholesterol HDL >or= 60 mg/dL High HDL Cholesterol Serum or plasma cholesterol in VLDL measurement (mass/volume)on 08-27-2021 Cholesterol in VLDL [Mass/Vol] 25 mg/dL 5-40 [facility] Work Phone: Serum or plasma creatinine m easurement (mass/volume)on 08-27-2021 Creatinine [Mass/Vol] 0.95 mg/dL 0.55-1.02 [facility] Work Phone: Comment on above: The validity of the calculated GFR & GFRAA in patients over 70 years has not been determined. Clinical correlation is essential. Serum or plasma low density lipoprotein (LDL) cholesterol measurement (mass/volume)on 08-27-2021 Cholesterol in LDL [Mass/Vol] 88 mg/dL 0-130 [facility] Work Phone: Serum or plasma urea nitroge n measurement (mass/volume)on 08-27-2021 Urea nitrogen [Mass/Vol] 20 mg/dL 7-18 [facility] Work Phone: Thin prep Papanicolaou smear with manual screeningon 08-27-2021 Thin prep Papanicolaou smear with manual screening 16 U/L 15-37 [facility] Work Phone: Thin prep Papanicolaou smear with manual screening 5 5-15 [facility] Work Phone: Thin prep Papanicolaou smear with manual screening 11.7 mg/L NO RANGE EST. [facility] Work Phone: Urine creatinine measurement (mass/volume)on 08-27-2021 Creatinine (U) [Mass/Vol] 54.80 mg/dL NO RANGE EST. [facility] Work Phone: Whole blood hemoglobin A1c/t otal hemoglobin ratio (mass fraction)on 08-27-2021 HbA1c (Bld) [Mass fraction] 7.4 % 3.8-5.6 [facility] Work Phone: Comment on above: Normal < 5.7 % Predi abetic 5.7 - 6.4 % Diabetic >or= 6.5 % Please note range changes. Vital Signs Date Time Vital Sign Value Performing Clinician Facility 10-28-2024 09:05-0400 Body height 160.[address] Scott Steele MD Work Phone: [facility] 10-28-2024 09:04-0400 Body mass index (BMI) [Ratio] 31.1 kg/m2 Dr. Scott Steele MD Work Phone: [facility] 10-28-2024 09:04-0400 Body temperature 98.7 [degF] Dr. Scott Steele MD Work Phone: [facility] 10-28-2024 09:04-0400 Body weight 79.[address] Scott Steele MD Work Phone: [facility] 10-28-2024 09:04-0400 Diastolic blood pressure 74 mm[Hg] Dr. Scott Steele MD Work Phone: [facility] 10-28-2024 09:04-0400 Heart rate 73 /min Dr. Scott Steele MD Work Phone: [facility] 10-28-2024 09:04-0400 Respiratory rate 18 /min Dr. Scott Steele MD Work Phone: [facility] 10-28-2024 09:04-0400 SaO2% (BldA) [Mass fraction] 98 % Dr. Scott Steele MD Work Phone: [facility] 10-28-2024 09:04-0400 Systolic blood pressure 135 mm[Hg] Dr. Scott Steele MD Work Phone: [facility] 09-04-2024 11:50-0400 Body temperature 99.6 [degF] Dr. Scott Steele MD Work Phone: [facility] 09-04-2024 11:50-0400 Diastolic blood pressure 61 mm[Hg] Dr. Scott Steele MD Work Phone: [facility] 09-04-2024 11:50-0400 Heart rate 60 /min Dr. Scott Steele MD Work Phone: [facility] 09-04-2024 11:50-0400 Respiratory rate 16 /min Dr. Scott Steele MD Work Phone: [facility] 09-04-2024 11:50-0400 SaO2% (BldA) [Mass fraction] 97 % Dr. Scott Steele MD Work Phone: [facility] 09-04-2024 11:50-0400 Systolic blood pressure 132 mm[Hg] Dr. Scott Steele MD Work Phone: [facility] 09-04-2024 09:30-0400 Body height 160.[address] Scott Steele MD Work Phone: [facility] 09-04-2024 09:30-0400 Body mass index (BMI) [Ratio] 29.2 kg/m2 Dr. Scott Steele MD Work Phone: [facility] 09-04-2024 09:30-0400 Body weight [address] Scott Steele MD Work Phone: [facility] 04-05-2024 10:06-0500 Body height 157.5 cm Juan Ramon Purcell MD Work Phone: [facility] 04-05-2024 10:06-0500 Body mass index (BMI) [Ratio] 27.98 kg/m2 Juan Ramon Purcell MD Work Phone: [facility] 04-05-2024 10:06-0500 Body temperature 97.39 [degF] Juan Ramon Purcell MD Work Phone: [facility] 04-05-2024 10:06-0500 Body weight 69.4 kg Juan Ramon Purcell MD Work Phone: [facility] 04-05-2024 10:06-0500 Diastolic blood pressure 86 mm[Hg] Juan Ramon Purcell MD Work Phone: [facility] 04-05-2024 10:06-0500 Heart rate 82 /min Juan Ramon Purcell MD Work Phone: [facility] 04-05-2024 10:06-0500 SaO2% (BldA) [Mass fraction] 99 % Juan Ramon Purcell MD Work Phone: [facility] 04-05-2024 10:06-0500 Systolic blood pressure 133 mm[Hg] Juan Ramon Purcell MD Work Phone: [facility] Encounters Encounter Date Encounter Type Care Provider Facility Start: 11-20-2024 ambulatory Scott Dela Cruz y:[facility] Start: 11-12-2024 End: 11-12-[address] Scott Steele MD Work Phone: -Radiology [facility] Start: 11-12-2024 End: 11-12-[address] Kong Vieira MD -Radiology [facility] Work Phone: Start: 11-12-2024 End: 11-12-2024 ambulatory Scott Steele Facility:[facility] Start: 11-06-2024 End: 11-06-[address] Scott Steele MD Work Phone: [facility] Work Phone: Start: 11-06-2024 End: 11-06-[address] Kong Vieira MD -Laboratory Specimen Work Phone: Start: 11-06-2024 End: 11-06-2024 ambulatory Scott Steele Facility:[facility] Start: 10-28-[address] Kong Vieira MD -[facility] Start: 10-28-2024 ambulatory Scott Steele Facilit y:[facility] Start: 10-28-2024 End: 10-28-[address] Kong Vieira MD -[facility] Work Phone: Start: 10-28-2024 End: 10-28-[address] Scott Steele MD Work Phone: [facility] Work Phone: Start: 10-25-2024 End: 10-25-[address] Scott Steele MD Work Phone: [facility] Work Phone: Start: 10-25-2024 End: 10-25-[address] Scott Steele MD -Radiology [place] Work Phone: Start: 10-25-2024 End: 10-25-2024 ambulatory Scott Steele Facility:[facility] Start: 10-17-2024 [facility] Start: 10-17-2024 ambulatory Scott Steele Facilit y:[facility] Start: 10-09-2024 End: 10-09-[address] Scott Steele MD Work Phone: [facility] Work Phone: Start: 10-09-2024 End: 10-09-[address] Scott Steele MD -Laboratory [facility] Start: 10-09-2024 End: 10-09-2024 ambulatory Scott Steele Facility:[facility] Start: 10-04-2024 End: 10-04-2024 ambulatory JUAN RAMON PURCELL Facility:[facility] Start: 09-04-2024 ambulatory Scott Steele Facilit y:[facility] Start: 09-04-2024 Non-patient / Non-visit Karri Banegas DO -[facility] Start: 09-04-2024 End: 09-04-2024 Admission to same day surgery center Karri Banegas DO Endoscopy Work Phone: Start: 09-04-2024 End: 09-04-[address] Scott Steele MD Work Phone: [facility] Work Phone: Start: 06-28-2024 End: 06-28-2024 Patient encounter procedure Karri Banegas DO [facility] Work Phone: Start: 06-28-2024 End: 06-28-2024 ambulatory Scott Steele Facility:[facility] Start: 05-07-2024 End: 05-08-2024 ambulatory Juan Ramon Purcell MD Work Phone: Hematology/Oncology Comment on above: Blood tests Start: 04-30-2024 End: 04-30-2024 ambulatory Scott Steele Facility:[facility] Start: 04-05-2024 End: 04-05-2024 ambulatory Juan Ramon Purcell MD Work Phone: Hematology/Oncology Comment on above: Monoclonal gammopath y (Primary Dx) Start: 04-05-2024 End: 04-05-2024 Patient encounter procedure Juan Ramon Purcell MD Work Phone: Hematology/Oncology Start: 03-12-2024 End: 03-12-2024 ambulatory Kiara AUGUSTIN Facility:[facility] Start: 12-13-2023 End: 12-13-2023 ambulatory Scott Steele Facility:[facility] Start: 08-23-2023 End: 08-23-2023 ambulatory [facility] Work Phone: Start: 08-23-2023 End: 08-23-2023 Patient encounter procedure [facility] Start: 06-13-2023 End: 06-13-2023 ambulatory [facility] Work Phone: Start: 06-13-2023 End: 06-13-2023 Patient encounter procedure [facility]-Outpatient Breast Imaging Work Phone: Start: 04-21-2023 End: 04-21-2023 ambulatory [facility] Work Phone: Start: 04-21-2023 End: 04-21-2023 Patient encounter procedure [facility] Start: 03-21-2023 End: 03-21-2023 Patient encounter procedure [facility] Start: 12-16-2022 End: 12-16-2022 ambulatory [facility] Work Phone: Start: 12-16-2022 End: 12-16-2022 Patient encounter procedure [facility] Start: 09-21-2022 End: 09-21-2022 ambulatory [facility] Work Phone: Start: 09-21-2022 End: 09-21-2022 Patient encounter procedure [facility] Start: 09-15-2022 End: 09-15-2022 ambulatory [facility] Work Phone: Start: 09-15-2022 End: 09-15-2022 Patient encounter procedure [facility] Start: 07-28-2022 End: 07-28-2022 ambulatory [facility] Work Phone: Start: 07-28-2022 End: 07-28-2022 Patient encounter procedure [facility] Start: 06-20-2022 End: 06-20-2022 ambulatory [facility] Work Phone: Start: 06-20-2022 End: 06-20-2022 Patient encounter procedure [facility] Start: 05-17-2022 End: 05-17-2022 ambulatory [facility] Work Phone: Start: 05-17-2022 End: 05-17-2022 Patient encounter procedure [facility] Start: 03-15-2022 End: 03-15-2022 ambulatory [facility] Work Phone: Start: 03-15-2022 End: 03-15-2022 Patient encounter procedure [facility] Start: 03-09-2022 End: 03-09-2022 ambulatory [facility] Work Phone: Start: 03-09-2022 End: 03-09-2022 Patient encounter procedure [facility] Start: 01-19-2022 End: 01-19-2022 ambulatory [facility] Work Phone: Start: 01-19-2022 End: 01-19-2022 Patient encounter procedure [facility] Start: 11-30-2021 End: 11-30-2021 Patient encounter procedure [facility] Start: 09-09-2021 End: 09-09-2021 Patient encounter procedure [facility]-Ultrasound, [facility] Start: 08-27-2021 End: 08-27-2021 Patient encounter procedure [facility] Start: 07-22-2021 End: 07-22-2021 Patient encounter procedure [facility]-Sleep Lab Start: 05-27-2021 End: 05-27-2021 Patient encounter procedure [facility] Start: 07-27-2017 Patient encounter status Juan Ramon Purcell MD Work Phone: [facility] Start: 01-06-2014 End: 06-08-2016 Ophthalmic examination and evaluation Juan Ramon Purcell MD Work Phone: [facility] Procedures Date Procedure Procedure Detail Performing Clinician Start: 11-12-2024 Complete x-ray skele grecia survey Dr. Scott Steele MD Work Phone: Start: 11-06-2024 Measurement of occul t blood [...] Work Phone: Comment on above: Performed at: [address] [id number] Director: Han Das PhD, Phone: [phone] Start: 10-28-2024 Serum inorganic phos phate measurement [...] DTaP,Tdap,Td Vaccine (3 - Td or Tdap) [facility] Start: 10-28-2024 C reactive protein [Mass/volume] in Serum or Plasma [facility] Start: 10-28-2024 CBC W Auto Different ial panel - Blood [facility] Start: 10-28-2024 Cobalamin (Vitamin B 12) [Mass/volume] in Serum or Plasma [facility] Start: 10-28-2024 Comprehensive metabo lic 2000 panel - Serum or Plasma [facility] Start: 10-28-2024 Erythrocyte sediment ation rate [facility] Start: 10-28-2024 Ferritin [Mass/volum e] in Serum or Plasma [facility] Start: 10-28-2024 End: 10-28-2024 Gamma glutamyl transferase measurement [facility] Start: 10-28-2024 Immunoglobulin measurement [facility] Start: 10-28-2024 Iron and Iron bindin g capacity panel - Serum or Plasma [facility] Start: 10-28-2024 End: 10-28-2024 Laboratory test [facility] Start: 10-28-2024 Lactate dehydrogenas e measurement [facility] Start: 10-28-2024 Magnesium measurement [facility] Start: 10-28-2024 Procedure [facility] Start: 10-28-2024 Reticulocyte count [facility] Start: 10-28-2024 End: 10-28-2024 Serum immunofixation [facility] Start: 10-28-2024 Serum inorganic phos phate measurement [facility] Start: 10-28-2024 Urate [Mass/volume] in Serum or Plasma [facility] Start: 10-28-2024 [facility] Start: 09-04-2024 Colonoscopy flx dx w/collj spec when pfrmd DIAGNOSTIC COLONOSCOPY [facility] Start: 09-04-2024 Patient discharge [facility] Start: 04-05-2024 End: 07-05-2024 PROTEIN ELECT RND UR W/INTERP [facility] Comment on above: Expected: 04/05/2024 , Expires: 07/05/2024 Start: 02-25-2024 Screening for malign ant neoplasm of colon [facility] Start: 05-22-2023 Advance Directive Discussion Advance Directive Discussion [facility] Start: 2022 Screening for osteoporosis Bone Density Screening [facility] Start: 08-03-2019 Hepatitis B screening Urine Al bumin:Creatinine Ratio [facility] Start: 05-31-2019 Diabetic foot examination Diabetic F oot Exam [facility] Start: 05-17-2019 Glaucoma screening Dilated Retinal E xam [facility] Start: 02-02-2019 Hemoglobin A1c measurement HbA1C [facility] Start: 01-29-2019 Hepatitis B surface antibody level LDL Cholesterol [facility] Start: 08-22-2018 Screening for malign ant neoplasm of breast Mammogram Screening [facility] Start: 08-21-2018 Screening for malign ant neoplasm of colon Fecal Occult Blood [facility] Start: 2002 Screening for malign ant neoplasm of colon [facility] Start: 1975 Annual PCP Team [employer] Consult[employer] bella Disease Visit Annual PCP Team Chronic Disease Visit [facility] Start: 1975 Anxiety Screening Anxiety Screening [facility] Start: 1975 BP Controlled (<130/80) BP Controlle d (<130/80) [facility] Start: 1975 Depression Screening Depression Scre ening [facility] Alanine aminotransfe rase [Enzymatic activity/volume] in Serum or Plasma [facility] Albumin [Mass/volume ] in Serum or Plasma [facility] Albumin [Moles/volum e] in Serum or Plasma [facility] Albumin/Globulin ratio [facility] Alkaline phosphatase [Enzymatic activity/volume] in Serum or Plasma [facility] Anion gap in Serum o r Plasma [facility] End: 04-05-2025 Basic metabolic 2000 panel - Serum or Plasma BASIC METABOLIC PANEL Lab Routine Monoclonal gammopathy Every 6 months for 2 Occurrences starting 04/05/2024 until 04/05/2025, 1 completed [facility] Comment on above: Every 6 months for 2 Occurrences starting 04/05/2024 until 04/05/2025, 1 completed Bilirubin, total measurement [facility] BUN/Creatinine ratio [facility] Calcium [Mass/volume ] in Serum or Plasma [facility] Carbon dioxide, tota l [Moles/volume] in Central venous blood [facility] End: 04-05-2025 CBC W Auto Differential panel - Blood COMPLETE BLOOD COUNT AND DIFFERENTIAL Lab Routine Monoclonal gammopathy Every 6 months for 2 Occurrences starting 04/05/2024 until 04/05/2025, 1 completed [facility] Work Phone: Comment on above: Every 6 months for 2 Occurrences starting 04/05/2024 until 04/05/2025, 1 completed Creatinine [Mass/vol ume] in Serum or Plasma [facility] CT Abdomen and Pelvi s W contrast IV [facility] CT Neck W contrast IV [facility] Electrophoresis: [id number] [facility] Electrophoresis: jaime ma globulin [facility] Erythrocyte mean corpuscular volume determination [facility] Folate [Moles/volume ] in Serum or Plasma [facility] Gliadin peptide IgA Ab [Units/volume] in Serum [facility] Gliadin peptide IgG Ab [Units/volume] in Serum [facility] Globulin measurement [facility] Glucose [Mass/volume ] in Serum or Plasma [facility] Hematocrit [Volume Fraction] of Blood [facility] Hemoglobin [Mass/vol ume] in Blood [facility] Hepatitis B virus co re Ab [Presence] in Serum [facility] Work Phone: IgA [Mass/volume] in Serum or Plasma [facility] IgG [Mass/volume] in Serum or Plasma [facility] IgM [Mass/volume] in Serum or Plasma [facility] In-vitro immunologic test [facility] Work Phone: Iron [Mass/mass] in Unspecified specimen [facility] Iron saturation [Mas s Fraction] in Serum or Plasma [facility] End: 04-05-2025 KAPPA/LA,FREE,SER KAPPA/LA,FREE,SER Lab Routine Monoclonal gammopathy Every 6 months for 2 Occurrences starting 04/05/2024 until 04/05/2025 [facility] Comment on above: Every 6 months for 2 Occurrences starting 04/05/2024 until 04/05/2025 [place]/lambda light c victor manuel ratio [facility] Laboratory data interpretation [facility] Lambda light chains. free [Mass/volume] in Serum or Plasma [facility] Leukocytes [#/volume ] in Blood [facility] Mean corpuscular hemoglobin concentration determination [facility] Mean corpuscular hemoglobin determination [facility] Measurement of immunoglobulin A in serum specimen [facility] Measurement of occul t blood in stool specimen using immunoassay [facility] Measurement of renal function [facility] End: 04-05-2025 MONOCLONAL PROTEIN, SERUM (BLOOD) MONOCLONAL PROTEIN, SERUM (BLOOD) Lab Routine Monoclonal gammopathy Every 6 months for 2 Occurrences starting 04/05/2024 until 04/05/2025 [facility] Comment on above: Every 6 months for 2 Occurrences starting 04/05/2024 until 04/05/2025 MONOCLONAL PROTEIN, SERUM (BLOOD) MONOCLONAL PROTEIN, SERUM (BLOOD) Lab Routine Monoclonal gammopathy 04/05/2024 10:52 AM EST [facility] Mycobacterium tuberculosis tuberculin stimulated gamma interferon [Presence] in Blood [facility] Work Phone: Neutrophil count [facility] Neutrophil percent differential count [facility] Patient referral [facility] Work Phone: Platelets [#/volume] in Blood [facility] Potassium measurement [facility] Protein electrophore sis panel - Serum or Plasma [facility] End: 04-05-2025 PROTEIN ELECTROPHORESIS SERUM W/INTERP PROTEIN ELECTROPHORESIS SERUM W/INTERP Lab Routine Monoclonal gammopathy Every 6 months for 2 Occurrences starting 04/05/2024 until 04/05/2025 [facility] Comment on above: Every 6 months for 2 Occurrences starting 04/05/2024 until 04/05/2025 PROTEIN ELECTROPHORE SIS SERUM W/INTERP PROTEIN ELECTROPHORESIS SERUM W/INTERP Lab Routine Monoclonal gammopathy 04/05/2024 10:52 AM EST [facility] Red blood cell count [facility] Red cell distributio n width determination [facility] Serum chloride measurement [facility] Sodium measurement [facility] Tissue transglutamin ase IgA Ab [Units/volume] in Serum [facility] Total iron binding capacity measurement [facility] Total protein measurement [facility] Urea nitrogen [Mass/volume] in Serum or Plasma [facility] Urine kappa light ch ain measurement [facility] XR Bones Survey Views [facility] Immunizations Immunization Date Immunization Notes Care Provider Trevor lópez 03-14-2018 influenza, seasonal, injectable Juan Ramon Purcell MD Work Phone: [facility] 01-18-2017 influenza, injectabl e, quadrivalent, preservative free Juan Ramon Purcell MD Work Phone: [facility] 04-19-2016 influenza, injectabl e, quadrivalent, contains preservative Juan Ramon Purcell MD Work Phone: [facility] 07-22-2015 pneumococcal polysaccharide vaccine, 23 valent Juan Ramon Purcell MD Work Phone: [facility] Work Phone: 01-08-2015 tetanus toxoid, redu jose manuel diphtheria toxoid, and acellular pertussis vaccine, adsorbed Juan Ramon Purcell MD Work Phone: [facility] 05-09-2014 influenza, seasonal, injectable Juan Ramon Purcell MD Work Phone: [facility] 05-09-2014 pneumococcal conjuga te vaccine, 13 arletteent Juan Ramon Purcell MD Work Phone: [facility] Payers Date Payer Category Payer Self-pay [id number] 2023 Private Health Insurance [facility] AARP SUPPLEMENT [id number] 2023-Present [phone] [address] [place] [address] Indemnity [id number] 2023 Unknown [id number] 2022 Medicare MEDICARE MEDICAR E A AND B [id number] 2022-Present [phone] [place] [address] Medicare [id number] 2022 Medicare [id number] Unknown [id number] Unknown [id number] Unknown [id number] Unknown [id number] Unknown [id number] Unknown [id number] Unknown [id number] Unknown [id number] Unknown [id number] Unknown [id number] .462 Unknown [id number] .462 Unknown [id number] .462 Unknown [id number] .462 Unknown [id number] Unknown [id number] Social History Date Type Detail Facility Start: 02-20-2019 End: 02-20-2019 Tobacco smoking status [facility] Unknown if ever smoked [facility] Start: 02-05-2019 Non-smoker [facility] Start: 1955 Sex Assigned At Female W [facility] Start: 02-12-2014 End: 08-29-2024 Tobacco smoking status [facility] Never smoked tobacco [facility] Start: 02-12-2014 Tobacco use and exposure Smokeless tobacco non-user [facility] Start: 04-05-2024 Alcoholic beverage intake Current non-drinker of alcohol (finding) [facility] Start: 02-02-2018 End: 04-05-2024 History of Social function [facility] Start: 02-02-2018 End: 04-05-2024 Tobacco use panel [facility] Adult Depression Screening Assessment 0 [facility] Start: 1955 Sex assigned at Not on file [facility] Start: 09-04-2024 Sex Female (finding) [facility] NEGATED: Highlighted row Not [facility] Goals Date Patient Goal Desired Activity /State Mental Status Date Assessment Result Facility 09-04-2024 Cognitive function Voice/Name [facility] Work Phone: Clinical Notes 04-05-2024 to 11-13-2024 Note Date & Type Note Facility 11-13-2024 Radiology Diagnostic study note [facility] Imaging Services [address] [place] [address] Bone Survey Comp(Axial&Append) MR#: [id number] Acct: [id number] Name: MARTHA FABIAN Rep #: [id number] : 1955 From: Romana Bobo MD PCP: Dr. Scott Steele MD Status: RE G CLI Study:Bone Survey Comp(Axial&Append) Date of Exam: 11/12/24 Exam# [id number] Ordering Dr: Temo Vieira MD PROCEDURE: BONE SURVEY COMP(AXIAL APPEND) 11/12/2024 REASON FOR EXAM: MACROGLOBULINEMIA F, age 69 y/o . TECHNIQUE: BONE SURVEY COMP(AXIAL APPEND) COMPARISON: Radiographs on 10/25/2024. FINDINGS: No fracture or dislocation is seen. No lytic or blastic bone lesion is noted. No periosteal reaction is identified. Unremarkable lungs. Degenerative joint disease of the hips, more prominent on the right side. 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 RAD/Bone Survey Comp(Axial&Append) IMPRESSION: No suspicious bone lesion is identified. Reading Location: [place] [address] CC: Dr. Scott Steele MD; Dr. Kong Vieira MD ~ Auto Mechanic Supervisor: Signed [facility] 10-25-2024 Radiology Diagnostic study note [facility] Imaging Services [address] [place], [place] [id number] Hips B/L min 2 views w/ Pelvis MR#: [id number] Acct: [id number] Name: MARTHA FABIAN Rep #: [id number] : 1955 F 69 From: Fadia Zarate MD PCP: Dr. Scott Steele MD Status: RE G CLI Study:Hips B/L min 2 views w/ Pelvis Date of Exam: 10/25/24 Exam# [id number] Ordering Dr: Scott Steele MD EXAM: XR [...] with suggestion of avascular necrosis. Reading Location: [facility] CC: Dr. Scott Steele MD ~ Auto Mechanic Supervisor: Signed [facility] 10-25-2024 Radiology Diagnostic study note [facility] Imaging Services [address] [place] [address] Lumbar Spine 2 or 3 Views MR#: [id number] Acct: [id number] Name: MARTHA FABIAN Rep #: [id number] : 1955 69 From: Fadia Zarate MD PCP: Dr. Scott Steele MD Status: RE G CLI Study:Lumbar Spine 2 or 3 Views Date of Exam: 10/25/24 Exam# [id number] Ordering Dr: Scott Steele MD EXAM: XR [...] IMPRESSION: Degenerative changes as above. Reading Location: [facility] CC: Dr. Scott Steele MD ~ Auto Mechanic Supervisor: Signed [facility] 09-04-2024 Consult note [facility] 09-04-2024 Consult note Note Date/Time September 04, 2024 9:19am [facility] Medical Records Department [address] [place] [address] Pre-Anesthesia Evaluation 09/04/24917 MR#: [id number] Acct: [id number] Name: MARTHA FABIAN Rep #:[id number] : 1955 69 From: Dennis Chandler MD PCP: Dr. Scott Steele MD Status:RE G [facility] Y Race: C Location: [place] [address] ASA Classification* ASA Classification ASA Classification: 2 [...] Procedure(s): COLONOSCOPY Anesthesia History Anesthesia History - senior data developer: Anesthesia History - senior data developer Hx Hospitalization No 08/29/24 14:31 Any Problems [...] take am of surgery PONV PONV - senior data developer: PONV - senior data developer Female Yes 08/29/24 14:31 HX of Motion Sickness No 08/29/24 14:31 HX of N/V After Surgery Yes 08/29/24 14:31 Non-Smoker Yes 08/29/24 14:31 Duration of Surgery greater No 08/29/24 14:31 than 60 minutes Number of Risk Factors 3 08/29/24 14:31 PONV Score Moderate Risk 08/29/24 14:31 Respiratory Assessment Respiratory Assessment - senior data developer: Respiratory Tract Infection Hx - senior data developer Hx Respiratory Tract Infection No 08/29/24 14:31 STOP Sleep Apnea STOP Sleep Apnea - senior data developer: STOP Sleep Apnea - senior data developer Hx Hypertension Yes 08/29/24 14:31 Hx Sleep [...] Tobacco Use History Tobacco Use History - senior data developer: Tobacco Use History - senior data developer Tobacco Use Smoking Status Never smoker 08/29/24 14:31 Hx Tobacco Use No 08/29/24 14:31 Years Smoking Packs Smoked per Day Smoking Cessation Date was within the last 15 years Hx Smoking Cessation Date Hx Smoking Cessation Counseling Hematologic Medial History Hematologic Hx - senior data developer: Hematologic 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 Specify any problems FACE SWELLED WITH 2ND UNIT ( 08/29/24 14:31 40+ YRS AGO) Hx of Preganancy in last 3 No 08/29/24 14:31 Months Nurse Filling Out Transfusion [facility] 08/29/24 14:31 & Questions: Date: 08/29/24 08/29/24 14:31 Time: 14:40 08/29/24 14:31 Patient unable to answer at this time (ie. confused, unrespo /Reproduction History /Reproductive History - senior data developer: /Reproductive Hx- senior data developer Hx Now No 08/29/24 14:31 Gestational Age (in weeks): EDC: Hx Hx Para [facility] History Wears dentures Wears glasses Cancer [...] no additional complaints, except as documented. 09/04/24918 <Electronically signed by Dennis Chandler MD > Date _ Dennis Chandler MD Cosigner Signature: Date CC: ~ Signed [facility] Work Phone: 1(510) 543-899104-16-2025 Evaluation note* Diagnosis Onset Date Resolution Status Admit Date Encounter for screening colonoscopy acute September 04, 2024 9:16am Macroglobulinemia acute October 8:11am Iron deficiency chronic October 28, 2024 8:11am [facility] Work Phone: 1(926) 270-869404-16-2025 Evaluation note* Diagnosis Onset Date Resolution Status Admit Date Encounter for screening colonoscopy acute September 04, 2024 9:16am Iron deficiency chronic October 28, 2024 8:11am Macroglobulinemia chronic October 8:11am [facility] Work Phone: 1(219) 990-438904-16-2025 Consult note [facility] Medical Records Department [address] [place] [address] Anesthesia Postop Eval I 09/04/24 1112 MR#: [id number] Acct: [id number] Name: MARTHA FABIAN Rep #:[id number] : 1955 69 From: Tab Interiano PCP: Dr. Scott Steele MD Status: G [facility] Y Race: C Location: [place] [address] Anesthesia: Postop Eval I Current Vital Signs [...] Yes 09/04/24 1114 > Date _ Tab Cooleyignaleyda Signature: Date CC: ~ Signed [facility]04-16-2025 Procedure note [facility] Medical Records Department [address] [place] [address] Operative Report - CC Letter MR#: [id number] Acct: [id number] Name: MARTHA FABIAN Rep #:[id number] : 1955 69 From: Karri Banegas DO PCP: Dr. cSott Steele MD Status:RE G [facility] 09/04/2024 Scott Steele [address] [place] [address] Re : Colonoscopy procedure for Martha Fabian [...] ~ Date Dictated: 09/04/24 1046 Date Transcribed: Auto Mechanic Supervisor: RF Signed [facility]04-16-2025 Procedure note [facility] Medical Records Department [address] [place] [address] Colonoscopy Report MR#: [id number] Acct: [id number] Name: MARTHA FABIAN Rep #:[id number] : 1955 69 From: Karri Banegas DO PCP: Dr. Scott Steele MD Status:[facility] Patient Name: Martha Fabian Procedure Date: 09/04/2024 [...] was poor. Procedure Code(s): --- Professional --- 35593, 53, Colonoscopy, flexible; diagnostic, including collection of specimen(s) by brushing or washing, when performed (separate procedure) CPT copyright 2021 [employer] [employer]. All rights reserved. The codes documented in this report are preliminary and upon structures assembler review may be revised to meet current compliance requirements. Karri Banegas DO 09/04/2024 11:08:30 AM This report has been signed electronically. Number of Addenda: 0 Note Initiated On: 09/04/2024 10:46 AM 09/04/24 1108 Date _ Karri Banegas DO Cosigner Signature: Date (if indicated) CC: Dr. Scott Steele MD; Karri Banegas DO ~ Date Dictated: 09/04/24 1046 Date Transcribed: Auto Mechanic Supervisor: RF Signed [facility]04-16-2025 History and physical note [facility] Medical Records Department [address] [place] [address] History & Physical Exam 04/16/25 1043 MR#: [id number] Acct: [id number] Name: MARTHA FABIAN Rep #:[id number] : 1955 69 From: Karri Banegas DO PCP: Dr. Scott Steele MD Status:RE G [facility] Location: [place] [address] HPI - General General Date of Admission: [...] will have an ASA of 3. Coding [facility] Medical History Wears dentures Wears glasses Cancer [...] Scott Steele MD; Karri Banegas DO~ Signed [facility]04-16-2025 [facility] Medical Records Department [address] [place] [address] History Physical Exam 09/04/24 1043 MR#: [id number] Acct: [id number] Name: MARTHA FABIAN Rep #: [id number] : 1955 69 From: Karri Banegas DO PCP: Dr. Scott tSeele MD Status:REG [facility] Location: [place] [address] HPI - General General Date of Admission: [...] will have an ASA of 3. Coding [facility] Medical History Wears dentures Wears glasses Cancer [...] Plan: She will undergo (more content not included)...[facility] 09-04-2024 Consult note [facility] Medical Records Department [address] [place] [address] Pre-Anesthesia Evaluation 09/04/24917 MR#: [id number] Acct: [id number] Name: MARTHA FABIAN Rep #:[id number] : 1955 69 From: Dennis Chandler MD PCP: Dr. Scott Steele MD Status:[facility] Y Race: C Location: [place] [address] ASA Classification* ASA Classification ASA Classification: 2 [...] Procedure(s): COLONOSCOPY Anesthesia History Anesthesia History - senior data developer: Anesthesia History - senior data developer Hx Hospitalization No 08/29/24 14:31 Any Problems [...] take am of surgery PONV PONV - senior data developer: PONV - senior data developer Female Yes 08/29/24 14:31 HX of Motion Sickness No 08/29/24 14:31 HX of N/V After Surgery Yes 08/29/24 14:31 Non-Smoker Yes 08/29/24 14:31 Duration of Surgery greater No 08/29/24 14:31 than 60 minutes Number of Risk Factors 3 08/29/24 14:31 PONV Score Moderate Risk 08/29/24 14:31 Respiratory Assessment Respiratory Assessment - senior data developer: Respiratory Tract Infection Hx - senior data developer Hx Respiratory Tract Infection No 08/29/24 14:31 STOP Sleep Apnea STOP Sleep Apnea - senior data developer: STOP Sleep Apnea - senior data developer Hx Hypertension Yes 08/29/24 14:31 Hx Sleep [...] Tobacco Use History Tobacco Use History - senior data developer: Tobacco Use History - senior data developer Tobacco Use Smoking Status Never smoker 08/29/24 14:31 Hx Tobacco Use No 08/29/24 14:31 Years Smoking Packs Smoked per Day Smoking Cessation Date was within the last 15 years Hx Smoking Cessation Date Hx Smoking Cessation Counseling Hematologic Medial History Hematologic Hx - senior data developer: Hematologic 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 Specify any problems FACE SWELLED WITH 2ND UNIT ( 08/29/24 14:31 40+ YRS AGO) Hx of Preganancy in last 3 No 08/29/24 14:31 Months Nurse Filling Out Transfusion [facility] 08/29/24 14:31 & Questions: Date: 08/29/24 08/29/24 14:31 Time: 14:40 08/29/24 14:31 Patient unable to answer at this time (ie. confused, unrespo /Reproduction History /Reproductive History - senior data developer: /Reproductive Hx- senior data developer Hx Now No 08/29/24 14:31 Gestational Age [...] 09/04/24918 > Date _ Dennis Chandler MD Cosigner Signature: Date CC: ~ Signed [facility]02-08-2025 Consult note Author Tab Interiano [facility] Note Date/Time September 04, 2024 11: 14am [facility] Medical Records Department [address] [place] [address] Anesthesia Postop Eval I 09/04/24 1112 MR#: [id number] Acct: [id number] Name: MARTHA FABIAN Rep #:[id number] : 1955 69 From: Tab Interiano PCP: Dr. Scott Steele MD Status:RE G [facility] Y Race: C Location: [place] [address] Anesthesia: Postop Eval I Current Vital Signs [...] Postop Eval 1 completed: Yes 09/04/24 1114 <Electronically signed by Tab Interiano > Date _ Tab Interiano Cosigner Signature: Date CC: ~ Signed [facility] Work Phone: 1(792) 840-404302-07-2025 Evaluation note* Diagnosis Onset Date Resolution Status Admit Date Encounter for screening colonoscopy acute June 28 9:51am Encounter for screening colonoscopy acute September 04, 2024 9:16am [facility] Work Phone: 1(865) 666-841112-17-2024 Telephone encounter Note* Telephone Encounter - Roxi Gutierrez RN - 05/07/2024 3:[address] Purcell, labs in 6mo. Lucero Gutierrez RN [facility] Work Phone: 1(490) 152-859412-17-2024 Miscellaneous Notes* Telephone Encounter - Roxi Gutierrez RN - 05/07/2024 3:[address] Purcell, labs in 6mo. Lucero Gutierrez RN documented [facility]24 NoteHNO ID: [id number] Author: JUAN RAMON PURCELL MD Service: ? [...] which included preparing to see the patient, [id number] patient care, completing clinical documentation, obtaining and/or reviewing separately obtained history, performing a medically appropriate examination, counseling and educating the patient/family/caregiver, ordering medications, tests, or procedures, independently interpreting results (not separately reported), and communicating results to the patient/family/caregiver. Electronically Signed: Juan Ramon Prucell MD April 05, 2024 10:20 [facility]11-15-2024 History of Present illness Narrative* Juan [...] which included preparing to see the patient, [id number] patient care, completing clinical documentation, obtaining and/or reviewing separately obtained history, performing a medically appropriate examination, counseling and educating the pat ient/family/caregiver, ordering medications, tests, or procedures, independently interpreting results (not separately reported), and communicating results to the patient/family/caregiver. Electronically Signed: Juan Ramon Purcell MD April 05, 2024 10:20 AM [facility] Author Dennis Chandler [facility] Note Date/Time September 04, 2024 12: 16pm [facility] Medical Records Department [address] [place] [address] Anesthesia Postop Eval II 09/04/24 1126 MR#: [id number] Acct: [id number] Name: MARTHA FABIAN Rep #:[id number] : 1955 69 From: Dennis Chandler MD PCP: Dr. Scott Steele MD Status:RE G [facility] Y Race: C Location: [place] [address]- Anesthesia Postop Eval I Sum Postop Eval [...] Pain Level: 0 nausea: No Vomiting: No 09/04/241125 <Electronically signed by Dennis Chandler MD > Date _ Dennis Chandler MD Cosigner Signature: Date CC: ~ Signed [facility] Work Phone: Evaluation noteNo assessment information available [facility] Work Phone: Evaluation note* Diagnosis Monoclonal gammopathy- Primary Monoclonal paraproteinemia documented in this encounter [facility] Author Karri Banegas [facility] Note Date/Time September 04, 2024 10: 45am [facility] Medical Records Department [address] [place] [address] History & Physical Exam 09/04/24 1043 MR#: [id number] Acct: [id number] Name: MARTHA FABIAN Rep #:[id number] : 1955 69 From: Karri Banegas DO PCP: Dr. Scott Steele MD Status:[facility] Location: [place] [address] HPI - General General Date of Admission: [...] will have an ASA of 3. Coding [facility] Medical History Wears dentures Wears glasses Cancer [...] Scott Steele MD; Karri Banegas DO~ Signed [facility] Work Phone: Reason for referral (narrative)No reason for referral information availableWSelect [facility] Work Phone: Chief Complaint and Reason for [...] Visit Admit Date Encounter for screening colonoscopy [facility] 2024 9:51am Encounter for screening colonoscopy [facility] 2024 9:16am Chief Complaint Admit Date Amb Documentation [...] m Macroglobulinemia October 28, 2024 8:11a m Chief Complaint Admit Date Amb Documentation October 17, 2024 10:25 am EORDER BILATERAL HIPS/ LUMBAR October 25, 2024 8:56am MGUS October 28, 2024 8:11a m MED ONC October 28, 2024 10:31 am E ORDER November 06, 2024 8:20 am MACROGLOBNEMA November 12, 2024 9:20 am Family History No Family History Records Found Relationship Condition Age at Onset Recorded Date/T raciel mother Malignant neoplasm Unknown Hypertension Unknown Hypercholesterolemia Unknown Cerebrovascular accident (CVA) Unknown father Cardiac disease Unknown Kidney disorder Unknown Advance Directives No Advanced Directives Records Found Advance Directive Response Recorded Date/ Time Living Will Yes February 05, 2019 10:48am Power of Felter Tennis Balls Yes January 10:48am Advance Directive Response Recorded Date/ Time Living Will Yes February 05, 2019 9:48am Power of [employer] [employer] [place]alls Yes January 9:48am Advance Directive Response Recorded Date/ Time Living Will Yes August 29, 2024 2:31pm Do you have a Healthcare Power of Felter Tennis [employer]alls? Yes August 29, 2024 2:31pm Name of Medical Power of Felter Tennis [place]alls [place] August 29, 2024 2:31pm Summary Purpose [...] Care Provider Active Kiara AUGUSTIN PA Attending Provider, Referring Pr ovider Active Team Status: Inactive Member Role Status Dates Dr. Scott Steele MD Primary Care Provider, Attend ing Provider Active Team Status: Inactive Member Role Status Dates Dr. Scott Steele MD Primary Care Provider Active Kiara AUGUSTIN, PA Attending Provider Active Team Status: Inactive Member Role Status Dates Dr. Scott Steele MD Primary Care Provider, Attend ing Provider Active Kiara AUGUSTIN, PA Other Provider Active Casino Porter Relationship Specialty Start Date End Date Scott Steele MD [address] [facility] [address] [place] [address] PCP - General Family Medicine 03/22/24 Casino Porter Relationship Specialty Start Date End Date Scott Steele MD [address] [facility] [address] [place] [address] PCP - General Family Medicine 03/22/24 Juan Ramon Purcell MD [address] [place] [address] Hematology/Oncology 05/07/24 Team Status: Active Member Role [...] November 06, 2024 End: November 06, 2024 Team Status: Active Member Role/Relationship Status Dates Dr. Scott Steele MD Primary Care Provider Active Team Status: Inactive Member Role/Relationship Status Dates Dr. Scott Steele MD Primary Care Provider Active Start: September 04, 2024 End: September 04, 2024 Dr. Scott Steele MD Referring Provider Active Start: September 04, 2024 End: September 04, 2024 Dr. Karri Banegas DO Attending Provider Active Start: September 04, 2024 End: September 04, 2024 Team Status: Active Member Role/Relationship Status Dates Dr. Scott Steele MD Primary Care Provider Active Start: September 04, 2024 Dr. Scott Steele MD Referring Provider Active Start: September 04, 2024 Dr. Karri Banegas DO Attending Provider Active Start: September 04, 2024 Dr. Karri Banegas DO Other Provider Active St art: September 04, 2024 Team Status: Inactive Member Role/Relationship Status Dates Dr. Scott Steele MD Primary Care Provider Active Start: October 09, 2024 End: October 09, 2024 Dr. Scott Steele MD Attending Provider Active Start: October 09, 2024 End: October 09, 2024 Dr. Scott Steele MD Referring Provider Active Start: October 09, 2024 End: October 09, 2024 Team Status: Active Member Role/Relationship Status Dates Dr. Scott Steele MD Primary Care Provider Active Start: October 17, 2024 Anibalbrenda Daphne Attending Provider Active Start: October 17, 2024 Team Status: Inactive Member Role/Relationship Status Dates Dr. Scott Steele MD Primary Care Provider Active Start: October 25, 2024 End: October 25, 2024 Dr. Scott Steele MD Attending Provider Active Start: October 25, 2024 End: October 25, 2024 Dr. Scott Steele MD Referring Provider Active Start: October 25, 2024 End: October 25, 2024 Team Status: Inactive Member Role/Relationship Status Dates Dr. Scott Steele MD Primary Care Provider Active Start: October 28, 2024 End: October 28, 2024 Dr. Scott Steele MD Referring Provider Active Start: October 28, 2024 End: October 28, 2024 Dr. Kong Vieira MD Attending Provider Active S tart: October 28, 2024 End: October 28, 2024 Team Status: Active Member Role/Relationship Status Dates Dr. Scott Steele MD Primary Care Provider Active Start: October 28, 2024 Dr. Kong Vieira MD Attending Provider Active S tart: October 28, 2024 Dr. Kong Vieira MD Referring Provider Active S tart: October 28, 2024 Team Status: Inactive Member Role/Relationship Status Dates Dr. Scott Steele MD Primary Care Provider Active Start: November 06, 2024 End: November 06, 2024 Dr. Kong Vieira MD Attending Provider Active S tart: November 06, 2024 End: November 06, 2024 Dr. Kong Vieira MD Referring Provider Active S tart: November 06, 2024 End: November 06, 2024 Team Status: Inactive Member Role/Relationship Status Dates Dr. Scott Steele MD Primary Care Provider Active Start: November 12, 2024 End: November 12, 2024 Dr. Kong Vieira MD Attending Provider Active S tart: November 12, 2024 End: November 12, 2024 Dr. Kong Vieira MD Referring Provider Active S tart: November 12, 2024 End: November 12, 2024 Source Comments (unrecognize d section and content) In the event this informatio n is protected by the Federal Confidentiality of Alcohol and Drug Abuse Patient Records regulations: The Federal rules restrict any use of the information to criminally investigate or prosecute any alcohol or drug abuse patient.[facility] Center[facility] the event this information is protected by the Federal Confidentiality of Alcohol and Drug Abuse Patient Records regulations: The Federal rules restrict any use of the information to criminally investigate or prosecute any alcohol or drug abuse patient.[facility] Reason for Visit (unrecogniz ed section and content) Reason Comments New Patient Evaluation INFORMATION SOURCE (unrecogn ized section and content) DATE CREATED AUTHOR 10/16/2024 [facility] DATE CREATED AUTHOR AUTHOR'S ORGANIZ ATION 11/19/2024 [facility] FOR RECORDS PERTAINING TO PATIENTS WHO ARE [...] BE BASED ON THE PRIMARY CLINICAL RECORDS. [email or web address] provides no warranty or guarantee of the accuracy or completeness of information in this document.
== END | disposition home or self-care (01) ==
LOC: CT 13:24
PROVIDERS: PCP Family Medicine; Referring Provider Internal Medicine Medical Oncology; Visit Provider Internal Medicine Medical Oncology
DX: C88.00 Waldenstrom 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 (principal)
CPT/HCPCS: 70491; 71260; 74177; Q9967; A4216

== ENCOUNTER → 2024-12-18 | Outpatient (CLI) | payer MEDICARE, OTHER, SELFPAY ==
[2024-12-18 16:09] LABS: Hematocrit 38.9 % (37-47); Hemoglobin 12.6 g/dL (12.0-15.0); Immature Granulocytes Count 0.050 X10^3/uL (0.0-0.0); Mean Corp Hgb Conc 32.4 g/dL (32-36); Mean Corpuscular Volume 90.3 fL (81-99); Mean Platelet Vol. 11.8 fl (6.2-12.0); NRBC Flagged by Analyzer 0 % (0-5); Platelet Count 283 K/mm3 (150-450); RBC Distribution Width CV 14.6 % (11.6-14.6); RBC Distribution Width SD 48.8 fl (35.1-43.9); Red Blood Count 4.31 M/mm3 (4.2-5.4); White Blood Count 11.4 K/mm3 (4.4-11.0)
[2024-12-18 16:30] LABS: AST(SGOT) 22 U/L (<=31); Alanine Aminotransfer ALT/SGPT 22 U/L (<=34); Albumin, Serum 4.5 g/dL (3.4-4.8); Alkaline Phosphatase 42 U/L (35-104); Anion Gap 16 (5-15); BUN 20 mg/dL (4-19); BUN/Creat Ratio 20.7 RATIO (10-20); Calcium,Total 10.3 mg/dL (7.6-11.0); Carbon Dioxide 22.5 mmol/L (21.0-32.0); Chloride 100 mmol/L (98-108); Globulin 3.2 g/dL (2.2-4.2); Glucose 96 mg/dL (70-99); Potassium 4.4 mmol/L (3.3-5.1)
== END | disposition home or self-care (01) ==
LOC: MFPLAB 11:45
PROVIDERS: PCP Family Medicine; Referring Provider Family Medicine; Visit Provider Family Medicine
DX: E11.8 Type 2 diabetes mellitus with unspecified complications (principal)
CPT/HCPCS: 36415; 80053; 83036; 84443; 85025

== ENCOUNTER → 2024-12-20 | Outpatient (CLI) | payer MEDICARE, OTHER, SELFPAY ==
--- NOTE | 2024-12-20 09:30 | CT_ITS ---
PROCEDURE: EXTREMITY LOWER WITHOUT CONTRA 12/20/2024 REASON FOR EXAM: TEMPLATING FOR RIGHT MIKE TECHNIQUE: EXTREMITY LOWER WITHOUT CONTRA Coronal and Sagittal reconstruction series were provided. CONTRAST: None One or more dose reduction techniques were used (e.g., Automated exposure control, adjustment of the mA and/or kV according to patient size, use of iterative reconstruction technique). RADIATION DOSE SUMMARY: CTDlvol: 13.12 mGy DLP: 715.87 mGycm COMPARISON: None FINDINGS: Imaging of the right hip was performed. There is a marked degree of joint space narrowing with subchondral cystic changes of the acetabulum and femoral head. Degenerative spur formation. Possible avascular necrosis. The left hip joint is unremarkable. Imaging of the knee joints was obtained. Mild degree of joint space narrowing involving the medial compartment of the knee joint. CT/Extremity Lower without Contra IMPRESSION: Marked degree of osteoarthritis of the right hip joint with subchondral cystic changes in the right femoral head and right acetabulum with new bone formation. Avascular necrosis should be ruled out. Reading Location: [id number]
== END | disposition home or self-care (01) ==
PROVIDERS: PCP Family Medicine; Referring Provider Orthopaedic Surgery; Visit Provider Orthopaedic Surgery
DX: M16.11 Unilateral primary osteoarthritis, right hip (principal)
CPT/HCPCS: 73700

== ENCOUNTER → 2025-01-06 | Outpatient (CLI) | payer MEDICARE, OTHER, SELFPAY ==
--- OUTSIDE RECORDS SUMMARY | 2025-01-06 07:07 | XMS RPT_ITS | CCD ---
Author Organization [facility] Care Team Providers Care Library Services Assistant Name Role Phone Scott Steele MD Primary Care Provider Juan Ramon Purcell MD Unavailable Dr. Scott Steele MD Primary Care Provider Dr. Scott Steele MD Referring Provider [phone] Dr. Karri Banegas DO Attending Provider Makenzie PÉREZ, Dr. Zeng Other Provider Dr. Scott Steele MD Attending Provider SCOTT [...] Provider Dr. Kong Vieira MD Referring Provider Dr. Kong Murrell DO Attending Provider SCOTT STEELE MD Attending Unavailable SCOTT STEELE MD Primary Care Unavailable Dr. Kong Murrell DO Referring Provider Dr. Kong Vieira MD Referring Provider Theresa Serna Attending Unavailable Scott Steele Primary Care Unavailable Karri Banegas Attending Unavailable Scott Steele Primary Care Unavailable Scott Steele Referring Unavailable SchScott carter Primary Care Unavailable SchScott carter Referring Unavailable PraKong mitchell Attending Unavailable SchScott carter Primary Care Unavailable PraKong mitchell Attending Unavailable PrahKong Referring Unavailable SchScott carter Referring Unavailable SchScott carter Attending Unavailable SchScott carter Primary Care Unavailable SchScott carter Primary Care Unavailable Kiara Yarbrough Unavailable Hamzah Guzman V Referring Unavailable SibHamzah kendall V Attending Unavailable Scott Steele Attending Unavailable SchScott carter Primary Care Unavailable Schinannetta, Scott Crump Referring Unavailable SchScott carter Referring Unavailable SchScott carter Primary Care Unavailable SchScott carter Attending Unavailable Scott Steele Primary Care Unavailable Kong Vieira Referring Unavailable Prah, Kong Attending Unavailable Scott Steele Referring Unavailable Karri Banegas Attending Unavailable Scott Steele Primary Care Unavailable Scott Steele Primary Care Unavailable Kong Murrell Attending Unavailable Kong Murrell Admitting Unavailable Scott Steele Primary Care Unavailable PraKong mitchell Referring Unavailable PrahKong Attending Unavailable Scott Steele Primary Care Unavailable Kong Vieira Attending Unavailable Kong Vieira Referring Unavailable SchScott carter Attending Unavailable Scott Steele Primary Care Unavailable SchScott carter Referring Unavailable SchScott carter Referring Unavailable SchScott carter Attending Unavailable Scott Steele Primary Care Unavailable Scott Steele Primary Care Unavailable Kong Murrell Referring Unavailable Kong Murrell Attending Unavailable Scott Steele Referring Unavailable Karri Banegas Attending Unavailable Karri Banegas Consulting Unavailable Scott Steele Primary Care Unavailable SchScott carter Primary Care Unavailable Scott Steele Referring Unavailable PraKong mitchell Attending Unavailable Scott Steele Primary Care Unavailable Scott Steele Referring Unavailable Kong Murrell Attending Unavailable Allergies Allergy Classification Reported Allergen(s) Allergy Type Date of Onset Reaction(s) Facility (12 sources) empagliflozin; Translations: [EMPAGLIFLOZIN] Drug Allergy 4 Other: See Comments [facility] (1 source) empagliflozin Drug Allergy 5 [facility] Repository Medications Current Medications Medication Drug [...] 12:00am Start: 09-05-2013 take 1 tablet by [facility] once daily at mealtime Aspirin 81 mg [...] Start: 08-30-2016 take 1 capsule by [facility] once daily Cholecalciferol, Vitamin D3, 5,000 unit cap Take 1 capsule by mouth once daily. 0 08/30/2016 Active take 2 tablets by [facility] once daily cholecalciferol (VITAMIN D) 1,000 unit tab tablet Take two tablets by mouth once daily. Active clobetasol propionate 0.0005 mg/mg topical ointment (2 sources) Corticosteroid Start: 02-22-2024 clobetasol (TEMOVATE) 0.05 % ointment Apply 1 application to affected area two times a day as needed. 02/22/2024 Active dapagliflozin 10 mg oral tablet (13 sources) Sodium-Glucose Cotransporter 2 Inhibitor Start: 06-28-2024 take 1 tablet by mouth once daily in the morning Dapagliflozin Propanediol (Farxiga) 10 mg tablet Active 10 mg PO EVERY MORNING June 28, 2024 1:00am take 1 tablet by mouth once christian y FARXIGA 10 mg tablet Take 10 mg by mouth once daily. Active ferrous sulfate 325 mg oral tablet (11 sources) Start: 10-17-2024 take 1 tablet by [...] daily. 90 tablet 1 08/09/2018 Active mecobalamin (9 sources) Start: 10-17-2024 Mecobalamin (V itamin B12) 500 mcg tablet,chewable Active 500 ug PO October 17, 2024 12:00am Start: 10-17-2024 Mecobalamin (V itamin B12) 500 [...] 12:00am Multivitamin With Minerals 1 EACH tablet (11 sources) Start: 02-05-2019 take 1 tablet by [...] 01-22-2019 take 1 capsule by mo [facility] once daily Omeprazole 40 mg capsule,delayed release(DR/EC) Active 40 mg PO DAILY January 22, 2019 12:00am rosuvastatin calcium 20 mg oral tablet (13 sources) HMG-CoA Reductase Inhibitor Start: 06-28-2024 take [...] sources) Anemia; Translations: [Anemia, unspecified] 01-22-2019 Episodic Deficiency and other anemia (1 source) Anemia, unspecified; Translations: [Anemia, unspecified] Onset: 5 Episodic Diabetes mellitus with complications (1 source) [...] gammopathy] Onset: 4 04-05-2024 Chronic Nutritional deficiencies (20 sources) Iron deficiency; Translations: [Iron deficiency] Onset: 5 10-28-2024 Episodic Comment on above: Has created history of chronic iron deficiency, has been taking iron for over 2 years, Iron profile is low but HGB is normal. Osteoarthritis (20 sources) Arthritis; Translations: [Unspecified osteoarthritis, unspecified site] Onset: 5 01-22-2019 Chronic Comment on above: Has been referred to Orthopedic surgeon by PCP Other gastrointestinal disorders (20 sources) Diarrhea; Translations: [Diarrhea, unspecified] 01-22-2019 Episodic Other gastrointestinal disorders (20 sources) Constipation; Translations: [Constipation, unspecified] 01-22-2019 Episodic Other inflammatory condition of skin (2 sources) Psoriasis; Translations: [Psoriasis, unspecified] Onset: 4 12-08-2015 Chronic Other non-traumatic joint disorders (1 source) Pain in right hip; Translations: [Pain in right hip] Onset: 5 Episodic Other nutritional; endocrine; and metabolic disorders (20 sources) Macroglobulinemia; Translations: [Macroglobulinemia] 10-28-2024 Chronic Comment on above: Discussed causes of high IgM level including Lymphoma. Pt wants to continue with work up. Discussed causes of high IgM level including Lymphoma. Pt wants to continue with work up.She does not want to go back to [facility]. High IgM level, no m -protein. Labs reviewed.CT on 11/20/2024 reviewed, showed no lymphadenopathy or cancer, shows osteoarthritis of the R hip. Other screening for suspected conditions (not mental [...] on above: FNA Right thyroid- 0 10/23/18 Spondylosis; intervertebral disc disorders; other back problems (4 sources) Lumbar spondylosis; Translations: [Spondylosis without myelopathy or radiculopathy, lumbar region] 12-04-2024 Chronic Thyroid disorders (20 sources) Multinodular goiter; Translations: [...] Test Name Value Interpretation Reference Range Facility Extremity Lower without Cont raon 12-20-2024 Extremity Lower without Contra [facility] [address] [place] [address] [id number] Extremity Lower without Contra MR#: [id number] Acct: [id number] Name: MARTHA FABIAN Rep #: [id number] : 1955 F 69 From: Guero hoffman MD PCP: Dr. Scott Steele MD Status: REG CLI Study: Extremity Lower without Contra Date of Exam: 0 12/20/24 Exam# [id number] Ordering Dr: Kong Murrell DO PROCEDURE: EXTREMITY LOWER WITHOUT CONTRA 12/20/2024 REASON FOR EXAM: TEMPLATING FOR RIGHT MIKE TECHNIQUE: EXTREMITY LOWER WITHOUT CONTRA Coronal and Sagittal reconstruction series were provided. CONTRAST: None One or more dose reduction techniques were used (e.g., Automated exposure control, adjustment of the mA and/or kV according to patient size, use of iterative reconstruction technique). RADIATION DOSE SUMMARY: CTDlvol: 13.12 mGy DLP: 715.87 mGycm COMPARISON: None FINDINGS: Imaging of the right hip was performed. There is a marked degree of joint space narrowing with subchondral cystic changes of the acetabulum and femoral head. Degenerative spur formation. Possible avascular necrosis. The left hip joint is unremarkable. Imaging of the knee joints was obtained. Mild degree of joint space narrowing involving the medial compartment of the knee joint. CT/Extremity Lower without Contra IMPRESSION: Marked degree of osteoarthritis of the right hip joint with subchondral cystic changes in the right femoral head and right acetabulum with new bone formation. Avascular necrosis should be ruled out. Reading Location: [facility] CC: Dr. Scott Steele MD; Dr. Kong Murrell DO Product Support Engineer: Signed Normal [facility] Absolute lymphocyte countOrd ered By: Scott Steele on 12-18-2024 Lymphocytes Auto (Unsp spec) [#/Vol] 2.53 10*3/uL 0.83-4.51 [facility] Absolute neutrophil countOrd ered By: Scott Steele on 12-18-2024 Neutrophils (Bld) [#/Vol] 7.9 10*3/uL High 2.0-7.7 [facility] Anion gap in Serum or Plasma Ordered By: Scott Steele on 12-18-2024 Anion gap [Moles/Vol] 16 mmol/L High 5-15 [facility] Automated lymphocyte count a s percentage of total leukocytesOrdered By: Scott Steele on 12-18-2024 Lymphocytes/100 WBC Auto (Unsp spec) 22.2 % 19-41 [facility] BUN/creatinine ratioOrdered By: Scott Steele on 12-18-2024 Urea nitrogen/Creatinine [Mass ratio] 20.7 mg/mg High 10-20 [facility] Basophil percentageOrdered B y: Scott Steele on 12-18-2024 Basophils/100 WBC (Bld) 0.4 % 0-1 [facility] Bilirubin, totalOrdered By: Scott Steele on 12-18-2024 Bilirubin [Mass/Vol] 0.32 mg/dL 0.00-1.30 [facility] CBC W/Diff, Automatedon 11-21 0 Absolute Lymph 2.53 X10 3/uL Normal 0.83-4.51 [facility] Comment on above: Order Comment: Order Date: 12/18/24 Order Info: 0184-1 - CBCD Performed By: #### L 500.4050, L100.0100, L501.9520, [id number] #### [facility] [address] [place], [address] Absolute Neut 7.9 X10 3/uL High 2.0-7.7 [facility] Comment on above: Order Comment: Order Date: 12/18/24 Order Info: 0184-1 - CBCD Performed By: #### L 500.4050, L100.0100, L501.9520, [id number] #### [facility] [address] [place], [address] Basophils/100 WBC (Bld) 0.4 % Normal 0-1 [facility] Comment on above: Order Comment: Order Date: 12/18/24 Order Info: 0184-1 - CBCD Performed By: #### L 500.4050, L100.0100, [id number], [id number] #### [facility] [address] [place], [address] Eosinophils/100 WBC (Bld) 0.5 % Normal 0-5 [facility] Comment on above: Order Comment: Order Date: 12/18/24 Order Info: 0184-1 - CBCD Performed By: #### L 500.4050, L100.0100, L501.9520, [id number] #### [facility] [address] [place], [address] Erythrocyte distribution width (RBC) [Ratio] 14.6 % Normal 11.6-14.6 [facility] Comment on above: Order Comment: Order Date: 12/18/24 Order Info: 0184-1 - CBCD Performed By: #### L 500.4050, L100.0100, L501.9520, [id number] #### [facility] [address] [place], [address] Hematocrit (Bld) [Volume fraction] 38.9 % Normal 37-47 [facility] Comment on above: Order Comment: Order Date: 12/18/24 Order Info: 0184-1 - CBCD Performed By: #### L 500.4050, L100.0100, L501.9520, [id number] #### [facility] [address] [place], [address] Hemoglobin (Bld) [Mass/Vol] 12.6 g/dL Normal 12.0-15.0 [facility] Comment on above: Order Comment: Order Date: 12/18/24 Order Info: 0184-1 - CBCD Performed By: #### L 500.4050, L100.0100, L501.9520, [id number] #### [facility] [address] [place], [address] IG% 0.400 Normal 0.0-0.9 [facility] Comment on above: Order Comment: Order Date: 12/18/24 Order Info: 0184-1 - CBCD Result Comment: IG% - Immature Granulocytes (promyelocytes, myelocytes and metamyelocytes) > 1% indicates that a LEFT SHIFT is Present. Performed By: #### L 500.4050, L100.0100, L501.9520, L501.9985 #### [facility] [address] [place], [address] Lymphocytes/100 WBC (Bld) 22.2 % Normal 19-41 [facility] Comment on above: Order Comment: Order Date: 12/18/24 Order Info: 0184-1 - CBCD Performed By: #### L 500.4050, L100.0100, L501.9520, [id number] #### [facility] [address] [place], [address] MCH (RBC) [Entitic mass] 29.2 pg Normal 27.0-32.0 [facility] Comment on above: Order Comment: Order Date: 12/18/24 Order Info: 0184-1 - CBCD Performed By: #### L 500.4050, L100.0100, L501.9520, [id number] #### [facility] [address] [place], [address] MCHC (RBC) [Mass/Vol] 32.4 g/dL Normal 32-36 [facility] Comment on above: Order Comment: Order Date: 12/18/24 Order Info: 018- - CBCD Performed By: #### L 500.4050, L100.0100, L501.9520, [id number] #### [facility] [address] [place], [address] MCV (RBC) [Entitic vol] 90.3 fL Normal 81-99 [facility] Comment on above: Order Comment: Order Date: 12/18/24 Order Info: 018- - CBCD Performed By: #### L 500.4050, L100.0100, L501.9520, [id number] #### [facility] [address] [place], [address] Monocytes/100 WBC (Bld) 7.1 % Normal 0-10 [facility] Comment on above: Order Comment: Order Date: 12/18/24 Order Info: 0184-1 - CBCD Performed By: #### L 500.4050, L100.0100, L501.9520, [id number] #### [facility] [address] [place], [address] Neutrophils/100 WBC (Bld) 69.4 % Normal 47-70 [facility] Comment on above: Order Comment: Order Date: 12/18/24 Order Info: 0184-1 - CBCD Performed By: #### L 500.4050, L100.0100, L501.9520, [id number] #### [facility] [address] [place], [address] Nucleated RBC (Bld) [#/Vol] 0 10*3/uL Normal 0-5 [facility] Comment on above: Order Comment: Order Date: 12/18/24 Order Info: 0184- - CBCD Performed By: #### L 500.4050, L100.0100, L501.9520, [id number] #### [facility] [address] [place], [address] Platelet mean volume (Bld) [Entitic vol] 11.8 fL Normal 6.2-12.0 [facility] Comment on above: Order Comment: Order Date: 12/18/24 Order Info: 0184-1 - CBCD Performed By: #### L 500.4050, L100.0100, L501.9520, [id number] #### [facility] [address] [place], [address] Platelets (Bld) [#/Vol] 283 10*3/uL Normal 150-450 [facility] Comment on above: Order Comment: Order Date: 12/18/24 Order Info: 0184-1 - CBCD Performed By: #### L 500.4050, L100.0100, L501.9520, [id number] #### [facility] [address] [place], [address] RBC (Bld) [#/Vol] 4.31 10*6/uL Normal 4.2-5.4 [facility] Comment on above: Order Comment: Order Date: 12/18/24 Order Info: 0184-1 - CBCD Performed By: #### L 500.4050, L100.0100, L501.9520, L501.9985 #### [facility] [address] [place], [address] RDW SD 48.8 fl High 35.1-43.9 [facility] Comment on above: Order Comment: Order Date: 12/18/24 Order Info: 0184-1 - CBCD Performed By: #### L 500.4050, L100.0100, L501.9520, L501.9985 #### [facility] [address] [place], [address] WBC (Bld) [#/Vol] 11.4 10*3/uL High 4.4-11.0 [facility] Comment on above: Order Comment: Order Date: 12/18/24 Order Info: 0184-1 - CBCD Performed By: #### L 500.4050, L100.0100, L501.9520, L501.9985 #### [facility] [address] [place], [address] Carbon dioxide, total [Moles /volume] in Central venous bloodOrdered By: Scott Steele on 12-18-2024 CO2 [Moles/Vol] 22.5 mmol/L 21.0-32.0 [facility] Chloride assayOrdered By: Kanwal Steele on 12-18-2024 Chloride [Moles/Vol] 100 mmol/L 98-108 [facility] Comprehensive Metabolic Prof ilon 12-18-2024 Albumin [Mass/Vol] 4.5 g/dL Normal 3.4-4.8 [facility] Comment on above: Order Comment: Order Date: 12/18/24 Order Info: 0786-1 - CMP Order Info: 3016-3 - TSH Performed By: #### L 500.4050, L100.0100, L501.9520, L501.9985 #### [facility] [address] [place], [address] Albumin/Globulin [Mass ratio] 1.4 {ratio} Normal 0.9-2.4 [facility] Comment on above: Order Comment: Order Date: 12/18/24 Order Info: 0786-1 - CMP Order Info: 3016-3 - TSH Performed By: #### L 500.4050, L100.0100, L501.9520, L501.9985 #### [facility] [address] [place], [address] ALK PHOS 42 U/L Normal 35-104 [facility] Comment on above: Order Comment: Order Date: 12/18/24 Order Info: 07 - CMP Order Info: 301-3 - TSH Performed By: #### L 500.4050, L100.0100, L501.9520, L501.9985 #### [facility] [address] [place], [address] ALT [Catalytic activity/Vol] 22 U/L Normal <=34 [facility] Comment on above: Order Comment: Order Date: 12/18/24 Order Info: 0786- - CMP Order Info: 3016-3 - TSH Performed By: #### L 500.4050, L100.0100, L501.9520, L501.9985 #### [facility] [address] [place], [address] AST [Catalytic activity/Vol] 22 U/L Normal <=31 [facility] Comment on above: Order Comment: Order Date: 12/18/24 Order Info: 0786-1 - CMP Order Info: 3016-3 - TSH Performed By: #### L 500.4050, L100.0100, L501.9520, L501.9985 #### [facility] [address] [place], [address] Bilirubin [Mass/Vol] 0.32 mg/dL Normal 0.00-1.30 [facility] Comment on above: Order Comment: Order Date: 12/18/24 Order Info: 0786-1 - CMP Order Info: 3015-3 - TSH Performed By: #### L 500.4050, L100.0100, L501.9520, L501.9985 #### [facility] [address] [place], [address] BUN/CRE 20.7 RATIO High 10-20 [facility] Comment on above: Order Comment: Order Date: 12/18/24 Order Info: 0786-1 - CMP Order Info: 3015-3 - TSH Performed By: #### L 500.4050, L100.0100, L501.9520, L501.9985 #### [facility] [address] [place], [address] Calcium [Mass/Vol] 10.3 mg/dL Normal 7.6-11.0 [facility] Comment on above: Order Comment: Order Date: 12/18/24 Order Info: 0786-1 - CMP Order Info: 3 - TSH Performed By: #### L 500.4050, L100.0100, L501.9520, L501.9985 #### [facility] [address] [place], [address] Chloride [Moles/Vol] 100 mmol/L Normal 98-108 [facility] Comment on above: Order Comment: Order Date: 12/18/24 Order Info: 0786-1 - CMP Order Info: 3015-3 - TSH Performed By: #### L 500.4050, L100.0100, L501.9520, L501.9985 #### [facility] [address] [place], [address] CO2 [Moles/Vol] 22.5 mmol/L Normal 21.0-32.0 [facility] Comment on above: Order Comment: Order Date: 12/18/24 Order Info: 0786-1 - CMP Order Info: 3015-3 - TSH Performed By: #### L 500.4050, L100.0100, L501.9520, L501.9985 #### [facility] [address] [place], [address] Creatinine [Mass/Vol] 0.98 mg/dL Normal 0.70-1.20 [facility] Comment on above: Order Comment: Order Date: 12/18/24 Order Info: 0786-1 - CMP Order Info: 3015-07 - TSH Performed By: #### L 500.4050, L100.0100, L501.9520, L501.9985 #### [facility] [address] [place], [address] [place] 16 [facility] 5-15 [facility] Comment on above: Order Comment: Order Date: 12/18/24 Order Info: 0786- - CMP Order Info: 3015-07 - TSH Performed By: #### L 500.4050, L100.0100, L501.9520, L501.9985 #### [facility] [address] [place], [address] GFR/1.73 sq M.predicted among non-blacks MDRD (S/P/Bld) [Vol rate/Area] 63 mL/min/{1.73_m2} Normal >60 [facility] Comment on above: Order Comment: Order Date: 12/18/24 Order Info: 0786 - CMP Order Info: 3015-07 - TSH Result Comment: mL/m in/1.73m2 CKD-EPI Creatinine Equation (2020) Performed By: #### L 500.4050, L100.0100, L501.9520, L501.9985 #### [facility] [address] [place], [address] Globulin (S) [Mass/Vol] 3.2 g/dL Normal 2.2-4.2 [facility] Comment on above: Order Comment: Order Date: 12/18/24 Order Info: 0786- - CMP Order Info: 3015-07 - TSH Performed By: #### L 500.4050, L100.0100, L501.9520, L501.9985 #### [facility] [address] [place], [address] Glucose [Mass/Vol] 96 mg/dL Normal 70-99 [facility] Comment on above: Order Comment: Order Date: 12/18/24 Order Info: 785-05 - CMP Order Info: 3 - TSH Performed By: #### L 500.4050, L100.0100, L501.9520, L501.9985 #### [facility] [address] [place], [address] Potassium [Moles/Vol] 4.4 mmol/L Normal 3.3-5.1 [facility] Comment on above: Order Comment: Order Date: 12/18/24 Order Info: 785-05 - CMP Order Info: 3015-07 - TSH Performed By: #### L 500.4050, L100.0100, L501.9520, L501.9985 #### [facility] [address] [place], [address] Sodium [Moles/Vol] 139 mmol/L Normal 133-145 [facility] Comment on above: Order Comment: Order Date: 12/18/24 Order Info: 785-05 - CMP Order Info: 3015-07 - TSH Performed By: #### L 500.4050, L100.0100, L501.9520, L501.9985 #### [facility] [address] [place], [address] T PROT 7.7 g/dL Normal 5.9-8.4 [facility] Comment on above: Order Comment: Order Date: 12/18/24 Order Info: 785-05 - CMP Order Info: 3015-07 - TSH Performed By: #### L 500.4050, L100.0100, L501.9520, L501.9985 #### [facility] [address] [place], [place], [address] Urea nitrogen [Mass/Vol] 20 mg/dL High 4-19 [facility] Comment on above: Order Comment: Order Date: 12/18/24 Order Info: 0786-1 - CMP Order Info: 3016-3 - TSH Performed By: #### L 500.405, L100.0100, L501.3024, L501.9940 #### [facility] [address] [place], [place], [address] Eosinophil percentageOrdered By: Scott Steele on 12-18-2024 Eosinophils/100 WBC (Bld) 0.5 % 0-5 [facility] Erythrocyte distribution wid th ratioOrdered By: Scott Steele on 12-18-2024 Erythrocyte distribution width (RBC) [Ratio] 14.6 % 11.6-14.6 [facility] Erythrocyte distribution wid th standard deviationOrdered By: Scott Steele on 12-18-2024 Erythrocyte distribution width (RBC) [Ratio] 48.8 fl High 35.1-43.9 [facility] Glomerular filtration rate ( GFR) estimation/1.73 sq m using serum, plasma, or whole bOrdered By: Scott Steele on 12-18-2024 GFR/1.73 sq M.predicted among non-blacks MDRD (S/P/Bld) [Vol rate/Area] 63 mL/min/{1.73_m2} >60 [facility] Comment on above: mL/min/1.73m2 CKD-EP I Creatinine Equation (2020) Hematocrit Auto (Bld) [Volum e fraction]Ordered By: Scott Steele on 12-18-2024 Hematocrit (Bld) [Volume fraction] 38.9 % 37-47 [facility] Hemoglobin A1con 12-18-2024 HbA1c (Bld) [Mass fraction] 7.4 % High <=5.6 [facility] Comment on above: Order Comment: Order Date: 12/18/24 Order Info: 4548-4 - A1C Result Comment: Norm al < 5.7 % Prediabetic 5.7 - 6.4 % Diabetic >or= 6.5 % Please note range changes. Performed By: #### L 500.4050, L100.0100, L501.9520, L501.9985 #### [facility] [place], [address] Hemoglobin A1c percentageOrd ered By: Scott Steele on 12-18-2024 HbA1c (Bld) [Mass fraction] 7.4 % High <5.7 [facility] Comment on above: Normal < 5.7 % Predi abetic 5.7 - 6.4 % Diabetic >or= 6.5 % Please note range changes. Hemoglobin measurementOrdere d By: Scott Steele on 12-18-2024 Hemoglobin (Bld) [Mass/Vol] 12.6 g/dL 12.0-15.0 [facility] Immature granulocytes/100 WB C Auto (Bld)Ordered By: Scott Steele on 12-18-2024 Immature granulocytes/100 WBC (Bld) 0.400 % 0.0-0.9 [facility] Comment on above: IG% - Immature Granu locytes (promyelocytes, myelocytes and metamyelocytes) > 1% indicates that a LEFT SHIFT is Present. Laboratory - Chemistry and C hemistry - challengeOrdered By: Scott Steele on 12-18-2024 AST [Catalytic activity/Vol] 22 U/L <32 [facility] MCV (mean corpuscular volume ) determinationOrdered By: Scott Steele on 12-18-2024 MCV (RBC) [Entitic vol] 90.3 fL 81-99 [facility] Mean corpuscular hemoglobin (MCH) determinationOrdered By: Scott Steele on 12-18-2024 MCH (RBC) [Entitic mass] 29.2 pg 27.0-32.0 [facility] Mean corpuscular hemoglobin concentration (MCHC) determinationOrdered By: Scott Steele on 12-18-2024 MCHC (RBC) [Mass/Vol] 32.4 g/dL 32-36 [facility] Mean platelet volume determi nationOrdered By: Scott Steele on 12-18-2024 Platelet mean volume (Bld) [Entitic vol] 11.8 fL 6.2-12.0 [facility] Monocyte percentageOrdered B y: Scott Steele on 12-18-2024 Monocytes/100 WBC (Bld) 7.1 % 0-10 [facility] Neutrophil percentageOrdered By: Scott Steele on 12-18-2024 Neutrophils/100 WBC (Bld) 69.4 % 47-70 [facility] Nucleated red blood cell per centageOrdered By: Scott Steele on 12-18-2024 Nucleated RBC/100 WBC (Bld) [Ratio] 0 % 0-5 [facility] Platelet countOrdered By: Kanwal Steele on 12-18-2024 Platelets (Bld) [#/Vol] 283 10*3/uL 150-450 [facility] Potassium measurement (mass/ volume)Ordered By: Scott Steele on 12-18-2024 Potassium (Unsp spec) [Mass/Vol] 4.4 mmol/L 3.3-5.1 [facility] RBC Auto (Bld) [#/Vol]Ordere d By: Scott Steele on 12-18-2024 RBC (Bld) [#/Vol] 4.31 10*6/uL 4.2-5.4 [facility] Serum creatinine measurement (mass/volume)Ordered By: Scott Steele on 12-18-2024 Creatinine [Mass/Vol] 0.98 mg/dL 0.70-1.20 [facility] Serum globulin measurementOr dered By: Scott Steele on 12-18-2024 Globulin (S) [Mass/Vol] 3.2 g/dL 2.2-4.2 [facility] Serum glucose measurement (m ass/volume)Ordered By: Scott Steele on 12-18-2024 Glucose [Mass/Vol] 96 mg/dL 70-99 [facility] Serum or plasma alanine zhang otransferase (ALT) measurementOrdered By: Scott Steele on 12-18-2024 ALT [Catalytic activity/Vol] 22 U/L <35 [facility] Serum or plasma albumin charlotte urement (mass/volume)Ordered By: Scott Steele on 12-18-2024 Albumin [Mass/Vol] 4.5 g/dL 3.4-4.8 [facility] Serum or plasma albumin/glob ulin mass ratioOrdered By: Scott Steele on 12-18-2024 Albumin/Globulin [Mass ratio] 1.4 {ratio} 0.9-2.4 [facility] Serum or plasma alkaline diana sphatase measurementOrdered By: Scott Steele on 12-18-2024 ALP [Catalytic activity/Vol] 42 U/L 35-104 [facility] Serum or plasma calcium charlotte urement (mass/volume)Ordered By: Scott Steele on 12-18-2024 Calcium [Mass/Vol] 10.3 mg/dL 7.6-11.0 [facility] Serum or plasma urea nitroge n measurement (mass/volume)Ordered By: Scott Steele on 12-18-2024 Urea nitrogen [Mass/Vol] 20 mg/dL High 4-19 [facility] Sodium levelOrdered By: Scott Steele on 12-18-2024 Sodium [Moles/Vol] 139 mmol/L 133-145 [facility] TSH DL <= 0.005 mIU/L QnOrde red By: Scott Steele on 12-18-2024 TSH Qn 1.260 uIU/mL 0.300-4.200 [facility] Thyroid Stim Hormone (TSH)on 12-18-2024 TSH 1.260 uIU/mL Normal 0.300-4.200 [facility] Comment on above: Order Comment: Order Date: 12/18/24 Order Info: [id number] - CMP Order Info: 3016-3 - TSH Performed By: #### L 500.4050, L100.0100, L501.9520, L501.9985 #### [facility] [address] [place] [address]. [place], [address] Total proteinOrdered By: Syed Steele on 12-18-2024 Protein [Mass/Vol] 7.7 g/dL 5.9-8.4 [facility] White blood cell (WBC) count Ordered By: Scott Steele on 12-18-2024 WBC (Bld) [#/Vol] 11.4 10*3/uL High 4.4-11.0 [facility] Orthopedic Visit Reporton Orthopedic Visit Report [facility] [address] [place] [address] OFFICE VISIT Date of Service: 12/04/24 MR#: [id number] Acct: [id number] Name: MARTHA FABIAN Rep #: [id number] : 1955 Provider: Dr. Kong ramirez, DO Age/Sex: 69/F Location: [facility] Status: Signed Intake Vital Signs 11/26/24 10:26 12/04/24 10:21 Height 5 ft 3 in 5 ft 3 in Weight: 177 lb 3 oz 176 lb 4 oz BMI 31.4 31.2 BP 127/72 H Blood Pressure Location Lt brachial Position Sitting Respiration 18 Pulse 77 Pulse Source Monitor Temp 97.7 F L Pulse Oximetry (%) 94 Oxygen Delivery Method room air Intake Visit Reasons: RIGHT HIP Chief Complaint: Right hip pain Accompanied by: Son Is patient in pain?: Yes Pain scale (1-10): 6 Allergies empagliflozin (From Jardiance) Adverse Reaction (Unknown, Verified 12/04/24 10:24) yeast infection Medications ???Medication ???Instructions ???Recorded ???Confirmed ???Type aspirin 81 mg tablet,delayed 81 mg PO DAILY 10/19/18 12/04/24 H istory release (Adult Low Dose Aspirin) omeprazole 40 mg capsule,delayed 40 mg PO DAILY 01/22/19 12/04/24 H istory release calcium carbonate 600 mg PO DAILY 02/05/19 12/04/24 History cholecalciferol (vitamin D3) 50 2,000 unit PO DAILY 02/05/1912/04 History mcg (2,000 unit) capsule multivitamin with minerals 1 ea PO DAILY 02/05/19 12/04/24 Hi story dapagliflozin propanediol 10 mg 10 mg PO QAM 06/28/24 12/04/24 His tory tablet (Farxiga) rosuvastatin 20 mg tablet 20 mg PO QDAY 06/28/24 12/04/24 Hi story verapamil 40 mg tablet 120 mg PO DAILY 06/28/24 12/04/24 History ferrous sulfate 325 mg (65 mg 325 mg PO QDAY 10/17/24 12/04/24 H istory iron) tablet lisinopril 20 mg tablet 20 mg PO QDAY 10/17/24 12/04/24 Hi story mecobalamin (vitamin B12) 500 mcg mcg PO 10/17/24 12/04/24 History chewable tablet metformin 1,000 mg tablet 1,000 mg PO BID 10/17/24 12/04/24 History Have you fallen in the past year?: No PFSH Medical History Vitamin D deficiency Vitamin B deficiency CKD [...] walking frequency: 1-2 times per week HPI RIGHT HIP Details: This documentation accurately reflects the service provided and the decisions made by me, Dr. Kong Murrell, DO 12/04/24827. Part of today???s visit was documented by Louis Pablo MA, acting as scribe. MARTHA FABIAN is a 69 year old F here today for right hip. Patient is having right hip pain. The pain can be sharp, stabbing, sore, achy, and throbbing pain. Sometimes the pain will go down medial thigh to the right knee. She states that the pain worse in the groin area and goes up to the lower back. This has been going on for over 25 years, but it has been gradually getting worse. Patient states that she doesn't remember doing anything to injure it.She states that she got xrays done about [address] Harris office. Patient hasn't had any surgeries on her right hip. Walking makes the pain worse. Standing for a long period of time makes the pain worse. Any twisting movements can makes the pain worse. Patient hasn't had any injections in her hip. She hasn't done any physical therapy for her hip. Patient is a type 2 diabetic, but denies any blood thinners.Patient denies any smoking or drug use. Patient has to walk with a cane, be cause her balance isn't very good. patient has been taking skyrizi for psoriasis but it elevated some of her blood work and has been off of it s (more content not included)... Normal [facility] Oncology Visit Reporton Oncology Visit Report [facility] [address] [place] [address] OFFICE VISIT Date of Service: 11/26/24 1025 MR#: [id number] Acct: [id number] Name: MARTHA FABIAN Rep #: [id number] : 1955 From: Kong Vieira MD Age/Sex: 69/F Location: [facility] Status: Signed HPI Subjective Date of Service 11/26/24 Chief Complaint Follow up for abnormal serum protein. History of Present Illness 69-year-old woman was found to have high IgM level with Slight increase in IgG serum light chains at [facility]. She does not want to go back to [facility] so comes in for further evaluation. She denies pain, fever, weight loss or night sweats. She has been found to have iron deficiency and currently taking oral iron. She had colonoscopy on 09/04/2024 which showed diverticulosis with stool in the colon. Had blood work, CT done to R/O malignancy and comes for follow up. Has pain R hip. [facility] Medical History Vitamin D deficiency Vitamin B deficiency CKD [...] in: walking frequency: 1-2 times per week Intake Vital Signs 10/28/24 09:05 11/26/24 10:26 Height 5 ft 3 in 5 ft 3 in Weight: 80.371 kg BMI 31.4 BP 127/72 H Blood Pressure Location Lt brachial Position Sitting Respiration 18 Pulse 77 Pulse Source Monitor Temp 97.7 F L Temperature Source Temporal Artery Pulse Oximetry (%) 94 Oxygen Delivery Method room air Intake Accompanied by: Son Is patient in pain?: Yes (hips) Pain scale (1-10): 7 Allergies empagliflozin (From Jardiance) Adverse Reaction (Unknown, Verified 11/26/24 10:33) yeast infection Medications ???Medication ???Instructions ???Recorded ???Confirmed ???Type aspirin 81 mg tablet,delayed 81 mg PO DAILY 10/19/18 11/26/24 H istory release (Adult Low Dose Aspirin) omeprazole 40 mg capsule,delayed 40 mg PO DAILY 01/22/19 11/26/24 H istory release calcium carbonate 600 mg PO DAILY 02/05/19 11/26/24 History cholecalciferol (vitamin D3) 50 2,000 unit PO DAILY 02/05/1911/26 History mcg (2,000 unit) capsule multivitamin with minerals 1 ea PO DAILY 02/05/19 11/26/24 Hi story dapagliflozin propanediol 10 mg 10 mg PO QAM 06/28/24 11/26/24 His tory tablet (Farxiga) rosuvastatin 20 mg tablet 20 mg PO QDAY 06/28/24 11/26/24 Hi story verapamil 40 mg tablet 120 mg PO DAILY 06/28/24 11/26/24 History ferrous sulfate 325 mg (65 mg 325 mg PO QDAY 10/17/24 11/26/24 H istory iron) tablet lisinopril 20 mg tablet 20 mg PO QDAY 10/17/24 11/26/24 Hi story mecobalamin (vitamin B12) 500 mcg mcg PO 10/17/24 11/26/24 History chewable tablet metformin 1,000 mg tablet 1,000 mg PO BID 10/17/24 11/26/24 History Have you fallen in the past year?: No Central Venous Access Central Venous Access: No Laboratory Tests 10/28/24 11:01 WBC 9.5 Hgb 12.6 Hct 38.5 Plt Count 300 Sodium 140 Potassium 4.5 Chloride 103 Carbon Dioxide 21.1 BUN 19 Creatinine 0.96 Glucose 148 H Uric Acid 3.8 Calcium 10.0 Phosphorus 3.4 Magnesium 1.9 Iron 37 L Iron Saturation 11.8 L Ferritin 21 L Total Bilirubin 0.26 GGT 18 AST 22 ALT 18 Alkaline Phosphatase 41 Lactate Dehydrogenase 158 C-React Prot Ext Range < 3.00 Total Protein 7.7 Total Protein (PEP) 7.4 Albumin 4.6 Globulin 3.1 Vitamin B12 622 IgG 789 IgA 176 IgM 598 H DEE M-Kris Comment: DEE Comments Comment Free Ulmer LC, Quant 30.9 H Free Lambda LC, Quant (more content not included)... Normal [facility] CT Chest, Abd, Pel w/Contras ton 11-20-2024 CT Chest, Abd, Pel w/Contrast [facility] [address] [place], [place] [id number] CT Chest, Abd, Pel w/Contrast MR#: [id number] Acct: [id number] Name: MARTHA FABIAN Rep #: [id number] : 1955 F 69 From: Taon Calero MD PCP: Dr. Scott Steele MD Status: REG CLI Study: CT Chest, Abd, Pel w/Contrast Date of Exam: Exam# [id number] Ordering Dr: Kong Vieira MD PROCEDURE: CT CHEST, ABD, PEL W/CONTRAST 11/20/2024 REASON FOR EXAM: IV ONLY-MACROGLOBULINEMIA TECHNIQUE: Chest, abdomen and pelvis CT with intravenous contrast. Coronal and Sagittal reconstruction series were provided. One or more dose reduction techniques were used (e.g., Automated exposure control, adjustment of the mA and/or kV according to patient size, use of iterative reconstruction technique. PATIENT PREPARATION: Per protocol ORAL CONTRAST TYPE: None. AMOUNT: mL CONTRAST: Isovue 370 VOLUME: 98mL Gauge IV RADIATION DOSE SUMMARY: CTDlvol: 70 mGy DLP: 1776 mGycm COMPARISON: Bone survey 11/13/2024 FINDINGS: Unremarkable base of neck and axilla. Thoracic spine degeneration. Normal esophagus. Upper limits of normal heart size. No acute vascular pathology. No acute chest wall findings. Central airways patent. Dependent atelectasis. No consolidation, effusion, or pneumothorax. No suspicious lung nodule. Normal gallbladder. Upper abdominal solid organs show no acute findings. There is diffuse hepatic steatosis. Periportal adenopathy, often related to medical liver disease. No hydronephrosis or ureteral stone. Normal bladder. Status post hysterectomy. No retroperitoneal or pelvic adenopathy. No free air. Nondistended bowel. Normal appendix. No acute large bowel findings. Lumbar spine degeneration. No acute abdominal wall findings. Advanced right hip osteoarthritis possibly on a posttraumatic basis. CT/CT Chest, Abd, Pel w/Contrast IMPRESSION: No evidence for chest, abdomen, or pelvic metastatic disease. Reading Location: [place] [address] CC: Dr. Scott Steele MD; Dr. Kong Vieira MD Product Support Engineer: Signed Normal [facility] Soft Tissue Neck WITH Contra ston 11-20-2024 Soft Tissue Neck WITH Contrast [facility] [address] [place] [address] Soft Tissue Neck WITH Contrast MR#: [id number] Acct: [id number] Name: MARTHA FABIAN Rep #: [id number] : 1955 F 69 From: Franklin Thomas MD PCP: Dr. Scott Steele MD Status: REG CLI Study: Soft Tissue Neck WITH Contrast Date of Exam: 0 11/20/24 Exam# [id number] Ordering Dr: Kong Vieira MD PROCEDURE: SOFT TISSUE NECK WITH CONTRAST 11/20/2024 REASON FOR EXAM: MACROGLOBULINEMIA TECHNIQUE: SOFT TISSUE NECK WITH CONTRAST CONTRAST: The amount of contrast given is not specified. One or more dose reduction techniques were used (e.g., Automated exposure control, adjustment of the mA and/or kV according to patient size, use of iterative reconstruction technique). RADIATION DOSE SUMMARY: CTDlvol: 15.20 mGy DLP: 1776 dot 3 9 mGycm FINDINGS: Symmetric appearance of the orbits. Normal nasopharynx and pterygoid palatine fossa. Normal parotid glands are noted. The oral cavity including the tongue appear symmetric. Normal submandibular glands. No mucosal asymmetry of the palatine tonsils. Normal aryepiglottic folds and epiglottis. Normal vocal folds and thyroid. Intact thoracic inlet. No enlarged cervical lymph nodes. No bony destructive or lucent changes. CT/Soft Tissue Neck WITH Contrast IMPRESSION: Study within normal limits Reading Location: [facility] CC: Dr. Scott Steele MD; Dr. Kong Vieira MD Product Support Engineer: Signed Normal [facility] Bone Survey Comp(Axial Appen d)on 11-12-2024 Bone Survey Comp(Axial Append) [facility] [address] [place] [address] Bone Survey Comp(Axial Append) MR#: [id number] Acct: [id number] Name: MARTHA FABIAN Rep #: [id number] : 1955 F 69 From: Joseph waller MD PCP: Dr. Scott Steele MD Status: REG CLI Study: Bone Survey Comp(Axial Append) Date of Exam: 0 11/12/24 Exam# [id number] Ordering Dr: Kong Vieira MD PROCEDURE: BONE [...] suspicious bone lesion is identified. [facility] CC: Dr. Scott Steele MD; Dr. Kong Vieira MD Product Support Engineer: Signed Normal [facility] Stool Occult Blood iFOBon STOB Negative Normal [facility] Comment on above: Performed By: #### L 500.4050, L100.0100, L501.9520, L501.9985 #### [facility] [address] [place], [place], [id number] Stool gastrointestinal hemog lobin detection by immunologic methodOrdered By: Kong Vieira on 11-06-2024 Lower GI hemoglobin IA Ql (Stl) [facility] Celiac AB,Comprehensiveon ANTIGLIADIN IGA 3 units Normal 0-19 [facility] Comment on above: Result Comment: Nega tive 0 - 19 Weak Positive 20 - 30 Moderate to Strong Positive >30 Performed By: #### L 500.4050, L100.0100, L501.9520, L501.9985 #### [facility] [address] [place], [address] ANTIGLIADIN IGG 1 units Normal 0-19 [facility] Comment on above: Result Comment: Nega tive 0 - 19 Weak Positive 20 - 30 Moderate to Strong Positive >30 Performed By: #### L 500.4050, L100.0100, L501.9520, L501.9985 #### [facility] [address] [place], [address] ENDOMYSIAL IGA Negative Normal Negative [facility] Comment on above: Performed By: #### L 500.4050, L100.0100, L501.9520, L501.9985 #### [facility] [address] [place], [address] tTG IGA <2 Normal 0-3 [facility] Comment on above: Result Comment: Nega tive 0 - 3 Weak Positive 4 - 10 Positive >10 Tissue Transglutaminase (tTG) has been identified as the endomysial antigen. Studies have demonstr- ated that endomysial IgA antibodies have over 99% specificity for gluten sensitive enteropathy. Performed By: #### L 500.4050, L100.0100, L501.9520, L501.9985 #### [facility] [address] [place], [address] tTG IGG <2 Normal 0-5 [facility] Comment on above: Result Comment: Nega tive 0 - 5 Weak Positive 6 - 9 Positive >9 Performed By: #### L 500.4050, L100.0100, L501.9520, L501.9985 #### [facility] [address] [place], [address] DEE + Protein Elect, Serumon 10-31-2024 Albumin [Mass/Vol] 4.1 g/dL Normal 2.9-4.4 [facility] Comment on above: Order Comment: N Performed By: #### L 503.6550, L503.6150 #### [facility] [address] [place], [address] Albumin/Globulin [Mass ratio] 1.3 {ratio} Normal 0.7-1.7 [facility] Comment on above: Order Comment: N Performed By: #### L 503.6550, L503.6150 #### [facility] [address] [place], [address] PWVKF-7-WFVM 0.2 g/dL Normal 0.0-0.4 [facility] Comment on above: Order Comment: N Performed By: #### L 503.6550, L503.6150 #### [facility] [address] [place], [address] JENAF-6-TUCS 0.9 g/dL Normal 0.4-1.0 [facility] Comment on above: Order Comment: N Performed By: #### L 503.6550, L503.6150 #### [facility] [address] [place], [address] BETA GLOBULIN 1.0 g/dL Normal 0.7-1.3 [facility] Comment on above: Order Comment: N Performed By: #### L 503.6550, L503.6150 #### [facility] [address] [place], [address] GAMMA GLOBULIN 1.1 g/dL Normal 0.4-1.8 [facility] Comment on above: Order Comment: N Performed By: #### L 503.6550, L503.6150 #### [facility] [address] [place], [address] Globulin (S) [Mass/Vol] 3.3 g/dL Normal 2.2-3.9 [facility] Comment on above: Order Comment: N Performed By: #### L 503.6550, L503.6150 #### [facility] [address] [place], [address] DEE RESULT,S Comment: Normal . [facility] Comment on above: Order Comment: N Result Comment: Pres ence of monoclonal protein is unclear at this time. Suggest repeat in 3 to 6 months if clinically indicated. Performed By: #### L 503.6550, L503.6150 #### [facility] [address] [place], [address] IMMUNOGLOB A QN 178 mg/dL Normal 87-352 [facility] Comment on above: Order Comment: N Performed By: #### L 503.6550, L503.6150 #### [facility] [address] [place], [address] IMMUNOGLOB G QN 772 mg/dL Normal 586-1602 [facility] Comment on above: Order Comment: N Performed By: #### L 503.6550, L503.6150 #### [facility] [address] [place], [address] IMMUNOGLOB M QN 603 mg/dL High 26-217 [facility] Comment on above: Order Comment: N Performed By: #### L 503.6550, L503.6150 #### [facility] [address] [place], [address] M-Kris Comment: Normal Not Observed [facility] Comment on above: Order Comment: N Result Comment: ASYM METRICAL GAMMA Performed By: #### L 503.6550, L503.6150 #### [facility] [address] [place], [address] NOTE: Comment Normal . [facility] Comment on above: Order Comment: N Result Comment: Prot ein electrophoresis scan will follow via computer, mail, or franchise broker delivery. Performed By: #### L 503.6550, L503.6150 #### [facility] [address] [place], [address] Protein [Mass/Vol] 7.4 g/dL Normal 6.0-8.5 [facility] Comment on above: Order Comment: N Performed By: #### L 503.6550, L503.6150 #### [facility] [address] [place], [address] L501.5101on 10-31-2024 GGTP 18 IU/L Normal 0-60 [facility] Comment on above: Result Comment: Perf ormed at: - [facility] [id number] Warehouse Insulation Worker: Han Das PhD, Phone: [phone] Performed By: #### L 503.6550, L503.6150 #### [facility] [address] [place], [address] Immunoglobulins G/A/Mon 06-1 -2024 IMMUNOGLOB A QN 176 mg/dL Normal 87-352 [facility] Comment on above: Order Comment: N Performed By: #### L 503.6550, L503.6150 #### [facility] [address] [place], [address] IMMUNOGLOB G QN 789 mg/dL Normal 586-1602 [facility] Comment on above: Order Comment: N Performed By: #### L 503.6550, L503.6150 #### [facility] [address] [place], [address] IMMUNOGLOB M QN 598 mg/dL High 26-217 [facility] Comment on above: Order Comment: N Performed By: #### L 503.6550, L503.6150 #### [facility] [address] [place], [address] Ulmer Lambda Light Chainson 10-29-2024 FR KAPPA LT CHN 30.9 mg/L Abnormal 3.3-19.4 [facility] Comment on above: Performed By: #### L 503.6550, L503.6150 #### [facility] [address] [place], [address] FR LAMBDA LT CH 29.9 mg/L Abnormal 5.7-26.3 [facility] Comment on above: Performed By: #### L 503.6550, L503.6150 #### [facility] [address] [place], [address] KAPPA/LAMBDA % 1.03 Normal 0.26-1.65 [facility] Comment on above: Result Comment: Perf ormed at: - [facility] [address] [id number] Warehouse Insulation Worker: Han Das PhD, Phone: [phone] Performed By: #### L 689.6508, L507.8433 #### [facility] [address] [place], [place], [address] L3410.9992on 10-29-2024 [facility] Misc. COMMENT Normal . [facility] Comment on above: Order Comment: [id number] 0ANTI MAG IGM AB - SERUM - RMT Result Comment: Perf ormed at: CB - [facility] [place] [address] [place], [place] [id number] Warehouse Insulation Worker: Han Das PhD, Phone: [phone] Performed By: #### L 770.7717, I491.6650 #### [facility] [address] [place], [address] Absolute lymphocyte countOrd ered By: Kong Vieira on 10-28-2024 Lymphocytes Auto (Unsp spec) [#/Vol] 2.15 10*3/uL 0.83-4.51 [facility] Absolute neutrophil countOrd ered By: Kong Vieira on 10-28-2024 Neutrophils (Bld) [#/Vol] 6.5 10*3/uL 2.0-7.7 [facility] Albumin Elph [Mass/Vol]Order ed By: Kong Vieira on 10-28-2024 Albumin [Mass/Vol] 4.1 g/dL 2.9-4.4 [facility] Anion gap in Serum or Plasma Ordered By: Kong Vieira on 10-28-2024 Anion gap [Moles/Vol] 16 mmol/L High 5-15 [facility] Comment on above: Previous reported re sult: 15 Edited by: CELIO on 10/28/24:1215 AMENDED REPORT 10/28/24 1215 GAP previously reported as: 15 Automated lymphocyte count a s percentage of total leukocytesOrdered By: Kong Vieira on 10-28-2024 Lymphocytes/100 WBC Auto (Unsp spec) 22.7 % 19-41 [facility] BUN/creatinine ratioOrdered By: Kong Vieira on 10-28-2024 Urea nitrogen/Creatinine [Mass ratio] 19.6 mg/mg 10-20 [facility] Comment on above: Previous reported re sult: 20.3 RATIOEdited by: AUTOINS on 10/28/24:1215 AMENDED REPORT 10/28/241214 BUN/CRE previously reported as: 20.3 H RATIO Basophil percentageOrdered B y: Kong Vieira on 10-28-2024 Basophils/100 WBC (Bld) 0.6 % 0-1 [facility] Bilirubin, totalOrdered By: Kong Vieira on 10-28-2024 Bilirubin [Mass/Vol] 0.26 mg/dL 0.00-1.30 [facility] Comment on above: Previous reported re sult: 0.28 mg/dLEdited by: AUTOINS on 10/28/24:1215 AMENDED REPORT 10/28/241214 T BILI previously reported as: 0.28 mg/dL CBC W/Diff, Automatedon Absolute Lymph 2.15 X10 3/uL Normal 0.83-4.51 [facility] Comment on above: Performed By: #### L 503.6550, L503.6150 #### [facility] [address] [place], [address] Absolute Neut 6.5 X10 3/uL Normal 2.0-7.7 [facility] Comment on above: Performed By: #### L 503.6550, L503.6150 #### [facility] [address] [place], [address] Basophils/100 WBC (Bld) 0.6 % Normal 0-1 [facility] [facility] Comment on above: Performed By: #### L 503.6550, L503.6150 #### [facility] [address] [place], [address] Eosinophils/100 WBC (Bld) 0.4 % Normal 0-5 [facility] Comment on above: Performed By: #### L 503.6550, L503.6150 #### [facility] [address] [place], [address] Erythrocyte distribution width (RBC) [Ratio] 14.5 % Normal 11.6-14.6 [facility] Comment on above: Performed By: #### L 503.6550, L503.6150 #### [facility] [address] [place], [address] Hematocrit (Bld) [Volume fraction] 38.5 % Normal 37-47 [facility] Comment on above: Performed By: #### L 503.6550, L503.6150 #### [facility] [address] [place], [address] Hemoglobin (Bld) [Mass/Vol] 12.6 g/dL Normal 12.0-15.0 [facility] Comment on above: Performed By: #### L 503.6550, L503.6150 #### [facility] [address] [place], [address] IG% 0.400 Normal 0.0-0.9 [facility] Comment on above: Result Comment: IG% - Immature Granulocytes (promyelocytes, myelocytes and metamyelocytes) > 1% indicates that a LEFT SHIFT is Present. Performed By: #### L 503.6550, L503.6150 #### [facility] [address] [place], [address] Lymphocytes/100 WBC (Bld) 22.7 % Normal 19-41 [facility] Comment on above: Performed By: #### L 503.6550, L503.6150 #### [facility] [address] [place], [address] MCH (RBC) [Entitic mass] 28.9 pg Normal 27.0-32.0 [facility] Comment on above: Performed By: #### L 503.6550, L503.6150 #### [facility] [address] [place], [address] MCHC (RBC) [Mass/Vol] 32.7 g/dL Normal 32-36 [facility] Comment on above: Performed By: #### L 503.6550, L503.6150 #### [facility] [address] [place], [address] MCV (RBC) [Entitic vol] 88.3 fL Normal 81-99 [facility] Comment on above: Performed By: #### L 503.6550, L503.6150 #### [facility] [address] [place], [address] Monocytes/100 WBC (Bld) 7.7 % Normal 0-10 [facility] Comment on above: Performed By: #### L 503.6550, L503.6150 #### [facility] [address] [place], [address] Neutrophils/100 WBC (Bld) 68.2 % Normal 47-70 [facility] Comment on above: Performed By: #### L 503.6550, L503.6150 #### [facility] [address] [place], [address] Nucleated RBC (Bld) [#/Vol] 0 10*3/uL Normal 0-5 [facility] Comment on above: Performed By: #### L 503.6550, L503.6150 #### [facility] [address] [place], [address] Platelet mean volume (Bld) [Entitic vol] 10.5 fL Normal 6.2-12.0 [facility] Comment on above: Performed By: #### L 503.6550, L503.6150 #### [facility] [address] [place], [address] Platelets (Bld) [#/Vol] 300 10*3/uL Normal 150-450 [facility] Comment on above: Performed By: #### L 503.6550, L503.6150 #### [facility] [address] [place], [address] RBC (Bld) [#/Vol] 4.36 10*6/uL Normal 4.2-5.4 [facility] Comment on above: Performed By: #### L 503.6550, L503.6150 #### [facility] [address] [place], [address] RDW SD 46.7 fl High 35.1-43.9 [facility] Comment on above: Performed By: #### L 503.6550, L503.6150 #### [facility] [address] [place], [address] WBC (Bld) [#/Vol] 9.5 10*3/uL Normal 4.4-11.0 [facility] Comment on above: Performed By: #### L 503.6550, L503.6150 #### [facility] [address] [place], [address] CRPon 10-28-2024 C-REACTIVE PROT < 3.00 Normal 0.0-3.0 [facility] Comment on above: Performed By: #### L 503.6550, L503.6150 #### [facility] [address] [place], [address] Carbon dioxide, total [Moles /volume] in Central venous bloodOrdered By: Kong Vieira on 10-28-2024 CO2 [Moles/Vol] 21.1 mmol/L 21.0-32.0 [facility] Comment on above: Previous reported re sult: 22.7 mmol/LEdited by: CELIO on 10/28/24:1215 AMENDED REPORT 10/28/24 1215 CO2 previously reported as: 22.7 mmol/L Chloride assayOrdered By: Kanwal Vieira on 10-28-2024 Chloride [Moles/Vol] 103 mmol/L 98-108 [facility] Comprehensive Metabolic Prof ilon 10-28-2024 Albumin [Mass/Vol] 4.6 g/dL Normal 3.4-4.8 [facility] Comment on above: Performed By: #### L 503.6550, L503.6150 #### [facility] [address] [place], [address] Albumin/Globulin [Mass ratio] 1.5 {ratio} Normal 0.9-2.4 [facility] Comment on above: Performed By: #### L 503.6550, L503.6150 #### [facility] [address] [place], [address] ALK PHOS 41 U/L Normal 35-104 [facility] Comment on above: Result Comment: AMENDED REPORT 10/28/245 ALK P previously reported as: 42 U/L Performed By: #### L 503.6550, L503.6150 #### [facility] [address] [place], [address] ALT [Catalytic activity/Vol] 18 U/L Normal <=34 [facility] Comment on above: Performed By: #### L 503.6550, L503.6150 #### [facility] [address] [place], [address] AST [Catalytic activity/Vol] 22 U/L Normal <=31 [facility] Comment on above: Performed By: #### L 503.6550, L503.6150 #### [facility] [address] [place], [address] Bilirubin [Mass/Vol] 0.26 mg/dL Normal 0.00-1.30 [facility] Comment on above: Result Comment: AMENDED REPORT 10/28/245 T BILI previously reported as: 0.28 mg/dL Performed By: #### L 503.6550, L503.6150 #### [facility] [address] [place], [address] BUN/CRE 19.6 RATIO Normal 10-20 [facility] Comment on above: Result Comment: AMENDED REPORT 10/28/241214 BUN/CRE previously reported as: 20.3 H RATIO Performed By: #### L 503.6550, L503.6150 #### [facility] [address] [place], [address] Calcium [Mass/Vol] 10.0 mg/dL Normal 7.6-11.0 [facility] Comment on above: Result Comment: AMENDED REPORT 10/28/241214 CA previously reported as: 10.2 mg/dL Performed By: #### L 503.6550, L503.6150 #### [facility] [address] [place], [address] Chloride [Moles/Vol] 103 mmol/L Normal 98-108 [facility] Comment on above: Performed By: #### L 503.6550, L503.6150 #### [facility] [address] [place], [address] CO2 [Moles/Vol] 21.1 mmol/L Normal 21.0-32.0 [facility] Comment on above: Result Comment: AMENDED REPORT 10/28/241214 CO2 previously reported as: 22.7 mmol/L Performed By: #### L 503.6550, L503.6150 #### [facility] [address] [place], [address] Creatinine [Mass/Vol] 0.96 mg/dL Normal 0.70-1.20 [facility] Comment on above: Result Comment: AMENDED REPORT 10/28/241214 CREAT,SERUM previously reported as: 0.92 mg/dL Performed By: #### L 503.6550, L503.6150 #### [facility] [address] [place], [address] GAP 16 High 5-15 [facility] Comment on above: Result Comment: AMENDED REPORT 10/28/24 1215 GAP previously reported as: 15 Performed By: #### L 503.6550, L503.6150 #### [facility] [address] [place], [address] Globulin (S) [Mass/Vol] 3.1 g/dL Normal 2.2-4.2 [facility] Comment on above: Performed By: #### L 503.6550, L503.6150 #### [facility] [address] [place], [address] Glucose [Mass/Vol] 148 mg/dL High 70-99 [facility] Comment on above: Performed By: #### L 503.6550, L503.6150 #### [facility] [address] [place], [address] Potassium [Moles/Vol] 4.5 mmol/L Normal 3.3-5.1 [facility] Comment on above: Performed By: #### L 503.6550, L503.6150 #### [facility] [address] [place], [address] Sodium [Moles/Vol] 140 mmol/L Normal 133-145 [facility] Comment on above: Performed By: #### L 503.6550, L503.6150 #### [facility] [address] [place], [address] T PROT 7.7 g/dL Normal 5.9-8.4 [facility] Comment on above: Performed By: #### L 503.6550, L503.6150 #### [facility] [address] [place], [address] Urea nitrogen [Mass/Vol] 19 mg/dL Normal 4-19 [facility] Comment on above: Performed By: #### L 503.6550, L503.6150 #### [facility] [address] [place], [place], [address] Eosinophil percentageOrdered By: Kong Vieira on 10-28-2024 Eosinophils/100 WBC (Bld) 0.4 % 0-5 [facility] Erythrocyte Sed Rateon 10-28 SED RATE 22 mm/hr Normal 0-30 [facility] Comment on above: Performed By: #### L 503.6550, L503.6150 #### [facility] [address] [place], [address] Erythrocyte distribution wid th ratioOrdered By: Kong Vieira on 10-28-2024 Erythrocyte distribution width (RBC) [Ratio] 14.5 % 11.6-14.6 [facility] Erythrocyte distribution wid th standard deviationOrdered By: Kong Vieira on 10-28-2024 Erythrocyte distribution width (RBC) [Ratio] 46.7 fl High 35.1-43.9 [facility] Erythrocyte sedimentation ra teOrdered By: Kong Vieira on 10-28-2024 ESR (Bld) [Velocity] 22 mm/h 0-30 [facility] Ferritinon 10-28-2024 Ferritin [Mass/Vol] 21 ng/mL Low 22-378 [facility] Comment on above: Performed By: #### L 503.6550, L503.4050 #### [facility] [address] [place], [place], [id number] Gamma glutamyl transferase ( GGT) measurementOrdered By: Kong Vieira on 10-28-2024 Amylase [Catalytic activity/Vol] 18 U/L 0-60 [facility] Comment on above: Performed at: [address] [id number] Director: Han Das PhD, Phone: [phone] Glomerular filtration rate ( GFR) estimation/1.73 sq m using serum, plasma, or whole bOrdered By: Kong Vieira on 10-28-2024 GFR/1.73 sq M.predicted among non-blacks MDRD (S/P/Bld) [Vol rate/Area] 68 mL/min/{1.73_m2} >60 [facility] Comment on above: mL/min/1.73m2 CKD-EP I Creatinine Equation (2020) Hematocrit Auto (Bld) [Volum e fraction]Ordered By: Kong Vieira on 10-28-2024 Hematocrit (Bld) [Volume fraction] 38.5 % 37-47 [facility] Hemoglobin measurementOrdere d By: Kong Vieira on 10-28-2024 Hemoglobin (Bld) [Mass/Vol] 12.6 g/dL 12.0-15.0 [facility] Immature granulocytes/100 WB C Auto (Bld)Ordered By: Kong Dariel on 10-28-2024 Immature granulocytes/100 WBC (Bld) 0.400 % 0.0-0.9 [facility] Comment on above: IG% - Immature Granu locytes (promyelocytes, myelocytes and metamyelocytes) > 1% indicates that a LEFT SHIFT is Present. Interpretation of serum or p lasma protein pattern by immunofixation (narrative resultOrdered By: Kong Vieira on 10-28-2024 Protein Fractions Immunofixation Jose [Interp] Comment: g/dL Not Observed [facility] Comment on above: ASYMMETRICAL GAMMA Iron measurement (mass/mass) Ordered By: Kong Vieira on 10-28-2024 Iron (Unsp spec) [Mass/Mass] 37 ug/dL Low 50-170 [facility] Iron+Iron Binding Capacityon 10-28-2024 Iron [Mass/Vol] 37 ug/dL Low 50-170 [facility] Comment on above: Performed By: #### L 503.6550, L503.6150 #### [facility] [address] [place], [place], [id number] (851) UIBC 276 ug/dL Normal 228-428 [facility] Comment on above: Performed By: #### L 503.6550, L503.6150 #### [facility] [address] [place], [address] LDHon 06-09-2025 LDH 158 U/L Normal 84-246 [facility] Comment on above: Order Comment: 1 Performed By: #### L 503.6550, L503.6150 #### [facility] [address] [place], [place], [id number] Laboratory - Chemistry and C hemistry - challengeOrdered By: Kong Vieira on 10-28-2024 AST [Catalytic activity/Vol] 22 U/L <32 [facility] Lactate dehydrogenase (LDH) measurementOrdered By: Kong Vieira on 10-28-2024 LDH [Catalytic activity/Vol] 158 U/L 84-246 [facility] MCV (mean corpuscular volume ) determinationOrdered By: Kong Vieira on 10-28-2024 MCV (RBC) [Entitic vol] 88.3 fL 81-99 [facility] Magnesiumon 10-28-2024 Magnesium [Mass/Vol] 1.9 mg/dL Normal 1.5-2.2 [facility] Comment on above: Performed By: #### L 503.6550, L503.6150 #### [facility] [address] [place], [place], [address] Magnesium measurement (mass/ volume)Ordered By: Kong Vieira on 10-28-2024 Magnesium (Unsp spec) [Mass/Vol] 1.9 mg/dL 1.5-2.2 [facility] Mean corpuscular hemoglobin (MCH) determinationOrdered By: Kong Vieira on 10-28-2024 MCH (RBC) [Entitic mass] 28.9 pg 27.0-32.0 [facility] Mean corpuscular hemoglobin concentration (MCHC) determinationOrdered By: Kong Vieira on 10-28-2024 MCHC (RBC) [Mass/Vol] 32.7 g/dL 32-36 [facility] Mean platelet volume determi nationOrdered By: Kong Vieira on 10-28-2024 Platelet mean volume (Bld) [Entitic vol] 10.5 fL 6.2-12.0 [facility] Monocyte percentageOrdered B y: Kong Vieira on 10-28-2024 Monocytes/100 WBC (Bld) 7.7 % 0-10 [facility] Neutrophil percentageOrdered By: Kong Vieira on 10-28-2024 Neutrophils/100 WBC (Bld) 68.2 % 47-70 [facility] No Panel InformationOrdered By: Kong Vieira on 10-28-2024 Addendum Document Comment . [facility] Comment on above: Protein electrophore sis scan will follow via computer,mail, or franchise broker delivery. Tissue Transglutaminase IgG Ab <2 U/mL 0-5 [facility] Comment on above: Negative 0 - 5 Weak Positive 6 - 9 Positive >9 Unsaturated Iron Binding Capacity 276 ug/dL 228-428 [facility] Nucleated red blood cell per centageOrdered By: Kong Vieira on 10-28-2024 Nucleated RBC/100 WBC (Bld) [Ratio] 0 % 0-5 [facility] Oncology Visit Reporton 06 Oncology Visit Report [facility] [place] [facility] [address] [place] [address] OFFICE VISIT Date of Service: 10/28/24 0900 MR#: [id number] Acct: [id number] Name: MARTHA FABIAN Rep #: [id number] : 1955 From: Kong Vieira MD Age/Sex: 69/F Location: [facility] Status: Signed HPI Subjective Date of Service 10/28/24 Chief Complaint Wants evaluation for abnormal serum protein. History of Present Illness 69-year-old woman was found to have high IgM level with Slight increase in IgG serum light chains at [facility]. She does not want to go back to [facility] so comes in for further evaluation. She denies pain, fever, weight loss or night sweats. She has been found to have iron deficiency and currently taking oral iron. She had colonoscopy on 09/04/2024 which showed diverticulosis with stool in the colon. [facility] Medical History (Updated 10/31/24 @ 14:50 by [...] story dapagliflozin (more content not included)... Normal [facility] Phosphoruson 10-28-2024 Phosphate [Mass/Vol] 3.4 mg/dL Normal 2.7-4.5 [facility] Comment on above: Performed By: #### L 503.6550, L503.6150 #### [facility] [address] [place], [place], [id number] Platelet countOrdered By: Kanwal Vieira on 10-28-2024 Platelets (Bld) [#/Vol] 300 10*3/uL 150-450 [facility] Potassium measurement (mass/ volume)Ordered By: Kong Vieira on 10-28-2024 Potassium (Unsp spec) [Mass/Vol] 4.5 mmol/L 3.3-5.1 [facility] RBC Auto (Bld) [#/Vol]Ordere d By: Kong Vieira on 10-28-2024 RBC (Bld) [#/Vol] 4.36 10*6/uL 4.2-5.4 [facility] Retic Panelon 10-28-2024 IM RET FRACTION 13.60 Normal 3.00-15.90 [facility] Comment on above: Performed By: #### L 503.6550, L503.6150 #### [facility] [address] [place], [address] RET-HE 33.2 pg Normal 30-35 [facility] Comment on above: Performed By: #### L 503.6550, L503.6150 #### [facility] [address] [place], [address] Retic Count 1.75 High 0.5-1.5 [facility] Comment on above: Performed By: #### L 503.6550, L503.6150 #### [facility] [address] [place], [address] Reticulocyte hemoglobin equi valent (RET-He) measurementOrdered By: Kong Vieira on 10-28-2024 Hemoglobin (Reticulocytes) [Entitic mass] 33.2 pg 30-35 [facility] Reticulocytes Auto (Bld) [#/ Vol]Ordered By: Kong Vieira on 10-28-2024 Reticulocytes/100 RBC (Bld) 1.75 % High 0.5-1.5 [facility] Serum creatinine measurement (mass/volume)Ordered By: Kong Vieira on 10-28-2024 Creatinine [Mass/Vol] 0.96 mg/dL 0.70-1.20 [facility] Comment on above: Previous reported re sult: 0.92 mg/dLEdited by: CELIO on 10/28/24:1215 AMENDED REPORT 10/28/24 1215 CREAT,SERUM previously reported as: 0.92 mg/dL Serum globulin measurementOr dered By: Kong Vieira on 10-28-2024 Globulin (S) [Mass/Vol] 3.1 g/dL 2.2-4.2 [facility] Serum globulin measurement ( mass/volume)Ordered By: Kong Vieira on 10-28-2024 Globulin (S) [Mass/Vol] 3.3 g/dL 2.2-3.9 [facility] Serum glucose measurement (m ass/volume)Ordered By: Kong Vieira on 10-28-2024 Glucose [Mass/Vol] 148 mg/dL High 70-99 [facility] Serum immunoglobulin kappa l ight chains/immunoglobulin lambda light chains mass ratioOrdered By: Kong Vieira on 10-28-2024 Immunoglobulin light chains.kappa/Immunoglobul in light chains.lambda (S) [Mass ratio] 1.03 0.26-1.65 [facility] Comment on above: Performed at: [place] [id number] Director: Han Das PhD, Phone: [phone] Serum or plasma C reactive p rotein measurement (mass/volume)Ordered By: Kong Vieira on 10-28-2024 CRP [Mass/Vol] mg/L 0.0-3.0 [facility] Serum or plasma IgA measurem ent (mass/volume)Ordered By: Kong Vieira on 10-28-2024 IgA [Mass/Vol] 176 mg/dL 87-352 [facility] IgA [Mass/Vol] 178 mg/dL 87-352 [facility] Serum or plasma IgG measurem ent (mass/volume)Ordered By: Kong Vieira on 10-28-2024 IgG [Mass/Vol] 789 mg/dL 586-1602 [facility] IgG [Mass/Vol] 772 mg/dL 586-1602 [facility] Serum or plasma alanine zhang otransferase (ALT) measurementOrdered By: Kong Vieira on 10-28-2024 ALT [Catalytic activity/Vol] 18 U/L <35 [facility] Serum or plasma albumin charlotte urement (mass/volume)Ordered By: Kong Vieira on 10-28-2024 Albumin [Mass/Vol] 4.6 g/dL 3.4-4.8 [facility] Serum or plasma albumin/glob ulin mass ratioOrdered By: Kong Vieira on 10-28-2024 Albumin/Globulin [Mass ratio] 1.5 {ratio} 0.9-2.4 [facility] Serum or plasma alkaline diana sphatase measurementOrdered By: Kong Vieira on 10-28-2024 ALP [Catalytic activity/Vol] 41 U/L 35-104 [facility] Comment on above: Previous reported re sult: 42 U/LEdited by: AUTOINS on 10/28/24:1215 AMENDED REPORT 10/28/24 1215 ALK P previously reported as: 42 U/L Serum or plasma alpha 1 glob ulin measurement by electrophoresis (mass/volume)Ordered By: Kong Vieira on 10-28-2024 Alpha 1 globulin Elph [Mass/Vol] 0.2 g/dL 0.0-0.4 [facility] Alpha 1 globulin Elph [Mass/Vol] 0.9 g/dL 0.4-1.0 [facility] Serum or plasma beta globuli n measurement by electrophoresis (mass/volume)Ordered By: Kong Vieira on 10-28-2024 Beta globulin Elph [Mass/Vol] 1.0 g/dL 0.7-1.3 [facility] Serum or plasma calcium charlotte urement (mass/volume)Ordered By: Kong Vieira on 10-28-2024 Calcium [Mass/Vol] 10.0 mg/dL 7.6-11.0 [facility] Comment on above: Previous reported re sult: 10.2 mg/dLEdited by: JESSIES on 10/28/24:1215 AMENDED REPORT 10/28/24 1215 CA previously reported as: 10.2 mg/dL Serum or plasma ferritin mitzy surement (mass/volume)Ordered By: Kong Vieira on 10-28-2024 Ferritin [Mass/Vol] 21 ng/mL Low 22-378 [facility] Serum or plasma gamma globul in measurement by electrophoresis (mass/volume)Ordered By: Kong Vieira on 10-28-2024 Gamma globulin Elph [Mass/Vol] 1.1 g/dL 0.4-1.8 [facility] Serum or plasma immunoelectr ophoresis interpretation (nominal result)Ordered By: Kong Vieira on 10-28-2024 Interpretation IEP [Interp] Comment: . [facility] Comment on above: Presence of monoclon al protein is unclear at this time. Suggestrepeat in 3 to 6 months if clinically indicated. Serum or plasma immunoglobul in kappa light chains measurement (mass/volume)Ordered By: Kong Vieira on 10-28-2024 Immunoglobulin light chains.kappa [Mass/Vol] 30.9 mg/L High 3.3-19.4 [facility] Serum or plasma iron saturat ion measurement (mass fraction)Ordered By: Kong Vieira on 10-28-2024 Iron saturation [Mass fraction] 11.8 % Low 13-59 [facility] Comment on above: Previous reported re sult: 12.0 %Edited by: CELIO on 10/28/24:1218 AMENDED REPORT 10/28/24 1218 IRON SATURATION previously reported as: 12.0 L % Serum or plasma protein charlotte urement (mass/volume)Ordered By: Kong Vieira on 10-28-2024 Protein [Mass/Vol] 7.4 g/dL 6.0-8.5 [facility] Serum or plasma urea nitroge n measurement (mass/volume)Ordered By: Kong Vieira on 10-28-2024 Urea nitrogen [Mass/Vol] 19 mg/dL 4-19 [facility] Serum or plasma uric acid me asurement (mass/volume)Ordered By: Kong Vieira on 10-28-2024 Urate [Mass/Vol] 3.8 mg/dL 2.6-6.0 [facility] Comment on above: The drugs N-Acetylcy steine and Metamizole may falsely depress this assay. Serum tissue transglutaminas e (tTG) IgA antibody assay (units/volume)Ordered By: Kong Vieira on 10-28-2024 tTG IgA Qn (S) <2 U/mL 0-3 [facility] Comment on above: Negative 0 - 3 Weak Positive 4 - 10 Positive >10 Tissue Transglutaminase (tTG) has been identified as the endomysial antigen. Studies have demonstr- ated that endomysial IgA antibodies have over 99% specificity for gluten sensitive enteropathy. Sodium levelOrdered By: Chaim Vieira on 10-28-2024 Sodium [Moles/Vol] 140 mmol/L 133-145 [facility] Total proteinOrdered By: Temo Vieira on 10-28-2024 Protein [Mass/Vol] 7.7 g/dL 5.9-8.4 [facility] Uric Acidon 10-28-2024 URIC 3.8 mg/dL Normal 2.6-6.0 [facility] Comment on above: Result Comment: The drugs N-Acetylcysteine and Metamizole may falsely depress this assay. Performed By: #### L 503.6550, L503.6150 #### [facility] [address] [place], [address] Vitamin B12on 10-28-2024 Cobalamin (Vitamin B12) [Mass/Vol] 622 pg/mL Normal 180-914 [facility] Comment on above: Performed By: #### L 503.6550, L503.6150 #### [facility] [address] [place], [address] Vitamin B12 ser/plasOrdered By: Kong Vieira on 10-28-2024 Cobalamin (Vitamin B12) [Mass/Vol] 622 pg/mL 180-914 [facility] White blood cell (WBC) count Ordered By: Kong Vieira on 10-28-2024 WBC (Bld) [#/Vol] 9.5 10*3/uL 4.4-11.0 [facility] Hips B/L min 2 views w/ Pelv jennifer 10-25-2024 Hips B/L min 2 views w/ Pelvis [facility] [address] [address] Hips B/L min 2 views w/ Pelvis MR#: [id number] Acct: [id number] Name: MARTHA FABIAN Rep #: [id number] : 1955 F 69 From: Jaydon Zarate MD PCP: Dr. Scott Steele MD Status: REG CLI Study: Hips B/L min 2 views w/ Pelvis Date of Exam: 0 10/25/24 Exam# [id number] Ordering Dr: Scott Steele MD EXAM: XR [...] with suggestion of avascular necrosis. Reading Location: [facility] CC: Dr. Scott Steele MD Product Support Engineer: Signed Normal [facility] Lumbar Spine 2 or 3 Viewson 10-25-2024 Lumbar Spine 2 or 3 Views [facility] Imaging Services [address] [place] [address] Lumbar Spine 2 or 3 Views MR#: [id number] Acct: [id number] Name: MARTHA FABIAN Rep #: [id number] : 1955 F 69 From: Jaydon Zarate MD PCP: Dr. Scott Steele MD Status: REG CLI Study: Lumbar Spine 2 or 3 Views Date of Exam: Exam# [id number] Ordering Dr: Scott Steele MD EXAM: XR [...] IMPRESSION: Degenerative changes as above. Reading Location: [facility] CC: Dr. Scott Steele MD Product Support Engineer: Signed Normal [facility] Vitamin D 1,25-Dihydroxyon 0 10-12-2024 VIT D 1,25 DIHY 49.8 pg/mL Normal 24.8-81.5 [facility] Comment on above: Result Comment: Perf ormed at: - [facility] [address] [id number] [employer] Worker: Melissa Benavides MD, Phone: [phone] Performed By: #### L 6040.2544, I602.4419, L501.9985, L500.4100, L503.6550, L503.0106, L503.6030, L500.4050 ####[facility] [address] [place], [place], [id number] Anion gap in Serum or Plasma Ordered By: Scott Steele on 10-09-2024 Anion gap [Moles/Vol] 14 mmol/L 5- [facility] BUN/creatinine ratioOrdered By: Scott Steele on 10-09-2024 Urea nitrogen/Creatinine [Mass ratio] 19.5 mg/mg 10- [facility] Bilirubin, totalOrdered By: Scott Steele on 10-09-2024 Bilirubin [Mass/Vol] 0.37 mg/dL 0.00-1.30 [facility] Calculated very low density lipoprotein (VLDL) cholesterol measurementOrdered By: Scott Steele on 10-09-2024 Calculated very low density lipoprotein (VLDL) cholesterol measurement 21 mg/dL [facility] Carbon dioxide, total [Moles /volume] in Central venous bloodOrdered By: Scott Steele on 10-09-2024 CO2 [Moles/Vol] 25.7 mmol/L 21.0-32.0 [facility] Chloride assayOrdered By: Kanwal Stelee on 10-09-2024 Chloride [Moles/Vol] 102 mmol/L 98-108 [facility] Comprehensive Metabolic Prof ilon 10-09-2024 Albumin [Mass/Vol] 4.9 g/dL High 3.4-4.8 [facility] Comment on above: Order Comment: DARRYL Performed By: #### L 3300.0960, L502.0250, L501.9985, L500.4100, L503.6550, L503.0106, L503.6030, L500.4050 ####[facility] [address] [place], [place], [id number] Albumin/Globulin [Mass ratio] 1.4 {ratio} Normal 0.9-2.4 [facility] Comment on above: Order Comment: DARRYL Performed By: #### L 3300.0960, L502.0250, L501.9985, L500.4100, L503.6550, L503.0106, L503.6030, L500.4050 ####[facility] [address] [place], [address] ALK PHOS 42 U/L Normal 35-104 [facility] Comment on above: Order Comment: DARRYL Performed By: #### L 3300.0960, L502.0250, L501.9985, L500.4100, L503.6550, L503.0106, L503.6030, L500.4050 ####[facility] [address] [place], [place], [id number] ALT [Catalytic activity/Vol] 18 U/L Normal <=34 [facility] Comment on above: Order Comment: DARRYL Performed By: #### L 3300.0960, L502.0250, L501.9985, L500.4100, L503.6550, L503.0106, L503.6030, L500.4050 ####[facility] [address] [place], [place], [id number] AST [Catalytic activity/Vol] 23 U/L Normal <=31 [facility] Comment on above: Order Comment: DARRYL Performed By: #### L 3300.0960, L502.0250, L501.9985, L500.4100, L503.6550, L503.0106, L503.6030, L500.4050 ####[facility] [address] [place], [address] Bilirubin [Mass/Vol] 0.37 mg/dL Normal 0.00-1.30 [facility] Comment on above: Order Comment: DARRYL Performed By: #### L 3300.0960, L502.0250, L501.9985, L500.4100, L503.6550, L503.0106, L503.6030, L500.4050 ####[facility] [address] [place], [address] BUN/CRE 19.5 RATIO Normal 10-20 [facility] Comment on above: Order Comment: DARRYL Performed By: #### L 3300.0960, L502.0250, L501.9985, L500.4100, L503.6550, L503.0106, L503.6030, L500.4050 ####[facility] [address] [place], [address] Calcium [Mass/Vol] 10.2 mg/dL Normal 7.6-11.0 [facility] Comment on above: Order Comment: DARRYL Performed By: #### L 3300.0960, L502.0250, L501.9985, L500.4100, L503.6550, L503.0106, L503.6030, L500.4050 ####[facility] [address] [place], [address] Chloride [Moles/Vol] 102 mmol/L Normal 98-108 [facility] Comment on above: Order Comment: DARRYL Performed By: #### L 3300.0960, L502.0250, L501.9985, L500.4100, L503.6550, L503.0106, L503.6030, L500.4050 ####[facility] [address] [place], [address] CO2 [Moles/Vol] 25.7 mmol/L Normal 21.0-32.0 [facility] Comment on above: Order Comment: DARRYL Performed By: #### L 3300.0960, L502.0250, L501.9985, L500.4100, L503.6550, L503.0106, L503.6030, L500.4050 ####[facility] [address] [place], [address] Creatinine [Mass/Vol] 0.86 mg/dL Normal 0.70-1.20 [facility] Comment on above: Order Comment: DARRYL Performed By: #### L 3300.0960, L502.0250, L501.9985, L500.4100, L503.6550, L503.0106, L503.6030, L500.4050 ####[facility] [address] [place], [address] GAP 14 Normal 5-15 [facility] Comment on above: Order Comment: DARRYL Performed By: #### L 3300.0960, L502.0250, L501.9985, L500.4100, L503.6550, L503.0106, L503.6030, L500.4050 ####[facility] [address] [place], [address] GFR/1.73 sq M.predicted among non-blacks MDRD (S/P/Bld) [Vol rate/Area] 74 mL/min/{1.73_m2} Normal >60 [facility] Comment on above: Order Comment: DARRYL Result Comment: mL/m in/1.73m2 CKD-EPI Creatinine Equation (2020) Performed By: #### L 3300.0960, L502.0250, L501.9985, L500.4100, L503.6550, L503.0106, L503.6030, L500.4050 ####[facility] [address] [place], [address] Globulin (S) [Mass/Vol] 3.4 g/dL Normal 2.2-4.2 [facility] Comment on above: Order Comment: DARRYL Performed By: #### L 3300.0960, L502.0250, L501.9985, L500.4100, L503.6550, L503.0106, L503.6030, L500.4050 ####[facility] [address] [place], [place], [phone](466) Glucose [Mass/Vol] 99 mg/dL Normal 70-99 [facility] Comment on above: Order Comment: DARRYL Performed By: #### L 3300.0960, L502.0250, L501.9985, L500.4100, L503.6550, L503.0106, L503.6030, L500.4050 ####[facility] [address] [place], [address] Potassium [Moles/Vol] 4.3 mmol/L Normal 3.3-5.1 [facility] Comment on above: Order Comment: DARRYL Performed By: #### L 3300.0960, L502.0250, L501.9985, L500.4100, L503.6550, L503.0106, L503.6030, L500.4050 ####[facility] [address] [place], [address] Sodium [Moles/Vol] 141 mmol/L Normal 133-145 [facility] Comment on above: Order Comment: DARRYL Performed By: #### L 3300.0960, L502.0250, L501.9985, L500.4100, L503.6550, L503.0106, L503.6030, L500.4050 ####[facility] [address] [place], [address] T PROT 8.3 g/dL Normal 5.9-8.4 [facility] Comment on above: Order Comment: DARRYL Performed By: #### L 3300.0960, L502.0250, L501.9985, L500.4100, L503.6550, L503.0106, L503.6030, L500.4050 ####[facility] [address] [place], [address] Urea nitrogen [Mass/Vol] 17 mg/dL Normal 4-19 [facility] Comment on above: Order Comment: DARRYL Performed By: #### L 3300.0960, L502.0250, L501.9985, L500.4100, L503.6550, L503.0106, L503.6030, L500.4050 ####[facility] [address] [place], [address] Ferritinon 10-09-2024 Ferritin [Mass/Vol] 20 ng/mL Low 22-378 [facility] Comment on above: Performed By: #### L 3300.0960, L502.0250, L501.9985, L500.4100, L503.6550, L503.0106, L503.6030, L500.4050 ####[facility] [address] [place], [address] Glomerular filtration rate ( GFR) estimation/1.73 sq m using serum, plasma, or whole bOrdered By: Scott Steele on 10-09-2024 GFR/1.73 sq M.predicted among non-blacks MDRD (S/P/Bld) [Vol rate/Area] 74 mL/min/{1.73_m2} >60 [facility] Comment on above: mL/min/1.73m2 CKD-EP I Creatinine Equation (2020) Hemoglobin A1con 10-09-2024 HbA1c (Bld) [Mass fraction] 6.8 % High <=5.6 [facility] Comment on above: Result Comment: Norm al < 5.7 % Prediabetic 5.7 - 6.4 % Diabetic >or= 6.5 % Please note range changes. Performed By: #### L 3300.0960, L502.0250, L501.9985, L500.4100, L503.6550, L503.0106, L503.6030, L500.4050 #### [facility] [address] [place], [address] Hemoglobin A1c percentageOrd ered By: Scott Steele on 10-09-2024 HbA1c (Bld) [Mass fraction] 6.8 % High <5.7 [facility] Comment on above: Normal < 5.7 % Predi abetic 5.7 - 6.4 % Diabetic >or= 6.5 % Please note range changes. Iron measurement (mass/mass) Ordered By: Scott Steele on 10-09-2024 Iron (Unsp spec) [Mass/Mass] 47 ug/dL Low 50-170 [facility] Iron+Iron Binding Capacityon 10-09-2024 Iron [Mass/Vol] 47 ug/dL Low 50-170 [facility] Comment on above: Order Comment: DARRYL Performed By: #### L 3300.0960, L502.0250, L501.9985, L500.4100, L503.6550, L503.0106, L503.6030, L500.4050 ####[facility] [address] [place], [address] IRON SATURATION 14.0 Normal 13-59 [facility] Comment on above: Order Comment: DARRYL Performed By: #### L 3300.0960, L502.0250, L501.9985, L500.4100, L503.6550, L503.0106, L503.6030, L500.4050 ####[facility] [address] [place], [address] TIBC 335 ug/dL Normal 250-450 [facility] Comment on above: Order Comment: DARRYL Performed By: #### L 3300.0960, L502.0250, L501.9985, L500.4100, L503.6550, L503.0106, L503.6030, L500.4050 ####[facility] [address] [place], [address] UIBC 288 ug/dL Normal 228-428 [facility] Comment on above: Order Comment: DARRYL Performed By: #### L 3300.0960, L502.0250, L501.9985, L500.4100, L503.6550, L503.0106, L503.6030, L500.4050 ####[facility] [address] [place], [place], [id number] LDL calc ser/plasOrdered By: Scott Steele on 10-09-2024 Cholesterol in LDL [Mass/Vol] 72 mg/dL [facility] Comment on above: Dhmfodrktl=662-076 m g/dL & Higher Lpqo=402 mg/dL or greater Laboratory - Chemistry and C hemistry - challengeOrdered By: Scott Steele on 10-09-2024 AST [Catalytic activity/Vol] 23 U/L <32 [facility] Lipid Profileon 10-09-2024 CHOL:HDL 2.45 Normal [facility] Comment on above: Performed By: #### L 3300.0960, L502.0250, L501.9985, L500.4100, L503.6550, L503.0106, L503.6030, L500.4050 ####[facility] [address] [place], [address](313) Cholesterol [Mass/Vol] 158 mg/dL Normal <=200 [facility] Comment on above: Result Comment: Chol esterol level, Desirable <200 mg/dL Borderline high cholesterol 200-239 mg/dL High cholesterol >=240 mg/dL Recommendations of the NCEP Adult Treatment Panel for the following risk-cutoff thresholds for the [place] population. Performed By: #### L 3300.0960, L502.0250, L501.9985, L500.4100, L503.6550, L503.0106, L503.6030, L500.4050 ####[facility] [address] [place], [place], [phone] Cholesterol in HDL [Mass/Vol] 64 mg/dL Normal [facility] Comment on above: Result Comment: Mehreen onal Cholesterol Education Program (NCEP) guidelines: <40 mg/dL: Low HDL-cholesterol (major risk factor for CHD) >= 60 mg/dL: High HDL-cholesterol (negative risk factor for CHD) HDL-cholesterol is affected by a number of factors, e.g. smoking, exercise, hormones, sex and age. Performed By: #### L 3300.0960, L502.0250, L501.9985, L500.4100, L503.6550, L503.0106, L503.6030, L500.4050 ####[facility] [address] [place], [address] Cholesterol in LDL [Mass/Vol] 72 mg/dL Normal [facility] Comment on above: Result Comment: Bord rcujie=157-224 mg/dL Higher Ubif=035 mg/dL or greater Performed By: #### L 3300.0960, L502.0250, L501.9985, L500.4100, L503.6550, L503.0106, L503.6030, L500.4050 ####[facility] [address] [place], [address] Cholesterol in VLDL [Mass/Vol] 21 mg/dL Normal 5-40 [facility] Comment on above: Performed By: #### L 3300.0960, L502.0250, L501.9985, L500.4100, L503.6550, L503.0106, L503.6030, L500.4050 ####[facility] [address] [place], [address] Triglyceride [Mass/Vol] 106 mg/dL Normal [facility] Comment on above: Result Comment: The drugs N-Acetylcysteine and Metamizole may falsely depress this assay. Normal range: <150 mg/dL Borderline High: 150-199 mg/dL High: 200-499 mg/dL Very High: >500 mg/dL Performed By: #### L 3300.0960, L502.0250, L501.9985, L500.4100, L503.6550, L503.0106, L503.6030, L500.4050 ####[facility] [address] [place], [address] Microalb:Creat Ratio,Random URon 10-09-2024 Creatinine [Mass/Vol] 33.70 mg/dL Normal 28.00-217.00 [facility] Comment on above: Performed By: #### L 3300.0960, L502.0250, L501.9985, L500.4100, L503.6550, L503.0106, L503.6030, L500.4050 #### [facility] [address] [place], [address] MALB:CREAT UNABLE TO CALCULATE Normal [facility] Comment on above: Performed By: #### L 3300.0960, L502.0250, L501.9985, L500.4100, L503.6550, L503.0106, L503.6030, L500.4050 #### [facility] [address] [place], [address] MICROALBUMIN,UR < 12.0 Normal NO RANGE EST. [facility] Comment on above: Performed By: #### L 3300.0960, L502.0250, L501.9985, L500.4100, L503.6550, L503.0106, L503.6030, L500.4050 #### [facility] [address] [facility] [place], [address] Microalbumin/creat ratio urO rdered By: Scott Steele on 10-09-2024 Urine microalbumin/creatinine ratio measurement UNABLE TO CALCULATE mg/g CRE [facility] No Panel InformationOrdered By: Scott Steele on 10-09-2024 Unsaturated Iron Binding Capacity 288 ug/dL 228-428 [facility] Potassium measurement (mass/ volume)Ordered By: Scott Steele on 10-09-2024 Potassium (Unsp spec) [Mass/Vol] 4.3 mmol/L 3.3-5.1 [facility] Random urine creatinine charlotte urement (mass/volume)Ordered By: Scott Steele on 10-09-2024 Creatinine Unsp time (U) [Mass/Vol] 33.70 mg/dL 28.00-217.00 [facility] Screening total cholesterol/ high density lipoprotein (HDL) cholesterol ratioOrdered By: Scott Steele on 10-09-2024 Cholesterol.total/Cholest anila in HDL [Mass ratio] 2.45 {ratio} [facility] Serum creatinine measurement (mass/volume)Ordered By: Scott Steele on 10-09-2024 Creatinine [Mass/Vol] 0.86 mg/dL 0.70-1.20 [facility] Serum globulin measurementOr dered By: Scott Steele on 10-09-2024 Globulin (S) [Mass/Vol] 3.4 g/dL 2.2-4.2 [facility] Serum glucose measurement (m ass/volume)Ordered By: Scott Steele on 10-09-2024 Glucose [Mass/Vol] 99 mg/dL 70-99 [facility] Serum or plasma alanine zhang otransferase (ALT) measurementOrdered By: Scott Steele on 10-09-2024 ALT [Catalytic activity/Vol] 18 U/L <35 [facility] Serum or plasma albumin charlotte urement (mass/volume)Ordered By: Scott Steele on 10-09-2024 Albumin [Mass/Vol] 4.9 g/dL High 3.4-4.8 [facility] Serum or plasma albumin/glob ulin mass ratioOrdered By: Scott Steele on 10-09-2024 Albumin/Globulin [Mass ratio] 1.4 {ratio} 0.9-2.4 [facility] Serum or plasma alkaline diana sphatase measurementOrdered By: Scott Steele on 10-09-2024 ALP [Catalytic activity/Vol] 42 U/L 35-104 [facility] Serum or plasma calcitriol m easurement (mass/volume)Ordered By: Scott Steele on 10-09-2024 1,25-dihydroxyvitamin D3 [Mass/Vol] 49.8 pg/mL 24.8-81.5 [facility] Comment on above: Performed at: [address] [id number] Director: Melissa Benavides MD, Phone: [phone] Serum or plasma calcium charlotte urement (mass/volume)Ordered By: Scott Steele on 10-09-2024 Calcium [Mass/Vol] 10.2 mg/dL 7.6-11.0 [facility] Serum or plasma cholesterol in HDL measurement (mass/volume)Ordered By: Scott Steele on 10-09-2024 Cholesterol in HDL [Mass/Vol] 64 mg/dL >40 [facility] Comment on above: National Cholesterol Education Program (NCEP) guidelines:<40 mg/dL: Low HDL-cholesterol (major risk factor for CHD)>= 60 mg/dL: High HDL-cholesterol (negative risk factor for CHD)HDL-cholesterol is affected by a number of factors, e.g. smoking, exercise, hormones, sex and age. Serum or plasma cholesterol measurement (mass/volume)Ordered By: Scott Steele on 10-09-2024 Cholesterol [Mass/Vol] 158 mg/dL <201 [facility] Comment on above: Cholesterol level, D esirable <200 mg/dLBorderline high cholesterol 200-239 mg/dLHigh cholesterol >=240 mg/dLRecommendations of the NCEP Adult Treatment Panel for the following risk-cutoff thresholds for the [place] population. Serum or plasma ferritin mitzy surement (mass/volume)Ordered By: Scott Steele on 10-09-2024 Ferritin [Mass/Vol] 20 ng/mL Low 22-378 [facility] Serum or plasma iron saturat ion measurement (mass fraction)Ordered By: Scott Steele on 10-09-2024 Iron saturation [Mass fraction] 14.0 % 13-59 [facility] Serum or plasma urea nitroge n measurement (mass/volume)Ordered By: Scott Steele on 10-09-2024 Urea nitrogen [Mass/Vol] 17 mg/dL 4-19 [facility] Sodium levelOrdered By: Scott Steele on 10-09-2024 Sodium [Moles/Vol] 141 mmol/L 133-145 [facility] Total proteinOrdered By: Syed Steele on 10-09-2024 Protein [Mass/Vol] 8.3 g/dL 5.9-8.4 [facility] Triglycerides measurementOrd ered By: Scott Steele on 10-09-2024 Triglyceride [Mass/Vol] 106 mg/dL <199 [facility] Comment on above: The drugs N-Acetylcy steine and Metamizole may falsely depress this assay. Normal range: <150 mg/dLBorderline High: 150-199 mg/dLHigh: 200-499 mg/dLVery High: >500 mg/dL Urine albumin measurement [facility] detection limit of 20 mg/L or less (mass/volume)Ordered By: Scott Steele on 10-09-2024 Albumin DL <= 20 mg/L (U) [Mass/Vol] < 12.0 mg/L NO RANGE EST. [facility] Vitamin B12on 10-09-2024 Cobalamin (Vitamin B12) [Mass/Vol] 561 pg/mL Normal 180-914 [facility] Comment on above: Performed By: #### L 3300.0960, L502.0250, L501.9985, L500.4100, L503.6550, L503.0106, L503.6030, L500.4050 ####[facility] [address] [place], [place], [id number] Vitamin B12 ser/plasOrdered By: Scott Steele on 10-09-2024 Cobalamin (Vitamin B12) [Mass/Vol] 561 pg/mL 180-914 [facility] Basic metabolic 2000 panelon 10-04-2024 Anion gap [Moles/Vol] 14 mmol/L Normal 8-15 [facility] Comment on above: Order Comment: Speci men Type: BLOOD SPECIMEN Ordering Facility: [facility] Address: [address] [place] [address] Performed By: #### 2 4321-2 #### [facility] CLIA [id number] [address] [place] [address] [place] Calcium [Mass/Vol] 9.7 mg/dL Normal 8.5-10.2 [facility] Comment on above: Order Comment: Speci men Type: BLOOD SPECIMEN Ordering Facility: [facility] Address: [facility] [place] [address] Performed By: #### 2 4321-2 #### [facility] CLIA [id number] [address] [place] [address] [place] Chloride [Moles/Vol] 101 mmol/L Normal 98-107 [facility] Comment on above: Order Comment: Speci men Type: BLOOD SPECIMEN Ordering Facility: [facility] Address: [address] [place], [place] [address] Performed By: #### 2 4321-2 #### [facility] [id number] [address] [place] [address] [place] CO2 [Moles/Vol] 23 mmol/L Normal 22-30 [facility] Comment on above: Order Comment: Speci men Type: BLOOD SPECIMEN Ordering Facility: [facility] Address: [address] [place] [address] Performed By: #### 2 4321-2 #### [facility] [id number] [address] [place] [address] [place] Creatinine [Mass/Vol] 0.90 mg/dL Normal 0.58-0.96 [facility] Comment on above: Order Comment: Speci men Type: BLOOD SPECIMEN Ordering Facility: [facility] Address: [address] [place] [address] Performed By: #### 2 4321-2 #### [facility] [id number] [address] [place] [address] Creatinine and Glomerular filtration rate.predicted panel (S/P/Bld) 70 mL/min/1.73m??? Normal >=60 [facility] Comment on above: Order Comment: Speci men Type: BLOOD SPECIMEN Ordering Facility: [facility] Address: [address] [place] [address] Result Comment: Keke mated Glomerular Filtration Rate [...] GFR. Performed By: #### 2 4321-2 #### [facility] [id number] [address] [place] [address] [place] Glucose [Mass/Vol] 111 mg/dL High 74-99 [facility] Comment on above: Order Comment: Sulma ho Type: BLOOD SPECIMEN Ordering Facility: [facility] Address: [address] [place], [place] [id number] Result Comment: The [place] Diabetes Association (ADA) provides guidance for cutoff [...] Standards of Medical Care in Diabetes 2016, [place] [employer] Association. Diabetes Care. 2016.39(Suppl 1). Performed By: #### 2 4321-2 #### [facility] [id number] [address] [place] [address] [place] Potassium [Moles/Vol] 4.2 mmol/L Normal 3.7-5.1 [facility] Comment on above: Order Comment: Sulma ho Type: BLOOD SPECIMEN Ordering Facility: [facility] Address: [address] [place] [address] Performed By: #### 2 4321-2 #### [facility] [id number] [address] [place] [address] [place] Sodium [Moles/Vol] 138 mmol/L Normal 136-144 [facility] Comment on above: Order Comment: Sulma ho Type: BLOOD SPECIMEN Ordering Facility: [facility] Address: [address] [place] [address] Performed By: #### 2 4321-2 #### [facility] CLIA [id number] [address] [place] [address] [place] Urea nitrogen [Mass/Vol] 17 mg/dL Normal 7-21 [facility] Comment on above: Order Comment: Speci men Type: BLOOD SPECIMEN Ordering Facility: [facility] Address: [address] [place] [address] Performed By: #### 2 4321-2 #### [facility] CLIA [id number] [address] [place] [address] [place] CBC W Auto Differential pane l (Bld)on 10-04-2024 Basophils (Bld) [#/Vol] 0.06 10*3/uL Normal <0.11 [facility] Comment on above: Order Comment: Speci men Type: URINE SPECIMEN Ordering Facility: [facility] Address: [address] [place] [address] Performed By: #### L [id number] #### [facility] CLIA [id number] [address] [place] [address] [place] Basophils/100 WBC (Bld) 0.9 % Normal [facility] Comment on above: Order Comment: Speci men Type: URINE SPECIMEN Ordering Facility: [facility] Address: [address] [place] [address] Performed By: #### L [id number] #### [facility] CLIA [id number] [address] [place] [address] [place] Differential cell count method Nom (Bld) Auto Normal [facility] Comment on above: Order Comment: Speci men Type: URINE SPECIMEN Ordering Facility: [facility] Address: [address] [place] [address] Performed By: #### L [id number] #### [facility] CLIA [id number] [address] [place] [address] [place] Eosinophils (Bld) [#/Vol] 0.09 10*3/uL Normal <0.46 [facility] Comment on above: Order Comment: Speci men Type: URINE SPECIMEN Ordering Facility: [facility] Address: [address] [place] [address] Performed By: #### L [id number] #### [facility] CLIA [id number] [address] [place] [address] [place] Eosinophils/100 WBC (Bld) 1.4 % Normal [facility] Comment on above: Order Comment: Speci men Type: URINE SPECIMEN Ordering Facility: [facility] Address: [address] [place] [address] Performed By: #### L [id number] #### [facility] CLIA [id number] [address] [place] [address] [place] Erythrocyte distribution width (RBC) [Ratio] 14.4 % Normal 11.5-15.0 [facility] Comment on above: Order Comment: Speci men Type: URINE SPECIMEN Ordering Facility: [facility] Address: [address] [place] [address] Performed By: #### L [id number] #### [facility] CLIA [id number] [address] [place] [address] [place] Hematocrit (Bld) [Volume fraction] 37.7 % Normal 36.0-46.0 [facility] Comment on above: Order Comment: Speci men Type: URINE SPECIMEN Ordering Facility: [facility] Address: [address] [place] [address] Performed By: #### L [id number] #### [facility] CLIA [id number] [address] [place] [address] [place] Hemoglobin (Bld) [Mass/Vol] 12.3 g/dL Normal 11.5-15.5 [facility] Comment on above: Order Comment: Speci men Type: URINE SPECIMEN Ordering Facility: [facility] Address: [address] [place] [address] Performed By: #### L [id number] #### [facility] CLIA [id number] [address] [place] [address] [place] Immature granulocytes (Bld) [#/Vol] 0.03 10*3/uL Normal <0.10 [facility] Comment on above: Order Comment: Speci men Type: URINE SPECIMEN Ordering Facility: [facility] Address: [address] [place] [address] Performed By: #### L [id number] #### [facility] CLIA [id number] [address] [place] [address] [place] Immature granulocytes/100 WBC (Bld) 0.5 % Normal [facility] Comment on above: Order Comment: Speci men Type: URINE SPECIMEN Ordering Facility: [facility] Address: [address] [place] [address] Performed By: #### L [id number] #### [facility] CLIA [id number] [address] [place] [address] [place] Lymphocytes (Bld) [#/Vol] 2.31 10*3/uL Normal 1.00-4.[address] [facility] Comment on above: Order Comment: Speci men Type: URINE SPECIMEN Ordering Facility: [facility] Address: [address] [place] [address] Performed By: #### L [id number] #### [facility] CLIA [id number] [address] [place] [address] [place] Lymphocytes/100 WBC (Bld) 34.7 % Normal [facility] Comment on above: Order Comment: Speci men Type: URINE SPECIMEN Ordering Facility: [facility] Address: [address] [place] [address] Performed By: #### L [id number] #### [facility] CLIA [id number] [address] [place] [address] [place] MCH (RBC) [Entitic mass] 28.7 pg Normal 26.0-34.0 [facility] Comment on above: Order Comment: Speci men Type: URINE SPECIMEN Ordering Facility: [facility] Address: [address] [place] [address] Performed By: #### L [id number] #### [facility] CLIA [id number] [address] [place] [address] [place] MCHC (RBC) [Mass/Vol] 32.6 g/dL Normal 30.5-36.0 [facility] Comment on above: Order Comment: Speci men Type: URINE SPECIMEN Ordering Facility: [facility] Address: [address] [place] [address] Performed By: #### L [id number] #### [facility] CLIA [id number] [address] [place] [address] [place] MCV (RBC) [Entitic vol] 88.1 fL Normal 80.0-100.0 [facility] Comment on above: Order Comment: Speci men Type: URINE SPECIMEN Ordering Facility: [facility] Address: [address] [place] [address] Performed By: #### L [id number] #### [facility] CLIA [id number] [address] [place] [address] [place] Monocytes (Bld) [#/Vol] 0.56 10*3/uL Normal <0.87 [facility] Comment on above: Order Comment: Speci men Type: URINE SPECIMEN Ordering Facility: [facility] Address: [address] [place] [address] Performed By: #### L [id number] #### [facility] CLIA [id number] [address] [place] [address] [place] Monocytes/100 WBC (Bld) 8.4 % Normal [facility] Comment on above: Order Comment: Speci men Type: URINE SPECIMEN Ordering Facility: [facility] Address: [address] [place] [address] Performed By: #### L [id number] #### [facility] CLIA [id number] [address] [place] [address] [place] Neutrophils (Bld) [#/Vol] 3.60 10*3/uL Normal 1.45-7.[address] [facility] Comment on above: Order Comment: Speci men Type: URINE SPECIMEN Ordering Facility: [facility] Address: [address] [place] [address] Performed By: #### L [id number] #### [facility] CLIA [id number] [address] [place] [address] [place] Neutrophils/100 WBC (Bld) 54.1 % Normal [facility] Comment on above: Order Comment: Speci men Type: URINE SPECIMEN Ordering Facility: [facility] Address: [address] [place] [address] Performed By: #### L [id number] #### [facility] CLIA [id number] [address] [place] [address] [place] Nucleated RBC (Bld) [#/Vol] 10*3/uL Normal <0.01 [facility] Comment on above: Order Comment: Speci men Type: URINE SPECIMEN Ordering Facility: [facility] Address: [address] [place] [address] Performed By: #### L [id number] #### [facility] CLIA [id number] [address] [place] [address] [place] Nucleated RBC/100 WBC (Bld) [Ratio] 0.0 /[address] [facility] Comment on above: Order Comment: Speci men Type: URINE SPECIMEN Ordering Facility: [facility] Address: [address] [place] [address] Performed By: #### L [id number] #### [facility] CLIA [id number] [address] [place] [address] [place] Platelet mean volume (Bld) [Entitic vol] 10.6 fL Normal 9.0-12.7 [facility] Comment on above: Order Comment: Speci men Type: URINE SPECIMEN Ordering Facility: [facility] Address: [address] [place] [address] Performed By: #### L [id number] #### [facility] CLIA [id number] [address] [place] [address] [place] Platelets (Bld) [#/Vol] 253 10*3/uL Normal 150-400 [facility] Comment on above: Order Comment: Speci men Type: URINE SPECIMEN Ordering Facility: [facility] Address: [address] [place] [address] Performed By: #### L [id number] #### [facility] CLIA [id number] [address] [place] [address] [place] RBC (Bld) [#/Vol] 4.28 10*6/uL Normal 3.90-5.20 [facility] Comment on above: Order Comment: Speci men Type: URINE SPECIMEN Ordering Facility: [facility] Address: [address] [place] [address] Performed By: #### L [id number] #### [facility] CLIA [id number] [address] [place] [address] [place] WBC (Bld) [#/Vol] 6.65 10*3/uL Normal 3.70-11.00 [facility] Comment on above: Order Comment: Speci men Type: URINE SPECIMEN Ordering Facility: [facility] Address: [address] [place] [address] Performed By: #### L [id number] #### [facility] CLIA [id number] [address] [place] [address] [place] IMMUNOFIXATION SCREEN, SERUM [...] monoclonal gammopathy. Clinical correlation is necessary. Normal [facility] Comment on above: Order Comment: Sulma ho Type: BLOOD SPECIMEN Ordering Facility: [facility] Address: [address] [place] [address] Performed By: #### I FESC #### [facility] CLIA [id number] [address] [place] [address] [place] MPA RESULT A poorly defined reg ion of restricted mobility is present that may represent an M protein. Abnormal No M protein is identified. [facility] Comment on above: Order Comment: Sulma ho Type: BLOOD SPECIMEN Ordering Facility: [facility] Address: [address] [place] [address] Performed By: #### I FESC #### [facility] CLIA [id number] [address] [place] [address] [place] STAFF REVIEW (MPA) Reviewed by Zulma Hugo MD Normal [facility] Comment on above: Order Comment: Sulma ho Type: BLOOD SPECIMEN Ordering Facility: [facility] Address: [address] [place] [address] Performed By: #### I FESC #### [facility] CLIA [id number] [address] [place], [place] [id number] [place] IMMUNOGLOBULINS,IGG,IGA,IGMo n 10-04-2024 IgA [Mass/Vol] 174 mg/dL Normal 70-400 [facility] Comment on above: Order Comment: Sulma ho Type: BLOOD SPECIMEN Ordering Facility: [facility] Address: [address] [place] [address] Performed By: #### S ERIMM #### [facility] CLIA [id number] [address] [place], [place] [id number] [place] IgG [Mass/Vol] 804 mg/dL Normal 700-1600 [facility] Comment on above: Order Comment: Sulma ho Type: BLOOD SPECIMEN Ordering Facility: [facility] Address: [address] [place] [address] Performed By: #### S ERIMM #### [facility] CLIA [id number] [address] [place] [address] [place] IgM [Mass/Vol] 602 mg/dL High 40-230 [facility] Comment on above: Order Comment: Speci men Type: BLOOD SPECIMEN Ordering Facility: [facility] Address: [address] [place] [address] Performed By: #### S ERIMM #### [facility] CLIA [id number] [address] [place] [address] [place] KAPPA/LA,FREE,SERon 2024 Immunoglobulin light chains.kappa.free (S) [Mass/Vol] 37.5 mg/L High 3.3-19.4 [facility] Comment on above: Order Comment: Speci men Type: URINE SPECIMEN Ordering Facility: [facility] Address: [address] [place] [address] Result Comment: Rare ly, increased serum free light chains levels may not be detected or accurately quantified due to prozone phenomenon or in high viscosity samples using this immunoturbidimetric assay. Correlation with other laboratory results and clinical findings is recommended. The Ulmer Free Light Chain was performed using the Binding Site Optilite immunoturbidimetric method. Result obtained with different assay methods or kits cannot be used interchangeably. Performed By: #### L [id number] #### [facility] CLIA [id number] [address] [place] [address] [place] Immunoglobulin light chains.kappa/Immunoglobul in light chains.lambda (S) [Mass ratio] 1.38 Normal 0.26-1.65 [facility] Comment on above: Order Comment: Speci men Type: URINE SPECIMEN Ordering Facility: [facility] Address: [address] [place] [address] Performed By: #### L [id number] #### [facility] CLIA [id number] [address] [place] [address] [place] Immunoglobulin light chains.lambda.free [Mass/Vol] 27.1 mg/L High 5.7-26.3 [facility] Comment on above: Order Comment: Speci men Type: URINE SPECIMEN Ordering Facility: [facility] Address: [address] [place] [address] Result Comment: Rare ly, increased serum free [...] be used interchangeably. Performed By: #### L [id number] #### [facility] CLIA [id number] [address] [place] [address] [place] PROTEIN ELECTROPHORESIS SERU M (P)on 10-04-2024 Albumin [Mass/Vol] 4.59 g/dL Normal 3.43-5.41 [facility] Comment on above: Order Comment: Speci men Type: BLOOD SPECIMEN Ordering Facility: [facility] Address: [address] [place] [address] Performed By: #### L [id number] #### [facility] CLIA [id number] [address] [place] [address] [place] Alpha 1 globulin Elph [Mass/Vol] 0.27 g/dL Normal 0.18-0.43 [facility] Comment on above: Order Comment: Speci men Type: BLOOD SPECIMEN Ordering Facility: [facility] Address: [address] [place] [address] Performed By: #### L [id number] #### [facility] CLIA [id number] [address] [place] [address] [place] Alpha 2 globulin Elph [Mass/Vol] 0.74 g/dL Normal 0.42-0.98 [facility] Comment on above: Order Comment: Speci men Type: BLOOD SPECIMEN Ordering Facility: [facility] Address: [address] [place] [address] Performed By: #### L [id number] #### [facility] CLIA [id number] [address] [place] [address] [place] Beta globulin Elph [Mass/Vol] 0.87 g/dL Normal 0.61-1.17 [facility] Comment on above: Order Comment: Speci men Type: BLOOD SPECIMEN Ordering Facility: [facility] Address: [address] [place] [address] Performed By: #### L [id number] #### [facility] CLIA [id number] [address] [place] [address] [place] Gamma globulin Elph [Mass/Vol] 0.94 g/dL Normal 0.53-1.51 [facility] Comment on above: Order Comment: Speci men Type: BLOOD SPECIMEN Ordering Facility: [facility] Address: [address] [place] [address] Performed By: #### L [id number] #### [facility] CLIA [id number] [address] [place] [address] [place] M-PROTEIN LOCATION Normal [facility] Comment on above: Order Comment: Speci men Type: BLOOD SPECIMEN Ordering Facility: [facility] Address: [address] [place] [address] Result Comment: Not Applicable. Performed By: #### L [id number] #### [facility] CLIA [id number] [address] [place] [address] [place] Protein Fractions [Interp] No definitive M protein is identified on protein electrophoresis. Normal No definitive M protein is identified on protein electrophore sis. [facility] Comment on above: Order Comment: Speci men Type: BLOOD SPECIMEN Ordering Facility: [facility] Address: [address] [place] [address] Performed By: #### L [id number] #### [facility] CLIA [id number] [address] [place] [address] [place] Protein.monoclonal Elph [Mass/Vol] 0.00 g/dL Normal <=0.00 [facility] Comment on above: Order Comment: Speci men Type: BLOOD SPECIMEN Ordering Facility: [facility] Address: [address] [place] [address] Performed By: #### L [id number] #### [facility] CLIA [id number] [address] [place] [address] [place] SPE STAFF REVIEW Reviewed by Zulma Hugo MD [facility] Comment on above: Order Comment: Speci men Type: BLOOD SPECIMEN Ordering Facility: [facility] Address: [address] [place] [address] Performed By: #### L [id number] #### [facility] CLIA [id number] [address] [place] [address] [place] Prot SerPl-mCncon 10-04-2024 Protein [Mass/Vol] 7.4 g/dL Normal 6.3-8.0 [facility] Comment on above: Order Comment: Speci men Type: BLOOD SPECIMEN Ordering Facility: [facility] Address: [address] [place] [address] Performed By: #### 2 885-2 #### [facility] CLIA [id number] [address] [place] [address] [place] Bedside Glucoseon 09-04-2024 FINGERSTICK GLU 117 mg/dL High 74-106 [facility] Comment on above: Result Comment: MARC PENNIE OF PATIENT CARE PER NURSING PROTOCOL Performed By: #### L 501.080 ####[facility] [id number] [place], [address] Colonoscopy Reporton 025 Colonoscopy Report [facility] Medical Records Department [address] [place] [address] Colonoscopy Report MR#: [id number] Acct: [id number] Name: MARTHA FABIAN Rep #: [id number] : 1955 69 From: Karri Banegas DO PCP: Dr. Scott Steele MD Status:REG [facility] Patient Name: Martha Fabian Procedure Date: 09/04/2024 [...] was poor. Procedure Code(s): --- Professional --- [address]5669, 53, Colonoscopy, flexible; diagnostic, including collection of specimen(s) by brushing or washing, when performed (separate procedure) CPT copyright 2021 [employer]. All rights reserved. The codes documented in this report are preliminary and upon creche attendant review may be revised to meet current compliance requirements. Karri Banegas DO 09/04/2024 11:08:30 AM This report has been signed electronically. Number of Addenda: 0 Note Initiated On: 09/04/2024 10:46 AM 09/04/24 1108 Date Karri Banegas DO Cosigner Signature: Date (if indicated) CC: Dr. Scott Steele MD; Karri Banegas DO Date Dictated: 09/04/24 1046 Date Transcribed: Product Support Engineer: DOROTHEA Signed Normal [facility] Glucose measurement at health system deOrdered By: Karri Banegas on 09-04-2024 Bedside Glucose (Misc Panel) 117 mg/dL High 74-106 [facility] Comment on above: MANAGEMENT OF PATIEN T CARE PER NURSING PROTOCOL Glucose [Mass/Vol] 117 mg/dL High 74-106 [facility] Comment on above: MANAGEMENT OF PATIEN T CARE PER NURSING PROTOCOL MR/POSTOP.ANEon 09-04-2024 MR/POSTOP.ANE [facility] Medical Records Department [address] [place] [address] Anesthesia Postop Eval I 09/04/24 1112 MR#: [id number] Acct: [id number] Name: MARTHA FABIAN Rep #: [id number] : 1955 69 From: Tab Interiano PCP: Dr. Scott Steele MD Status:REG SDC Y Race: C Location: [place] [address] Anesthesia: Postop Eval I Current Vital Signs [...] Anesthesia document: Postop Eval 1 completed: Yes 09/04/241113 Date Tab Branch Signature: Date CC: Signed Normal [facility] MR/[id number] 09-04-2024 MR/POSTOPAN2 [facility] Medical Records Department [address] [place] [address] Anesthesia Postop Eval II 09/04/24 1126 MR#: [id number] Acct: [id number] Name: MARTHA FABIAN Rep #: [id number] : 1955 69 From: Dennis Chandler MD PCP: Dr. Scott Steele MD Status:REG SDC Y Race: C Location: [place] [address] Anesthesia Postop Eval I Sum Postop Eval [...] Dennis Branch Signature: Date CC: Signed Normal [facility] Gastroenterology Visit Repor ton 06-28-2024 Gastroenterology Visit Report [facility] [address] [place] [address] OFFICE VISIT Date of Service: 06/28/24 MR#: [id number] Acct: [id number] Name: CARENMARTHA K Rep #: [id number] : 1955 Provider: Karri Banegas DO Age/Sex: 68/F Location: [facility] Status: Signed Intake Intake Visit Reasons: PRE [...] Plan: She (more content not included)... Normal [facility] CBC W/Diff, Automatedon 12- 0-2023 Absolute Lymph 2.03 X10 3/uL Normal 0.83-4.51 [facility] Comment on above: Order Comment: Order Date: 12/18/24 Order Info: 018- - CBCD Performed By: #### L 500.4050, L100.0100, L501.9520, L501.9985 #### [facility] [address] [place], [address] Absolute Neut 4.4 X10 3/uL Normal 2.0-7.7 [facility] Comment on above: Order Comment: Order Date: 12/18/24 Order Info: 018- - CBCD Performed By: #### L 500.4050, L100.0100, L501.9520, L501.9985 #### [facility] [address] [place], [address] Basophils/100 WBC (Bld) 0.8 % Normal 0-1 [facility] Comment on above: Order Comment: Order Date: 12/18/24 Order Info: 018- - CBCD Performed By: #### L 500.4050, L100.0100, L501.9520, L501.9985 #### [facility] [address] [place], [address] Eosinophils/100 WBC (Bld) 1.2 % Normal 0-5 [facility] Comment on above: Order Comment: Order Date: 12/18/24 Order Info: 018- - CBCD Performed By: #### L 500.4050, L100.0100, L501.9520, L501.9985 #### [facility] [address] [place], [address] Erythrocyte distribution width (RBC) [Ratio] 14.7 % High 11.6-14.6 [facility] Comment on above: Order Comment: Order Date: 12/18/24 Order Info: 0184-1 - CBCD Performed By: #### L 500.4050, L100.0100, L501.9520, L501.9985 #### [facility] [address] [place], [address] Hematocrit (Bld) [Volume fraction] 41.1 % Normal 37-47 [facility] Comment on above: Order Comment: Order Date: 12/18/24 Order Info: 0184-1 - CBCD Performed By: #### L 500.4050, L100.0100, L501.9520, L501.9985 #### [facility] [address] [place], [address] Hemoglobin (Bld) [Mass/Vol] 13.2 g/dL Normal 12.0-15.0 [facility] Comment on above: Order Comment: Order Date: 12/18/24 Order Info: 0184-1 - CBCD Performed By: #### L 500.4050, L100.0100, L501.9520, L501.9985 #### [facility] [address] [place], [address] IG% 0.700 Normal 0.0-0.9 [facility] Comment on above: Order Comment: Order Date: 12/18/24 Order Info: 0184-1 - CBCD Result Comment: IG% - Immature Granulocytes (promyelocytes, myelocytes and metamyelocytes) > 1% indicates that a LEFT SHIFT is Present. Performed By: #### L 500.4050, L100.0100, L501.9520, L501.9985 #### [facility] [address] [place], [address] Lymphocytes/100 WBC (Bld) 28.1 % Normal 19-41 [facility] Comment on above: Order Comment: Order Date: 12/18/24 Order Info: 0184-1 - CBCD Performed By: #### L 500.4050, L100.0100, L501.9520, L501.9985 #### [facility] [address] [place], [address] MCH (RBC) [Entitic mass] 28.4 pg Normal 27.0-32.0 [facility] Comment on above: Order Comment: Order Date: 12/18/24 Order Info: 0184-1 - CBCD Performed By: #### L 500.4050, L100.0100, L501.9520, L501.9985 #### [facility] [address] [place], [address] MCHC (RBC) [Mass/Vol] 32.1 g/dL Normal 32-36 [facility] Comment on above: Order Comment: Order Date: 12/18/24 Order Info: 0184-1 - CBCD Performed By: #### L 500.4050, L100.0100, L501.9520, L501.9985 #### [facility] [address] [place], [address] MCV (RBC) [Entitic vol] 88.6 fL Normal 81-99 [facility] Comment on above: Order Comment: Order Date: 12/18/24 Order Info: 0184-1 - CBCD Performed By: #### L 500.4050, L100.0100, L501.9520, L501.9985 #### [facility] [address] [place], [address] Monocytes/100 WBC (Bld) 8.4 % Normal 0-10 [facility] Comment on above: Order Comment: Order Date: 12/18/24 Order Info: 0184-1 - CBCD Performed By: #### L 500.4050, L100.0100, L501.9520, L501.9985 #### [facility] [address] [place], [address] Neutrophils/100 WBC (Bld) 60.8 % Normal 47-70 [facility] Comment on above: Order Comment: Order Date: 12/18/24 Order Info: 0184-1 - CBCD Performed By: #### L 500.4050, L100.0100, L501.9520, L501.9985 #### [facility] [address] [place], [address] Nucleated RBC (Bld) [#/Vol] 0 10*3/uL Normal 0-5 [facility] Comment on above: Order Comment: Order Date: 12/18/24 Order Info: 0184-1 - CBCD Performed By: #### L 500.4050, L100.0100, L501.9520, L501.9985 #### [facility] [address] [place], [address] Platelet mean volume (Bld) [Entitic vol] 10.9 fL Normal 6.2-12.0 [facility] Comment on above: Order Comment: Order Date: 12/18/24 Order Info: 0184-1 - CBCD Performed By: #### L 500.4050, L100.0100, L501.9520, L501.9985 #### [facility] [address] [place], [address] Platelets (Bld) [#/Vol] 288 10*3/uL Normal 150-450 [facility] Comment on above: Order Comment: Order Date: 12/18/24 Order Info: 0184-1 - CBCD Performed By: #### L 500.4050, L100.0100, L501.9520, L501.9985 #### [facility] [address] [place], [address] RBC (Bld) [#/Vol] 4.64 10*6/uL Normal 4.2-5.4 [facility] Comment on above: Order Comment: Order Date: 12/18/24 Order Info: 0184-1 - CBCD Performed By: #### L 500.4050, L100.0100, L501.9520, L501.9985 #### [facility] [address] [place], [address] RDW SD 47.0 fl High 35.1-43.9 [facility] Comment on above: Order Comment: Order Date: 12/18/24 Order Info: 0184-1 - CBCD Performed By: #### L 500.4050, L100.0100, L501.9520, L501.9985 #### [facility] [address] [place], [address] WBC (Bld) [#/Vol] 7.2 10*3/uL Normal 4.4-11.0 [facility] [facility] Comment on above: Order Comment: Order Date: 12/18/24 Order Info: 0184- - CBCD Performed By: #### L 500.4050, L100.0100, L501.9520, L501.9985 #### [facility] [address] [place], [address] Comprehensive Metabolic Prof il 04-30-2024 Albumin [Mass/Vol] 4.0 g/dL Normal 3.2-5.0 [facility] Comment on above: Order Comment: Order Date: 12/18/24 Order Info: 0184- - CBCD Performed By: #### L 500.4050, L100.0100, L501.9520, L501.9985 #### [facility] [address] [place], [address] Albumin/Globulin [Mass ratio] 1.1 {ratio} Normal 0.9-2.4 [facility] Comment on above: Order Comment: Order Date: 12/18/24 Order Info: 0184-1 - CBCD Performed By: #### L 500.4050, L100.0100, L501.9520, L501.9985 #### [facility] [address] [place], [address] ALK P 34 U/L Low 45-117 [facility] Comment on above: Order Comment: Order Date: 12/18/24 Order Info: 0184-1 - CBCD Performed By: #### L 500.4050, L100.0100, L501.9520, L501.9985 #### [facility] [address] [place], [address] ALT [Catalytic activity/Vol] 25 U/L Normal 13-56 [facility] Comment on above: Order Comment: Order Date: 12/18/24 Order Info: 0184-1 - CBCD Performed By: #### L 500.4050, L100.0100, L501.9520, L501.9985 #### [facility] [address] [place], [address] AST [Catalytic activity/Vol] 16 U/L Normal 15-37 [facility] Comment on above: Order Comment: Order Date: 12/18/24 Order Info: 018- - CBCD Performed By: #### L 500.4050, L100.0100, L501.9520, L501.9985 #### [facility] [address] [place], [address] Bilirubin [Mass/Vol] 0.70 mg/dL Normal 0.20-1.00 [facility] Comment on above: Order Comment: Order Date: 12/18/24 Order Info: 018- - CBCD Result Comment: For patients on eltrombopag therapy, use of Dimension [place] TBIL is not recommended. Performed By: #### L 500.4050, L100.0100, L501.9520, L501.9985 #### [facility] [address] [place], [address] BUN/CRE 22.0 RATIO High 10-20 [facility] Comment on above: Order Comment: Order Date: 12/18/24 Order Info: 0184-1 - CBCD Performed By: #### L 500.4050, L100.0100, L501.9520, L501.9985 #### [facility] [address] [place], [address] CA,Total 9.7 mg/dL Normal 8.5-10.1 [facility] Comment on above: Order Comment: Order Date: 12/18/24 Order Info: 0184-1 - CBCD Performed By: #### L 500.4050, L100.0100, L501.9520, L501.9985 #### [facility] [address] [place], [address] Chloride [Moles/Vol] 106 mmol/L Normal 98-107 [facility] Comment on above: Order Comment: Order Date: 12/18/24 Order Info: 0184-1 - CBCD Performed By: #### L 500.4050, L100.0100, L501.9520, L501.9985 #### [facility] [address] [place], [address] CO2 [Moles/Vol] 27.0 mmol/L Normal 21.0-32.0 [facility] Comment on above: Order Comment: Order Date: 12/18/24 Order Info: 0184-1 - CBCD Performed By: #### L 500.4050, L100.0100, L501.9520, L501.9985 #### [facility] [address] [place], [address] Creatinine [Mass/Vol] 0.77 mg/dL Normal 0.55-1.02 [facility] Comment on above: Order Comment: Order Date: 12/18/24 Order Info: 0184-1 - CBCD Result Comment: The validity of the calculated GFR GFRAA in patients over 70 years has not been determined. Clinical correlation is essential. Performed By: #### L 500.4050, L100.0100, L501.9520, L501.9985 #### [facility] [address] [place], [address] EST GFR - AA 96 mL/min Normal >60 [facility] Comment on above: Order Comment: Order Date: 12/18/24 Order Info: 0184-1 - CBCD Result Comment: Afri can [place] GFR Calc Performed By: #### L 500.4050, L100.0100, L501.9520, L501.9985 #### [facility] [address] [place], [address] GAP 7 Normal 5-15 [facility] Comment on above: Order Comment: Order Date: 12/18/24 Order Info: 0184- - CBCD Performed By: #### L 500.4050, L100.0100, L501.9520, L501.9985 #### [facility] [address] [place], [address] GFR/1.73 sq M.predicted among non-blacks MDRD (S/P/Bld) [Vol rate/Area] 79 mL/min/{1.73_m2} Normal >60 [facility] Comment on above: Order Comment: Order Date: 12/18/24 Order Info: 0184- - CBCD Result Comment: Non- GFR Calc Performed By: #### L 500.4050, L100.0100, L501.9520, L501.9985 #### [facility] [address] [place], [address] Globulin (S) [Mass/Vol] 3.6 g/dL Normal 2.2-4.2 [facility] Comment on above: Order Comment: Order Date: 12/18/24 Order Info: 0184-1 - CBCD Performed By: #### L 500.4050, L100.0100, L501.9520, L501.9985 #### [facility] [address] [place], [address] Glucose [Mass/Vol] 110 mg/dL High 74-106 [facility] Comment on above: Order Comment: Order Date: 12/18/24 Order Info: 0184-1 - CBCD Result Comment: Fast ing Glucose result from 100 to 125 mg/dL suggests IMPAIRED HOMEOSTASIS per A.D.A. criteria. Performed By: #### L 500.4050, L100.0100, L501.9520, L501.9985 #### [facility] [address] [place], [address] Potassium [Moles/Vol] 4.2 mmol/L Normal 3.5-5.1 [facility] Comment on above: Order Comment: Order Date: 12/18/24 Order Info: 0184-1 - CBCD Performed By: #### L 500.4050, L100.0100, L501.9520, L501.9985 #### [facility] [address] [place], [address] Sodium [Moles/Vol] 140 mmol/L Normal 136-145 [facility] Comment on above: Order Comment: Order Date: 12/18/24 Order Info: 0184-1 - CBCD Performed By: #### L 500.4050, L100.0100, L501.9520, L501.9985 #### [facility] [address] [place], [address] T PROT 7.6 g/dL Normal 6.4-8.2 [facility] Comment on above: Order Comment: Order Date: 12/18/24 Order Info: 0184-1 - CBCD Performed By: #### L 500.4050, L100.0100, L501.9520, L501.9985 #### [facility] [address] [place], [address] Urea nitrogen [Mass/Vol] 17 mg/dL Normal 7-18 [facility] Comment on above: Order Comment: Order Date: 12/18/24 Order Info: 0184-1 - CBCD Performed By: #### L 500.4050, L100.0100, L501.9520, L501.9985 #### [facility] [address] [place], [address] Ferritinon 04-30-2024 Ferritin [Mass/Vol] 15 ng/mL Normal 8-252 [facility] Comment on above: Order Comment: Order Date: 12/18/24 Order Info: 0184-1 - CBCD Performed By: #### L 500.4050, L100.0100, L501.9520, L501.9985 #### [facility] [address] [place], [address] Hemoglobin A1con 04-30-2024 HbA1c (Bld) [Mass fraction] 5.9 % High 3.8-5.6 [facility] Comment on above: Order Comment: Order Date: 12/18/24 Order Info: 0786-1 - CMP Order Info: 3016-3 - TSH Result Comment: Norm al < 5.7 % Prediabetic 5.7 - 6.4 % Diabetic >or= 6.5 % Please note range changes. Performed By: #### L 500.4050, L100.0100, L501.9520, L501.9985 #### [facility] [address] [place], [address] Ironon 04-30-2024 Iron [Mass/Vol] 59 ug/dL Normal 50-170 [facility] Comment on above: Order Comment: Order Date: 12/18/24 Order Info: 0184- - CBCD Performed By: #### L 500.4050, L100.0100, L501.9520, L501.9985 #### [facility] [address] [place], [address] Iron Binding Capacity,Totalo n 04-30-2024 TIBC 340 ug/dL Normal 250-450 [facility] Comment on above: Order Comment: Order Date: 12/18/24 Order Info: 0184-1 - CBCD Performed By: #### L 500.4050, L100.0100, L501.9520, L501.9985 #### [facility] [address] [place], [address] Lipid Profileon 04-30-2024 Cholesterol [Mass/Vol] 156 mg/dL Normal 200 [facility] Comment on above: Order Comment: Order Date: 12/18/24 Order Info: 0184-1 - CBCD Result Comment: <200 mg/dL Desirable 200-240 mg/dL Borderline >240 mg/dL High Risk Performed By: #### L 500.4050, L100.0100, L501.9520, L501.9985 #### [facility] [address] [place], [address] Cholesterol in HDL [Mass/Vol] 76 mg/dL Normal [facility] Comment on above: Order Comment: Order Date: 12/18/24 Order Info: 0184-1 - CBCD Result Comment: The drugs N-Acetylcysteine and Metamizole may falsely depress this assay. Reference Range HDL <40 mg/dL Low HDL Cholesterol HDL >or= 60 mg/dL High HDL Cholesterol Performed By: #### L 500.4050, L100.0100, L501.9520, L501.9985 #### [facility] [address] [place], [address] Cholesterol in LDL [Mass/Vol] 67 mg/dL Normal 0-130 [facility] Comment on above: Order Comment: Order Date: 12/18/24 Order Info: 0184-1 - CBCD Performed By: #### L 500.4050, L100.0100, L501.9520, L501.9985 #### [facility] [address] [place], [address] Cholesterol in VLDL [Mass/Vol] 13 mg/dL Normal 5-40 [facility] Comment on above: Order Comment: Order Date: 12/18/24 Order Info: 0184-1 - CBCD Performed By: #### L 500.4050, L100.0100, L501.9520, L501.9985 #### [facility] [address] [place], [address] Triglyceride [Mass/Vol] 64 mg/dL Normal [facility] Comment on above: Order Comment: Order Date: 12/18/24 Order Info: 0184-1 - CBCD Result Comment: The drugs N-Acetylcysteine and Metamizole may falsely depress this assay. Serum Triglycerides Reference Interval Normal <150 mg/dL Borderline high 150 - 199 mg/dL High 200 - 499 mg/dL Very High > or = 500 mg/dL Performed By: #### L 500.4050, L100.0100, L501.9520, L501.9985 #### [facility] [address] [place], [address] Microalb:Creat Ratio,Random URon 04-30-2024 Creatinine [Mass/Vol] 22.20 mg/dL Normal NO RAN GE EST. [facility] Comment on above: Order Comment: Order Date: 12/18/24 Order Info: 0786-1 - CMP Order Info: [id number] - TSH Performed By: #### L 500.4050, L100.0100, L501.9520, L501.9985 #### [facility] [address] [place], [address] MALB:CRE 39.0 mg/g CRE High <30 mg/g CRE [facility] Comment on above: Order Comment: Order Date: 12/18/24 Order Info: 0786-1 - CMP Order Info: 3016-3 - TSH Performed By: #### L 500.4050, L100.0100, L501.9520, L501.9985 #### [facility] [address] [place], [address] MICROALBUMIN,UR 8.7 mg/L Normal NO RANGE EST. [facility] Comment on above: Order Comment: Order Date: 12/18/24 Order Info: 0786-1 - CMP Order Info: 3016-3 - TSH Performed By: #### L 500.4050, L100.0100, L501.9520, L501.9985 #### [facility] [address] [place], [address] Urinalysis, Completeon 04-30 BACTERIA RARE Normal None Seen [facility] Comment on above: Order Comment: CLEAN CATCH Performed By: #### L 400.0001 ####[facility] [address] [place], [address] WBC 0-5 SEEN Normal 0-5 [facility] Comment on above: Order Comment: CLEAN CATCH Performed By: #### L 400.0001 ####[facility] [address] [place], [address] BILIRUBIN URINE Negative Normal Negative [facility] Comment on above: Order Comment: CLEAN CATCH Performed By: #### L 400.0001 ####[facility] [address] [place], [address] Clarity (U) Clear Normal Clear [facility] Comment on above: Order Comment: CLEAN CATCH Performed By: #### L 400.0001 ####[facility] [address] [place], [address] Color (U) Straw Normal Yellow [facility] Comment on above: Order Comment: CLEAN CATCH Performed By: #### L 400.0001 ####[facility] [address] [place], [address] GLUCOSE, UR 1000 mg/dl Abnormal Normal [facility] Comment on above: Order Comment: CLEAN CATCH Performed By: #### L 400.0001 ####[facility] [address] [place], [address] KETONE UR Negative Normal Negative [facility] Comment on above: Order Comment: CLEAN CATCH Performed By: #### L 400.0001 ####[facility] [address] [place], [address] LEUK ESTERASE 25 /ul Abnormal Negative [facility] Comment on above: Order Comment: CLEAN CATCH Performed By: #### L 400.0001 ####[facility] [address] [place], [address] Nitrite Ql (U) Negative Normal Negative [facility] Comment on above: Order Comment: CLEAN CATCH Performed By: #### L 400.0001 ####[facility] [address] [place], [address] OCCULT BLOOD-UR Negative Normal Negative [facility] Comment on above: Order Comment: CLEAN CATCH Performed By: #### L 400.0001 ####[facility] [address] [place], [address] pH UR 6.5 Normal 5.0 - 8.0 [facility] Comment on above: Order Comment: CLEAN CATCH Performed By: #### L 400.0001 ####[facility] [address] [place], [address] PROT DIPSTX Negative Normal Negative [facility] Comment on above: Order Comment: CLEAN CATCH Performed By: #### L 400.0001 ####[facility] [address] [place], [address] SP.GR. DIPSTX 1.010 Normal 1.002-1.030 [facility] Comment on above: Order Comment: CLEAN CATCH Performed By: #### L 400.0001 ####[facility] [address] [place], [address] UROBILI Normal Normal Normal [facility] Comment on above: Order Comment: CLEAN CATCH Performed By: #### L 400.0001 ####[facility] [address] [place], [address] EPI,SQUAMOUS 0 SEEN Normal 5-10 [facility] Comment on above: Order Comment: CLEAN CATCH Performed By: #### L 400.0001 ####[facility] [address] [place], [address] Mucus Ql (Urine sed) 0 SEEN Normal [facility] Comment on above: Order Comment: CLEAN CATCH Performed By: #### L 400.0001 ####[facility] [address] [place], [address] RBC 0 SEEN Normal 0-5 [facility] Comment on above: Order Comment: CLEAN CATCH Performed By: #### L 400.0001 ####[facility] [address] [place], [address] Vitamin B12on 04-30-2024 Cobalamin (Vitamin B12) [Mass/Vol] 431 pg/mL Normal 211-911 [facility] Comment on above: Order Comment: Order Date: 12/18/24 Order Info: 0786-1 - CMP Order Info: 3016-3 - TSH Performed By: #### L 500.4050, L100.0100, L501.9520, L501.9985 #### [facility] [address] [place], [address] Vitamin D,25 Hydroxyon 04-30 Vitamin D 25-OH 52.6 ng/mL Normal [facility] Comment on above: Order Comment: Order Date: 12/18/24 Order Info: 0786-1 - CMP Order Info: 3016-3 - TSH Result Comment: Salma min D 25(OH) Status Range Deficiency <20 ng/mL (50nmol/L) Insufficiency 20 - 30 ng/mL (50 - 75 nmol/L) Sufficiency 30 - 100 ng/mL (75 - 250 nmol/L) Toxicity >100 ng/mL (>250 nmol/L) Performed By: #### L 500.4050, L100.0100, L501.9520, L501.9985 #### [facility] [address] [place], [address] Basic metabolic 2000 panelOr dered By: Rocio Bai on 04-05-2024 Anion gap [Moles/Vol] 13 mmol/L 8 - 15 mmol/L [facility] Calcium [Mass/Vol] 10.6 mg/dL High 8.5 - 10. 2 mg/dL [facility] Chloride [Moles/Vol] 101 mmol/L 98 - 10 7 mmol/L [facility] CO2 [Moles/Vol] 26 mmol/L 22 - 30 mmol/L [facility] Creatinine [Mass/Vol] 0.79 mg/dL 0.58 - 0.96 mg/dL [facility] GFR/1.73 sq M.predicted among non-blacks MDRD (S/P/Bld) [Vol rate/Area] 83 mL/min/{1.73_m2} - PINF [facility] Comment on above: Estimated Glomerular Filtration [...] 106 mg/dL High 74 - 99 mg/dL [facility] Comment on above: The [place] Diabete s Association (ADA) provides guidance for [...] Standards of Medical Care in Diabetes 2016, [place] Diabetes Association. Diabetes Care. 2016.39(Suppl 1). Interpretation and review of laboratory results Abnormal [facility] Potassium [Moles/Vol] 3.9 mmol/L 3.7 - 5.1 mmol/L [facility] Sodium [Moles/Vol] 140 mmol/L 136 - 144 mmol/L [facility] Urea nitrogen [Mass/Vol] 17 mg/dL 7 - 21 mg/d L [facility] Basic metabolic 2000 panelon 04-05-2024 Anion gap [Moles/Vol] 13 mmol/L Normal 8-15 [facility] Comment on above: Order Comment: Speci men Type: URINE SPECIMEN Ordering Facility: [facility] Address: [address] [place] [address] Performed By: #### L [id number] #### [facility] CLIA [id number] [address] [place] [address] [place] Calcium [Mass/Vol] 10.6 mg/dL High 8.5-10.2 [facility] Comment on above: Order Comment: Speci men Type: URINE SPECIMEN Ordering Facility: [facility] Address: [address] [place] [address] Performed By: #### L [id number] #### [facility] CLIA [id number] [address] [place] [address] [place] Chloride [Moles/Vol] 101 mmol/L Normal 98-107 [facility] Comment on above: Order Comment: Speci men Type: URINE SPECIMEN Ordering Facility: [facility] Address: [address] [place] [address] Performed By: #### L [id number] #### [facility] CLIA [id number] [address] [place] [address] [place] CO2 [Moles/Vol] 26 mmol/L Normal 22-30 [facility] Comment on above: Order Comment: Speci men Type: URINE SPECIMEN Ordering Facility: [facility] Address: [address] [place] [address] Performed By: #### L [id number] #### [facility] CLIA [id number] [address] [place] [address] [place] Creatinine [Mass/Vol] 0.79 mg/dL Normal 0.58-0.96 [facility] Comment on above: Order Comment: Speci men Type: URINE SPECIMEN Ordering Facility: [facility] Address: [address] [place] [address] Performed By: #### L [id number] #### [facility] CLIA [id number] [address] [place] [address] [place] Creatinine and Glomerular filtration rate.predicted panel (S/P/Bld) 83 mL/min/1.73m??? Normal >=60 [facility] Comment on above: Order Comment: Sulma ho Type: URINE SPECIMEN Ordering Facility: [facility] Address: [address] [place] [address] Result Comment: Keke mated Glomerular Filtration Rate [...] reflect actual GFR. Performed By: #### L [id number] #### [facility] CLIA [id number] [address] [place] [address] [place] Glucose [Mass/Vol] 106 mg/dL High 74-99 [facility] Comment on above: Order Comment: Sulma ho Type: URINE SPECIMEN Ordering Facility: [facility] Address: [address] [place] [address] Result Comment: The [place] Diabetes Association (ADA) provides guidance for cutoff [...] Standards of Medical Care in Diabetes 2016, [place] Diabetes Association. Diabetes Care. 2016.39(Suppl 1). Performed By: #### L [id number] #### [facility] CLIA [id number] [address] [place] [address] [place] Potassium [Moles/Vol] 3.9 mmol/L Normal 3.7-5.1 [facility] Comment on above: Order Comment: Sulma ho Type: URINE SPECIMEN Ordering Facility: [facility] Address: [address] [place] [address] Performed By: #### L [id number] #### [facility] CLIA [id number] [address] [place] [address] [place] Sodium [Moles/Vol] 140 mmol/L Normal 136-144 [facility] Comment on above: Order Comment: Speci men Type: URINE SPECIMEN Ordering Facility: [facility] Address: [address] [place] [address] Performed By: #### L [id number] #### [facility] CLIA [id number] [address] [place] [address] [place] Urea nitrogen [Mass/Vol] 17 mg/dL Normal 7-21 [facility] Comment on above: Order Comment: Speci men Type: URINE SPECIMEN Ordering Facility: [facility] Address: [address] [place] [address] Performed By: #### L [id number] #### [facility] CLIA [id number] [address] [place] [address] [place] CBC W Auto Differential pane l (Bld)on 04-05-2024 Basophils (Bld) [#/Vol] 0.04 10*3/uL [facility] Basophils/100 WBC (Bld) 0.5 % [facility] Differential cell count method Nom (Bld) Auto [facility] Eosinophils (Bld) [#/Vol] 0.07 10*3/uL [facility] Eosinophils/100 WBC (Bld) 0.8 % [facility] Erythrocyte distribution width (RBC) [Ratio] 14.6 % 11.5 - 15.0 % [facility] Hematocrit (Bld) [Volume fraction] 39.8 % 36.0 - 46.0 % [facility] Hemoglobin (Bld) [Mass/Vol] 12.9 g/dL 11.5 - 15.5 g/dL [facility] Immature granulocytes (Bld) [#/Vol] 0.04 10*3/uL [facility] Immature granulocytes/100 WBC (Bld) 0.5 % [facility] Lymphocytes (Bld) [#/Vol] 1.87 10*3/uL [facility] Lymphocytes/100 WBC (Bld) 22.6 % [facility] MCH (RBC) [Entitic mass] 28.5 pg 26. 0 - 34.0 pg [facility] MCHC (RBC) [Mass/Vol] 32.4 g/dL 30.5 - 36.0 g/dL [facility] MCV (RBC) [Entitic vol] 87.9 fL 80.0 - 100.0 fL [facility] Monocytes (Bld) [#/Vol] 0.53 10*3/uL [facility] Monocytes/100 WBC (Bld) 6.4 % C [facility] Neutrophils (Bld) [#/Vol] 5.71 10*3/uL [facility] Neutrophils/100 WBC (Bld) 69.2 % [facility] Nucleated RBC (Bld) [#/Vol] NINF [facility] Nucleated RBC/100 WBC (Bld) [Ratio] 0.0 % /100 WBC [facility] Platelet mean volume (Bld) [Entitic vol] 10.2 fL 9.0 - 12.7 fL [facility] Platelets (Bld) [#/Vol] 276 10*3/uL [facility] RBC (Bld) [#/Vol] 4.53 10*6/uL 3.90 - 5.2 0 m/uL [facility] WBC (Bld) [#/Vol] 8.26 10*3/uL [facility] Basophils (Bld) [#/Vol] 0.04 10*3/uL Normal <0.11 [facility] Comment on above: Order Comment: Speci men Type: BLOOD SPECIMEN Ordering Facility: [facility] Address: [address] [place] [address] Performed By: #### 5 7021-8 #### [facility] JONOIA [id number] [address] [place] [address] [place] Basophils/100 WBC (Bld) 0.5 % Normal C [facility] Comment on above: Order Comment: Speci men Type: BLOOD SPECIMEN Ordering Facility: [facility] Address: [address] [place] [address] Performed By: #### 5 7021-8 #### [facility] CLIA [id number] [address] [place] [address] [place] Differential cell count method Nom (Bld) Auto Normal [facility] Comment on above: Order Comment: Speci men Type: BLOOD SPECIMEN Ordering Facility: [facility] Address: [address] [place] [address] Performed By: #### 5 7021-8 #### [facility] CLIA [id number] [address] [place] [address] [place] Eosinophils (Bld) [#/Vol] 0.07 10*3/uL Normal <0.46 [facility] Comment on above: Order Comment: Speci men Type: BLOOD SPECIMEN Ordering Facility: [facility] Address: [address] [place] [address] Performed By: #### 5 7021-8 #### [facility] CLIA [id number] [address] [place] [address] [place] Eosinophils/100 WBC (Bld) 0.8 % Normal [facility] Comment on above: Order Comment: Speci men Type: BLOOD SPECIMEN Ordering Facility: [facility] Address: [address] [place], [place] [address] Performed By: #### 5 7021-8 #### [facility] CLIA [id number] [address] [place] [address] [place] Erythrocyte distribution width (RBC) [Ratio] 14.6 % Normal 11.5-15.0 [facility] Comment on above: Order Comment: Speci men Type: BLOOD SPECIMEN Ordering Facility: [facility] Address: [address] [place] [address] Performed By: #### 5 7021-8 #### [facility] CLIA [id number] [address] [place] [address] [place] Hematocrit (Bld) [Volume fraction] 39.8 % Normal 36.0-46.0 [facility] Comment on above: Order Comment: Speci men Type: BLOOD SPECIMEN Ordering Facility: [facility] Address: [address] [place] [address] Performed By: #### 5 7021-8 #### [facility] CLIA [id number] [address] [place] [address] [place] Hemoglobin (Bld) [Mass/Vol] 12.9 g/dL Normal 11.5-15.5 [facility] Comment on above: Order Comment: Speci men Type: BLOOD SPECIMEN Ordering Facility: [facility] Address: [address] [place] [address] Performed By: #### 5 7021-8 #### [facility] CLIA [id number] [address] [place] [address] [place] Immature granulocytes (Bld) [#/Vol] 0.04 10*3/uL Normal <0.10 [facility] Comment on above: Order Comment: Speci men Type: BLOOD SPECIMEN Ordering Facility: [facility] Address: [address] [place] [address] Performed By: #### 5 7021-8 #### [facility] CLIA [id number] [address] [place] [address] [place] Immature granulocytes/100 WBC (Bld) 0.5 % Normal [facility] Comment on above: Order Comment: Speci men Type: BLOOD SPECIMEN Ordering Facility: [facility] Address: [address] [place] [address] Performed By: #### 5 7021-8 #### [facility] CLIA [id number] [address] [place] [address] [place] Lymphocytes (Bld) [#/Vol] 1.87 10*3/uL Normal 1.00-4.[address] [facility] Comment on above: Order Comment: Speci men Type: BLOOD SPECIMEN Ordering Facility: [facility] Address: [address] [place] [address] Performed By: #### 5 7021-8 #### [facility] CLIA [id number] [address] [place] [address] [place] Lymphocytes/100 WBC (Bld) 22.6 % Normal [facility] Comment on above: Order Comment: Speci men Type: BLOOD SPECIMEN Ordering Facility: [facility] Address: [address] [place] [address] Performed By: #### 5 7021-8 #### [facility] CLIA [id number] [address] [place] [address] [place] MCH (RBC) [Entitic mass] 28.5 pg Normal 26.0-34.0 [facility] Comment on above: Order Comment: Speci men Type: BLOOD SPECIMEN Ordering Facility: [facility] Address: [address] [place] [address] Performed By: #### 5 7021-8 #### [facility] CLIA [id number] [address] [place] [address] [place] MCHC (RBC) [Mass/Vol] 32.4 g/dL Normal 30.5-36.0 [facility] Comment on above: Order Comment: Speci men Type: BLOOD SPECIMEN Ordering Facility: [facility] Address: [address] [place] [address] Performed By: #### 5 7021-8 #### [facility] CLIA [id number] [address] [place] [address] [place] MCV (RBC) [Entitic vol] 87.9 fL Normal 80.0-100.0 [facility] Comment on above: Order Comment: Speci men Type: BLOOD SPECIMEN Ordering Facility: [facility] Address: [address] [place] [address] Performed By: #### 5 7021-8 #### [facility] CLIA [id number] [address] [place] [address] [place] Monocytes (Bld) [#/Vol] 0.53 10*3/uL Normal <0.87 [facility] Comment on above: Order Comment: Speci men Type: BLOOD SPECIMEN Ordering Facility: [facility] Address: [address] [place] [address] Performed By: #### 5 7021-8 #### [facility] CLIA [id number] [address] [place] [address] [place] Monocytes/100 WBC (Bld) 6.4 % Normal [facility] Comment on above: Order Comment: Speci men Type: BLOOD SPECIMEN Ordering Facility: [facility] Address: [address] [place] [address] Performed By: #### 5 7021-8 #### [facility] CLIA [id number] [address] [place] [address] [place] Neutrophils (Bld) [#/Vol] 5.71 10*3/uL Normal 1.45-7.[address] [facility] Comment on above: Order Comment: Speci men Type: BLOOD SPECIMEN Ordering Facility: [facility] Address: [address] [place] [address] Performed By: #### 5 7021-8 #### [facility] CLIA [id number] [address] [place] [address] [place] Neutrophils/100 WBC (Bld) 69.2 % Normal [facility] Comment on above: Order Comment: Speci men Type: BLOOD SPECIMEN Ordering Facility: [facility] Address: [address] [place] [address] Performed By: #### 5 7021-8 #### [facility] CLIA [id number] [address] [place] [address] [place] Nucleated RBC (Bld) [#/Vol] 10*3/uL Normal <0.01 [facility] Comment on above: Order Comment: Speci men Type: BLOOD SPECIMEN Ordering Facility: [facility] Address: [address] [place] [address] Performed By: #### 5 7021-8 #### [facility] CLIA [id number] [address] [place] [address] [place] Nucleated RBC/100 WBC (Bld) [Ratio] 0.0 /[address] [facility] Comment on above: Order Comment: Speci men Type: BLOOD SPECIMEN Ordering Facility: [facility] Address: [address] [place] [address] Performed By: #### 5 7021-8 #### [facility] CLIA [id number] [address] [place] [address] [place] Platelet mean volume (Bld) [Entitic vol] 10.2 fL Normal 9.0-12.7 [facility] Comment on above: Order Comment: Speci men Type: BLOOD SPECIMEN Ordering Facility: [facility] Address: [address] [place] [address] Performed By: #### 5 7021-8 #### [facility] CLIA [id number] [address] [place] [address] [place] Platelets (Bld) [#/Vol] 276 10*3/uL Normal 150-400 [facility] Comment on above: Order Comment: Speci men Type: BLOOD SPECIMEN Ordering Facility: [facility] Address: [address] [place] [address] Performed By: #### 5 7021-8 #### [facility] CLIA [id number] [address] [place] [address] [place] RBC (Bld) [#/Vol] 4.53 10*6/uL Normal 3.90-5.20 [facility] Comment on above: Order Comment: Speci men Type: BLOOD SPECIMEN Ordering Facility: [facility] Address: [address] [place] [address] Performed By: #### 5 7021-8 #### [facility] CLIA [id number] [address] [place] [address] [place] WBC (Bld) [#/Vol] 8.26 10*3/uL Normal 3.70-11.00 [facility] Comment on above: Order Comment: Speci men Type: BLOOD SPECIMEN Ordering Facility: [facility] Address: [address] [place] [id number] Performed By: #### 5 7021-8 #### [facility] CLIA [id number] [address] [place] CNOVSPon 04-05-2024 CNOVSP Visit (SP) Office ([facility]) MARTHA FABIAN ([id number]) 1955 F Date Time Provider Department 04/05/24 10:30 AM JUAN RAMON PURCELL During your visit today, we recorded the following information about you: Temperature Pulse Blood pressure Weight 97.4 degrees 82/minute 133/86 69.4 kg Height 1.575 m Juan Ramon Purcell MD 04/05/2024 10:53 AM Signed HISTORY OF PRESENT ILLNESS: Marthayazmin Fabian is a 68 year old female [...] which included preparing to see the patient, [id number] patient care, completing clinical documentation, obtaining and/or reviewing separately obtained history, performing a medically appropriate examination, counseling and educating the patient/family/caregive r, ordering medications, tests, or procedures, independently interpreting results (not separately reported), and communicating results to the patient/family/caregive r. Electronically Signed: Juan Ramon Purcell MD April 05, 2024 10:20 AM Referring Provider: SCOTT STEELE [[id number]] Allergies As of Date: 04/05/ (more content not included)... Normal [facility] IMMUNOFIXATION SCREEN, SERUM on 04-05-2024 INTERPRETATION [...] monoclonal gammopathy. Clinical correlation is necessary. Normal [facility] Comment on above: Order Comment: Speci men Type: URINE SPECIMEN Ordering Facility: [facility] Address: [address] [place] [address] Performed By: #### L [id number] #### [facility] CLIA [id number] [address] [place] [address] [place] MPA RESULT A poorly defined reg ion of restricted mobility is present that may represent an M protein. Abnormal No M protein is identified. [facility] Comment on above: Order Comment: Speci men Type: URINE SPECIMEN Ordering Facility: [facility] Address: [address] [place] [address] Performed By: #### L [id number] #### [facility] CLIA [id number] [address] [place] [address] [place] STAFF REVIEW (MPA) Reviewed by Daniel Hannon MD, Ph.D ([id number]) Normal [facility] Comment on above: Order Comment: Speci men Type: URINE SPECIMEN Ordering Facility: [facility] Address: [address] [place] [address] Performed By: #### L [id number] #### [facility] CLIA [id number] [address] [place] [address] [place] IMMUNOGLOBULINS,IGG,IGA,IGMo n 04-05-2024 IgA [Mass/Vol] 171 mg/dL Normal 70-400 [facility] Comment on above: Order Comment: Speci men Type: BLOOD SPECIMEN Ordering Facility: [facility] Address: [address] [place] [address] Performed By: #### S ERIMM #### [facility] CLIA [id number] [address] [place] [address] [place] IgG [Mass/Vol] 730 mg/dL Normal 700-1600 [facility] Comment on above: Order Comment: Speci men Type: BLOOD SPECIMEN Ordering Facility: [facility] Address: [address] [place] [address] Performed By: #### S ERIMM #### [facility] CLIA [id number] [address] [place] [address] [place] IgM [Mass/Vol] 515 mg/dL High 40-230 [facility] Comment on above: Order Comment: Speci men Type: BLOOD SPECIMEN Ordering Facility: [facility] Address: [address] [place] [address] Performed By: #### S ERIMM #### [facility] CLIA [id number] [address] [place] [address] [place] KAPPA/LA,FREE,SERon 2023 Immunoglobulin light chains.kappa.free (S) [Mass/Vol] 30.9 mg/L High 3.3-19.4 [facility] Comment on above: Order Comment: Speci men Type: BLOOD SPECIMEN Ordering Facility: [facility] Address: [address] [place] [address] Result Comment: Rare ly, increased serum free light chains levels may not be detected or accurately quantified due to prozone phenomenon or in high viscosity samples using this immunoturbidimetric assay. Correlation with other laboratory results and clinical findings is recommended. The Ulmer Free Light Chain was performed using the Binding Site Optilite immunoturbidimetric method. Result obtained with different assay methods or kits cannot be used interchangeably. Performed By: #### K LFRS #### [facility] CLIA [id number] [address] [place] [address] [place] Immunoglobulin light chains.kappa/Immunoglobul in light chains.lambda (S) [Mass ratio] 1.22 Normal 0.26-1.65 [facility] Comment on above: Order Comment: Speci men Type: BLOOD SPECIMEN Ordering Facility: [facility] Address: [address] [place] [address] Performed By: #### K LFRS #### [facility] CLIA [id number] [address] [place] [address] [place] Immunoglobulin light chains.lambda.free [Mass/Vol] 25.4 mg/L Normal 5.7-26.3 [facility] Comment on above: Order Comment: Speci men Type: BLOOD SPECIMEN Ordering Facility: [facility] Address: [address] [place] [address] Result Comment: Rare ly, increased serum free [...] interchangeably. Performed By: #### K LFRS #### [facility] CLIA [id number] [address] [place] [address] [place] PROTEIN ELECTROPHORESIS SERU M (P)on 04-05-2024 Albumin [Mass/Vol] 4.59 g/dL Normal 3.43-5.41 [facility] Comment on above: Order Comment: Speci men Type: URINE SPECIMEN Ordering Facility: [facility] Address: [address] [place] [address] Performed By: #### L [id number] #### [facility] CLIA [id number] [address] [place] [address] [place] Alpha 1 globulin Elph [Mass/Vol] 0.26 g/dL Normal 0.18-0.43 [facility] Comment on above: Order Comment: Speci men Type: URINE SPECIMEN Ordering Facility: [facility] Address: [address] [place] [address] Performed By: #### L [id number] #### [facility] CLIA [id number] [address] [place] [address] [place] Alpha 2 globulin Elph [Mass/Vol] 0.69 g/dL Normal 0.42-0.98 [facility] Comment on above: Order Comment: Speci men Type: URINE SPECIMEN Ordering Facility: [facility] Address: [address] [place] [address] Performed By: #### L [id number] #### [facility] CLIA [id number] [address] [place] [address] [place] Beta globulin Elph [Mass/Vol] 0.81 g/dL Normal 0.61-1.17 [facility] Comment on above: Order Comment: Speci men Type: URINE SPECIMEN Ordering Facility: [facility] Address: [address] [place] [address] Performed By: #### L [id number] #### [facility] CLIA [id number] [address] [place] [address] [place] Gamma globulin Elph [Mass/Vol] 0.85 g/dL Normal 0.53-1.51 [facility] Comment on above: Order Comment: Speci men Type: URINE SPECIMEN Ordering Facility: [facility] Address: [address] [place] [address] Performed By: #### L [id number] #### [facility] CLIA [id number] [address] [place] [address] [place] M-PROTEIN LOCATION Normal [facility] Comment on above: Order Comment: Speci men Type: URINE SPECIMEN Ordering Facility: [facility] Address: [address] [place] [address] Result Comment: Not Applicable. Performed By: #### L [id number] #### [facility] CLIA [id number] [address] [place] [address] [place] Protein Fractions [Interp] No definitive M protein is identified on protein electrophoresis. Normal No definitive M protein is identified on protein electrophore sis. [facility] Comment on above: Order Comment: Speci men Type: URINE SPECIMEN Ordering Facility: [facility] Address: [address] [place] [address] Performed By: #### L [id number] #### [facility] CLIA [id number] [address] [place] [address] [place] Protein.monoclonal Elph [Mass/Vol] 0.00 g/dL Normal <=0.00 [facility] Comment on above: Order Comment: Speci men Type: URINE SPECIMEN Ordering Facility: [facility] Address: [address] [place] [address] Performed By: #### L [id number] #### [facility] CLIA [id number] [address] [place] [address] [place] SPE STAFF REVIEW Reviewed by Daniel Hannon MD, Ph.D ([id number]) Normal [facility] Comment on above: Order Comment: Speci men Type: URINE SPECIMEN Ordering Facility: [facility] Address: [address] [place] [address] Performed By: #### L [id number] #### [facility] CLIA [id number] [address] [place] [address] [place] Prot SerPl-mCncon 04-05-2024 Protein [Mass/Vol] 7.2 g/dL Normal 6.3-8.0 [facility] Comment on above: Order Comment: Speci men Type: URINE SPECIMEN Ordering Facility: [facility] Address: [address] [place] [address] Performed By: #### L [id number] #### [facility] CLIA [id number] [address] [place] [address] [place] Prot Ur-mCncon 04-05-2024 Protein (U) [Mass/Vol] 6 mg/dL Normal 0-20 [facility] Comment on above: Order Comment: Speci men Type: URINE SPECIMEN Ordering Facility: [facility] Address: [address] [place] [address] Performed By: #### 2 888-6 #### [facility] CLIA [id number] [address] [place] [address] [place] URINE PROTEIN ELECTROPHORESI S RANDOM (P)on 04-05-2024 Albumin Elph (U) [Mass fraction] 51.02 % Normal [facility] Comment on above: Order Comment: Speci men Type: URINE SPECIMEN Ordering Facility: [facility] Address: [address] [id number] Performed By: #### L [id number] #### [facility] CLIA [id number] [address] [place] [address] [place] Alpha 1 globulin Elph (U) [Mass fraction] 2.93 % Normal [facility] Comment on above: Order Comment: Speci men Type: URINE SPECIMEN Ordering Facility: [facility] Address: [address] [place] [address] Performed By: #### L [id number] #### [facility] CLIA [id number] [address] [place] [address] [place] Alpha 2 globulin Elph (U) [Mass fraction] 14.72 % Normal [facility] Comment on above: Order Comment: Speci men Type: URINE SPECIMEN Ordering Facility: [facility] Address: [address] [place] [address] Performed By: #### L [id number] #### [facility] CLIA [id number] [address] [place] [address] [place] Beta globulin Elph (U) [Mass fraction] 15.45 % Normal [facility] Comment on above: Order Comment: Speci men Type: URINE SPECIMEN Ordering Facility: [facility] Address: [address] [place] [address] Performed By: #### L [id number] #### [facility] CLIA [id number] [address] [place], [place] [address] [place] Gamma globulin Elph (U) [Mass fraction] 15.88 % Normal [facility] Comment on above: Order Comment: Speci men Type: URINE SPECIMEN Ordering Facility: [facility] Address: [address] [place], [place] [id number] Performed By: #### L [id number] #### [facility] CLIA [id number] [address] [place], [place] [address] [place] Protein Fractions Elph Jose (U) [Interp] No definitive M protein is identified on protein electrophoresis. Normal No definitive M protein is identified on protein electrophore sis. [facility] Comment on above: Order Comment: Speci men Type: URINE SPECIMEN Ordering Facility: [facility] Address: [address] [place] [address] Performed By: #### L [id number] #### [facility] CLIA [id number] [address] [place] [address] OF [facility] STAFF REVIEW (URINE ELECTRO) Reviewed by Daniel Hannon MD, Ph.D ([id number]) Normal [facility] Comment on above: Order Comment: Speci men Type: URINE SPECIMEN Ordering Facility: [facility] Address: [address] [place] [address] Performed By: #### L [id number] #### [facility] CLIA [id number] [address] [place] [address] [place] Immunoglobulin Aon 4 IMMUNOGLOB A QN 186 mg/dL Normal 87-352 [facility] Comment on above: Order Comment: Y Performed By: #### L 503.6550, L503.6150 #### [facility] [address] [place], [address] Immunoglobulin Raji 4 IMMUNOGLOB E QN 41 IU/mL Normal 6-495 [facility] Comment on above: Order Comment: Y Performed By: #### L 503.6550, L503.6150 #### [facility] [address] [place], [address] Immunoglobulin Torrey 4 IMMUNOGLOB G QN 785 mg/dL Normal 586-1602 [facility] Comment on above: Order Comment: Y Performed By: #### L 503.6550, L503.6150 #### [facility] [address] [place], [address] Immunoglobulin Mon 4 IMMUNOGLOB M QN 559 mg/dL High 26-217 [facility] Comment on above: Order Comment: Y Result Comment: Perf ormed at: - [facility] [address] [id number] [employer] Worker: Han Das PhD, Phone: [phone] Performed By: #### L 3200.1500, L3100.3450, L3200.1600, L3200.1400, L3200.1300 ####[facility] [address] [place], [address] Protein Electroph, Son 03-13 Albumin [Mass/Vol] 4.4 g/dL Normal 2.9-4.4 [facility] Comment on above: Order Comment: Y Performed By: #### L 3200.1500, L3100.3450, L3200.1600, L3200.1400, L3200.1300 ####[facility] [address] [place], [address] Albumin/Globulin [Mass ratio] 1.4 {ratio} Normal 0.7-1.7 [facility] Comment on above: Order Comment: Y Performed By: #### L 3200.1500, L3100.3450, L3200.1600, L3200.1400, L3200.1300 ####[facility] [address] [place], [address] ALPHA-1 GLOBUL 0.2 g/dL Normal 0.0-0.4 [facility] Comment on above: Order Comment: Y Performed By: #### L 3200.1500, L3100.3450, L3200.1600, L3200.1400, L3200.1300 ####[facility] [address] [place], [address] ALPHA-2 GLOBUL 0.8 g/dL Normal 0.4-1.0 [facility] Comment on above: Order Comment: Y Performed By: #### L 3200.1500, L3100.3450, L3200.1600, L3200.1400, L3200.1300 ####[facility] [address] [place], [address] BETA GLOBULIN 0.9 g/dL Normal 0.7-1.3 [facility] Comment on above: Order Comment: Y Performed By: #### L 3200.1500, L3100.3450, L3200.1600, L3200.1400, L3200.1300 ####[facility] [address] [place], [address] GAMMA GLOBULIN 1.1 g/dL Normal 0.4-1.8 [facility] Comment on above: Order Comment: Y Performed By: #### L 3200.1500, L3100.3450, L3200.1600, L3200.1400, L3200.1300 ####[facility] [address] [place], [address] Globulin (S) [Mass/Vol] 3.1 g/dL Normal 2.2-3.9 [facility] Comment on above: Order Comment: Y Performed By: #### L 3200.1500, L3100.3450, L3200.1600, L3200.1400, L3200.1300 ####[facility] [address] [place], [address] INTERPRETATION Comment Normal . [facility] Comment on above: Order Comment: Y Result Comment: Prot ein electrophoresis scan will follow via computer, mail, or franchise broker delivery. Performed By: #### L 3200.1500, L3100.3450, L3200.1600, L3200.1400, L3200.1300 ####[facility] [address] [place], [address] M-SPIKE 0.4 g/dL Abnormal Not Observed [facility] Comment on above: Order Comment: Y Performed By: #### L 3200.1500, L3100.3450, L3200.1600, L3200.1400, L3200.1300 ####[facility] [address] [place], [address] NOTE: Comment Normal . [facility] Comment on above: Order Comment: Y [...] of Bence-Lewis protein. Performed By: #### L 3200.1500, L3100.3450, L3200.1600, L3200.1400, L3200.1300 ####[facility] [address] [place], [address] Protein [Mass/Vol] 7.5 g/dL Normal 6.0-8.5 [facility] Comment on above: Order Comment: Y Performed By: #### L 3200.1500, L3100.3450, L3200.1600, L3200.1400, L3200.1300 ####[facility] [address] [place], [address] Ferritinon 03-12-2024 Ferritin [Mass/Vol] 28 ng/mL Normal 8-252 [facility] [facility] Comment on above: Performed By: #### L [id number], [id number] #### [facility] [address] [place], [address] Ironon 03-12-2024 Iron [Mass/Vol] 52 ug/dL Normal 50-170 [facility] Comment on above: Performed By: #### L [id number], [id number] #### [facility] [address] [place], [address] Absolute lymphocyte countOrd ered By: Scott Steele on 08-23-2023 Lymphocytes Auto (Unsp spec) [#/Vol] 2.13 10*3/uL 0.83-4.51 [facility] Automated lymphocyte count a s percentage of total leukocytesOrdered By: Scott Steele on 08-23-2023 Lymphocytes/100 WBC Auto (Unsp spec) 24.7 % 19-41 [facility] Basophil percentageOrdered B y: Scott Steele on 08-23-2023 Basophil percentage 0 SEEN /hpf 0-5 [facility] Basophils/100 WBC (Bld) 1.0 % 0-1 [facility] Bilirubin [Mass/Vol] 0.50 mg/dL 0.20-1.00 [facility] Comment on above: For patients on eltr ombopag therapy, use of Dimension [place] TBIL is not recommended. Chloride [Moles/Vol] 102 mmol/L 98-107 [facility] Cholesterol [Mass/Vol] 151 mg/dL <200 [facility] Comment on above: <200 mg/dL Desirable 200-240 mg/dL Borderline >240 mg/dL High Risk Eosinophils/100 WBC (Bld) 1.6 % 0-5 [facility] Glucose [Mass/Vol] 110 mg/dL 74-106 [facility] Comment on above: Fasting Glucose resu lt from 100 to 125 mg/dL suggests IMPAIRED HOMEOSTASIS per A.D.A. criteria. Hemoglobin (Bld) [Mass/Vol] 13.5 g/dL 12.0-15.0 [facility] Monocytes/100 WBC (Bld) 8.6 % 0-10 [facility] Neutrophils (Bld) [#/Vol] 5.5 10*3/uL 2.0-7.7 [facility] Neutrophils/100 WBC (Bld) 63.6 % 47-70 [facility] Potassium [Moles/Vol] 4.3 mmol/L 3.5-5.1 [facility] Protein [Mass/Vol] 8.1 g/dL 6.4-8.2 [facility] Sodium [Moles/Vol] 136 mmol/L 136-145 [facility] Triglyceride [Mass/Vol] 101 mg/dL <199 [facility] Comment on above: The drugs N-Acetylcy steine and Metamizole may falsely depress this assay.Serum Triglycerides Reference Interval Normal <150 mg/dL Borderline high 150 - 199 mg/dL High 200 - 499 mg/dL Very High > or = 500 mg/dL WBC (Bld) [#/Vol] 8.6 10*3/uL 4.4-11.0 [facility] Bilirubin Test strip Ql (U)O rdered By: Scott Steele on 08-23-2023 Bilirubin Ql (U) Negative Negative [facility] Determination of erythrocyte mean corpuscular volume (MCV)Ordered By: Scott Steele on 08-23-2023 MCV (RBC) [Entitic vol] 89.0 fL 81-99 [facility] Erythrocyte distribution wid th ratioOrdered By: Scott Steele on 08-23-2023 Erythrocyte distribution width (RBC) [Ratio] 14.2 % 11.6-14.6 [facility] Erythrocyte distribution wid th standard deviationOrdered By: Scott Steele on 08-23-2023 Erythrocyte distribution width (RBC) [Entitic vol] 45.9 fL 35.1-43.9 [facility] Hematocrit Auto (Bld) [Volum e fraction]Ordered By: Scott Steele on 08-23-2023 Hematocrit (Bld) [Volume fraction] 41.9 % 37-47 [facility] Immature granulocytes/100 WB C Auto (Bld)Ordered By: Scott Steele on 08-23-2023 Immature granulocytes/100 WBC (Bld) 0.500 % 0.0-0.9 [facility] Comment on above: IG% - Immature Granu locytes (promyelocytes, myelocytes and metamyelocytes) > 1% indicates that a LEFT SHIFT is Present. Iron measurement (mass/mass) Ordered By: Scott Steele on 08-23-2023 Iron (Unsp spec) [Mass/Mass] 62 ug/dL 50-170 [facility] Ketones Test strip Ql (U)Ord ered By: Scott Steele on 08-23-2023 Ketones Ql (U) Negative Negative [facility] - Chemistry and C hemistry - challengeOrdered By: Scott Steele on 08-23-2023 Albumin/Globulin [Mass ratio] 1.0 {ratio} 0.9-2.4 [facility] ALP [Catalytic activity/Vol] 36 U/L 45-117 [facility] ALT [Catalytic activity/Vol] 22 U/L 13-56 [facility] Cholesterol in HDL [Mass/Vol] 66 mg/dL >40 [facility] Comment on above: The drugs N-Acetylcy steine and Metamizole may falsely depress this assay. Reference Range HDL <40 mg/dL Low HDL Cholesterol HDL >or= 60 mg/dL High HDL Cholesterol Cholesterol in LDL [Mass/Vol] 65 mg/dL 0-130 [facility] CO2 [Moles/Vol] 28.0 mmol/L 21.0-32.0 [facility] Cobalamin (Vitamin B12) [Mass/Vol] 288 pg/mL 211-911 [facility] Ferritin [Mass/Vol] 23 ng/mL 8-252 [facility] Globulin (S) [Mass/Vol] 4.0 g/dL 2.2-4.2 [facility] Urea nitrogen/Creatinine [Mass ratio] 21.5 mg/mg 10-20 [facility] - Hematology and Cell countsOrdered By: Scott Steele on 08-23-2023 MCH (RBC) [Entitic mass] 28.7 pg 27.0-32.0 [facility] MCHC (RBC) [Mass/Vol] 32.2 g/dL 32-36 [facility] Nucleated RBC/100 WBC (Bld) [Ratio] 0 % 0-5 [facility] Platelet mean volume (Bld) [Entitic vol] 12.2 fL 6.2-12.0 [facility] Platelets (Bld) [#/Vol] 231 10*3/uL 150-450 [facility] Mucus LM Ql (Urine sed)Order ed By: Scott Steele on 08-23-2023 Mucus Ql (Urine sed) 0 SEEN /hpf [facility] Nitrite Test strip Ql (U)Ord ered By: Scott Steele on 08-23-2023 Nitrite Ql (U) Negative Negative [facility] No Panel InformationOrdered By: Scott Steele on 08-23-2023 Estimated GFR (MDRD) Amer 78 mL/min >60 [facility] Comment on above: GFR Calc Estimated GFR (MDRD) Non-Af Amer 64 mL/min >60 [facility] Comment on above: Non- GFR Calc Total Iron Binding Capacity 373 ug/dL 250-450 [facility] Urine RBC 0 SEEN /hpf 0-5 [facility] Vitamin D 25-Hydroxy 70.6 ng/mL [facility] Comment on above: Vitamin D 25(OH) Sta tus Range Deficiency <20 ng/mL (50nmol/L) Insufficiency 20 - 30 ng/mL (50 - 75 nmol/L) Sufficiency 30 - 100 ng/mL (75 - 250 nmol/L) Toxicity >100 ng/mL (>250 nmol/L) VLDL Cholesterol 20 mg/dL 5-40 [facility] Protein Test strip Ql (U)Ord ered By: Scott Steele on 08-23-2023 Protein Ql (U) Negative Negative [facility] RBC Auto (Bld) [#/Vol]Ordere d By: Scott Steele on 08-23-2023 RBC (Bld) [#/Vol] 4.71 10*6/uL 4.2-5.4 [facility] Serum or plasma calcium charlotte urement (mass/volume)Ordered By: Scott Steele on 08-23-2023 Calcium [Mass/Vol] 10.0 mg/dL 8.5-10.1 [facility] Serum or plasma creatinine m easurement (mass/volume)Ordered By: Scott Steele on 08-23-2023 Creatinine [Mass/Vol] 0.93 mg/dL 0.55-1.02 [facility] Comment on above: The validity of the calculated GFR & GFRAA in patients over 70 years has not been determined. Clinical correlation is essential. Serum or plasma urea nitroge n measurement (mass/volume)Ordered By: Scott Steele on 08-23-2023 Urea nitrogen [Mass/Vol] 20 mg/dL 7-18 [facility] Squamous epithelial cells de tection in urine sediment by light microscopyOrdered By: Scott Steele on 08-23-2023 Epithelial cells.squamous LM Ql (Urine sed) 0-5 SEEN /hpf 5-10 [facility] Thin prep Papanicolaou smear with manual screeningOrdered By: Scott Steele on 08-23-2023 Thin prep Papanicolaou smear with manual screening < 6.0 mg/dL 0.0-11.8 [facility] Thin prep Papanicolaou smear with manual screening 4.1 g/dL 3.2-5.0 [facility] Thin prep Papanicolaou smear with manual screening 21 U/L 15-37 [facility] Thin prep Papanicolaou smear with manual screening 6 5-15 [facility] Urine blood detectionOrdered By: Scott Steele on 08-23-2023 RBC Ql (U) Negative Negative [facility] Urine clarityOrdered By: Syed Steele on 08-23-2023 Clarity (U) Clear Clear [facility] Urine color determinationOrd ered By: Scott Steele on 08-23-2023 Color (U) Straw Yellow [facility] Urine creatinine measurement (mass/volume)Ordered By: Scott Steele on 08-23-2023 Creatinine (U) [Mass/Vol] mg/dL NO RANGE EST. [facility] Urine glucose detectionOrder ed By: Scott Steele on 08-23-2023 Glucose Ql (U) 1000 mg/dl Normal [facility] Urine leukocyte esterase det ection by dipstickOrdered By: Scott Steele on 08-23-2023 Leukocyte esterase Test strip Ql (U) Negative Negative [facility] Urine pHOrdered By: Scott carter on 08-23-2023 pH (U) 7.0 [pH] 5.0 - 8.0 [facility] Urine protein/creatinine mas s ratioOrdered By: Scott Steele on 08-23-2023 Protein/Creatinine (U) [Mass ratio] TNP [facility] Comment on above: Test not performed Urine sediment bacteria coun t by microscopy (number/high power field)Ordered By: Scott Steele on 08-23-2023 Bacteria LM.HPF (Urine sed) [#/Area] 0 /[HPF] None Seen [facility] Urine specific gravity measu rementOrdered By: Scott Steele on 08-23-2023 Specific gravity (U) [Rel density] 1.005 1.002-1.030 [facility] Urine urobilinogen measureme ntOrdered By: Scott Steele on 08-23-2023 Urobilinogen Ql (U) Normal mg/dl Normal [facility] Whole blood hemoglobin A1c/t otal hemoglobin ratio (mass fraction)Ordered By: Scott Steele on 08-23-2023 HbA1c (Bld) [Mass fraction] 5.7 % 3.8-5.6 [facility] Comment on above: Normal < 5.7 % Predi abetic 5.7 - 6.4 % Diabetic >or= 6.5 % Please note range changes. Absolute lymphocyte countOrd ered By: Scott Escobarannetta on 04-21-2023 Lymphocytes Auto (Unsp spec) [#/Vol] 1.90 10*3/uL 0.83-4.51 [facility] Basophil percentageOrdered B y: Scott Jarquinraul on 04-21-2023 Basophil percentage 0 SEEN /hpf 0-5 [facility] Basophil percentage 4.0 mg/dL 2.5-4.9 [facility] Basophils/100 WBC (Bld) 0.8 % 0-1 [facility] Bilirubin [Mass/Vol] 0.40 mg/dL 0.20-1.00 [facility] Comment on above: For patients on eltr ombopag therapy, use of Dimension [place] TBIL is not recommended. Chloride [Moles/Vol] 102 mmol/L 98-107 [facility] Cholesterol [Mass/Vol] 134 mg/dL <200 [facility] Comment on above: <200 mg/dL Desirable 200-240 mg/dL Borderline >240 mg/dL High Risk Eosinophils/100 WBC (Bld) 1.2 % 0-5 [facility] Glucose [Mass/Vol] 109 mg/dL 74-106 [facility] Comment on above: Fasting Glucose resu lt from 100 to 125 mg/dL suggests IMPAIRED HOMEOSTASIS per A.D.A. criteria. Neutrophils (Bld) [#/Vol] 5.9 10*3/uL 2.0-7.7 [facility] Neutrophils/100 WBC (Bld) 68.6 % 47-70 [facility] Potassium [Moles/Vol] 4.1 mmol/L 3.5-5.1 [facility] Protein [Mass/Vol] 8.0 g/dL 6.4-8.2 [facility] Sodium [Moles/Vol] 136 mmol/L 136-145 [facility] Triglyceride [Mass/Vol] 108 mg/dL <199 [facility] Comment on above: The drugs N-Acetylcy steine and Metamizole may falsely depress this assay.Serum Triglycerides Reference Interval Normal <150 mg/dL Borderline high 150 - 199 mg/dL High 200 - 499 mg/dL Very High > or = 500 mg/dL WBC (Bld) [#/Vol] 8.7 10*3/uL 4.4-11.0 [facility] Bilirubin Test strip Ql (U)O rdered By: Scott Steele on 04-21-2023 Bilirubin Ql (U) Negative Negative [facility] Blood erythrocytes count (nu mber/volume)Ordered By: Scott Setele on 04-21-2023 RBC (Bld) [#/Vol] 4.68 10*6/uL 4.2-5.4 [facility] Blood hemoglobin measurement (mass/volume)Ordered By: Scott Steele on 04-21-2023 Hemoglobin (Bld) [Mass/Vol] 13.2 g/dL 12.0-15.0 [facility] Blood lymphocytes/100 leukoc ytesOrdered By: Scott Steele on 04-21-2023 Lymphocytes/100 WBC (Bld) 22.0 % 19-41 [facility] Blood monocytes/100 leukocyt esOrdered By: Scott Steele on 04-21-2023 Monocytes/100 WBC (Bld) 7.1 % 0-10 [facility] Blood platelet mean volumeOr dered By: Scott Steele on 04-21-2023 Platelet mean volume (Bld) [Entitic vol] 10.8 fL 6.2-12.0 [facility] Determination of erythrocyte mean corpuscular volume (MCV)Ordered By: Scott Steele on 04-21-2023 MCV (RBC) [Entitic vol] 88.0 fL 81-99 [facility] Hematocrit Auto (Bld) [Volum e fraction]Ordered By: Scott Steele on 04-21-2023 Hematocrit (Bld) [Volume fraction] 41.2 % 37-47 [facility] Iron measurement (mass/mass) Ordered By: Scott Steele on 04-21-2023 Iron (Unsp spec) [Mass/Mass] 49 ug/dL 50-170 [facility] Ketones Test strip Ql (U)Ord ered By: Scott Steele on 04-21-2023 Ketones Ql (U) Negative Negative [facility] - Chemistry and C hemistry - challengeOrdered By: Scott Steele on 04-21-2023 ALP [Catalytic activity/Vol] 34 U/L 45-117 [facility] ALT [Catalytic activity/Vol] 23 U/L 13-56 [facility] CO2 [Moles/Vol] 26.0 mmol/L 21.0-32.0 [facility] Cobalamin (Vitamin B12) [Mass/Vol] 252 pg/mL 211-911 [facility] Globulin (S) [Mass/Vol] 4.1 g/dL 2.2-4.2 [facility] Urea nitrogen/Creatinine [Mass ratio] 26.4 mg/mg 10-20 [facility] - Hematology and Cell countsOrdered By: Scott Steele on 04-21-2023 Erythrocyte distribution width (RBC) [Entitic vol] 47.7 fL 35.1-43.9 [facility] Erythrocyte distribution width (RBC) [Ratio] 15.0 % 11.6-14.6 [facility] Immature granulocytes/100 WBC (Bld) 0.300 % 0.0-0.9 [facility] Comment on above: IG% - Immature Granu locytes (promyelocytes, myelocytes and metamyelocytes) > 1% indicates that a LEFT SHIFT is Present. MCH (RBC) [Entitic mass] 28.2 pg 27.0-32.0 [facility] Nucleated RBC/100 WBC (Bld) [Ratio] 0 % 0-5 [facility] MCHC Auto (RBC) [Mass/Vol]Or dered By: Scott Steele on 04-21-2023 MCHC (RBC) [Mass/Vol] 32.0 g/dL 32-36 [facility] Mucus LM Ql (Urine sed)Order ed By: Scott Steele on 04-21-2023 Mucus Ql (Urine sed) 0 SEEN /hpf [facility] Nitrite Test strip Ql (U)Ord ered By: Scott Steele on 04-21-2023 Nitrite Ql (U) Negative Negative [facility] No Panel InformationOrdered By: Kiara Pearce on 04-21-2023 Hepatitis B Core IgM Antibody Negative Negative [facility] Comment on above: Performed at: [address] [id number] Director: Han Das PhD, Phone: [phone] Hepatitis B Surface Antigen Non-Reactive Nonreactive [facility] No Panel InformationOrdered By: Scott Steele on 04-21-2023 Estimated GFR (MDRD) Amer 84 mL/min >60 [facility] Comment on above: GFR Calc Estimated GFR (MDRD) Non-Af Amer 69 mL/min >60 [facility] Comment on above: Non- GFR Calc Total Iron Binding Capacity 329 ug/dL 250-450 [facility] Urine Microalbumin/Creatinine Ratio 19.7 mg/g CRE <30 [facility] Vitamin D 25-Hydroxy 66.6 ng/mL [facility] Comment on above: Vitamin D 25(OH) Sta tus Range Deficiency <20 ng/mL (50nmol/L) Insufficiency 20 - 30 ng/mL (50 - 75 nmol/L) Sufficiency 30 - 100 ng/mL (75 - 250 nmol/L) Toxicity >100 ng/mL (>250 nmol/L) Platelets bldOrdered By: Syed Steele on 04-21-2023 Platelets (Bld) [#/Vol] 300 10*3/uL 150-450 [facility] Protein Test strip Ql (U)Ord ered By: Scott Steele on 04-21-2023 Protein Ql (U) Negative Negative [facility] Serum hepatitis B virus core antibody detectionOrdered By: Kiara Pearce on 04-21-2023 HBV core Ab Ql (S) Negative Negative [facility] Serum hepatitis B virus surf ladonna antibody IgG detectionOrdered By: Kiara Pearce on 04-21-2023 HBV surface IgG Ql (S) Non-Reactive [facility] Comment on above: Non Reactive: Incons istent with immunity less than <10 mIU/mL Reactive: Consistent with immunity greater than or equal to 10 mIU/mL Serum or plasma albumin charlotte urement (mass/volume)Ordered By: Scott Steele on 04-21-2023 Albumin [Mass/Vol] 3.9 g/dL 3.2-5.0 [facility] Serum or plasma albumin/glob ulin mass ratioOrdered By: Scott Steele on 04-21-2023 Albumin/Globulin [Mass ratio] 1.0 {ratio} 0.9-2.4 [facility] Serum or plasma calcium charlotte urement (mass/volume)Ordered By: Scott Steele on 04-21-2023 Calcium [Mass/Vol] 10.0 mg/dL 8.5-10.1 [facility] Serum or plasma cholesterol in HDL measurement (mass/volume)Ordered By: Scott Steele on 04-21-2023 Cholesterol in HDL [Mass/Vol] 57 mg/dL >40 [facility] Comment on above: The drugs N-Acetylcy steine and Metamizole may falsely depress this assay. Reference Range HDL <40 mg/dL Low HDL Cholesterol HDL >or= 60 mg/dL High HDL Cholesterol Serum or plasma cholesterol in VLDL measurement (mass/volume)Ordered By: Scott Steele on 04-21-2023 Cholesterol in VLDL [Mass/Vol] 22 mg/dL 5-40 [facility] Serum or plasma creatinine m easurement (mass/volume)Ordered By: Scott Steele on 04-21-2023 Creatinine [Mass/Vol] 0.87 mg/dL 0.55-1.02 [facility] Comment on above: The validity of the calculated GFR & GFRAA in patients over 70 years has not been determined. Clinical correlation is essential. Serum or plasma ferritin mitzy surement (mass/volume)Ordered By: Scott Steele on 04-21-2023 Ferritin [Mass/Vol] 23 ng/mL 8-252 [facility] Serum or plasma folate measu rement (mass/volume)Ordered By: Scott Steele on 04-21-2023 Folate [Mass/Vol] 29.10 ng/mL 3.1-55.4 [facility] Serum or plasma low density lipoprotein (LDL) cholesterol measurement (mass/volume)Ordered By: Scott Steele on 04-21-2023 Cholesterol in LDL [Mass/Vol] 55 mg/dL 0-130 [facility] Serum or plasma urea nitroge n measurement (mass/volume)Ordered By: Scott Steele on 04-21-2023 Urea nitrogen [Mass/Vol] 23 mg/dL 7-18 [facility] Squamous epithelial cells de tection in urine sediment by light microscopyOrdered By: Scott Steele on 04-21-2023 Epithelial cells.squamous LM Ql (Urine sed) 0 SEEN /hpf 5-10 [facility] Thin prep Papanicolaou smear with manual screeningOrdered By: Scott Steele on 04-21-2023 Thin prep Papanicolaou smear with manual screening 17 U/L 15-37 [facility] Thin prep Papanicolaou smear with manual screening 8 5-15 [facility] Thin prep Papanicolaou smear with manual screening 10.1 mg/L NO RANGE EST. [facility] Urine blood detectionOrdered By: Scott Steele on 04-21-2023 RBC Ql (U) Negative Negative [facility] RBC Ql (U) 0 SEEN /hpf 0-5 [facility] Urine clarityOrdered By: Syed Steele on 04-21-2023 Clarity (U) Clear Clear [facility] Urine color determinationOrd ered By: Scott Steele on 04-21-2023 Color (U) Yellow Yellow [facility] Urine creatinine measurement (mass/volume)Ordered By: Scott Steele on 04-21-2023 Creatinine (U) [Mass/Vol] 51.20 mg/dL NO RANGE EST. [facility] Urine glucose detectionOrder ed By: Scott Steele on 04-21-2023 Glucose Ql (U) 1000 mg/dl Normal [facility] Urine leukocyte esterase det ection by dipstickOrdered By: Scott Steele on 04-21-2023 Leukocyte esterase Test strip Ql (U) Negative Negative [facility] Urine pHOrdered By: Scott carter on 04-21-2023 pH (U) 5.0 [pH] 5.0 - 8.0 [facility] Urine protein measurement (m ass/volume)Ordered By: Scott Steele on 04-21-2023 Protein (U) [Mass/Vol] mg/dL 0.0-11.8 [facility] Urine protein/creatinine mas s ratioOrdered By: Scott Steele on 04-21-2023 Protein/Creatinine (U) [Mass ratio] 100 mg/g CRE 0-200 [facility] Urine sediment bacteria coun t by microscopy (number/high power field)Ordered By: Scott Steele on 04-21-2023 Bacteria LM.HPF (Urine sed) [#/Area] 0 /[HPF] None Seen [facility] Urine specific gravity measu rementOrdered By: Scott Steele on 04-21-2023 Specific gravity (U) [Rel density] 1.015 1.002-1.030 [facility] Urobilinogen Auto test strip Ql (U)Ordered By: Scott Steele on 04-21-2023 Urobilinogen Ql (U) Normal mg/dl Normal [facility] Whole blood hemoglobin A1c/t otal hemoglobin ratio (mass fraction)Ordered By: Scott Steele on 04-21-2023 HbA1c (Bld) [Mass fraction] 5.8 % 3.8-5.6 [facility] Comment on above: Normal < 5.7 % Predi abetic 5.7 - 6.4 % Diabetic >or= 6.5 % Please note range changes. Basophil percentageOrdered B y: Kiara Pearce on 03-21-2023 Cholesterol [Mass/Vol] 137 mg/dL <200 [facility] Comment on above: <200 mg/dL Desirable 200-240 mg/dL Borderline >240 mg/dL High Risk Triglyceride [Mass/Vol] 95 mg/dL <199 [facility] Comment on above: The drugs N-Acetylcy steine and Metamizole may falsely depress this assay.Serum Triglycerides Reference Interval Normal <150 mg/dL Borderline high 150 - 199 mg/dL High 200 - 499 mg/dL Very High > or = 500 mg/dL Mitotic spindle apparatus Ab [Titer] in Serum or PlasmaOrdered By: Kiara Pearce on 03-21-2023 Mitotic spindle apparatus Ab [Titer] Not Reportable [facility] No Panel InformationOrdered By: Kiara Pearce on 03-21-2023 CHRISSY Nuclear Membrane Pattern Not Reportable [facility] Hepatitis A IgM Antibody Negative Negative [facility] Comment on above: Performed at: [facility] [facility] [address] [id number] Director: Han Das PhD, Phone: [phone] at: [facility] [id number] Director: Melissa Benavides MD, Phone: [phone] Hepatitis C Antibody Non-Reactive Nonreactive [facility] Comment on above: Non Reactive: < 0.8 Equivocal: >/= 0.8 to < 1.0 Reactive: >/= 1.0The CDC recommends that a reactive/equivocal HCV antibody result be followed up by the HCV Nucleic Acid Amplificationtest (045989) Immunoglobulin E 30 IU/mL 6-495 [facility] Serum hepatitis B virus core antibody detectionOrdered By: Kiara Pearce on 03-21-2023 HBV core Ab Ql (S) Negative Negative [facility] Serum midbody antibody titer by immunofluorescenceOrdered By: Kiara Pearce on 03-21-2023 Midbody Ab IF (S) [Titer] Not Reportable [facility] Serum multiple nuclear dot p attern antinuclear IgG antibody (CHRISSY) titer by immunofluoOrdered By: Kiara Pearce on 03-21-2023 Multiple nuclear dots nuclear IgG pattern IF (S) [Titer] Not Reportable [facility] Serum neuronal nuclear antib hugo detection by immunofluorescenceOrdered By: Kiara Pearce on 03-21-2023 Neuronal nuclear Ab IF Ql (S) Not Reportable [facility] Serum nuclear antibody patte rn homogenous titer by immunofluorescenceOrdered By: Kiara Pearce on 03-21-2023 Homogenous nuclear Ab pattern IF (S) [Titer] Not Reportable [facility] Serum nuclear antibody titer by immunofluorescenceOrdered By: Kiara Pearce on 03-21-2023 Nuclear Ab IF (S) [Titer] Negative . [facility] Comment on above: Negative <1:80 Borde rline 1:80 Positive >1:80ICAP nomenclature: [id number] more information about Hep-2 cell patterns useANApatterns.org, the official website for theInternational Consensus on Antinuclear Antibody (CHRISSY)Patterns (ICAP).Performed at: [address] [id number] Director: Han Das PhD, Phone: [phone] Serum or plasma IgA measurem ent (mass/volume)Ordered By: Kiara Pearce on 03-21-2023 IgA [Mass/Vol] 199 mg/dL 87-352 [facility] Serum or plasma IgG measurem ent (mass/volume)Ordered By: Kiara Pearce on 03-21-2023 IgG [Mass/Vol] 806 mg/dL [id number] [facility] Serum or plasma IgM measurem ent (mass/volume)Ordered By: Kiara Pearce on 03-21-2023 IgM [Mass/Vol] 584 mg/dL 26-217 [facility] Serum or plasma cholesterol in HDL measurement (mass/volume)Ordered By: Kiara Pearce on 03-21-2023 Cholesterol in HDL [Mass/Vol] 54 mg/dL >40 [facility] Comment on above: The drugs N-Acetylcy steine and Metamizole may falsely depress this assay. Reference Range HDL <40 mg/dL Low HDL Cholesterol HDL >or= 60 mg/dL High HDL Cholesterol Serum or plasma cholesterol in VLDL measurement (mass/volume)Ordered By: Kiara Pearce on 03-21-2023 Cholesterol in VLDL [Mass/Vol] 19 mg/dL 5-40 [facility] Serum or plasma low density lipoprotein (LDL) cholesterol measurement (mass/volume)Ordered By: Kiara Pearce on 03-21-2023 Cholesterol in LDL [Mass/Vol] 64 mg/dL 0-130 [facility] Serum or plasma thyroperoxid ase antibody assay (units/volume)Ordered By: Kiara Pearce on 03-21-2023 TPO Ab Qn 10 [IU]/mL 0-34 [facility] Serum proliferating cell nuc lear antigen (PCNA) antibody titer by immunofluorescenceOrdered By: Kiara Pearce on 03-21-2023 PCNA extractable nuclear Ab IF (S) [Titer] Not Reportable [facility] Serum rheumatoid factor dete ctionOrdered By: Kiara Pearce on 03-21-2023 Rheumatoid factor Ql (S) < 10.0 IU/mL <15 [facility] Serum speckled nuclear antib hugo pattern titerOrdered By: Kiara Pearce on 03-21-2023 Speckled nuclear Ab pattern (S) [Titer] Not Reportable [facility] Thin prep Papanicolaou smear with manual screeningOrdered By: Kiara Pearce on 03-21-2023 Thin prep Papanicolaou smear with manual screening Not Reportable [facility] Whole blood hemoglobin A1c/t otal hemoglobin ratio (mass fraction)Ordered By: Kiara Pearce on 03-21-2023 HbA1c (Bld) [Mass fraction] 5.6 % 3.8-5.6 [facility] Comment on above: Normal < 5.7 % Predi abetic 5.7 - 6.4 % Diabetic >or= 6.5 % Please note range changes. Absolute lymphocyte countOrd ered By: Scott Steele on 12-16-2022 Lymphocytes Auto (Unsp spec) [#/Vol] 2.18 10*3/uL 0.83-4.51 [facility] Basophil percentageOrdered B y: Scott Steele on 12-16-2022 Basophil percentage 0 SEEN /hpf 0-5 [facility] Basophil percentage 3.9 mg/dL 2.5-4.9 [facility] Basophils/100 WBC (Bld) 0.6 % 0-1 [facility] Bilirubin [Mass/Vol] 0.40 mg/dL 0.20-1.00 [facility] Comment on above: For patients on eltr ombopag therapy, use of Dim[place] TBIL is not recommended. Chloride [Moles/Vol] 103 mmol/L 98-107 [facility] Cholesterol [Mass/Vol] 143 mg/dL <200 [facility] Comment on above: <200 mg/dL Desirable 200-240 mg/dL Borderline >240 mg/dL High Risk Eosinophils/100 WBC (Bld) 1.3 % 0-5 [facility] Glucose [Mass/Vol] 101 mg/dL 74-106 [facility] Comment on above: Fasting Glucose resu lt from 100 to 125 mg/dL suggests IMPAIRED HOMEOSTASIS per A.D.A. criteria. Neutrophils (Bld) [#/Vol] 5.5 10*3/uL 2.0-7.7 [facility] Neutrophils/100 WBC (Bld) 64.6 % 47-70 [facility] Potassium [Moles/Vol] 4.4 mmol/L 3.5-5.1 [facility] Protein [Mass/Vol] 8.0 g/dL 6.4-8.2 [facility] Sodium [Moles/Vol] 137 mmol/L 136-145 [facility] Triglyceride [Mass/Vol] 157 mg/dL <199 [facility] Comment on above: The drugs N-Acetylcy steine and Metamizole may falsely depress this assay.Serum Triglycerides Reference Interval Normal <150 mg/dL Borderline high 150 - 199 mg/dL High 200 - 499 mg/dL Very High > or = 500 mg/dL WBC (Bld) [#/Vol] 8.4 10*3/uL 4.4-11.0 [facility] Bilirubin Test strip Ql (U)O rdered By: Scott Steele on 12-16-2022 Bilirubin Ql (U) Negative Negative [facility] Blood erythrocytes count (nu mber/volume)Ordered By: Scott Steele on 12-16-2022 RBC (Bld) [#/Vol] 4.68 10*6/uL 4.2-5.4 [facility] Blood hemoglobin measurement (mass/volume)Ordered By: Scott Steele on 12-16-2022 Hemoglobin (Bld) [Mass/Vol] 12.7 g/dL 12.0-15.0 [facility] Blood lymphocytes/100 leukoc ytesOrdered By: Scott Steele on 12-16-2022 Lymphocytes/100 WBC (Bld) 25.9 % 19-41 [facility] Blood monocytes/100 leukocyt esOrdered By: Scott Steele on 12-16-2022 Monocytes/100 WBC (Bld) 7.2 % 0-10 [facility] Blood platelet mean volumeOr dered By: Scott Steele on 12-16-2022 Platelet mean volume (Bld) [Entitic vol] 11.7 fL 6.2-12.0 [facility] Determination of erythrocyte mean corpuscular volume (MCV)Ordered By: Scott Steele on 12-16-2022 MCV (RBC) [Entitic vol] 87.2 fL 81-99 [facility] Hematocrit Auto (Bld) [Volum e fraction]Ordered By: Scott Steele on 12-16-2022 Hematocrit (Bld) [Volume fraction] 40.8 % 37-47 [facility] Iron measurement (mass/mass) Ordered By: Scott Steele on 12-16-2022 Iron (Unsp spec) [Mass/Mass] 38 ug/dL 50-170 [facility] Ketones Test strip Ql (U)Ord ered By: Scott Steele on 12-16-2022 Ketones Ql (U) Negative Negative [facility] - Chemistry and C hemistry - challengeOrdered By: Scott Steele on 12-16-2022 ALP [Catalytic activity/Vol] 41 U/L 45-117 [facility] ALT [Catalytic activity/Vol] 26 U/L 13-56 [facility] CO2 [Moles/Vol] 27.0 mmol/L 21.0-32.0 [facility] Cobalamin (Vitamin B12) [Mass/Vol] 289 pg/mL 211-911 [facility] Globulin (S) [Mass/Vol] 4.0 g/dL 2.2-4.2 [facility] Urea nitrogen/Creatinine [Mass ratio] 22.2 mg/mg 10-20 [facility] - Hematology and Cell countsOrdered By: Scott Steele on 12-16-2022 Erythrocyte distribution width (RBC) [Entitic vol] 50.5 fL 35.1-43.9 [facility] Erythrocyte distribution width (RBC) [Ratio] 16.0 % 11.6-14.6 [facility] Immature granulocytes/100 WBC (Bld) 0.400 % 0.0-0.9 [facility] Comment on above: IG% - Immature Granu locytes (promyelocytes, myelocytes and metamyelocytes) > 1% indicates that a LEFT SHIFT is Present. MCH (RBC) [Entitic mass] 27.1 pg 27.0-32.0 [facility] Nucleated RBC/100 WBC (Bld) [Ratio] 0 % 0-5 [facility] MCHC Auto (RBC) [Mass/Vol]Or dered By: Scott Steele on 12-16-2022 MCHC (RBC) [Mass/Vol] 31.1 g/dL 32-36 [facility] Mucus LM Ql (Urine sed)Order ed By: Scott Steele on 12-16-2022 Mucus Ql (Urine sed) 0 SEEN /hpf [facility] Nitrite Test strip Ql (U)Ord ered By: Scott Steele on 12-16-2022 Nitrite Ql (U) Negative Negative [facility] No Panel InformationOrdered By: Scott Steele on 12-16-2022 Estimated GFR (MDRD) Amer 81 mL/min >60 [facility] Comment on above: GFR Calc Estimated GFR (MDRD) Non-Af Amer 67 mL/min >60 [facility] Comment on above: Non- GFR Calc Total Iron Binding Capacity 360 ug/dL 250-450 [facility] Urine Microalbumin/Creatinine Ratio 12.9 mg/g CRE <30 [facility] Vitamin D 25-Hydroxy 67.9 ng/mL [facility] Comment on above: Vitamin D 25(OH) Sta tus Range Deficiency <20 ng/mL (50nmol/L) Insufficiency 20 - 30 ng/mL (50 - 75 nmol/L) Sufficiency 30 - 100 ng/mL (75 - 250 nmol/L) Toxicity >100 ng/mL (>250 nmol/L) Platelets bldOrdered By: Syed Steele on 12-16-2022 Platelets (Bld) [#/Vol] 325 10*3/uL 150-450 [facility] Protein Test strip Ql (U)Ord ered By: Scott Steele on 12-16-2022 Protein Ql (U) Negative Negative [facility] Serum or plasma albumin [place] urement (mass/volume)Ordered By: Scott Steele on 12-16-2022 Albumin [Mass/Vol] 4.0 g/dL 3.2-5.0 [facility] Serum or plasma albumin/glob ulin mass ratioOrdered By: Scott Steele on 12-16-2022 Albumin/Globulin [Mass ratio] 1.0 {ratio} 0.9-2.4 [facility] Serum or plasma calcium charlotte urement (mass/volume)Ordered By: Scott Steele on 12-16-2022 Calcium [Mass/Vol] 9.7 mg/dL 8.5-10.1 [facility] Serum or plasma cholesterol in HDL measurement (mass/volume)Ordered By: Scott Steele on 12-16-2022 Cholesterol in HDL [Mass/Vol] 54 mg/dL >40 [facility] Comment on above: The drugs N-Acetylcy steine and Metamizole may falsely depress this assay. Reference Range HDL <40 mg/dL Low HDL Cholesterol HDL >or= 60 mg/dL High HDL Cholesterol Serum or plasma cholesterol in VLDL measurement (mass/volume)Ordered By: Scott Steele on 12-16-2022 Cholesterol in VLDL [Mass/Vol] 31 mg/dL 5-40 [facility] Serum or plasma creatinine m easurement (mass/volume)Ordered By: Scott Steele on 12-16-2022 Creatinine [Mass/Vol] 0.90 mg/dL 0.55-1.02 [facility] Comment on above: The validity of the calculated GFR & GFRAA in patients over 70 years has not been determined. Clinical correlation is essential. Serum or plasma ferritin mitzy surement (mass/volume)Ordered By: Scott Steele on 12-16-2022 Ferritin [Mass/Vol] 17 ng/mL 8-252 [facility] Serum or plasma folate measu rement (mass/volume)Ordered By: Scott Steele on 12-16-2022 Folate [Mass/Vol] 25.90 ng/mL 3.1-55.4 [facility] Serum or plasma low density lipoprotein (LDL) cholesterol measurement (mass/volume)Ordered By: Scott Steele on 12-16-2022 Cholesterol in LDL [Mass/Vol] 58 mg/dL 0-130 [facility] Serum or plasma urea nitroge n measurement (mass/volume)Ordered By: Scott Steele on 12-16-2022 Urea nitrogen [Mass/Vol] 20 mg/dL 7-18 [facility] Squamous epithelial cells de tection in urine sediment by light microscopyOrdered By: Scott Steele on 12-16-2022 Epithelial cells.squamous LM Ql (Urine sed) 0-5 SEEN /hpf 5-10 [facility] Thin prep Papanicolaou smear with manual screeningOrdered By: Scott Steele on 12-16-2022 Thin prep Papanicolaou smear with manual screening 20 U/L 15-37 [facility] Thin prep Papanicolaou smear with manual screening 7 5-15 [facility] Thin prep Papanicolaou smear with manual screening 9.0 mg/L NO RANGE EST. [facility] Urine blood detectionOrdered By: Scott Steele on 12-16-2022 RBC Ql (U) Negative Negative [facility] RBC Ql (U) 0 SEEN /hpf 0-5 [facility] Urine clarityOrdered By: Syed Steele on 12-16-2022 Clarity (U) Clear Clear [facility] Urine color determinationOrd ered By: Scott Steele on 12-16-2022 Color (U) Yellow Yellow [facility] Urine creatinine measurement (mass/volume)Ordered By: Scott Steele on 07-28-2023 Creatinine (U) [Mass/Vol] 69.80 mg/dL NO RANGE EST. [facility] Urine glucose detectionOrder ed By: Scott Steele on 12-16-2022 Glucose Ql (U) 1000 mg/dl Normal [facility] Urine leukocyte esterase det ection by dipstickOrdered By: Scott Steele on 12-16-2022 Leukocyte esterase Test strip Ql (U) Negative Negative [facility] Urine pHOrdered By: Scott carter on 12-16-2022 pH (U) 5.0 [pH] 5.0 - 8.0 [facility] Urine protein measurement (m ass/volume)Ordered By: Scott Steele on 12-16-2022 Protein (U) [Mass/Vol] mg/dL 0.0-11.8 [facility] Urine protein/creatinine mas s ratioOrdered By: Scott Steele on 12-16-2022 Protein/Creatinine (U) [Mass ratio] TNP [facility] Comment on above: Test not performed Urine sediment bacteria coun t by microscopy (number/high power field)Ordered By: Scott Steele on 12-16-2022 Bacteria LM.HPF (Urine sed) [#/Area] 0 /[HPF] None Seen [facility] Urine specific gravity measu rementOrdered By: Scott Steele on 12-16-2022 Specific gravity (U) [Rel density] 1.015 1.002-1.030 [facility] Urobilinogen Auto test strip Ql (U)Ordered By: Scott Steele on 12-16-2022 Urobilinogen Ql (U) Normal mg/dl Normal [facility] Whole blood hemoglobin A1c/t otal hemoglobin ratio (mass fraction)Ordered By: Scott Steele on 12-16-2022 HbA1c (Bld) [Mass fraction] 6.4 % 3.8-5.6 [facility] Comment on above: Normal < 5.7 % Predi abetic 5.7 - 6.4 % Diabetic >or= 6.5 % Please note range changes. Absolute lymphocyte countOrd ered By: Dr. Steele on 09-21-2022 Lymphocytes Auto (Unsp spec) [#/Vol] 1.99 10*3/uL 0.83-4.51 [facility] Basophil percentageOrdered B y: Dr. Steele on 09-21-2022 Basophils/100 WBC (Bld) 0.7 % 0-1 [facility] Bilirubin [Mass/Vol] 0.40 mg/dL 0.20-1.00 [facility] Comment on above: For patients on eltr ombopag therapy, use of [place] TBIL is not recommended. Chloride [Moles/Vol] 105 mmol/L 98-107 [facility] Eosinophils/100 WBC (Bld) 1.1 % 0-5 [facility] Glucose [Mass/Vol] 103 mg/dL 74-106 [facility] Comment on above: Fasting Glucose resu lt from 100 to 125 mg/dL suggests IMPAIRED HOMEOSTASIS per A.D.A. criteria. Neutrophils (Bld) [#/Vol] 4.8 10*3/uL 2.0-7.7 [facility] Neutrophils/100 WBC (Bld) 64.0 % 47-70 [facility] Potassium [Moles/Vol] 4.3 mmol/L 3.5-5.1 [facility] Protein [Mass/Vol] 7.7 g/dL 6.4-8.2 [facility] Sodium [Moles/Vol] 139 mmol/L 136-145 [facility] WBC (Bld) [#/Vol] 7.5 10*3/uL 4.4-11.0 [facility] Blood erythrocytes count (nu mber/volume)Ordered By: Dr. Steele on 09-21-2022 RBC (Bld) [#/Vol] 4.41 10*6/uL 4.2-5.4 [facility] Blood hemoglobin measurement (mass/volume)Ordered By: Dr. Steele on 09-21-2022 Hemoglobin (Bld) [Mass/Vol] 11.5 g/dL 12.0-15.0 [facility] Blood lymphocytes/100 leukoc ytesOrdered By: Dr. Steele on 09-21-2022 Lymphocytes/100 WBC (Bld) 26.4 % 19-41 [facility] Blood monocytes/100 leukocyt esOrdered By: Dr. Steele on 09-21-2022 Monocytes/100 WBC (Bld) 7.4 % 0-10 [facility] Blood platelet mean volumeOr dered By: Dr. Steele on 09-21-2022 Platelet mean volume (Bld) [Entitic vol] 10.9 fL 6.2-12.0 [facility] Determination of erythrocyte mean corpuscular volume (MCV)Ordered By: Dr. Steele on 09-21-2022 MCV (RBC) [Entitic vol] 83.9 fL 81-99 [facility] Hematocrit Auto (Bld) [Volum e fraction]Ordered By: Dr. Steele on 09-21-2022 Hematocrit (Bld) [Volume fraction] 37.0 % 37-47 [facility] Iron measurement (mass/mass) Ordered By: Dr. Steele on 09-21-2022 Iron (Unsp spec) [Mass/Mass] 32 ug/dL 50-170 [facility] - Chemistry and C hemistry - challengeOrdered By: Dr. Steele on 09-21-2022 ALP [Catalytic activity/Vol] 41 U/L 45-117 [facility] ALT [Catalytic activity/Vol] 29 U/L 13-56 [facility] CO2 [Moles/Vol] 22.0 mmol/L 21.0-32.0 [facility] Cobalamin (Vitamin B12) [Mass/Vol] 284 pg/mL 211-911 [facility] Globulin (S) [Mass/Vol] 3.6 g/dL 2.2-4.2 [facility] Urea nitrogen/Creatinine [Mass ratio] 18.8 mg/mg 10-20 [facility] - Hematology and Cell countsOrdered By: Dr. Steele on 09-21-2022 Erythrocyte distribution width (RBC) [Entitic vol] 49.4 fL 35.1-43.9 [facility] Erythrocyte distribution width (RBC) [Ratio] 16.2 % 11.6-14.6 [facility] Immature granulocytes/100 WBC (Bld) 0.400 % 0.0-0.9 [facility] Comment on above: IG% - Immature Granu locytes (promyelocytes, myelocytes and metamyelocytes) > 1% indicates that a LEFT SHIFT is Present. MCH (RBC) [Entitic mass] 26.1 pg 27.0-32.0 [facility] Nucleated RBC/100 WBC (Bld) [Ratio] 0 % 0-5 [facility] MCHC Auto (RBC) [Mass/Vol]Or dered By: Dr. Steele on 09-21-2022 MCHC (RBC) [Mass/Vol] 31.1 g/dL 32-36 [facility] No Panel InformationOrdered By: Dr. Steele on 09-21-2022 Estimated GFR (MDRD) Amer 71 mL/min >60 [facility] Comment on above: GFR Calc Estimated GFR (MDRD) Non-Af Amer 58 mL/min >60 [facility] Comment on above: Non- GFR Calc Total Iron Binding Capacity 368 ug/dL 250-450 [facility] Platelets bldOrdered By: Dr. Steele on 09-21-2022 Platelets (Bld) [#/Vol] 311 10*3/uL 150-450 [facility] Serum or plasma albumin [place] urement (mass/volume)Ordered By: Dr. Steele on 09-21-2022 Albumin [Mass/Vol] 4.1 g/dL 3.2-5.0 [facility] Serum or plasma albumin/glob ulin mass ratioOrdered By: Dr. Steele on 09-21-2022 Albumin/Globulin [Mass ratio] 1.1 {ratio} 0.9-2.4 [facility] Serum or plasma calcium char[place] urement (mass/volume)Ordered By: Dr. Steele on 09-21-2022 Calcium [Mass/Vol] 9.6 mg/dL 8.5-10.1 [facility] Serum or plasma creatinine m easurement (mass/volume)Ordered By: Dr. Steele on 09-21-2022 Creatinine [Mass/Vol] 1.01 mg/dL 0.55-1.02 [facility] Comment on above: The validity of the calculated GFR & GFRAA in patients over 70 years has not been determined. Clinical correlation is essential. Serum or plasma ferritin mitzy surement (mass/volume)Ordered By: Dr. Steele on 09-21-2022 Ferritin [Mass/Vol] 10 ng/mL 8-252 [facility] Serum or plasma folate measu rement (mass/volume)Ordered By: Dr. Steele on 09-21-2022 Folate [Mass/Vol] 32.80 ng/mL 3.1-55.4 [facility] Serum or plasma urea nitroge n measurement (mass/volume)Ordered By: Dr. Steele on 09-21-2022 Urea nitrogen [Mass/Vol] 19 mg/dL 7-18 [facility] Thin prep Papanicolaou smear with manual screeningOrdered By: Dr. Steele on 09-21-2022 Thin prep Papanicolaou smear with manual screening 20 U/L 15-37 [facility] Thin prep Papanicolaou smear with manual screening 12 5-15 [facility] Whole blood hemoglobin A1c/t otal hemoglobin ratio (mass fraction)Ordered By: Dr. Steele on 09-21-2022 HbA1c (Bld) [Mass fraction] 7.9 % 3.8-5.6 [facility] Comment on above: Normal < 5.7 % Predi abetic 5.7 - 6.4 % Diabetic >or= 6.5 % Please note range changes. Basophil percentageOrdered B y: Dr. Steele on 09-15-2022 Chloride [Moles/Vol] 104 mmol/L 98-107 [facility] Glucose [Mass/Vol] 111 mg/dL 74-106 [facility] Comment on above: Fasting Glucose resu lt from 100 to 125 mg/dL suggests IMPAIRED HOMEOSTASIS per A.D.A. criteria. Potassium [Moles/Vol] 4.0 mmol/L 3.5-5.1 [facility] Sodium [Moles/Vol] 135 mmol/L 136-145 [facility] Iron measurement (mass/mass) Ordered By: Dr. Steele on 09-15-2022 Iron (Unsp spec) [Mass/Mass] 36 ug/dL 50-170 [facility] - Chemistry and C hemistry - challengeOrdered By: Dr. Steele on 09-15-2022 CO2 [Moles/Vol] 25.0 mmol/L 21.0-32.0 [facility] Cobalamin (Vitamin B12) [Mass/Vol] 317 pg/mL 211-911 [facility] Urea nitrogen/Creatinine [Mass ratio] 19.6 mg/mg 10-20 [facility] No Panel InformationOrdered By: Dr. Steele on 09-15-2022 Estimated GFR (MDRD) Amer 74 mL/min >60 [facility] Comment on above: GFR Calc Estimated GFR (MDRD) Non-Af Amer 61 mL/min >60 [facility] Comment on above: Non- GFR Calc Total Iron Binding Capacity 354 ug/dL 250-450 [facility] Serum or plasma calcium charlotte urement (mass/volume)Ordered By: Dr. Steele on 09-15-2022 Calcium [Mass/Vol] 9.9 mg/dL 8.5-10.1 [facility] or plasma creatinine m easurement (mass/volume)Ordered By: Dr. Steele on 09-15-2022 Creatinine [Mass/Vol] 0.97 mg/dL 0.55-1.02 [facility] Comment on above: The validity of the calculated GFR & GFRAA in patients over 70 years has not been determined. Clinical correlation is essential. Serum or plasma ferritin mitzy surement (mass/volume)Ordered By: Dr. Steele on 09-15-2022 Ferritin [Mass/Vol] 12 ng/mL 8-252 [facility] Serum or plasma urea nitroge n measurement (mass/volume)Ordered By: Dr. Steele on 09-15-2022 Urea nitrogen [Mass/Vol] 19 mg/dL 7-18 [facility] Thin prep Papanicolaou smear with manual screeningOrdered By: Dr. Steele on 09-15-2022 Thin prep Papanicolaou smear with manual screening 6 5-15 [facility] Absolute lymphocyte countOrd ered By: Dr. Steele on 07-28-2022 Lymphocytes Auto (Unsp spec) [#/Vol] 2.07 10*3/uL 0.83-4.51 [facility] Basophil percentageOrdered B y: Dr. Steele on 07-28-2022 Basophils/100 WBC (Bld) 1.1 % 0-1 [facility] Bilirubin [Mass/Vol] 0.40 mg/dL 0.20-1.00 [facility] Comment on above: For patients on eltr ombopag therapy, use of [place] TBIL is not recommended. Chloride [Moles/Vol] 99 mmol/L 98-107 [facility] Cholesterol [Mass/Vol] 129 mg/dL <200 [facility] Comment on above: <200 mg/dL Desirable 200-240 mg/dL Borderline >240 mg/dL High Risk Eosinophils/100 WBC (Bld) 1.6 % 0-5 [facility] Glucose [Mass/Vol] 265 mg/dL 74-106 [facility] Comment on above: Glucose result great er than or equal to 200 mg/dLsuggests DIABETES MELLITUS per A.D.A. criteria. Neutrophils (Bld) [#/Vol] 3.5 10*3/uL 2.0-7.7 [facility] Neutrophils/100 WBC (Bld) 55.0 % 47-70 [facility] Potassium [Moles/Vol] 4.2 mmol/L 3.5-5.1 [facility] Protein [Mass/Vol] 7.5 g/dL 6.4-8.2 [facility] Sodium [Moles/Vol] 134 mmol/L 136-145 [facility] Triglyceride [Mass/Vol] 128 mg/dL <199 [facility] Comment on above: The drugs N-Acetylcy steine and Metamizole may falsely depress this assay.Serum Triglycerides Reference Interval Normal <150 mg/dL Borderline high 150 - 199 mg/dL High 200 - 499 mg/dL Very High > or = 500 mg/dL WBC (Bld) [#/Vol] 6.4 10*3/uL 4.4-11.0 [facility] Blood erythrocytes count (nu mber/volume)Ordered By: Dr. Steele on 07-28-2022 RBC (Bld) [#/Vol] 4.51 10*6/uL 4.2-5.4 [facility] Blood hemoglobin measurement (mass/volume)Ordered By: Dr. Steele on 07-28-2022 Hemoglobin (Bld) [Mass/Vol] 11.4 g/dL 12.0-15.0 [facility] Blood lymphocytes/100 leukoc ytesOrdered By: Dr. Steele on 07-28-2022 Lymphocytes/100 WBC (Bld) 32.2 % 19-41 [facility] Blood monocytes/100 leukocyt esOrdered By: Dr. Steele on 07-28-2022 Monocytes/100 WBC (Bld) 9.3 % 0-10 [facility] Blood platelet mean volumeOr dered By: Dr. Steele on 07-28-2022 Platelet mean volume (Bld) [Entitic vol] 11.1 fL 6.2-12.0 [facility] Determination of erythrocyte mean corpuscular volume (MCV)Ordered By: Dr. Steele on 07-28-2022 MCV (RBC) [Entitic vol] 80.9 fL 81-99 [facility] Hematocrit Auto (Bld) [Volum e fraction]Ordered By: Dr. Steele on 07-28-2022 Hematocrit (Bld) [Volume fraction] 36.5 % 37-47 [facility] - Chemistry and C hemistry - challengeOrdered By: Dr. Steele on 07-28-2022 ALP [Catalytic activity/Vol] 42 U/L 45-117 [facility] ALT [Catalytic activity/Vol] 33 U/L 13-56 [facility] CO2 [Moles/Vol] 26.0 mmol/L 21.0-32.0 [facility] Globulin (S) [Mass/Vol] 3.6 g/dL 2.2-4.2 [facility] Urea nitrogen/Creatinine [Mass ratio] 16.7 mg/mg 10-20 [facility] - Hematology and Cell countsOrdered By: Dr. Steele on 07-28-2022 Erythrocyte distribution width (RBC) [Entitic vol] 47.8 fL 35.1-43.9 [facility] Erythrocyte distribution width (RBC) [Ratio] 16.4 % 11.6-14.6 [facility] Immature granulocytes/100 WBC (Bld) 0.800 % 0.0-0.9 [facility] Comment on above: IG% - Immature Granu locytes (promyelocytes, myelocytes and metamyelocytes) > 1% indicates that a LEFT SHIFT is Present. MCH (RBC) [Entitic mass] 25.3 pg 27.0-32.0 [facility] Nucleated RBC/100 WBC (Bld) [Ratio] 0 % 0-5 [facility] MCHC Auto (RBC) [Mass/Vol]Or dered By: Dr. Steele on 07-28-2022 MCHC (RBC) [Mass/Vol] 31.2 g/dL 32-36 [facility] No Panel InformationOrdered By: Dr. Steele on 07-28-2022 Estimated GFR (MDRD) Amer 70 mL/min >60 [facility] Comment on above: GFR Calc Estimated GFR (MDRD) Non-Af Amer 58 mL/min >60 [facility] Comment on above: Non- GFR Calc Urine Microalbumin/Creatinine Ratio 45.5 mg/g CRE <30 [facility] Vitamin D 25-Hydroxy 55.9 ng/mL [facility] Comment on above: Vitamin D 25(OH) Sta tus Range Deficiency <20 ng/mL (50nmol/L) Insufficiency 20 - 30 ng/mL (50 - 75 nmol/L) Sufficiency 30 - 100 ng/mL (75 - 250 nmol/L) Toxicity >100 ng/mL (>250 nmol/L) Platelets bldOrdered By: Dr. Steele on 07-28-2022 Platelets (Bld) [#/Vol] 283 10*3/uL 150-450 [facility] Serum or plasma albumin char[place] urement (mass/volume)Ordered By: Dr. Steele on 07-28-2022 Albumin [Mass/Vol] 3.9 g/dL 3.2-5.0 [facility] Serum or plasma albumin/glob ulin mass ratioOrdered By: Dr. Steele on 07-28-2022 Albumin/Globulin [Mass ratio] 1.1 {ratio} 0.9-2.4 [facility] Serum or plasma calcium charlotte urement (mass/volume)Ordered By: Dr. Steele on 07-28-2022 Calcium [Mass/Vol] 9.4 mg/dL 8.5-10.1 [facility] Serum or plasma cholesterol in HDL measurement (mass/volume)Ordered By: Dr. Steele on 07-28-2022 Cholesterol in HDL [Mass/Vol] 49 mg/dL >40 [facility] Comment on above: The drugs N-Acetylcy steine and Metamizole may falsely depress this assay. Reference Range HDL <40 mg/dL Low HDL Cholesterol HDL >or= 60 mg/dL High HDL Cholesterol Serum or plasma cholesterol in VLDL measurement (mass/volume)Ordered By: Dr. Steele on 07-28-2022 Cholesterol in VLDL [Mass/Vol] 26 mg/dL 5-40 [facility] Serum or plasma creatinine m easurement (mass/volume)Ordered By: Dr. Steele on 07-28-2022 Creatinine [Mass/Vol] 1.02 mg/dL 0.55-1.02 [facility] Comment on above: The validity of the calculated GFR & GFRAA in patients over 70 years has not been determined. Clinical correlation is essential. Serum or plasma low density lipoprotein (LDL) cholesterol measurement (mass/volume)Ordered By: Dr. Steele on 07-28-2022 Cholesterol in LDL [Mass/Vol] 54 mg/dL 0-130 [facility] Serum or plasma urea nitroge n measurement (mass/volume)Ordered By: Dr. Steele on 07-28-2022 Urea nitrogen [Mass/Vol] 17 mg/dL 7-18 [facility] Thin prep Papanicolaou smear with manual screeningOrdered By: Dr. Steele on 07-28-2022 Thin prep Papanicolaou smear with manual screening 20 U/L 15-37 [facility] Thin prep Papanicolaou smear with manual screening 9 5-15 [facility] Thin prep Papanicolaou smear with manual screening 50.5 mg/L NO RANGE EST. [facility] Urine creatinine measurement (mass/volume)Ordered By: Dr. Steele on 07-28-2022 Creatinine (U) [Mass/Vol] 111.00 mg/dL NO RANGE EST. [facility] Whole blood hemoglobin A1c/t otal hemoglobin ratio (mass fraction)Ordered By: Dr. Steele on 07-28-2022 HbA1c (Bld) [Mass fraction] 11.0 % 3.8-5.6 [facility] Comment on above: Normal < 5.7 % Predi abetic 5.7 - 6.4 % Diabetic >or= 6.5 % Please note range changes. Absolute lymphocyte countOrd ered By: Kiara Pearce on 06-20-2022 Lymphocytes Auto (Unsp spec) [#/Vol] 2.20 10*3/uL 0.83-4.51 [facility] Basophil percentageOrdered B y: Kiara Pearce on 06-20-2022 Basophils/100 WBC (Bld) 0.8 % 0-1 [facility] Chloride [Moles/Vol] 102 mmol/L 98-107 [facility] Eosinophils/100 WBC (Bld) 1.9 % 0-5 [facility] Glucose [Mass/Vol] 256 mg/dL 74-106 [facility] Comment on above: Glucose result great er than or equal to 200 mg/dLsuggests DIABETES MELLITUS per A.D.A. criteria. Neutrophils (Bld) [#/Vol] 4.7 10*3/uL 2.0-7.7 [facility] Neutrophils/100 WBC (Bld) 60.5 % 47-70 [facility] Potassium [Moles/Vol] 4.4 mmol/L 3.5-5.1 [facility] Sodium [Moles/Vol] 138 mmol/L 136-145 [facility] WBC (Bld) [#/Vol] 7.8 10*3/uL 4.4-11.0 [facility] Blood erythrocytes count (nu mber/volume)Ordered By: Kiara Pearce on 06-20-2022 RBC (Bld) [#/Vol] 4.35 10*6/uL 4.2-5.4 [facility] Blood hemoglobin measurement (mass/volume)Ordered By: Kiara Pearce on 06-20-2022 Hemoglobin (Bld) [Mass/Vol] 10.9 g/dL 12.0-15.0 [facility] Blood lymphocytes/100 leukoc ytesOrdered By: Kiara Pearce on 06-20-2022 Lymphocytes/100 WBC (Bld) 28.2 % 19-41 [facility] Blood monocytes/100 leukocyt esOrdered By: Kiara Pearce on 06-20-2022 Monocytes/100 WBC (Bld) 8.2 % 0-10 [facility] Blood platelet mean volumeOr dered By: Kiara Pearce on 06-20-2022 Platelet mean volume (Bld) [Entitic vol] 11.8 fL 6.2-12.0 [facility] Determination of erythrocyte mean corpuscular volume (MCV)Ordered By: Kiara Pearce on 06-20-2022 MCV (RBC) [Entitic vol] 82.1 fL 81-99 [facility] Hematocrit Auto (Bld) [Volum e fraction]Ordered By: Kiara Pearce on 06-20-2022 Hematocrit (Bld) [Volume fraction] 35.7 % 37-47 [facility] - Chemistry and C hemistry - challengeOrdered By: Kiara Pearce on 06-20-2022 CO2 [Moles/Vol] 24.0 mmol/L 21.0-32.0 [facility] Urea nitrogen/Creatinine [Mass ratio] 12.4 mg/mg 10-20 [facility] - Hematology and Cell countsOrdered By: Kiara Pearce on 06-20-2022 Erythrocyte distribution width (RBC) [Entitic vol] 48.1 fL 35.1-43.9 [facility] Erythrocyte distribution width (RBC) [Ratio] 16.0 % 11.6-14.6 [facility] Immature granulocytes/100 WBC (Bld) 0.400 % 0.0-0.9 [facility] Comment on above: IG% - Immature Granu locytes (promyelocytes, myelocytes and metamyelocytes) > 1% indicates that a LEFT SHIFT is Present. MCH (RBC) [Entitic mass] 25.1 pg 27.0-32.0 [facility] Nucleated RBC/100 WBC (Bld) [Ratio] 0 % 0-5 [facility] MCHC Auto (RBC) [Mass/Vol]Or dered By: Kiara Pearce on 06-20-2022 MCHC (RBC) [Mass/Vol] 30.5 g/dL 32-36 [facility] No Panel InformationOrdered By: Kiara Pearce on 06-20-2022 Estimated GFR (MDRD) Amer 62 mL/min >60 [facility] Comment on above: GFR Calc Estimated GFR (MDRD) Non-Af Amer 51 mL/min >60 [facility] Comment on above: Non- GFR Calc Platelets bldOrdered By: Felton Pearce on 06-20-2022 Platelets (Bld) [#/Vol] 314 10*3/uL 150-450 [facility] Qualitative QuantiFERON-TB g old in tube testOrdered By: Kiara Pearce on 06-20-2022 M. tuberculosis tuberculin stim IFN-g Ql (Bld) 0.04 IU/mL . [facility] Serum hepatitis B virus core antibody detectionOrdered By: Kiara Pearce on 06-20-2022 HBV core Ab Ql (S) Negative Negative [facility] Comment on above: Performed at: [facility] [employer] [address] [id number] Director: Han Das PhD, Phone: [phone] Serum or plasma calcium charlotte urement (mass/volume)Ordered By: Kiara Pearce on 06-20-2022 Calcium [Mass/Vol] 9.3 mg/dL 8.5-10.1 [facility] Serum or plasma creatinine m easurement (mass/volume)Ordered By: Kiara Pearce on 06-20-2022 Creatinine [Mass/Vol] 1.13 mg/dL 0.55-1.02 [facility] Comment on above: The validity of the calculated GFR & GFRAA in patients over 70 years has not been determined. Clinical correlation is essential. Serum or plasma urea nitroge n measurement (mass/volume)Ordered By: Kiara Pearce on 06-20-2022 Urea nitrogen [Mass/Vol] 14 mg/dL 7-18 [facility] Thin prep Papanicolaou smear with manual screeningOrdered By: Kiara Pearce on 06-20-2022 Thin prep Papanicolaou smear with manual screening 12 5-15 [facility] Thin prep Papanicolaou smear with manual screening Comment . [facility] Comment on above: QuantiFERON-TB Gold Plus [...] smear with manual screening 0.03 IU/mL . [facility] Thin prep Papanicolaou smear with manual screening > 10.00 IU/mL . [facility] Thin prep Papanicolaou smear with manual screening Negative Negative [facility] Comment on above: No response to [...] Auto (Unsp spec) [#/Vol] 2.47 10*3/uL 0.83-4.51 [facility] Basophil percentageOrdered B y: Miles Meza on 05-17-2022 Basophils/100 WBC (Bld) 0.9 % 0-1 [facility] Chloride [Moles/Vol] 101 mmol/L 98-107 [facility] Eosinophils/100 WBC (Bld) 2.2 % 0-5 [facility] Glucose [Mass/Vol] 140 mg/dL 74-106 [facility] Comment on above: Fasting Glucose resu lt greater than or equal to 126 mg/dL suggests DIABETES MELLITUS per A.D.A. criteria. Neutrophils (Bld) [#/Vol] 4.7 10*3/uL 2.0-7.7 [facility] Neutrophils/100 WBC (Bld) 56.7 % 47-70 [facility] Potassium [Moles/Vol] 4.4 mmol/L 3.5-5.1 [facility] Sodium [Moles/Vol] 137 mmol/L 136-145 [facility] WBC (Bld) [#/Vol] 8.2 10*3/uL 4.4-11.0 [facility] Blood erythrocytes count (nu mber/volume)Ordered By: Miles Meza on 05-17-2022 RBC (Bld) [#/Vol] 4.31 10*6/uL 4.2-5.4 [facility] Blood hemoglobin measurement (mass/volume)Ordered By: Miles Meza on 05-17-2022 Hemoglobin (Bld) [Mass/Vol] 10.9 g/dL 12.0-15.0 [facility] Blood lymphocytes/100 leukoc ytesOrdered By: Miles Susana on 05-17-2022 Lymphocytes/100 WBC (Bld) 30.1 % 19-41 [facility] Blood monocytes/100 leukocyt esOrdered By: [place] Susana on 05-17-2022 Monocytes/100 WBC (Bld) 9.4 % 0-10 [facility] Blood platelet mean volumeOr dered By: Miles Meza on 05-17-2022 Platelet mean volume (Bld) [Entitic vol] 11.3 fL 6.2-12.0 [facility] Determination of erythrocyte mean corpuscular volume (MCV)Ordered By: Miles Meza on 05-17-2022 MCV (RBC) [Entitic vol] 81.9 fL 81-99 [facility] Hematocrit Auto (Bld) [Volum e fraction]Ordered By: Miles Meza on 05-17-2022 Hematocrit (Bld) [Volume fraction] 35.3 % 37-47 [facility] - Chemistry and C hemistry - challengeOrdered By: Miles Meza on 05-17-2022 CO2 [Moles/Vol] 28.0 mmol/L 21.0-32.0 [facility] Urea nitrogen/Creatinine [Mass ratio] 13.0 mg/mg 10-20 [facility] - Hematology and Cell countsOrdered By: Miles Meza on 05-17-2022 Erythrocyte distribution width (RBC) [Entitic vol] 47.2 fL 35.1-43.9 [facility] Erythrocyte distribution width (RBC) [Ratio] 15.9 % 11.6-14.6 [facility] Immature granulocytes/100 WBC (Bld) 0.700 % 0.0-0.9 [facility] Comment on above: IG% - Immature Granu locytes (promyelocytes, myelocytes and metamyelocytes) > 1% indicates that a LEFT SHIFT is Present. MCH (RBC) [Entitic mass] 25.3 pg 27.0-32.0 [facility] Nucleated RBC/100 WBC (Bld) [Ratio] 0 % 0-5 [facility] MCHC Auto (RBC) [Mass/Vol]Or dered By: Miles Meza on 05-17-2022 MCHC (RBC) [Mass/Vol] 30.9 g/dL 32-36 [facility] No Panel InformationOrdered By: Miles Meza on 05-17-2022 Estimated GFR (MDRD) Amer 72 mL/min >60 [facility] Comment on above: GFR Calc Estimated GFR (MDRD) Non-Af Amer 59 mL/min >60 [facility] Comment on above: Non- GFR Calc Platelets bldOrdered By: Jose Meza on 05-17-2022 Platelets (Bld) [#/Vol] 329 10*3/uL 150-450 [facility] Qualitative QuantiFERON-TB g old in tube testOrdered By: Miles Meza on 05-17-2022 M. tuberculosis tuberculin stim IFN-g Ql (Bld) 0.02 IU/mL . [facility] Serum hepatitis B virus core antibody detectionOrdered By: Miles Meza on 05-17-2022 HBV core Ab Ql (S) Negative Negative [facility] Comment on above: Performed at: [address] Director: Han Das PhD, Phone: [phone] Serum or plasma calcium charlotte urement (mass/volume)Ordered By: Miles Meza on 05-17-2022 Calcium [Mass/Vol] 9.7 mg/dL 8.5-10.1 [facility] Serum or plasma creatinine m easurement (mass/volume)Ordered By: Miles Meza on 05-17-2022 Creatinine [Mass/Vol] 1.00 mg/dL 0.55-1.02 [facility] Comment on above: The validity of the calculated GFR & GFRAA in patients over 70 years has not been determined. Clinical correlation is essential. Serum or plasma urea nitroge n measurement (mass/volume)Ordered By: Miles Meza on 05-17-2022 Urea nitrogen [Mass/Vol] 13 mg/dL 7-18 [facility] Thin prep Papanicolaou smear with manual screeningOrdered By: Miles Meza on 05-17-2022 Thin prep Papanicolaou smear with manual screening 8 5-15 [facility] Thin prep Papanicolaou smear with manual screening Comment . [facility] Comment on above: QuantiFERON-TB Gold Plus [...] smear with manual screening 0.04 IU/mL . [facility] Thin prep Papanicolaou smear with manual screening 0.03 IU/mL . [facility] Thin prep Papanicolaou smear with manual screening > 10.00 IU/mL . [facility] Thin prep Papanicolaou smear with manual screening Negative Negative [facility] Comment on above: No response to [...] on 03-15-2022 Chloride [Moles/Vol] 104 mmol/L 98-107 [facility] Glucose [Mass/Vol] 179 mg/dL 74-106 [facility] Comment on above: Fasting Glucose resu lt greater than or equal to 126 mg/dL suggests DIABETES MELLITUS per A.D.A. criteria. Potassium [Moles/Vol] 4.4 mmol/L 3.5-5.1 [facility] Sodium [Moles/Vol] 136 mmol/L 136-145 [facility] Laboratory - Chemistry and C hemistry - challengeOrdered By: Dr. Steele on 03-15-2022 CO2 [Moles/Vol] 26.0 mmol/L 21.0-32.0 [facility] Urea nitrogen/Creatinine [Mass ratio] 15.4 mg/mg 10- [facility] No Panel InformationOrdered By: Dr. Steele on 03-15-2022 Estimated GFR (MDRD) Amer 69 mL/min >60 [facility] Comment on above: GFR Calc Estimated GFR (MDRD) Non-Af Amer 57 mL/min >60 [facility] Comment on above: Non- GFR Calc Serum or plasma calcium charlotte urement (mass/volume)Ordered By: Dr. Steele on 03-15-2022 Calcium [Mass/Vol] 9.8 mg/dL 8.5-10.1 [facility] Serum or plasma creatinine m easurement (mass/volume)Ordered By: Dr. Steele on 03-15-2022 Creatinine [Mass/Vol] 1.04 mg/dL 0.55-1.02 [facility] Comment on above: The validity of the calculated GFR & GFRAA in patients over 70 years has not been determined. Clinical correlation is essential. Serum or plasma urea nitroge n measurement (mass/volume)Ordered By: Dr. Steele on 03-15-2022 Urea nitrogen [Mass/Vol] 16 mg/dL 7-18 [facility] Thin prep Papanicolaou smear with manual screeningOrdered By: Dr. Steele on 03-15-2022 Thin prep Papanicolaou smear with manual screening 6 5-15 [facility] Absolute lymphocyte countOrd ered By: Dr. Steele on 03-09-2022 Lymphocytes Auto (Unsp spec) [#/Vol] 2.29 10*3/uL 0.83-4.51 [facility] Basophil percentageOrdered B y: Dr. Steele on 03-09-2022 Basophils/100 WBC (Bld) 0.8 % 0-1 [facility] Bilirubin [Mass/Vol] 0.40 mg/dL 0.20-1.00 [facility] Comment on above: For patients on eltr ombopag therapy, use of Dimension [place] TBIL is not recommended. Chloride [Moles/Vol] 103 mmol/L 98-107 [facility] Cholesterol [Mass/Vol] 99 mg/dL <200 [facility] Comment on above: <200 mg/dL Desirable 200-240 mg/dL Borderline >240 mg/dL High Risk Eosinophils/100 WBC (Bld) 1.9 % 0-5 [facility] Glucose [Mass/Vol] 123 mg/dL 74-106 [facility] Comment on above: Fasting Glucose resu lt from 100 to 125 mg/dL suggests IMPAIRED HOMEOSTASIS per A.D.A. criteria. Neutrophils (Bld) [#/Vol] 5.7 10*3/uL 2.0-7.7 [facility] Neutrophils/100 WBC (Bld) 63.1 % 47-70 [facility] Potassium [Moles/Vol] 4.3 mmol/L 3.5-5.1 [facility] Protein [Mass/Vol] 7.7 g/dL 6.4-8.2 [facility] Sodium [Moles/Vol] 138 mmol/L 136-145 [facility] Triglyceride [Mass/Vol] 158 mg/dL <199 [facility] Comment on above: The drugs N-Acetylcy steine and Metamizole may falsely depress this assay.Serum Triglycerides Reference Interval Normal <150 mg/dL Borderline high 150 - 199 mg/dL High 200 - 499 mg/dL Very High > or = 500 mg/dL WBC (Bld) [#/Vol] 9.0 10*3/uL 4.4-11.0 [facility] Blood erythrocytes count (nu mber/volume)Ordered By: Dr. Steele on 03-09-2022 RBC (Bld) [#/Vol] 4.27 10*6/uL 4.2-5.4 [facility] Blood hemoglobin measurement (mass/volume)Ordered By: Dr. Steele on 03-09-2022 Hemoglobin (Bld) [Mass/Vol] 11.5 g/dL 12.0-15.0 [facility] Blood lymphocytes/100 leukoc ytesOrdered By: Dr. Steele on 03-09-2022 Lymphocytes/100 WBC (Bld) 25.6 % 19-41 [facility] Blood monocytes/100 leukocyt esOrdered By: Dr. Steele on 03-09-2022 Monocytes/100 WBC (Bld) 8.0 % 0-10 [facility] Blood platelet mean volumeOr dered By: Dr. Steele on 03-09-2022 Platelet mean volume (Bld) [Entitic vol] 10.7 fL 6.2-12.0 [facility] Determination of erythrocyte mean corpuscular volume (MCV)Ordered By: Dr. Steele on 03-09-2022 MCV (RBC) [Entitic vol] 84.5 fL 81-99 [facility] Hematocrit Auto (Bld) [Volum e fraction]Ordered By: Dr. Steele on 03-09-2022 Hematocrit (Bld) [Volume fraction] 36.1 % 37-47 [facility] Iron measurement (mass/mass) Ordered By: Dr. Steele on 03-09-2022 Iron (Unsp spec) [Mass/Mass] 33 ug/dL 50-170 [facility] Laboratory - Chemistry and C hemistry - challengeOrdered By: Dr. Steele on 03-09-2022 ALP [Catalytic activity/Vol] 42 U/L 45-117 [facility] ALT [Catalytic activity/Vol] 22 U/L 13-56 [facility] CO2 [Moles/Vol] 25.0 mmol/L 21.0-32.0 [facility] Cobalamin (Vitamin B12) [Mass/Vol] 202 pg/mL 211-911 [facility] Globulin (S) [Mass/Vol] 3.9 g/dL 2.2-4.2 [facility] Urea nitrogen/Creatinine [Mass ratio] 16.5 mg/mg 10-20 [facility] - Hematology and Cell countsOrdered By: Dr. Steele on 03-09-2022 Erythrocyte distribution width (RBC) [Entitic vol] 47.0 fL 35.1-43.9 [facility] Erythrocyte distribution width (RBC) [Ratio] 15.5 % 11.6-14.6 [facility] Immature granulocytes/100 WBC (Bld) 0.600 % 0.0-0.9 [facility] Comment on above: IG% - Immature Granu locytes (promyelocytes, myelocytes and metamyelocytes) > 1% indicates that a LEFT SHIFT is Present. MCH (RBC) [Entitic mass] 26.9 pg 27.0-32.0 [facility] Nucleated RBC/100 WBC (Bld) [Ratio] 0 % 0-5 [facility] MCHC Auto (RBC) [Mass/Vol]Or dered By: Dr. Steele on 03-09-2022 MCHC (RBC) [Mass/Vol] 31.9 g/dL 32-36 [facility] No Panel InformationOrdered By: Dr. Steele on 03-09-2022 Estimated GFR (MDRD) Amer 69 mL/min >60 [facility] Comment on above: GFR Calc Estimated GFR (MDRD) Non-Af Amer 57 mL/min >60 [facility] Comment on above: Non- GFR Calc Total Iron Binding Capacity 323 ug/dL 250-450 [facility] Vitamin D 25-Hydroxy 74.0 ng/mL [facility] Comment on above: Vitamin D 25(OH) Sta tus Range Deficiency <20 ng/mL (50nmol/L) Insufficiency 20 - 30 ng/mL (50 - 75 nmol/L) Sufficiency 30 - 100 ng/mL (75 - 250 nmol/L) Toxicity >100 ng/mL (>250 nmol/L) Platelets bldOrdered By: Dr. Steele on 03-09-2022 Platelets (Bld) [#/Vol] 399 10*3/uL 150-450 [facility] Serum or plasma albumin charlotte urement (mass/volume)Ordered By: Dr. Steele on 03-09-2022 Albumin [Mass/Vol] 3.8 g/dL 3.2-5.0 [facility] Serum or plasma albumin/glob ulin mass ratioOrdered By: Dr. Steele on 03-09-2022 Albumin/Globulin [Mass ratio] 1.0 {ratio} 0.9-2.4 [facility] Serum or plasma calcium charlotte urement (mass/volume)Ordered By: Dr. Steele on 03-09-2022 Calcium [Mass/Vol] 9.4 mg/dL 8.5-10.1 [facility] Serum or plasma cholesterol in HDL measurement (mass/volume)Ordered By: Dr. Steele on 03-09-2022 Cholesterol in HDL [Mass/Vol] 39 mg/dL >40 [facility] Comment on above: The drugs N-Acetylcy steine and Metamizole may falsely depress this assay. Reference Range HDL <40 mg/dL Low HDL Cholesterol HDL >or= 60 mg/dL High HDL Cholesterol Serum or plasma cholesterol in VLDL measurement (mass/volume)Ordered By: Dr. Steele on 03-09-2022 Cholesterol in VLDL [Mass/Vol] 32 mg/dL 5-40 [facility] Serum or plasma creatinine m easurement (mass/volume)Ordered By: Dr. Steele on 03-09-2022 Creatinine [Mass/Vol] 1.03 mg/dL 0.55-1.02 [facility] Comment on above: The validity of the calculated GFR & GFRAA in patients over 70 years has not been determined. Clinical correlation is essential. Serum or plasma ferritin mitzy surement (mass/volume)Ordered By: Dr. Steele on 03-09-2022 Ferritin [Mass/Vol] 17 ng/mL 8-252 [facility] Serum or plasma iron saturat ion measurement (mass fraction)Ordered By: Dr. Steele on 03-09-2022 Iron saturation [Mass fraction] 10.2 % 15.0-55.0 [facility] Serum or plasma low density lipoprotein (LDL) cholesterol measurement (mass/volume)Ordered By: Dr. Steele on 03-09-2022 Cholesterol in LDL [Mass/Vol] 28 mg/dL 0-130 [facility] Serum or plasma urea nitroge n measurement (mass/volume)Ordered By: Dr. Steele on 03-09-2022 Urea nitrogen [Mass/Vol] 17 mg/dL 7-18 [facility] Thin prep Papanicolaou smear with manual screeningOrdered By: Dr. Steele on 03-09-2022 Thin prep Papanicolaou smear with manual screening 16 U/L 15-37 [facility] Thin prep Papanicolaou smear with manual screening 10 5-15 [facility] Whole blood hemoglobin A1c/t otal hemoglobin ratio (mass fraction)Ordered By: Dr. Steele on 03-09-2022 HbA1c (Bld) [Mass fraction] 7.4 % 3.8-5.6 [facility] Comment on above: Normal < 5.7 % Predi abetic 5.7 - 6.4 % Diabetic >or= 6.5 % Please note range changes. Basophil percentageon 2021 Bilirubin [Mass/Vol] 0.40 mg/dL 0.20-1.00 [facility] Work Phone: Comment on above: For patients on eltr ombopag therapy, use of Dimension [place] TBIL is not recommended. Chloride [Moles/Vol] 101 mmol/L 98-107 [facility] Work Phone: Cholesterol [Mass/Vol] 149 mg/dL <200 [facility] Work Phone: Comment on above: <200 mg/dL Desirable 200-240 mg/dL Borderline >240 mg/dL High Risk Glucose [Mass/Vol] 128 mg/dL 74-106 [facility] Work Phone: Comment on above: Fasting Glucose resu lt greater than or equal to 126 mg/dL suggests DIABETES MELLITUS per A.D.A. criteria. Potassium [Moles/Vol] 4.1 mmol/L 3.5-5.1 [facility] Work Phone: Protein [Mass/Vol] 8.0 g/dL 6.4-8.2 [facility] Work Phone: Sodium [Moles/Vol] 135 mmol/L 136-145 [facility] Work Phone: Triglyceride [Mass/Vol] 111 mg/dL <199 [facility] Work Phone: Comment on above: The drugs N-Acetylcy steine and Metamizole may falsely depress this assay.Serum Triglycerides Reference Interval Normal <150 mg/dL Borderline high 150 - 199 mg/dL High 200 - 499 mg/dL Very High > or = 500 mg/dL Laboratory - Chemistry and C hemistry - challengeon 11-30-2021 ALP [Catalytic activity/Vol] 39 U/L 45-117 [facility] Work Phone: ALT [Catalytic activity/Vol] 25 U/L 13-56 [facility] Work Phone: CO2 [Moles/Vol] 25.0 mmol/L 21.0-32.0 [facility] Work Phone: Globulin (S) [Mass/Vol] 3.8 g/dL 2.2-4.2 [facility] Work Phone: Urea nitrogen/Creatinine [Mass ratio] 22.7 mg/mg 10-20 [facility] Work Phone: No Panel Informationon 11-30 Estimated GFR (MDRD) Amer 79 mL/min >60 [facility] Work Phone: Comment on above: GFR Calc Estimated GFR (MDRD) Non-Af Amer 65 mL/min >60 [facility] Work Phone: Comment on above: Non- GFR Calc Urine Microalbumin/Creatinine Ratio 22.8 mg/g CRE <30 [facility] Work Phone: Vitamin D 25-Hydroxy 64.1 ng/mL [facility] Work Phone: Comment on above: Vitamin D 25(OH) Sta tus Range Deficiency <20 ng/mL (50nmol/L) Insufficiency 20 - 30 ng/mL (50 - 75 nmol/L) Sufficiency 30 - 100 ng/mL (75 - 250 nmol/L) Toxicity >100 ng/mL (>250 nmol/L) Serum or plasma albumin charlotte urement (mass/volume)on 11-30-2021 Albumin [Mass/Vol] 4.2 g/dL 3.2-5.0 [facility] Work Phone: Serum or plasma albumin/glob ulin mass ratioon 11-30-2021 Albumin/Globulin [Mass ratio] 1.1 {ratio} 0.9-2.4 [facility] Work Phone: Serum or plasma calcium charlotte urement (mass/volume)on 11-30-2021 Calcium [Mass/Vol] 9.7 mg/dL 8.5-10.1 [facility] Work Phone: Serum or plasma cholesterol in HDL measurement (mass/volume)on 11-30-2021 Cholesterol in HDL [Mass/Vol] 57 mg/dL >40 [facility] Work Phone: Comment on above: The drugs N-Acetylcy steine and Metamizole may falsely depress this assay. Reference Range HDL <40 mg/dL Low HDL Cholesterol HDL >or= 60 mg/dL High HDL Cholesterol Serum or plasma cholesterol in VLDL measurement (mass/volume)on 11-30-2021 Cholesterol in VLDL [Mass/Vol] 22 mg/dL 5-40 [facility] Work Phone: Serum or plasma creatinine m easurement (mass/volume)on 11-30-2021 Creatinine [Mass/Vol] 0.92 mg/dL 0.55-1.02 [facility] Work Phone: Comment on above: The validity of the calculated GFR & GFRAA in patients over 70 years has not been determined. Clinical correlation is essential. Serum or plasma low density lipoprotein (LDL) cholesterol measurement (mass/volume)on 11-30-2021 Cholesterol in LDL [Mass/Vol] 70 mg/dL 0-130 [facility] Work Phone: Serum or plasma urea nitroge n measurement (mass/volume)on 11-30-2021 Urea nitrogen [Mass/Vol] 21 mg/dL 7-18 [facility] Work Phone: Thin prep Papanicolaou smear with manual screeningon 11-30-2021 Thin prep Papanicolaou smear with manual screening 16 U/L 15-37 [facility] Work Phone: Thin prep Papanicolaou smear with manual screening 9 5-15 [facility] Work Phone: Thin prep Papanicolaou smear with manual screening 15.9 mg/L NO RANGE EST. [facility] Work Phone: Urine creatinine measurement (mass/volume)on 11-30-2021 Creatinine (U) [Mass/Vol] 69.60 mg/dL NO RANGE EST. [facility] Work Phone: Whole blood hemoglobin A1c/t otal hemoglobin ratio (mass fraction)on 11-30-2021 HbA1c (Bld) [Mass fraction] 8.1 % 3.8-5.6 [facility] Work Phone: Comment on above: Normal < 5.7 % Predi abetic 5.7 - 6.4 % Diabetic >or= 6.5 % Please note range changes. Absolute lymphocyte counton 08-27-2021 Lymphocytes Auto (Unsp spec) [#/Vol] 2.66 10*3/uL 0.83-4.51 [facility] Work Phone: [phone] Basophil percentageon 2021 Basophils/100 WBC (Bld) 0.7 % 0-1 [facility] Work Phone: [phone] Bilirubin [Mass/Vol] 0.40 mg/dL 0.20-1.00 [facility] Work Phone: [phone] Comment on above: For patients on eltr ombopag therapy, use of Dimension [place] TBIL is not recommended. Chloride [Moles/Vol] 104 mmol/L 98-107 [facility] Work Phone: [phone] Cholesterol [Mass/Vol] 176 mg/dL <200 [facility] Work Phone: [phone] Comment on above: <200 mg/dL Desirable 200-240 mg/dL Borderline >240 mg/dL High Risk Eosinophils/100 WBC (Bld) 1.3 % 0-5 [facility] Work Phone: [phone] Glucose [Mass/Vol] 139 mg/dL 74-106 [facility] Work Phone: Comment on above: Fasting Glucose resu lt greater than or equal to 126 mg/dL suggests DIABETES MELLITUS per A.D.A. criteria. Neutrophils (Bld) [#/Vol] 5.1 10*3/uL 2.0-7.7 [facility] Work Phone: [phone] Neutrophils/100 WBC (Bld) 59.3 % 47-70 [facility] Work Phone: [phone] Potassium [Moles/Vol] 4.3 mmol/L 3.5-5.1 [facility] Work Phone: [phone] Protein [Mass/Vol] 7.9 g/dL 6.4-8.2 [facility] Work Phone: [phone] Sodium [Moles/Vol] 136 mmol/L 136-145 [facility] Work Phone: [phone] Triglyceride [Mass/Vol] 127 mg/dL <199 [facility] Work Phone: Comment on above: The drugs N-Acetylcy steine and Metamizole may falsely depress this assay.Serum Triglycerides Reference Interval Normal <150 mg/dL Borderline high 150 - 199 mg/dL High 200 - 499 mg/dL Very High > or = 500 mg/dL WBC (Bld) [#/Vol] 8.7 10*3/uL 4.4-11.0 [facility] Work Phone: Blood erythrocytes count (nu mber/volume)on 08-27-2021 RBC (Bld) [#/Vol] 4.47 10*6/uL 4.2-5.4 [facility] Work Phone: Blood hemoglobin measurement (mass/volume)on 08-27-2021 Hemoglobin (Bld) [Mass/Vol] 12.3 g/dL 12.0-15.0 [facility] Work Phone: Blood lymphocytes/100 leukoc yteson 08-27-2021 Lymphocytes/100 WBC (Bld) 30.7 % 19-41 [facility] Work Phone: Blood monocytes/100 leukocyt eson 08-27-2021 Monocytes/100 WBC (Bld) 7.4 % 0-10 [facility] Work Phone: Blood platelet mean volumeon 08-27-2021 Platelet mean volume (Bld) [Entitic vol] 10.9 fL 6.2-12.0 [facility] Work Phone: Determination of erythrocyte mean corpuscular volume (MCV)on 08-27-2021 MCV (RBC) [Entitic vol] 85.7 fL 81-99 [facility] Work Phone: [phone] Hematocrit Auto (Bld) [Volum e fraction]on 08-27-2021 Hematocrit (Bld) [Volume fraction] 38.3 % 37-47 [facility] Work Phone: Laboratory - Chemistry and C hemistry - challengeon 08-27-2021 ALP [Catalytic activity/Vol] 39 U/L 45-117 [facility] Work Phone: ALT [Catalytic activity/Vol] 26 U/L 13-56 [facility] Work Phone: CO2 [Moles/Vol] 27.0 mmol/L 21.0-32.0 [facility] Work Phone: Globulin (S) [Mass/Vol] 3.8 g/dL 2.2-4.2 [facility] Work Phone: Urea nitrogen/Creatinine [Mass ratio] 21.1 mg/mg 10-20 [facility] Work Phone: Laboratory - Hematology and Cell countson 08-27-2021 Erythrocyte distribution width (RBC) [Entitic vol] 43.3 fL 35.1-43.9 [facility] Work Phone: Erythrocyte distribution width (RBC) [Ratio] 13.8 % 11.6-14.6 [facility] Work Phone: Immature granulocytes/100 WBC (Bld) 0.600 % 0.0-0.9 [facility] Work Phone: Comment on above: IG% - Immature Granu locytes (promyelocytes, myelocytes and metamyelocytes) > 1% indicates that a LEFT SHIFT is Present. MCH (RBC) [Entitic mass] 27.5 pg 27.0-32.0 [facility] Work Phone: Nucleated RBC/100 WBC (Bld) [Ratio] 0 % 0-5 [facility] Work Phone: MCHC Auto (RBC) [Mass/Vol]on 08-27-2021 MCHC (RBC) [Mass/Vol] 32.1 g/dL 32-36 [facility] Work Phone: No Panel Informationon 08-27 Estimated GFR (MDRD) Amer 77 mL/min >60 [facility] Work Phone: Comment on above: GFR Calc Estimated GFR (MDRD) Non-Af Amer 63 mL/min >60 [facility] Work Phone: Comment on above: Non- GFR Calc Urine Microalbumin/Creatinine Ratio 21.4 mg/g CRE <30 [facility] Work Phone: Vitamin D 25-Hydroxy 65.8 ng/mL [facility] Work Phone: Comment on above: Vitamin D 25(OH) Sta tus Range Deficiency <20 ng/mL (50nmol/L) Insufficiency 20 - 30 ng/mL (50 - 75 nmol/L) Sufficiency 30 - 100 ng/mL (75 - 250 nmol/L) Toxicity >100 ng/mL (>250 nmol/L) Platelets bldon 08-27-2021 Platelets (Bld) [#/Vol] 344 10*3/uL 150-450 [facility] Work Phone: Serum or plasma albumin [place] urement (mass/volume)on 08-27-2021 Albumin [Mass/Vol] 4.1 g/dL 3.2-5.0 [facility] Work Phone: Serum or plasma albumin/glob ulin mass ratioon 08-27-2021 Albumin/Globulin [Mass ratio] 1.1 {ratio} 0.9-2.4 [facility] Work Phone: Serum or plasma calcium [place] urement (mass/volume)on 08-27-2021 Calcium [Mass/Vol] 9.1 mg/dL 8.5-10.1 [facility] Work Phone: Serum or plasma cholesterol in HDL measurement (mass/volume)on 08-27-2021 Cholesterol in HDL [Mass/Vol] 63 mg/dL >40 [facility] Work Phone: Comment on above: The drugs N-Acetylcy steine and Metamizole may falsely depress this assay. Reference Range HDL <40 mg/dL Low HDL Cholesterol HDL >or= 60 mg/dL High HDL Cholesterol Serum or plasma cholesterol in VLDL measurement (mass/volume)on 08-27-2021 Cholesterol in VLDL [Mass/Vol] 25 mg/dL 5-40 [facility] Work Phone: Serum or plasma creatinine m easurement (mass/volume)on 08-27-2021 Creatinine [Mass/Vol] 0.95 mg/dL 0.55-1.02 [facility] Work Phone: Comment on above: The validity of the calculated GFR & GFRAA in patients over 70 years has not been determined. Clinical correlation is essential. Serum or plasma low density lipoprotein (LDL) cholesterol measurement (mass/volume)on 08-27-2021 Cholesterol in LDL [Mass/Vol] 88 mg/dL 0-130 [facility] Work Phone: Serum or plasma urea nitroge n measurement (mass/volume)on 08-27-2021 Urea nitrogen [Mass/Vol] 20 mg/dL 7-18 [facility] Work Phone: Thin prep Papanicolaou smear with manual screeningon 08-27-2021 Thin prep Papanicolaou smear with manual screening 16 U/L 15-37 [facility] Work Phone: Thin prep Papanicolaou smear with manual screening 5 5-15 [facility] Work Phone: Thin prep Papanicolaou smear with manual screening 11.7 mg/L NO RANGE EST. [facility] Work Phone: Urine creatinine measurement (mass/volume)on 08-27-2021 Creatinine (U) [Mass/Vol] 54.80 mg/dL NO RANGE EST. [facility] Work Phone: Whole blood hemoglobin A1c/t otal hemoglobin ratio (mass fraction)on 08-27-2021 HbA1c (Bld) [Mass fraction] 7.4 % 3.8-5.6 [facility] Work Phone: Comment on above: Normal < 5.7 % Predi abetic 5.7 - 6.4 % Diabetic >or= 6.5 % Please note range changes. Vital Signs Date Time Vital Sign Value Performing Clinician Facility 12-25-2024 12:33-0400 Body height 160.[address] Scott Steele MD Work Phone: [facility] 12-25-2024 12:33-0400 Body mass index (BMI) [Ratio] 31.4 kg/m2 Dr. Scott Steele MD Work Phone: [facility] 12-25-2024 12:33-0400 Body temperature 97.2 [degF] Dr. Scott Steele MD Work Phone: 5(658)226-380388 [place] [address] 12-25-2024 12:33-0400 Body weight 80.[address] Scott Steele MD Work Phone: 1(770)196-027088 [place] [address] 12-25-2024 12:33-0400 Diastolic blood pressure 59 mm[Hg] Dr. Scott Steele MD Work Phone: 4(477)144-544288 [place] [address] 12-25-2024 12:33-0400 Heart rate 70 /min Dr. Scott Steele MD Work Phone: 4(421)667-882288 [place] [address] 12-25-2024 12:33-0400 Respiratory rate 16 /min Dr. Scott Steele MD Work Phone: 0([phone])350-174588 [place] [address] 12-25-2024 12:33-0400 SaO2% (BldA) [Mass fraction] 97 % Dr. Scott Steele MD Work Phone: 2(136)126-348288 [place] [address] 12-25-2024 12:33-0400 Systolic blood pressure 140 mm[Hg] Dr. Scott Steele MD Work Phone: 3(391)786-942288 [place] [address] 12-04-2024 10:21-0400 Body height 160.[address] Scott Steele MD Work Phone: 9(128)375-534205 [place] [address] 12-04-2024 10:21-0400 Body mass index (BMI) [Ratio] 31.2 kg/m2 Dr. Scott Steele MD Work Phone: 0(646)206-156388 [place] [address] 12-04-2024 10:21-0400 Body weight 79.[address] Scott Steele MD Work Phone: 1(383)107-294388 [place] [address] 11-26-2024 10:26-0400 Body height 160.[address] Scott Steele MD Work Phone: 3(308)025-523688 [place] [address] 11-26-2024 10:26-0400 Body mass index (BMI) [Ratio] 31.4 kg/m2 Dr. Scott Steele MD Work Phone: [facility] 11-26-2024 10:26-0400 Body temperature 97.7 [degF] Dr. Scott Steele MD Work Phone: [facility] 11-26-2024 10:26-0400 Body weight 80.[address] Scott Steele MD Work Phone: [facility] 11-26-2024 10:26-0400 Diastolic blood pressure 72 mm[Hg] Dr. Scott Steele MD Work Phone: [facility] 11-26-2024 10:26-0400 Heart rate 77 /min Dr. Scott Steele MD Work Phone: [facility] 11-26-2024 10:26-0400 Respiratory rate 18 /min Dr. Scott Steele MD Work Phone: [facility] 11-26-2024 10:26-0400 SaO2% (BldA) [Mass fraction] 94 % Dr. Scott Steele MD Work Phone: [facility] 11-26-2024 10:26-0400 Systolic blood pressure 127 mm[Hg] Dr. Scott Steele MD Work Phone: [facility] 10-28-2024 09:05-0400 Body height 160.[address] Scott Steele MD Work Phone: [facility] 10-28-2024 09:04-0400 Body mass index (BMI) [Ratio] 31.1 kg/m2 Dr. Scott Steele MD Work Phone: [facility] 10-28-2024 09:04-0400 Body temperature 98.7 [degF] Dr. Scott Steele MD Work Phone: [facility] 10-28-2024 09:04-0400 Body weight 79.[address] Scott Steele MD Work Phone: [facility] 10-28-2024 09:04-0400 Diastolic blood pressure 74 mm[Hg] Dr. Scott Steele MD Work Phone: [facility] 10-28-2024 09:04-0400 Heart rate 73 /min Dr. Scott Steele MD Work Phone: [facility] 10-28-2024 09:04-0400 Respiratory rate 18 /min Dr. Scott Steele MD Work Phone: [facility] 10-28-2024 09:04-0400 SaO2% (BldA) [Mass fraction] 98 % Dr. Scott Steele MD Work Phone: 6(871)957-471905 [place] [address] 10-28-2024 09:04-0400 Systolic blood pressure 135 mm[Hg] Dr. Scott Steele MD Work Phone: 3([phone])025-255271 [address] 09-04-2024 11:50-0400 Body temperature 99.6 [degF] Dr. Scott Steele MD Work Phone: 4([phone])905-015405 [place] [address] 09-04-2024 11:50-0400 Diastolic blood pressure 61 mm[Hg] Dr. Scott Steele MD Work Phone: 3(309)834-365805 [place] [address] 09-04-2024 11:50-0400 Heart rate 60 /min Dr. Scott Steele MD Work Phone: 9(687)248-334605 [place] [address] 09-04-2024 11:50-0400 Respiratory rate 16 /min Dr. Scott Steele MD Work Phone: 4(751)490-083605 [place] [address] 09-04-2024 11:50-0400 SaO2% (BldA) [Mass fraction] 97 % Dr. Scott Steele MD Work Phone: [facility] 09-04-2024 11:50-0400 Systolic blood pressure 132 mm[Hg] Dr. Scott Steele MD Work Phone: [facility] 09-04-2024 09:30-0400 Body height 160.[address] Scott Steele MD Work Phone: [facility] 09-04-2024 09:30-0400 Body mass index (BMI) [Ratio] 29.2 kg/m2 Dr. Scott Steele MD Work Phone: [facility] 09-04-2024 09:30-0400 Body weight [address] Scott Steele MD Work Phone: [facility] 04-05-2024 10:06-0500 Body height 157.5 cm Juan Ramon Purcell MD Work Phone: [facility] 04-05-2024 10:06-0500 Body mass index (BMI) [Ratio] 27.98 kg/m2 Juan Ramon Purcell MD Work Phone: [facility] 04-05-2024 10:06-0500 Body temperature 97.39 [degF] Juan Ramon Purcell MD Work Phone: [facility] 04-05-2024 10:06-0500 Body weight 69.4 kg Juan Ramon Purcell MD Work Phone: [facility] 04-05-2024 10:06-0500 Diastolic blood pressure 86 mm[Hg] Juan Ramon Purcell MD Work Phone: [facility] 04-05-2024 10:06-0500 Heart rate 82 /min Juan Ramon Purcell MD Work Phone: [facility] 04-05-2024 10:06-0500 SaO2% (BldA) [Mass fraction] 99 % Juan Ramon Purcell MD Work Phone: [facility] 04-05-2024 10:06-0500 Systolic blood pressure 133 mm[Hg] Juan Ramon Purcell MD Work Phone: [facility] Encounters Encounter Date Encounter Type Care Provider Facility Start: 01-06-2025 ambulatory Scott Steele Facilit y:[facility] Start: 01-01-2025 ambulatory Scott Steele Facilit y:[facility] Start: 12-25-[address] Kong Vieira MD -[facility] Start: 12-24-2024 ambulatory Scott Steele Facilit y:[facility] Start: 12-20-2024 End: 12-20-[address] Scott Steele MD Work Phone: -Cat Scan [facility] Start: 12-20-2024 End: 12-20-[address] Kong Murrell DO -Cat Scan [facility] Work Phone: Start: 12-20-2024 End: 12-20-2024 ambulatory Scott Steele Facility:[facility] Start: 12-18-2024 End: 12-18-2024 ambulatory SCOTT STEELE MD Facility:[facility] Start: 12-18-2024 End: 12-18-[address] Scott Steele MD -[facility] Start: 12-18-2024 End: 12-18-2024 ambulatory Scott Steele Facility:[facility] Start: 12-04-2024 End: 12-04-[address] Kong Murrell DO -[facility] Work Phone: Start: 12-04-2024 End: 12-04-[address] Scott Steele MD Work Phone: -[facility] Start: 11-26-2024 End: 11-26-[address] Kong Vieira MD -[facility] Work Phone: Start: 11-26-2024 End: 11-26-[address] Scott Steele MD Work Phone: -[facility] Start: 11-20-2024 End: 11-20-[address] Scott Steele MD Work Phone: -Cat Scan [facility] Start: 11-20-2024 End: 11-20-[address] Kong Vieira MD -Cat Scan [facility] Work Phone: Start: 11-20-2024 End: 11-20-2024 ambulatory Scott Steele Facility:[facility] Start: 11-12-2024 End: 11-12-[address] Scott Steele MD Work Phone: -Radiology [facility] Start: 11-12-2024 End: 11-12-[address] Kong Vieira MD -Radiology [facility] Work Phone: Start: 11-12-2024 End: 11-12-2024 ambulatory Scott Steele Facility:[facility] Start: 11-06-2024 End: 11-06-[address] Scott Steele MD Work Phone: [facility] Work Phone: Start: 11-06-2024 End: 11-06-[address] Kong Vieira MD -[facility] Work Phone: Start: 11-06-2024 End: 11-06-2024 ambulatory Scott Steele Facility:[facility] Start: 10-28-[address] Kong Vieira MD -[facility] Start: 10-28-2024 End: 10-28-[address] Kong Vieira MD -[facility] Work Phone: Start: 10-28-2024 End: 10-28-[address] Scott Steele MD Work Phone: [facility] Work Phone: Start: 10-25-2024 End: 10-25-[address] Scott Steele MD Work Phone: [facility] Work Phone: Start: 10-25-2024 End: 10-25-[address] Scott Steele MD -[facility] Work Phone: Start: 10-25-2024 End: 10-25-2024 ambulatory Scott Steele Facility:[facility] Start: 10-17-2024 [facility] Work Phone: Start: 10-17-2024 ambulatory Theresa Serna Facility :[facility] Start: 10-09-2024 End: 10-09-[address] Scott Steele MD Work Phone: [facility] Work Phone: Start: 10-09-2024 End: 10-09-[address] Scott Steele MD -Laboratory [facility] Start: 10-09-2024 End: 10-09-2024 ambulatory Scott Steele Facility:[facility] Start: 10-04-2024 End: 10-04-2024 ambulatory JUAN RAMON PURCELL Facility:[facility] Start: 09-04-2024 ambulatory Scott Steele Facilit y:[facility] Start: 09-04-2024 Non-patient / Non-visit Karri Banegas DO -[facility] Start: 09-04-2024 End: 09-04-2024 Admission to same day surgery center Karri Banegas DO -Endoscopy Work Phone: Start: 09-04-2024 End: 09-04-[address] Scott Steele MD Work Phone: [facility] Work Phone: Start: 06-28-2024 End: 06-28-2024 Patient encounter procedure Karri Banegas DO -[facility] Work Phone: Start: 06-28-2024 End: 06-28-2024 ambulatory Karri Banegas Facility:[facility] Start: 05-07-2024 End: 05-08-2024 ambulatory Juna Ramon Purcell MD Work Phone: Hematology/Oncology Comment on above: Blood tests Start: 04-30-2024 End: 04-30-2024 ambulatory Scott Steele Facility:[facility] Start: 04-05-2024 End: 04-05-2024 ambulatory Juan Ramon Purcell MD Work Phone: Hematology/Oncology Comment on above: Monoclonal gammopath y (Primary Dx) Start: 04-05-2024 End: 04-05-2024 Patient encounter procedure Juan Ramon Purcell MD Work Phone: Hematology/Oncology Start: 03-12-2024 End: 03-12-2024 ambulatory Scott Steele Facility:[facility] Start: 08-23-2023 End: 08-23-2023 ambulatory [facility] Work Phone: Start: 08-23-2023 End: 08-23-2023 Patient encounter procedure [facility] Start: 06-13-2023 End: 06-13-2023 ambulatory [facility] Work Phone: Start: 06-13-2023 End: 06-13-2023 [facility] Start: 04-21-2023 End: 04-21-2023 ambulatory [facility] Work Phone: Start: 04-21-2023 End: 04-21-2023 Patient encounter procedure [facility] Start: 03-21-2023 End: 03-21-2023 Patient encounter procedure [facility] Start: 12-16-2022 End: 12-16-2022 ambulatory [facility] Work Phone: Start: 12-16-2022 End: 12-16-2022 Patient encounter procedure [facility] Start: 09-21-2022 End: 09-21-2022 ambulatory [facility] Work Phone: Start: 09-21-2022 End: 09-21-2022 Patient encounter procedure [facility] Start: 09-15-2022 End: 09-15-2022 ambulatory [facility] Work Phone: Start: 09-15-2022 End: 09-15-2022 Patient encounter procedure [facility] Start: 07-28-2022 End: 07-28-2022 ambulatory [facility] Work Phone: Start: 07-28-2022 End: 07-28-2022 Patient encounter procedure [facility] Start: 06-20-2022 End: 06-20-2022 ambulatory [facility] Work Phone: Start: 06-20-2022 End: 06-20-2022 Patient encounter procedure [facility] Start: 05-17-2022 End: 05-17-2022 ambulatory [facility] Work Phone: Start: 05-17-2022 End: 05-17-2022 Patient encounter procedure [facility] Start: 03-15-2022 End: 03-15-2022 ambulatory [facility] Work Phone: Start: 03-15-2022 End: 03-15-2022 Patient encounter procedure [facility] Start: 03-09-2022 End: 03-09-2022 ambulatory [facility] Work Phone: Start: 03-09-2022 End: 03-09-2022 Patient encounter procedure [facility] Start: 01-19-2022 End: 01-19-2022 ambulatory [facility] Work Phone: Start: 01-19-2022 End: 01-19-2022 Patient encounter procedure [facility] Start: 11-30-2021 End: 11-30-2021 Patient encounter procedure [facility] Start: 09-09-2021 End: 09-09-2021 Patient encounter procedure [facility]Ultrasound, [facility] Start: 08-27-2021 End: 08-27-2021 Patient encounter procedure [facility] Start: 07-22-2021 End: 07-22-2021 Patient encounter procedure [facility] Start: 05-27-2021 End: 05-27-2021 Patient encounter procedure [facility] Start: 07-27-2017 Patient encounter status Juan Ramon Purcell MD Work Phone: [facility] Start: 01-06-2014 End: 06-08-2016 Ophthalmic examination and evaluation Juan Ramon Purcell MD Work Phone: [facility] Procedures Date Procedure Procedure Detail Performing Clinician Start: 12-20-2024 MRI of lower extremity Dr. Scott Steele MD Work Phone: Start: 11-20-2024 CT of soft tissues o f neck with contrast Dr. Scott Steele MD Work Phone: Start: 11-20-2024 CT of thorax, abdome n and pelvis with contrast Dr. Scott Steele MD Work Phone: Start: 11-12-2024 Complete x-ray skele grecia survey [...] Phone: Comment on above: Performed at: [address] [id number] Director: Han Das PhD, Phone: [phone] Start: 10-28-2024 Serum inorganic phos phate measurement [...] DTaP,Tdap,Td Vaccine (3 - Td or Tdap) [facility] Start: 10-28-2024 C reactive protein [Mass/volume] in Serum or Plasma [facility] Start: 10-28-2024 CBC W Auto Different ial panel - Blood [facility] Start: 10-28-2024 Cobalamin (Vitamin B 12) [Mass/volume] in Serum or Plasma [facility] Start: 10-28-2024 Comprehensive metabo lic 2000 panel - Serum or Plasma [facility] Start: 10-28-2024 Erythrocyte sediment ation rate [facility] Start: 10-28-2024 Ferritin [Mass/volum e] in Serum or Plasma [facility] Start: 10-28-2024 End: 10-28-2024 Gamma glutamyl transferase measurement [facility] Start: 10-28-2024 Immunoglobulin measurement [facility] Start: 10-28-2024 Iron and Iron bindin g capacity panel - Serum or Plasma [facility] Start: 10-28-2024 End: 10-28-2024 Laboratory test [facility] Start: 10-28-2024 Lactate dehydrogenas e measurement [facility] Start: 10-28-2024 Magnesium measurement [facility] Start: 10-28-2024 Procedure [facility] Start: 10-28-2024 Reticulocyte count [facility] Start: 10-28-2024 End: 10-28-2024 Serum immunofixation [facility] Start: 10-28-2024 Serum inorganic phos phate measurement [facility] Start: 10-28-2024 Urate [Mass/volume] in Serum or Plasma [facility] Start: 10-28-2024 [facility] Start: 09-04-2024 Colonoscopy flx dx w/collj spec when pfrmd DIAGNOSTIC COLONOSCOPY [facility] Start: 09-04-2024 Patient discharge [facility] Start: 04-05-2024 End: 07-05-2024 PROTEIN ELECT RND UR W/INTERP [facility] Comment on above: Expected: 04/05/2024 , Expires: 07/05/2024 Start: 02-25-2024 Screening for malign ant neoplasm of colon [facility] Start: 05-22-2023 Advance Directive Discussion Advance Directive Discussion [facility] Start: 2022 Screening for osteoporosis Bone Density Screening [facility] Start: 08-03-2019 Hepatitis B screening Urine Al bumin:Creatinine Ratio [facility] Start: 05-31-2019 Diabetic foot examination Diabetic F oot Exam [facility] Start: 05-17-2019 Glaucoma screening Dilated Retinal E xam [facility] Start: 02-02-2019 Hemoglobin A1c measurement HbA1C [facility] Start: 01-29-2019 Hepatitis B surface antibody level LDL Cholesterol [facility] Start: 08-22-2018 Screening for malign ant neoplasm of breast Mammogram Screening [facility] Start: 08-21-2018 Screening for malign ant neoplasm of colon Fecal Occult Blood [facility] Start: 2002 Screening for malign ant neoplasm of colon [facility] Start: 1975 Annual PCP Team Child Watch Attendant bella Disease Visit Annual PCP Team Chronic Disease Visit [facility] Start: 1975 Anxiety Screening Anxiety Screening [facility] Start: 1975 BP Controlled (<130/80) BP Controlle d (<130/80) [facility] Start: 1975 Depression Screening Depression Scre ening [facility] Alanine aminotransfe rase [Enzymatic activity/volume] in Serum or Plasma [facility] Albumin [Mass/volume ] in Serum or Plasma [facility] Albumin [Moles/volum e] in Serum or Plasma [facility] Albumin/Globulin ratio [facility] Alkaline phosphatase [Enzymatic activity/volume] in Serum or Plasma [facility] Anion gap in Serum o r Plasma [facility] End: 04-05-2025 Basic metabolic 2000 panel - Serum or Plasma BASIC METABOLIC PANEL Lab Routine Monoclonal gammopathy Every 6 months for 2 Occurrences starting 04/05/2024 until 04/05/2025, 1 completed [facility] Comment on above: Every 6 months for 2 Occurrences starting 04/05/2024 until 04/05/2025, 1 completed Bilirubin, total measurement [facility] BUN/Creatinine ratio [facility] Calcium [Mass/volume ] in Serum or Plasma [facility] Carbon dioxide, tota l [Moles/volume] in Central venous blood [facility] End: 04-05-2025 CBC W Auto Differential panel - Blood COMPLETE BLOOD COUNT AND DIFFERENTIAL Lab Routine Monoclonal gammopathy Every 6 months for 2 Occurrences starting 04/05/2024 until 04/05/2025, 1 completed [facility] Work Phone: Comment on above: Every 6 months for 2 Occurrences starting 04/05/2024 until 04/05/2025, 1 completed CBC W Auto Different ial panel - Blood [facility] Comprehensive metabo lic 2000 panel - Serum or Plasma [facility] Creatinine [Mass/vol ume] in Serum or Plasma [facility] CT Abdomen and Pelvi s W contrast IV [facility] CT Neck W contrast IV [facility] Electrophoresis: [id number] [facility] Electrophoresis: jaime ma globulin [facility] Erythrocyte mean corpuscular volume determination [facility] Erythrocyte sediment ation rate [facility] Ferritin [Mass/volum e] in Serum or Plasma [facility] Folate [Moles/volume ] in Serum or Plasma [facility] Folate [Moles/volume ] in Serum or Plasma [facility] Gliadin peptide IgA Ab [Units/volume] in Serum [facility] Gliadin peptide IgG Ab [Units/volume] in Serum [facility] Globulin measurement [facility] Glucose [Mass/volume ] in Serum or Plasma [facility] Hematocrit [Volume Fraction] of Blood [facility] Hemoglobin [Mass/vol ume] in Blood [facility] Hepatitis B virus co re Ab [Presence] in Serum [facility] Work Phone: IgA [Mass/volume] in Serum or Plasma [facility] IgG [Mass/volume] in Serum or Plasma [facility] IgM [Mass/volume] in Serum or Plasma [facility] Immunoglobulin measurement [facility] In-vitro immunologic test [facility] Work Phone: Iron [Mass/mass] in Unspecified specimen [facility] Iron and Iron bindin g capacity panel - Serum or Plasma [facility] Iron saturation [Mas s Fraction] in Serum or Plasma [facility] End: 04-05-2025 KAPPA/LA,FREE,SER KAPPA/LA,FREE,SER Lab Routine Monoclonal gammopathy Every 6 months for 2 Occurrences starting 04/05/2024 until 04/05/2025 [facility] Comment on above: Every 6 months for 2 Occurrences starting 04/05/2024 until 04/05/2025 Ulmer/lambda light c victor manuel ratio [facility] Laboratory data interpretation [facility] Lactate dehydrogenas e measurement [facility] Lambda light chains. free [Mass/volume] in Serum or Plasma [facility] Leukocytes [#/volume ] in Blood [facility] Mean corpuscular hemoglobin concentration determination [facility] Mean corpuscular hemoglobin determination [facility] Measurement of immunoglobulin A in serum specimen [facility] Measurement of occul t blood in stool specimen using immunoassay [facility] Measurement of renal function [facility] End: 04-05-2025 MONOCLONAL PROTEIN, SERUM (BLOOD) MONOCLONAL PROTEIN, SERUM (BLOOD) Lab Routine Monoclonal gammopathy Every 6 months for 2 Occurrences starting 04/05/2024 until 04/05/2025 [facility] Comment on above: Every 6 months for 2 Occurrences starting 04/05/2024 until 04/05/2025 MONOCLONAL PROTEIN, SERUM (BLOOD) MONOCLONAL PROTEIN, SERUM (BLOOD) Lab Routine Monoclonal gammopathy 04/05/2024 10:52 AM EST [facility] Mycobacterium tuberculosis tuberculin stimulated gamma interferon [Presence] in Blood [facility] Work Phone: Neutrophil count [facility] Neutrophil percent differential count [facility] Patient referral [facility] Work Phone: Platelets [#/volume] in Blood [facility] Potassium measurement [facility] Protein electrophore sis panel - Serum or Plasma [facility] End: 04-05-2025 PROTEIN ELECTROPHORESIS SERUM W/INTERP PROTEIN ELECTROPHORESIS SERUM W/INTERP Lab Routine Monoclonal gammopathy Every 6 months for 2 Occurrences starting 04/05/2024 until 04/05/2025 [facility] Comment on above: Every 6 months for 2 Occurrences starting 04/05/2024 until 04/05/2025 PROTEIN ELECTROPHORE SIS SERUM W/INTERP PROTEIN ELECTROPHORESIS SERUM W/INTERP Lab Routine Monoclonal gammopathy 04/05/2024 10:52 AM EST [facility] Red blood cell count [facility] Red cell distributio n width determination [facility] Serum chloride measurement [facility] Serum immunofixation [facility] Sodium measurement [facility] Tissue transglutamin ase IgA Ab [Units/volume] in Serum [facility] Total iron binding capacity measurement [facility] Total protein measurement [facility] Urea nitrogen [Mass/volume] in Serum or Plasma [facility] Urine kappa light ch ain measurement [facility] Vitamin B12 measurement [facility] XR Bones Survey Views [facility] Immunizations Immunization Date Immunization Notes Care Provider Trevor lópez 03-14-2018 influenza, seasonal, injectable Juan Ramon Purcell MD Work Phone: [facility] 01-18-2017 influenza, injectabl e, quadrivalent, preservative free Juan Ramon Purcell MD Work Phone: [facility] 04-19-2016 influenza, injectabl e, quadrivalent, contains preservative Juan Ramon Purcell MD Work Phone: [facility] 07-22-2015 pneumococcal polysaccharide vaccine, 23 valent Juan Ramon Purcell MD Work Phone: [facility] Work Phone: 01-08-2015 tetanus toxoid, redu jose manuel diphtheria toxoid, and acellular pertussis vaccine, adsorbed Juan Ramon Purcell MD Work Phone: [facility] 05-09-2014 influenza, seasonal, injectable Juan Ramon Purcell MD Work Phone: [facility] 05-09-2014 pneumococcal conjuga te vaccine, 13 valent Juan Ramon Purcell MD Work Phone: [facility] Payers Date Payer Category Payer Self-pay [id number] 2023 Private Health Insurance [facility] AARP SUPPLEMENT [id number] 2023-Present [phone] [address] [place] [address] Indemnity [id number] 2023 Unknown [id number] 2022 Medicare MEDICARE MEDICAR E A AND B [id number] 2022-Present [phone] [place] [address] Medicare [id number] 2022 Medicare [id number] 1955 Unknown [id number] .627 Unknown [id number] Unknown [id number] 2.16.840.1.760473.3.579.2 .462 Unknown [id number] 2.16.840.1.082691.3.579.2 .462 Unknown [id number] 2.16.840.1.600371.3.579.2 .462 Unknown [id number] 2.16.840.1.945871.3.579.2 .462 Unknown [id number] 2.16.840.1.930536.3.579.2 .462 Unknown [id number] 2.16.840.1.465864.3.579.2 .462 Unknown [id number] 2.16.840.1.073579.3.579.2 .462 Unknown [id number] 2.840.1.580547.3.579.2 .462 Unknown [id number] 2.16.840.1.616289.3.579.2 .462 Unknown [id number] 2.16.840.1.676071.3.579.2 .462 Unknown [id number] 2.16.840.1.215022.3.579.2 .462 Unknown [id number] 2.16.840.1.487624.3.579.2 .462 Unknown [id number] 2.16.840.1.427490.3.579.2 .462 Unknown [id number] 2.16.840.1.825721.3.579.2 .462 Unknown [id number] 2.16.840.1.915489.3.579.2 .462 Unknown [id number] 2.16.840.1.863800.3.579.2 .462 Unknown [id number] 2.16.840.1.636916.3.579.2 .462 Unknown [id number] 2.16.840.1.244030.3.579.2 .462 Unknown [id number] 2.16.840.1.598612.3.579.2 .462 Social History Date Type Detail Facility Start: 02-20-2019 End: 02-20-2019 Tobacco smoking status NHIS Unknown if ever smoked [facility] Start: 02-05-2019 Non-smoker [facility] Start: 1955 Sex Assigned At Female [facility] Start: 02-12-2014 End: 08-29-2024 Tobacco smoking status NHIS Never smoked tobacco [facility] Start: 02-12-2014 Tobacco use and exposure Smokeless tobacco non-user [facility] Start: 04-05-2024 Alcoholic beverage intake Current non-drinker of alcohol (finding) [facility] Start: 02-02-2018 End: 04-05-2024 History of Social function [facility] Start: 02-02-2018 End: 04-05-2024 Tobacco use panel [facility] Adult Depression Screening Assessment 0 [facility] Start: 1955 Sex assigned at Not on file [facility] Start: 09-04-2024 Sex Female (finding) [facility] NEGATED: Highlighted row Not [facility] Goals Date Patient Goal Desired Activity /State Mental Status Date Assessment Result Facility 12-25-2024 Cognitive function Voice/Name [facility] Work Phone: 09-04-2024 Cognitive function Voice/Name [facility] Work Phone: Clinical Notes 04-05-2024 to 12-23-2024 Note Date & Type Note Facility 12-23-2024 Radiology Diagnostic study note [facility] [address] [place], [place] [address] Extremity Lower without Contra MR#: [id number] Acct: [id number] Name: MARTHA FABIAN Rep #: [id number] : 1955 F 69 From: Harlan Whelan MD PCP: Dr. Scott Steele MD Status: RE G CLI Study:Extremity Lower without Contra Date of Exam: 12/20/24 Exam# [id number] Ordering Dr: Kong Murrell DO PROCEDURE: EXTREMITY LOWER WITHOUT CONTRA 12/20/2024 REASON FOR EXAM: TEMPLATING FOR RIGHT MIKE TECHNIQUE: EXTREMITY LOWER WITHOUT CONTRA Coronal and Sagittal reconstruction series were provided. CONTRAST: None One or more dose reduction techniques were used (e.g., Automated exposure control, adjustment of the mA and/or kV according to patient size, use of iterative reconstruction technique). RADIATION DOSE SUMMARY: CTDlvol: 13.12 mGy DLP: 715.87 mGycm COMPARISON: None FINDINGS: Imaging of the right hip was performed. There is a marked degree of joint spacenarrowing with subchondral cystic changes of the acetabulum and femoral head. Degenerative spur formation. Possible avascular necrosis. The left hip joint is unremarkable. Imaging of the knee joints was obtained. Mild degree of joint space narrowing involving the medial compartment of the knee joint. CT/Extremity Lower without Contra IMPRESSION: Marked degree of osteoarthritis of the right hip joint with subchondral cystic changes in the right femoral head and right acetabulum with new bone formation. Avascular necrosis should be ruled out. Reading Location: [id number] CC: Dr. Scott Steele MD; Dr. Kong Murrell DO ~ Product Support Engineer: Signed [facility] 11-26-2024 Progress note [facility] 11-21-2024 Radiology Diagnostic study note [facility] [address] [place] [address] [id number] Soft Tissue Neck WITH Contrast MR#: [id number] Acct: [id number] Name: MATRHA FABIAN Rep #: [id number] : 1955 F 69 From: Duarte Thomas MD PCP: Dr. Scott Steele MD Status: RE G CLI Study:Soft Tissue Neck WITH Contrast Date of Exam: 11/20/24 Exam# [id number] Ordering Dr: Temo Vieira MD PROCEDURE: SOFT TISSUE NECK WITH CONTRAST 11/20/2024 REASON FOR EXAM: MACROGLOBULINEMIA TECHNIQUE: SOFT TISSUE NECK WITH CONTRAST CONTRAST: The amount of contrast given is not specified. One or more dose reduction techniques were used (e.g., Automated exposure control, adjustment of the mA and/or kV according to patient size, use of iterative reconstruction technique). RADIATION DOSE SUMMARY: CTDlvol: 15.20 mGy DLP: 1776 dot 3 9 mGycm FINDINGS: Symmetric appearance of the orbits. Normal nasopharynx and pterygoid palatine fossa. Normal parotid glands are noted. The oral cavity including the tongue appear symmetric. Normal submandibular glands. No mucosal asymmetry of the palatine tonsils. Normal aryepiglottic folds and epiglottis. Normal vocal folds and thyroid. Intact thoracic inlet. No enlarged cervical lymph nodes. No bony destructive or lucent changes. CT/Soft Tissue Neck WITH Contrast IMPRESSION: Study within normal limits Reading Location[facility] CC: Dr. Scott Steele MD; Dr. Kong Vieira MD ~ Product Support Engineer: Signed [facility] 11-21-2024 Radiology Diagnostic study note [facility] [address] [place] [id number] Chest, Abd, Pel w/Contrast MR#: [id number] Acct: [id number] Name: MARTHA FABIAN Rep #: [id number] : 1955 F 69 From: Anabel Calero MD PCP: Dr. Scott Steele MD Status: RE G CLI Study:CT Chest, Abd, Pel w/Contrast Date of E xam: 11/20/24 Exam# [id number] Ordering Dr: Temo Vieira MD PROCEDURE: CT CHEST, ABD, PEL W/CONTRAST 11/20/2024 REASON FOR EXAM: IV ONLY-MACROGLOBULINEMIA TECHNIQUE: Chest, abdomen and pelvis CT with intravenous contrast. Coronal and Sagittal reconstruction series were provided. One or more dose reduction techniques were used (e.g., Automated exposure control, adjustment of the mA and/or kV according to patient size, use of iterative reconstruction technique. PATIENT PREPARATION: Per protocol ORAL CONTRAST TYPE: None. AMOUNT: mL CONTRAST: Isovue 370 VOLUME: 98mL Gauge IV RADIATION DOSE SUMMARY: CTDlvol: 70 mGy DLP: 1776 mGycm COMPARISON: Bone survey 11/13/2024 FINDINGS: Unremarkable base of neck and axilla. Thoracic spine degeneration. Normal esophagus. Upper limits of normal heart size. No acute vascular pathology. No acute chest wall findings. Central airways patent. Dependent atelectasis. No consolidation, effusion, or pneumothorax. No suspicious lung nodule. Normal gallbladder. Upper abdominal solid organs show no acute findings. Thereis diffuse hepatic steatosis. Periportal adenopathy, often related to medical liver disease. No hydronephrosis or ureteral stone. Normal bladder. Status post hysterectomy. No retroperitoneal or pelvic adenopathy. No free air. Nondistended bowel. Normal appendix. No acute large bowel findings. Lumbar spine degeneration. No acute abdominal wall findings. Advanced right hip osteoarthritis possibly on a posttraumatic basis. CT/CT Chest, Abd, Pel w/Contrast IMPRESSION: No evidence for chest, abdomen, or pelvic metastatic disease. Reading Location: [place] [address] CC: Dr. Scott Steele MD; Dr. Kong Vieira MD ~ Product Support Engineer: Signed [facility] 11-13-2024 Radiology Diagnostic study note [facility] [address] [place] [address] Bone Survey Comp(Axial&Append) MR#: [id number] Acct: [id number] Name: MARTHA FABIAN Rep #: [id number] : 1955 F 69 From: Romana Bobo MD PCP: Dr. Scott Steele MD Status: RE G CLI Study:Bone Survey Comp(Axial&Append) Date of Exam: 11/12/24 Exam# [id number] Ordering Dr: Temo Vieira MD PROCEDURE: BONE [...] suspicious bone lesion is identified. Reading Location: [place] [address] CC: Dr. Scott Steele MD; Dr. Kong Vieira MD ~ Product Support Engineer: Signed [facility] 10-25-2024 Radiology Diagnostic study note [facility] [address] [place] [address] Hips B/L min 2 views w/ Pelvis MR#: [id number] Acct: [id number] Name: MARTHA FABIAN Rep #: [id number] : 1955 From: Fadia Zarate MD PCP: Dr. Scott Steele MD Status: RE G CLI Study:Hips B/L min 2 views w/ Pelvis Date of Exam: 10/25/24 Exam# [id number] Ordering Dr: Scott Steele MD EXAM: XR [...] with suggestion of avascular necrosis. Reading Location: [facility] CC: Dr. Scott Steele MD ~ Product Support Engineer: Signed [facility] 10-25-2024 Radiology Diagnostic study note [facility] [address] [place] [address] Lumbar Spine 2 or 3 Views MR#: [id number] Acct: [id number] Name: MARTHA FABIAN Rep #: [id number] : 1955 From: Fadia Zarate MD PCP: Dr. Scott Steele MD Status: RE G CLI Study:Lumbar Spine 2 or 3 Views Date of Exam: 10/25/24 Exam# [id number] Ordering Dr: Scott Steele MD EXAM: XR [...] IMPRESSION: Degenerative changes as above. Reading Location: [facility] CC: Dr. Scott Steele MD ~ Product Support Engineer: Signed [facility] 09-04-2024 Consult note [facility] 09-04-2024 Consult note Note Date/Time September 04, 2024 9:19am [facility] Medical Records Department [address] [place] [address] Pre-Anesthesia Evaluation 09/04/24 0918 MR#: [id number] Acct: [id number] Name: MARTHA FABIAN Rep #:[id number] : 1955 69 From: Dennis Chandler MD PCP: Dr. 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 Female Yes 08/29/24 14:31 HX of Motion Sickness No 08/29/24 14:31 HX of N/V After Surgery Yes 08/29/24 14:31 Non-Smoker Yes 08/29/24 14:31 Duration of Surgery greater No 08/29/24 14:31 than 60 minutes Number of Risk Factors 3 08/29/24 14:31 PONV Score Moderate Risk 08/29/24 14:31 Respiratory Assessment 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: Respiratory Tract Infection Hx - 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 Hx Respiratory Tract Infection No 08/29/24 14:31 STOP Sleep Apnea STOP Sleep Apnea - 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: STOP Sleep Apnea - 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 Hx Hypertension Yes 08/29/24 14:31 Hx Sleep [...] Tobacco Use History 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: 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 Specify any problems FACE SWELLED WITH 2ND UNIT ( 08/29/24 14:31 40+ YRS AGO) Hx of Preganancy in last 3 No 08/29/24 14:31 Months Nurse Filling Out Transfusion EHPINE 08/29/24 14:31 & Questions: Date: 08/29/24 08/29/24 14:31 Time: 14:40 08/29/24 14:31 Patient unable to answer at this time (ie. 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 Hx Now No 08/29/24 14:31 Gestational Age (in weeks): EDC: Hx Hx Para Hx [facility] Medical History Wears dentures Wears glasses Cancer [...] MD Cosigner Signature: Date CC: ~ Signed [facility] Work Phone: 1(126) 172-715104-16-2025 Evaluation note* Diagnosis Onset Date Resolution Status Admit Date Encounter for screening colonoscopy acute September 04, 2024 9:16am Macroglobulinemia acute October 8:11am Iron deficiency chronic October 28, 2024 8:11am [facility] Work Phone: 1(524) 908-627304-16-2025 Evaluation note* Diagnosis Onset Date Resolution Status Admit Date Encounter for screening colonoscopy acute September 04, 2024 9:16am Iron deficiency chronic October 28, 2024 8:11am Macroglobulinemia chronic October 8:11am [facility] Work Phone: 1(424) 381-170604-16-2025 Evaluation note* Diagnosis Onset Date Resolution Status Admit Date Encounter for screening colonoscopy acute September 04, 2024 9:16am Iron deficiency chronic October 28, 2024 8:11am Macroglobulinemia chronic October 8:11am Hip osteoarthritis chronic November 262024 9:18am Iron deficiency chronic November 26, 2024 9:18am Macroglobulinemia chronic November 9:18am [facility] Work Phone: 1(817) 914-662404-16-2025 Evaluation note* Diagnosis Onset Date Resolution Status Admit Date Encounter for screening colonoscopy acute September 04, 2024 9:16am Iron deficiency chronic October 28, 2024 8:11am Macroglobulinemia chronic October 8:11am Hip osteoarthritis chronic November 262024 9:18am Iron deficiency chronic November 26, 2024 9:18am Macroglobulinemia chronic November 9:18am Degenerative joint disease o f right hip acute December 04, 2024 10:14am Lumbar spondylosis acute November 192024 10:14am Hip osteoarthritis chronic November 192024 10:14am Iron deficiency chronic November 10:14am Macroglobulinemia chronic December 042024 10:14am [facility] Work Phone: 1(381) 899-169204-16-2025 Consult note [facility] Medical Records Department [address] [place] [address] Anesthesia Postop Eval I 09/04/24 1112 MR#: [id number] Acct: [id number] Name: MARTHA FABIAN Rep #:[id number] : 1955 69 From: Tab Interiano PCP: Dr. Scott Steele MD Status: G [facility] Y Race: C Location: [place] [address] Anesthesia: Postop Eval I Current Vital Signs [...] Yes 09/04/24 1114 > Date _ Tab Branch Signature: Date CC: ~ Signed [facility]04-16-2025 Procedure note [facility] Medical Records Department [address] [place] [address] Operative Report - CC Letter MR#: [id number] Acct: [id number] Name: MARTHA FABIAN Rep #:[id number] : 1955 69 From: Karri Banegas DO PCP: Dr. Scott Steele MD Status:RE G [facility] 09/04/2024 Scott Steele [address] [place] [address] Re : Colonoscopy procedure for Martha Fabian [...] ~ Date Dictated: 09/04/24 1046 Date Transcribed: Product Support Engineer: RF Signed [facility]04-16-2025 Procedure note [facility] Medical Records Department [address] [place] [address] Colonoscopy Report MR#: [id number] Acct: [id number] Name: MARTHA FABIAN Rep #:[id number] : 1955 69 From: Karri Banegas DO PCP: Dr. Scott Steele MD Status:[facility] Patient Name: Martha Fabian Procedure Date: 09/04/2024 [...] was poor. Procedure Code(s): --- Professional --- 23317, 53, Colonoscopy, flexible; diagnostic, including collection of specimen(s) by brushing or washing, when performed (separate procedure) CPT copyright 2021 [employer]. All rights reserved. The codes documented in this report are preliminary and upon creche attendant review may be revised to meet current compliance requirements. Karri Banegas DO 09/04/2024 11:08:30 AM This report has been signed electronically. Number of Addenda: 0 Note Initiated On: 09/04/2024 10:46 AM 09/04/24 1108 Date _ Karri Banegas DO Cosigner Signature: Date (if indicated) CC: Dr. Scott Steele MD; Karri Banegas DO ~ Date Dictated: 09/04/24 1046 Date Transcribed: Product Support Engineer: RF Signed [facility]04-16-2025 History and physical note [facility] Medical Records Department [address] [place] [address] History & Physical Exam 09/04/24 1043 MR#: [id number] Acct: [id number] Name: MARTHA FABIAN Rep #:[id number] : 1955 69 From: Karri Banegas DO PCP: Dr. Scott Steele MD [facility] CENTER Location: [place] [address] HPI - General General Date of Admission: [...] will have an ASA of 3. Coding [facility] Medical History Wears dentures Wears glasses Cancer [...] Scott Steele MD; Karri Banegas DO~ Signed [facility]04-16-2025 [facility] Medical Records Department [address] [place] [id number] History Physical Exam 09/04/24 1043 MR#: [id number] Acct: [id number] Name: MARTHA FABIAN Rep #: [id number] : 1955 69 From: Karri Banegas DO PCP: Dr. Scott Steele MD Status:[facility] Location: [place] [address] HPI - General General Date of Admission: [...] will have an ASA of 3. Coding [facility] Medical History Wears dentures Wears glasses Cancer [...] Plan: She will undergo (more content not included)...[facility] 09-04-2024 Consult note [facility] Medical Records Department [address] [place] [address] Pre-Anesthesia Evaluation 09/04/24917 MR#: [id number] Acct: [id number] Name: MARTHA FABIAN Rep #:[id number] : 1955 69 From: Dennis Chandler MD PCP: Dr. 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 Female Yes 08/29/24 14:31 HX of Motion Sickness No 08/29/24 14:31 HX of N/V After Surgery Yes 08/29/24 14:31 Non-Smoker Yes 08/29/24 14:31 Duration of Surgery greater No 08/29/24 14:31 than 60 minutes Number of Risk Factors 3 08/29/24 14:31 PONV Score Moderate Risk 08/29/24 14:31 Respiratory Assessment 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: Respiratory Tract Infection Hx - 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 Hx Respiratory Tract Infection No 08/29/24 14:31 STOP Sleep Apnea STOP Sleep Apnea - 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: STOP Sleep Apnea - 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 Hx Hypertension Yes 08/29/24 14:31 Hx Sleep [...] Tobacco Use History 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: 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 Specify any problems FACE SWELLED WITH 2ND UNIT ( 08/29/24 14:31 40+ YRS AGO) Hx of Preganancy in last 3 No 08/29/24 14:31 Months Nurse Filling Out Transfusion [facility] 08/29/24 14:31 & Questions: Date: 08/29/24 08/29/24 14:31 Time: 14:40 08/29/24 14:31 Patient unable to answer at this time (ie. 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 09/04/24 0919 > Date _ Dennis Chandler MD Cosigner Signature: Date CC: ~ Signed [facility]02-08-2025 Consult note Author Tab Interiano [facility] Note Date/Time September 04, 2024 11: 14am [facility] Medical Records Department [address] [place] [address] Anesthesia Postop Eval I 09/04/24 1112 MR#: [id number] Acct: [id number] Name: MARTHA FABIAN Rep #:[id number] : 1955 69 From: Tab Interiano PCP: Dr. Scott Steele MD Status:RE G SDNahum Y Race: C Location: [place] [address] Anesthesia: Postop Eval I Current Vital Signs [...] Interiano Cosigner Signature: Date CC: ~ Signed [facility] Work Phone: 1(507) 813-961902-07-2025 Evaluation note* Diagnosis Onset Date Resolution Status Admit Date Encounter for screening colonoscopy acute June 28 9:51am Encounter for screening colonoscopy acute September 04, 2024 9:16am [facility] Work Phone: 1(403) 232-492512-17-2024 Telephone encounter Note* Telephone Encounter - Roxi Gutierrez RN - 05/07/2024 3:51 PM EST Per brody Reyes in 6mo. Lucero Gutierrez RN [facility] Work Phone: 1(548) 162-691512-17-2024 Miscellaneous Notes* Telephone Encounter - Roxi Gutierrez RN - 05/07/2024 3:51 PM EST Per brody Reyes in 6mo. Lucero Gutierrez RN [facility] NoteHNO ID: [id number] Author: JUAN RAMON PURCELL MD Service: ? [...] which included preparing to see the patient, [id number] patient care, completing clinical documentation, obtaining and/or reviewing separately obtained history, performing a medically appropriate examination, counseling and educating the patient/family/caregiver, ordering medications, tests, or procedures, independently interpreting results (not separately reported), and communicating results to the patient/family/caregiver. Electronically Signed: Juan Ramon Purcell MD April 05, 2024 10:20 [facility]11-15-2024 History of Present illness Narrative* Juan [...] which included preparing to see the patient, [id number] patient care, completing clinical documentation, obtaining and/or reviewing separately obtained history, performing a medically appropriate examination, counseling and educating the pat ient/family/caregiver, ordering medications, tests, or procedures, independently interpreting results (not separately reported), and communicating results to the patient/family/caregiver. Electronically Signed: Juan Ramon Purcell MD April 05, 2024 10:20 AM [facility] Author Dennis Chandler [facility] Note Date/Time September 04, 2024 12: 16pm [facility] Medical Records Department [address] [place] [address] Anesthesia Postop Eval II 09/04/246 MR#: [id number] Acct: [id number] Name: MARTHA FABIAN Rep #:[id number] : 1955 69 From: Dennis Chandler MD PCP: Dr. Scott Steele MD Status:RE G SDC Y Race: C Location: [place] [address] Anesthesia Postop Eval I Sum Postop Eval [...] MD Cosigner Signature: Date CC: ~ Signed [facility] Work Phone: Evaluation noteNo assessment information available [facility] Work Phone: Evaluation note* Diagnosis Monoclonal gammopathy- Primary Monoclonal paraproteinemia documented in this encounter [facility] Author Karri Banegas [facility] Note Date/Time September 04, 2024 10: 45am [facility] Medical Records Department [address] [place] [address] History & Physical Exam 09/04/24 1043 MR#: [id number] Acct: [id number] Name: MARTHA FABIAN Rep #:[id number] : 1955 69 From: Karri Banegas DO PCP: Dr. Scott Steele MD Status:[facility] Location: [place] [address] HPI - General General Date of Admission: [...] will have an ASA of 3. Coding [facility] Medical History Wears dentures Wears glasses Cancer [...] Scott Steele MD; Karri Banegas DO~ Signed [facility] Work Phone: Progress note Author Kong Vieira [facility] Note Date/Time November 26, 2024 11:15 am [facility] [address] [address] OFFICE VISIT Date of Service: 11/26/24 1025 MR#: [id number] Acct: [id number] Name: MARTHA FABIAN Rep #: [id number] : 1955 From: Kong Vieira MD Age/Sex: 69/F Location: [facility] Status: Signed HPI Subjective Date of Service 11/26/24 Chief Complaint Follow up for abnormal serum protein. History of Present Illness 69-year-old woman was found to have high IgM level with Slight increase in IgG serum light chains at [facility]. She does not want to go back to [facility] so comes in for further evaluation. She denies pain, fever, weight loss or night sweats. She has been found to have iron deficiency and currently taking oral iron. She had colonoscopy on 09/04/2024 which showed diverticulosis with stool in the colon. Had blood work, CT done to R/O malignancy and comes for follow up. Has pain R hip. [facility] Medical History Vitamin D deficiency Vitamin B deficiency CKD [...] in: walking frequency: 1-2 times per week Intake Vital Signs 10/28/24 09:05 11/26/24 10:26 Height 5 ft 3 in 5 ft 3 in Weight: 80.371 kg BMI 31.4 BP 127/72 H Blood Pressure Location Lt brachial Position Sitting Respiration 18 Pulse 77 Pulse Source Monitor Temp 97.7 F L Temperature Source Temporal Artery Pulse Oximetry (%) 94 Oxygen Delivery Method room air Intake Accompanied by: Son Is patient in pain?: Yes (hips) Pain scale (1-10): 7 Allergies empagliflozin (From Jardiance) Adverse Reaction (Unknown, Verified 11/26/24 10:33) yeast infection Medications ?Medication ?Instructions ?Recorded ?Confirmed ?Type aspirin 81 mg tablet,delayed 81 mg PO DAILY 10/19/18 0 11/26/24 History release (Adult Low Dose Aspirin) omeprazole 40 mg capsule,delayed 40 mg PO DAILY 11/26/24 History release calcium carbonate 600 mg PO DAILY 02/05/1901/13 History cholecalciferol (vitamin D3) 50 2,000 unit PO DAILY 11/26/24 History mcg (2,000 unit) capsule multivitamin with minerals 1 ea PO DAILY 02/05/1901/13 History dapagliflozin propanediol 10 mg 10 mg PO QAM 06/28/24 11/26/24 History tablet (Farxiga) rosuvastatin 20 mg tablet 20 mg PO QDAY 06/28/2411/26 History verapamil 40 mg tablet 120 mg PO DAILY 06/28/2401/13 History ferrous sulfate 325 mg (65 mg 325 mg PO QDAY 10/17/24 11/26/24 History iron) tablet lisinopril 20 mg tablet 20 mg PO QDAY 10/17/2411/26 History mecobalamin (vitamin B12) 500 mcg mcg PO 10/17/2401/13 History chewable tablet metformin 1,000 mg tablet 1,000 mg PO BID 10/17/2401/13 History Have you fallen in the past year?: No Central Venous Access Central Venous Access: No Laboratory Tests 10/28/24 11:01 WBC 9.5 Hgb 12.6 Hct 38.5 Plt Count 300 Sodium 140 Potassium 4.5 Chloride 103 Carbon Dioxide 21.1 BUN 19 Creatinine 0.96 Glucose 148 H Uric Acid 3.8 Calcium 10.0 Phosphorus 3.4 Magnesium 1.9 Iron 37 L Iron Saturation 11.8 L Ferritin 21 L Total Bilirubin 0.26 GGT 18 AST 22 ALT 18 Alkaline Phosphatase 41 Lactate Dehydrogenase 158 C-React Prot Ext Range < 3.00 Total Protein 7.7 Total Protein (PEP) 7.4 Albumin 4.6 Globulin 3.1 Vitamin B12 622 IgG 789 IgA 176 IgM 598 H DEE M-Kris Comment: DEE Comments Comment Free Ulmer LC, Quant 30.9 H Free Lambda LC, Quant 29.9 H Free Ulmer/Lambda Ratio 1.03 11/20/[address]/Soft Tissue Neck WITH Contrast IMPRESSION: Study within normal limits CT c/a/p reviewed. CT/CT Chest, Abd, Pel w/Contrast IMPRESSION: No evidence for chest, abdomen, or pelvic metastatic disease. 0 Exam Physical Exam Narrative Walking with a cane. Const alert, oriented x3 and no apparent distress Coding Level of Care Code Off vis,est,level 4 Exam Problem Focused Diagnoses Macroglobulinemia C88.00 Iron deficiency E61.1 Osteoarthritis of right hip, unspecified osteoarthritis type M16.11 Osteoarthritis type: unspecified Laterality: right Assessment and Plan Assessment and Plan (1) Macroglobulinemia: Status: Chronic Comment: High IgM level, no m-protein. Labs reviewed. CT on 11/20/2024 reviewed, showed no lymphadenopathy or cancer, shows osteoarthritis of the R hip. Plan: To do observation. Monitor M-proteins. RTC 6 months. (2) Iron deficiency: Status: Chronic Comment: Iron profile is low but HGB is normal. Plan: To continue Oral iron daily. (3) Hip osteoarthritis: Status: Chronic Qualifiers: Osteoarthritis type: unspecified Laterality: right Qualified Code(s): M16.11 - Unilateral primary osteoarthritis, right hip Comment: Has been referred to Orthopedic surgeon by PCP Plan: To proceed with consultation. Plan Details Follow Up: 6 Months Clinical Quality Measures Falls Risk Screening/Assistive Devices Have you fallen in the past year?: No 11/26/24 1115 <Electronically signed by Kong Shi> Date _ Kong Vieira MD Cosigner Signature: Date (if applicable) CC: Dr. Scott Steele MD ~ [facility] Work Phone: Reason for referral (narrative)No reason for referral information availableWCleveland Clinic Children[facility] Work Phone: Chief Complaint and Reason for [...] Visit Admit Date Encounter for screening colonoscopy [facility] 2024 9:51am Encounter for screening colonoscopy Apri [...] am MACROGLOBNEMA November 12, 2024 9:20 am Chief Complaint Admit Date Amb Documentation October 17, 2024 10:25 am EORDER BILATERAL HIPS/ LUMBAR October 25, 2024 8:56am MGUS October 28, 2024 8:11a m MED ONC October 28, 2024 10:31 am E ORDER November 06, 2024 8:20 am MACROGLOBNEMA November 12, 2024 9:20 am MARCOGLOBONEMIA November 20, 2024 1:23p m Chief Complaint Admit Date Amb Documentation October 17, 2024 10:25 am EORDER BILATERAL HIPS/ LUMBAR October 25, 2024 8:56am MGUS October 28, 2024 8:11a m MED ONC October 28, 2024 10:31 am E ORDER November 06, 2024 8:20 am MACROGLOBNEMA November 12, 2024 9:20 am MARCOGLOBONEMIA November 20, 2024 1:23p m 4[facility] LABS PRIOR REVIEW CT/BONE SURVEY Ju ly 2024 9:18am Reason for Visit Admit Date Encounter for screening colonoscopy Apri l 2024 9:16am Iron deficiency October 28, 2024 8:11a m Macroglobulinemia October 28, 2024 8:11a m Hip osteoarthritis November 26, 2024 9:18a m Iron deficiency November 26, 2024 9:18a m Macroglobulinemia November 26, 2024 9:18a m Chief Complaint Admit Date Amb Documentation October 17, 2024 10:25 am EORDER BILATERAL HIPS/ LUMBAR October 25, 2024 8:56am MGUS October 28, 2024 8:11a m MED ONC October 28, 2024 10:31 am E ORDER November 06, 2024 8:20 am MACROGLOBNEMA November 12, 2024 9:20 am MARCOGLOBONEMIA November 20, 2024 1:23p m 4[facility] LABS PRIOR REVIEW CT/BONE SURVEY Deanna ly 2024 9:18am RIGHT HIP December 04, 2024 10:1 4am Chief Complaint Admit Date Amb Documentation October 17, 2024 10:25 am EORDER BILATERAL HIPS/ LUMBAR October 25, 2024 8:56am MGUS October 28, 2024 8:11a m MED ONC October 28, 2024 10:31 am E ORDER November 06, 2024 8:20 am MACROGLOBNEMA November 12, 2024 9:20 am MARCOGLOBONEMIA November 20, 2024 1:23p m 4[facility] LABS PRIOR REVIEW CT/BONE SURVEY Deanna ly 2024 9:18am RIGHT HIP December 04, 2024 10:1 4am templating for right MIKE - right hip Aug ust 2024 9:20am Reason for Visit Admit Date Encounter for screening colonoscopy Apri l 2024 9:16am Iron deficiency October 28, 2024 8:11a m Macroglobulinemia October 28, 2024 8:11a m Hip osteoarthritis November 26, 2024 9:18a m Iron deficiency November 26, 2024 9:18a m Macroglobulinemia November 26, 2024 9:18a m Degenerative joint disease of right hip December 04, 2024 10:14am Lumbar spondylosis December 04, 2024 10:1 4am Hip osteoarthritis December 04, 2024 10:1 4am Iron deficiency December 04, 2024 10:1 4am Macroglobulinemia December 04, 2024 10:1 4am Chief Complaint Admit Date Amb Documentation October 17, 2024 10:25 am EORDER BILATERAL HIPS/ LUMBAR October 25, 2024 8:56am MGUS October 28, 2024 8:11a m E ORDER November 06, 2024 8:20 am MACROGLOBNEMA November 12, 2024 9:20 am MARCOGLOBONEMIA November 20, 2024 1:23p m 4[facility] LABS PRIOR REVIEW CT/BONE SURVEY Ju ly 2024 9:18am RIGHT HIP December 04, 2024 10:1 4am templating for right MIKE - right hip Dec us2024 9:20am MED ONC December 25, 2024 1:0 0pm Family History No Family History Records Found Relationship Condition Age at Onset Recorded Date/T raciel mother Malignant neoplasm Unknown Hypertension Unknown Hypercholesterolemia Unknown Cerebrovascular accident (CVA) Unknown father Cardiac disease Unknown Kidney disorder Unknown Advance Directives No Advanced Directives Records Found Advance Directive Response Recorded Date/ Time Living Will Yes February 05, 2019 10:48am Power of Certified Nursing Assistant Yes January 10:48am Advance Directive Response Recorded Date/ Time Living Will Yes February 05, 2019 9:48am Power of Certified Nursing Assistant Yes January 9:48am Advance Directive Response Recorded Date/ Time Living Will Yes August 29, 2024 2:31pm Do you have a Healthcare Power of Certified Nursing Assistant? Yes August 29, 2024 2:31pm Name of Medical Power of Certified Nursing Assistant ROMERO-SON August 29, 2024 2:31pm Summary Purpose Additional [...] Steele MD Primary Care Provider Active Miles AUGUSTIN PA Attending Provider, Referring Provi rochelle Active [...] Active Kiara AUGUSTIN PA Other Provider Active Library Services Assistant Relationship Specialty Start Date End Date Scott Steele MD [address] [facility] [address] [place] [address] PCP - General Family Medicine 03/22/24 Library Services Assistant Relationship Specialty Start Date End Date Scott Steele MD [address] [facility] [address] [place] [address] PCP - General Family Medicine 03/22/24 Juan Ramon Purcell MD [address] [place] [address] [phone] (work) Hematology/Oncology 05/07/24 Team Status: Active Member Role [...] Status: Inactive Member Role Status Dates Dr. Sctot Steele MD Primary Care Provider Active Start: [...] November 12, 2024 End: November 12, 2024 Team Status: Inactive Member Role/Relationship Status Dates Dr. Scott Steele MD Primary Care Provider Active Start: November 20, 2024 End: November 20, 2024 Dr. Kong Vieira MD Attending Provider Active S tart: November 20, 2024 End: November 20, 2024 Dr. Kong Vieira MD Referring Provider Active S tart: November 20, 2024 End: November 20, 2024 Team Status: Inactive Member Role/Relationship Status Dates Dr. Scott Steele MD Primary Care Provider Active Start: November 26, 2024 End: November 26, 2024 Dr. Scott Steele MD Referring Provider Active Start: November 26, 2024 End: November 26, 2024 Dr. Kong Vieira MD Attending Provider Active S tart: November 26, 2024 End: November 26, 2024 Team Status: Inactive Member Role/Relationship Status Dates Dr. Scott Steele MD Primary Care Provider Active Start: December 04, 2024 End: December 04, 2024 Dr. Scott Steele MD Referring Provider Active Start: December 04, 2024 End: December 04, 2024 Dr. Kong Murrell DO Attending Provider Active Start: December 04, 2024 End: December 04, 2024 Team Status: Inactive Member Role/Relationship Status Dates Dr. Scott Steele MD Primary Care Provider Active Start: December 18, 2024 End: December 18, 2024 Dr. Scott Steele MD Attending Provider Active Start: December 18, 2024 End: December 18, 2024 Dr. Scott Steele MD Referring Provider Active Start: December 18, 2024 End: December 18, 2024 Team Status: Active Member Role/Relationship Status Dates Dr. Scott Steele MD Primary Care Provider Active Start: December 20, 2024 Dr. Kong Murrell DO Attending Provider Active Start: December 20, 2024 Dr. Kong Murrell DO Referring Provider Active Start: December 20, 2024 Team Status: Inactive Member Role/Relationship Status [...] November 12, 2024 End: November 12, 2024 Team Status: Inactive Member Role/Relationship Status Dates Dr. Scott Steele MD Primary Care Provider Active Start: November 20, 2024 End: November 20, 2024 Dr. Kong Vieira MD Attending Provider Active S tart: November 20, 2024 End: November 20, 2024 Dr. Kong Vieira MD Referring Provider Active S tart: November 20, 2024 End: November 20, 2024 Team Status: Inactive Member Role/Relationship Status Dates Dr. Scott Steele MD Primary Care Provider Active Start: November 26, 2024 End: November 26, 2024 Dr. Scott Steele MD Referring Provider Active Start: November 26, 2024 End: November 26, 2024 Dr. Kong Vieira MD Attending Provider Active S tart: November 26, 2024 End: November 26, 2024 Team Status: Inactive Member Role/Relationship Status Dates Dr. Scott Steele MD Primary Care Provider Active Start: December 04, 2024 End: December 04, 2024 Dr. Scott Steele MD Referring Provider Active Start: December 04, 2024 End: December 04, 2024 Dr. Kong Murrell DO Attending Provider Active Start: December 04, 2024 End: December 04, 2024 Team Status: Inactive Member Role/Relationship Status Dates Dr. Scott Steele MD Primary Care Provider Active Start: December 18, 2024 End: December 18, 2024 Dr. Scott Steele MD Attending Provider Active Start: December 18, 2024 End: December 18, 2024 Dr. Scott Steele MD Referring Provider Active Start: December 18, 2024 End: December 18, 2024 Team Status: Inactive Member Role/Relationship Status Dates Dr. Scott Steele MD Primary Care Provider Active Start: December 20, 2024 End: December 20, 2024 Dr. Kong Murrell DO Attending Provider Active Start: December 20, 2024 End: December 20, 2024 Dr. Kong Murrell DO Referring Provider Active Start: December 20, 2024 End: December 20, 2024 Team Status: Active Member Role/Relationship Status Dates Dr. Scott Steele MD Primary Care Provider Active Start: December 25, 2024 Dr. Kong Vieira MD Attending Provider Active S tart: December 25, 2024 Dr. Kong Vieira MD Referring Provider Active S tart: December 25, 2024 Source Comments (unrecognize d section and content) In the event this informatio n is protected by the Federal Confidentiality of Alcohol and Drug Abuse Patient Records regulations: The Federal rules restrict any use of the information to criminally investigate or prosecute any alcohol or drug abuse patient.[facility] the event this information is protected by the Federal Confidentiality of Alcohol and Drug Abuse Patient Records regulations: The Federal rules restrict any use of the information to criminally investigate or prosecute any alcohol or drug abuse patient.[facility] Reason for Visit (unrecogniz ed section and content) Reason Comments New Patient Evaluation INFORMATION SOURCE (unrecogn ized section and content) DATE CREATED AUTHOR 10/16/2024 [facility] DATE CREATED AUTHOR AUTHOR'S ORGANIZ ATION 12/20/2024 [facility] DATE CREATED AUTHOR AUTHOR'S ORGANIZ ATION 01/03/2025 [facility] FOR RECORDS PERTAINING TO PATIENTS WHO ARE [...] BE BASED ON THE PRIMARY CLINICAL RECORDS. [facility]. provides no warranty or guarantee of the accuracy or completeness of information in this document.
--- NOTE | 2025-01-06 18:41 | STRESSREP ---
Stress Test Report Pharmacologic myocardial perfusion stress test. 69-year-old lady with a history of abnormal EKG for preoperative cardiac clearance. Resting EKG demonstrates normal sinus rhythm with a rate of 81 bpm. Resting blood pressure is 144/70 mmHg. 0.4 mg of regadenoson was infused per usual protocol followed by rapid intravenous saline flush injection. Continuous EKG monitoring was performed. The maximum heart rate was 106 bpm which was 69% of max impacted heart rate the maximum workload was 1 metabolic equivalent. At rest there were no ST or T wave changes noted to suggest ischemia and at peak infusion nonspecific ST changes were noted which did not meet the criteria for ischemia. No clinical angina is noted. The final blood pressure was 140/70 mmHg. Myocardial perfusion protocol. 11.8 mCi of technetium 99m sestamibi was injected at rest. 0.4 mg of regadenoson was infused per usual protocol. At peak infusion 33.6 mCi of technetium 99m sestamibi was injected stress images were obtained stress and rest images were reconstructed and compared in the short axis vertical long and horizontal long axis. Gated images were also obtained. Perfusion SPECT analysis: Review of the stress images demonstrate normal uptake of tracer noted in all areas of the myocardium. The resting images similar demonstrated normal uptake of tracer noted in all areas of the myocardium. No areas of reversibility are noted to suggest ischemia and no previous infarct is noted. Gated SPECT analysis: The gated ejection fraction is 72% Conclusion: Normal pharmacologic myocardial perfusion stress test. Preserved ejection fraction.
== END | disposition home or self-care (01) ==
LOC: CVS 06:48
PROVIDERS: PCP Family Medicine; Referring Provider Family Medicine; Visit Provider Family Medicine
DX: R94.31 Abnormal electrocardiogram [ECG] [EKG] (principal)
CPT/HCPCS: 78452; 93017; A9500; A4216; J2785

== ENCOUNTER → 2025-02-18 | Outpatient (CLI) | payer MEDICARE, OTHER, SELFPAY ==
[2025-02-18 12:22] LABS: Hematocrit 41.3 % (37-47); Hemoglobin 13.9 g/dL (12.0-15.0); Immature Granulocytes Count 0.070 X10^3/uL (0.0-0.0); Mean Corp Hgb Conc 33.7 g/dL (32-36); Mean Corpuscular Volume 92.2 fL (81-99); Mean Platelet Vol. 11.2 fl (6.2-12.0); NRBC Flagged by Analyzer 0 % (0-5); Platelet Count 248 K/mm3 (150-450); RBC Distribution Width CV 16.1 % (11.6-14.6); RBC Distribution Width SD 54.6 fl (35.1-43.9); Red Blood Count 4.48 M/mm3 (4.2-5.4); White Blood Count 9.2 K/mm3 (4.4-11.0)
[2025-02-18 12:53] LABS: Creatinine, Urine (random) 37.90 mg/dL (28.00-217.00); Microalbumin,Random Urine < 12.0 mg/L (<20 mg/L)
[2025-02-18 13:41] LABS: FOLATES,SERUM (FOLIC ACID) > 40.00 ng/mL (4.60-34.80)
[2025-02-18 14:04] LABS: AST(SGOT) 24 U/L (<=31); Alanine Aminotransfer ALT/SGPT 27 U/L (<=34); Albumin, Serum 4.6 g/dL (3.4-4.8); Alkaline Phosphatase 42 U/L (35-104); Anion Gap 17 (5-15); BUN 22 mg/dL (4-19); BUN/Creat Ratio 21.8 RATIO (10-20); Calcium,Total 10.3 mg/dL (7.6-11.0); Carbon Dioxide 21.4 mmol/L (21.0-32.0); Chloride 100 mmol/L (98-108); Cholesterol 142 mg/dL (<=200); Ferritin 587 ng/mL (22-378); Globulin 3.0 g/dL (2.2-4.2); Glucose 161 mg/dL (70-99); Low Density Lipoprotein Calc. 52 mg/dL; Potassium 4.3 mmol/L (3.3-5.1); Triglycerides 200 mg/dL; Very Low Density Lipoprotein 40 mg/dL (5-40); Vitamin B12 723 pg/mL (180-914); Vitamin D,25 Hydroxy 61.4 ng/mL (30-100); cholesterol:hdl ratio screen 2.86
[2025-02-18 19:55] LABS: Iron 95 ug/dL (50-170); Iron Binding Capacity,Total 241 ug/dL (250-450); Iron Binding Capacity,Unsat 146 ug/dL (228-428)
== END | disposition home or self-care (01) ==
LOC: MTLAB 09:53
PROVIDERS: PCP Family Medicine; Referring Provider Family Medicine; Visit Provider Family Medicine
DX: E53.8 Deficiency of other specified B group vitamins (principal); E11.8 Type 2 diabetes mellitus with unspecified complications; E55.9 Vitamin D deficiency, unspecified; E61.1 Iron deficiency
CPT/HCPCS: 36415; 80053; 80061; 82043; 82306; 82570; 82607; 82728; 82746; 83036; 83540; 83550; 85025